=== PATIENT | male | born 1945 | race Caucasian/White ===

== ENCOUNTER 2017-02-01 06:55 | Emergency (ER) | payer MEDICARE, OTHER ==
[~2017-02-01] VITALS: Ht 177.8 cm; Wt 113.4 kg
[~2017-02-01 06:55] MED LIST: ALPRAZOLAM0.5 MG PO; ASPIRIN325 MG PO; BUPROPION XL150 MG PO; COZAAR100 MG PO; DILAUDID4 MG PO; DILTIAZEM 24HR300 M1 PO; ESCITALOPRAM OX10 MG PO; FLUOXETINE HCL20 MG PO; LEVAQUIN500 MG PO; LIPITOR10 MG PO; LITHIUM CARBON300 M1 PO; MIRALAX17 GM PO; NORCO 10-325 T1 EACH PO; OXYCODONE HCL5 MG PO; PROPRANOLOL HCL20 MG; TRAZODONE HCL50 MG PO; XARELTO10 MG PO
== END 2017-02-01 08:05 | disposition home or self-care (01) ==
LOC: ED 06:55
DX: F41.9 Anxiety disorder, unspecified (principal); I10 Essential (primary) hypertension; E78.00 Pure hypercholesterolemia, unspecified; Z79.899 Other long term (current) drug therapy
CPT/HCPCS: 96374; 99284; J2060

== ENCOUNTER 2017-03-01 06:57 | Emergency (ER) | payer MEDICARE, OTHER ==
[~2017-03-01] VITALS: Ht 177.8 cm; Wt 113.4 kg
== END 2017-03-01 08:17 | disposition home or self-care (01) ==
LOC: ED 06:57
DX: F41.9 Anxiety disorder, unspecified (principal); I10 Essential (primary) hypertension; E78.00 Pure hypercholesterolemia, unspecified; Z79.899 Other long term (current) drug therapy
CPT/HCPCS: 96372; 99282; J2060

== ENCOUNTER 2018-01-18 22:14 | Observation (INO) | payer MEDICARE, OTHER ==
[~2018-01-18] VITALS: Ht 177.8 cm; Wt 108.5 kg
--- OUTSIDE RECORDS SUMMARY | ~2018-01-18 | XMS | Clinical Summary ---
Demographics + + + | Address | [address] | | | [place] [address] | + + + | Home Phone | | + + + | Preferred Language | Unknown | + + + | Marital Status | | + + + | Voodoo Affiliation | Unknown | + + + | Race | Unknown | + + + | Ethnic Group | Unknown | + + + Author + + + | Author | [facility] | + + + | Organization | [facility] | + + + | Address | Unknown | + + + | Phone | Unavailable | + + + Support + + + + + | Name | Relationship | Address | Phone | + + + + + | Johnson Flowers | ECON | [address] | | | | | [place] | | | | | [address] | | + + + + + Care Team Providers + +------+ + | Care Coal Mill Operator Name | Role | Phone | + +------+ + PP | Unavailable | + +------+ + Allergies Not on File Current Medications Not on file Active Problems Not on file Social History + +-------+ +--------+------+ | Tobacco [...] on file | | + + + Plan of Treatment Not on file Results Not on filefrom Last 3 Months"
--- OUTSIDE RECORDS SUMMARY | ~2018-01-18 | XMS | Clinical Summary ---
Demographics + + + | Address | [address] | | | [place] [address] | + + + | Home Phone | | + + + | Preferred Language | Unknown | + + + | Marital Status | | + + + | Confucianism Affiliation | Unknown | + + + | Race | Unknown | + + + | Ethnic Group | Unknown | + + + Author + + + | Author | [facility] | | | and [place] | + + + | Organization | [facility] | | | and [place] | + + + | Address | Unknown | + + + | Phone | Unavailable | + + + Support + + +---------+ + | Name | Relationship | Address | Phone | + + +---------+ + | RAHEEM FLOWERS | ECON | Unknown | | + + +---------+ + Care Team Providers + +------+ + | Care Database Technician Name | Role | Phone | [...] | + + + Plan of Treatment + [...] Vaccine: Influenza | | | | | (#1) | 8 | | | + + + + + Results Not on filefrom Last 3 Months"
--- OUTSIDE RECORDS SUMMARY | ~2018-01-18 | XMS | Clinical Summary ---
Demographics + + + | Address | [address] | | | [place] [address] | + + + | Home Phone | | + + + | Preferred Language | Unknown | + + + | Marital Status | | + + + | Rastafarian Affiliation | Unknown | + + + | Race | Unknown | + + + | Ethnic Group | Unknown | + + + Author + + + | Author | [facility] | + + + | Organization | [facility] | + + + | Address | Unknown | + + + | Phone | Unavailable | + + + Support + + + + + | Name | Relationship | Address | Phone | + + + + + | Johnson Flowers | ECON | [address] | | | | | [place] | | | | | [address] | | + + + + + Care Team Providers + +------+ + | Care Laboratory Machinist Name | Role | Phone | + [...]
--- OUTSIDE RECORDS SUMMARY | ~2018-01-18 | XMS | Clinical Summary ---
Demographics + + + | Address | [address] | | | [place] [address] | + + + | Home Phone | | + + + | Preferred Language | Unknown | + + + | Marital Status | | + + + | Orthodoxy Affiliation | Unknown | + + + | Race | Unknown | + + + | Ethnic Group | Unknown | + + + Author + + + | Author | [facility] | | | and [place] | + + + | Organization | [facility] | | | and [...] Team Providers + +------+ + | Care Certified Medical Transcriptionist Name | Role | Phone | + [...]
--- OUTSIDE RECORDS SUMMARY | ~2018-01-18 | XMS | Clinical Summary ---
Demographics + + + | Address | [address] | | | [place] [address] | + + + | Home Phone | | + + + | Preferred Language | Unknown | + + + | Marital Status | | + + + | Taoist Affiliation | Unknown | + + + | Race | Unknown | + + + | Ethnic Group | Unknown | + + + Author + + + | Author | [facility] | + + + | Organization | [facility] | + + + | Address | Unknown | + + + | Phone | Unavailable | + + + Support + + + + + | Name | Relationship | Address | Phone | + + + + + | Johnson Flowers | ECON | [address] | | | | | [place] | | | | | [address] | | + + + + + Care Team Providers + +------+ + | Care Business Intelligence Manager Name | Role | Phone | [...]
--- OUTSIDE RECORDS SUMMARY | ~2018-01-18 | XMS | Clinical Summary ---
Demographics + + + | Address | [address] | | | [place] [address] | + + + | Home Phone [...] + | Author | [facility] | | | and [place] | + + + | Organization | [facility] | | | and [place] [...] Team Providers + +------+ + | Care Fixer Supervisor Name | Role | Phone | [...]
--- OUTSIDE RECORDS SUMMARY | ~2018-01-18 | XMS | Clinical Summary ---
Demographics + + + | Address | [address] | | | [place] [address] | + + + | Home Phone | | + + + | Preferred Language | Unknown | + + + | Marital Status | | + + + | Confucianism Affiliation | Unknown | + + + | Race | Unknown | + + + | Ethnic Group | Unknown | + + + Author + + + | Author | [facility] | | | and [place] | + + + | Organization | [facility] | | | and [...] Team Providers + +------+ + | Care Multimedia Authoring Specialist Name | Role | Phone | [...]
--- OUTSIDE RECORDS SUMMARY | ~2018-01-18 | XMS | Clinical Summary ---
Demographics + + + | Address | [address] | | | [place] [address] | + + + | Home Phone [...] + + + | Author | [facility] | + + + | Organization | [facility] | + + + | Address | Unknown | + + + | Phone | Unavailable | + + + Support + + + + + | Name | Relationship | Address | Phone | + + + + + | Johnson Flowers | ECON | [address] | | | | | [place] | | | | | [address] | | + + + + + Care Team Providers + +------+ + | Care Oil Well Services Field Supervisor Name | Role | Phone | [...]
--- NOTE | 2018-01-19 02:37 | NUR ---
PATIENT REQUESTING XANAX FOR ANXIETY, PT ANXIOUS ABOUT BEING IN HOSP. TELE#1 IN PLACE, DR NEUMANN NOTIFIED, NEW ORDERS FOR LR AT 100CC/HR AND TO RESTART HOME MED OF XANAX 1MG PO TIDPRN FOR ANXIETY
--- NOTE | 2018-01-19 02:39 | NUR ---
PATIENT ARRIVED TO THE FLOOR VIA STRETCHER. PATIENT AMBULATED FROM THE STRETCHER TO THE HOSPITAL BED A SBA. PATIENTS ADMISSION COMPLETED. PATIENT ASSESMENT COMPLETED AND RECORDED. PATIENT PLACED ON TELE #1. PATIENT ORIENTED TO ROOM AND UNIT. PATIENT VERALIZED UNDERSTANDING. PATIENT DENIES ANY FURTHER NEEDS AT THIS TIME. CALL LIGHT IN REACH.
--- NOTE | 2018-01-19 02:56 | NUR ---
PATIENT GIVEN PRN ANXIETY MEDICATION PER REQUEST. PATIENTS IV FLUIDS STARTED PER ORDER. PATIENT DENIES ANY NEEDS. CALL LIGHT IN REACH.
--- NOTE | 2018-01-19 03:44 | NUR ---
HELPED PT GO TO THE BATHROOM AND BACK TO BED WITH FWW. FIXED HIS TELE. BEDSIDE TABLE AND CALL LIGHT WITHIN REACH.
--- NOTE | 2018-01-19 04:37 | NUR ---
PATIENT HAS RESTED WELL SINCE ARRIVAL. PATIENT IS ON A REGULAR DIET AND HAS NOT EATEN SINCE ARRIVING TO THE FLOOR. PATIENT IS ON TELE #1, SR, HR IN THE 80'S. PATIENT IS A SBA. PATIENT IS AAOX3 AND USES CALL LIGHT APPROPRIATELY.
--- NOTE | 2018-01-19 05:20 | NUR ---
PATIENTS VITALS TAKEN AND RECORDED WITH CEO AND FOUNDER. PATIENT ASSISTED TO THE RESTROOM A SBA. PATIENT WAS ABLE TO VOID. PATIENT IS BACK IN BED RESTING. PATIENT ASSESMENT COMPLETED. PATIENT DENIES ANY PAIN OR SOB. PATIENT IS ON TELE #1, SR, HR 78. PATIENT DENIES ANY FURTHER NEEDS. CALL LIGHT IN REACH.
--- NOTE | 2018-01-19 06:20 | NUR ---
HELPED PT TO THE BATHROOM AND BACK TO BED WITH HIS FWW. BEDSIDE TABLE AND CALL LIGHT WITHIN REACH.
--- NOTE | 2018-01-19 07:40 | NUR ---
DR. NEUMANN IN TO SEE PT, DOING ASSESSMENT AT THIS TIME. PT SITTING UP AT EDGE OF BED. PT ALERT, ORIENTED X 4. PERSONAL SUPPLIES AND CALL LIGHT IN REACH. PT JUST RETURNED FROM BATHROOM, VOIDED 175 ML YELLOW URINE.
--- NOTE | 2018-01-19 08:46 | NUR ---
PT REPORTED 8/10 PAIN TO HIS BACK. GAVE NORCO 10/325 MG, 2 TABS PO PRN. PT'S BREAKFAST DELIVERED BY DIETARY. PT UP TO BATHROOM USING FWW WITH STANDBY ASSIST.
--- NOTE | 2018-01-19 09:15 | NUR ---
JORDAN, DIAGNOSTIC IMAGING IN TO GET PT FOR CT. PT TRANSFERED TO W/C. TO GO TO CT FOR ABDOMEN AND PELVIC CT.
--- NOTE | 2018-01-19 11:40 | NUR ---
PT SITTING UP IN BED. DENIED NEED TO USE RESTROOM. PERSONAL SUPPLIES AND CALL LIGHT IN REACH. NO C/O SHORTNESS OF BREATH OR CHEST PAIN.
--- NOTE | 2018-01-19 14:13 | NUR ---
PATIENT RESTING IN BED, EYES CLOSED. OCCUPATIONAL THERAPY IN ROOM AT THIS TIME. NO OTHER NEEDS.
--- NOTE | 2018-01-19 14:30 | EKG ---
[facility] [address] [place], [place] [address] Signed Atrial flutter with 2:[address] abnormality Abnormal ECG No previous ECGs available Confirmed by LEANNE NEUMANN DO ([id number]) on 01/19/2018 2:30:02 PM Electronically Signed By: LEANNE NEUMANN DO 01/19/18 1430 PATIENT NAME: CLAUDIO ROBERTSRanjeet ECKERT Electrocardiogram DATE OF : 41 PHYSICIAN: LEANNE NEUMANN DO REPORT #: [id number] REPORT IS CONFIDENTIAL AND NOT TO BE RELEASED WITHOUT AUTHORIZATION
--- NOTE | 2018-01-19 14:31 | EKG ---
[facility] [address], [place] [address] Signed Atrial flutter with 4:[address] abnormality Abnormal ECG When compared with ECG of 18-JAN-2018 22:19, (Unconfirmed) Vent. rate has decreased BY 67 BPM Confirmed by LEANNE NEUMANN DO ([id number]) on 01/19/2018 2:30:47 PM Electronically Signed By: LEANNE NEUMANN DO 01/19/18 1431 PATIENT NAME: MOSHE ROBERTS BABAR Electrocardiogram DATE OF : 41 PHYSICIAN: LEANNE NEUMANN DO REPORT #: [id number] REPORT IS CONFIDENTIAL AND NOT TO BE RELEASED WITHOUT AUTHORIZATION
--- NOTE | 2018-01-19 14:40 | NUR ---
PT C/O 01/05 TO HIPS, BACK, AND HIS RIGHT SHOULDER, PT REPORTS THESE ARE CHRONIC. GAVE PT NORCO 10/325 MG 2 TABS PO PRN. PT DENIED OTHER NEEDS, PERSONAL SUPPLIES AND CALL LIGHT IN REACH.
[2018-01-19] MEDS ORDERED: CARTIA XT240 MG PO (16:57)
--- NOTE | 2018-01-19 17:00 | NUR ---
MED REC COMPLETE
--- NOTE | 2018-01-19 17:09 | NUR ---
PT GIVEN VERBAL AND PRINTED EDUCATION ON METOPROLOL, ROCEPHIN, AND LOVENOX. QUESTIONS ASKED AND ANSWERED, PT VERBALIZED UNDERSTANDING. PT IN BED. PT'S BOSS IN TO VISIT HIM. PT GIVEN FRESH ICE WATER. PT DENIED OTHER NEEDS AT THIS TIME. PERSONAL SUPPLIES AND CALL LIGHT IN REACH. PT DENIED SHORTNESS OF BREATH OR CHEST PAIN.
--- NOTE | 2018-01-19 18:24 | NUR ---
PT HAS LR INFUSING AT 100 CC/HR. PT ON A REGULAR DIET. IS TAKING METOPROLOL 25 MG PO BID FOR AFLUTTER WITH RVR, ON TELE # 1, HR HAS BEEN 70s-90s, REMAINED IN AFLUTTER. IS TAKING ROCEPHINE 2 MG IV DAILY FOR UTI. HAD A BM THIS SHIFT. PT UP WITH STANDBY TO 1 PERSON ASSIST WITH FWW. PT WILL HAVE A BMP AND CBC DRAWN IN AM. PT HAS OCCUPATIONAL AND PHYSICAL THERAPY.
--- NOTE | 2018-01-19 18:38 | NUR ---
PATIENT SITTING UP IN BED, CALL LIGHT IN REACH. NO OTHER NEEDS AT THIS TIME.
--- NOTE | 2018-01-19 19:25 | NUR ---
IN ROOM FOR REPORT. PT LAYING IN BED COMFORTABLY WITH FAMILY AT BEDSIDE. PT DENIES FURTHER REQUESTS AT THIS TIME. CALL LIGHT WITHIN REACH. BED IN LOW POSITION.
--- NOTE | 2018-01-19 21:16 | NUR ---
PATIENT GIVEN PRN PAIN MEDICATION PER ORDER. PATIENT ASSISTED TO THE RESTROOM. PATIENT WAS ABLE TO VOID. PATIENT IS BACK IN BED RESTING. NO FURTHER NEEDS NOTED. SCDS IN PLACE. IV INFUSING. CALL LIGHT IN REACH.
--- NOTE | 2018-01-19 22:06 | NUR ---
IN ROOM TO ADMIN PT'S 2100 MEDS PER EMAR. SHIFT ASSESSMENT COMPLETE. PT RESTING IN BED. AOX4, APPROPRIATE. PT DENIED NEED FOR ALPRAZOLAM FOR SLEEP WELL STOOL SOFTENER. MEDICATIONS WITHHELD. EDUCATION PROVIDED. PT'S LUNG SOUNDS CLEAR BILATERALLY, HEART SOUNDS DIMINISHED, RHYTHM REMAINS IRREGULAR, REMAINS A-FLUTTER ON TELE #1. RATE BETWEEN MID 70-80'S. REMAINS ON RA. O2 SAT 95%. PULSES STRONG UPPER/LOWER EXTREMITIES. BT ACTIVE IN ALL QUADRANTS. PT MENTIONS THAT HE HAS SUFFERED FROM CHRONIC BACK/HIP PAIN, CURRENTLY IN NO PAIN 0/10. GENERAL WEAKNESS IN UPPER EXTREMITIES MENTIONED "BAD SHOULDER", RAW PRODUCTS DIRECTOR STRONG, EQUAL. PT GIVEN WARM BLANKETS, DENIES ANY FURTHER REQUESTS. CALL LIGHT WITHIN REACH. BED IN LOW POSITION.
--- NOTE | 2018-01-20 00:18 | NUR ---
PT UP TO BATHROOM WITH 1 PERSON SBA AND FWW. VOIDED 150 MLS CLEAR YELLOW URINE. DENIES ANY DIZZINESS, OR SOB/CP. DENIES PAIN, 0/10, DENIES NEED FOR PAIN MEDICATION. PT AMBULATED WELL, DISCUSSED CORRECT USE OF FWW, AND IMPORTANCE OF SAFE AMBULATION, AND FALL PREVENTION. QUESTIONS ANSWERED. THERMOSTAT ADJUSTED, SCD'S IN PLACE, BED IN LOW POSITION, CALL LIGHT WITHIN REACH. IV INFUSING WNL. NO FURTHER REQUESTS.
--- NOTE | 2018-01-20 01:20 | NUR ---
tele battery changed. patient reports 7/10 pain in joints, mostly back. 1 tab norco provided. patient declines further needs. vs done, wnl.
--- NOTE | 2018-01-20 03:15 | NUR ---
PT UP TO BATHROOM WITH 1 PERSON SBA AND FWW. PT DENIES ANY DIZZINESS/LIGHT HEADEDNESS UPON STANDING. SHIFT ASSESSMENT COMPLETE. LUNG SOUNDS CLEAR. HEART SOUNDS HEARD, RHYTHM IRREGULAR, REMAINS A-FLUTTER ON TELE #1 HR BETWEEN 70'S-80'S. PT C/O PAIN LEVEL OF 5/10 R/T CHRONIC BACK PAIN. PT REFUSED NEED FOR MEDICATION STATING HE DOESN'T NEED ANY. PT BACK INTO BED WITH SCD'S. IV REMAINS WNL. CALL LIGHT WITHIN REACH. BED IN LOW POSITION.
--- NOTE | 2018-01-20 05:54 | NUR ---
VITALS AND I&OS DONE AND CHARTED. GARBAGES EMPTIED. DAILY WEIGHT DONE AND CHARTED. BEDSIDE TABLE AND CALL LIGHT WITHIN REACH.FRESH WATER GIVEN.
--- NOTE | 2018-01-20 06:01 | NUR ---
HELPED PT TO THE BATHROOM AND BACK TO BED WITH HIS FWW.
--- NOTE | 2018-01-20 06:31 | NUR ---
PT SLEPT WELL THROUGHOUT THE NIGHT. GOT UP TO RESTROOM SEVERAL TIMES IN NIGHT. ADEQUATE URINE OUTPUT. AMBULATES WELL WITH 1 PERSON SBA AND FWW. DENIES DIZZINIESS/LIGHT HEADEDNESS. EXTREMITIES REMAIN WEAK. DENIES SOB/CP WITH AMBULATION. REMAINS A-FLUTTER W/HR IN MID 70'S-80'S ON TELE #1. PRN NORCO X3 FOR CHRONIC BACK/HIP PAIN. TOLERATING RA. LR @ 100. REGULAR DIET.
--- NOTE | 2018-01-20 08:10 | NUR ---
PT SITTING IN BED EATING BREAKFAST AT THIS TIME. PT CO/ CHRONIC BACK PAIN OF A 6/10. PT STATES HIS GOAL OF THE DAY IS A 3 OR 4 BUT THAT A 6 IS TOLERABLE. NO N/V, NO NUMBNESS/TINGLING, NO CHEST PAIN, RACING HR OR SOB. EDUCATIONG GIVEN IN REGARDS TO MEDICATION, ESPECIALLY LOPRESSOR AND ITS EFFECTS ON A FLUTTER/HEART RATE. ASSESSMENT AND MEDICATIONS COMPLETED. NO QUESTIONS OR CONCERNS AT THIS TIME. CALL LIGHT AND BELONGINGS WITHIN REACH. FALL PRECAUTIONS IN PLACE. WILL CONTINUE TO MONITOR.
--- NOTE | 2018-01-20 09:24 | NUR ---
pt asked to get up to use the bathroom, assisted pt to bathroom, pt voided, then pt returned to bed anf is sitting up on bed with call light in reach. pt asked for his personal electric razor out of his bag.
--- NOTE | 2018-01-20 12:51 | NUR ---
PT SITTING ON EDGE OF BED; STATES HIS PAIN HAS IMPROVED TO A 6 AFTER GETTING PRN PAIN MEDICATION 2 HOURS AGO. HE HAS NO QUESTIONS OR CONCERNS AT THIS TIME; STATES HE IS INTERESTED IN TAKING A SHOWER SOON. CALL LIGHT AND BELONGINGS WITHIN REACH. WILL CONTINUE TO MONITOR.
--- NOTE | 2018-01-20 13:35 | NUR ---
pt showered himself and only needed set up help. pt aslo brushed teeth and shaved. pt then returned to bed and is sitting up safely with call light inreach.
--- NOTE | 2018-01-20 14:26 | NUR ---
pt is resting in bed. pt has no needs at this time. call light within reach.
--- NOTE | 2018-01-20 14:45 | NUR ---
PT'S PAIN TOLERABLE AT THIS TIME. ASSESSMENT COMPLETED. PT NEEDS TO AMBULATE HALLWAY PER DR. REYES'S REQUEST; PT STATES HE WANTS TO DO THIS AT 1500. CALL LIGHT WITHIN REACH. WILL CONTINUE TO MONITOR.
--- NOTE | 2018-01-20 15:10 | NUR ---
PT AMBULATING WITH STAND BY ASSIST/SUPERVISION AT THIS TIME IN THE HALLWAY; NUMEROUS LAPS AROUND THE UNIT WITH COMMUNITY MANAGER AT HIS SIDE; STATES NO ISSUES WHILE AMBULATING; THIS RN IS MONITORING HE TELE WHILE AMBULATING; HR BOUNCES BETWEEN MID 90'S AND 105. NO C/O SOB OR CHEST PAIN. DR. REYES INFORMED OF HIS AMBULATION WITH NO ISSUES ON TELE. WILL CONTINUE TO MONITOR.
--- NOTE | 2018-01-20 17:38 | NUR ---
pt is sitting up in bed eating dinner. pt has a friend in room visiting. pt has no complaints at this time. call light in reach.
--- NOTE | 2018-01-20 18:20 | NUR ---
PT VS AND CONDITION STABLE TODAY. PT PLEASANT, CALM AND COOPERATIVE WITH INTERMITTENT C/O CHRONIC BACK PAIN. PRN MEDICATION HELPS CONTROL THIS. TELE DC'D TODAY. SALINE LOCKED. BM TODAY. STEADY AND STRONG ON FEET. NO C/O CHEST PAIN OR SOB. PLAN TO DC TOMORROW. RESTING IN BED WATCHING TV AT THIS TIME. CALL LIGHT WITHIN REACH. WILL CONTINUE TO MONITOR.
--- NOTE | 2018-01-20 19:20 | NUR ---
IN ROOM FOR REPORT. PT SETTING UP IN BED. NO REQUESTS AT THIS TIME. CALL LIGHT WITHIN REACH.
--- NOTE | 2018-01-20 20:32 | NUR ---
PT REQUESTED PRN NORCO FOR PAIN OF 01/05 R/T CHRONIC BACK PAIN. PT GIVEN 1 TAB NORCO PER EMAR. NO FURTHER REQUESTS AT THIS TIME. CALL LIGHT WITHIN REACH.
--- NOTE | 2018-01-20 21:42 | NUR ---
IN ROOM TO ADMIN EVENING MEDS. SHIFT ASSESSMENT COMPLETE. PT SITTING UP AT BEDSIDE WATCHING TELEVISION. EDUCATION PROVIDED REGARDING MEDICATIONS. DENIES ANY PAIN AT THIS MOMENT. DENIES SOB/CP. PULSES EQUAL BILATERALLY, RHYTHM IRREGULAR. LS CLEAR, BT ACTIVE. PT AMBULATED FROM BED TO BATHROOM INDEPENDENTLY DENIES ANY DIFFICULTY, APPEARS STEADY ON FEET. IV SL. NO NEEDS AT THIS TIME. CALL LIGHT WITHIN REACH.
--- NOTE | 2018-01-21 03:46 | NUR ---
PT CALLED NURSING STATION STATING THAT HE WOULD LIKE A PAIN PILL. PT C/O 12/05 PAIN R/T CHRONIC BACK PAIN. PT GIVEN 1 NORCO PO PER EMAR. NO FURTHER REQUESTS AT THIS TIME. CALL LIGHT WITHIN REACH.
--- NOTE | 2018-01-21 06:09 | NUR ---
PT SLEPT OFF AND ON THROUGHOUT THE NIGHT. PT DID REQUIRE PRN PAIN MEDICATION PER EMAR TWICE THROUGHOUT THE SHIFT. PT A0X4, INDEPENDENT IN ROOM. GOOD URINE OUTPUT. NO C/O SOB/CP, NO DIZZINESS OR LIGHT HEADEDNESS WITH AMBULATION. PT REMAINS ON RA. IV REMAINS SL. REGULAR DIET TOLERATING WELL. NO COMPLAINTS OF N/V/D. HEART RHYTHM REMAINS IRREGULAR. CALL LIGHT WITHIN REACH, NO REQUESTS AT THIS TIME.
--- NOTE | 2018-01-21 06:42 | NUR ---
STANDING WEIGHT AND I&OS DONE AND CHARTED. OFFERED PT MORE ICE WATER , HE REFUSED AND SAID IT TASTED REALLY BAD. I OFFERED HIM SOME JUICE OR OTHER BEVERAGE, HE REFUSED. PT NEEDS NOTHING ELSE AT THIS TIME.
--- NOTE | 2018-01-21 07:52 | NUR ---
patient is awake, said he didnt have much of an appitite and ordered only apple juice for breakfast
--- NOTE | 2018-01-21 08:50 | NUR ---
PT RESTING COMFORTABLY IN BED WATCHING TV AT THIS TIME WITH A C/O CHRONIC BACK PAIN OF A 5/10, STATING THAT THIS WAS TOLERABLE AND PAIN CONTROL WITH PRN PXY IS ADEQUATE. PT PLEASANT, CALM AND COOPERATIVE WITH NO OTHER COMPLAINTS. FURTHER EDUCATION COMPLETED WIHT PT IN REGARDS TO ELIQUIS AND ATRIAL FLUTTER. PT HAD MODERATE UNDERSTANDING BUT STILL NEEDS REINFORCEMENT AND CONTINUING EDUCATION. SALINE LOCKED. LAST BM YESTERDAY. NO QUESTIONS OR CONCERNS AT THIS TIME. CALL LIGHT AND BELONGINGS WITHIN REACH. WILL CONTINUE TO MONITOR.
[2018-01-21] MEDS ORDERED: ELIQUIS5 MG PO (09:27)
[2018-01-21] MEDS ORDERED: BACTRIM DS TAB1 EACH PO (09:27)
[2018-01-21] MEDS ORDERED: TOPROL XL50 MG PO (09:28)
--- NOTE | 2018-01-21 09:40 | NUR ---
pt has no needs at this time. pt sitting on side of bed. call light within reach.
--- NOTE | 2018-01-21 10:24 | NUR ---
PT SITTING UP IN BED WATCHING TV WITH INCREASED PAIN IN HIS BACK; REQUESTED 1 PAIN PILL WHICH WAS GIVEN AT THIS TIME. NO OTHER QUESTIONS OR CONCERNS. PT READY FOR DC. AWAITING PHARMACY TO PROVIDE EDUCATION. CALL LIGHT WITHIN REACH. WILL CONTINUE TO MONITOR.
== END 2018-01-21 11:25 | disposition home or self-care (01) ==
LOC: ED 22:14 → MS 22:15 → ED 01-19 01:31 → MS 01-19 01:31
PROVIDERS: ADMIT Student in an Organized Health Care Education/Training Program
DX: I48.92 Unspecified atrial flutter (principal); I48.91 Unspecified atrial fibrillation; N30.00 Acute cystitis without hematuria; B96.20 Unspecified Escherichia coli [E. coli] as the cause of diseases classified elsewhere; E78.5 Hyperlipidemia, unspecified; I10 Essential (primary) hypertension; F41.9 Anxiety disorder, unspecified; G89.29 Other chronic pain; M54.9 Dorsalgia, unspecified; F11.20 Opioid dependence, uncomplicated; F51.04 Psychophysiologic insomnia; Z79.899 Other long term (current) drug therapy
CPT/HCPCS: 36415; 71045; 71260; 74176; 80048; 80053; 81001; 83605; 83735; 83880; 84443; 84484; 85025; 85379; 85610; 85730; 87077; 87088; 87186; 93005; 93010; 96372; 96374; 96375; 96376; 97161; 97165; 99285; G0378; G8978; G8979; G8980; J0696; J1650; J7120; Q9967

== ENCOUNTER 2019-09-10 14:03 | Emergency (ER) | payer MEDICARE, OTHER ==
[~2019-09-10] VITALS: Ht 177.8 cm; Wt 108.5 kg
[~2019-09-10 14:03] MED LIST changes: +BACTRIM DS TAB1 EACH PO; +CARTIA XT240 MG PO; +ELIQUIS5 MG PO; +TOPROL XL50 MG PO
--- OUTSIDE RECORDS SUMMARY | 2019-09-10 14:06 | XMS ---
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 String Studies Director Events No recent Security Events currently on file CRITERIA MET - Group Notification - PDMP CARE PROVIDERS BRETT DALTON Physician Horse Breeder 01/22/2018-Current PHONE: [phone] [place] has no Care Guidelines for this patient. Sheila VISIT COUNT (12 MO.) 1 MALA [facility] TOTAL 1 NOTE: Visits indicate total known visits. ED/UCC VISIT TRACKING (12 MO.) 09/10/2019 14:04 MALA [facility]i [place] TYPE: Emergency COMPLAINT: - SOB INPATIENT VISIT TRACKING (12 MO.) No inpatient visits to display in this time frame [email or web address]
[2019-09-10] MEDS ORDERED: FUROSEMIDE20 MG PO (16:26)
[2019-09-10] MEDS ORDERED: ALPRAZOLAM0.5 MG PO (16:26)
--- NOTE | 2019-09-11 12:45 | EKG ---
[facility] [address], [place] [address] Signed Normal sinus rhythm Normal ECG When compared with ECG of 12-AUG-2019 16:56, No significant change was found Confirmed by NATALIE REYES MD ([id number]) on 09/11/2019 12:45:10 PM Electronically Signed By: NATALIE REYES MD 09/11/19 1245 PATIENT NAME: MOSHE ROBERTS Electrocardiogram DATE OF : 41 PHYSICIAN: NATALIE REYES MD REPORT #: [id number] REPORT IS CONFIDENTIAL AND NOT TO BE RELEASED WITHOUT AUTHORIZATION
== END 2019-09-10 16:36 | disposition home or self-care (01) ==
LOC: ED 14:03
DX: I11.0 Hypertensive heart disease with heart failure (principal); I50.9 Heart failure, unspecified; F41.9 Anxiety disorder, unspecified; E78.00 Pure hypercholesterolemia, unspecified; Z79.899 Other long term (current) drug therapy
CPT/HCPCS: 71045; 80053; 83735; 83880; 84484; 85025; 93005; 93010; 99285-25

== ENCOUNTER 2019-10-01 02:13 | Emergency (ER) | payer MEDICARE, OTHER ==
[~2019-10-01] VITALS: Ht 177.8 cm; Wt 113.4 kg
--- OUTSIDE RECORDS SUMMARY | ~2019-10-01 | XMS | Encounter Summary ---
Demographics + + + | Address | [address] | | | [place] [address] | + + + | Home Phone | | + + + | Preferred Language | Unknown | + + + | Marital Status | | + + + | Jehovah'S Witness Affiliation | Unknown | + + + | Race | Unknown | + + + | Ethnic Group | Unknown | + + + Author + + + | Author | [facility] | | | and [place] | + + + | Organization | [facility] | | | and [place] | + + + | Address | Unknown | + + + | Phone | Unavailable | + + + Support + + + + + | Name | Relationship | Address | Phone | + + + + + | Johnson Flowers | ECON | [address] | | | | | [place] | | | | | [address] | | + + + + + Care Team Providers + +------+ + | Care Exhauster Name | Role | Phone | + [...] + + | 03/25/ | Telephone | [facility] | Radha Sanchez | Medication Question | | 2019 | | CARDIOLOGY [facility] | LEATHA [address] | | | | | [address] | [address] | | | | | [address] | [place] [address] | | | | | [place] | [phone] | | | | | [address] | | | | | | [phone] | | | +--------+ + + + [...] | | | | | | [place] [address] | | | | | | [phone] | | | | | | | | +--------+---------+ + + + documented as of this encounter Visit Diagnoses Not on filedocumented in this encounter"
--- OUTSIDE RECORDS SUMMARY | ~2019-10-01 | XMS | Encounter Summary ---
Demographics + + + | Address | [address] | | | [place] [address] | + + + | Home Phone | | + + + | Preferred Language | Unknown | + + + | Marital Status | | + + + | Mormon Affiliation | Unknown | + + + | Race | Unknown | + + + | Ethnic Group | Unknown | + + + Author + + + | Author | [facility] | | | and [place] | + + + | Organization | [facility] | | | and [place] | + + + | Address | Unknown | + + + | Phone | Unavailable | + + + Support + + + + + | Name | Relationship | Address | Phone | + + + + + | Johnson Flowers | ECON | [address] | | | | | [place] | | | | | [address] | | + + + + + Care Team Providers + +------+ + | Care Auto Transport Driver Name | Role | Phone | + [...] + + | 08/14/ | Telephone | [facility] | Radha Sanchez | Testing | | 2020 | | CARDIOLOGY [facility]J | [address] | | | | | [address] [facility] | [address] | | | | | [address] | [place] [address] | | | | | [place] | [phone] | | | | | [address] | | | | | | [phone] | | | +--------+ + + + [...] | | | | | | [place] [address] | | | | | | [phone] | | | | | | | | +--------+---------+ + + + documented as of this encounter Visit Diagnoses Not on filedocumented in this encounter"
--- OUTSIDE RECORDS SUMMARY | ~2019-10-01 | XMS | Encounter Summary ---
Demographics + + + | Address | [address] | | | [place] [address] | + + + | Home Phone | | + + + | Preferred Language | Unknown | + + + | Marital Status | | + + + | Voodoo Affiliation | Unknown | + + + | Race | Unknown | + + + | Ethnic Group | Unknown | + + + Author + + + | Author | [facility] | | | and [place] | + + + | Organization | [facility] | | | and [place] | + + + | Address | Unknown | + + + | Phone | Unavailable | + + + Support + + + + + | Name | Relationship | Address | Phone | + + + + + | Johnson Flowers | ECON | [address] | | | | | [place] | | | | | [address] | | + + + + + Care Team Providers + +------+ + | Care Human Resources Records Clerk Name | Role | Phone | + +------+ + PCP | Unavailable | + +------+ + Encounter Details +--------+ + + + + | Date | Type | Department | Care Team | Description | +--------+ + + + + | 10/05/ | Hospital | [facility] | Rick Gamez | Open fracture of | | 1997 - | Encounter | [facility] [address] | [address] | middle or proximal | | | | [address] | [place] [address] | phalanx or phalanges | | 10/06/ | | [place], [place] | [phone] | of hand | | 1997 | | [address] | | | | | | [phone] | | | +--------+ + + + [...] | | | | | | [place] [address] | | | | | | [phone] | | | | | | | | +--------+---------+ + + + documented as of this encounter Visit Diagnoses + + | Diagnosis | + + | Open fracture of middle or proximal phalanx or phalanges of hand | + + documented in this encounter"
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
--- OUTSIDE RECORDS SUMMARY | ~2019-10-01 | XMS | Encounter Summary ---
Demographics + + + | Address | [address] | | | [place] [address] | + + + | Home Phone | | + + + | Preferred Language | Unknown | + + + | Marital Status | | + + + | Samaritan Affiliation | Unknown | + + + | Race | Unknown | + + + | Ethnic Group | Unknown | + + + Author + + + | Author | [facility] | | | and [place] | + + + | Organization | [facility] | | | and [place] | + + + | Address | Unknown | + + + | Phone | Unavailable | + + + Support + + + + + | Name | Relationship | Address | Phone | + + + + + | Johnson Flowers | ECON | [address] | | | | | [place] | | | | | [address] | | + + + + + Care Team Providers + +------+ + | Care Personal Care Service Provider Name | Role | Phone | + [...] | +--------+ + + + + | 04/17/ | Telephone | [facility] | Radha Sanchez | Medication Question | | 2019 | | CARDIOLOGY PJ | [address] | | | | | [address] | [address] | | | | | [address] | [place] [address] | | | | | [place] | [phone] | | | | | [address] | | | | | | [phone] | | | +--------+ + + + [...] | | | | | | [place] [address] | | | | | | [phone] | | | | | | | | +--------+---------+ + + + documented as of this encounter Visit Diagnoses Not on filedocumented in this encounter"
--- OUTSIDE RECORDS SUMMARY | ~2019-10-01 | XMS | Encounter Summary ---
Demographics + + + | Address | [address] | | | [place] [address] | + + + | Home Phone | | + + + | Preferred Language | Unknown | + + + | Marital Status | | + + + | Hindu Affiliation | Unknown | + + + | Race | Unknown | + + + | Ethnic Group | Unknown | + + + Author + + + | Author | [facility] | | | and [place] | + + + | Organization | [facility] | | | and [place] | + + + | Address | Unknown | + + + | Phone | Unavailable | + + + Support + + + + + | Name | Relationship | Address | Phone | + + + + + | Johnson Flowers | ECON | [address] | | | | | [place] | | | | | [address] | | + + + + + Care Team Providers + +------+ + | Care Construction Crew Member Name | Role | Phone | + +------+ + | Zahra Quevedo | PCP | | + +------+ + Encounter Details +--------+ + + + + | Date | Type | Department | Care Team | Description | +--------+ + + + + | 03/26/ | Orders Only | [facility] | Radha Sanchez | Mixed hyperlipidemia | | 2019 | | CARDIOLOGY [place] | [address] | (Primary Dx) | | | | [address] | [address] | | | | | [address] [place], [place] | [place] [address] | | | | | [address] | [phone] | | | | | [phone] | | | +--------+ + + + [...] | | | | | | [place] [address] | | | | | | [phone] | | | | | | | | +--------+---------+ + + + documented as of this encounter Visit Diagnoses + + | Diagnosis | + + | Mixed hyperlipidemia - Primary | + + documented in this encounter"
--- OUTSIDE RECORDS SUMMARY | ~2019-10-01 | XMS | Encounter Summary ---
Demographics + + + | Address | [address] | | | [place] [address] | + + + | Home Phone | | + + + | Preferred Language | Unknown | + + + | Marital Status | | + + + | Buddhism Affiliation | Unknown | + + + | Race | Unknown | + + + | Ethnic Group | Unknown | + + + Author + + + | Author | [facility] | | | and [place] | + + + | Organization | [facility] | | | and [place] | + + + | Address | Unknown | + + + | Phone | Unavailable | + + + Support + + + + + | Name | Relationship | Address | Phone | + + + + + | Johnson Flowers | ECON | [address] | | | | | [place] | | | | | [address] | | + + + + + Care Team Providers + +------+ + | Care Performance Improvement Director Name | Role | Phone | + +------+ + | Zahra Quevedo | PCP | | + +------+ + Encounter Details +--------+ + + + + | Date | Type | Department | Care Team | Description | +--------+ + + + + | 01/11/ | Orders Only | [facility] | Radha Sanchez | Paroxysmal atrial | | 2019 | | CARDIOLOGY [place] | [address] | fibrillation (HCC); | | | | [address] | [address] | Localized edema; | | | | [address] | [place] [address] | Essential (primary) | | | | [place], [place] | [phone] | hypertension; Mixed | | | | [address] | | hyperlipidemia; Long | | | | [phone] | | term current use of | [...] | | | | | | [place] [address] | | | | | | [phone] | | | | | | | | +--------+---------+ + + + + +------+--------+ + + | Name | Type | Priori | Associated Diagnoses | Order Schedule | | | | ty | | | + +------+--------+ + + | CBC with | Lab | Routin | 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
--- OUTSIDE RECORDS SUMMARY | ~2019-10-01 | XMS | Encounter Summary ---
Demographics + + + | Address | [address] | | | [place] [address] | + + + | Home Phone | | + + + | Preferred Language | Unknown | + + + | Marital Status | | + + + | Sikh Affiliation | Unknown | + + + | Race | Unknown | + + + | Ethnic Group | Unknown | + + + Author + + + | Author | [facility] | | | and [place] | + + + | Organization | [facility] | | | and [place] | + + + | Address | Unknown | + + + | Phone | Unavailable | + + + Support + + + + + | Name | Relationship | Address | Phone | + + + + + | Johnson Flowers | ECON | [address] | | | | | [place] | | | | | [address] | | + + + + + Care Team Providers + +------+ + | Care Armorer Technician Name | Role | Phone | [...] Provider Unknown | | | | | [place], [place] | [phone] | | | | | [address] | | | | | | [phone] | | | +--------+ + + + [...] | | | | | | [place] [address] | | | | | | [phone] | | | | | | | | +--------+---------+ + + + documented as of this encounter Visit Diagnoses Not on filedocumented in this encounter"
--- OUTSIDE RECORDS SUMMARY | ~2019-10-01 | XMS | Clinical Summary ---
Demographics + + + | Address | [address] | | | [place] [address] | + + + | Home Phone | | + + + | Preferred Language | Unknown | + + + | Marital Status | | + + + | Uatsdin Affiliation | Unknown | + + + | Race | Unknown | + + + | Ethnic Group | Unknown | + + + Author + + + | Author | [facility] (Historical as of | | | 01-12-19) | + + + | Organization | [facility] (Historical as of | | | 01-12-19) | + + + | Address | Unknown | + + + | Phone | Unavailable | + + + Support + + + + + | Name | Relationship | Address | Phone | + + + + + | Johnson Roberts | ECON | [address] | | | | | [place] | | | | | [address] | | + + + + + Care Team Providers + +------+ + | Care Shipwright Helper Name | Role | Phone | + [...] + + | Overview: Eliquis 5 mg BID:[id number] VASC score 3 ( age, HTN) | [...] [place] - [place] | [place] - | [id number] | Medica | | | | | [...] +--------+-------+ + | MEDICAID | [place] | [id number] | | | [address] | | | N | | | | [place] | | | [place]OM | | | | [address] | | | QA AUDITOR | | | | | + +--------+ [...] | Self | [birth year] | Home: | [address] | | | [place] | | 1946 | [phone] | [place] | | | may | | | [address] | [address] | + +--------+ +--------+ + +
--- OUTSIDE RECORDS SUMMARY | ~2019-10-01 | XMS | Encounter Summary ---
Demographics + + + | Address | [address] | | | [place] [address] | + + + | Home Phone | | + + + | Preferred Language | Unknown | + + + | Marital Status | | + + + | Restorationism Affiliation | Unknown | + + + [...] + | Johnson Flowers | ECON | [address] | | | | | [place] | | | | | [address] | | + + + + + Care Team Providers + +------+ + | Care Hooker On Name | Role | Phone | + [...] + + | 03/26/ | Telephone | [facility] | Radha Sanchez | Medication Question | | 2018 | | CARDIOLOGY [place] | [address] | | | | | [address] | [address] | | | | | [address] [place] | [place] [address] | | | | | [address] | [phone] | | | | | [phone] | | | +--------+ + + + [...] | | | | | | [place] [address] | | | | | | [phone] | | | | | | | | +--------+---------+ + + + documented as of this encounter Visit Diagnoses Not on filedocumented in this encounter"
--- OUTSIDE RECORDS SUMMARY | ~2019-10-01 | XMS | Encounter Summary ---
Demographics + + + | Address | [address] | | | [place] [address] | + + + | Home Phone | | + + + | Preferred Language | Unknown | + + + | Marital Status | | + + + | Mormon Affiliation | Unknown | + + + | Race | Unknown | + + + | Ethnic Group | Unknown | + + + Author + + + | Author | [facility] | | | and [place] | + + + | Organization | [facility] | | | and [place] | + + + | Address | Unknown | + + + | Phone | Unavailable | + + + Support + + + + + | Name | Relationship | Address | Phone | + + + + + | Johnson Flowers | ECON | [address] | | | | | [place] | | | | | [address] | | + + + + + Care Team Providers + +------+ + | Care Carpenter And Joiner Name | Role | Phone | + [...] [place] | | | | | [place], [place] | [address] | | | | | [address] | [phone] | | | | | [phone] | | | +--------+ + + + [...] [place], | | | | | | [place] [address] | | | | | | [phone] | | | | | | | [...] 1.00 m/s | | | MV Dec [place]: 2.61 m/s2 MV DecT: 274.46 ms MV E [place]: 0.71 | | | m/s MV E/A Ratio: 0.71 MV PHT: 79.59 ms MVA By PHT: 2.76 | | | cm2 Septal e': 0.04 m/s Septal E/e': 16.10 Lateral e': | | | 0.07 m/s Lateral E/e': 9.86 Greaser Helper: NATALIE Authenticated by: | | | ADOLPH [...] | 4.21 cmLVPWd: 1.32 cmLVOT Area: 3.89 [id number] Diam: 2.22 cm%FS: 28.88 %EF(Teich): | | [...] mlLAESV Index (A-L): 22.56 ml/m2LAAs A2C: 17.44 [id number] A-L A2C: 48.26 mlLALs | | A2C: 5.35 cmLAAs A4C: 18.51 [id number] A-L A4C: 53.52 mlLALs A4C: 5.43 cmRAAs: | | 14.80 gp3ABZLB A-L: 35.75 mlRAESV MOD: 35.14 mlRALs: 5.20 cmTAPSE: 2.96 cmAV | | maxP.16 mmHgAV meanP.10 mmHgAV Vmax: 2.74 m/Nicanor Vmean: 2.11 m/Nicanor VTI: | | 66.30 cmAVA Vmax: 1.13 cm2AVA (VTI): 1.24 wh1OFBA maxP.55 mmHgLVOT meanPG: | | 1.26 mmHgLVSI Dopp: 36.38 ml/m2LVSV Dopp: 82.59 mlLVOT Vmax: 0.79 m/sLVOT Vmean: | | 0.52 m/sLVOT VTI: 21.23 cmMV A [place]: 1.00 m/sMV Dec [place]: 2.61 m/s2MV DecT: | | 274.46 msMV E [place]: 0.71 m/sMV E/A Ratio: 0.71MV PHT: 79.59 msMVA By PHT: 2.76 | | vf8Rcoohq e': 0.04 m/sSeptal E/e': 16.10Lateral e': 0.07 m/sLateral E/e': 9.86 | | Greaser Helper: DHAuthenticated by: Vane CORDOVA Date/Time: 02-14-2018 18:15:1 [...] A [place]: 1.00 m/s | |MV Dec [place]: 2.61 m/s2 | |MV DecT: 274.46 ms | |MV E [place]: 0.71 m/s | |MV E/A Ratio: 0.71 | |MV PHT: 79.59 ms | |MVA By PHT: 2.76 cm2 | |Septal e': 0.04 m/s | |Septal E/e': 16.10 | |Lateral e': 0.07 m/s | |Lateral E/e': 9.86 | | | |Greaser Helper: DH | |Authenticated by: ADOLPH LEGGETT MD [...]
--- OUTSIDE RECORDS SUMMARY | ~2019-10-01 | XMS | Encounter Summary ---
Demographics + + + | Address | [address] | | | [place] [address] | + + + | Home Phone | | + + + | Preferred Language | Unknown | + + + | Marital Status | | + + + | Jehovah'S Witness Affiliation | Unknown | + + + | Race | Unknown | + + + | Ethnic Group | Unknown | + + + Author + + + | Author | [facility] | | | and [place] | + + + | Organization | [facility] | | | and [place] | + + + | Address | Unknown | + + + | Phone | Unavailable | + + + Support + + + + + | Name | Relationship | Address | Phone | + + + + + | Johnson Flowers | ECON | [address] | | | | | [place] | | | | | [address] | | + + + + + Care Team Providers + +------+ + | Care Dairy Feed Worker Name | Role | Phone | + +------+ + PCP | Unavailable | + +------+ + Encounter Details +--------+ + + + + | Date | Type | Department | Care Team | Description | +--------+ + + + + | 05/13/ | Hospital | [facility] | | | | 1998 - | Encounter | MED CTR OP REHAB | | | | | | [address] | | | | 03/10/ | | [place] [address] | | | | 1999 | | [phone] | | | +--------+ + + + [...] | | | | | | [place] [address] | | | | | | [phone] | | | | | | | | +--------+---------+ + + + documented as of this encounter Visit Diagnoses Not on filedocumented in this encounter"
--- OUTSIDE RECORDS SUMMARY | ~2019-10-01 | XMS | Encounter Summary ---
Demographics + + + | Address | [address] | | | [place] [address] | + + + | Home Phone | | + + + | Preferred Language | Unknown | + + + | Marital Status | | + + + | Buddhist Affiliation | Unknown | + + + [...] + | Johnson Flowers | ECON | [address] | | | | | [place] | | | | | [address] | | + + + + + Care Team Providers + +------+ + | Care Archival Records Clerk Name | Role | Phone [...] Provider Unknown | | | | | [place], [place] | [phone] | | | | | [address] | | | | | | [phone] | | | +--------+ + + + [...] | | | | | | [place] [address] | | | | | | [phone] | | | | | | | | +--------+---------+ + + + documented as of this encounter Visit Diagnoses Not on filedocumented in this encounter"
--- OUTSIDE RECORDS SUMMARY | ~2019-10-01 | XMS | Encounter Summary ---
Demographics + + + | Address | [address] | | | [place] [address] | + + + | Home Phone [...] + | Johnson Flowers | ECON | [address] | | | | | [place] | | | | | [address] | | + + + + + Care Team Providers + +------+ + | Care Brace End Mainspring Former Name | Role | Phone | + [...] [place] | | | | | | [address] | [address] Phone: | | | | | | Phone: | [phone] | | | | | | [phone] | Fax: | | | | | | Fax: | [phone] | | | | | | [phone] | | +--------+--------+ + + + + Encounter Details +--------+---------+ + + + | Date | Type | Department | Care Team | Description | +--------+---------+ + + + | 03/25/ | Office | [facility] | Radha Sanchez | Paroxysmal atrial | | 2019 | Visit | CARDIOLOGY [place] | [address] | fibrillation (HCC) | | | | [address] | [address] | (Primary Dx); Aortic | | | | [address] | [place] [address] | stenosis, moderate; | | | | [place] | [phone] | Essential | | | | [address] | | hypertension; Mixed | | | | [phone] | | hyperlipidemia; Long | | | [...] December [address] Leggett's documentation. 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 Low voltage QRS,Rate 57 bpm, MA 17 0 ms, QRS 84 ms, QTC 432 ms . tracing personally reviewed by me EK08/27/2018: Normal sinus rhythm, normal EKG, rate 61 bpm, MA 152 ms, QRS 88 ms, QTC 434 ms, tracing personally reviewed by me Addendum EK08/12/2019: Normal sinus rhythm, normal EKG, ongoing low voltage QRS to limb leads, except lead I, and V1, and lateral leads. Rate 61 bpm, MA 158 ms, QRS 82 ms, QTC 428 [...] 3. Essential hypertension 4. 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 Willie REDMOND [facility] Cardiology 03/25/2019 docum ented in this [...] | | | | | | [place] [address] | | | | | | [phone] | | | | | | | [...] | Mixed hyperlipidemia | + + | USP current use of anticoagulant Encounter for long-term (current) use of | | anticoagulants | + + | Pedal edema Edema | + + | Screening for iron deficiency anemia | + + | Screening for thyroid disorder | + + documented in this encounter
--- OUTSIDE RECORDS SUMMARY | ~2019-10-01 | XMS | Encounter Summary ---
Demographics + + + | Address | [address] | | | [place] [address] | + + + | Home Phone | | + + + | Preferred Language | Unknown | + + + | Marital Status | | + + + | Taoism Affiliation | Unknown | + + + [...] + | Johnson Flowers | ECON | [address] | | | | | [place] | | | | | [address] | | + + + + + Care Team Providers + +------+ + | Care Refrigeration Insulator Name | Role | Phone | + +------+ + PCP | Unavailable | + +------+ + Encounter Details +--------+ + + + + | Date | Type | Department | Care Team | Description | +--------+ + + + + | 04/15/ | Hospital | [facility] | | | | 1998 - | Encounter | MED CTR GENERIC IP | | | | | | CONV DEPT [address] | | | | 04/16/ | | [place], | | | | 1998 | | [place] [address] | | | | | | [phone] | | | +--------+ + + + [...] | | | | | | [place] [address] | | | | | | [phone] | | | | | | | | +--------+---------+ + + + documented as of this encounter Visit Diagnoses Not on filedocumented in this encounter"
--- OUTSIDE RECORDS SUMMARY | ~2019-10-01 | XMS | Encounter Summary ---
Demographics + + + | Address | [address] | | | [place] [address] | + + + | Home Phone | | + + + | Preferred Language | Unknown | + + + | Marital Status | | + + + | Evangelical Affiliation | Unknown | + + + [...] + | Johnson Flowers | ECON | [address] | | | | | [place] | | | | | [address] | | + + + + + Care Team Providers + +------+ + | Care Cable Television Access Coordinator Name | Role | Phone | + +------+ + PCP | Unavailable | + +------+ + Encounter Details +--------+ + + + + | Date | Type | Department | Care Team | Description | +--------+ + + + + | 04/15/ | Hospital | [facility] | | | | 1998 - | Encounter | MED CTR GENERIC IP | | | | | | CONV DEPT [address] | | | | 04/16/ | | [place], | | | | 1998 | | [place] [address] | | | | | | [phone] | | | +--------+ + + + [...] | | | | | | [place] [address] | | | | | | [phone] | | | | | | | | +--------+---------+ + + + documented as of this encounter Visit Diagnoses Not on filedocumented in this encounter"
--- OUTSIDE RECORDS SUMMARY | ~2019-10-01 | XMS | Encounter Summary ---
Demographics + + + | Address | [address] | | | [place] [address] | + + + | Home Phone [...] + | Johnson Flowers | ECON | [address] | | | | | [place] | | | | | [address] | | + + + + + Care Team Providers + +------+ + | Care Gravure Press Set Up Operator Name | Role | Phone | + +------+ + | Zahra Quevedo | PCP | | + +------+ + Encounter Details +--------+ + + + + | Date | Type | Department | Care Team | Description | +--------+ + + + + | 03/26/ | Orders Only | [facility] | Radha Sanchez | Mixed hyperlipidemia | | 2019 | | CARDIOLOGY [place] | [address] | (Primary Dx) | | | | [address] | [address] | | | | | [address] [place], [place] | [place] [address] | | | | | [address] | [phone] | | | | | [phone] | | | +--------+ + + + [...] | | | | | | [place] [address] | | | | | | [phone] | | | | | | | | +--------+---------+ + + + documented as of this encounter Visit Diagnoses + + | Diagnosis | + + | Mixed hyperlipidemia - Primary | + + documented in this encounter"
--- OUTSIDE RECORDS SUMMARY | ~2019-10-01 | XMS | Clinical Summary ---
Demographics + + + | Address | [address] | | | [place] [address] | + + + | Home Phone [...] Organization | [facility] | | | and [place] | + + + | Address | Unknown | + + + | Phone | Unavailable | + + + Support + + + + + | Name | Relationship | Address | Phone | + + + + + | Johnson Flowers | ECON | [address] | | | | | [place] | | | | | [address] | | + + + + + Care Team Providers + +------+ + | Care Drilling Superintendent Name | Role | Phone | + [...] + + | Overview: Eliquis 5 mg BID:[id number] VASC score 3 ( age, HTN) | [...] | | | | | | [place] [address] | | | | | | [phone] | | | | | | | [...] | [facility] | MODA | [id number] | | [phone] | | Medica | [...] Person | Self | [birth year] | | [address] | | | [place] | | 1946 | [phone] | [place] | | | [place] | | | 2 (Home) | [address] | + +--------+ +--------+ + + Advance Directives + + + + + | Type | Date Recorded | Patient | Explanation | | | | Summer Camp Counselor | | + + + + + | Power of | | | | | Filter Plant Supervisor | | | | + + + + + | Advance | | | | | Directive | | | | + + + + +
--- OUTSIDE RECORDS SUMMARY | ~2019-10-01 | XMS | Encounter Summary ---
Demographics + + + | Address | [address] | | | [place] [address] | + + + | Home Phone | | + + + | Preferred Language | Unknown | + + + | Marital Status | | + + + | Judaism Affiliation | Unknown | + + + | Race | Unknown | + + + | Ethnic Group | Unknown | + + + Author + + + | Author | [facility] | | | and [place] | + + + | Organization | [facility] | | | and [place] | + + + | Address | Unknown | + + + | Phone | Unavailable | + + + Support + + + + + | Name | Relationship | Address | Phone | + + + + + | Johnson Flowers | ECON | [address] | | | | | [place] | | | | | [address] | | + + + + + Care Team Providers + +------+ + | Care Transfer Clerk Name | Role | Phone | + +------+ + PCP | Unavailable | + +------+ + Encounter Details +--------+ + + + + | Date | Type | Department | Care Team | Description | +--------+ + + + + | 05/13/ | Hospital | [facility] | | | | 1998 - | Encounter | MED CTR OP REHAB | | | | | | [address] | | | | 03/10/ | | [place] [address] | | | | 1999 | | [phone] | | | +--------+ + + + [...] | | | | | | [place] [address] | | | | | | [phone] | | | | | | | | +--------+---------+ + + + documented as of this encounter Visit Diagnoses Not on filedocumented in this encounter"
--- OUTSIDE RECORDS SUMMARY | ~2019-10-01 | XMS | Encounter Summary ---
Demographics + + + | Address | [address] | | | [place] [address] | + + + | Home Phone | | + + + | Preferred Language | Unknown | + + + | Marital Status | | + + + | Faith Affiliation | Unknown | + + + | Race | Unknown | + + + | Ethnic Group | Unknown | + + + Author + + + | Author | [facility] | | | and [place] | + + + | Organization | [facility] | | | and [place] | + + + | Address | Unknown | + + + | Phone | Unavailable | + + + Support + + + + + | Name | Relationship | Address | Phone | + + + + + | Johnson Flowers | ECON | [address] | | | | | [place] | | | | | [address] | | + + + + + Care Team Providers + +------+ + | Care Photonics Technician Name | Role | Phone | [...] + + | 04/17/ | Telephone | [facility] | Radha Sanchez | Medication Question | | 2019 | | CARDIOLOGY [place] | [address] | | | | | [address] | [address] | | | | | [address] | [place] [address] | | | | | [place] | [phone] | | | | | [address] | | | | | | [phone] | | | +--------+ + + + [...] | | | | | | [place] [address] | | | | | | [phone] | | | | | | | | +--------+---------+ + + + documented as of this encounter Visit Diagnoses Not on filedocumented in this encounter"
--- OUTSIDE RECORDS SUMMARY | ~2019-10-01 | XMS | Encounter Summary ---
Demographics + + + | Address | [address] | | | [place] [address] | + + + | Home Phone | | + + + | Preferred Language | Unknown | + + + | Marital Status | | + + + | Jewish Affiliation | Unknown | + + + | Race | Unknown | + + + | Ethnic Group | Unknown | + + + Author + + + | Author | [facility] | | | and [place] | + + + | Organization | [facility] | | | and [place] | + + + | Address | Unknown | + + + | Phone | Unavailable | + + + Support + + + + + | Name | Relationship | Address | Phone | + + + + + | Johnson Flowers | ECON | [address] | | | | | [place] | | | | | [address] | | + + + + + Care Team Providers + +------+ + | Care Pasting Machine Offbearer Name | Role | Phone | + [...] Provider Unknown | | | | | [place], [place] | [phone] | | | | | [address] | | | | | | [phone] | | | +--------+ + + + [...] | | | | | | [place] [address] | | | | | | [phone] | | | | | | | | +--------+---------+ + + + documented as of this encounter Visit Diagnoses Not on filedocumented in this encounter"
--- OUTSIDE RECORDS SUMMARY | ~2019-10-01 | XMS | Clinical Summary ---
Demographics + + + | Address | [address] | | | [place] [address] | + + + | Home Phone | | + + + | Preferred Language | Unknown | + + + | Marital Status | | + + + | Lutheran Affiliation | Unknown | + + + | Race | Unknown | + + + | Ethnic Group | Unknown | + + + Author + + + | Author | [facility] | | | and [place] | + + + | Organization | [facility] | | | and [place] | + + + | Address | Unknown | + + + | Phone | Unavailable | + + + Support + + + + + | Name | Relationship | Address | Phone | + + + + + | Johnson Flowers | ECON | [address] | | | | | [place] | | | | | [address] | | + + + + + Care Team Providers + +------+ + | Care Recycling Assistant Name | Role | Phone | [...] + + | Overview: Eliquis 5 mg BID:[id number] VASC score 3 ( age, HTN) | [...] | | | | | | [place] [address] | | | | | | [phone] | | | | | | | [...] | [facility] | MODA | [id number] | | [phone] | | Medica | [...] Person | Self | [birth year] | [address] | | | al/[place] | | 1946 | [phone] | [place] | | | may | | | 2 (Home) | [address] | + +--------+ +--------+ + + Advance Directives + + + + + | Type | Date Recorded | Patient | Explanation | | | | Mine Expert | | + + + + + | Power of | | | | | Personal Lines Advisor | | | | + + + + + | Advance | | | | | Directive | | | | + + + + +
--- OUTSIDE RECORDS SUMMARY | ~2019-10-01 | XMS | Clinical Summary ---
Demographics + + + | Address | [address] | | | [place] [address] | + + + | Home Phone | | + + + | Preferred Language | Unknown | + + + | Marital Status | | + + + | Restoration Affiliation | Unknown | + + + | Race | Unknown | + + + | Ethnic Group | Unknown | + + + Author + + + | Author | [email or web address] (Historical as of | | | 01-12-19) | + + + | Organization | [facility] (Historical as of | | | 01-12-19) | + + + | Address | Unknown | + + + | Phone | Unavailable | + + + Support + + + + + | Name | Relationship | Address | Phone | + + + + + | Johnson Roberts | ECON | [address] | | | | | [place] | | | | | [address] | | + + + + + Care Team Providers + +------+ + | Care Change Booth Attendant Name | Role | Phone | [...] + + | Overview: Eliquis 5 mg BID:[id number] VASC score 3 ( age, HTN) | [...] [place] - [place] | [place] - | [id number] | Medica | | | | | [...] +--------+-------+ + | MEDICAID | [place] | [id number] | | | [address] | | | N | | | | [place] | | | TOM | | | | [address] | | | ACID CONDITIONING WORKER | | | | | + +--------+ [...] | Self | [birth year] | Home: | [address] | | | al/[place] | | 1946 | [phone] [place] | | | [place] | | | [phone] | [address] | + +--------+ +--------+ + +
--- OUTSIDE RECORDS SUMMARY | ~2019-10-01 | XMS | Encounter Summary ---
Demographics + + + | Address | [address] | | | [place] [address] | + + + | Home Phone | | + + + | Preferred Language | Unknown | + + + | Marital Status | | + + + | Christian Affiliation | Unknown | + + + | Race | Unknown | + + + | Ethnic Group | Unknown | + + + Author + + + | Author | [facility] | | | and [place] | + + + | Organization | [facility] | | | and [place] | + + + | Address | Unknown | + + + | Phone | Unavailable | + + + Support + + + + + | Name | Relationship | Address | Phone | + + + + + | Johnson Flowers | ECON | [address] | | | | | [place] | | | | | [address] | | + + + + + Care Team Providers + +------+ + | Care Pit Shoveler Name | Role | Phone | + [...] + + | 03/26/ | Telephone | [facility] | Radha Sanchez | Medication Question | | 2018 | | CARDIOLOGY RACHEL | [address] | | | | | [address] | [address] | | | | | [address] [place] | [place] [address] | | | | | [address] | [phone] | | | | | [phone] | | | +--------+ + + + [...] | | | | | | [place] [address] | | | | | | [phone] | | | | | | | | +--------+---------+ + + + documented as of this encounter Visit Diagnoses Not on filedocumented in this encounter"
--- OUTSIDE RECORDS SUMMARY | ~2019-10-01 | XMS | Encounter Summary ---
Demographics + + + | Address | [address] | | | [place] [address] | + + + | Home Phone [...] | Author | [facility] | | | and [place] | + [...] + | Johnson Flowers | ECON | [address] | | | | | [place] | | | | | [address] | | + + + + + Care Team Providers + +------+ + | Care Director Mission Name | Role | Phone | + [...] + + | 08/14/ | Telephone | [facility] | Radha Sanchez | Testing | | 2020 | | CARDIOLOGY [place] | [address] | | | | | [address] [facility] | [address] | | | | | [address] | [place] [address] | | | | | [place] | [phone] | | | | | [address] | | | | | | [phone] | | | +--------+ + + + [...] | | | | | | [place] [address] | | | | | | [phone] | | | | | | | | +--------+---------+ + + + documented as of this encounter Visit Diagnoses Not on filedocumented in this encounter"
--- OUTSIDE RECORDS SUMMARY | ~2019-10-01 | XMS | Encounter Summary ---
Demographics + + + | Address | [address] | | | [place] [address] | + + + | Home Phone | | + + + | Preferred Language | Unknown | + + + | Marital Status | | + + + | Confucianist Affiliation | Unknown | + + + [...] + | Johnson Flowers | ECON | [address] | | | | | [place] | | | | | [address] | | + + + + + Care Team Providers + +------+ + | Care Finance Business Partner Name | Role | Phone | + [...] [place] | | | | | [place], [place] | [address] | | | | | [address] | [phone] | | | | | [phone] | | | +--------+ + + + [...] [place], | | | | | | [place] [address] | | | | | | [phone] | | | | | | | [...] 1.00 m/s | | | MV Dec [place]: 2.61 m/s2 MV DecT: 274.46 ms MV E Rodrig[place]: 0.71 | | | m/s MV E/A Ratio: 0.71 MV PHT: 79.59 ms MVA By PHT: 2.76 | | | cm2 Septal e': 0.04 m/s Septal E/e': 16.10 Lateral e': | | | 0.07 m/s Lateral E/e': 9.86 Spray Unit Feeder: NATALIE Authenticated by: | | | ADOLPH [...] | 4.21 cmLVPWd: 1.32 cmLVOT Area: 3.89 ms4GWIF Diam: 2.22 cm%FS: 28.88 %EF(Teich): | | [...] mlLAESV Index (A-L): 22.56 ml/m2LAAs A2C: 17.44 [id number] A-L A2C: 48.26 mlLALs | | A2C: 5.35 cmLAAs A4C: 18.51 ll7YSLNK A-L A4C: 53.52 mlLALs A4C: 5.43 cmRAAs: | | 14.80 [id number] A-L: 35.75 mlRAESV MOD: 35.14 mlRALs: 5.20 cmTAPSE: 2.96 cmAV | | maxP.16 mmHgAV meanP.10 mmHgAV Vmax: 2.74 m/Nicanor Vmean: 2.11 m/Nicanor VTI: | | 66.30 cmAVA Vmax: 1.13 cm2AVA (VTI): 1.24 qg0ZEHC maxP.55 mmHgLVOT meanPG: | | 1.26 mmHgLVSI Dopp: 36.38 ml/m2LVSV Dopp: 82.59 mlLVOT Vmax: 0.79 m/sLVOT Vmean: | | 0.52 m/sLVOT VTI: 21.23 cmMV A [place]: 1.00 m/sMV Dec [place]: 2.61 m/s2MV DecT: | | 274.46 msMV E [place]: 0.71 m/sMV E/A Ratio: 0.71MV PHT: 79.59 msMVA By PHT: 2.76 | | th4Nejmma e': 0.04 m/sSeptal E/e': 16.10Lateral e': 0.07 m/sLateral E/e': 9.86 | | Spray Unit Feeder: DHAuthenticated by: Vane CORDOVA Date/Time: 02-14-2018 18:15:1 [...] A Rodrig[place]: 1.00 m/s | |MV Dec [place]: 2.61 m/s2 | |MV DecT: 274.46 ms | |MV E [place]: 0.71 m/s | |MV E/A Ratio: 0.71 | |MV PHT: 79.59 ms | |MVA By PHT: 2.76 cm2 | |Septal e': 0.04 m/s | |Septal E/e': 16.10 | |Lateral e': 0.07 m/s | |Lateral E/e': 9.86 | | | |Spray Unit Feeder: DH | |Authenticated by: ADOLPH LEGGETT MD [...]
--- OUTSIDE RECORDS SUMMARY | ~2019-10-01 | XMS | Encounter Summary ---
Demographics + + + | Address | [address] | | | [place] [address] | + + + | Home Phone | | + + + | Preferred Language | Unknown | + + + | Marital Status | | + + + | Confucianist Affiliation | Unknown | + + + | Race | Unknown | + + + | Ethnic Group | Unknown | + + + Author + + + | Author | [facility] | | | and [place] | + + + | Organization | [facility] | | | and [place] | + + + | Address | Unknown | + + + | Phone | Unavailable | + + + Support + + + + + | Name | Relationship | Address | Phone | + + + + + | Johnson Flowers | ECON | [address] | | | | | [place] | | | | | [address] | | + + + + + Care Team Providers + +------+ + | Care Gas Welding Machine Operator Name | Role | Phone [...] + + | 03/25/ | Telephone | [facility] | Radha Sanchez | Medication Question | | 2019 | | CARDIOLOGY [place] | [address] | | | | | [address] | [address] | | | | | [address] | [place] [address] | | | | | [place] | [phone] | | | | | [address] | | | | | | [phone] | | | +--------+ + + + [...] | | | | | | [place] [address] | | | | | | [phone] | | | | | | | | +--------+---------+ + + + documented as of this encounter Visit Diagnoses Not on filedocumented in this encounter"
--- OUTSIDE RECORDS SUMMARY | ~2019-10-01 | XMS | Encounter Summary ---
Demographics + + + | Address | [address] | | | [place] [address] | + + + | Home Phone [...] | Author | [facility] | | | and [place] | + + + | Organization | [facility] | | | and [place] | + + + | Address | Unknown | + + + | Phone | Unavailable | + + + Support + + + + + | Name | Relationship | Address | Phone | + + + + + | Johnson Flowers | ECON | [address] | | | | | [place] | | | | | [address] | | + + + + + Care Team Providers + +------+ + | Care Industrial Millwright Name | Role | Phone | + +------+ + PCP | Unavailable | + +------+ + Encounter Details +--------+ + + + + | Date | Type | Department | Care Team | Description | +--------+ + + + + | 10/05/ | Hospital | [facility] | Rick Gamez | Open fracture of | | 1997 - | Encounter | [facility] [address] | [address] | middle or proximal | | | | [address] | [place] [address] | phalanx or phalanges | | 10/06/ | | [place], [place] | [phone] | of hand | | 1997 | | [address] | | | | | | [phone] | | | +--------+ + + + [...] | | | | | | [place] [address] | | | | | | [phone] | | | | | | | | +--------+---------+ + + + documented as of this encounter Visit Diagnoses + + | Diagnosis | + + | Open fracture of middle or proximal phalanx or phalanges of hand | + + documented in this encounter"
--- OUTSIDE RECORDS SUMMARY | ~2019-10-01 | XMS | Encounter Summary ---
Demographics + + + | Address | [address] | | | [place] [address] | + + + | Home Phone | | + + + | Preferred Language | Unknown | + + + | Marital Status | | + + + | Islam Affiliation | Unknown | + + + [...] + | Johnson Flowers | ECON | [address] | | | | | [place] | | | | | [address] | | + + + + + Care Team Providers + +------+ + | Care Drip Molder Name | Role | Phone | + +------+ + | Zahra Quevedo | PCP | | + +------+ + Encounter Details +--------+ + + + + | Date | Type | Department | Care Team | Description | +--------+ + + + + | 01/11/ | Orders Only | [facility] | Radha Sanchez | Paroxysmal atrial | | 2019 | | CARDIOLOGY [place] | [address] | fibrillation (HCC); | | | | [address] | [address] | Localized edema; | | | | [address] | [place] [address] | Essential (primary) | | | | [place], [place] | [phone] | hypertension; Mixed | | | | [address] | | hyperlipidemia; Long | | | | [phone] | | term current use of | [...] | | | | | | [place] [address] | | | | | | [phone] | | | | | | | [...]
--- OUTSIDE RECORDS SUMMARY | ~2019-10-01 | XMS | Encounter Summary ---
Demographics + + + | Address | [address] | | | [place] [address] | + + + | Home Phone [...] + | Johnson Flowers | ECON | [address] | | | | | [place] | | | | | [address] | | + + + + + Care Team Providers + +------+ + | Care Manager Of Product Name | Role | Phone | + +------+ + | Zahra Quevedo | PCP | | + +------+ + Encounter Details +--------+ + + + + | Date | Type | Department | Care Team | Description | +--------+ + + + + | 08/25/ | Orders Only | [facility] | Radha Sanchez | | | 2019 | | CARDIOLOGY [place] | [address] | | | | | [address] | [address] | | | | | [address] | [place] [address] | | | | | [place], [place] | [phone] | | | | | [address] | | | | | | [phone] | | | +--------+ + + + [...] | | | | | | [place] [address] | | | | | | [phone] | | | | | | | | +--------+---------+ + + + documented as of this encounter Visit Diagnoses Not on filedocumented in this encounter"
--- OUTSIDE RECORDS SUMMARY | ~2019-10-01 | XMS | Encounter Summary ---
Demographics + + + | Address | [address] | | | [place] [address] | + + + | Home Phone | | + + + | Preferred Language | Unknown | + + + | Marital Status | | + + + | Muslim Affiliation | Unknown | + + + [...] + | Johnson Flowers | ECON | [address] | | | | | [place] | | | | | [address] | | + + + + + Care Team Providers + +------+ + | Care Rotary Helper Name | Role | Phone | [...] Provider Unknown | | | | | [place], [place] | [phone] | | | | | [address] | | | | | | [phone] | | | +--------+ + + + [...] | | | | | | [place] [address] | | | | | | [phone] | | | | | | | | +--------+---------+ + + + documented as of this encounter Visit Diagnoses Not on filedocumented in this encounter"
--- OUTSIDE RECORDS SUMMARY | ~2019-10-01 | XMS | Encounter Summary ---
Demographics + + + | Address | [address] | | | [place] [address] | + + + | Home Phone | | + + + | Preferred Language | Unknown | + + + | Marital Status | | + + + | Baptist Affiliation | Unknown | + + + | Race | Unknown | + + + | Ethnic Group | Unknown | + + + Author + + + | Author | [facility] | | | and [place] | + + + | Organization | [facility] | | | and [place] | + + + | Address | Unknown | + + + | Phone | Unavailable | + + + Support + + + + + | Name | Relationship | Address | Phone | + + + + + | Johnson Flowers | ECON | [address] | | | | | [place] | | | | | [address] | | + + + + + Care Team Providers + +------+ + | Care Him Specialists Name | Role | Phone | + +------+ + | Zahra Quevedo | PCP | | + +------+ + Encounter Details +--------+ + + + + | Date | Type | Department | Care Team | Description | +--------+ + + + + | 08/25/ | Orders Only | [facility] | Radha Sanchez | | | 2019 | | CARDIOLOGY [place] | [address] | | | | | [address] | [address] | | | | | [address] | [place] [address] | | | | | [place], [place] | [phone] | | | | | [address] | | | | | | [phone] | | | +--------+ + + + [...] | | | | | | [place] [address] | | | | | | [phone] | | | | | | | | +--------+---------+ + + + documented as of this encounter Visit Diagnoses Not on filedocumented in this encounter"
[~2019-10-01 02:13] MED LIST changes: +FUROSEMIDE20 MG PO
--- OUTSIDE RECORDS SUMMARY | 2019-10-01 02:16 | XMS ---
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 Waxer Tender Events No recent Security Events currently on file CRITERIA MET - Group Notification - PDMP - [facility] - 2 Visits in 30 Days CARE PROVIDERS BRETT DALTON Physician Dexigraph Operator 01/22/2018-Current PHONE: [phone] [place] has no Care Guidelines for this patient. Sheila VISIT COUNT (12 MO[address] [facility] TOTAL 2 NOTE: Visits indicate total known visits. ED/C VISIT TRACKING (12 MO.) 10/01/2019 02:14 [facility] [place] TYPE: Emergency COMPLAINT: - PANIC ATTACK 09/10/2019 14:04 MAL[facility] [place] TYPE: Emergency COMPLAINT: - SOB DIAGNOSES: - Anxiety disorder, unspecified - Shortness of breath - Hypertensive heart disease with heart failure - Other buttermaker continuous churn (current) drug therapy - Heart failure, unspecified - Pure hypercholesterolemia, unspecified INPATIENT VISIT TRACKING (12 MO.) No inpatient visits to display in this time frame [email or web address]
== END 2019-10-01 02:54 | disposition home or self-care (01) ==
LOC: ED 02:13
DX: F41.0 Panic disorder [episodic paroxysmal anxiety] (principal); I10 Essential (primary) hypertension; E78.00 Pure hypercholesterolemia, unspecified; F41.9 Anxiety disorder, unspecified; Z79.899 Other long term (current) drug therapy
CPT/HCPCS: 99283

== ENCOUNTER 2019-10-04 16:21 | Inpatient (IN) | payer MEDICARE, OTHER ==
[~2019-10-04] VITALS: Ht 177.8 cm; Wt 105.7 kg
--- OUTSIDE RECORDS SUMMARY | ~2019-10-04 | XMS | Encounter Summary ---
Demographics + + + | Address | [address] | | | [place] [address] | + + + | Home Phone | | + + + | Preferred Language | Unknown | + + + | Marital Status | | + + + | Moravian Affiliation | Unknown | + + + | Race | Unknown | + + + | Ethnic Group | Unknown | + + + Author + + + | Author | [facility] | | | and [place] | + + + | Organization | [facility] | | | and [place] | + + + | Address | Unknown | + + + | Phone | Unavailable | + + + Support + + + + + | Name | Relationship | Address | Phone | + + + + + | Johnson Flowers | ECON | [address] | | | | | [place] | | | | | [address] | | + + + + + Care Team Providers + +------+ + | Care Oyster Culler Name | Role | Phone | + +------+ + | Zahra Quevedo | PCP | | + +------+ + Encounter Details +--------+ + + + + | Date | Type | Department | Care Team | Description | +--------+ + + + + | 08/25/ | Orders Only | [facility] | Radha Sanchez | | | 2019 | | CARDIOLOGY [place] | [address] | | | | | [address] | [address] | | | | | [address] | [place] [address] | | | | | [place], [place] | [phone] | | | | | [address] | | | | | | [phone] | | | +--------+ + + + + Social History + +-------+ +--------+------+ | Tobacco Use | Types | Packs/Day | Years | Date | | | | | Used | | + +-------+ +--------+------+ | Never Smoker | | | | | + +-------+ +--------+------+ + +---+---+---+ | Smokeless Tobacco: | | | | | Never Used | | | | + +---+---+---+ + + + | Sex Assigned at | Date Recorded | | | | + + + | Not on file | | + + + + + + + | Job Start Date | Occupation | Industry | + + + + | Not on file | Not on file | Not on file | + + + + + + + + | Travel History | Travel Start | Travel End | + + + + + + | No recent travel history available. | + + documented as of this encounter Plan of Treatment +--------+---------+ + + + | Date | Type | Specialty | Care Team | Description | +--------+---------+ + + + | 12/30/ | Office | Cardiology | Adalberto Leggett, | | | 2019 | Visit | | MD [address] | | | | | | [place], | | | | | | [place] [address] | | | | | | [phone] | | | | | | | | +--------+---------+ + + + documented as of this encounter Visit Diagnoses Not on filedocumented in this encounter"
--- OUTSIDE RECORDS SUMMARY | ~2019-10-04 | XMS | Encounter Summary ---
Demographics + + + | Address | [address] | | | [place] [address] | + + + | Home Phone | | + + + | Preferred Language | Unknown | + + + | Marital Status | | + + + | Mandaen Affiliation | Unknown | + + + | Race | Unknown | + + + | Ethnic Group | Unknown | + + + Author + + + | Author | [facility] | | | and [place] | + + + | Organization | [facility] | | | and [place] | + + + | Address | Unknown | + + + | Phone | Unavailable | + + + Support + + + + + | Name | Relationship | Address | Phone | + + + + + | Johnson Flowers | ECON | [address] | | | | | [place] | | | | | [address] | | + + + + + Care Team Providers + +------+ + | Care Clinical Informatics Director Name | Role | Phone | + +------+ + | Zahra Quevedo | PCP | | + +------+ + Reason for Visit +---------+ + | Reason | Comments | +---------+ + | Testing | | +---------+ + Encounter Details +--------+ + + + + | Date | Type | Department | Care Team | Description | +--------+ + + + + | 08/14/ | Telephone | [facility] | Radha Sanchez | Testing | | 2020 | | CARDIOLOGY [place] | [address] | | | | | [address] [facility] | [address] | | | | | [address] | [place] [address] | | | | | [place] | [phone] | | | | | [address] | | | | | | [phone] | | | +--------+ + + + [...] | | | | | | [place] [address] | | | | | | [phone] | | | | | | | | +--------+---------+ + + + documented as of this encounter Visit Diagnoses Not on filedocumented in this encounter"
--- OUTSIDE RECORDS SUMMARY | ~2019-10-04 | XMS | Encounter Summary ---
Demographics + + + | Address | [address] | | | [place] [address] | + + + | Home Phone | | + + + | Preferred Language | Unknown | + + + | Marital Status | | + + + | Confucianism Affiliation | Unknown | + + + | Race | Unknown | + + + | Ethnic Group | Unknown | + + + Author + + + | Author | [facility] | | | and [place] | + + + | Organization | [facility] | | | and [place] | + + + | Address | Unknown | + + + | Phone | Unavailable | + + + Support + + + + + | Name | Relationship | Address | Phone | + + + + + | Johnson Flowers | ECON | [address] | | | | | [place] | | | | | [address] | | + + + + + Care Team Providers + +------+ + | Care [place] Name | Role | Phone | + +------+ + | Zahra Quevedo | PCP | | + +------+ + Encounter Details +--------+ + + + + | Date | Type | Department | Care Team | Description | +--------+ + + + + | 04/01/ | Orders Only | [facility] | Conversion | | | 2019 | | CONVERSION [address] | Transaction, | | | | | [address] | Provider Unknown | | | | | [place], [place] | [phone] | | | | | [address] | | | | | | [phone] | | | +--------+ + + + + Social History + +-------+ +--------+------+ | Tobacco Use | Types | Packs/Day | Years | Date | | | | | Used | | + +-------+ +--------+------+ | Never Smoker | | | | | + +-------+ +--------+------+ + + + | Sex Assigned at [...] | | 2019 | Visit | | [address] | | | | | | [place], | | | | | | [place] [address] | | | | | | [phone] | | | | | | | | +--------+---------+ + + + documented as of this encounter Visit Diagnoses Not on filedocumented in this encounter"
--- OUTSIDE RECORDS SUMMARY | ~2019-10-04 | XMS | Encounter Summary ---
Demographics + + + | Address | [address] | | | [place] [address] | + + + | Home Phone | | + + + | Preferred Language | Unknown | + + + | Marital Status | | + + + | Druze Affiliation | Unknown | + + + | Race | Unknown | + + + | Ethnic Group | Unknown | + + + Author + + + | Author | [facility] | | | and [place] | + + + | Organization | [facility] | | | and [place] | + + + | Address | Unknown | + + + | Phone | Unavailable | + + + Support + + + + + | Name | Relationship | Address | Phone | + + + + + | Johnson Flowers | ECON | [address] | | | | | [place] | | | | | [address] | | + + + + + Care Team Providers + +------+ + | Care Geoscience Technician Name | Role | Phone | + +------+ + | Zahra Quevedo | PCP | | + +------+ + Reason for Visit + + + | Reason | Comments | + + + | Medication Question | | + + + Encounter Details +--------+ + + + + | Date | Type | Department | Care Team | Description | +--------+ + + + + | 03/25/ | Telephone | [facility] | Radha Sanchez | Medication Question | | 2019 | | CARDIOLOGY [facility] | [address] | | | | | [address] | [address] | | | | | [address] | [place] [address] | | | | | [place] | [phone] | | | | | [address] | | | | | | [phone] | | | +--------+ + + + [...] | | | | | | [place] [address] | | | | | | [phone] | | | | | | | | +--------+---------+ + + + documented as of this encounter Visit Diagnoses Not on filedocumented in this encounter"
--- OUTSIDE RECORDS SUMMARY | ~2019-10-04 | XMS | Encounter Summary ---
Demographics + + + | Address | [address] | | | [place] [address] | + + + | Home Phone | | + + + | Preferred Language | Unknown | + + + | Marital Status | | + + + | Tenriism Affiliation | Unknown | + + + | Race | Unknown | + + + | Ethnic Group | Unknown | + + + Author + + + | Author | [facility] | | | and [place] | + + + | Organization | [facility] | | | and [place] | + + + | Address | Unknown | + + + | Phone | Unavailable | + + + Support + + + + + | Name | Relationship | Address | Phone | + + + + + | Johnson Flowers | ECON | [address] | | | | | [place] | | | | | [address] | | + + + + + Care Team Providers + +------+ + | Care Pesticide Applicator Name | Role | Phone | + +------+ + | Zahra Quevedo | PCP | | + +------+ + Encounter Details +--------+ + + + + | Date | Type | Department | Care Team | Description | +--------+ + + + + | 02/14/ | Orders Only | [facility] | Zahra Quevedo, | | | 2017 | | [address] | [address] | | | | | [address] | [place] | | | | | [place], [place] | [address] | | | | | [address] | [phone] | | | | | [phone] | | | +--------+ + + + + Social History + +-------+ +--------+------+ | Tobacco Use | Types | Packs/Day | Years | Date | | | | | Used | | + +-------+ +--------+------+ | Never Assessed | | | | | + +-------+ [...] | 12/30/ | Office | Cardiology | Adolph Leggett, | | | 2019 | Visit | | [address] | | | | | | [place], | | | | | | [place] [address] | | | | | | [phone] | | | | | | | | +--------+---------+ + + + documented as of this encounter Procedures + +--------+ + + + | Procedure Name | Priori | Date/Time | Associated Diagnosis | Comments | | | ty | | | | + +--------+ + + + | ECHO INTERPRETATION | Routin | 02/14/2018 | | Results for this | | OF OUTSIDE FILMS | e | 3:47 PM | | procedure are in the | | | | PDT | | results section. | + +--------+ + + + documented in this encounter Results ECHO Interpretation of Outside Films (02/14/2018 3:47 PM PDT) + + | Specimen | + + | | + + + + + | Impressions | Performed At | + + + | 1. Left ventricular systolic function is hyperdynamic with an | | | estimated EF of >70%. 2. The right ventricle is normal in size and | | | function. 3. Moderate aortic stenosis with peak/mean pressure | | | gradient of 30.16mmHg / 19.11mmHg, the aortic valve area by continuity | | | equation is 1.2cm . | | + + + + + + | Narrative | Performed At | + + + | Patient Name: Javi Flowers Date of : 1945 | | | Performing Physician: ADOLPH LEGGETT MD | | | | | | INDICATIONS Atrial fibrillation CONCLUSIONS | | | 1. Left ventricular systolic function is hyperdynamic | | | with an estimated EF of >70%. 2. The right ventricle is normal in | | | size and function. 3. Moderate aortic stenosis with peak/mean | | | pressure gradient of 30.16mmHg / 19.11mmHg, the aortic valve area by | | | continuity equation is 1.2cm . FINDINGS -------- ECG | | | rhythm: Sinus rhythm. Study: A 2-dimensional transthoracic | | | echocardiogram with m-mode, spectral and color flow Doppler was | | | perfomed. Study: This was a technically difficult study with | | | suboptimal views. Left Ventricle: Left ventricular systolic function | | | is hyperdynamic with an estimated EF of >70%. Left Ventricle: There | | | is mild concentric left ventricular hypertrophy. Left Ventricle: The | | | diastolic filling pattern is normal for the age of the patient. Left | | | Ventricle: Grossly normal LV size and systolic function. Unable to | | | comment on regional wall motion. Right Ventricle: The RV was not well | | | visualized, but on limited views, it appears to be normal in size and | | | function. Left Atrium: The left atrium is normal in size. Right | | | Atrium: The right atrium is normal in size. Aortic Valve: Aortic | | | valve is trileaflet and is mildly thickened. Leaflet separation is | | | restricted. Aortic Valve: The aortic valve is mildly calcified. | | | Aortic Valve: There is no evidence of aortic regurgitation. Aortic | | | Valve: Moderate aortic stenosis with peak/mean pressure gradient of | | | 30.16mmHg / 19.11mmHg, the aortic valve area by continuity equation is | | | 1.2cm . Aortic Valve: The maximum velocity across the aortic | | | valve is 2.74m/s Mitral Valve: No mitral regurgitation. Mitral | | | Valve: No evidence of MVP. Mitral Valve: Mild mitral annular | | | calcification present. Tricuspid Valve: The tricuspid valve was not | | | well visualized. Tricuspid Valve: Pulmonary artery systolic pressure | | | could not be assessed due to the absence of adequate TR jet. Pulmonic | | | Valve: The pulmonic valve was not well visualized. Pulmonic Valve: | | | Trace/mild pulmonic regurgitation. Pericardium: There is no | | | pericardial effusion. IVC/Hepatic Veins: The IVC is normal size | | | (1.5-2.5cm) and collapses >50% with sniff, consistent with central | | | venous pressures of 5-10mmHg. Aorta: The aortic root, ascending aorta | | | and aortic arch are normal. Mass: No mass visualized Thrombus: No | | | clot visualized Thrombus: No vegetation visualized. Septum: No ASD | | | observed. Septum: No VSD observed. MEASUREMENTS | | | Ao Diam: 3.[address] junct: 2.98 cm IVC: 1.57 cm LA | | | Diam: 4.69 cm LA Major: 5.19 cm EDV(Teich): 79.32 ml IVSd: | | | 1.19 cm LVIDd: 4.21 cm LVPWd: 1.32 cm LVOT Area: 3.89 | | | cm2 LVOT Diam: 2.22 cm %FS: 28.88 % EF(Teich): 55.91 % | | | ESV(Teich): 34.96 ml LVIDs: 2.99 cm SV(Teich): 44.35 ml RA | | | Major: 5.01 cm RV Major: 8.41 cm RVIDd: 2.93 cm TV Zenaida | | | Diam: 3.07 cm Ao Diam SVals: 3.59 cm LVEF MOD A2C: 59.25 % | | | SV MOD A2C: 50.52 ml LVEF MOD A4C: 56.85 % SV MOD A4C: | | | 45.71 ml EF Biplane: 57.04 % LVEDV MOD BP: 82.87 ml LVESV MOD | | | BP: 35.59 ml LVEDV MOD A2C: 85.26 ml LVLd A2C: 9.02 cm | | | LVEDV MOD A4C: 80.40 ml LVLd A4C: 8.91 cm LVESV MOD A2C: | | | 34.74 ml LVLs A2C: 7.52 cm LVESV MOD A4C: 34.69 ml LVLs A4C: | | | 7.98 cm LAESV(A-L): 51.23 ml LAESV Index (A-L): 22.56 ml/m2 | | | LAAs A2C: 17.44 cm2 LAESV A-L A2C: 48.26 ml LALs A2C: | | | 5.35 cm LAAs A4C: 18.51 cm2 LAESV A-L A4C: 53.52 ml LALs A4C: | | | 5.43 cm RAAs: 14.80 cm2 RAESV A-L: 35.75 ml RAESV MOD: | | | 35.14 ml RALs: 5.20 cm TAPSE: 2.96 cm AV maxP.16 | | | mmHg AV meanP.10 mmHg AV Vmax: 2.74 m/s AV Vmean: | | | 2.11 m/s AV VTI: 66.30 cm CHANTEL Vmax: 1.13 cm2 CHANTEL (VTI): | | | 1.24 cm2 LVOT maxP.55 mmHg LVOT meanP.26 mmHg LVSI | | | Dopp: 36.38 ml/m2 LVSV Dopp: 82.59 ml LVOT Vmax: 0.79 m/s | | | LVOT Vmean: 0.52 m/s LVOT VTI: 21.23 cm MV A Rodrigue: 1.00 m/s | | | MV Dec Navarro: 2.61 m/s2 MV DecT: 274.46 ms MV E Rodrigue: 0.71 | | | m/s MV E/A Ratio: 0.71 MV PHT: 79.59 ms MVA By PHT: 2.76 | | | cm2 Septal e': 0.04 m/s Septal E/e': 16.10 Lateral e': | | | 0.07 m/s Lateral E/e': 9.86 Systems Test Analyst: NATALIE Authenticated by: | | | ADOLPH LEGGETT MD Report Date/Time: 02-14-2018 18:15:1 | | + + + + + | Procedure Note | + + | Ford Fonseca Conversion - 01/17/2019 2:41 PM PDT Patient Name: Elizabeth Flowers of | | : 1945 Performing Physician: ADOLPH LEGGETT, | | INDICATIONS A | | trial fibrillation CONCLUSIONS 1. Left ventricular systolic function is | | hyperdynamic with an estimated EF of >70%.2. The right ventricle is normal in size and | | function.3. Moderate aortic stenosis with peak/mean pressure gradient of 30.16mmHg / | | 19.11mmHg, the aortic valve area by continuity equation is 1.2cm . | | FINDINGS--------ECG rhythm: Sinus rhythm.Study: A 2-dimensional transthoracic | | echocardiogram with m-mode, spectral and color flow Doppler was perfomed.Study: This was | | a technically difficult study with suboptimal views.Left Ventricle: Left ventricular | | systolic function is hyperdynamic with an estimated EF of >70%.Left Ventricle: There is | | mild concentric left ventricular hypertrophy.Left Ventricle: The diastolic filling | | pattern is normal for the age of the patient.Left Ventricle: Grossly normal LV size and | | systolic function. Unable to comment on regional wall motion.Right Ventricle: The RV was | | not well visualized, but on limited views, it appears to be normal in size and | | function.Left Atrium: The left atrium is normal in size.Right Atrium: The right atrium | | is normal in size.Aortic Valve: Aortic valve is trileaflet and is mildly thickened. | | Leaflet separation is restricted.Aortic Valve: The aortic valve is mildly | | calcified.Aortic Valve: There is no evidence of aortic regurgitation.Aortic Valve: | | Moderate aortic stenosis with peak/mean pressure gradient of 30.16mmHg / 19.11mmHg, the | | aortic valve area by continuity equation is 1.2cm .Aortic Valve: The maximum | | velocity across the aortic valve is 2.74m/sMitral Valve: No mitral regurgitation.Mitral | | Valve: No evidence of MVP.Mitral Valve: Mild mitral annular calcification | | present.Tricuspid Valve: The tricuspid valve was not well visualized.Tricuspid Valve: | | Pulmonary artery systolic pressure could not be assessed due to the absence of adequate | | TR jet.Pulmonic Valve: The pulmonic valve was not well visualized.Pulmonic Valve: | | Trace/mild pulmonic regurgitation.Pericardium: There is no pericardial | | effusion.IVC/Hepatic Veins: The IVC is normal size (1.5-2.5cm) and collapses >50% with | | sniff, consistent with central venous pressures of 5-10mmHg.Aorta: The aortic root, | | ascending aorta and aortic arch are normal.Mass: No mass visualizedThrombus: No clot | | visualizedThrombus: No vegetation visualized.Septum: No ASD observed.Septum: No VSD | | observed. MEASUREMENTS Ao Diam: 3.[address] junct: 2.98 cmIVC: 1.57 | | cmLA Diam: 4.69 cmLA Major: 5.19 cmEDV(Teich): 79.32 mlIVSd: 1.19 cmLVIDd: | | 4.21 cmLVPWd: 1.32 cmLVOT Area: 3.89 rt0CLLP Diam: 2.22 cm%FS: 28.88 %EF(Teich): | | 55.91 %ESV(Teich): 34.96 mlLVIDs: 2.99 cmSV(Teich): 44.35 mlRA Major: 5.01 | | cmRV Major: 8.41 cmRVIDd: 2.93 cmTV Zenaida Diam: 3.07 cmAo Diam SVals: 3.59 cmLVEF | | MOD A2C: 59.25 %SV MOD A2C: 50.52 mlLVEF MOD A4C: 56.85 %SV MOD A4C: 45.71 mlEF | | Biplane: 57.04 %LVEDV MOD BP: 82.87 mlLVESV MOD BP: 35.59 mlLVEDV MOD A2C: 85.26 | | mlLVLd A2C: 9.02 cmLVEDV MOD A4C: 80.40 mlLVLd A4C: 8.91 cmLVESV MOD A2C: 34.74 | | mlLVLs A2C: 7.52 cmLVESV MOD A4C: 34.69 mlLVLs A4C: 7.98 cmLAESV(A-L): 51.23 | | mlLAESV Index (A-L): 22.56 ml/m2LAAs A2C: 17.44 [id number] A-L A2C: 48.26 mlLALs | | A2C: 5.35 cmLAAs A4C: 18.51 [id number] A-L A4C: 53.52 mlLALs A4C: 5.43 cmRAAs: | | 14.80 [id number] A-L: 35.75 mlRAESV MOD: 35.14 mlRALs: 5.20 cmTAPSE: 2.96 cmAV | | maxP.16 mmHgAV meanP.10 mmHgAV Vmax: 2.74 m/Nicanor Vmean: 2.11 m/Nicanor VTI: | | 66.30 cmAVA Vmax: 1.13 cm2AVA (VTI): 1.24 [id number] maxP.55 mmHgLVOT meanPG: | | 1.26 mmHgLVSI Dopp: 36.38 ml/m2LVSV Dopp: 82.59 mlLVOT Vmax: 0.79 m/sLVOT Vmean: | | 0.52 m/sLVOT VTI: 21.23 cmMV A Rodrigue: 1.00 m/sMV Dec Navarro: 2.61 m/s2MV DecT: | | 274.46 msMV E Rodrigue: 0.71 m/sMV E/A Ratio: 0.71MV PHT: 79.59 msMVA By PHT: 2.76 | | ab1Mwurby e': 0.04 m/sSeptal E/e': 16.10Lateral e': 0.07 m/sLateral E/e': 9.86 | | Systems Test Analyst: DHAuthenticated by: Vane CORDOVA Date/Time: 02-14-2018 18:15:1 | | IMPRESSION: 1. Left ventricular systolic function is hyperdynamic with an estimated EF | | of >70%.2. The right ventricle is normal in size and function.3. Moderate aortic | | stenosis with peak/mean pressure gradient of 30.16mmHg / 19.11mmHg, the aortic valve | | area by continuity equation is 1.2cm . | |Ao st junct: 2.98 cm | |IVC: 1.57 cm | |LA Diam: 4.69 cm | |LA Major: 5.19 cm | |EDV(Teich): 79.32 ml | |IVSd: 1.19 cm | |LVIDd: 4.21 cm | |LVPWd: 1.32 cm | |LVOT Area: 3.89 cm2 | |LVOT Diam: 2.22 cm | |%FS: 28.88 % | |EF(Teich): 55.91 % | |ESV(Teich): 34.96 ml | |LVIDs: 2.99 cm | |SV(Teich): 44.35 ml | |RA Major: 5.01 cm | |RV Major: 8.41 cm | |RVIDd: 2.93 cm | |TV Zenaida Diam: 3.07 cm | |Ao Diam SVals: 3.59 cm | |LVEF MOD A2C: 59.25 % | |SV MOD A2C: 50.52 ml | |LVEF MOD A4C: 56.85 % | |SV MOD A4C: 45.71 ml | |EF Biplane: 57.04 % | |LVEDV MOD BP: 82.87 ml | |LVESV MOD BP: 35.59 ml | |LVEDV MOD A2C: 85.26 ml | |LVLd A2C: 9.02 cm | |LVEDV MOD A4C: 80.40 ml | |LVLd A4C: 8.91 cm | |LVESV MOD A2C: 34.74 ml | |LVLs A2C: 7.52 cm | |LVESV MOD A4C: 34.69 ml | |LVLs A4C: 7.98 cm | |LAESV(A-L): 51.23 ml | |LAESV Index (A-L): 22.56 ml/m2 | |LAAs A2C: 17.44 cm2 | |LAESV A-L A2C: 48.26 ml | |LALs A2C: 5.35 cm | |LAAs A4C: 18.51 cm2 | |LAESV A-L A4C: 53.52 ml | |LALs A4C: 5.43 cm | |RAAs: 14.80 cm2 | |RAESV A-L: 35.75 ml | |RAESV MOD: 35.14 ml | |RALs: 5.20 cm | |TAPSE: 2.96 cm | |AV maxP.16 mmHg | |AV meanP.10 mmHg | |AV Vmax: 2.74 m/s | |AV Vmean: 2.11 m/s | |AV VTI: 66.30 cm | |CHANTEL Vmax: 1.13 cm2 | |CHANTEL (VTI): 1.24 cm2 | |LVOT maxP.55 mmHg | |LVOT meanP.26 mmHg | |LVSI Dopp: 36.38 ml/m2 | |LVSV Dopp: 82.59 ml | |LVOT Vmax: 0.79 m/s | |LVOT Vmean: 0.52 m/s | |LVOT VTI: 21.23 cm | |MV A Rodrigue: 1.00 m/s | |MV Dec Navarro: 2.61 m/s2 | |MV DecT: 274.46 ms | |MV E Rodrigue: 0.71 m/s | |MV E/A Ratio: 0.71 | |MV PHT: 79.59 ms | |MVA By PHT: 2.76 cm2 | |Septal e': 0.04 m/s | |Septal E/e': 16.10 | |Lateral e': 0.07 m/s | |Lateral E/e': 9.86 | | | |Systems Test Analyst: DH | |Authenticated by: ADOLPH LEGGETT MD | |Report Date/Time: 02-14-2018 18:15:1 | | | |IMPRESSION: | |1. Left ventricular systolic function is hyperdynamic with an estimated EF of >70%. | |2. The right ventricle is normal in size and function. | |3. Moderate aortic stenosis with peak/mean pressure gradient of 30.16mmHg / 19.11mmHg, the aortic valve area by continuity equation is 1.2cm . | + + documented in this encounter Visit Diagnoses Not on filedocumented in this encounter"
--- OUTSIDE RECORDS SUMMARY | ~2019-10-04 | XMS | Clinical Summary ---
Demographics + + + | Address | [address] | | | [place] [address] | + + + | Home Phone | | + + + | Preferred Language | Unknown | + + + | Marital Status | | + + + | Adventist Affiliation | Unknown | + + + | Race | Unknown | + + + | Ethnic Group | Unknown | + + + Author + + + | Author | [facility] (Historical as of | | | 01-12-19) | + + + | Organization | [facility] (Historical as of | | | 01-12-19) | + + + | Address | Unknown | + + + | Phone | Unavailable | + + + Support + + + + + | Name | Relationship | Address | Phone | + + + + + | Johnson Roberts | ECON | [address] | | | | | [place] | | | | | [address] | | + + + + + Care Team Providers + +------+ + | Care Compress Trucker Name | Role | Phone | + +------+ + | Zahra Quevedo PA-C | PP | | + +------+ + Allergies No Known Allergies Current Medications + + +-------+---------+------+------+-------+ | Prescription | Sig. | Disp. | Refills | Star | End | Statu | | | | | | t | Date | s | | | | | | Date | | | + + +-------+---------+------+------+-------+ | escitalopram | Take 10 mg by mouth | | | | | Activ | | (LEXAPRO) 10 MG | nightly. | | | | | e | | tablet | | | | | | | + + +-------+---------+------+------+-------+ | metoprolol | Take 50 mg by mouth | | | | | Activ | | (TOPROL-XL) 50 MG 24 | daily. | | | | | e | | hr tablet | | | | | | | + + +-------+---------+------+------+-------+ | apixaban (ELIQUIS) | Take 5 mg by mouth 2 | | | | | Activ | | 5 MG tablet | (two) times daily. | | | | | e | + + +-------+---------+------+------+-------+ | | Take 2 tablets by | | | | | Activ | | HYDROcodone-acetamin | mouth 5 (five) times | | | | | e | | ophen (NORCO) 5-325 | daily. | | | | | | | MG per tablet | | | | | | | + + +-------+---------+------+------+-------+ | traZODone | Take 50 mg by mouth | | | | | Activ | | (DESYREL) 50 MG | nightly as needed | | | | | e | | tabletIndications: | for Sleep. | | | | | | | Insomnia, takes once | | | | | | | | a week | | | | | | | + + +-------+---------+------+------+-------+ Active Problems + + + | Problem | Noted Date | + + + | Pedal edema | 08/27/2018 | + + + | Essential hypertension | 08/27/2018 | + + + | Mixed hyperlipidemia | 08/27/2018 | + + + | Anticoagulated by anticoagulation treatment | 08/27/2018 | + + + + + | Overview: Eliquis 5 mg [id number] VASC score 3 ( age, HTN) | | HAS BLED 2 ( age HTN) | + + + +---+ | Atrial fibrillation (HCC) | | + +---+ + + | Overview: and Paroxysmal Atrial Flutter, CHADS2 VASc 2, on | | Eliquis | + + + +---+ | Aortic stenosis, moderate | | + +---+ Family History + + +------+ + | Medical History | Relation | Name | Comments | + + +------+ + | Alcohol abuse | Father | | | + + +------+ + | Rheumatic Fever | Father | | | + + +------+ + | Dementia | Mother | | | + + +------+ + + +------+ + + | Relation | Name | Status | Comments | + +------+ + + | Father | | | unknown cause of | | | | (Age | | | | | 55) | | + +------+ + + | Mother | | | old age | | | | (Age | | | | | 92) | | + +------+ + + Social History + +-------+ +--------+------+ | Tobacco Use | Types | Packs/Day | Years | Date | | | | | Used | | + +-------+ +--------+------+ | Never Smoker | | | | | + +-------+ +--------+------+ + +---+---+---+ | Smokeless Tobacco: | | | | | Never Used | | | | + +---+---+---+ + + +---------+ + | Alcohol Use | Drinks/We | oz/Week | Comments | | | ek | | | + + +---------+ + | No | | | NOT SINCE 1988 | + + +---------+ + + + + | Sex Assigned at | Date Recorded | | | | + + + | Not on file | | + + + Last Filed Vital Signs + + + + | Vital Sign | Reading | Time Taken | + + + + | Blood Pressure | 150/80 | 08/27/2018 1:43 PM PDT | + + + + | Pulse | 61 | 08/27/2018 1:43 PM PDT | + + + + | Temperature | - | - | + + + + | Respiratory Rate | 18 | 08/27/2018 1:43 PM PDT | + + + + | Oxygen Saturation | 96% | 08/27/2018 1:43 PM PDT | + + + + | Inhaled Oxygen | - | - | | Concentration | | | + + + + | Weight | 111.5 kg (245 lb | 08/27/2018 1:43 PM PDT | | | 14.4 oz) | | + + + + | Height | 175.3 cm (5' 9") | 08/27/2018 1:43 PM PDT | + + + + | Body Mass Index | 36.31 | 08/27/2018 1:43 PM PDT | + + + + Plan of Treatment + + + + + | Health Maintenance | Due Date | Last Done | Comments | + + + + + | Vaccine: | | | | | Dtap/Tdap/Td (1 - | 3 | | | | Tdap) | | | | + + + + + | Vaccine: Zoster (1 | | | | | of 2) | 4 | | | + + + + + | Vaccine: | | | | | Pneumococcal 65+ | 9 | | | | Low/Medium Risk (1 | | | | | of 2 - PCV13) | | | | + + + + + | Vaccine: Influenza | | | | | (Season Ended) | 0 | | | + + + + + Results Not on filefrom Last 3 Months Insurance + +--------+ +--------+-------+ + | Payer | Benefi | Subscriber | Type | Phone | Address | | | t Plan | ID | | | | | | / | | | | | | | Group | | | | | + +--------+ +--------+-------+ + | [place] | [place] - | [id number] | Medica | | | | | MODA | | re | | | | | | | | | | | | | | | | | | | | | | | | | | | | | | | | | | | | | | | | [place] - | | | | | | | MODA | | | | | + +--------+ +--------+-------+ + | MEDICAID | [place] | [id number] | | | [address] | | | [place] | | | | [place] | | | [place] | | | | [phone] | | | [employer] | | | | | + +--------+ +--------+-------+ + + +--------+ +--------+ + + | Guarantor Name | Accoun | Relation to | Date | Phone | Billing Address | | | t Type | Patient | of | | | | | | | | | | + +--------+ +--------+ + + | JAVI ROBERTS | Person | Self [birth year] | Home: | [address] | | | [place] | | 1946 | [phone] [place] | | | [place] | | | [phone] | [address] | + +--------+ +--------+ + +
--- OUTSIDE RECORDS SUMMARY | ~2019-10-04 | XMS | Encounter Summary ---
Demographics + + + | Address | [address] | | | [place] [address] | + + + | Home Phone | | + + + | Preferred Language | Unknown | + + + | Marital Status | | + + + | Sabianist Affiliation | Unknown | + + + | Race | Unknown | + + + | Ethnic Group | Unknown | + + + Author + + + | Author | [facility] | | | and [place] | + + + | Organization | [facility] | | | and [place] | + + + | Address | Unknown | + + + | Phone | Unavailable | + + + Support + + + + + | Name | Relationship | Address | Phone | + + + + + | Johnson Flowers | ECON | [address] | | | | | [place] | | | | | [address] | | + + + + + Care Team Providers + +------+ + | Care Diesel Dragline Operator Name | Role | Phone | + +------+ + | Zahra Quevedo | PCP | | + +------+ + Encounter Details +--------+ + + + + | Date | Type | Department | Care Team | Description | +--------+ + + + + | 08/25/ | Orders Only | [facility] | Radha Sanchez | | | 2019 | | CARDIOLOGY [facility] | [address] | | | | | [address] | [address] | | | | | [address] | [place] [address] | | | | | [place], [place] | [phone] | | | | | [address] | | | | | | [phone] | | | +--------+ + + + [...] | | | | | | [place] [address] | | | | | | [phone] | | | | | | | | +--------+---------+ + + + documented as of this encounter Visit Diagnoses Not on filedocumented in this encounter"
--- OUTSIDE RECORDS SUMMARY | ~2019-10-04 | XMS | Encounter Summary ---
Demographics + + + | Address | [address] | | | [place] [address] | + + + | Home Phone | | + + + | Preferred Language | Unknown | + + + | Marital Status | | + + + | Tenriism Affiliation | Unknown | + + + | Race | Unknown | + + + | Ethnic Group | Unknown | + + + Author + + + | Author | [facility] | | | and [place] | + + + | Organization | [facility] | | | and [place] | + + + | Address | Unknown | + + + | Phone | Unavailable | + + + Support + + + + + | Name | Relationship | Address | Phone | + + + + + | Johnson Flowers | ECON | [address] | | | | | [place] | | | | | [phone] | | + + + + + Care Team Providers + +------+ + | Care Professor Of Education Name | Role | Phone | + [...] | | | [address] | [place] [address] | | | | | [place] | [phone] | | | | | [address] | | | | | | [phone] | | | +--------+ + + + [...] | | | | | | [place] [id number] | | | | | | [phone] | | | | | | | | +--------+---------+ + + + documented as of this encounter Visit Diagnoses Not on filedocumented in this encounter"
--- OUTSIDE RECORDS SUMMARY | ~2019-10-04 | XMS | Encounter Summary ---
Demographics + + + | Address | [address] | | | [place] [address] | + + + | Home Phone | | + + + | Preferred Language | Unknown | + + + | Marital Status | | + + + | Worship Affiliation | Unknown | + + + | Race | Unknown | + + + | Ethnic Group | Unknown | + + + Author + + + | Author | [facility] | | | and [place] | + + + | Organization | [facility] | | | and [place] | + + + | Address | Unknown | + + + | Phone | Unavailable | + + + Support + + + + + | Name | Relationship | Address | Phone | + + + + + | Johnson Flowers | ECON | [address] | | | | | [place] | | | | | [address] | | + + + + + Care Team Providers + +------+ + | Care Machine Ii Coremaker Name | Role | Phone | + [...] | +--------+ + + + + | 03/26/ | Telephone | [facility] | Radha Sanchez | Medication Question | | 2018 | | CARDIOLOGY [place] | [address] | | | | | [address] | [address] | | | | | [address] [place] [address] | [place] [address] | | | | | [address] | [phone] | | | | | [phone] | | | +--------+ + + + [...] | | | | | | [place] [address] | | | | | | [phone] | | | | | | | | +--------+---------+ + + + documented as of this encounter Visit Diagnoses Not on filedocumented in this encounter"
--- OUTSIDE RECORDS SUMMARY | ~2019-10-04 | XMS | Encounter Summary ---
Demographics + + + | Address | [address] | | | [place] [address] | + + + | Home Phone | | + + + | Preferred Language | Unknown | + + + | Marital Status | | + + + | Congregational Affiliation | Unknown | + + + | Race | Unknown | + + + | Ethnic Group | Unknown | + + + Author + + + | Author | [facility] | | | and [place] | + + + | Organization | [facility] | | | and [place] | + + + | Address | Unknown | + + + | Phone | Unavailable | + + + Support + + + + + | Name | Relationship | Address | Phone | + + + + + | Johnson Flowers | ECON | [address] | | | | | [place] | | | | | [address] | | + + + + + Care Team Providers + +------+ + | Care Human Resources Temp Name | Role | Phone | + +------+ + | Zahra Quevedo | PCP | | + +------+ + Encounter Details +--------+ + + + + | Date | Type | Department | Care Team | Description | +--------+ + + + + | 09/25/ | Orders Only | [facility] | Conversion | | | 2018 | | CONVERSION DEP [address] | Transaction, | | | | | [address] | Provider Unknown | | | | | [place], [place] | [phone] | | | | | [address] | | | | | | [phone] | | | +--------+ + + + [...] Description | +--------+---------+ + + + | 08/04/ | Office | Cardiology | Adalberto Leggett, | | | 2019 | Visit | | [address] | | | | | | [place], | | | | | | [place] [address] | | | | | | [phone] | | | | | | | | +--------+---------+ + + + documented as of this encounter Visit Diagnoses Not on filedocumented in this encounter"
--- OUTSIDE RECORDS SUMMARY | ~2019-10-04 | XMS | Encounter Summary ---
Demographics + + + | Address | [address] | | | [place] [address] | + + + | Home Phone | | + + + | Preferred Language | Unknown | + + + | Marital Status | | + + + | Worship Affiliation | Unknown | + + + | Race | Unknown | + + + | Ethnic Group | Unknown | + + + Author + + + | Author | [facility] | | | and [place] | + + + | Organization | [facility] | | | and [place] | + + + | Address | Unknown | + + + | Phone | Unavailable | + + + Support + + + + + | Name | Relationship | Address | Phone | + + + + + | Johnson Flowers | ECON | [address] | | | | | [place] | | | | | [address] | | + + + + + Care Team Providers + +------+ + | Care Retail Client Solutions Analyst Name | Role | Phone | + +------+ + | Zahra Quevedo | PCP | | + +------+ + Encounter Details +--------+ + + + + | Date | Type | Department | Care Team | Description | +--------+ + + + + | 01/11/ | Orders Only | [facility] | Radha Sanchez | Paroxysmal atrial | | 2019 | | CARDIOLOGY [place] | [address] | fibrillation (HCC); | | | | [address] | [address] | Localized edema; | | | | [address] | [place] [address] | Essential (primary) | | | | [place] | [phone] | hypertension; Mixed | | | | [address] | | hyperlipidemia; Long | | | | [phone] | | term current use of | | | | | | anticoagulant; | | | | | | Encounter for | | | | | | screening for | | | | | | diseases of the | | | | | | blood and | | | | | | blood-forming organs | | | | | | and certain | | | | | | disorders involving | | | | | | the immune | | | | | | mechanism; Encounter | | | | | | for screening for | | | | | | other suspected | | | | | | endocrine disorder | +--------+ + + + + Social [...] | | | | | | [place] [address] | | | | | | [phone] | | | | | | | | +--------+---------+ + + + + +------+--------+ + + | Name | Type | Priori | Associated Diagnoses | Order Schedule | | | | ty | | | + +------+--------+ + + | CBC with | Lab | Routin | extermination inspector current | Expected: | | Differential | | e | use of anticoagulant | 08/27/2018, Expires: | | | | | Encounter for | 08/27/2019 | | | | | screening for | | | | | | diseases of the | | | | | | blood and | | | | | | blood-forming organs | | | | | | and certain | | | | | | disorders involving | | | | | | the immune mechanism | | + +------+--------+ + + | Thyroid Panel with | Lab | Routin | Paroxysmal atrial | Expected: | | TSH | | e | fibrillation (HCC) | 08/27/2018, Expires: | | | | | Encounter for | 08/27/2019 | | | | | screening for other | | | | | | suspected endocrine | | | | | | disorder | | + +------+--------+ + + documented as of this encounter Visit Diagnoses + + | Diagnosis | + + | Paroxysmal atrial fibrillation (HCC) Atrial fibrillation | + + | Localized edema Edema | + + | Essential (primary) hypertension Unspecified essential hypertension | + + | Mixed hyperlipidemia | + + | extermination inspector current use of anticoagulant Encounter for long-term (current) use of | | anticoagulants | + + | Encounter for screening for diseases of the blood and blood-forming organs and certain | | disorders involving the immune mechanism | + + | Encounter for screening for other suspected endocrine disorder | + + documented in this encounter"
--- OUTSIDE RECORDS SUMMARY | ~2019-10-04 | XMS | Encounter Summary ---
Demographics + + + | Address | [address] | | | [place] [address] | + + + | Home Phone | | + + + | Preferred Language | Unknown | + + + | Marital Status | | + + + | Restoration Affiliation | Unknown | + + + [...] + | Johnson Flowers | ECON | [address] | | | | | [place] | | | | | [address] | | + + + + + Care Team Providers + +------+ + | Care Customer Relations Consultant Name | Role | Phone | + [...] + + | 08/14/ | Telephone | [facility] | Radha Sanchez | Testing | | 2020 | | CARDIOLOGY [place]J | [address] | | | | | [address] [facility] | [address] | | | | | [address] | [place] [address] | | | | | [place] | [phone] | | | | | [address] | | | | | | [phone] | | | +--------+ + + + [...] | | | | | | [place] [address] | | | | | | [phone] | | | | | | | | +--------+---------+ + + + documented as of this encounter Visit Diagnoses Not on filedocumented in this encounter"
--- OUTSIDE RECORDS SUMMARY | ~2019-10-04 | XMS | Clinical Summary ---
Demographics + + + | Address | [address] | | | [place] [address] | + + + | Home Phone | | + + + | Preferred Language | Unknown | + + + | Marital Status | | + + + | Tenriism Affiliation | Unknown | + + + | Race | Unknown | + + + | Ethnic Group | Unknown | + + + Author + + + | Author | [email or web address] (Historical as of | | | 01-12-19) | + + + | Organization | [facility] (Historical as of | | | 01-12-19) | + + + | Address | Unknown | + + + | Phone | Unavailable | + + + Support + + + + + | Name | Relationship | Address | Phone | + + + + + | Johnson Roberts | ECON | [address] | | | | | [place] | | | | | [address] | | + + + + + Care Team Providers + +------+ + | Care Overlock Sewing Machine Operator Name | Role | Phone | [...] + + | Overview: Eliquis 5 mg BID:[id number] VASC score 3 ( age, HTN) | [...] [place] | [place] - | [id number] | Medica | | | | | [...] +--------+-------+ + | MEDICAID | [place] | [id number] | | | [address] | | | N | | | | [place] | | | [place] | | | | [address] | | | SURFACING TECHNICIAN | | | | | + +--------+ [...] | Self | [birth year] | Home: | [address] | | | [place] | | 1946 | [phone] | [place] | | | may | | | [birth year]92 | [address] | + +--------+ +--------+ + +
--- OUTSIDE RECORDS SUMMARY | ~2019-10-04 | XMS | Encounter Summary ---
Demographics + + + | Address | [address] | | | [place] [address] | + + + | Home Phone | | + + + | Preferred Language | Unknown | + + + | Marital Status | | + + + | Anabaptism Affiliation | Unknown | + + + | Race | Unknown | + + + | Ethnic Group | Unknown | + + + Author + + + | Author | [facility] | | | and [place] | + + + | Organization | [facility] | | | and [place] | + + + | Address | Unknown | + + + | Phone | Unavailable | + + + Support + + + + + | Name | Relationship | Address | Phone | + + + + + | Johnson Flowers | ECON | [address] | | | | | [place] | | | | | [address] | | + + + + + Care Team Providers + +------+ + | Care Navy Material Inspector Name | Role | Phone | + [...] + + | 03/26/ | Telephone | [facility] | Radha Sanchez | Medication Question | | 2018 | | CARDIOLOGY [place]HEL | [address] | | | | | [address] | [address] | | | | | [address] | [place] [address] | | | | | [address] | [phone] | | | | | [phone] | | | +--------+ + + + [...] | | | | | | [place] [address] | | | | | | [phone] | | | | | | | | +--------+---------+ + + + documented as of this encounter Visit Diagnoses Not on filedocumented in this encounter"
--- OUTSIDE RECORDS SUMMARY | ~2019-10-04 | XMS | Encounter Summary ---
Demographics + + + | Address | [address] | | | [place] [address] | + + + | Home Phone | | + + + | Preferred Language | Unknown | + + + | Marital Status | | + + + | Holiness Affiliation | Unknown | + + + | Race | Unknown | + + + | Ethnic Group | Unknown | + + + Author + + + | Author | [facility] | | | and [place] | + + + | Organization | [facility] | | | and [place] | + + + | Address | Unknown | + + + | Phone | Unavailable | + + + Support + + + + + | Name | Relationship | Address | Phone | + + + + + | Johnson Flowers | ECON | [address] | | | | | [place] | | | | | [address] | | + + + + + Care Team Providers + +------+ + | Care Autocad Name | Role | Phone | + [...] Provider Unknown | | | | | [place], [place] | [phone] | | | | | [address] | | | | | | [phone] | | | +--------+ + + + [...] | | | | | | [place] [address] | | | | | | [phone] | | | | | | | | +--------+---------+ + + + documented as of this encounter Visit Diagnoses Not on filedocumented in this encounter"
--- OUTSIDE RECORDS SUMMARY | ~2019-10-04 | XMS | Encounter Summary ---
Demographics + + + | Address | [address] | | | [place] [address] | + + + | Home Phone | | + + + | Preferred Language | Unknown | + + + | Marital Status | | + + + | Latter Day Affiliation | Unknown | + + + | Race | Unknown | + + + | Ethnic Group | Unknown | + + + Author + + + | Author | [facility] | | | and [place] | + + + | Organization | [facility] | | | and [place] | + + + | Address | Unknown | + + + | Phone | Unavailable | + + + Support + + + + + | Name | Relationship | Address | Phone | + + + + + | Johnson Flowers | ECON | [address] | | | | | [place] | | | | | [address] | | + + + + + Care Team Providers + +------+ + | Care Facilities Engineering Manager Name | Role | Phone | + +------+ + PCP | Unavailable | + +------+ + Encounter Details +--------+ + + + + | Date | Type | Department | Care Team | Description | +--------+ + + + + | 05/13/ | Hospital | [facility] | | | | 1998 - | Encounter | [facility] | | | | | | [address] | | | | 03/10/ | | [place] [address] | | | | 1999 | | [phone] | | | +--------+ + + + [...] | | | | | | [place] [address] | | | | | | [phone] | | | | | | | | +--------+---------+ + + + documented as of this encounter Visit Diagnoses Not on filedocumented in this encounter"
--- OUTSIDE RECORDS SUMMARY | ~2019-10-04 | XMS | Encounter Summary ---
Demographics + + + | Address | [address] | | | [place] [address] | + + + | Home Phone | | + + + | Preferred Language | Unknown | + + + | Marital Status | | + + + | Adventist Affiliation | Unknown | + + + | Race | Unknown | + + + | Ethnic Group | Unknown | + + + Author + + + | Author | [facility] | | | and [place] | + + + | Organization | [facility] | | | and [place] | + + + | Address | Unknown | + + + | Phone | Unavailable | + + + Support + + + + + | Name | Relationship | Address | Phone | + + + + + | Johnson Flowers | ECON | [address] | | | | | [place] | | | | | [address] | | + + + + + Care Team Providers + +------+ + | Care Stained Glass Artist Name | Role | Phone | + [...] [place] | | | | | [place], [place] | [address] | | | | | [address] | [phone] | | | | | [phone] | | | +--------+ + + + [...] [place], | | | | | | [place] [address] | | | | | | [phone] | | | | | | | [...] 1.00 m/s | | | MV Dec [place]: 2.61 m/s2 MV DecT: 274.46 ms MV E [place]: 0.71 | | | m/s MV E/A Ratio: 0.71 MV PHT: 79.59 ms MVA By PHT: 2.76 | | | cm2 Septal e': 0.04 m/s Septal E/e': 16.10 Lateral e': | | | 0.07 m/s Lateral E/e': 9.86 Clipper And Turner: NATALIE Authenticated by: | | | ADOLPH [...] | 4.21 cmLVPWd: 1.32 cmLVOT Area: 3.89 fr6BMKV Diam: 2.22 cm%FS: 28.88 %EF(Teich): | | [...] mlLAESV Index (A-L): 22.56 ml/m2LAAs A2C: 17.44 [id number] A-L A2C: 48.26 mlLALs | | A2C: 5.35 cmLAAs A4C: 18.51 xt8OFRED A-L A4C: 53.52 mlLALs A4C: 5.43 cmRAAs: | | 14.80 hr3AIXGI A-L: 35.75 mlRAESV MOD: 35.14 mlRALs: 5.20 cmTAPSE: 2.96 cmAV | | maxP.16 mmHgAV meanP.10 mmHgAV Vmax: 2.74 m/Nicanor Vmean: 2.11 m/Nicanor VTI: | | 66.30 cmAVA Vmax: 1.13 cm2AVA (VTI): 1.24 yy9EQQI maxP.55 mmHgLVOT meanPG: | | 1.26 mmHgLVSI Dopp: 36.38 ml/m2LVSV Dopp: 82.59 mlLVOT Vmax: 0.79 m/sLVOT Vmean: | | 0.52 m/sLVOT VTI: 21.23 cmMV A Rodrigue: 1.00 m/sMV Dec [place]: 2.61 m/s2MV DecT: | | 274.46 msMV E [place]: 0.71 m/sMV E/A Ratio: 0.71MV PHT: 79.59 msMVA By PHT: 2.76 | | ji2Nllkpi e': 0.04 m/sSeptal E/e': 16.10Lateral e': 0.07 m/sLateral E/e': 9.86 | | Clipper And Turner: DHAuthenticated by: Vane CORDOVA Date/Time: 02-14-2018 18:15:1 [...] A Rodrig[place]: 1.00 m/s | |MV Dec [place]: 2.61 m/s2 | |MV DecT: 274.46 ms | |MV E [place]: 0.71 m/s | |MV E/A Ratio: 0.71 | |MV PHT: 79.59 ms | |MVA By PHT: 2.76 cm2 | |Septal e': 0.04 m/s | |Septal E/e': 16.10 | |Lateral e': 0.07 m/s | |Lateral E/e': 9.86 | | | |Clipper And Turner: DH | |Authenticated by: ADOLPH LEGGETT MD [...]
--- OUTSIDE RECORDS SUMMARY | ~2019-10-04 | XMS | Encounter Summary ---
Demographics + + + | Address | [address] | | | [place] [address] | + + + | Home Phone | | + + + | Preferred Language | Unknown | + + + | Marital Status | | + + + | Nondenominational Affiliation | Unknown | + + + | Race | Unknown | + + + | Ethnic Group | Unknown | + + + Author + + + | Author | [facility] | | | and [place] | + + + | Organization | [facility] | | | and [place] | + + + | Address | Unknown | + + + | Phone | Unavailable | + + + Support + + + + + | Name | Relationship | Address | Phone | + + + + + | Johnson Flowers | ECON | [address] | | | | | [place] | | | | | [address] | | + + + + + Care Team Providers + +------+ + | Care Car Loader Name | Role | Phone | + [...] + + | 08/14/ | Telephone | [facility] | Radha Sanchez | Testing | | 2020 | | CARDIOLOGY [place]J | [address] | | | | | [address] [facility] | [address] | | | | | [address] | [place] [address] | | | | | [place] | [phone] | | | | | [address] | | | | | | [phone] | | | +--------+ + + + [...] | | | | | | [place] [address] | | | | | | [phone] | | | | | | | | +--------+---------+ + + + documented as of this encounter Visit Diagnoses Not on filedocumented in this encounter"
--- OUTSIDE RECORDS SUMMARY | ~2019-10-04 | XMS | Clinical Summary ---
Demographics + + + | Address | [address] | | | [place] [address] | + + + | Home Phone [...] + | Author | [facility] | | | and [place] | + + + | Organization | [facility] | | | and [place] | + + + | Address | Unknown | + + + | Phone | Unavailable | + + + Support + + + + + | Name | Relationship | Address | Phone | + + + + + | Johnson Flowers | ECON | [address] | | | | | [place] | | | | | [address] | | + + + + + Care Team Providers + +------+ + | Care Medical Care Administrator Name | Role | Phone | + +------+ + | Zahra Quevedo | PCP | | + +------+ + Allergies + + + + + + | Active Allergy | Reactions | Severity | Noted | Comments | | | | | Date | | + + + + + + | Atorvastatin | Myalgia | Medium | 03/26/20 | | | | | | 19 | | + + + + + + Medications + + + +---------+------+------+-------+ | Medication | Sig | Dispensed | Refills | Star | End | Statu | | | | | | t | Date | s | | | | | | Date | | | + + + +---------+------+------+-------+ | escitalopram | Take 10 mg by mouth | | 0 | 09/2 | | Activ | | (LEXAPRO) 10 mg | nightly. | | | 5/20 | | e | | tablet | | | | 18 | | | + + + +---------+------+------+-------+ | metoprolol | Take 50 mg by mouth | | 0 | 09/2 | | Activ | | succinate | daily. | | | 5/20 | | e | | (TOPROL-XL) 50 mg 24 | | | | 18 | | | | hr tablet | | | | | | | + + + +---------+------+------+-------+ | apixaban (ELIQUIS) | Take 5 mg by mouth 2 | | 0 | 09/2 | | Activ | | 5 mg tablet | (two) times daily. | | | 5/20 | | e | | | | | | 18 | | | + + + +---------+------+------+-------+ | traZODone | Take 50 mg by mouth | | 0 | 04/0 | | Activ | | (DESYREL) 50 mg | nightly as needed | | | 1/20 | | e | | tablet | for Sleep. | | | 19 | | | + + + +---------+------+------+-------+ | | Take 1 tablet by | | 0 | | | Activ | | HYDROcodone-acetamin | mouth every 4 hours | | | | | e | | ophen (NORCO) 10-325 | as needed for Pain. | | | | | | | mg per tablet | | | | | | | + + + +---------+------+------+-------+ | pravastatin | Take 1 tablet by | 30 | 11 | 07/29 | 07/29 | Activ | | (PRAVACHOL) 20 mg | mouth nightly. | tablet | | 0/20 | 0/20 | e | | tablet | | | | 20 | 21 | | + + + +---------+------+------+-------+ Active Problems + + + | Problem | Noted Date | + + + | Pedal edema | 08/27/2018 | + + + | Essential hypertension | 08/27/2018 | + + + | Mixed hyperlipidemia | 08/27/2018 | + + + | Anticoagulated by anticoagulation treatment | 08/27/2018 | + + + + + | Overview: Eliquis 5 mg [id number] VASC score 3 ( age, HTN) | | HAS BLED 2 ( age HTN) | + + + +---+ | Atrial fibrillation | | + +---+ + + | Overview: and Paroxysmal Atrial Flutter, CHADS2 VASc 2, on | | Eliquis | + + + +---+ | Aortic stenosis, moderate | | + +---+ Encounters +--------+ + + + + | Date | Type | Specialty | Care Team | Description | +--------+ + + + + | 08/25/ | Orders Only | Cardiology | Radha Sanchez | | | 2019 | | | [address] | | +--------+ + + + + | 08/14/ | Telephone | Cardiology | Radha Sanchez | Testing | | 2019 | | | [address] | | +--------+ + + + + from Last 3 Months Family History + + +------+ + | Medical History | Relation | Name | Comments | + + +------+ + | Alcohol abuse | Father | | | + + +------+ + | Other (see comment) | Father | | Rheumatic Fever | + + +------+ + | Dementia | Mother | | | + + +------+ + + +------+ + + | Relation | Name | Status | Comments | + +------+ + + | Father | | | unknown cause of | | | | (Age | | | | | 55) | | + +------+ + + | Father | | | | + +------+ + + | Mother | | | old age | | | | (Age | | | | | 92) | | + +------+ + + | Mother | | | | + +------+ + + Social [...] recent travel history available. | + + Last Filed Vital Signs + [...] | Respiratory Rate | 18 | 08/27/2018 2:01 PM | | | | | PDT [...] | | + + + + + Plan of Treatment +--------+---------+ + + + | Date | Type | Specialty | Care Team | Description | +--------+---------+ + + + | 12/30/ | Office | Cardiology | Adalberto Leggett, | | | 2019 | Visit | | MD [address] | | | | | | [place], | | | | | | [place] [address] | | | | | | [phone] | | | | | | | | +--------+---------+ + + + + + + + + | Health Maintenance | Due Date | Last Done | Comments | + + + + + | Vaccine: | | | | | Pneumococcal 65+ (1 | 9 | | | | of 2 - PCV13) | | | | + + + + + | Adult Annual | | | | | Wellness Visit | 9 | | | + + + + + | Vaccine: Zoster (3 | | 03/01/2019, 02/14/2012 | | | of 3) | 9 | | | + + + + + | Vaccine: Influenza | | 02/15/2018, 03/14/2017, | | | (Season Ended) | 0 | 02/23/2016, Additional history | | | | | exists | | + + + + + | Vaccine: | | 02/19/2015 | | | Dtap/Tdap/Td (2 - | 5 | | | | Td) | | | | + + + + + Procedures + +--------+ + + + | Procedure Name | Priori | Date/Time | Associated Diagnosis | Comments | | | ty | | | | + +--------+ + + + | LABS - EXTERNAL SCAN | | 08/20/2019 | | Results for this | | | | 12:00 AM | | procedure are in the | | | | PDT | | results section. | + +--------+ + + + | ECG - EXTERNAL SCAN | | 08/12/2019 | | Results for this | | | | 12:00 AM | | procedure are in the | | | | PDT | | results section. | + +--------+ + + + | LABS - EXTERNAL SCAN | | 08/12/2019 | | Results for this | | | | 12:00 AM | | procedure are in the | | | | PDT | | results section. | + +--------+ + + + from Last 3 Months Results LABS - EXTERNAL SCAN (08/20/2019 12:00 AM PDT)Only the most recent of 2 results within the time period is included. + + + | Narrative | Performed At | + + + | Ordered by an | | | unspecified provider. | | + + + ECG - EXTERNAL SCAN (08/12/2019 12:00 AM PDT) + + + | Narrative | Performed At | + + + | Ordered by an | | | unspecified provider. | | + + + from Last 3 Months Insurance + +--------+ +--------+ +---------+--------+ | Payer | Benefi | Subscriber | Effect | Phone | Address | Type | | | t Plan | ID | júnior | | | | | | / | | Dates | | | | | | Group | | | | | | + +--------+ +--------+ +---------+--------+ | [employer] | [place] | [id number] | | [phone] | | Medica | | MEDICAID HMO | HEALTH | | [phone]-[id number] | 1 | | id | | | MDCD | | esent | | | | | | [place]MO [place] | | | | | | + +--------+ +--------+ +---------+--------+ + +--------+ +--------+ + + | Guarantor Name | Accoun | Relation to | Date | Phone | Billing Address | | | t Type | Patient | of | | | | | | | | | | + +--------+ +--------+ + + | Javi Flowers | Person | Self [birth year] | [address] | | | [place] | | 1946 | [phone] | [place] | | | may | | | 2 (Home) | [address] | + +--------+ +--------+ + + Advance Directives + + + + + | Type | Date Recorded | Patient | Explanation | | | | Mimeograph Operator | | + + + + + | Power of | | | | | Marketing Analytics Specialist | | | | + + + + + | Advance | | | | | Directive | | | | + + + + +
--- OUTSIDE RECORDS SUMMARY | ~2019-10-04 | XMS | Encounter Summary ---
Demographics + + + | Address | [address] | | | [place] [address] | + + + | Home Phone | | + + + | Preferred Language | Unknown | + + + | Marital Status | | + + + | Pentecostalism Affiliation | Unknown | + + + | Race | Unknown | + + + | Ethnic Group | Unknown | + + + Author + + + | Author | [facility] | | | and [place] | + + + | Organization | [facility] | | | and [place] | + + + | Address | Unknown | + + + | Phone | Unavailable | + + + Support + + + + + | Name | Relationship | Address | Phone | + + + + + | Johnson Flowers | ECON | [address] | | | | | [place] | | | | | [address] | | + + + + + Care Team Providers + +------+ + | Care Car Attendant Name | Role | Phone | + [...] Provider Unknown | | | | | [place], [place] | [phone] | | | | | [address] | | | | | | [phone] | | | +--------+ + + + [...] | | | | | | [place] [address] | | | | | | [phone] | | | | | | | | +--------+---------+ + + + documented as of this encounter Visit Diagnoses Not on filedocumented in this encounter"
--- OUTSIDE RECORDS SUMMARY | ~2019-10-04 | XMS | Encounter Summary ---
Demographics + + + | Address | [address] | | | [place] [address] | + + + | Home Phone | | + + + | Preferred Language | Unknown | + + + | Marital Status | | + + + | Judaism Affiliation | Unknown | + + + [...] + | Johnson Flowers | ECON | [address] | | | | | [place] | | | | | [address] | | + + + + + Care Team Providers + +------+ + | Care Toll Settlement Clerk Name | Role | Phone | + +------+ + | Zahra Quevedo | PCP | | + +------+ + Encounter Details +--------+ + + + + | Date | Type | Department | Care Team | Description | +--------+ + + + + | 01/11/ | Orders Only | [facility] | Radha Sanchez | Paroxysmal atrial | | 2019 | | CARDIOLOGY [place] | [address] | fibrillation (HCC); | | | | [address] | [address] | Localized edema; | | | | [address] | [place] [address] | Essential (primary) | | | | [place] | [phone] | hypertension; Mixed | | | | [address] | | hyperlipidemia; Long | | | | [phone] | | term current use of | [...] | | | | | | [place] [address] | | | | | | [phone] | | | | | | | | +--------+---------+ + + + + +------+--------+ + + | Name | Type | Priori | Associated Diagnoses | Order Schedule | | | | ty | | | + +------+--------+ + + | CBC with | Lab | Routin | superintendent marine oil terminal current | Expected: | | Differential | [...] | Mixed hyperlipidemia | + + | superintendent marine oil terminal current use of anticoagulant Encounter for long-term (current) use of | | anticoagulants | + + | Encounter for screening for diseases of the blood and blood-forming organs and certain | | disorders involving the immune mechanism | + + | Encounter for screening for other suspected endocrine disorder | + + documented in this encounter"
--- OUTSIDE RECORDS SUMMARY | ~2019-10-04 | XMS | Encounter Summary ---
Demographics + + + | Address | [address] | | | [place] [address] | + + + | Home Phone | | + + + | Preferred Language | Unknown | + + + | Marital Status | | + + + | Presybeterian Affiliation | Unknown | + + + [...] + | Johnson Flowers | ECON | [address] | | | | | [place] | | | | | [address] | | + + + + + Care Team Providers + +------+ + | Care Supervisor Drying And Winding Name | Role | Phone | + [...] | | | | | Essential | [facility] | Adalberto Flanagan MD | | | | | (primary) | [address] | |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 | Lionel Calderón | [address] | | | | | Procedures | Ld, | [address] | | | | | FOLLOW UP | [place] | [place] | | | | | | [address] | [address] Phone: | | | | | | Phone: | [phone] | | | | | | [phone] | Fax: | | | | | | Fax: | [phone] | | | | | | [phone] | | +--------+--------+ + + + + Encounter Details +--------+---------+ + + + | Date | Type | Department | Care Team | Description | +--------+---------+ + + + | 03/25/ | Office | [facility] | Radha Sanchez | Paroxysmal atrial | | 2019 | Visit | CARDIOLOGY [place] | [address] | fibrillation (HCC) | | | | [address] | [address] | (Primary Dx); Aortic | | | | [address] | [place] [address] | stenosis, moderate; | | | | [place] | [phone] | Essential | | | | [address] | | hypertension; Mixed | | | | [phone] | | hyperlipidemia; Long | | | [...] December [address] Leggett's documentation. 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 Low voltage QRS,Rate 57 bpm, SC 17 0 ms, QRS 84 ms, QTC 432 ms . tracing personally reviewed by me EK08/27/2018: Normal sinus rhythm, normal EKG, rate 61 bpm, SC 152 ms, QRS 88 ms, QTC 434 ms, tracing personally reviewed by me Addendum EK08/12/2019: Normal sinus rhythm, normal EKG, ongoing low voltage QRS to limb leads, except lead I, and V1, and lateral leads. Rate 61 bpm, SC 158 ms, QRS 82 ms, QTC 428 [...] 3. Essential hypertension 4. 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 Pedal edema [...] contain inadvertent rec ognition errors. Willie REDMOND [facility] Cardiology 03/25/2019 docum ented in this encounter [...] | | | | | | [place] [address] | | | | | | [phone] | | | | | | | [...] | Mixed hyperlipidemia | + + | [facility] current use of anticoagulant Encounter for long-term (current) use of | | anticoagulants | + + | Pedal edema Edema | + + | Screening for iron deficiency anemia | + + | Screening for thyroid disorder | + + documented in this encounter
--- OUTSIDE RECORDS SUMMARY | ~2019-10-04 | XMS | Clinical Summary ---
Demographics + + + | Address | [address] | | | [place] [address] | + + + | Home Phone | | + + + | Preferred Language | Unknown | + + + | Marital Status | | + + + | Episcopal Affiliation | Unknown | + + + | Race | Unknown | + + + | Ethnic Group | Unknown | + + + Author + + + | Author | [facility] | | | and [place] | + + + | Organization | [facility] | | | and [place] | + + + | Address | Unknown | + + + | Phone | Unavailable | + + + Support + + + + + | Name | Relationship | Address | Phone | + + + + + | Johnson Flowers | ECON | [address] | | | | | [place] | | | | | [address] | | + + + + + Care Team Providers + +------+ + | Care Lease Buyer Name | Role | Phone | + [...] + + | Overview: Eliquis 5 mg [id number] VASC score 3 ( age, HTN) | [...] | | | | | | [place] [address] | | | | | | [phone] | | | | | | | [...] | [employer] | [facility] | [id number] | | [phone] | | Medica | [...] Person | Self | [birth year] | [address] | | | al/[place] | | 1946 | [phone] | [place] | | | may | | | 2 (Home) | [address] | + +--------+ +--------+ + + Advance Directives + + + + + | Type | Date Recorded | Patient | Explanation | | | | Production Material Handler | | + + + + + | Power of | | | | | Taxation Economist | | | | + + + + + | Advance | | | | | Directive | | | | + + + + +
--- OUTSIDE RECORDS SUMMARY | ~2019-10-04 | XMS | Clinical Summary ---
Demographics + + + | Address | [address] | | | [place] [address] | + + + | Home Phone | | + + + | Preferred Language | Unknown | + + + | Marital Status | | + + + | Adventism Affiliation | Unknown | + + + | Race | Unknown | + + + | Ethnic Group | Unknown | + + + Author + + + | Author | [facility] (Historical as of | | | 01-12-19) | + + + | Organization | [facility] (Historical as of | | | 01-12-19) | + + + | Address | Unknown | + + + | Phone | Unavailable | + + + Support + + + + + | Name | Relationship | Address | Phone | + + + + + | Johnson Roberts | ECON | [address] | | | | | [place] | | | | | [address] | | + + + + + Care Team Providers + +------+ + | Care Wildlife Conservation Professor Name | Role | Phone | + [...] + + | Overview: Eliquis 5 mg BID:[id number] VASC score 3 ( age, HTN) | [...] [place] - [place] | [place] - | [id number] | Medica | | | | | [...] +--------+-------+ + | MEDICAID | [place] | [id number] | | | [address] | | | N | | | | [place] | | | TOM | | | | [address] | | | CORPORATE STRATEGY INTERN | | | | | + +--------+ [...] | Self | [birth year] | Home: | [address] | | | al/[place] | | 1946 | [phone] [place] | | | may | | | [phone] | [address] | + +--------+ +--------+ + +
--- OUTSIDE RECORDS SUMMARY | ~2019-10-04 | XMS | Encounter Summary ---
Demographics + + + | Address | [address] | | | [place] [address] | + + + | Home Phone [...] + | Johnson Flowers | ECON | [address] | | | | | [place] | | | | | [address] | | + + + + + Care Team Providers + +------+ + | Care Equity Research Analyst Name | Role | Phone | [...] [place] | | | | | | [address] | [address] Phone: | | | | | | Phone: | [phone] | | | | | | [phone] | Fax: | | | | | | Fax: | [phone] | | | | | | [phone] | | +--------+--------+ + + + + Encounter Details +--------+---------+ + + + | Date | Type | Department | Care Team | Description | +--------+---------+ + + + | 03/25/ | Office | [facility] | Radha Sanchez | Paroxysmal atrial | | 2019 | Visit | CARDIOLOGY LD | [address] | fibrillation (HCC) | | | | [address] | [address] | (Primary Dx); Aortic | | | | [address] | [place] [address] | stenosis, moderate; | | | | LD [place] | [phone] | Essential | | | | [address] | | hypertension; Mixed | | | | [phone] | | hyperlipidemia; Long | | | [...] December [address] Leggett's documentation. 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 Low voltage QRS,Rate 57 bpm, NH 17 0 ms, QRS 84 ms, QTC 432 ms . tracing personally reviewed by me EK08/27/2018: Normal sinus rhythm, normal EKG, rate 61 bpm, NH 152 ms, QRS 88 ms, QTC 434 ms, tracing personally reviewed by me Addendum EK08/12/2019: Normal sinus rhythm, normal EKG, ongoing low voltage QRS to limb leads, except lead I, and V1, and lateral leads. Rate 61 bpm, [place] 158 ms, QRS 82 ms, QTC 428 [...] 3. Essential hypertension 4. 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 Pedal edema [...] contain inadvertent rec ognition errors. Willie REDMOND [facility] Cardiology 03/25/2019 docum ented in this encounter [...] | | | | | | [place] [address] | | | | | | [phone] | | | | | | | [...] | Mixed hyperlipidemia | + + | [facility] current use of anticoagulant Encounter for long-term (current) use of | | anticoagulants | + + | Pedal edema Edema | + + | Screening for iron deficiency anemia | + + | Screening for thyroid disorder | + + documented in this encounter
--- OUTSIDE RECORDS SUMMARY | ~2019-10-04 | XMS | Encounter Summary ---
Demographics + + + | Address | [address] | | | [place] [address] | + + + | Home Phone | | + + + | Preferred Language | Unknown | + + + | Marital Status | | + + + | Sikhism Affiliation | Unknown | + + + | Race | Unknown | + + + | Ethnic Group | Unknown | + + + Author + + + | Author | [facility] | | | and [place] | + + + | Organization | [facility] | | | and [place] | + + + | Address | Unknown | + + + | Phone | Unavailable | + + + Support + + + + + | Name | Relationship | Address | Phone | + + + + + | Johnson Flowers | ECON | [address] | | | | | [place] | | | | | [address] | | + + + + + Care Team Providers + +------+ + | Care Farmworker Name | Role | Phone | + +------+ + PCP | Unavailable | + +------+ + Encounter Details +--------+ + + + + | Date | Type | Department | Care Team | Description | +--------+ + + + + | 05/13/ | Hospital | [facility] | | | | 1998 - | Encounter | MED CTR OP REHAB | | | | | | [address] | | | | 03/10/ | | [place] [address] | | | | 1999 | | [phone] | | | +--------+ + + + [...] | | | | | | [place] [address] | | | | | | [phone] | | | | | | | | +--------+---------+ + + + documented as of this encounter Visit Diagnoses Not on filedocumented in this encounter"
--- OUTSIDE RECORDS SUMMARY | ~2019-10-04 | XMS | Encounter Summary ---
Demographics + + + | Address | [address] | | | [place] [address] | + + + | Home Phone | | + + + | Preferred Language | Unknown | + + + | Marital Status | | + + + | Spiritism Affiliation | Unknown | + + + | Race | Unknown | + + + | Ethnic Group | Unknown | + + + Author + + + | Author | [facility] | | | and [place] | + + + | Organization | [facility] | | | and [place] | + + + | Address | Unknown | + + + | Phone | Unavailable | + + + Support + + + + + | Name | Relationship | Address | Phone | + + + + + | Johnson Flowers | ECON | [address] | | | | | [place] | | | | | [address] | | + + + + + Care Team Providers + +------+ + | Care Field Operations Supervisor Name | Role | Phone | + +------+ + PCP | Unavailable | + +------+ + Encounter Details +--------+ + + + + | Date | Type | Department | Care Team | Description | +--------+ + + + + | 04/15/ | Hospital | [facility] | | | | 1998 - | Encounter | MED CTR GENERIC IP | | | | | | CONV DEPT [address] | | | | 04/16/ | | [place], | | | | 1998 | | [place] [address] | | | | | | [phone] | | | +--------+ + + + [...] | | | | | | [place] [address] | | | | | | [phone] | | | | | | | | +--------+---------+ + + + documented as of this encounter Visit Diagnoses Not on filedocumented in this encounter"
--- OUTSIDE RECORDS SUMMARY | ~2019-10-04 | XMS | Encounter Summary ---
Demographics + + + | Address | [address] | | | [place] [address] | + + + | Home Phone [...] + | Johnson Flowers | ECON | [address] | | | | | [place] | | | | | [address] | | + + + + + Care Team Providers + +------+ + | Care Air Export Coordinator Name | Role | Phone | + +------+ + PCP | Unavailable | + +------+ + Encounter Details +--------+ + + + + | Date | Type | Department | Care Team | Description | +--------+ + + + + | 05/13/ | Hospital | [facility] | | | | 1998 - | Encounter | MED CTR OP REHAB | | | | | | [address] | | | | 03/10/ | | [place] [address] | | | | 1999 | | [phone] | | | +--------+ + + + [...] | | | | | | [place] [address] | | | | | | [phone] | | | | | | | | +--------+---------+ + + + documented as of this encounter Visit Diagnoses Not on filedocumented in this encounter"
--- OUTSIDE RECORDS SUMMARY | ~2019-10-04 | XMS | Encounter Summary ---
Demographics + + + | Address | [address] | | | [place] [address] | + + + | Home Phone | | + + + | Preferred Language | Unknown | + + + | Marital Status | | + + + | Adventist Affiliation | Unknown | + + + | Race | Unknown | + + + | Ethnic Group | Unknown | + + + Author + + + | Author | [facility] | | | and [place] | + + + | Organization | [facility] | | | and [place] | + + + | Address | Unknown | + + + | Phone | Unavailable | + + + Support + + + + + | Name | Relationship | Address | Phone | + + + + + | Johnson Flowers | ECON | [address] | | | | | [place] | | | | | [address] | | + + + + + Care Team Providers + +------+ + | Care Licensed Physical Therapist Assistant Name | Role | Phone | + [...] + + | 03/26/ | Telephone | [facility] | Radha Sanchez | Medication Question | | 2018 | | CARDIOLOGY [place] | [address] | | | | | [address] | [address] | | | | | [address] [place] | [place] [address] | | | | | [address] | [phone] | | | | | [phone] | | | +--------+ + + + [...] | | | | | | [place] [address] | | | | | | [phone] | | | | | | | | +--------+---------+ + + + documented as of this encounter Visit Diagnoses Not on filedocumented in this encounter"
--- OUTSIDE RECORDS SUMMARY | ~2019-10-04 | XMS | Encounter Summary ---
Demographics + + + | Address | [address] | | | [place] [address] | + + + | Home Phone | | + + + | Preferred Language | Unknown | + + + | Marital Status | | + + + | Jainism Affiliation | Unknown | + + + | Race | Unknown | + + + | Ethnic Group | Unknown | + + + Author + + + | Author | [facility] | | | and [place] | + + + | Organization | [facility] | | | and [place] | + + + | Address | Unknown | + + + | Phone | Unavailable | + + + Support + + + + + | Name | Relationship | Address | Phone | + + + + + | Johnson Flowers | ECON | [address] | | | | | [place] | | | | | [address] | | + + + + + Care Team Providers + +------+ + | Care Erector Operator Name | Role | Phone | [...] + | 03/26/ | Telephone | [facility] | Radha Sanchez | Medication Question | | 2018 | | CARDIOLOGY [place] | [address] | | | | | [address] | [address] | | | | | [address] [place] | [place] [address] | | | | | [address] | [phone] | | | | | [phone] | | | +--------+ + + + [...] | | | | | | [place] [address] | | | | | | [phone] | | | | | | | | +--------+---------+ + + + documented as of this encounter Visit Diagnoses Not on filedocumented in this encounter"
--- OUTSIDE RECORDS SUMMARY | ~2019-10-04 | XMS | Encounter Summary ---
Demographics + + + | Address | [address] | | | [place] [address] | + + + | Home Phone | | + + + | Preferred Language | Unknown | + + + | Marital Status | | + + + | Moravian Affiliation | Unknown | + + + | Race | Unknown | + + + | Ethnic Group | Unknown | + + + Author + + + | Author | [facility] | | | and [place] | + + + | Organization | [facility] | | | and [place] | + + + | Address | Unknown | + + + | Phone | Unavailable | + + + Support + + + + + | Name | Relationship | Address | Phone | + + + + + | Johnson Flowers | ECON | [address] | | | | | [place] | | | | | [address] | | + + + + + Care Team Providers + +------+ + | Care Manager Trade Marketing Name | Role | Phone | + +------+ + PCP | Unavailable | + +------+ + Encounter Details +--------+ + + + + | Date | Type | Department | Care Team | Description | +--------+ + + + + | 04/15/ | Hospital | [facility] | | | | 1998 - | Encounter | MED CTR GENERIC IP | | | | | | CONV DEPT [address] | | | | 04/16/ | | [place], | | | | 1998 | | [place] [address] | | | | | | [phone] | | | +--------+ + + + [...] | | | | | | [place] [address] | | | | | | [phone] | | | | | | | | +--------+---------+ + + + documented as of this encounter Visit Diagnoses Not on filedocumented in this encounter"
--- OUTSIDE RECORDS SUMMARY | ~2019-10-04 | XMS | Encounter Summary ---
Demographics + + + | Address | [address] | | | [place] [address] | + + + | Home Phone | | + + + | Preferred Language | Unknown | + + + | Marital Status | | + + + | Orthodoxy Affiliation | Unknown | + + + | Race | Unknown | + + + | Ethnic Group | Unknown | + + + Author + + + | Author | [facility] | | | and [place] | + + + | Organization | [facility] | | | and [place] | + + + | Address | Unknown | + + + | Phone | Unavailable | + + + Support + + + + + | Name | Relationship | Address | Phone | + + + + + | Johnson Flowers | ECON | [address] | | | | | [place] | | | | | [address] | | + + + + + Care Team Providers + +------+ + | Care System Manager Name | Role | Phone | + +------+ + | Zahra Quevedo | PCP | | + +------+ + Encounter Details +--------+ + + + + | Date | Type | Department | Care Team | Description | +--------+ + + + + | 03/26/ | Orders Only | [facility] | Radha Sanchez | Mixed hyperlipidemia | | 2019 | | CARDIOLOGY [place] | [address] | (Primary Dx) | | | | [address] | [address] | | | | | [address] [place], [place] | [place] [address] | | | | | [address] | [phone] | | | | | [phone] | | | +--------+ + + + [...] | | | | | | [place] [address] | | | | | | [phone] | | | | | | | | +--------+---------+ + + + documented as of this encounter Visit Diagnoses + + | Diagnosis | + + | Mixed hyperlipidemia - Primary | + + documented in this encounter"
--- OUTSIDE RECORDS SUMMARY | ~2019-10-04 | XMS | Encounter Summary ---
Demographics + + + | Address | [address] | | | [place] [address] | + + + | Home Phone [...] + | Johnson Flowers | ECON | [address] | | | | | [place] | | | | | [address] | | + + + + + Care Team Providers + +------+ + | Care Methods Examiner Name | Role | Phone | + [...] [place] | | | | | | [address] | [address] Phone: | | | | | | Phone: | [phone] | | | | | | [phone] | Fax: | | | | | | Fax: | [phone] | | | | | | [phone] | | +--------+--------+ + + + + Encounter Details +--------+---------+ + + + | Date | Type | Department | Care Team | Description | +--------+---------+ + + + | 03/25/ | Office | [facility] | Radha Sanchez | Paroxysmal atrial | | 2019 | Visit | CARDIOLOGY LD | [address] | fibrillation (HCC) | | | | [address] | [address] | (Primary Dx); Aortic | | | | [address] | [place] [address] | stenosis, moderate; | | | | LD [place] | [phone] | Essential | | | | [address] | | hypertension; Mixed | | | | [phone] | | hyperlipidemia; Long | | | [...] December [address] Leggett's documentation. 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 Low voltage QRS,Rate 57 bpm, [place] 17 0 ms, QRS 84 ms, QTC 432 ms . tracing personally reviewed by me EK08/27/2018: Normal sinus rhythm, normal EKG, rate 61 bpm, [place] 152 ms, QRS 88 ms, QTC 434 ms, tracing personally reviewed by me Addendum EK08/12/2019: Normal sinus rhythm, normal EKG, ongoing low voltage QRS to limb leads, except lead I, and V1, and lateral leads. Rate 61 bpm, [place] 158 ms, QRS 82 ms, QTC 428 [...] 3. Essential hypertension 4. 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 Pedal edema [...] contain inadvertent rec ognition errors. Willie REDMOND [facility] Cardiology 03/25/2019 docum ented in this encounter Plan of Treatment +--------+---------+ + + + | Date | Type | Specialty | Care Team | Description | +--------+---------+ + + + | 12/30/ | Office | Cardiology | Adalberto Leggett, | | 2019 | Visit | | MD [address] | | | | | | [place], | | | | | | [place] [address] | | | | | | [phone] | | | | | | | [...] | Mixed hyperlipidemia | + + | [facility] current use of anticoagulant Encounter for long-term (current) use of | | anticoagulants | + + | Pedal edema Edema | + + | Screening for iron deficiency anemia | + + | Screening for thyroid disorder | + + documented in this encounter
--- OUTSIDE RECORDS SUMMARY | ~2019-10-04 | XMS | Encounter Summary ---
Demographics + + + | Address | [address] | | | [place] [address] | + + + | Home Phone [...] + | Author | [facility] | | | and [place] | + + + | Organization | [facility] | | | and [place] | + + + | Address | Unknown | + + + | Phone | Unavailable | + + + Support + + + + + | Name | Relationship | Address | Phone | + + + + + | Johnson Flowers | ECON | [address] | | | | | [place] | | | | | [address] | | + + + + + Care Team Providers + +------+ + | Care Insurance Service Representative Name | Role | Phone | + +------+ + PCP | Unavailable | + +------+ + Encounter Details +--------+ + + + + | Date | Type | Department | Care Team | Description | +--------+ + + + + | 10/05/ | Hospital | [facility] | Rick Gamez | Open fracture of | | 1997 - | Encounter | [facility] [address] | [address] | middle or proximal | | | | [address] | [place] [address] | phalanx or phalanges | | 10/06/ | | [place], [place] | [phone] | of hand | | 1997 | | [address] | | | | | | [phone] | | | +--------+ + + + [...] | | | | | | [place] [address] | | | | | | [phone] | | | | | | | | +--------+---------+ + + + documented as of this encounter Visit Diagnoses + + | Diagnosis | + + | Open fracture of middle or proximal phalanx or phalanges of hand | + + documented in this encounter"
--- OUTSIDE RECORDS SUMMARY | ~2019-10-04 | XMS | Clinical Summary ---
Demographics + + + | Address | [address] | | | [place] [address] | + + + | Home Phone | | + + + | Preferred Language | Unknown | + + + | Marital Status | | + + + | Quaker Affiliation | Unknown | + + + | Race | Unknown | + + + | Ethnic Group | Unknown | + + + Author + + + | Author | [facility] | | | and [place] | + + + | Organization | [facility] | | | and [place] | + + + | Address | Unknown | + + + | Phone | Unavailable | + + + Support + + + + + | Name | Relationship | Address | Phone | + + + + + | Johnson Flowers | ECON | [address] | | | | | [place] | | | | | [address] | | + + + + + Care Team Providers + +------+ + | Care Air Hole Driller Name | Role | Phone | + [...] + + | Overview: Eliquis 5 mg BID:[id number] VASC score 3 ( age, HTN) | [...] | | | | | | [place] [address] | | | | | | [phone] | | | | | | | [...] | [employer] | [facility] | [id number] | | [phone] | | Medica | [...] Person | Self | [birth year] | [address] | | | al[place] | | 1946 | [phone] | [place] | | | may | | | 2 (Home) | [address] | + +--------+ +--------+ + + Advance Directives + + + + + | Type | Date Recorded | Patient | Explanation | | | | Offshore Wind Turbine Technician | | + + + + + | Power of | | | | | Gis Professor | | | | + + + + + | Advance | | | | | Directive | | | | + + + + +
--- OUTSIDE RECORDS SUMMARY | ~2019-10-04 | XMS | Encounter Summary ---
Demographics + + + | Address | [address] | | | [place] [address] | + + + | Home Phone | | + + + | Preferred Language | Unknown | + + + | Marital Status | | + + + | Confucianism Affiliation | Unknown | + + + | Race | Unknown | + + + | Ethnic Group | Unknown | + + + Author + + + | Author | [facility] | | | and [place] | + + + | Organization | [facility] | | | and [place] | + + + | Address | Unknown | + + + | Phone | Unavailable | + + + Support + + + + + | Name | Relationship | Address | Phone | + + + + + | Johnson Flowers | ECON | [address] | | | | | [place] | | | | | [address] | | + + + + + Care Team Providers + +------+ + | Care Cabin Outfitter Name | Role | Phone | + [...] [place] | | | | | [place], [place] | [address] | | | | | [address] | [phone] | | | | | [phone] | | | +--------+ + + + [...] [place], | | | | | | [place] [address] | | | | | | [phone] | | | | | | | [...] 1.00 m/s | | | MV Dec [place]: 2.61 m/s2 MV DecT: 274.46 ms MV E Rodrigue: 0.71 | | | m/s MV E/A Ratio: 0.71 MV PHT: 79.59 ms MVA By PHT: 2.76 | | | cm2 Septal e': 0.04 m/s Septal E/e': 16.10 Lateral e': | | | 0.07 m/s Lateral E/e': 9.86 Cotton Ball Machine Tender: NATALIE Authenticated by: | | | ADOLPH [...] | 4.21 cmLVPWd: 1.32 cmLVOT Area: 3.89 [id number] Diam: 2.22 cm%FS: 28.88 %EF(Teich): | | [...] mlLAESV Index (A-L): 22.56 ml/m2LAAs A2C: 17.44 [id number] A-L A2C: 48.26 mlLALs | | A2C: 5.35 cmLAAs A4C: 18.51 zg4PGQCI A-L A4C: 53.52 mlLALs A4C: 5.43 cmRAAs: | | 14.80 es4QPDYW A-L: 35.75 mlRAESV MOD: 35.14 mlRALs: 5.20 cmTAPSE: 2.96 cmAV | | maxP.16 mmHgAV meanP.10 mmHgAV Vmax: 2.74 m/Nicanor Vmean: 2.11 m/Nicanor VTI: | | 66.30 cmAVA Vmax: 1.13 cm2AVA (VTI): 1.24 [id number] maxP.55 mmHgLVOT meanPG: | | 1.26 mmHgLVSI Dopp: 36.38 ml/m2LVSV Dopp: 82.59 mlLVOT Vmax: 0.79 m/sLVOT Vmean: | | 0.52 m/sLVOT VTI: 21.23 cmMV A [place]: 1.00 m/sMV Dec [place]: 2.61 m/s2MV DecT: | | 274.46 msMV E [place]: 0.71 m/sMV E/A Ratio: 0.71MV PHT: 79.59 msMVA By PHT: 2.76 | | co8Gtmjdp e': 0.04 m/sSeptal E/e': 16.10Lateral e': 0.07 m/sLateral E/e': 9.86 | | Cotton Ball Machine Tender: DHAuthenticated by: Vnae CORDOVA Date/Time: 02-14-2018 18:15:1 | | IMPRESSION: [...] A Rodrig[place]: 1.00 m/s | |MV Dec [place]: 2.61 m/s2 | |MV DecT: 274.46 ms | |MV E Rodrigue: 0.71 m/s | |MV E/A Ratio: 0.71 | |MV PHT: 79.59 ms | |MVA By PHT: 2.76 cm2 | |Septal e': 0.04 m/s | |Septal E/e': 16.10 | |Lateral e': 0.07 m/s | |Lateral E/e': 9.86 | | | |Cotton Ball Machine Tender: DH | |Authenticated by: ADOLPH LEGGETT MD [...]
--- OUTSIDE RECORDS SUMMARY | ~2019-10-04 | XMS | Encounter Summary ---
Demographics + + + | Address | [address] | | | [place] [address] | + + + | Home Phone | | + + + | Preferred Language | Unknown | + + + | Marital Status | | + + + | Episcopal Affiliation | Unknown | + + + | Race | Unknown | + + + | Ethnic Group | Unknown | + + + Author + + + | Author | [facility] | | | and [place] | + + + | Organization | [facility] | | | and [place] | + + + | Address | Unknown | + + + | Phone | Unavailable | + + + Support + + + + + | Name | Relationship | Address | Phone | + + + + + | Johnson Flowers | ECON | [address] | | | | | [place] | | | | | [address] | | + + + + + Care Team Providers + +------+ + | Care Screen Writer Name | Role | Phone | + +------+ + PCP | Unavailable | + +------+ + Encounter Details +--------+ + + + + | Date | Type | Department | Care Team | Description | +--------+ + + + + | 10/05/ | Hospital | [facility] | Rikc Gamez | Open fracture of | | 1997 - | Encounter | [facility]ENTER [facility] [address] | [address] | middle or proximal | | | | [address] | [place] [address] | phalanx or phalanges | | 10/06/ | | [place], [place] | [phone] | of hand | | 1997 | | [address] | | | | | | [phone] | | | +--------+ + + + [...] | | | | | | [place] [address] | | | | | | [phone] | | | | | | | | +--------+---------+ + + + documented as of this encounter Visit Diagnoses + + | Diagnosis | + + | Open fracture of middle or proximal phalanx or phalanges of hand | + + documented in this encounter"
--- OUTSIDE RECORDS SUMMARY | ~2019-10-04 | XMS | Encounter Summary ---
Demographics + + + | Address | [address] | | | [place] [address] | + + + | Home Phone | | + + + | Preferred Language | Unknown | + + + | Marital Status | | + + + | Christianity Affiliation | Unknown | + + + | Race | Unknown | + + + | Ethnic Group | Unknown | + + + Author + + + | Author | [facility] | | | and [place] | + + + | Organization | [facility] | | | and [place] | + + + | Address | Unknown | + + + | Phone | Unavailable | + + + Support + + + + + | Name | Relationship | Address | Phone | + + + + + | Johnson Flowers | ECON | [address] | | | | | [place] | | | | | [address] | | + + + + + Care Team Providers + +------+ + | Care Spring Repairer Helper Hand Name | Role | Phone | + [...] Provider Unknown | | | | | [place], [place] | [phone] | | | | | [address] | | | | | | [phone] | | | +--------+ + + + [...] | | | | | | [place] [address] | | | | | | [phone] | | | | | | | | +--------+---------+ + + + documented as of this encounter Visit Diagnoses Not on filedocumented in this encounter"
--- OUTSIDE RECORDS SUMMARY | ~2019-10-04 | XMS | Encounter Summary ---
Demographics + + + | Address | [address] | | | [place] [address] | + + + | Home Phone | | + + + | Preferred Language | Unknown | + + + | Marital Status | | + + + | Mormonism Affiliation | Unknown | + + + | Race | Unknown | + + + | Ethnic Group | Unknown | + + + Author + + + | Author | [facility] | | | and [place] | + + + | Organization | [facility] | | | and [place] | + + + | Address | Unknown | + + + | Phone | Unavailable | + + + Support + + + + + | Name | Relationship | Address | Phone | + + + + + | Johnson Flowers | ECON | [address] | | | | | [place] | | | | | [address] | | + + + + + Care Team Providers + +------+ + | Care Rehabilitation Clerk Name | Role | Phone | [...] + + | 08/14/ | Telephone | [facility] | Radha Sanchez | Testing | | 2020 | | CARDIOLOGY [place] | [address] | | | | | [address] [facility] | [address] | | | | | [address] | [place] [address] | | | | | [place] | [phone] | | | | | [address] | | | | | | [phone] | | | +--------+ + + + [...] | | | | | | [place] [address] | | | | | | [phone] | | | | | | | | +--------+---------+ + + + documented as of this encounter Visit Diagnoses Not on filedocumented in this encounter"
--- OUTSIDE RECORDS SUMMARY | ~2019-10-04 | XMS | Encounter Summary ---
Demographics + + + | Address | [address] | | | [place] [address] | + + + | Home Phone | | + + + | Preferred Language | Unknown | + + + | Marital Status | | + + + | Orthodox Affiliation | Unknown | + + + | Race | Unknown | + + + | Ethnic Group | Unknown | + + + Author + + + | Author | [facility] | | | and [place] | + + + | Organization | [facility] | | | and [place] | + + + | Address | Unknown | + + + | Phone | Unavailable | + + + Support + + + + + | Name | Relationship | Address | Phone | + + + + + | Johnson Flowers | ECON | [address] | | | | | [place] | | | | | [address] | | + + + + + Care Team Providers + +------+ + | Care Wire Straightening Machine Operator Name | Role | Phone | + +------+ + | Zahra Quevedo | PCP | | + +------+ + Encounter Details +--------+ + + + + | Date | Type | Department | Care Team | Description | +--------+ + + + + | 03/26/ | Orders Only | [facility] | Radha Sanchez | Mixed hyperlipidemia | | 2019 | | CARDIOLOGY [place] | [address] | (Primary Dx) | | | | [address] | [address] | | | | | [address] [place], [place] | [place] [address] | | | | | [address] | [phone] | | | | | [phone] | | | +--------+ + + + [...] | | | | | | [place] [address] | | | | | | [phone] | | | | | | | | +--------+---------+ + + + documented as of this encounter Visit Diagnoses + + | Diagnosis | + + | Mixed hyperlipidemia - Primary | + + documented in this encounter"
--- OUTSIDE RECORDS SUMMARY | ~2019-10-04 | XMS | Clinical Summary ---
Demographics + + + | Address | [address] | | | [place] [address] | + + + | Home Phone | | + + + | Preferred Language | Unknown | + + + | Marital Status | | + + + | Adventist Affiliation | Unknown | + + + | Race | Unknown | + + + | Ethnic Group | Unknown | + + + Author + + + | Author | [facility] (Historical as of | | | 01-12-19) | + + + | Organization | [facility] (Historical as of | | | 01-12-19) | + + + | Address | Unknown | + + + | Phone | Unavailable | + + + Support + + + + + | Name | Relationship | Address | Phone | + + + + + | Johnson Roberts | ECON | [address] | | | | | [place] | | | | | [address] | | + + + + + Care Team Providers + +------+ + | Care Cutter Machine Tender Name | Role | Phone | + [...] + + | Overview: Eliquis 5 mg BID:HKF1VW1 VASC score 3 ( age, HTN) | [...] [place] | [place] - | [id number] | Medica | | | | | [...] +--------+-------+ + | MEDICAID | [place] | [id number] | | | [address] | | | N | | | | [place] | | | TOM | | | | [address] | | | FOOTBALL COACH | | | | | + +--------+ [...] | Self | [birth year] | Home: | [address] | | | [place] | | 1946 | [phone] [place] | | | may | | | [address] | [address] | + +--------+ +--------+ + +
--- OUTSIDE RECORDS SUMMARY | ~2019-10-04 | XMS | Encounter Summary ---
Demographics + + + | Address | [address] | | | [place] [address] | + + + | Home Phone | | + + + | Preferred Language | Unknown | + + + | Marital Status | | + + + | Amish Affiliation | Unknown | + + + | Race | Unknown | + + + | Ethnic Group | Unknown | + + + Author + + + | Author | [facility] | | | and [place] | + + + | Organization | [facility] | | | and [place] | + + + | Address | Unknown | + + + | Phone | Unavailable | + + + Support + + + + + | Name | Relationship | Address | Phone | + + + + + | Johnson Flowers | ECON | [address] | | | | | [place] | | | | | [address] | | + + + + + Care Team Providers + +------+ + | Care Yarn Texture Machine Operator Name | Role | Phone [...] Provider Unknown | | | | | [place], [place] | [phone] | | | | | [address] | | | | | | [phone] | | | +--------+ + + + [...] | | | | | | [place] [address] | | | | | | [phone] | | | | | | | | +--------+---------+ + + + documented as of this encounter Visit Diagnoses Not on filedocumented in this encounter"
--- OUTSIDE RECORDS SUMMARY | ~2019-10-04 | XMS | Encounter Summary ---
Demographics + + + | Address | [address] | | | [place] [address] | + + + | Home Phone [...] + | Johnson Flowers | ECON | [address] | | | | | [place] | | | | | [address] | | + + + + + Care Team Providers + +------+ + | Care Sales Representative Marine Supplies Name | Role | Phone | + [...] Provider Unknown | | | | | [place], [place] | [phone] | | | | | [address] | | | | | | [phone] | | | +--------+ + + + [...] | | | | | | [place] [address] | | | | | | [phone] | | | | | | | | +--------+---------+ + + + documented as of this encounter Visit Diagnoses Not on filedocumented in this encounter"
--- OUTSIDE RECORDS SUMMARY | ~2019-10-04 | XMS | Encounter Summary ---
Demographics + + + | Address | [address] | | | [place] [address] | + + + | Home Phone | | + + + | Preferred Language | Unknown | + + + | Marital Status | | + + + | Restorationism Affiliation | Unknown | + + + | Race | Unknown | + + + | Ethnic Group | Unknown | + + + Author + + + | Author | [facility] | | | and [place] | + + + | Organization | [facility] | | | and [place] | + + + | Address | Unknown | + + + | Phone | Unavailable | + + + Support + + + + + | Name | Relationship | Address | Phone | + + + + + | Johnson Flowers | ECON | [address] | | | | | [place] | | | | | [address] | | + + + + + Care Team Providers + +------+ + | Care Manager Talent Acquisition Name | Role | Phone | + +------+ + PCP | Unavailable | + +------+ + Encounter Details +--------+ + + + + | Date | Type | Department | Care Team | Description | +--------+ + + + + | 04/15/ | Hospital | [facility] | | | | 1998 - | Encounter | MED CTR GENERIC IP | | | | | | CONV DEPT [address] | | | | 04/16/ | | [place], | | | | 1998 | | [place] [address] | | | | | | [phone] | | | +--------+ + + + [...] | | | | | | [place] [address] | | | | | | [phone] | | | | | | | | +--------+---------+ + + + documented as of this encounter Visit Diagnoses Not on filedocumented in this encounter"
--- OUTSIDE RECORDS SUMMARY | ~2019-10-04 | XMS | Encounter Summary ---
Demographics + + + | Address | [address] | | | [place] [address] | + + + | Home Phone | | + + + | Preferred Language | Unknown | + + + | Marital Status | | + + + | Druze Affiliation | Unknown | + + + | Race | Unknown | + + + | Ethnic Group | Unknown | + + + Author + + + | Author | [facility] | | | and [place] | + + + | Organization | [facility] | | | and [place] | + + + | Address | Unknown | + + + | Phone | Unavailable | + + + Support + + + + + | Name | Relationship | Address | Phone | + + + + + | Johnson Flowers | ECON | [address] | | | | | [place] | | | | | [address] | | + + + + + Care Team Providers + +------+ + | Care Children'S Librarian Name | Role | Phone | + +------+ + | Zahra Quevedo | PCP | | + +------+ + Encounter Details +--------+ + + + + | Date | Type | Department | Care Team | Description | +--------+ + + + + | 01/11/ | Orders Only | [facility] | Radha Sanchez | Paroxysmal atrial | | 2019 | | CARDIOLOGY [place] | [address] | fibrillation (HCC); | | | | [address] | [address] | Localized edema; | | | | [address] | [place] [address] | Essential (primary) | | | | [place], [place] | [phone] | hypertension; Mixed | | | | [address] | | hyperlipidemia; Long | | | | [phone] | | term current use of | [...] | | | | | | [place] [address] | | | | | | [phone] | | | | | | | | +--------+---------+ + + + + +------+--------+ + + | Name | Type | Priori | Associated Diagnoses | Order Schedule | | | | ty | | | + +------+--------+ + + | CBC with | Lab | Routin | continuous churn buttermaker current | Expected: | | Differential | [...] | Mixed hyperlipidemia | + + | continuous churn buttermaker current use of anticoagulant Encounter for long-term (current) use of | | anticoagulants | + + | Encounter for screening for diseases of the blood and blood-forming organs and certain | | disorders involving the immune mechanism | + + | Encounter for screening for other suspected endocrine disorder | + + documented in this encounter"
--- OUTSIDE RECORDS SUMMARY | ~2019-10-04 | XMS | Encounter Summary ---
Demographics + + + | Address | [address] | | | [place] [address] | + + + | Home Phone | | + + + | Preferred Language | Unknown | + + + | Marital Status | | + + + | Sabianism Affiliation | Unknown | + + + | Race | Unknown | + + + | Ethnic Group | Unknown | + + + Author + + + | Author | [facility] | | | and [place] | + + + | Organization | [facility] | | | and [place] | + + + | Address | Unknown | + + + | Phone | Unavailable | + + + Support + + + + + | Name | Relationship | Address | Phone | + + + + + | Johnson Flowers | ECON | [address] | | | | | [place] | | | | | [address] | | + + + + + Care Team Providers + +------+ + | Care Sprue Knocker Name | Role | Phone | + [...] + + | 04/17/ | Telephone | [facility] | Radha Sanchez | Medication Question | | 2019 | | CARDIOLOGY [place] | [address] | | | | | [address] | [address] | | | | | [address] | [place] [address] | | | | | [place] | [phone] | | | | | [address] | | | | | | [phone] | | | +--------+ + + + [...] | | | | | | [place] [address] | | | | | | [phone] | | | | | | | | +--------+---------+ + + + documented as of this encounter Visit Diagnoses Not on filedocumented in this encounter"
--- OUTSIDE RECORDS SUMMARY | ~2019-10-04 | XMS | Encounter Summary ---
Demographics + + + | Address | [address] | | | [place] [address] | + + + | Home Phone | | + + + | Preferred Language | Unknown | + + + | Marital Status | | + + + | Baptism Affiliation | Unknown | + + + | Race | Unknown | + + + | Ethnic Group | Unknown | + + + Author + + + | Author | [facility] | | | and [place] | + + + | Organization | [facility] | | | and [place] | + + + | Address | Unknown | + + + | Phone | Unavailable | + + + Support + + + + + | Name | Relationship | Address | Phone | + + + + + | Johnson Flowers | ECON | [address] | | | | | [place] | | | | | [address] | | + + + + + Care Team Providers + +------+ + | Care Stitcher Feeder Name | Role | Phone | + [...] [place] | | | | | [place], [place] | [address] | | | | | [address] | [phone] | | | | | [phone] | | | +--------+ + + + [...] [place], | | | | | | [place] [address] | | | | | | [phone] | | | | | | | [...] 1.00 m/s | | | MV Dec [place]: 2.61 m/s2 MV DecT: 274.46 ms MV E Rodrigue: 0.71 | | | m/s MV E/A Ratio: 0.71 MV PHT: 79.59 ms MVA By PHT: 2.76 | | | cm2 Septal e': 0.04 m/s Septal E/e': 16.10 Lateral e': | | | 0.07 m/s Lateral E/e': 9.86 Underground Mine Machinery Mechanic: NATALIE Authenticated by: | | | ADOLPH [...] | 4.21 cmLVPWd: 1.32 cmLVOT Area: 3.89 [id number] Diam: 2.22 cm%FS: 28.88 %EF(Teich): | | [...] mlLAESV Index (A-L): 22.56 ml/m2LAAs A2C: 17.44 [id number] A-L A2C: 48.26 mlLALs | | A2C: 5.35 cmLAAs A4C: 18.51 [id number] A-L A4C: 53.52 mlLALs A4C: 5.43 cmRAAs: | | 14.80 ax3AFVEC A-L: 35.75 mlRAESV MOD: 35.14 mlRALs: 5.20 cmTAPSE: 2.96 cmAV | | maxP.16 mmHgAV meanP.10 mmHgAV Vmax: 2.74 m/Nicanor Vmean: 2.11 m/Nicanor VTI: | | 66.30 cmAVA Vmax: 1.13 cm2AVA (VTI): 1.24 ni7BUUY maxP.55 mmHgLVOT meanPG: | | 1.26 mmHgLVSI Dopp: 36.38 ml/m2LVSV Dopp: 82.59 mlLVOT Vmax: 0.79 m/sLVOT Vmean: | | 0.52 m/sLVOT VTI: 21.23 cmMV A Rodrigue: 1.00 m/sMV Dec [place]: 2.61 m/s2MV DecT: | | 274.46 msMV E Rodrigue: 0.71 m/sMV E/A Ratio: 0.71MV PHT: 79.59 msMVA By PHT: 2.76 | | qg3Tfbwvp e': 0.04 m/sSeptal E/e': 16.10Lateral e': 0.07 m/sLateral E/e': 9.86 | | Underground Mine Machinery Mechanic: DHAuthenticated by: Vane CORDOVA Date/Time: 02-14-2018 18:15:1 [...] A Rodrigue: 1.00 m/s | |MV Dec [place]: 2.61 m/s2 | |MV DecT: 274.46 ms | |MV E Rodrigue: 0.71 m/s | |MV E/A Ratio: 0.71 | |MV PHT: 79.59 ms | |MVA By PHT: 2.76 cm2 | |Septal e': 0.04 m/s | |Septal E/e': 16.10 | |Lateral e': 0.07 m/s | |Lateral E/e': 9.86 | | | |Underground Mine Machinery Mechanic: DH | |Authenticated by: ADOLPH LEGGETT MD [...]
--- OUTSIDE RECORDS SUMMARY | ~2019-10-04 | XMS | Encounter Summary ---
Demographics + + + | Address | [address] | | | [place] [address] | + + + | Home Phone | | + + + | Preferred Language | Unknown | + + + | Marital Status | | + + + | Holiness Affiliation | Unknown | + + + | Race | Unknown | + + + | Ethnic Group | Unknown | + + + Author + + + | Author | [facility] | | | and [place] | + + + | Organization | [facility] | | | and [place] | + + + | Address | Unknown | + + + | Phone | Unavailable | + + + Support + + + + + | Name | Relationship | Address | Phone | + + + + + | Johnson Flowers | ECON | [address] | | | | | [place] | | | | | [address] | | + + + + + Care Team Providers + +------+ + | Care Manager Wind Name | Role | Phone | + [...] + + | 03/26/ | Telephone | [facility] | Radha Sanchez | Medication Question | | 2018 | | CARDIOLOGY [place] | [address] | | | | | [address] | [address] | | | | | [address] [place] | [place] [address] | | | | | [address] | [phone] | | | | | [phone] | | | +--------+ + + + [...] | | | | | | [place] [address] | | | | | | [phone] | | | | | | | | +--------+---------+ + + + documented as of this encounter Visit Diagnoses Not on filedocumented in this encounter"
--- OUTSIDE RECORDS SUMMARY | ~2019-10-04 | XMS | Clinical Summary ---
Demographics + + + | Address | [address] | | | [place] [address] | + + + | Home Phone [...] + | Johnson Flowers | ECON | [address] | | | | | [place] | | | | | [address] | | + + + + + Care Team Providers + +------+ + | Care Mobile Home Lot Utility Worker Name | Role | Phone | [...] + + | Overview: Eliquis 5 mg BID:[id number] VASC score 3 ( age, HTN) | [...] | | | | | | [place] [address] | | | | | | [phone] | | | | | | | [...] | [employer] | MODA | [id number] | | [phone] | | Medica | [...] Person | Self | [birth year] | [address] | | | al/[place] | | 1946 | [phone] | [place] | | | may | | | 2 (Home) | [address] | + +--------+ +--------+ + + Advance Directives + + + + + | Type | Date Recorded | Patient | Explanation | | | | Portfolio Administrator | | + + + + + | Power of | | | | | Material Control Manager | | | | + + + + + | Advance | | | | | Directive | | | | + + + + +
--- OUTSIDE RECORDS SUMMARY | ~2019-10-04 | XMS | Encounter Summary ---
Demographics + + + | Address | [address] | | | [place] [address] | + + + | Home Phone [...] + | Johnson Flowers | ECON | [address] | | | | | [place] | | | | | [address] | | + + + + + Care Team Providers + +------+ + | Care Rhit Name | Role | Phone | + [...] [place] | | | | | | [address] | [address] Phone: | | | | | | Phone: | [phone] | | | | | | [phone] | Fax: | | | | | | Fax: | [phone] | | | | | | [phone] | | +--------+--------+ + + + + Encounter Details +--------+---------+ + + + | Date | Type | Department | Care Team | Description | +--------+---------+ + + + | 03/25/ | Office | [facility] | Radha Sanchez | Paroxysmal atrial | | 2019 | Visit | CARDIOLOGY [place] | [address] | fibrillation (HCC) | | | | [address] | [address] | (Primary Dx); Aortic | | | | [address] | [place] [address] | stenosis, moderate; | | | | [place] | [phone] | Essential | | | | [address] | | hypertension; Mixed | | | | [phone] | | hyperlipidemia; Long | | | [...] December [address] Leggett's documentation. 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 Low voltage QRS,Rate 57 bpm, HI 17 0 ms, QRS 84 ms, QTC 432 ms . tracing personally reviewed by me EK08/27/2018: Normal sinus rhythm, normal EKG, rate 61 bpm, HI 152 ms, QRS 88 ms, QTC 434 ms, tracing personally reviewed by me Addendum EK08/12/2019: Normal sinus rhythm, normal EKG, ongoing low voltage QRS to limb leads, except lead I, and V1, and lateral leads. Rate 61 bpm, HI 158 ms, QRS 82 ms, QTC 428 [...] 3. Essential hypertension 4. 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 Pedal edema [...] contain inadvertent rec ognition errors. [facility] 03/25/2019 docum ented in this [...] | | | | | | [place] [address] | | | | | | [phone] | | | | | | | [...] | Mixed hyperlipidemia | + + | assisted current use of anticoagulant Encounter for long-term (current) use of | | anticoagulants | + + | Pedal edema Edema | + + | Screening for iron deficiency anemia | + + | Screening for thyroid disorder | + + documented in this encounter
--- OUTSIDE RECORDS SUMMARY | ~2019-10-04 | XMS | Clinical Summary ---
Demographics + + + | Address | [address] | | | [place] [address] | + + + | Home Phone | | + + + | Preferred Language | Unknown | + + + | Marital Status | | + + + | Hoahaoism Affiliation | Unknown | + + + | Race | Unknown | + + + | Ethnic Group | Unknown | + + + Author + + + | Author | [facility] (Historical as of | | | 01-12-19) | + + + | Organization | [facility] (Historical as of | | | 01-12-19) | + + + | Address | Unknown | + + + | Phone | Unavailable | + + + Support + + + + + | Name | Relationship | Address | Phone | + + + + + | Johnson Roberts | ECON | [address] | | | | | [place] | | | | | [address] | | + + + + + Care Team Providers + +------+ + | Care Non Clinical Advisor Name | Role | Phone | + [...] + + | Overview: Eliquis 5 mg BID:[id number] VASC score 3 ( age, HTN) | [...] [place] | [place] - | [id number] | Medica | | | | | [...] +--------+-------+ + | MEDICAID | [place] | [id number] | | | [address] | | | N | | | | [place] | | | TOM | | | | [address] | | | SHREDDING SPECIALIST | | | | | + [...] | Self | [birth year] | Home: | [address] | | | al/[place] | | 1946 | [phone] [place] | | | may | | | [phone] | [address] | + +--------+ +--------+ + +
--- OUTSIDE RECORDS SUMMARY | ~2019-10-04 | XMS | Encounter Summary ---
Demographics + + + | Address | [address] | | | [place] [address] | + + + | Home Phone | | + + + | Preferred Language | Unknown | + + + | Marital Status | | + + + | Congregation Affiliation | Unknown | + + + [...] + | Johnson Flowers | ECON | [address] | | | | | [place] | | | | | [address] | | + + + + + Care Team Providers + +------+ + | Care Location Director Name | Role | Phone | + +------+ + PCP | Unavailable | + +------+ + Encounter Details +--------+ + + + + | Date | Type | Department | Care Team | Description | +--------+ + + + + | 05/13/ | Hospital | [facility] | | | | 1998 - | Encounter | MED CTR OP REHAB | | | | | | [address] | | | | 03/10/ | | [place] [address] | | | | 1999 | | [phone] | | | +--------+ + + + [...] | | | | | | [place] [address] | | | | | | [phone] | | | | | | | | +--------+---------+ + + + documented as of this encounter Visit Diagnoses Not on filedocumented in this encounter"
--- OUTSIDE RECORDS SUMMARY | ~2019-10-04 | XMS | Encounter Summary ---
Demographics + + + | Address | [address] | | | [place] [address] | + + + | Home Phone | | + + + | Preferred Language | Unknown | + + + | Marital Status | | + + + | Sabianism Affiliation | Unknown | + + + | Race | Unknown | + + + | Ethnic Group | Unknown | + + + Author + + + | Author | [facility] | | | and [place] | + + + | Organization | [facility] | | | and [place] | + + + | Address | Unknown | + + + | Phone | Unavailable | + + + Support + + + + + | Name | Relationship | Address | Phone | + + + + + | Johnson Flowers | ECON | [address] | | | | | [place] | | | | | [address] | | + + + + + Care Team Providers + +------+ + | Care Brand Marketing Specialist Name | Role | Phone | + [...] [place] | | | | | [place], [place] | [address] | | | | | [address] | [phone] | | | | | [phone] | | | +--------+ + + + [...] | | | | | | [place] [address] | | | | | | [phone] | | | | | | | [...] 1.00 m/s | | | MV Dec Pratt: 2.61 m/s2 MV DecT: 274.46 ms MV E Rodrigue: 0.71 | | | m/s MV E/A Ratio: 0.71 MV PHT: 79.59 ms MVA By PHT: 2.76 | | | cm2 Septal e': 0.04 m/s Septal E/e': 16.10 Lateral e': | | | 0.07 m/s Lateral E/e': 9.86 Insulation Extruder Operator: NATALIE Authenticated by: | | | ADOLPH [...] | 4.21 cmLVPWd: 1.32 cmLVOT Area: 3.89 ur6OAZA Diam: 2.22 cm%FS: 28.88 %EF(Teich): | | [...] mlLAESV Index (A-L): 22.56 ml/m2LAAs A2C: 17.44 qn2TLXTH A-L A2C: 48.26 mlLALs | | A2C: 5.35 cmLAAs A4C: 18.51 wl9CNELU A-L A4C: 53.52 mlLALs A4C: 5.43 cmRAAs: | | 14.80 sv8RTULG A-L: 35.75 mlRAESV MOD: 35.14 mlRALs: 5.20 cmTAPSE: 2.96 cmAV | | maxP.16 mmHgAV meanP.10 mmHgAV Vmax: 2.74 m/Nicanor Vmean: 2.11 m/Nicanor VTI: | | 66.30 cmAVA Vmax: 1.13 cm2AVA (VTI): 1.24 kx2JUWN maxP.55 mmHgLVOT meanPG: | | 1.26 mmHgLVSI Dopp: 36.38 ml/m2LVSV Dopp: 82.59 mlLVOT Vmax: 0.79 m/sLVOT Vmean: | | 0.52 m/sLVOT VTI: 21.23 cmMV A Rodrigue: 1.00 m/sMV Dec Pratt: 2.61 m/s2MV DecT: | | 274.46 msMV E Rodrigue: 0.71 m/sMV E/A Ratio: 0.71MV PHT: 79.59 msMVA By PHT: 2.76 | | ao8Eghjfm e': 0.04 m/sSeptal E/e': 16.10Lateral e': 0.07 m/sLateral E/e': 9.86 | | Insulation Extruder Operator: DHAuthenticated by: Vane CORDOVA Date/Time: 02-14-2018 18:15:1 [...] |LVOT VTI: 21.23 cm | |MV A Ordrigue: 1.00 m/s | |MV Dec Pratt: 2.61 m/s2 | |MV DecT: 274.46 ms | |MV E Rodrigue: 0.71 m/s | |MV E/A Ratio: 0.71 | |MV PHT: 79.59 ms | |MVA By PHT: 2.76 cm2 | |Septal e': 0.04 m/s | |Septal E/e': 16.10 | |Lateral e': 0.07 m/s | |Lateral E/e': 9.86 | | | |Insulation Extruder Operator: DH | |Authenticated by: ADOLPH LEGGETT MD [...]
--- OUTSIDE RECORDS SUMMARY | ~2019-10-04 | XMS | Encounter Summary ---
Demographics + + + | Address | [address] | | | [place] [address] | + + + | Home Phone | | + + + | Preferred Language | Unknown | + + + | Marital Status | | + + + | Advent Affiliation | Unknown | + + + [...] + | Johnson Flowers | ECON | [address] | | | | | [place] | | | | | [address] | | + + + + + Care Team Providers + +------+ + | Care Rip Saw Operator Name | Role | Phone | + +------+ + | Zahra Quevedo | PCP | | + +------+ + Encounter Details +--------+ + + + + | Date | Type | Department | Care Team | Description | +--------+ + + + + | 08/25/ | Orders Only | [facility] | Radha Sanchez | | | 2019 | | CARDIOLOGY [place] | [address] | | | | | [address] | [address] | | | | | [address] | [place] [address] | | | | | [place], [place] | [phone] | | | | | [address] | | | | | | [phone] | | | +--------+ + + + [...] | | | | | | [place] [address] | | | | | | [phone] | | | | | | | | +--------+---------+ + + + documented as of this encounter Visit Diagnoses Not on filedocumented in this encounter"
--- OUTSIDE RECORDS SUMMARY | ~2019-10-04 | XMS | Encounter Summary ---
Demographics + + + | Address | [address] | | | [place] [address] | + + + | Home Phone | | + + + | Preferred Language | Unknown | + + + | Marital Status | | + + + | Restorationism Affiliation | Unknown | + + + | Race | Unknown | + + + | Ethnic Group | Unknown | + + + Author + + + | Author | [facility] | | | and [place] | + + + | Organization | [facility] | | | and [place] | + + + | Address | Unknown | + + + | Phone | Unavailable | + + + Support + + + + + | Name | Relationship | Address | Phone | + + + + + | Johnson Flowers | ECON | [address] | | | | | [place] | | | | | [address] | | + + + + + Care Team Providers + +------+ + | Care Ems Educator Name | Role | Phone | + +------+ + PCP | Unavailable | + +------+ + Encounter Details +--------+ + + + + | Date | Type | Department | Care Team | Description | +--------+ + + + + | 04/15/ | Hospital | [facility] | | | | 1998 - | Encounter | MED CTR GENERIC IP | | | | | | CONV DEPT [address] | | | | 04/16/ | | [address] [place], | | | | 1998 | | [place] [address] | | | | | | [phone] | | | +--------+ + + + [...] | | | | | | [place] [address] | | | | | | [phone] | | | | | | | | +--------+---------+ + + + documented as of this encounter Visit Diagnoses Not on filedocumented in this encounter"
--- OUTSIDE RECORDS SUMMARY | ~2019-10-04 | XMS | Encounter Summary ---
Demographics + + + | Address | [address] | | | [place] [address] | + + + | Home Phone [...] + | Johnson Flowers | ECON | [address] | | | | | [place] | | | | | [address] | | + + + + + Care Team Providers + +------+ + | Care Freight Flow Sales Leader Name | Role | Phone | + +------+ + | Zahra Quevedo | PCP | | + +------+ + Encounter Details +--------+ + + + + | Date | Type | Department | Care Team | Description | +--------+ + + + + | 01/11/ | Orders Only | [facility] | Radha Sanchez | Paroxysmal atrial | | 2019 | | CARDIOLOGY [place] | [address] | fibrillation (HCC); | | | | [address] | [address] | Localized edema; | | | | [address] | [place] [address] | Essential (primary) | | | | [place], [place] | [phone] | hypertension; Mixed | | | | [address] | | hyperlipidemia; Long | | | | [phone] | | term current use of | [...] | | | | | | [place] [address] | | | | | | [phone] | | | | | | | | +--------+---------+ + + + + +------+--------+ + + | Name | Type | Priori | Associated Diagnoses | Order Schedule | | | | ty | | | + +------+--------+ + + | CBC 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
--- OUTSIDE RECORDS SUMMARY | ~2019-10-04 | XMS | Encounter Summary ---
Demographics + + + | Address | [address] | | | [place] [address] | + + + | Home Phone [...] + | Johnson Flowers | ECON | [address] | | | | | [place] | | | | | [address] | | + + + + + Care Team Providers + +------+ + | Care Screen Printing Equipment Setter Name | Role | Phone | + [...] + + | 04/17/ | Telephone | [facility] | Radha Sanchez | Medication Question | | 2019 | | CARDIOLOGY [place] | [address] | | | | | [address] | [address] | | | | | [address] | [place] [address] | | | | | [place] | [phone] | | | | | [address] | | | | | | [phone] | | | +--------+ + + + [...] | | | | | | [place] [address] | | | | | | [phone] | | | | | | | | +--------+---------+ + + + documented as of this encounter Visit Diagnoses Not on filedocumented in this encounter"
--- OUTSIDE RECORDS SUMMARY | ~2019-10-04 | XMS | Clinical Summary ---
Demographics + + + | Address | [address] | | | [place] [address] | + + + | Home Phone | | + + + | Preferred Language | Unknown | + + + | Marital Status | | + + + | Pentecostalism Affiliation | Unknown | + + + | Race | Unknown | + + + | Ethnic Group | Unknown | + + + Author + + + | Author | [facility] | | | and [place] | + + + | Organization | [facility] | | | and [place] | + + + | Address | Unknown | + + + | Phone | Unavailable | + + + Support + + + + + | Name | Relationship | Address | Phone | + + + + + | Johnson Flowers | ECON | [address] | | | | | [place] | | | | | [address] | | + + + + + Care Team Providers + +------+ + | Care Hardboard Panel Printer Name | Role | Phone | + [...] + + | Overview: Eliquis 5 mg BID:[id number] VASC score 3 ( age, HTN) | [...] | | | | | | [place] [address] | | | | | | [phone] | | | | | | | [...] | [employer] | MODA | [id number] | | [phone] | | Medica | [...] Person | Self | [birth year] | | [address] | | | al/[place] | | 1946 | [phone] | [place] | | | may | | | 2 (Home) | [address] | + +--------+ +--------+ + + Advance Directives + + + + + | Type | Date Recorded | Patient | Explanation | | | | Sterile Processing Technician | | + + + + + | Power of | | | | | Ed Case Manager | | | | + + + + + | Advance | | | | | Directive | | | | + + + + +
--- OUTSIDE RECORDS SUMMARY | ~2019-10-04 | XMS | Encounter Summary ---
Demographics + + + | Address | [address] | | | [place] [address] | + + + | Home Phone | | + + + | Preferred Language | Unknown | + + + | Marital Status | | + + + | Presybeterian Affiliation | Unknown | + + + | Race | Unknown | + + + | Ethnic Group | Unknown | + + + Author + + + | Author | [facility] | | | and [place] | + + + | Organization | [facility] | | | and [place] | + + + | Address | Unknown | + + + | Phone | Unavailable | + + + Support + + + + + | Name | Relationship | Address | Phone | + + + + + | Johnson Flowers | ECON | [address] | | | | | [place] | | | | | [address] | | + + + + + Care Team Providers + +------+ + | Care Sound Recordist Name | Role | Phone | + +------+ + PCP | Unavailable | + +------+ + Encounter Details +--------+ + + + + | Date | Type | Department | Care Team | Description | +--------+ + + + + | 10/05/ | Hospital | [facility] | Rick Gamez | Open fracture of | | 1997 - | Encounter | [facility] [address] | [address] | middle or proximal | | | | [address] | [place] [address] | phalanx or phalanges | | 10/06/ | | [place], [place] | [phone] | of hand | | 1997 | | [address] | | | | | | [phone] | | | +--------+ + + + [...] | | | | | | [place] [address] | | | | | | [phone] | | | | | | | | +--------+---------+ + + + documented as of this encounter Visit Diagnoses + + | Diagnosis | + + | Open fracture of middle or proximal phalanx or phalanges of hand | + + documented in this encounter"
--- OUTSIDE RECORDS SUMMARY | ~2019-10-04 | XMS | Encounter Summary ---
Demographics + + + | Address | [address] | | | [place] [address] | + + + | Home Phone | | + + + | Preferred Language | Unknown | + + + | Marital Status | | + + + | Gnosticist Affiliation | Unknown | + + + | Race | Unknown | + + + | Ethnic Group | Unknown | + + + Author + + + | Author | [facility] | | | and [place] | + + + | Organization | [facility] | | | and [place] | + + + | Address | Unknown | + + + | Phone | Unavailable | + + + Support + + + + + | Name | Relationship | Address | Phone | + + + + + | Johnson Flowers | ECON | [address] | | | | | [place] | | | | | [address] | | + + + + + Care Team Providers + +------+ + | Care Winchman/Crane Operator Name | Role | Phone | + +------+ + | Zahra Quevedo | PCP | | + +------+ + Encounter Details +--------+ + + + + | Date | Type | Department | Care Team | Description | +--------+ + + + + | 03/26/ | Orders Only | [facility] | Radha Sanchez | Mixed hyperlipidemia | | 2019 | | CARDIOLOGY [place] | [address] | (Primary Dx) | | | | [address] | [address] | | | | | [address] [place], [place] | [place] [address] | | | | | [address] | [phone] | | | | | [phone] | | | +--------+ + + + [...] | | | | | | [place] [address] | | | | | | [phone] | | | | | | | | +--------+---------+ + + + documented as of this encounter Visit Diagnoses + + | Diagnosis | + + | Mixed hyperlipidemia - Primary | + + documented in this encounter"
--- OUTSIDE RECORDS SUMMARY | ~2019-10-04 | XMS | Encounter Summary ---
Demographics + + + | Address | [address] | | | [place] [address] | + + + | Home Phone | | + + + | Preferred Language | Unknown | + + + | Marital Status | | + + + | Restorationism Affiliation | Unknown | + + + | Race | Unknown | + + + | Ethnic Group | Unknown | + + + Author + + + | Author | [facility] | | | and [place] | + + + | Organization | [facility] | | | and [place] | + + + | Address | Unknown | + + + | Phone | Unavailable | + + + Support + + + + + | Name | Relationship | Address | Phone | + + + + + | Johnson Flowers | ECON | [address] | | | | | [place] | | | | | [address] | | + + + + + Care Team Providers + +------+ + | Care Ems Instructor Name | Role | Phone | + [...] + + | 08/14/ | Telephone | [facility] | Radha Sanchez | Testing | | 2020 | | CARDIOLOGY [place] | [address] | | | | | [address] [facility] | [address] | | | | | [address] | [place] [address] | | | | | [place] | [phone] | | | | | [address] | | | | | | [phone] | | | +--------+ + + + [...] | | | | | | [place] [address] | | | | | | [phone] | | | | | | | | +--------+---------+ + + + documented as of this encounter Visit Diagnoses Not on filedocumented in this encounter"
--- OUTSIDE RECORDS SUMMARY | ~2019-10-04 | XMS | Encounter Summary ---
Demographics + + + | Address | [address] | | | [place] [address] | + + + | Home Phone | | + + + | Preferred Language | Unknown | + + + | Marital Status | | + + + | Taoism Affiliation | Unknown | + + + | Race | Unknown | + + + | Ethnic Group | Unknown | + + + Author + + + | Author | [facility] | | | and [place] | + + + | Organization | [facility] | | | and [place] | + + + | Address | Unknown | + + + | Phone | Unavailable | + + + Support + + + + + | Name | Relationship | Address | Phone | + + + + + | Johnson Flowers | ECON | [address] | | | | | [place] | | | | | [address] | | + + + + + Care Team Providers + +------+ + | Care Wheel Inspector Name | Role | Phone | + +------+ + | Zahra Quevedo | PCP | | + +------+ + Encounter Details +--------+ + + + + | Date | Type | Department | Care Team | Description | +--------+ + + + + | 03/26/ | Orders Only | [facility] | Radha Sanchez | Mixed hyperlipidemia | | 2019 | | CARDIOLOGY [place] | [address] | (Primary Dx) | | | | [address] | [address] | | | | | [address] [place], [place] | [place] [address] | | | | | [address] | [phone] | | | | | [phone] | | | +--------+ + + + [...] | | | | | | [place] [address] | | | | | | [phone] | | | | | | | | +--------+---------+ + + + documented as of this encounter Visit Diagnoses + + | Diagnosis | + + | Mixed hyperlipidemia - Primary | + + documented in this encounter"
--- OUTSIDE RECORDS SUMMARY | ~2019-10-04 | XMS | Encounter Summary ---
Demographics + + + | Address | [address] | | | [place] [address] | + + + | Home Phone | | + + + | Preferred Language | Unknown | + + + | Marital Status | | + + + | Shinto Affiliation | Unknown | + + + [...] + | Johnson Flowers | ECON | [address] | | | | | [place] | | | | | [address] | | + + + + + Care Team Providers + +------+ + | Care Manager Of Tax Name | Role | Phone | + +------+ + PCP | Unavailable | + +------+ + Encounter Details +--------+ + + + + | Date | Type | Department | Care Team | Description | +--------+ + + + + | 05/13/ | Hospital | [facility] | | | | 1998 - | Encounter | MED CTR OP REHAB | | | | | | [address] | | | | 03/10/ | | [place] [address] | | | | 1999 | | [phone] | | | +--------+ + + + [...] | | | | | | [place] [address] | | | | | | [phone] | | | | | | | | +--------+---------+ + + + documented as of this encounter Visit Diagnoses Not on filedocumented in this encounter"
--- OUTSIDE RECORDS SUMMARY | ~2019-10-04 | XMS | Encounter Summary ---
Demographics + + + | Address | [address] | | | [place] [address] | + + + | Home Phone | | + + + | Preferred Language | Unknown | + + + | Marital Status | | + + + | Zoroastrianism Affiliation | Unknown | + + + | Race | Unknown | + + + | Ethnic Group | Unknown | + + + Author + + + | Author | [facility] | | | and [place] | + + + | Organization | [facility] | | | and [place] | + + + | Address | Unknown | + + + | Phone | Unavailable | + + + Support + + + + + | Name | Relationship | Address | Phone | + + + + + | Johnson Flowers | ECON | [address] | | | | | [place] | | | | | [address] | | + + + + + Care Team Providers + +------+ + | Care Route Specialist Name | Role | Phone | [...] + + | 03/25/ | Telephone | [facility] | Radha Sanchez | Medication Question | | 2019 | | CARDIOLOGY [place] | [address] | | | | | [address] | [address] | | | | | [address] | [place] [address] | | | | | [place] | [phone] | | | | | [address] | | | | | | [phone] | | | +--------+ + + + [...] | | | | | | [place] [address] | | | | | | [phone] | | | | | | | | +--------+---------+ + + + documented as of this encounter Visit Diagnoses Not on filedocumented in this encounter"
--- OUTSIDE RECORDS SUMMARY | ~2019-10-04 | XMS | Encounter Summary ---
Demographics + + + | Address | [address] | | | [place] [address] | + + + | Home Phone | | + + + | Preferred Language | Unknown | + + + | Marital Status | | + + + | Holiness Affiliation | Unknown | + + + | Race | Unknown | + + + | Ethnic Group | Unknown | + + + Author + + + | Author | [facility] | | | and [place] | + + + | Organization | [facility] | | | and [place] | + + + | Address | Unknown | + + + | Phone | Unavailable | + + + Support + + + + + | Name | Relationship | Address | Phone | + + + + + | Johnson Flowers | ECON | [address] | | | | | [place] | | | | | [address] | | + + + + + Care Team Providers + +------+ + | Care Junior Programmer Name | Role | Phone | + +------+ + PCP | Unavailable | + +------+ + Encounter Details +--------+ + + + + | Date | Type | Department | Care Team | Description | +--------+ + + + + | 10/05/ | Hospital | [facility] | Rick Gamez | Open fracture of | | 1997 - | Encounter | [facility] [address] | [address] | middle or proximal | | | | [address] | [place] [address] | phalanx or phalanges | | 10/06/ | | [place], [place] | [phone] | of hand | | 1997 | | [address] | | | | | | [phone] | | | +--------+ + + + [...] | 2019 | Visit | | MD [address] | | | | | | [place], | | | | | | [place] [address] | | | | | | [phone] | | | | | | | | +--------+---------+ + + + documented as of this encounter Visit Diagnoses + + | Diagnosis | + + | Open fracture of middle or proximal phalanx or phalanges of hand | + + documented in this encounter"
--- OUTSIDE RECORDS SUMMARY | ~2019-10-04 | XMS | Encounter Summary ---
Demographics + + + | Address | [address] | | | [place] [address] | + + + | Home Phone | | + + + | Preferred Language | Unknown | + + + | Marital Status | | + + + | Restorationism Affiliation | Unknown | + + + | Race | Unknown | + + + | Ethnic Group | Unknown | + + + Author + + + | Author | [facility] | | | and [place] | + + + | Organization | [facility] | | | and [place] | + + + | Address | Unknown | + + + | Phone | Unavailable | + + + Support + + + + + | Name | Relationship | Address | Phone | + + + + + | Johnson Flowers | ECON | [address] | | | | | [place] | | | | | [address] | | + + + + + Care Team Providers + +------+ + | Care Finger Cobbler Name | Role | Phone | + [...] + + | 03/25/ | Telephone | [facility] | Radha Sanchez | Medication Question | | 2019 | | CARDIOLOGY [place] | [address] | | | | | [address] | [address] | | | | | [address] | [place] [address] | | | | | [place] | [phone] | | | | | [address] | | | | | | [phone] | | | +--------+ + + + [...] | | | | | | [place] [address] | | | | | | [phone] | | | | | | | | +--------+---------+ + + + documented as of this encounter Visit Diagnoses Not on filedocumented in this encounter"
--- OUTSIDE RECORDS SUMMARY | ~2019-10-04 | XMS | Encounter Summary ---
Demographics + + + | Address | [address] | | | [place] [address] | + + + | Home Phone | | + + + | Preferred Language | Unknown | + + + | Marital Status | | + + + | Jain Affiliation | Unknown | + + + | Race | Unknown | + + + | Ethnic Group | Unknown | + + + Author + + + | Author | [facility] | | | and [place] | + + + | Organization | [facility] | | | and [place] | + + + | Address | Unknown | + + + | Phone | Unavailable | + + + Support + + + + + | Name | Relationship | Address | Phone | + + + + + | Johnson Flowers | ECON | [address] | | | | | [place] | | | | | [address] | | + + + + + Care Team Providers + +------+ + | Care Distillation Operator Helper Name | Role | Phone | [...] Provider Unknown | | | | | [place], [place] | [phone] | | | | | [address] | | | | | | [phone] | | | +--------+ + + + [...] | | | | | | [place] [address] | | | | | | [phone] | | | | | | | | +--------+---------+ + + + documented as of this encounter Visit Diagnoses Not on filedocumented in this encounter"
--- OUTSIDE RECORDS SUMMARY | ~2019-10-04 | XMS | Encounter Summary ---
Demographics + + + | Address | [address] | | | [place] [address] | + + + | Home Phone | | + + + | Preferred Language | Unknown | + + + | Marital Status | | + + + | Jehovah'S Witness Affiliation | Unknown | + + + | Race | Unknown | + + + | Ethnic Group | Unknown | + + + Author + + + | Author | [facility] | | | and [place] | + + + | Organization | [facility] | | | and [place] | + + + | Address | Unknown | + + + | Phone | Unavailable | + + + Support + + + + + | Name | Relationship | Address | Phone | + + + + + | Johnson Flowers | ECON | [address] | | | | | [place] | | | | | [address] | | + + + + + Care Team Providers + +------+ + | Care Commutator V Ring Assembler Name | Role | Phone | + +------+ + PCP | Unavailable | + +------+ + Encounter Details +--------+ + + + + | Date | Type | Department | Care Team | Description | +--------+ + + + + | 04/15/ | Hospital | [facility] | | | | 1998 - | Encounter | MED CTR GENERIC IP | | | | | | CONV DEPT [address] | | | | 04/16/ | | [place], | | | | 2000 | | [place] [address] | | | | | | [phone] | | | +--------+ + + + [...] | | | | | | [place] [address] | | | | | | [phone] | | | | | | | | +--------+---------+ + + + documented as of this encounter Visit Diagnoses Not on filedocumented in this encounter"
--- OUTSIDE RECORDS SUMMARY | ~2019-10-04 | XMS | Encounter Summary ---
Demographics + + + | Address | [address] | | | [place] [address] | + + + | Home Phone | | + + + | Preferred Language | Unknown | + + + | Marital Status | | + + + | Alevism Affiliation | Unknown | + + + [...] + | Johnson Flowers | ECON | [address] | | | | | [place] | | | | | [address] | | + + + + + Care Team Providers + +------+ + | Care It Auditor Name | Role | Phone | + [...] Provider Unknown | | | | | [place], [place] | [phone] | | | | | [address] | | | | | | [phone] | | | +--------+ + + + [...] | | | | | | [place] [address] | | | | | | [phone] | | | | | | | | +--------+---------+ + + + documented as of this encounter Visit Diagnoses Not on filedocumented in this encounter"
--- OUTSIDE RECORDS SUMMARY | ~2019-10-04 | XMS | Encounter Summary ---
Demographics + + + | Address | [address] | | | [place] [address] | + + + | Home Phone [...] + | Johnson Flowers | ECON | [address] | | | | | [place] | | | | | [address] | | + + + + + Care Team Providers + +------+ + | Care Senior Care Manager Name | Role | Phone | [...] + + | 04/17/ | Telephone | [facility] | Radha Sanchez | Medication Question | | 2019 | | CARDIOLOGY [place] | [address] | | | | | [address] | [address] | | | | | [address] | [place] [address] | | | | | [place] | [phone] | | | | | [address] | | | | | | [phone] | | | +--------+ + + + [...] | | | | | | [place] [address] | | | | | | [phone] | | | | | | | | +--------+---------+ + + + documented as of this encounter Visit Diagnoses Not on filedocumented in this encounter"
--- OUTSIDE RECORDS SUMMARY | ~2019-10-04 | XMS | Encounter Summary ---
Demographics + + + | Address | [address] | | | [place] [address] | + + + | Home Phone | | + + + | Preferred Language | Unknown | + + + | Marital Status | | + + + | Mormonism Affiliation | Unknown | + + + | Race | Unknown | + + + | Ethnic Group | Unknown | + + + Author + + + | Author | [facility] | | | and [place] | + + + | Organization | [facility] | | | and [place] | + + + | Address | Unknown | + + + | Phone | Unavailable | + + + Support + + + + + | Name | Relationship | Address | Phone | + + + + + | Johnson Flowers | ECON | [address] | | | | | [place] | | | | | [address] | | + + + + + Care Team Providers + +------+ + | Care Pest Control Service Sales Agent Name | Role | Phone | + +------+ + PCP | Unavailable | + +------+ + Encounter Details +--------+ + + + + | Date | Type | Department | Care Team | Description | +--------+ + + + + | 10/05/ | Hospital | [facility] | Rick Gamez | Open fracture of | | 1997 - | Encounter | [facility] [address] | [address] | middle or proximal | | | | [address] | [place] [address] | phalanx or phalanges | | 10/06/ | | [place], [place] | [phone] | of hand | | 1997 | | [address] | | | | | | [phone] | | | +--------+ + + + [...] | | | | | | [place] [address] | | | | | | [phone] | | | | | | | | +--------+---------+ + + + documented as of this encounter Visit Diagnoses + + | Diagnosis | + + | Open fracture of middle or proximal phalanx or phalanges of hand | + + documented in this encounter"
--- OUTSIDE RECORDS SUMMARY | ~2019-10-04 | XMS | Encounter Summary ---
Demographics + + + | Address | [address] | | | [place] [address] | + + + | Home Phone [...] + | Johnson Flowers | ECON | [address] | | | | | [place] | | | | | [address] | | + + + + + Care Team Providers + +------+ + | Care Convict Guard Name | Role | Phone | + +------+ + | Zahra Quevedo | PCP | | + +------+ + Encounter Details +--------+ + + + + | Date | Type | Department | Care Team | Description | +--------+ + + + + | 03/26/ | Orders Only | [facility] | Radha Sanchez | Mixed hyperlipidemia | | 2019 | | CARDIOLOGY [place] | [address] | (Primary Dx) | | | | [address] | [address] | | | | | [address] [place], [place] | [place] [address] | | | | | [address] | [phone] | | | | | [phone] | | | +--------+ + + + [...] | | | | | | [place] [address] | | | | | | [phone] | | | | | | | | +--------+---------+ + + + documented as of this encounter Visit Diagnoses + + | Diagnosis | + + | Mixed hyperlipidemia - Primary | + + documented in this encounter"
--- OUTSIDE RECORDS SUMMARY | ~2019-10-04 | XMS | Encounter Summary ---
Demographics + + + | Address | [address] | | | [place] [address] | + + + | Home Phone | | + + + | Preferred Language | Unknown | + + + | Marital Status | | + + + | Religion Affiliation | Unknown | + + + [...] + | Johnson Flowers | ECON | [address] | | | | | [place] | | | | | [address] | | + + + + + Care Team Providers + +------+ + | Care Gusset Stitcher Name | Role | Phone | + +------+ + | Zahra Quevedo | PCP | | + +------+ + Encounter Details +--------+ + + + + | Date | Type | Department | Care Team | Description | +--------+ + + + + | 08/25/ | Orders Only | [facility] | Radha Sanchez | | | 2019 | | CARDIOLOGY [place] | [address] | | | | | [address] | [address] | | | | | [address] | [place] [address] | | | | | [place], [place] | [phone] | | | | | [address] | | | | | | [phone] | | | +--------+ + + + [...] | | | | | | [place] [address] | | | | | | [phone] | | | | | | | | +--------+---------+ + + + documented as of this encounter Visit Diagnoses Not on filedocumented in this encounter"
--- OUTSIDE RECORDS SUMMARY | ~2019-10-04 | XMS | Encounter Summary ---
Demographics + + + | Address | [address] | | | [place] [address] | + + + | Home Phone [...] + | Johnson Flowers | ECON | [address] | | | | | [place] | | | | | [address] | | + + + + + Care Team Providers + +------+ + | Care Camouflage Assembler Name | Role | Phone | [...] [place] | | | | | | [address] | [address] Phone: | | | | | | Phone: | [phone] | | | | | | [phone] | Fax: | | | | | | Fax: | [phone] | | | | | | [phone] | | +--------+--------+ + + + + Encounter Details +--------+---------+ + + + | Date | Type | Department | Care Team | Description | +--------+---------+ + + + | 03/25/ | Office | [facility] | Radha Sanchez | Paroxysmal atrial | | 2019 | Visit | CARDIOLOGY [place] | [address] | fibrillation (HCC) | | | | [address] | [address] | (Primary Dx); Aortic | | | | [address] | [place] [address] | stenosis, moderate; | | | | [place] | [phone] | Essential | | | | [address] | | hypertension; Mixed | | | | [phone] | | hyperlipidemia; Long | | | [...] December [address] Leggett's documentation. 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 Low voltage QRS,Rate 57 bpm, OR 17 0 ms, QRS 84 ms, QTC 432 ms . tracing personally reviewed by me EK08/27/2018: Normal sinus rhythm, normal EKG, rate 61 bpm, OR 152 ms, QRS 88 ms, QTC 434 ms, tracing personally reviewed by me Addendum EK08/12/2019: Normal sinus rhythm, normal EKG, ongoing low voltage QRS to limb leads, except lead I, and V1, and lateral leads. Rate 61 bpm, OR 158 ms, QRS 82 ms, QTC 428 [...] Essential hypertension 4. 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 [...] contain inadvertent rec ognition errors. Willie REDMOND [facility] Cardiology 03/25/2019 docum ented in this [...] | | | | | | [place] [address] | | | | | | [phone] | | | | | | | [...] | Mixed hyperlipidemia | + + | prison current use of anticoagulant Encounter for long-term (current) use of | | anticoagulants | + + | Pedal edema Edema | + + | Screening for iron deficiency anemia | + + | Screening for thyroid disorder | + + documented in this encounter
--- OUTSIDE RECORDS SUMMARY | ~2019-10-04 | XMS | Encounter Summary ---
Demographics + + + | Address | [address] | | | [place] [address] | + + + | Home Phone | | + + + | Preferred Language | Unknown | + + + | Marital Status | | + + + | Druze Affiliation | Unknown | + + + | Race | Unknown | + + + | Ethnic Group | Unknown | + + + Author + + + | Author | [facility] | | | and [place] | + + + | Organization | [facility] | | | and [place] | + + + | Address | Unknown | + + + | Phone | Unavailable | + + + Support + + + + + | Name | Relationship | Address | Phone | + + + + + | Johnson Flowers | ECON | [address] | | | | | [place] | | | | | [address] | | + + + + + Care Team Providers + +------+ + | Care Patient Services Manager Name | Role | Phone | [...] + + | 03/25/ | Telephone | [facility] | Radha Sanchez | Medication Question | | 2019 | | CARDIOLOGY [place] | [address] | | | | | [address] | [address] | | | | | [address] | [place] [address] | | | | | [place] | [phone] | | | | | [address] | | | | | | [phone] | | | +--------+ + + + [...] | | | | | | [place] [address] | | | | | | [phone] | | | | | | | | +--------+---------+ + + + documented as of this encounter Visit Diagnoses Not on filedocumented in this encounter"
--- OUTSIDE RECORDS SUMMARY | ~2019-10-04 | XMS | Encounter Summary ---
Demographics + + + | Address | [address] | | | [place] [address] | + + + | Home Phone | | + + + | Preferred Language | Unknown | + + + | Marital Status | | + + + | Anabaptism Affiliation | Unknown | + + + | Race | Unknown | + + + | Ethnic Group | Unknown | + + + Author + + + | Author | [facility] | | | and [place] | + + + | Organization | [facility] | | | and [place] | + + + | Address | Unknown | + + + | Phone | Unavailable | + + + Support + + + + + | Name | Relationship | Address | Phone | + + + + + | Johnson Flowers | ECON | [address] | | | | | [place] | | | | | [address] | | + + + + + Care Team Providers + +------+ + | Care Claims Clerk Name | Role | Phone | + +------+ + | Zahra Quevedo | PCP | | + +------+ + Encounter Details +--------+ + + + + | Date | Type | Department | Care Team | Description | +--------+ + + + + | 08/25/ | Orders Only | [facility] | Radha Sanchez | | | 2019 | | CARDIOLOGY [place] | [address] | | | | | [address] | [address] | | | | | [address] | [place] [address] | | | | | [place], [place] | [phone] | | | | | [address] | | | | | | [phone] | | | +--------+ + + + [...] | | | | | | [place] [address] | | | | | | [phone] | | | | | | | | +--------+---------+ + + + documented as of this encounter Visit Diagnoses Not on filedocumented in this encounter"
--- OUTSIDE RECORDS SUMMARY | ~2019-10-04 | XMS | Encounter Summary ---
Demographics + + + | Address | [address] | | | [place] [address] | + + + | Home Phone | | + + + | Preferred Language | Unknown | + + + | Marital Status | | + + + | Oriental Orthodox Affiliation | Unknown | + + [...] + | Johnson Flowers | ECON | [address] | | | | | [place] | | | | | [address] | | + + + + + Care Team Providers + +------+ + | Care Oleo Hasher And Renderer Name | Role | Phone | + +------+ + | Zahra Quevedo | PCP | | + +------+ + Encounter Details +--------+ + + + + | Date | Type | Department | Care Team | Description | +--------+ + + + + | 01/11/ | Orders Only | [facility] | Radha Sanchez | Paroxysmal atrial | | 2019 | | CARDIOLOGY [place] | [address] | fibrillation (HCC); | | | | [address] | [address] | Localized edema; | | | | [address] | [place] [address] | Essential (primary) | | | | [place], [place] | [phone] | hypertension; Mixed | | | | [address] | | hyperlipidemia; Long | | | | [phone] | | term current use of | [...] | | | | | | [place] [address] | | | | | | [phone] | | | | | | | | +--------+---------+ + + + + +------+--------+ + + | Name | Type | Priori | Associated Diagnoses | Order Schedule | | | | ty | | | + +------+--------+ + + | CBC with | Lab | Routin | ad terminal makeup operator current | Expected: | | Differential | [...] | Mixed hyperlipidemia | + + | ad terminal makeup operator current use of anticoagulant Encounter for long-term (current) use of | | anticoagulants | + + | Encounter for screening for diseases of the blood and blood-forming organs and certain | | disorders involving the immune mechanism | + + | Encounter for screening for other suspected endocrine disorder | + + documented in this encounter"
--- OUTSIDE RECORDS SUMMARY | ~2019-10-04 | XMS | Encounter Summary ---
Demographics + + + | Address | [address] | | | [place] [address] | + + + | Home Phone [...] + | Johnson Flowers | ECON | [address] | | | | | [place] | | | | | [address] | | + + + + + Care Team Providers + +------+ + | Care Inbound Customer Service Agent Name | Role | Phone | [...] + + | 04/17/ | Telephone | [facility] | Radha Sanchez | Medication Question | | 2019 | | CARDIOLOGY [place] | [address] | | | | | [address] | [address] | | | | | [address] | [place] [address] | | | | | [place] | [phone] | | | | | [address] | | | | | | [phone] | | | +--------+ + + + [...] | | | | | | [place] [address] | | | | | | [phone] | | | | | | | | +--------+---------+ + + + documented as of this encounter Visit Diagnoses Not on filedocumented in this encounter"
--- OUTSIDE RECORDS SUMMARY | ~2019-10-04 | XMS | Encounter Summary ---
Demographics + + + | Address | [address] | | | [place] [address] | + + + | Home Phone [...] + | Johnson Flowers | ECON | [address] | | | | | [place] | | | | | [address] | | + + + + + Care Team Providers + +------+ + | Care Women'S Swim Coach Name | Role | Phone | + [...] + + | 04/17/ | Telephone | [facility] | Radha Sanchez | Medication Question | | 2019 | | CARDIOLOGY [place] | [address] | | | | | [address] | [address] | | | | | [address] | [place] [address] | | | | | [place] | [phone] | | | | | [address] | | | | | | [phone] | | | +--------+ + + + [...] | | | | | | [place] [address] | | | | | | [phone] | | | | | | | | +--------+---------+ + + + documented as of this encounter Visit Diagnoses Not on filedocumented in this encounter"
--- OUTSIDE RECORDS SUMMARY | ~2019-10-04 | XMS | Encounter Summary ---
Demographics + + + | Address | [address] | | | [place] [address] | + + + | Home Phone [...] + | Johnson Flowers | ECON | [address] | | | | | [place] | | | | | [address] | | + + + + + Care Team Providers + +------+ + | Care Rigging And Controls Aircraft Mechanic Name | Role | Phone | [...] Provider Unknown | | | | | [place], [place] | [phone] | | | | | [address] | | | | | | [phone] | | | +--------+ + + + [...] | | | | | | [place] [address] | | | | | | [phone] | | | | | | | | +--------+---------+ + + + documented as of this encounter Visit Diagnoses Not on filedocumented in this encounter"
--- OUTSIDE RECORDS SUMMARY | 2019-10-04 16:24 | XMS ---
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 Sheila VISIT COUNT ([address] [facility] TOTAL 3 NOTE: Visits indicate total known visits. ED/C VISIT TRACKING (12 MO.) 10/04/2019 16:21 [facility] TYPE: Emergency COMPLAINT: - SLEEPY 10/01/2019 02:14 [facility] [place] TYPE: Emergency COMPLAINT: - PANIC ATTACK DIAGNOSES: - Anxiety disorder, unspecified - Essential (primary) hypertension - Pure hypercholesterolemia, unspecified - Other senior living (current) drug therapy - Panic disorder [episodic paroxysmal anxiety] 09/10/2019 14:04 [facility] [place] TYPE: Emergency COMPLAINT: - SOB DIAGNOSES: - Anxiety disorder, unspecified - Shortness of breath - Hypertensive heart disease with heart failure - Other senior living (current) drug therapy - Heart failure, unspecified - Pure hypercholesterolemia, unspecified INPATIENT VISIT TRACKING (12 MO.) No inpatient visits to display in this time frame [email or web address]
--- NOTE | 2019-10-04 21:30 | EKG ---
[facility] [address], [place] [address] Signed Normal sinus rhythm Normal ECG When compared with ECG of 10-SEP-2019 14:57, No significant change was found Confirmed by VANITA CANTRELL MD ([id number]) on 10/04/2019 9:30:40 PM Electronically Signed By: VANITA CANTRELL MD 10/04/19 2130 PATIENT NAME: MOSHE ROBERTS Electrocardiogram DATE OF : 41 PHYSICIAN: VANITA CANTRELL MD REPORT #: [id number] REPORT IS CONFIDENTIAL AND NOT TO BE RELEASED WITHOUT AUTHORIZATION
--- NOTE | 2019-10-04 22:08 | NUR ---
PT ADMITTED TO ROOM 121 FROM ED. PT ABLE TO GET SELF OUT OFF THE STRETCHER, AND AMBULATED UNSTEADY TO THE BR WITH STAFF. SPEECH IS NOT CLEAR, CONFUSED BUT ABLE TO STATE WHERE HE WAS.
--- NOTE | 2019-10-04 23:23 | NUR ---
Pt has attempted to climb of bed, he states "I have to go Poop". I have helped the pt to the BSC three times in the last hour.
--- NOTE | 2019-10-04 23:55 | NUR ---
PT ASSESSMENT COMPLETE. PT ALERT AND ORIENTED X 3, UNSURE OF EVENT THAT BROUGHT HIM TO HOSPITAL. NEURO ASSESSMENT OTHERWISE NEGATIVE. PT DENIES PAIN, NAUSEA, OR SOB. BELL CATH PRESENT, DRAINING RED URINE. ATTENDS IN PLACE. MEDS ADMINISTERED, PT TOLERATED WELL. PT DENIES FURTHER NEEDS AT THIS TIME. CALL LIGHT IN REACH.
--- NOTE | 2019-10-05 00:45 | NUR ---
ANSWERED CALL LIGHT. BED OSBORNE OFF. CLEANED PATIENT. BED ALARM ON FOR SAFETY.
--- NOTE | 2019-10-05 01:20 | NUR ---
ANSWERED CALL LIGHT. PATIENT OFF FROM BED OSBORNE. PATIENT HAD A SMALL LOOSE BOWEL MOVEMENT. BED ALARM ON FOR SAFETY. V/S AND I&O DONE.
--- NOTE | 2019-10-05 02:09 | NUR ---
BED ALARM WENT OFF. PATIENT WANTS TO USE THE TOILET. BED OSBORNE OFFERED. PATIENT HAD SMALL LOOSE BOWEL MOVEMENT. BED ALARM ON FOR SAFETY. ROOM LIGHTS OFF. CALL LIGHT IN REACH.
--- NOTE | 2019-10-05 02:15 | NUR ---
DATABASE DESIGN ANALYST TO ROOM FOR NEURO ASSESSMENT. PT ALERT AND ORIENTED X 2. UNABLE TO ACCURATELY STATE PLACE OR EVENT. NEURO CHECK OTHERWISE WNL. PT DENIES FURTHER NEEDS AT THIS TIME. CONTINUES TO CALL FREQUENTLY, OR ATTEMPT TO GET OOB FOR URGE TO HAVE BM. BED ALARM ACTIVE. CALL LIGHT IN REACH. ROOM IN VIEW OF RN STATION.
--- NOTE | 2019-10-05 02:50 | NUR ---
PATIENT IS OFF FROM BED OSBORNE. BED ALARM ON.
--- NOTE | 2019-10-05 04:00 | NUR ---
PT ASSESSMENT COMPLETE. PT DENIES PAIN AND NAUSEA. REPORTS SOB. RHONCI AUSCULTATED TO ALL LUNG MACKENZIE. PT WITH COUGH, NON PRODUCTIVE. PT ASKS FOR PRN TO ASSIST WITH SOB. BELL CATH DRAINING RED URINE. ATTENDS IN PLACE, PT CALLING FREQUENTLY FOR URGE TO HAVE BM. PT OCCASIONALLY HAVING SMALL, LOOSE BMS. PITTING EDEMA PRESENT TO BLE'S. PT DENIES FURTHER NEEDS. BED ALARM ACTIVE. CALL LIGHT IN REACH. ROOM IN VIEW OF RN STATION.
--- NOTE | 2019-10-05 04:38 | NUR ---
PATIENT CALLS COMPLAINING ABOUT HAVING TROUBLE BREATHING. PATIENT'S OXYGEN SATURATIONS ARE 96%. PATIENT DOES SOUND GURGLY WHEN BREATHING. RN TO BEDSIDE TO ASSESS AT THIS TIME. PATIENT GIVEN A MOUTH SWAB WITH RN PERMISSION.
--- NOTE | 2019-10-05 04:45 | NUR ---
NOTIFIED VIA PHONE CALL OF INCREASED SOB, DIFFICULTY BREATHING, TACHYPNEA, RHONCI AND COUGH. SA02 95%. IV SL AT THIS TIME. NEW PRN ORDER RECEIVED.
--- NOTE | 2019-10-05 06:10 | NUR ---
LINOLEUM TILE LAYER TO ROOM FOR BED ALARM SOUNDING. PT ATTEMPTING TO GET OOB, STATES HE NEEDS TO HAVE BM. PT TO BSC WITH 2PA, NEEDS FREQUENT DIRECTION. PT HAD SMALL LIQ BM, GREEN. NEW ATTENDS PLACED. PT ASSISTED BACK TO BED. DENIES FURTHER NEEDS AT THIS TIME. CALL LIGHT IN REACH. BED ALARM ACTIVE. ROOM IN VIEW OF RN STATION.
--- NOTE | 2019-10-05 07:41 | NUR ---
0725; Pt resting in bed and he states he is comfortable. Tele is SR at 79, bed alarm is on and his call hines is within reach. Report recieved from Daily.
--- NOTE | 2019-10-05 09:45 | NUR ---
PT NOT ORIENTED TO DATE, TIME OR LOCATION. HE DOES STATE HE IS IN THE CORRECT CITY AND STATE. HE IS PLEASENT AND FOLLOW COMMANDS. PT WEAK EQUALY IN ALL EXTREMITIES. PT DENIES CP OR SOB. LUNG SOUNDS NOTED TO HAVE FINE CRACKLES IN THE BASES. CPOX PLACED AND SAT IS 93% ON ROOM AIR. WILL CONTINUE TO MONITOR. DR CANTRELL WILL BE NOTIFIED OF THE BP OF 156/119. SEE ASSESSMENT.
--- NOTE | 2019-10-05 13:15 | NUR ---
PT RESPONDING TO QUESTIONS TO PERSON, PLACE AND TIME CORRECTLY AT THIS TIME. HIS INSIGHT REMAINS NOT INTACT FULLY. BED ALARM REMAINS ON BUT HE IS MORE ALERT WELL. SAT 95% ON ROOM AIR AND HE DENIES ANY CP OR SOB. TELE IS SR IN THE 70'S. BELL APPEARS TO BE LESS JERRY IN COLOR THAN IT WAS ON THE LAST ASSESSMENT. THE PT HAS HAD MANY LOOSE STOOLS THIS SHIFT AND SAMPLE WAS SENT TO THE LAB.
--- NOTE | 2019-10-05 13:51 | NUR ---
PT GIVEN A BEDSIDE SWALLOW EVAL AND PASSED IT. DIET WAS ADVANCED, PROTOCOL SHEET PLACED IN HIS CHART. PT ASSISTED TO THE COMMODE AND HAD ANOTHER SMALL LIQUID BM. PT CLEANED UP AND IS NOW BACK IN HIS BED. ALARM IS ON AND CALL ROWLAND WITHIN REACH.
--- NOTE | 2019-10-05 14:05 | NUR ---
PT GIVEN AN IS AND HE IS USING IT AT THIS TIME.
--- NOTE | 2019-10-05 15:48 | NUR ---
PT NOW ORIENTED AND INSIGHT IS INTACT. PT ABLE TO ANSWER ALL QUESTIONS CORRECTLY TO INCLUDE MATH QUESTIONS.
--- NOTE | 2019-10-05 16:36 | NUR ---
VERBAL ORDER RECIEVED FROM DR CANTRELL TO REMOVE THE BELL CATH. BELL REMOVED ORDERED AND THE PT TOLERATED IT WELL. PT RESTING IN BED WITH HIS CALL ROW[place] WITHIN REACH. PT ORIENTED AND THE BED ALARM IS NO LONGER ON.
--- NOTE | 2019-10-05 17:17 | NUR ---
MOSHE'S CONFUSION HAS RETURNED, VITAL SIGNS CHECKED AND BED ALARM TURNED BACK ON. TELE REMAINS SR. DR CANTRELL NOTIFED OF THE RETURNED CONFUSION.
--- NOTE | 2019-10-05 18:11 | NUR ---
PT sleeping, tele sr.
--- NOTE | 2019-10-05 18:23 | NUR ---
Pt has voided several times since his crooks has been removed. He states he normaly voids small amounts frequently. Pt states his pain is "a lot better" since he was given Tylenol.
--- NOTE | 2019-10-05 19:15 | NUR ---
bedside report from Alexis, rn - pt urgently have to go to br + flatus, bm loose, pt back to bed 2 person assit back to bed with alarm on.
--- NOTE | 2019-10-05 20:46 | NUR ---
AUTOMOTIVE VEHICLE INSPECTOR ROUNDING NOTE. PT WITH BED ALARM SOUNDING, CLOTH CALENDER TO ROOM, PT ATTEMPTING GET OUT OF BED. STATES THAT HE "NEEDS TO GO PEE." PT ASSISTED TO BSC WITH 1 PA. ATTENDS CHANGED AND FLOOR CLEANED. PT DENIES FURTHER NEEDS. PERSONAL ITEMS WITHIN REACH. CALL IGHT IN REACH. BED ALARM ACTIVE. WHITE BOARD UPDATED.
--- NOTE | 2019-10-05 20:56 | NUR ---
pt c/o hip pain, unaware of day, and takes a bit to list president, but knows names of neighbors mikey and jeffrey and there son. he is able to report year and trump. and aware dr lopez is his ortho. asked this rn to look for his home meds, not located in the room at this time. bed alarm on, call light in reach. denies other needs. pleasant.
--- NOTE | 2019-10-05 22:15 | NUR ---
SCAB TO R UPPER ELBOW AREA OPENED UP - COVERED WITH ALEVEN DRSG. ALERT AND AWAKE, CALL LIGHT IN REACH, BED ALARM ON. CONFUSED.
--- NOTE | 2019-10-05 23:00 | NUR ---
HELPED PATIENT FROM BEDSIDE COMMODE TO CHAIR. CHAIR ALARM ON.
--- NOTE | 2019-10-05 23:30 | NUR ---
PATIENT WANTED TO GO BACK TO BED. BED ALARM ON.
--- NOTE | 2019-10-06 00:12 | NUR ---
ANSWERED CALL LIGHT. 1 PA TO BEDSIDE COMMODE AND BACK TO BED. PRIMARY RN WAS WITH PATIENT.
--- NOTE | 2019-10-06 01:15 | NUR ---
pt anxious to go home, asked rn to walk with him to the br to help speed up his chances of going home. 1 person assist to use the fww and pt amb to br to void and bm. uses call light appropriately and amb back to bed with assist. acknoleges that he was confused earlier and feels much better now. repositioned in bed, warm pack given for hip pain. bed alarm on and call light in reach.
--- NOTE | 2019-10-06 02:04 | NUR ---
PATIENT USED CALL BUTTON FROM BATHROOM. 1 PA USING WALKER. PATIENT IS BACK IN BED. BED ALARM ON FOR SAFETY.
--- NOTE | 2019-10-06 06:16 | NUR ---
pt progressivly improved during shift. now amb to br and uses call light appropriately. bm's have been more solid, and he is more alert and oriented - stand by assist with fww to amb to br. doing well. but cautious.
--- NOTE | 2019-10-06 07:34 | NUR ---
0655: REPORT RECIEVED FROM YOBANY REED. PT RESTING IN HIS BED WITH CALL R[place] WITHIN REACH. TELE SR WITH OCC PVC'S.
--- NOTE | 2019-10-06 09:45 | NUR ---
PT APPEARS TO BE SLEEPING, TELE READS SR.
--- NOTE | 2019-10-06 10:48 | NUR ---
PT INFORMED OF THE PLAN TO BE SEEN BY PHYSICAL THERAPY TO ASSURE HE CAN BE SAFE AT HOME. HE STATES UNDERSTANDING OF THIS AND HIS MENTAL STATUS AND INSIGHT REMAIN INTACT.
--- NOTE | 2019-10-06 11:46 | NUR ---
Pt sleeping at this time, tele SR at 66.
--- NOTE | 2019-10-06 11:53 | NUR ---
THIS MORING PATIENT BED ALARM WENT OFF HE WAS SITTING AT THE EDGE OF HIS BED WHEN I CAME IN I ASKED HIM IF HE WOULD LIKE TO SIT UP IN HIS CHAIR FOR BREAKFAST AND HE SAID YES SO I HELPED HIM TO HIS CHAIR. NOW PATIENT IS IN HIS BED SLEEPING WITH BED ALARM ON.
--- NOTE | 2019-10-06 13:14 | NUR ---
PT AWOKE TO VOICE AND IS ORIENTED AT THIS TIME. HE NOW STATES HE IS HAVING LEFT HIP AND BACK PAIN WHICH ARE CHRONIC. PT DID NOT STATE WHAT IS AN ACCEPTABLE LEVEL FOR HIM BUT FELL BACK TO SLEEP WHILE I WAS STILL IN THE ROOM. PT NOTED TO HAVE A LEFT UPPER ARM, RIGHT ABD AND RIBS BRUISING. HE STATED THAT HE THINKS HE FELL TWICE WHILE AT HOME. INSIGHT REMAINS INTACT. PT CONTINUES TO HAVE FREQUENT URINE WITH SCANT AMOUNTS WHICH HE STATES IS HIS BASELINE. SEE ASSESSMENT.
--- NOTE | 2019-10-06 14:45 | NUR ---
NOTIFIED OF PT IN A-FIB WITH TACHYCARDIA SUSTAINED AT 115-135 HR
--- NOTE | 2019-10-06 14:48 | NUR ---
Pt noted to be in a-fib vital signs checked, pt denies any sob or chest pain. Dr Spencer notified, new orders received.
--- NOTE | 2019-10-06 15:00 | NUR ---
Pt continues to deny any problems such as sob or cp. Lopressor given as ordered.
--- NOTE | 2019-10-06 16:10 | NUR ---
Pt sleeping, hr 107 and he remains in a-fib.
--- NOTE | 2019-10-06 16:45 | NUR ---
Pt states his pain is "not too bad" at this time.
--- NOTE | 2019-10-06 18:49 | NUR ---
Tele: A-fib at 93 at this time.
--- NOTE | 2019-10-06 19:00 | NUR ---
BEDSIDE REPORT RECEIVED FROM BRIANNA NUNO. PT PARTICIPATES IN REPORT. DECLINES NEEDS. CALL LIGHT IN REACH.
--- NOTE | 2019-10-06 22:12 | NUR ---
PT ASSESSMENT COMPLETE. PT RATES PAIN 8/10 TO L HIP, BACK, AND L KNEE. PRN TYLENOL ADMINISTERED. PT DENIES NAUSEA. PT REPORTS PERIOD OF SOB, DENIES ANY AT PRESENT. DENIES COUGH. LUNG SOUNDS CLEAR THROUGHOUT. TELE #5 PRESENT, SR. PT UP TO BATHROOM WITH 1 PA AND FWW, TOLERATED WELL. BLE WITH TRACE TO 1+ EDEMA PRESENT. SCABING AND BRUISING UNCHANGED. PT TALKATIVE. DENIES FURTHER NEEDS. CALL LIGHT IN REACH. ROOM IN VIEW OF RN STATION.
--- NOTE | 2019-10-06 23:10 | NUR ---
PT UTILIZES CALL LIGHT, REQUESTS TO USE THE BATHROOM. ELECTRICIAN CHIEF OFFERED PT THE URINAL, PT STATES THAT HE IS UNSURE WHETHER HE WILL HAVE BM. PREFERS TO USE THE TOILET. PT TO BATHROOM WITH 1 PA AND FWW. TOLERATED WELL. PT AGREES TO USE CALL LIGHT IN BATHROOM WHEN READY TO GET UP.
--- NOTE | 2019-10-06 23:13 | NUR ---
HELPED PATIENT FROM BATHROOM BACK TO BED.
--- NOTE | 2019-10-07 00:30 | NUR ---
PT CALLED WANTED TO "WALK". WITH FWW, AMBULATE TO NURSES STATION FROM ROOM, NOTED HEART RATE WENT FROM 80'S TO 120'S, AMBULATED BACK TO ROOM, TO HIS RECLINER CHAIR.
--- NOTE | 2019-10-07 01:51 | NUR ---
SBA PATIENT USED THE BATHROOM. PATIENT IS BACK IN BED.
--- NOTE | 2019-10-07 02:00 | NUR ---
PT UTILIZES CALL LIGHT, REQUESTS TO SIT OUT AT NURSES STATION FOR A WHILE. PT SAT AT DESK TALKING WITH RN'S ABOUT RODEO, ETC. FOR APPROXIMATELY 20-45 MINUTES. PT AGREES TO HEAD BACK TO ROOM. PT ASSESSMENT COMPLETE. UNCHANGED FROM PREVIOUS. PT DENIES FURTHER NEEDS. CALL LIGHT IN REACH.
--- NOTE | 2019-10-07 02:55 | NUR ---
PT BACK TO BED AFTER SITTING AT RN STATION. PT ASSESSMENT COMPLETE. PT DENIES SOB OR NAUSEA AT THIS TIME. PAIN AT BASELINE LEVEL. TELE # 5, AFIB, HR ELEVATES WITH MOVEMENT UP TO 120'S-130'S. ATTENDS IN PLACE. BLE WITH 1+ EDEMA PRESENT. PT DENIES NEEDS AT THIS TIME. CALL LIGHT IN REACH.
--- NOTE | 2019-10-07 05:00 | NUR ---
PT UTILIZES CALL LIGHT, REQUESTS PRN PAIN MEDCIATION FOR HIS HIP. STATES THAT HE ATTEMPTED TO SLEEP ON HIS SIDE AND IT AGGRAVATED THE PAIN. PT RATES 9/. OFFERED ICE OR WARM COMPRESS TO HELP WITH PAIN, PT DECLINES. ICE WATER REFILLED. DENIES FURTHER NEEDS. CALL LIGHT IN REACH.
--- NOTE | 2019-10-07 06:27 | NUR ---
MED SURG RESIDENTIAL MENTAL HEALTH WORKER WAS CALLED SEVERAL TIMES THIS SHIFT IN REGADS TO HR OF THIS PT. AT TIMES HR WAS >150. PT ALSO HAD 6 BEATS OF V-TACH.
--- NOTE | 2019-10-07 07:24 | NUR ---
PT APPEARS TO BE SLEEPING SOUNDLY AT TIME OF REPORT, NOC RN REPORTS HE WAS AWAKE MUCH OF THE NIGHT. HE APPEARS RELAXED AND RESTFUL CALL LIGHT IN REACH
--- NOTE | 2019-10-07 07:41 | NUR ---
PT HEART RATE SUSTAINED INTO THE 130-140. CALLED SURG TO CHECK ON PT. TOLD BY PETROLEUM INSPECTOR SUPERVISOR, PT UP IN BATHROOM. SUGGESTED TO RN THAT PT BE GIVEN AM LOPRESSOR. WILL CONTINUE TO MONITOR.
--- NOTE | 2019-10-07 09:10 | NUR ---
PATIENT SLEEPING. WILL CHECK BACK.
--- NOTE | 2019-10-07 09:44 | NUR ---
PT UP TO THE CHAIR FOR MORNING MEAL, RETURNS TO RESTING IN BED. HR ELEVATED WHEN UP TO THE TOILET MD ADDS 25MG MORE OF LOPRESSOR TO SCHEDULED MEDS. PT DENIES KNOWLEDGE OF WHAT CAUSED HIS CONFUSION AND LANDED HIM HERE. DISCUSSED THE POSSIBILTY OF ACCIDENTLY TAKING EVENING MEDS TWICE, SUGGESTED HE USE A PILL MINDER INSTEAD OF THE BOTTLES TO PREVENT ACCIDENTAL OVER DOSE.
--- NOTE | 2019-10-07 10:48 | NUR ---
PT UP TO AMBULATE A SHORT DISTANCE WITH STAFF HR INCREASES TO LOW 100'S OPPOSED TO 140'S IT DID EARLIER. EDUCATION R/T MEDS PROVIDED AT LENGTH
--- NOTE | 2019-10-07 11:10 | NUR ---
SPOKE WITH PATIENT IN ROOM. HE STATES HE IS RETIRED. LIVES OUT OF TOWN IN A FIFTH WHEEL TRAILER. HAS TWO STEPS UP THAT HE DOESN'T NORMALLY HAVE TROUBLE WITH. THERE ARE TWO FRIENDS LIVING ON PROPERTY ALSO WHO WILL CHECK ON HIM. HE DRIVES. HE HAS A WALKER AND A CANE HE CAN USE. HE FEELS SAFE TO DISCHARGE HOME WHEN READY. HIS FRIEND LOCO WILL PICK HIM UP. HE DENIES HAVING FINANCIAL WORRY FOR AFFORDING HIS MEDICATIONS, FOOD OR UTILITIES. CM WILL CONTINUE TO FOLLOW.
--- NOTE | 2019-10-07 12:45 | NUR ---
PT IN ATRIAL FLUTTER AT THIS TIME WITH A RATE IN THE 80'S. DR REYES AND CHARGE NURSE NOTIFIED.
--- NOTE | 2019-10-07 13:56 | NUR ---
MED REC COMPLETE
--- NOTE | 2019-10-07 14:11 | NUR ---
DR REYES IN TO SEE THE PT WRITES ORDERS FOR SOME OF HIS ROUTINE MEDS. PT RESTING SOUNDLY AT THIS TIME
--- NOTE | 2019-10-07 15:02 | NUR ---
PATIENT SAID HIS HIPS WERE BOTHERING HIM, WE MOVED HIM TO THE CHAIR, PATIENT SEEMS COMFORTABLE
--- NOTE | 2019-10-07 15:54 | NUR ---
PT SITTING UP IN THE CHAIR CALL LIGHT IN REACH REPORTS 0 REQUESTS
--- NOTE | 2019-10-07 19:52 | NUR ---
REPORT RECEIVED FROM DAY SHIFT RN. PT SITTING IN RECLINER, ALERT AND ORIENTED. REQUESTING TO GO TO BR FOR PM CARES. HOUSEKEEPING CLEANER IN ROOM. DENIES OTHER NEEDS AT THIS TIME. CALL LIGHT IN REACH.
--- NOTE | 2019-10-07 21:30 | NUR ---
EVENING ASSESSMENT COMPLETE. SCHEDULED MEDS PROVIDED. PRN GIVEN FOR LEFT HIP PAIN. PT REQUESTING STOOL SOFTENER, HE REPORTS STILL FEELING LIKE HE HAS TO HAVE BM DESPITE FREQUENT LOOSE STOOL. HE ALSO REPORTS HAVING HAD TO "STRAIN PRETTY BAD" DURING HIS LAST ATTEMPT. NIO FOR STOOL SOFTENER BY COCOA MILLING MACHINE OPERATOR. TELE #5 NSR, HR 70'S. PT DENIES FURTHER NEEDS. CALL LIGHT IN REACH.
--- NOTE | 2019-10-08 00:10 | NUR ---
PATIENT CALLED. SBA TO THE BATHROOM. PATIENT IS UP IN THE CHAIR. CALL LIGHT IN REACH.
--- NOTE | 2019-10-08 00:52 | NUR ---
PT RESTING IN BED WITH EYES CLOSED, NAD. TELE #5 SINUS RHYTHM, HR 58.
--- NOTE | 2019-10-08 03:15 | NUR ---
PATIENT UP FROM CHAIR TO BATHROOM USING WALKER. PATIENT IS BACK IN BED.
--- NOTE | 2019-10-08 03:36 | NUR ---
ASSESSMENT COMPLETE. PRN GIVEN FOR HIP PAIN. PT REPORTS HE HAS BEEN SLEEPING WELL. DENIES CP OR SOB. TELE #5 SINUS RHYTHM, HR 50'S. NO ADDITIONAL NEEDS. CALL LIGHT IN REACH.
--- NOTE | 2019-10-08 06:54 | NUR ---
PT UP TO BATHROOM, HAD A SOFT MED BM, NO LIQUID. PRIMARY RN FOR DAYSHIFT AWARE OF REASONING FOR THE STOOL MEDICATIONS.
--- NOTE | 2019-10-08 06:58 | NUR ---
PT UP TO BR WITH FWW AND SBA, GAIT STEADY. PT HAD MED SOFT BM. BACK TO BED, OTTO WELL. STOOL SAMPLE TO LAB. PT ANXIOUS ABOUT POSSIBLE DC TODAY. TELE #5 SR, HR 50'S.
--- NOTE | 2019-10-08 07:20 | NUR ---
PT APPEARS TO BE SLEEPING SOUNDLY AT TIME OF REPORT. LEFT UNDISTURBED. CALL LIGHT IN REACH
--- NOTE | 2019-10-08 09:17 | NUR ---
PATIENT UP TO SHOWER AND BACK TO BED SBA, FWW. PATIENT MOSTLY IND IN SHOWER. NEW GOWN PROVIDED. IV TAKEN OUT UPON RN REQUEST. CATH INTACT AND LOOKED GOOD. CALL LIGHT IN REACH. NO FURTHER NEEDS AT THIS TIME.
--- NOTE | 2019-10-08 10:12 | NUR ---
PT REPORTS FEELING "SO MUCH BETTER TODAY" TO THE SHOWER AFTER MORNING MEAL SBA ONLY. RETURNS TO SITTING IN THE CHAIR WAITING FOR DOCTOR. PT STATES HE WANTS TO GO HOME TODAY. CONTINUES IN SINUS RYTHM HR 60 AT THIS TIME
--- NOTE | 2019-10-08 11:20 | NUR ---
dr perla in to see pt. discusses medications and plan going forward. pt verbalizes understanding
[2019-10-08] MEDS ORDERED: TOPROL XL50 MG PO (11:30)
[2019-10-08] MEDS ORDERED: LEXAPRO20 MG PO (11:31)
--- NOTE | 2019-10-08 14:14 | NUR ---
PT WAS UP AMBULATING THE HALLS WITH Sukhwinder CHAMBERS. PT WAS WORKING HARD, GAVE ENCOURAGEMENT AND HE SEEMED TO APPRECIATE IT. GAVE BLESSING TO PT HE CONTINUED ON HIS WAY PREPPING FOR DC
== END 2019-10-08 12:25 | disposition home or self-care (01) | DRG 92 ==
LOC: ED 16:21 → CCU 16:22 → ED 16:22 → MS 16:22 → CCU 16:22 → MS 20:54 → ED 20:54 → MS 10-07 09:24
PROVIDERS: ADMIT Internal Medicine
DX: G92 Toxic encephalopathy (principal); I48.92 Unspecified atrial flutter; T40.2X5A Adverse effect of other opioids, initial encounter; T42.4X5A Adverse effect of benzodiazepines, initial encounter; T43.215A Adverse effect of selective serotonin and norepinephrine reuptake inhibitors, initial encounter; F51.04 Psychophysiologic insomnia; F41.0 Panic disorder [episodic paroxysmal anxiety]; I10 Essential (primary) hypertension; E78.00 Pure hypercholesterolemia, unspecified; M54.9 Dorsalgia, unspecified; M25.559 Pain in unspecified hip; I48.91 Unspecified atrial fibrillation; Z79.01 Long term (current) use of anticoagulants; Z79.899 Other long term (current) drug therapy
CPT/HCPCS: 36415; 70450; 71045; 80048; 80053; 81001; 83735; 84146; 84443; 84484; 85025; 85610; 87493; 93005; 93010; 94640; 94760; 96374; 96375; 97110; 97116; 97162; 99285-25; J1885; J2310; J3475; J3480; J7030; U0002

== ENCOUNTER 2019-11-11 05:35 | Inpatient (IN) | payer MEDICARE, OTHER ==
--- NOTE | 2019-10-29 17:32 | NUR ---
PATIENT HERE TODAY FOR PREADMISSION ADMISSION. HE IS SCHEDULED FOR A LEFT TOTAL HIP ARTHROPLASTY ON 11/11/2019. PATIENT CURRENTLY LIVES IN A 5TH WHEEL RV. HE HAS 3 STEPS INTO THE RV AND 2 STEPS INSIDE THE RV. THERE IS A WALK IN SHOWER THAT IS SMALL AND A TOILET THAT IS TALLER. HE DOES HAVE A WALKER BUT NEEDS TO FIND IT. HE WILL BRING IT WITH HIM ON ADMISSION. HE HAS A PREOPERATIVE VISIT WITH PHYSICAL THERAPY ON 10/30/2019. HE WOULD LIKE PHYSICAL THERAPY SET UP WITH [facility] AFTER DISCHARGE. HIS FRIEND DESTINY WILL BE HERE TO TRANSPORT HIM HOME AND TO APPOINTMENTS NEEDED. HE IS SCHEDULED TO HAVE A COVID TEST DONE 11/09/2019 AT 0730. HE WAS GIVEN INSTRUCTIONS AND VERBALIZED UNDERSTANDING. THIS INFORMATION WILL BE SENT TO DR SANCHEZ OFFICE AND CASE MANAGEMENT FOR FURTHER FOLLOW UP.
--- NOTE | 2019-11-10 16:08 | NUR ---
Medications reconciled by pharmacy records and phone interview. Patient takes Eliquis but has held it prior to surgery. Patient has chronic back pain and takes high dose [place] 5 times daily chronically
[~2019-11-11] VITALS: Ht 177.8 cm; Wt 112.5 kg
[~2019-11-11 05:35] MED LIST changes: +LEXAPRO20 MG PO
[2019-11-11] MEDS ORDERED: TRAZODONE HCL50 MG PO (05:57)
--- NOTE | 2019-11-11 11:08 | NUR ---
11/11/19 1108 Basia Gilliam 1058- PT TO PACU IN SUPINE POSITION WITH ORAL AIRWAY IN PLACE AND EYES CLOSED. BREATHING EASY AND UNLABORED SPO2 >95% ON 8 L O2 VIA SIMPLE MASK. VICKY HOSE ON. R HIP DRESSING SATURATED. PA NOTIFIED, ORDERS RECIEVED TO CHANGE DRESSEING. L HIP DRESSING CDI WITH GREEN LIGHT ON. 1105- PT CONTINUES TO SLEEP WITH ORAL AIRWAY IN PLACE. EYES CLOSED. BREATHING EASY AND UNLABORED SP02 >95% ON 8 L O2 VIA MASK.
--- NOTE | 2019-11-11 12:20 | NUR ---
PT ARRIVED TO FLOOR VIA BED. 2L NC IN PLACE. PT DROWSY BUT AWAKES TO VERBAL STIMULI. PICCO BLINKING GREEN, PEA SIZER SHADOWING TO LEFT HIP. RIGHT HIP DRESSING IUNTACT AND DRY. CRYO CUFF IN PLACE. FETT PUMPS AND TEDHOSE IN PLACE. PT WITH NO N/T IN BILAT LE. LUNGS CLEAR. MURMUR HEARD. SCOP PATCH BEHIND RIGHT EAT. WATER PROVIDED. CALL LGITH IN REACH.
--- NOTE | 2019-11-11 13:20 | NUR ---
VITALS TAKE NAND STABLE .PT TITRATED TO RA. TOLERATING WELL. DRESSING SAME PREVIOUS ASSESSMENT. PT IS ALERT AND ORIENTED. CALL LIGHT IN REACH. CPOX, SCD'S, TEDHOSE, CRYO CUFF IN PLACE. DENIES NEEDS.
--- NOTE | 2019-11-11 14:16 | NUR ---
PATIENT SITTING UP IN BED TAKING HIS LUNCH. RN IN ROOM. I&O DONE. CALL LIGHT WITHIN REACH. NO OTHER NEEDS AT THIS TIME
--- NOTE | 2019-11-11 14:19 | NUR ---
VITALS TAKEN. ASSESSMENT DONE. NO CHANGES. 2PA TO STAND AT EDGE OF BED TO VOID. CRYO CUFF, TEDOHSE, SCD'S IN PLACE. CALL LIGHT IN REACH.
--- NOTE | 2019-11-11 16:36 | NUR ---
PHYSICAL THERAPY IN TO WORK WITH PT.
--- NOTE | 2019-11-11 17:14 | NUR ---
PATIENT SITTING UP IN BED. VITAL SIGNS AND I&O DONE. CALL LIGHT WITHIN REACH. NO OTHER NEEDS AT THIS TIME
--- NOTE | 2019-11-11 17:51 | NUR ---
PT HAD GOOD EVENING. WORKED WELL WITH PHYSICAL THERAPY, AMBULATED TO BATHROOM. PAIN WELL CONTROLLED. EATING AND DRINKING WELL. PICCO INTACT, BLINKING GREEN. CPOX, CRYO CUFF, TEDHOSE, SCD'S IN PLACE. VOIDING WELL.
--- NOTE | 2019-11-11 19:29 | NUR ---
REPORT RECEIVED FROM DAY SHIFT RN. PT LYING IN BED, ALERT AND ORIENTED. VISITOR IN ROOM. O2 2L/NC, SPO2 98%, HR 55. CPOX IN PLACE. AGREES PAIN IS TOLERABLE. WHITE BOARD UPDATED. CALL LIGHT IN REACH.
--- NOTE | 2019-11-11 19:38 | NUR ---
BATHROOM CALL LIGHT ANSWERED. 1 PA BACK TO BED. SCD CRYO AND CPOX ARE BACK ON. CALL LIGHT IN REACH. CRYO REFILLED.
--- NOTE | 2019-11-11 21:20 | NUR ---
PT DROWSY BUT AWAKENS EASILY. CPOX IN PLACE. SPO2 95% ON 2L/NC, HR LOW 50'S. PT DUE TO RECEIVE METOPROLOL [address] SANCHEZ TO NOTIFY OF PT'S LOW HR AND NO HOLD PARAMETERS, INSTRUCTED TO DISCUSS WITH DR. NEUMANN. NEW ORDERS RECEIVED FROM DR. NEUMANN. VERIFIED WITH READ BACK METHOD. SCHEDULED MEDS ADMINISTERED PER EMAR.
--- NOTE | 2019-11-11 22:30 | NUR ---
EVENING ASSESSMENT COMPLETE. IV ABX INFUSING. PT UP TO SIDE OF BED TO VOID. BACK TO BED, OTTO WELL. DENIES PAIN. DARRIAN DRESSING ON LEFT HIP INTACT. SATURATED WITH SANGUINEOUS DRAINAGE. LIGHT FLASHING GREEN. SCD'S/TEDS/HP IN PLACE. FRESH ICE TO CRYO. CMS INTACT. CPOX. O2 2L/NC. HR UPPER 50'S. BED ALARM ON FOR SAFETY. CALL LIGHT WITHIN REACH.
--- NOTE | 2019-11-12 00:18 | NUR ---
CALL LIGHT ANSWERED. PRN GIVEN FOR LEFT HIP PAIN. DARRIAN NOTED TO BE FLASHING RED. DRESSING SATURATED BUT INTACT WITH NO LEAKING AROUND THE EDGES. DISCUSSED WITH GASOLINE TRUCK CRANE OPERATOR. PT UP TO SIDE OF BED TO VOID. BACK TO BED, OTTO WELL.
--- NOTE | 2019-11-12 01:00 | NUR ---
PT C/O LEFT QUAD PAIN/CRAMPING. PT STOOD UP AT SIDE OF BED WITH FWW AND 1PA TO BEAR WEIGHT ON LEG TO SEE IF THAT WOULD ALLEVIATE PAIN. PT REPORTS "THAT HELPED A LITTLE". BACK TO BED. SCD'S/VICKY'S/HP/CRYO IN PLACE. DARRIAN DRESSING UNCHANGED.
--- NOTE | 2019-11-12 01:38 | NUR ---
PRN GIVEN FOR LEFT HIP/QUAD PAIN. DARRIAN DRESSING UNCHANGED. VS WNL.
--- NOTE | 2019-11-12 02:37 | NUR ---
PT UP TO BEDSIDE TO VOID WITH FWW AND 2PA. OTTO WELL, BACK TO BED. DARRIAN UNCHANGED. PT REPORTS PAIN IS TOLERABLE AT THIS TIME.
--- NOTE | 2019-11-12 02:38 | NUR ---
PATIENT SAT BY THE BED AND USED THE URINAL. VOIDED 150CC. PATIENT IS BACK IN BED.
--- NOTE | 2019-11-12 04:36 | NUR ---
CALL LIGHT ANSWERED. PT UP TO BR WITH FWW AND SBA, GAIT STEADY. BACK TO BED, OTTO WELL. SCD'S/VICKY'S/HP/CRYO IN PLACE. DARRIAN DRESSING UNCHANGED, LIGHT FLASHING RED. DRESSING INTACT, NO LEAKING NOTED. DRESSING TO RIGHT HIP WITH SMALL AMOUNT OF DRIED BLOOD. PT O2 SATS 98-100 ON 2L/NC. TITRATED OXYGEN OFF. CPOX REMAINS IN PLACE.
--- NOTE | 2019-11-12 05:23 | NUR ---
PRN GIVEN FOR 7/10 LEFT HIP PAIN. VS AND I&O COMPLETE. FRESH ICE TO CRYO.
--- NOTE | 2019-11-12 06:03 | NUR ---
PT WITH A RESTLESS NIGHT. ALERT AND ORIENTED. USES CALL LIGHT. RA. AFEBRILE. S/P LTH. DARRIAN DRESSING LIGHT FLASHING ORANGE SINCE 17. DRESSING INTACT, NO LEAKING FROM DRESSING NOTED. DRESSING TO RIGHT HIP WITH OLD DRAINAGE. 1-2PA WITH FWW. FREQUENT URINATION. PAIN CONTROLLED WITH SCHEDULED TYLENOL AND PRN OXY 5-10 MG. SCOPALAMINE PATCH BEHIND RIGHT EAR. SCD'S/VICKY'S/HP. CRYO. CPOX.
--- NOTE | 2019-11-12 06:46 | NUR ---
DR. SANCHEZ NOTIFIED ABOUT DARRIAN FLASHING ORANGE AND SATURATED DRESSING. NEW TELEPHONE ORDERS RECEIVED, VERIFIED WITH READ BACK METHOD.
--- NOTE | 2019-11-12 07:31 | NUR ---
REPORT RECEIVED. PT IN BED, AWAKE IN BED. DARRIAN DRESSING CHANGED D/T SATURATION. PT TOLERATED WELL. BLINKING GREEN NOW.
--- NOTE | 2019-11-12 07:45 | NUR ---
Visited with pt. and CM assessment completed. Pt states he lives alone in an trailer [place]. He has animals he cares for. He does not use any DME. It has been suggested to him he needs a CPAP, but does not feel he needs. Wants to go home as he feels he has friends who will assist him with any needs. He feels he is able to get into the 3-4 steps to his home. Discussed Dr. Hutton had stated he would like him to stay a few days [facility] rehab. Pt. declines and states he has animals he has to take care of Dr. Hutton into the room and discusses with pt. Pt then agrees to stay until he meets Dr. Hutton criteria. He states he wants to leave by Monday and Dr Hutton states it is up to him how he progresses. He then checks his dressing as pt had bleeding as anticoagulation was not stopped. He also told pt, he was considering giving him blood, but had not decided yet. Dr will place pt on [facility] in the next day or so.
--- NOTE | 2019-11-12 07:54 | NUR ---
SBA TO BATHROOM THEN TO CHAIR FOR BREAKFAST. 2 NEW PEA SIZE SHADOWING APEARING ON NEW DARRIAN. DRESSING STILL INTACT AND BLINKING GREEN.
--- NOTE | 2019-11-12 09:14 | NUR ---
PATIENT SITTING UP IN CHAIR. VITAL SIGNS AND I&O DONE. CALL LIGHT WITHIN REACH. NO OTHER NEEDS AT THIS TIME
[2019-11-12] MEDS ORDERED: LEXAPRO20 MG PO (10:05)
--- NOTE | 2019-11-12 10:05 | NUR ---
PT PARTICIPATED WELL IT PHYSICAL THERAPY TODAY, AMULATING OUT IN HALLS, DOING BEDSIDE EXERCISES. PAIN WELL CONTROLLED ONLY WITH SCHEDULED PAIN MEDICATION.S PHYSICAL THERAPY ASSITED PT BACK INTO BED. CRYOCUFF TEDHOSE IN PLACE. CALL LIGHT IN REACH.
--- NOTE | 2019-11-12 10:48 | OR ---
[facility] [address], [place] [address] Signed DATE OF OPERATION: 11/11/2019 SURGEON: Adam Hutton MD PREOPERATIVE DIAGNOSIS: Degenerative joint disease, severe left hip. POSTOPERATIVE DIAGNOSIS: Degenerative joint disease, severe left hip. PROCEDURE PERFORMED: Left total hip arthroplasty with Dima. SUPERVISOR SMOKE CONTROL: Jaen Schroeder PA-C. ANESTHESIA: General. BLOOD LOSS: 800 mL. IMPLANTS: [place] 53 PSL cup with standard liner, size 5, Accolade II stem with a -2.5 head. BRIEF HISTORY: Javi is a 74-year-old gentleman with progressive worsening of osteoarthritis in the left hip. He had undergone nonoperative treatment without substantial relief. Risks and benefits of operative treatment discussed with him and he elected to proceed. DESCRIPTION OF PROCEDURE: Once consent was obtained, he was taken to the operating room. After adequate anesthesia, he was placed on operating room table. All downside pressure points were well padded. The hips were prepped and draped in a standard sterile fashion bilaterally. The right ASIS was palpated and the 3 pins for the pelvic ray were placed percutaneously into the pelvis. The attention was then turned to the left side. Standard anterior approach was taken through skin and subcutaneous tissue. The TFL was identified and the fascia was divided longitudinally. Blunt dissection underneath the TFL allowed for entry into the suprascapular area. The TFL was quite tight, was retracted throughout. Two retractors were placed around the femoral neck inferiorly and Electronically Signed By: ADAM HUTTON MD 11/11/19 1150 Electronically Signed By: ADAM HUTTON MD 11/13/19 1005 PATIENT NAME: JAVI ROBERTS OPERATIVE REPORT DATE OF : 41 REPORT #: [id number] PHYSICIAN: ADAM HUTTON MD PCP: BRETT DALTON PA-C REPORT IS CONFIDENTIAL AND NOT TO BE RELEASED WITHOUT AUTHORIZATION [facility] [address], [place] [address] Signed superiorly. The soft tissue was then cleared off up to the acetabulum and the insertion of the rectus was partially released so that we can place a retractor. Once this was accomplished, a T-shaped arthrotomy was performed and anterior capsular flaps were removed. The retractors were then placed intracapsular. Further releases particularly inferiorly were undertaken. We then made a femoral neck cut at the base of the head and another cm distally. The napkin ring was removed as was the femoral head. Soft tissue releases were undertaken. The femoral neck cut was discovered to be too long. We then shortened it to one fingerbreadth above the lesser trochanter. The periacetabular soft tissue was removed. The acetabulum was reamed using standard Dima technique. The cup was then impacted until it was well seated and stable. The cup was impacted in 40 degrees of abduction and 20 degrees of anteversion. The liner was impacted until it was well seated and flushed. Attention was then turned to the proximal femur. Again, it was hard to get good exposure of the proximal femur secondary to posterior capsular tightness. We did release superiorly and inferiorly and eventually got the femur to deliver enough to get the curved awl in. , the femur was sequentially broached up to a 4 or eventually 5 was selected. A high offset neck and -2.5 was selected. We then reduced the hip. Clinically, his leg lengths were equal and his tension was good. The pelvic grade come loose and so it was unavailable to use for leg length. The hip was dislocated and the trial was removed. The final stem was impacted until it was well-seated flushed with a cut. The femoral head was then impacted and the hip was reduced. We then copiously irrigated with antibiotic solution, 3 L was used. The part of the TFL was torn and this was repaired using #2 Vicryl. The fascia was closed using #2 Vicryl and Stratafix. The subcutaneous tissue with #0 Stratafix and nancy for the skin. Wound was dressed with a DARRIAN wound VAC dressing. He was awakened and taken to the recovery room in satisfactory condition. All sponge, needle, and instrument counts were correct. We did remove the pelvic ray and closed those wounds with nancy as well. Adam Hutton MD BA/MODL /[id number] Electronically Signed By: ADAM HUTTON MD 11/11/19 1150 Electronically Signed By: ADAM HUTTON MD 11/13/19 1005 PATIENT NAME: JAVI ROBERTS OPERATIVE REPORT DATE OF : 41 REPORT #: [id number] PHYSICIAN: ADAM HUTTON MD PCP: BRETT DALTON PA-C REPORT IS CONFIDENTIAL AND NOT TO BE RELEASED WITHOUT AUTHORIZATION [address], [place] [address] Signed Copies: ~ Electronically Signed By: ADAM HUTTON MD 11/11/19 1150 Electronically Signed By: ADAM HUTTON MD 11/13/19 1005 PATIENT NAME: JAVI ROBERTS OPERATIVE REPORT DATE OF : 41 REPORT #: [id number] PHYSICIAN: ADAM HUTTON MD PCP: BRETT DALTON PA-C REPORT IS CONFIDENTIAL AND NOT TO BE RELEASED WITHOUT AUTHORIZATION
--- NOTE | 2019-11-12 11:02 | NUR ---
REPORTING LEFT HIP PAIN 8/10. PRN OXYCODONE 5MG GIVEN.
--- NOTE | 2019-11-12 11:30 | NUR ---
SBA WITH FWW TO BATHROOM, PT MOVING VERY FAST AND NOT WATCHING STEPS, STUMBLING MULTIPLE TIMES. REMINDED TO SLOW DOWM AND TAKE STEPS ONE AT AT TIME WATCHING WHERE HE STEPS. ASSISTED TO CHAIR FOR LUNCH. CRYO CUFF PLACED. DARRIAN STILL INTACT WITH SLIGHT INCREASE IN SHADOWING. GREEN LIGHT BLINKING. CALL LIGHT IN REACH.
--- NOTE | 2019-11-12 12:46 | NUR ---
MED REC COMPLETE
--- NOTE | 2019-11-12 13:15 | NUR ---
CALL LIGHT ANSWERED. PATIENT RESTING IN BED. PATIENT GOES TO USE THE BATHROOM. PATIENT USES WALKER. ONE PERSON ASSISTING. PATIENT BACKS TO BED. PATIENT REFUSED TO DO ORAL CARE. VITAL SIGNS AND I&O DONE. LOW DYASTOLIC BLOOD PRESSURE. RN NOTIFIED. CALL LIGHT WITHIN REACH. NO OTHER NEEDS AT THIS TIME
--- NOTE | 2019-11-12 13:58 | NUR ---
PT LAYING IN BED, ALERT, ORIENTED AND TV ON. PT SAID PAIN IS AT 7 AND NEEDED TO GET TO THE BR IMMEDIATELY. LEFT G.POST AND INFORMED RN SUSAN OF PT'S NEED. SHE RESPONDED, WILL FOLLOW UP
--- NOTE | 2019-11-12 14:00 | NUR ---
PT UP TO BATHROOM ONE PERSON ASSIST. SBA WITH FWW ONCE UP OUT OF BED. TO BATHRROM VOIDED AND HAD BM. PT CALLED FOR ASSISTANCE OUT OF BATHROOM. HE REFUSED TO SIT UP IN RECLINER. PT SAT AT EDGE OF BED. PT ASKED HE HE WOULD BE WILLING TO SIT UP AT EDGE OF BED FOR AWHILE. PT SAID NO HE IS VERY TIRED AND WANTS TO LAY BACK DOWN. LAB INTO DRAW BLOOD FOR 1400 ORDERS.
--- NOTE | 2019-11-12 14:33 | NUR ---
SCHEDULED TYLENOL AND GABIPENTIN GIVEN. PHYSICAL THERAPY IN TO WORK WITH PT.
--- NOTE | 2019-11-12 15:47 | NUR ---
PT REPORTING 7/10 PAIN AFTER THERAPY. PRN OXYCODONE 10 MG. SBA WITH FWW TO CHAIR. CRYO CUFF IN PLACE. CALL LIGHT IN REACH.
--- NOTE | 2019-11-12 18:06 | NUR ---
PT HAD GOOD DAY. VOIDING WELL. EATING AND DRINKING WELL. STAND BY ASSIST WITH FWW. GETS AHEAD OF HIMSELF SOMETIMES AND NEEDS CUING. DARRIAN CHANGED THIS SHIFT D/T SATURATION OF DRESSING. NEW MILD SHADOWING HAS APPEARED ON NEW DRESSING. STILL BLINKING GREEN. PT WORKING WELL WITH PHYSICAL THERAPY AND OCCUPATIONAL THERAPY. UP TO CHAIR FOR ALL MEALS. AMBULATING TO BATHROOM FOR EVERY VOID. PAIN WELL CONTROLLED. VITLAS STABLE.
--- NOTE | 2019-11-12 19:22 | NUR ---
RECEIVED REPORT FROM BRIANNA JENKINS. pt RESTING IN BED. VISUALIZED DRESSINGS, NO NEW DRAINAGE NOTED, INTACT AND DRY. DARRIAN FLASHING GREEN LIGHT. SCDS AND AES ON. WHITEBOARD UPDATED. NO REQUESTS AT THIS TIME. CALL LIGHT WITHIN REACH.
--- NOTE | 2019-11-12 19:55 | NUR ---
ANSWERED CALL LIGHT. 1 PA TO THE BATHROOM USING WALKER. PATIENT IS BACK IN BED. CRYO SCD ARE BACK ON. CALL LIGHT IN REACH.
--- NOTE | 2019-11-12 20:34 | NUR ---
PT WAS ASSISTED TO RESTROOM BY TEST WORKER. PT CALLED FROM RESTROOM FOR ASSISTANCE BACK TO BED. HE DENIES FURTHER NEEDS AT THIS TIME. CALL LIGHT IS WITHIN REACH AND CRYCO CUFF IS IN PLACE ALONG WITH SCDS. PT DENIES NEED FOR HEEL PROTECTORS AT THIS TIME.
--- NOTE | 2019-11-12 21:30 | NUR ---
pt UP TO TOILET, REPORTED A BM. BOWEL MEDS HELD. ASSESSMENT DONE. pt REPORTED 7/10 PAIN, PRN GIVEN WITH SCHEDULED MEDICATIONS (SEE MAR). DARRIAN DRESSING INTACT, GREEN LIGHT FLASHING OKAY. NO NEW DRAINAGE NOTED ON EITHER LEFT OR RIGHT DRESSING. CRYOCUFF FILLED WITH FRESH ICE. NO FURTHER REQUESTS AT THIS TIME. CALL LIGHT WITHIN REACH. pt RESTING IN BED WATCHING TV.
--- NOTE | 2019-11-12 23:00 | NUR ---
CALL LIGTH ON. pt UP TO VOID. 1PA FWW. CALL LIGHT WITHIN REACH.
--- NOTE | 2019-11-12 23:08 | NUR ---
ASSISTED PATIENT FROM BATHROOM BACK TO BED.
--- NOTE | 2019-11-13 | NUR ---
CALL LIGHT ANSWERED. PATIENT UP TO THE BATHROOM. PATIENT IS BACK IN BED. CALL LIGHT IN REACH.
--- NOTE | 2019-11-13 01:09 | NUR ---
CALL LIGHT ON. pt UP TO VOID AND BACK TO BED. 1PA FWW. pt REQUESTED PRN PAIN MEDS FOR 9/10 PAIN, GIVEN WITH SLEEP AID PER REQUEST (SEE MAR). ASSESSMENT DONE. DRESSING CDI, GREEN LIGHT FLASHING ON DARRIAN. CALL LIGHT WITHIN REACH.
--- NOTE | 2019-11-13 02:05 | NUR ---
CALL LIGHT ANSWERED. PATIENT WAS UP TO THE BATHROOM. PATIENT IS BACK IN BED. CRYO CUFF REFILLED.
--- NOTE | 2019-11-13 02:50 | NUR ---
PATIENT CALLED TO USE THE BATHROOM. PATIENT IS BACK IN BED. CALL LIGHT IN REACH.
--- NOTE | 2019-11-13 03:44 | NUR ---
CALL LIGHT ON. pt UP TO VOID, URINE ON GOWN AND SOCKS. PERSONAL HYGIENE DONE. NEW AES, SOCKS AND SCDS. DARRIAN FLASHING GREEN. NO NEW DRAINAGE NOTED. pt SETTLED IN BED. CALL LIGHT WITHIN REACH.
--- NOTE | 2019-11-13 04:32 | NUR ---
CALL LIGHT ON, pt UP 1PA FWW TO VOID. BACK TO BED. DARRIAN FLASHING GREEN. DRESSINGS INTACT. REPORTED PAIN AND WOULD LIKE A PAIN PILL WHEN AVAILABLE, THIS RN WILL BE BACK TO MEDICATE AROUND 5AM. pt AREEABLE TO PLAN. pt SETTLED IN BED. CALL LIGHT WTIHIN REACH.
--- NOTE | 2019-11-13 05:28 | NUR ---
PT CALLED TO USE THE RESTROOM AT 0510. 1PA WITH FWW TO RESTROOM. ONCE PT WAS TO TOILET HE WAS STANDING TO URINATE, THIS RN STEPED AWAY TO GIVE PT A MOMENT TO GO AND STARTED CLOSING THE DOOR WHEN THE PT STARTED TO SLIP AND CAUGHT HIMSELF ON THE BSC NEXT TO THE TOILET ON THIS RT SIDE. PT WAS NOT ABLE TO HOLD ON OR USE HIS UPPER BODY TO PULL HIMSELF BACK UPRIGHT, SO THIS RN ASSISTED HIM TO THE FLOOR AND GOT PRIMARY RN TO COME IN TO ASSIST. WE WERE NOT ABLE TO GET HIM UP FROM A SITTING POSITION SO WE CALLED THE PADDOCK JUDGE FOR MORE ASSISTANCE. PT DOES NOT COMPLAIN OF PAIN ON HIS RIGHT SIDE WHERE HE CAUGHT HIMSELF AND NO HOPE ARE NOTED.
--- NOTE | 2019-11-13 05:30 | NUR ---
INFORMED THAT pt HAD BEEN ASSISTED TO THE FLOOR, IN TO ASSESS. 4PA TO STAND USING GAIT BELT. pt REPORTED BEING STEADY ON HIS FEET. 2PA FWW TO BED. pt DENIED PAIN FROM INCIDENT. "I CAUGHT MYSELF GOING DOWN. MY RIGHT LEG JUST GAVE OUT ON ME AND I SLID." NO TENDERNESS OR BRUISING NOTED ON RIGHT SIDE. pt REPORTED KEEPING LEFT LEG STRAIGHT DURING THE INCIDENT. NO NEW SHADOWING NOTED ON DRESSING. DARRIAN LIGHT FLASHING GREEN. VITALS COMPLETED. pt REPORTED 7/10 PAIN "IT'S THE SAME IT WAS BEFORE I GOT UP." PRN AND SCHEDULED MEDICATIONS GIVEN (SEE MAR). pt SETTLED IN BED. CALL LIGHT WITHIN REACH.
--- NOTE | 2019-11-13 06:09 | NUR ---
NOTIFIED ABOUT pt INCIDENT AND pt STATUS. NO NEW ORDERS AT THIS TIME.
--- NOTE | 2019-11-13 06:50 | NUR ---
PATIENT CALLED TO USE THE BATHROOM. ASSISTED TO USE URINAL. PATIENT IS BACK IN BED. CALL LIGHT IN REACH. NO OTHER NEEDS AT THIS TIME.
--- NOTE | 2019-11-13 07:30 | NUR ---
RECEIVED REPORT FROM SONAL REED. PT PUT HEATING ENGINEER LIGHT THIS AM FOR ASSITANCE TO PEE. PT ABLE TO SIT AT EDGE OF BED TO URINATE, PT HAD POOR AIM WHEN URINATING INTO URINAL AND PEED ON THE FLOOR.
--- NOTE | 2019-11-13 07:37 | NUR ---
pt RESTED ON AND OFF DURING SHIFT. UP EVERY 40 MINUTES OR SO TO VOID OR HAVE BM. 1PA FWW, REQUIRES CUEING NOT TO LEAVE WALKER. IV SL. TOLERATING REGULAR DIET. LEFT HIP DARRIAN DRESSING HAS OLD SHADOWING, GREEN LIGHT FLASHING. DRESSING ON RIGHT SIDE CDI. CRYOCUFF TO LEFT HIP. SCDS AND AES. ALERT AND ORIENTED pt ASSISTED TO GROUND AFTER RIGHT LEG GAVE OUT OR "SLIPPED" SEE NOTE FOR FURTHER DETAILS. DENIES PAIN OR INJURY FROM INCIDENT. USES CALL LIGHT APPROPRIATELY.
--- NOTE | 2019-11-13 07:51 | NUR ---
PT PUT CAPITAL MARKETS SPECIALIST LIGHT FOR ASSISTANCE TO THE RESTROOM TO HAVE A BOWEL MOVEMENT. PT MOVING TOO FAST AND STUMBLED WHEN IN THE RESTROOM. PT ABLE TO REGAIN BALANCE WITH HEAVY ASSISTANCE FROM THIS RN
--- NOTE | 2019-11-13 07:53 | NUR ---
PATIENT IS SLEEPING, WILL RECHECK WHEN BREAKFAST IS DELIEVERED
--- NOTE | 2019-11-13 07:56 | NUR ---
PT UP TO BATHROOM TWO PERSON STANDBY ASSIST WITH FWW. PT HAS UNSTEADY GAIT THIS AM, PT VOIDED AND HAD BM, THEN UP TO RECLINER FOR BREAKFAST.
--- NOTE | 2019-11-13 08:00 | NUR ---
PATIENT IN CHAIR FOR BREAKFAST USED RESTROOM
--- NOTE | 2019-11-13 08:45 | NUR ---
in pts room to give morning meds at this time. not giving pt any miralax or sennokot at this time due to pts increased bm
--- NOTE | 2019-11-13 08:57 | NUR ---
INSTRICTED THIS RN TO BEGIN TRANSFUSION OF 2 UNITS OF PRBC AT THIS TIME.
--- NOTE | 2019-11-13 08:59 | NUR ---
in pts room at this time to do pre vitals for administration of blood. occupational therapist done with pt at this time as well. dr. prince in pts room to discuss treatment plan
--- NOTE | 2019-11-13 09:20 | NUR ---
Spoke with Javi. States he he feeling "rough". c/o small amt of sob. Rn's are in the room preparing to hang blood. Denies pain. Denies needs at this time. He saw Dr. Hutton this am and plan is to go to transition care in the next couple of days. I will give him a list of Optional SNFs and a brochure on TC.
--- NOTE | 2019-11-13 09:21 | NUR ---
STARTED BLOOD ADMIN AT THIS TIME. PT EDUCATED ON POSSIBLE SIDE EFFECTS TO LOOK FOR
--- NOTE | 2019-11-13 09:34 | NUR ---
PT APPEARS TO BE RESTING WITH THE FIRST PART OF BLOOD ADMINISTRATION. PT APPEARS TO BE A RESTLESS SLEEPER
--- NOTE | 2019-11-13 09:45 | NUR ---
PT REQUESTING TO BE BACK IN BED AT THIS TIME. ASSISSTED PT BACK TO BED, PT STUMBLING BACK WHEN HE MOVED TOO FAST. RE-EDUCATED PT ON MOVING SLOWER WHEN HE STANDS TO PREVENT ANY MORE FALLS
--- NOTE | 2019-11-13 10:26 | NUR ---
PT PUT DEFENCE INTELLIGENCE ANALYST LIGHT TO NOTIFY THIS RN THAT HE NEEDED TO USE THE RESTROOM
--- NOTE | 2019-11-13 10:39 | NUR ---
PT BACK TO BED AT THIS TIME. PT NEEDED ASSISTANCE TO ET LEG IN BED BUT IS ABLE TO MOVE HIMSELF AROUND IN THE BED JUST FINE
--- NOTE | 2019-11-13 11:00 | NUR ---
NOTIFIED ABOUT PTS CONDITION TO BLOOD ADMIN
--- NOTE | 2019-11-13 11:07 | NUR ---
PT PUSHED CALL LIGHT CALL TO NOTIFY NURSING STAFF THAT PT WAS FEELING FAINT AND SHORT OF BREATH. GHISLAINE RN IN ROOM TO ASSESS PT. THIS RN NOTIFIED OF PTS CONDITION. THIS RN OBTAINED VITALS. LUNG SOUNDS CLEAR, NO RASH AT THIS TIME.
--- NOTE | 2019-11-13 11:15 | NUR ---
PT REPORTED SHORTNESS OF BREATH AT THE END OF UNIT 1 INFUSION. PT LUNGS ARE CLEAR, V/S ARE STABLE, GABRIELE RN PRIMARY NURSE NOTIFIED . ORDERS TO S/L AND MONITOR.
--- NOTE | 2019-11-13 11:24 | NUR ---
SUSAN REED TAKING ENTIRE SYSTEM OF BLLOD BACK TO LAB INCLUDING NORMAL SALINE, UNIT OF BLOOD, AND TUBING. PT IN ROOM APPEARS TO BE RESTING BUT ALSO APPEARS TO BE AN ACTIVE DREAMER
--- NOTE | 2019-11-13 11:45 | NUR ---
ROHIT BROWN IN PTS ROOM. PT ABLE TO USE URINAL IN BED AT THIS TIME
--- NOTE | 2019-11-13 12:00 | NUR ---
PT PUT AIR AND MISSILE DEFENSE CREWMEMBER LIGHT TO NOTIFY NURSING STAFF THAT HE HAD TO POOP. THIS RN ASSISSTED PT TO RESTROOM AND BACK. PT IMPULSIVE AND MOVES TOO QUICKLY FOR HIS BODY WHICH MAKES HIM UNSTABLE
--- NOTE | 2019-11-13 12:26 | NUR ---
URINE SAMPLE SENT TO LAB PER TRANSFUSION REACTION PROTOCOL. MEAL SITTING AT BEDSIDE. ENCOURAGED PT TO GET UP TO RECLINER FOR LUNCH. PT SAID, "I'M NOT HUNGRY, I DON'T WANT TO EAT RIGHT NOW.
--- NOTE | 2019-11-13 12:51 | NUR ---
PT RECEIVING BLOOD, SAID HE WAS FEELING ROUGH. FADED IN AND OUT, WILL RETURN
--- NOTE | 2019-11-13 15:09 | NUR ---
in pts room to give afternoon meds. pt appears to be very drowsy but is altert and oriented x4 when pt is awoken to this rn stating his name
--- NOTE | 2019-11-13 16:06 | NUR ---
PATIENT IN CHAIR, WANTED TO GO BACK TO BED, PATIENT TRANSFERRED ONE PERSON WITH [facility], PATIENT'S CRYO CUFF WAS REFILLED, NO OTHER ASSISTANCE NEEDED AT THIS TIME
--- NOTE | 2019-11-13 17:27 | NUR ---
PT. CALLED TO USE THE URINAL, HE VOIDED 100. HIS DINNER WAS AT HIS BEDSIDE, I CONVINCED HIM TO GET UP IN THE CHAIR, HE WAS RELUCTANT. CALL LIGHT IN PLACE.
--- NOTE | 2019-11-13 17:48 | NUR ---
IN PTS ROOM TO GIVE EVENING MEDS. PT STATES PAIN IS 6/10. ASKED PT IF HE WOULD LIKE SOMETHING FOR PAIN, PT STATED HE WOULD TAKE WHATEVER THIS RN WOULD GIVE HIM. THIS RN STATED THAT THIS IS NOT ALLOWED AND IF HE WANTED AN OXY THAT I COULD DO THAT. PT AGREEABLE TO 5MG OF OXY.
--- NOTE | 2019-11-13 18:29 | NUR ---
TODAY PT HAD A BLOOD INFUSION AND TOWARDS THE END OF THE INFUSION PT STATED THAT HE WAS FEELING SHORTNESS OF BREATH. INFUSION WAS STOPPED WAS NOTIFIED. THIS RN TO MONITOR PT THE REST OF THE DAY. PT WAS DROWSY ALL DAY, AWAKENS TO SOUND. PT CONFUSED TODAY BUT ALERT AND ORIENTED X4. PT NEEDED USE THE RESTROOM FREQUENTLY TODAY AND PT WAS UNSTEADY WHEN WALKING DUE TO MOVING TOO FAST
--- NOTE | 2019-11-13 18:49 | NUR ---
PT PUT SPIN TANK TENDER LIGHT TO LET NURSING STAFF KNOW THAT HE NEEDED TO POOP AGAIN
--- NOTE | 2019-11-13 20:09 | NUR ---
HELPED PT TO THE BATHROOM AND BACK TO BED WITH HIS FWW. CLEANED UP PT'S ROOM,EMPTIED GARBAGES . FILLED CRYO. BEDSIDE TABLE AND CALL LIGHT IN REACH.
--- NOTE | 2019-11-13 20:30 | NUR ---
PT VISITING WITH FRIEND IN , REPORTS BEING HUNGARY - SOUP PROVIDED. ALERT AND IN GOOD SPIRITS.
--- NOTE | 2019-11-13 20:50 | NUR ---
HELPED PT TO THE BATHROOM AND BACK TO BED WITH HIS FWW. BEDSIDE TABLE AND CALL LIGHT IN REACH. PT NEEDS NOTHING MORE AT THIS TIME.
--- NOTE | 2019-11-13 21:40 | NUR ---
1PA WITH FWW TO BATHROOM AND BACK TO BED. PT DENIES FURTHER NEEDS AT THIS TIME. CALL LIGHT IS CLOSE.
--- NOTE | 2019-11-13 21:50 | NUR ---
VITALS AND I&OS DONE AND CHARTED. BEDSIDE TABLE AND CALL LIGHT IN REACH.CLEANED UP HIS TABLE OF GARBAGE.
--- NOTE | 2019-11-13 22:30 | NUR ---
pt amb with fww to br to void and bm.
--- NOTE | 2019-11-13 22:52 | NUR ---
pt provided an IS and demonstrates 1750 inhale. enc to deep breath
--- NOTE | 2019-11-13 23:48 | NUR ---
HELPED PT TO USE HIS URINAL IN BED, HE COULD NOT MAKE IT TO THE BATHROOM IN TIME. BEDSIDE TABLE AND CALL LIGHT IN REACH. HE NEEDS NOTHING MORE AT THIS TIME.
--- NOTE | 2019-11-14 00:40 | NUR ---
pt request sleeping pill - repositioned - wm blkt to pt. lights out.
--- NOTE | 2019-11-14 00:45 | NUR ---
PT UP TO BR WITH FWW AND RN - BM WITH URGENCY AND FLATUS
--- NOTE | 2019-11-14 01:01 | NUR ---
FRESH ICE WATER GIVEN. HE NEEDS NOTHING MORE AT THIS TIME.
--- NOTE | 2019-11-14 02:06 | NUR ---
this rn assisted pt to use the urinal - void 200 clear yellow urine. denies other needs. call light in reach
--- NOTE | 2019-11-14 02:15 | NUR ---
HELPED PT USE HIS URINAL IN HIS BED. BEDSIDE TABLE AND CALL LIGHT IN REACH.
--- NOTE | 2019-11-14 03:01 | NUR ---
HELPED PT TO THE BATHROOM AND BACK TO BED WITH HIS FWW. CLEANED UP HIS SPILLED WATER ON THE FLOOR. FRESH ICE WATER GIVEN. CRYO FILLED WITH FRESH ICE. BEDSIDE TABLE AND CALL LIGHT IN REACH.
--- NOTE | 2019-11-14 04:00 | NUR ---
1pa fww to restroom and back to bed. pt denies further needs. call light is close.
--- NOTE | 2019-11-14 04:45 | NUR ---
THIS RN IN ROOM TO ANSWER CALL LIGHT, PT UNABLE TO HOLD URINE. INCONTINENT IN BED. PT UP SBA WITH FWW TO BATHROOM AND BACK TO BED. LINEN CHANGE COMPLETE, CYRO CUFF IN PLACE AND CALL LIGHT IN REACH.
--- NOTE | 2019-11-14 05:40 | NUR ---
pt used fww and walked from bathroom to after bm with this rn. denies needs - up in with call light in reach. leg wnl.
--- NOTE | 2019-11-14 06:22 | NUR ---
VITALS DONE AND CHARTED. PT SITTING IN HIS CHAIR RESTING. BEDSIDE TABLE AND CALL LIGHT IN REACH.
--- NOTE | 2019-11-14 06:44 | NUR ---
lab h/h not back yet - pt up in - denies needs
--- NOTE | 2019-11-14 07:38 | NUR ---
0715: Report received from Willow REED. Pt sleeping, call hines within reach, bed alarm is on.
--- NOTE | 2019-11-14 09:10 | NUR ---
Spoke with Javi. He is very sleepy and nodding off. Brochure for transitional care given with list of SNFs in the area. He states he would like to stay in .
--- NOTE | 2019-11-14 09:20 | NUR ---
PT STATES HIS HIP PAIN IS WELL CONTROLED BUT STATES HE HAS A AMAYA RATED AT A 5/10. PT RECEIVED SCHEDULED MEDICATIONS AT THIS TIME. THE LEFT INCISION SITE APPEARS HEALTHY WITH THE DARRIAN INTACT AND SOME OLD DRAINAGE NOTED. SOME BRUISING NOTED AT AND AROUND THE SITE. VICKY HOSE ON, CRYO, DARRIAN AND LEGS ELEVATED IN THE CHAIR. SEE ASSESSMENT.
--- NOTE | 2019-11-14 09:50 | NUR ---
FAXED TRANSITIONAL CARE STAY REQUEST FOR AUTHORIZATION TO [facility] [phone]. FAX CONFIRMATION RECEIVED 11/14/19 1004AM.
--- NOTE | 2019-11-14 11:13 | NUR ---
PT RESTING IN HIS BED AND DENIES PAIN AT THIS TIME. PT DEEP BREATHING, COUGHING AND USING HIS IS.
--- NOTE | 2019-11-14 11:45 | NUR ---
Pt sleeping at this time.
--- NOTE | 2019-11-14 12:05 | NUR ---
ANSWERED PATIENT'S CALL LIGHT. STOOD BY PATIENT IN CASE HE NEEDED HELP. PATIENT IS SITTING UP IN HIS CHAIR EATING HIS LUNCH. GOT PATIENT A FRESH CUP OF ICE WATER. ALSO PUT HIM BACK ON HIS CRYO.
--- NOTE | 2019-11-14 13:54 | NUR ---
Pt has been up and walking in the halls 3 times this shift and he states his pain level is acceptable and unchanged with the walking. Dressing remains unchanged, scd, roseann hose, jenny, heel protectors all on and running. Cryo cuff still has ice present. Pedal pulse +2. See assessment.
--- NOTE | 2019-11-14 15:07 | NUR ---
UPON ENTERING THE PT'S ROOM TO TAKE HIM FOR A WALK IT IS NOTED THAT HE IS HAVING MOIST LUNG SOUNDS WHICH ARE NOW COARSE THROUGHTOUT. IT IS NOT BELIVED THAT HE HAD ANY ASPIRATION. SAT IS 93% ON ROOM AIR AND HE DENIES ANY SOB. IN THE LAST 4 HOURS THE PT HAD 2 UNMEASURED VOIDS PLUS ONE OTHER FOR 200 ML. HE HAS TAKEN IN 200 PO FLUID AND HAS A SALINE LOCK. DR NEUMANN CALLED AND UPDATED AND A C-XRAY WAS ORDERED.
--- NOTE | 2019-11-14 15:22 | NUR ---
Awaiting auth from managed medicare for TC.
--- NOTE | 2019-11-14 17:58 | NUR ---
Pt's lung sounds are much improved with now fine crackles in all lobes. He continous to deny any sob. The pt has been getting up without assistance even after being told not to. He states he needed to get to the br quickly following the dose of lasix. He was again instructed to not get up without help and that it would be better to be incont of urine then to fall. He states understanding and remains oriented, a chair alarm was also placed.
--- NOTE | 2019-11-14 18:27 | NUR ---
Pt was up and ambulated in the halls three times this shift and up in his room many times. His pain has been very well controled and he denies any pain at this time.
--- NOTE | 2019-11-14 18:28 | NUR ---
Javi was up and ambulated in the halls three times and was up and moving around in his room many times this shift. His pain has been well controled with scheduled medications. His lungs did become coarse this afternoon and was given a dose of lasix with a large amount of urine following. His lung sounds are much improved. His sat never dropped below the 90's and he continued to deny any sob. Pt is impulsive and did get up without help after being educated as to why he should not, chair alarm was placed. The dressing remains unchanged with some old draiange noted and some bruising at the hip and thigh. No other new problems noted.
--- NOTE | 2019-11-14 19:45 | NUR ---
HELPED PT WITH HIS URINAL. FILLED CRYO CUFF WITH ICE. CLEANED UP ROOM. EMPTIED GARBAGES. REPLACED RONY ON THE BED IT WAS DIRTY. PT WOULD LIKE TO WAIT A BIT TO GET INTO BED. BEDSIDE TABLE AND CALL LIGHT IN REACH. PT IS SITTING IN HIS CHAIR WHEN I LEFT THE ROOM. HE NEEDS NOTHING MORE AT THIS TIME.
--- NOTE | 2019-11-14 20:22 | NUR ---
HELPED PT USE HIS URINAL . FOUND HIS REMOTE ON THE FLOOR AND GAVE IT TO HIM PER HIS REQUEST. BEDSIDE TABLE AND CALL LIGHT IN REACH.
--- NOTE | 2019-11-14 20:36 | NUR ---
restless, in bed, hob elevated, jenny dressing in place l hip, cryocuff, roseann hose, scds, heel protectors in place. sl RW intact. pt easily reoriented. calmer. HS med teachaing done, cont to reinforce, declines senokot and mom- "my butt hursts, i have diarrhea' stated. uses urinal, voiding frequent small amounts of yellow urine. Bed and chair alarm, fall precautions in place. Call light at hands reach
--- NOTE | 2019-11-14 21:04 | NUR ---
TARYNED PT TO THE BATHROOM WITH HIS FWW. HE WILL CALL WHEN HE IS DONE.
--- NOTE | 2019-11-14 21:16 | NUR ---
HELPED PT BACK TO BED WITH HIS FWW. PUT BACK ON HIS SCD'S, HEEL PROTECTORS AND CRYO. GAVE HIM A CLEANING TISSUE FOR HIS GLASSES. CHANGED THE RONY DUE TO URINE LEAKING ON IT. BEDSIDE TABLE AND CALL LIGHT IN REACH.
--- NOTE | 2019-11-14 21:19 | NUR ---
PT USES CALL LIGHT SAYING HE NEEDS HELP HE HAD A BM IN HIS BED.
--- NOTE | 2019-11-14 22:22 | NUR ---
PT USED HIS CALL LIGHT TO HAVE HELP GETTING UP TO GO TO THE BATHROOM. CHANGED THE CHUCKS ON THE BED SOILED WITH URINE. PT WILL CALL WHEN HE IS READY TO GO BACK TO BED.
--- NOTE | 2019-11-14 22:28 | NUR ---
HELPED PT BACK FROM THE BATHROOM WITH HIS FWW TO BED. CHANGED THE CHUCKS ON HIS BED. PUT CRYO BACK ON.BEDSIDE TABLE AND CALL LIGHT IN REACH. PT NEEDS NOTHING MORE AT THIS TIME.
--- NOTE | 2019-11-14 22:59 | NUR ---
HELPED PT WITH HIS URINAL. BEDSIDE TABLE AND CALL LIGHT IN REACH.
--- NOTE | 2019-11-14 23:37 | NUR ---
RESTING, EYES CLOSED, BED ALARM ON, AWAKES VERY OFTEN AND HAS BEEN VOIDING SMALL AMOUNTS, USES CALL LIGHT AT LEAST EVERY 10 MINUTES FOR MULTIPLE SMALL REQUESTS, FALL PRECATUIONS EXPLAINED TO PT SEVERAL TIMES, CONTIUES TO REINFORCE ., DARRIAN DRESSING L HIP WITH OLD DRAINAGE, EDEMA AT L HIP, CRYOCUFF, TEDHOSE, SCDS, HEEL PROTECTOR IN PLACE, CALL LIGHT AND FLUIDS AT BEDSIDE.
--- NOTE | 2019-11-14 23:41 | NUR ---
HELPED PT WITH THE URINAL. CALL LIGHT IN REACH.
--- NOTE | 2019-11-15 00:46 | NUR ---
helped pt use his urinal in bed then helped him to the bathroom with his fww. he will call when he is done having a bm.
--- NOTE | 2019-11-15 03:15 | NUR ---
ASSISTED PT TO RESTROOM AND BACK TO BED 1PA WITH FWW. PT IS IN BED AND DENIES FURTHER NEEDS. CALL LIGHT IS CLOSE.
--- NOTE | 2019-11-15 03:21 | NUR ---
UP TO BR, VOIDED PLUS WAS INCONTINENT OF URINE, HAD ABM IN TOILET, BACK TO BED 1PA/FWW, DRESSING L HIP WITH OLD DRAINAGE, EDEMA L HIP AND ANKLE. CRYOCUFF TO AREA, TEDHOSE, SCDS HEEL PROTECTORS IN PLACE. USES CALL LIGHT APPROPRIATELY. NO C/O PAIN WHEN ASKED. TOLERATING FLUIDS WELL, SL PATENT
--- NOTE | 2019-11-15 05:56 | NUR ---
VITALS AND I&OS DONE AND CHARTED. HELPED PT TO THE BATHROOM AND BACK TO BED WITH HIS FWW. SCD'S PLUGGED BACK IN. FRESH ICE IN THE CRYO. FRESH ICE WATER GIVEN. GARBAGES EMPTIED. BEDSIDE TABLE AND CALL LIGHT IN REACH. PT NEEDS NOTHING MORE AT THIS TIME.
--- NOTE | 2019-11-15 07:15 | NUR ---
0700: Report received from Norma REED. Pt sleeping, call hines within reach.
--- NOTE | 2019-11-15 08:42 | NUR ---
PT RESTING IN HIS CHAIR EATING BREAKFAST. HIS PAIN IS UNDER GOOD CONTROL RATING IT AT A 3/10. DRESSING UNCHANGED FROM YESTERDAY WITH OLD DRAINAGE NOTED WITH INTACT DRESSING. CRYO CUFF ON AND RUNNING, VICKY HOSE IN PLACE. PT DENIES ANY NEW PROBLEMS. LUNG SOUNDS ARE NOW CLEAR WITH DECREASED BASES AND HE DENIES ANY SOB. SEE ASSESSMENT.
--- NOTE | 2019-11-15 09:42 | NUR ---
Pt working with physical therapy at this time.
--- NOTE | 2019-11-15 10:11 | NUR ---
Mariza dressing flashing red and I was unable to get the dressing to seal. Dr Hutton called and a verbal order was received to change it which was done at this time. Mariza now functioning and flashing green. The left hip incision appears healthy with nancy in place and no excessive heat and no reddness noted. Cryo cuff refilled with ice and it was replaced at this time.
--- NOTE | 2019-11-15 10:45 | NUR ---
Pt sleeping at this time.
--- NOTE | 2019-11-15 10:48 | NUR ---
Pt just seen by Dr Hutton and is going to be discharged.
[2019-11-15] MEDS ORDERED: SENNA LAX8.6 MG PO (11:02)
[2019-11-15] MEDS ORDERED: GABAPENTIN300 MG PO (11:02)
[2019-11-15] MEDS ORDERED: OXYCODONE HCL5 MG PO (11:02)
[2019-11-15] MEDS ORDERED: ASPIRIN EC325 MG PO (11:02)
[2019-11-15] MEDS ORDERED: ULTRA-LIGHT RO1 EACH MISC (11:06)
--- NOTE | 2019-11-15 11:19 | NUR ---
SPOKE WITH DR SANCHEZ WHO STATES PATIENT IS REFUSING TO STAY HERE OR A FACILITY. HE WILL BE DISCHARGED HOME WITH OUTPATIENT THERAPY. DISCUSSED WITH HIM MY CONCERN FOR PATIENT SAFETY RETURNING HOME ALONE. HE STATES PATIENT WAS ADVISED. SPOKE WITH PATIENT IN ROOM. PATIENT IS ADAMANT ABOUT GOING HOME. LIVES IN . STATES HIS FRIENDS WILL BE HELPING HIM. HE STATES THEY HAVE FIXED A RAMP SITUATION FOR HIM TO GET INTO . DISCUSSED THAT HE NEEDS A WALKER AND A RAISED TOILET SEAT 'S TYPICALLY HAVE LOWER TOILETS. HE STATES HE HAS A DIFFERENT TOILET THAT IS 3 INCHES HIGHER THAN STANDARD. HE DOES NOT THINK HE NEEDS THIS. HE STATES THE THERAPY "LADY" TOLD ME TO GET A GRIPPER. HE STATES WE CAN GET HIM A WALKER. EXPLAINED THAT INSURANCE WILL NOT PAY FOR A GRIPPER. DISCUSSED THAT HE CAN BUY ONE OR POSSIBLY BORROW ONE AT [facility] HERE IN [facility]. GAVE HIM ADDRESS AND PHONE NUMBER. DISCUSSED THERAPY, HE STATES HIS FRIEND CAN TAKE HIM. AGAIN ASKED IF HE WOULD BE WILLING TO STAY HERE LONGER AND HE STATES HE WANTS TO GO HOME. DISCUSSED MY WORRY FOR FALLING, HE STATES HE IS GETTING AROUND HERE AND CAN DO THAT IN HIS TRAILER. ENCOURAGED HIM TO CONTACT DR SANCHEZ OFFICE IF HE HAS PROBLEMS AT HOME AND THEY CAN GET HIM INTO A FACILITY FOR CARE IF NEEDED.
--- NOTE | 2019-11-15 11:58 | NUR ---
UPDATED BY NURSING STAFF THAT DR SANCHEZ OFFICE CALLED AND THEY HAD ARRANGED HOME HEALTH AND HE IS BEING SEEN ON MONDAY. THEY DID NOT INDICATE WHICH HOME HEALTH. CALLED AND [facility] [phone] AND SPOKE WITH CARLIE. SHE STATES THEY HAVE HIS ORDERS AND ARE SCHEDULED TO START NEXT WEEK. THEY DO NOT NEED ANYTHING FROM US AT THIS TIME. SPOKE WITH PATIENT IN ROOM. HE WAS UPDATED THAT HOME [facility]ALTH FROM [facility] WILL BE CONTACTING HIM AND THEY WILL SEE HIM AT HIS FOR FOLLOW UP. HE UNDERSTADING. ASKED IF HE DECIDED TO BORROW WALKER OR HAVE ONE THROUGH INSURANCE. HE STATES TO GO AHEAD WITH INSURANCE. HE IS OK WITH [facility]. RX, CLINICALS FAXED TO [facility] [phone]. CALLED THEM [phone] AND SPOKE WITH MARKELL. SHE STATES PATIENT HAS AN ACCOUNT WITH THEM AND THEY WILL PROCESS. DISCUSSED HE WILL BE DISCHARGED TODAY.
--- NOTE | 2019-11-15 12:24 | NUR ---
PT GIVEN VERBAL AND WRITTEN DISCHARGE INSTRUCTIONS WITH A VERBAL STATEMENT OF HIS UNDERSTANDING OF THE INSTRUCTIONS. PT CONTINUES TO STATE GOOD CONTROL OF HIS PAIN. PT ASSISTED TO THE BR AT THIS TIME.
--- NOTE | 2019-11-15 14:06 | NUR ---
REPORTED TO ME THAT PATIENTS FRIEND CAME AND THEY THINK HE HAS A WALKER ALREADY. CALLED [facility], THEY STATE HE DID GET A WALKER IN 2013. THEY STATE HE WOULD PROBABLY QUALIFY FOR A NEW ONE. PATIENTS FRIEND IN [place], I SPOKE WITH HIM. TOLD HIM I CANNOT DISCHARGE THIS PATIENT WITHOUT BEING SURE HE HAS A WALKER AND WE CAN GET HIM ANOTHER. HE CALLED THE PLACE THEY LIVE, APPARENTLY THEY DO HAVE A WALKER AND PATIENT WANTS TO USE IT. PATIENTS FRIEND CALLED [facility] HIMSELF. I DISCUSSED WITH FRIEND IN [place] THAT PATIENT NEEDS THAT WALKER TO GET INTO RV. THAT HE IS NOT SAFE AND CAN FALL IF HE DOESN'T USE IT. HE STATED THEY WILL MAKE SURE HE USES IT.
--- NOTE | 2019-11-15 15:03 | NUR ---
[facility] CALLED. PATIENT DID COME BY AND PICK WALKER UP WITH FRIEND. SEBASTI[facility]N FROM [facility] CALLED WITH AUTH FOR TRANSITIONAL CARE STAY FROM TODAY THROUGH 11/22/19. DISCUSSED THAT PATIENT REFUSED TO STAY AND WENT HOME. HE STATES IF PATIENT RETURNS DURING THIS AUTH PERIOD WE CAN ADMIT HIM TRANSITIONAL CARE WITHOUT A NEW AUTH.
--- NOTE | 2019-11-18 08:19 | NUR ---
CALLED [facility] TO CHECK IF THEY NEEDED ANYTHING ELSE TO SEE PATIENT. THEY STATE THEY ADMITTED HIM OVER THE WEEKEND. THEY ARE SET TO CONTINUE AND REQUIRE NOTHING ELSE FROM US. SPOKE WITH SOLIS. [phone].
== END 2019-11-15 13:45 | disposition home or self-care (01) | DRG 470 ==
LOC: DS 05:35 → MS 12:19
PROVIDERS: ADMIT Specialist
PROC: 0SRB0JZ Replacement of Left Hip Joint with Synthetic Substitute, Open Approach (ICD-10-PCS; principal; 2019-11-11 06:45)
PROC: 30233N1 Transfusion of Nonautologous Red Blood Cells into Peripheral Vein, Percutaneous Approach (ICD-10-PCS; 2019-11-13)
DX: M16.12 Unilateral primary osteoarthritis, left hip (principal); D62 Acute posthemorrhagic anemia; G89.4 Chronic pain syndrome; I48.0 Paroxysmal atrial fibrillation; I10 Essential (primary) hypertension; F32.9 Major depressive disorder, single episode, unspecified; F41.9 Anxiety disorder, unspecified; T80.89XA Other complications following infusion, transfusion and therapeutic injection, initial encounter; R23.2 Flushing; R09.89 Other specified symptoms and signs involving the circulatory and respiratory systems; Z79.01 Long term (current) use of anticoagulants; Z79.891 Long term (current) use of opiate analgesic; Z79.899 Other long term (current) drug therapy
CPT/HCPCS: 01214; 36415; 36430; 71046; 72170; 73501; 80048; 83880; 85018; 85025; 86850; 86880; 86900; 86901; 86920; 94667; 97110; 97116; 97162; 97165; 97530; 97535; C1776; J0690; J1100; J1170; J1885; J2001; J2370; J2405; J2704; J3010; J7121; P9016

== ENCOUNTER 2020-03-31 19:47 | Emergency (ER) | payer MEDICARE, OTHER ==
[~2020-03-31] VITALS: Ht 177.8 cm; Wt 112.5 kg
[~2020-03-31 19:47] MED LIST changes: +ASPIRIN EC325 MG PO; +GABAPENTIN300 MG PO; +SENNA LAX8.6 MG PO; +ULTRA-LIGHT RO1 EACH MISC
--- OUTSIDE RECORDS SUMMARY | 2020-03-31 19:50 | XMS ---
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 Analyst Competitive Intelligence Events No recent Security Events currently on file CRITERIA MET - Group Notification - PDMP CARE PROVIDERS BRETT DALTON Physician Second Cutter 01/22/2018-Current PHONE: [phone] Cheko has no Care Guidelines for this patient. Sheila VISIT COUNT (12 MO.) 4 [facility] TOTAL 4 NOTE: Visits indicate total known visits. ED/UCC VISIT TRACKING (12 MO.) 03/31/2020 19:48 [facility] [place] TYPE: Emergency COMPLAINT: - SOB 10/04/2019 16:21 [facility] [place] TYPE: Emergency COMPLAINT: - ALTERED LOC 10/01/2019 02:14 [facility] [place] TYPE: Emergency COMPLAINT: - PANIC ATTACK DIAGNOSES: - Anxiety disorder, unspecified - Essential (primary) hypertension - Pure hypercholesterolemia, unspecified - Other correction (current) drug therapy - Panic disorder [episodic paroxysmal anxiety] 09/10/2019 14:04 [facility] [place] TYPE: Emergency COMPLAINT: - SOB DIAGNOSES: - Anxiety disorder, unspecified - Shortness of breath - Hypertensive heart disease with heart failure - Other house servant (current) drug therapy - Heart failure, unspecified - Pure hypercholesterolemia, unspecified INPATIENT VISIT TRACKING (12 MO.) 11/11/2019 12:19 [facility] [place] TYPE: Medical Surgical COMPLAINT: - LEFT TOTAL HIP REPLACEMENT (KATIA) DIAGNOSES: - Paroxysmal atrial fibrillation - Other specified symptoms and signs involving the circulatory and respiratory systems - Major depressive disorder, single episode, unspecified - Essential (primary) hypertension - Anxiety disorder, unspecified - Other correction (current) drug therapy - Flushing - Anxiety disorder, unspecified - Chronic pain syndrome - [facility] (current) use of anticoagulants - internal consultant (current) use of opiate analgesic - Other correction (current) drug therapy - Unilateral primary osteoarthritis, left hip - Other specified symptoms and signs involving the circulatory and respiratory systems - Major depressive disorder, single episode, unspecified - Chronic pain syndrome - [facility] (current) use of anticoagulants - Acute posthemorrhagic anemia - Acute posthemorrhagic anemia - [place]ushing - Other complications following infusion, transfusion and therapeutic injection, initial encounter - Paroxysmal atrial fibrillation - internal consultant (current) use of opiate analgesic - Other complications following infusion, transfusion and therapeutic injection, initial encounter 10/07/2019 09:24 [facility] [place] TYPE: Medical Surgical COMPLAINT: - ALTERED MENTAL STATUS DIAGNOSES: - Unspecified atrial fibrillation - Adverse effect of other opioids, initial encounter - Pain in unspecified hip - Other house servant (current) drug therapy - Dorsalgia, unspecified - Essential (primary) hypertension - Toxic encephalopathy - Unspecified atrial flutter - Psychophysiologic insomnia - Contact with and (suspected) exposure to other viral communicable diseases - Adverse effect of selective serotonin and norepinephrine reuptake inhibitors, initial encounter - Altered mental status, unspecified - Adverse effect of benzodiazepines, initial encounter - Panic disorder [episodic paroxysmal anxiety] - internal consultant (current) use of anticoagulants - Pure hypercholesterolemia, unspecified [email or web address]
--- NOTE | 2020-04-01 13:48 | EKG ---
[facility] [address] [place] [address] Signed Normal sinus rhythm Possible Anterior infarct , age undetermined Abnormal ECG When compared with ECG of 04-OCT-2019 16:41, Nonspecific T wave abnormality has replaced inverted T waves in Inferior leads Confirmed by VANITA CANTRELL MD ([id number]) on 04/01/2020 1:47:58 PM Electronically Signed By: VANITA CANTRELL MD 04/01/20 1348 PATIENT NAME: MOSHE ROBERTS Electrocardiogram DATE OF : 41 PHYSICIAN: VANITA CANTRELL MD REPORT #: [id number] REPORT IS CONFIDENTIAL AND NOT TO BE RELEASED WITHOUT AUTHORIZATION
== END 2020-03-31 22:15 | disposition home or self-care (01) ==
LOC: ED 19:47
DX: I11.0 Hypertensive heart disease with heart failure (principal); I50.9 Heart failure, unspecified; E78.00 Pure hypercholesterolemia, unspecified; F41.9 Anxiety disorder, unspecified; I48.91 Unspecified atrial fibrillation; Z79.899 Other long term (current) drug therapy
CPT/HCPCS: 71045; 80053; 83735; 83880; 84484; 85025; 93005; 93010; 96374; 99285-25; J1940

== ENCOUNTER 2020-04-01 13:25 | Emergency (ER) | payer MEDICARE, OTHER ==
[~2020-04-01] VITALS: Ht 177.8 cm; Wt 105.4 kg
--- OUTSIDE RECORDS SUMMARY | 2020-04-01 13:28 | XMS ---
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 Photoresist Contact Printer Events No recent Security Events currently on file CRITERIA MET - Group Notification - PDMP - [facility] - 2 Visits in 30 Days CARE PROVIDERS BRETT DALTON Physician Combat Systems Operator Mine Warfare 01/22/2018-Current PHONE: [phone] Cheko has no Care Guidelines for this patient. Sheila VISIT COUNT (12 MO.) 5 [facility] TOTAL 5 NOTE: Visits indicate total known visits. ED/UCC VISIT TRACKING (12 MO.) 04/01/2020 13:26 [facility] [place] TYPE: Emergency COMPLAINT: - SOB 03/31/2020 19:48 [facility] [place] TYPE: Emergency COMPLAINT: - SOB 10/04/2019 16:21 [facility] [place] TYPE: Emergency COMPLAINT: - ALTERED LOC 10/01/2019 02:14 [facility]i [place] TYPE: Emergency COMPLAINT: - PANIC ATTACK DIAGNOSES: - Anxiety disorder, unspecified - Essential (primary) hypertension - Pure hypercholesterolemia, unspecified - Other terminal computer operator (current) drug therapy - Panic disorder [episodic paroxysmal anxiety] 09/10/2019 14:04 [facility] [place] TYPE: Emergency COMPLAINT: - SOB DIAGNOSES: - Anxiety disorder, unspecified - Shortness of breath - Hypertensive heart disease with heart failure - Other residential (current) drug therapy - Heart failure, unspecified [...] hypertension - Anxiety disorder, unspecified - Other residential (current) drug therapy - Flushing - Anxiety disorder, unspecified - Chronic pain syndrome - oil heaterman (current) use of anticoagulants - care home (current) use of opiate analgesic - Other residential (current) drug therapy - Unilateral primary osteoarthritis, left hip - Other specified symptoms and signs involving the circulatory and respiratory systems - Major depressive disorder, single episode, unspecified - Chronic pain syndrome - care home (current) use of anticoagulants - Acute posthemorrhagic anemia - Acute posthemorrhagic anemia - [place]ushing - Other complications following infusion, transfusion and therapeutic injection, initial encounter - Paroxysmal atrial fibrillation - oil heaterman (current) use of opiate analgesic - Other complications following infusion, transfusion and therapeutic injection, initial encounter 10/07/2019 09:24 [facility] [place] TYPE: Medical Surgical COMPLAINT: - ALTERED MENTAL STATUS DIAGNOSES: - Unspecified atrial fibrillation - Adverse effect of other opioids, initial encounter - Pain in unspecified hip - Other residential (current) drug therapy - Dorsalgia, unspecified - Essential (primary) hypertension - Toxic encephalopathy - Unspecified atrial flutter - Psychophysiologic insomnia - Contact with and (suspected) exposure to other viral communicable diseases - Adverse effect of selective serotonin and norepinephrine reuptake inhibitors, initial encounter - Altered mental status, unspecified - Adverse effect of benzodiazepines, initial encounter - Panic disorder [episodic paroxysmal anxiety] - oil heaterman (current) use of anticoagulants - Pure hypercholesterolemia, unspecified [email or web address]
--- NOTE | 2020-04-02 14:13 | EKG ---
[facility] [address] [place] [address] Signed Atrial fibrillation with premature ventricular or aberrantly conducted complexes Prolonged QT Abnormal ECG When compared with ECG of 31-MAR-2020 20:01, (Unconfirmed) Atrial fibrillation has replaced Sinus rhythm Inverted T waves have replaced nonspecific T wave abnormality in Inferior leads QT has lengthened Confirmed by VANITA CANTRELL MD ([id number]) on 04/02/2020 2:12:56 PM Electronically Signed By: VANITA CANTRELL MD 04/02/20 1413 PATIENT NAME: MOSHE ROBERTS BABAR Electrocardiogram DATE OF : 41 PHYSICIAN: VANITA CANTRELL MD REPORT #: [id number] REPORT IS CONFIDENTIAL AND NOT TO BE RELEASED WITHOUT AUTHORIZATION
== END 2020-04-01 14:01 | disposition home or self-care (01) ==
LOC: ED 13:25
DX: I11.0 Hypertensive heart disease with heart failure (principal); I50.9 Heart failure, unspecified; E78.00 Pure hypercholesterolemia, unspecified; F41.9 Anxiety disorder, unspecified; I48.91 Unspecified atrial fibrillation; Z79.899 Other long term (current) drug therapy
CPT/HCPCS: 93005; 93010; 99284-25

== ENCOUNTER 2021-02-17 04:25 | Emergency (ER) | payer MEDICARE, OTHER ==
[~2021-02-17] VITALS: Ht 177.8 cm; Wt 120.0 kg
--- OUTSIDE RECORDS SUMMARY | 2021-02-17 04:28 | XMS ---
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 Communication Engineer Events No recent Security Events currently on file CRITERIA MET - PDMP - Group Notification CARE PROVIDERS BRETT DALTON Physician Machine Tool Designer 04/02/2020-Current PHONE: [phone] Cheko has no Care Guidelines for this patient. Sheila VISIT COUNT (12 MO.) 3 MALA Lafleur TOTAL 3 NOTE: Visits indicate total known visits. ED/C VISIT TRACKING (12 MO.) 02/17/2021 04:26 [facility] [place] TYPE: Emergency COMPLAINT: - ANXIETY 04/01/2020 13:26 [facility] [place] TYPE: Emergency COMPLAINT: - SOB DIAGNOSES: - Unspecified atrial fibrillation - Hypertensive heart disease with heart failure - Anxiety disorder, unspecified - Pure hypercholesterolemia, unspecified - Shortness of breath - Heart failure, unspecified - Other agronomy professor (current) drug therapy 03/31/2020 19:48 [facility] [place] TYPE: Emergency COMPLAINT: - SOB DIAGNOSES: - Other agronomy professor (current) drug therapy - Unspecified atrial fibrillation - Pure hypercholesterolemia, unspecified - Anxiety disorder, unspecified - Heart failure, unspecified - Hypertensive heart disease with heart failure - Shortness of breath INPATIENT VISIT TRACKING (12 MO.) 12/22/2020 08:19 [facility]ASH[facility] TYPE: Cardiac Surgery DIAGNOSES: - Nonrheumatic aortic (valve) stenosis - Acute on chronic diastolic (congestive) heart failure - Mixed hyperlipidemia - Presence of prosthetic heart valve - Essential (primary) hypertension - Paroxysmal atrial fibrillation - Localized edema [email or web address]
[2021-02-17] MEDS ORDERED: TORSEMIDE10 MG PO (04:56)
[2021-02-17] MEDS ORDERED: HYDROCODON-ACE1 EAC8 PO (04:57)
[2021-02-17] MEDS ORDERED: AMLODIPINE BESYL5 MG PO (04:58)
== END 2021-02-17 05:40 | disposition home or self-care (01) ==
LOC: ED 04:25
DX: F41.0 Panic disorder [episodic paroxysmal anxiety] (principal); I11.0 Hypertensive heart disease with heart failure; E78.00 Pure hypercholesterolemia, unspecified; I50.9 Heart failure, unspecified; I48.91 Unspecified atrial fibrillation; Z79.01 Long term (current) use of anticoagulants; Z79.899 Other long term (current) drug therapy
CPT/HCPCS: 96374; 99283-25; J2060

== ENCOUNTER 2021-09-05 16:46 | Emergency (ER) | payer MEDICARE, OTHER ==
[~2021-09-05] VITALS: Ht 177.8 cm; Wt 118.3 kg
[~2021-09-05 16:46] MED LIST changes: +AMLODIPINE BESYL5 MG PO; +HYDROCODON-ACE1 EAC8 PO; +TORSEMIDE10 MG PO
--- OUTSIDE RECORDS SUMMARY | 2021-09-05 16:48 | XMS ---
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 Training Lead Events No recent Security Events currently on file CRITERIA MET - Group Notification - PDMP CARE PROVIDERS BRETT DALTON Physician Cupola Charger Current PHONE: [phone] Cheko has no Care Guidelines for this patient. EJihan VISIT COUNT (12 MO.) 2 MALA Lafleur TOTAL 2 NOTE: Visits indicate total known visits. ED/UCC VISIT TRACKING (12 MO.) 09/05/2021 16:47 [facility] [place] TYPE: Emergency COMPLAINT: - DIFF BREATHING, WEAKNESS 02/17/2021 04:26 [facility] [place] TYPE: Emergency COMPLAINT: - ANXIETY DIAGNOSES: - Heart failure, unspecified - Panic disorder [episodic paroxysmal anxiety] - Other halfway (current) drug therapy - Pure hypercholesterolemia, unspecified - [facility] (current) use of anticoagulants - Unspecified atrial fibrillation - Hypertensive heart disease with heart failure - Anxiety disorder, unspecified INPATIENT VISIT TRACKING (12 MO.) 12/22/2020 08:19 [facility] DIAGNOSES: - Nonrheumatic aortic (valve) stenosis - Acute on chronic diastolic (congestive) heart failure - Mixed hyperlipidemia - Presence of prosthetic heart valve - Essential (primary) hypertension - Paroxysmal atrial fibrillation - Localized edema [email or web address]
--- NOTE | 2021-09-08 14:55 | EKG ---
[facility] [address] [place] [address] Signed Normal sinus rhythm Normal ECG When compared with ECG of 01-APR-2020 13:31, Sinus rhythm has replaced Atrial fibrillation QT has shortened Confirmed by NATALIE REYES MD ([id number]) on 09/08/2021 2:55:01 PM Electronically Signed By: NATALIE REYES MD 09/08/21 1455 PATIENT NAME: MOSHE ROBERTS Electrocardiogram DATE OF : 41 PHYSICIAN: NATALIE REYES MD REPORT #: [id number] REPORT IS CONFIDENTIAL AND NOT TO BE RELEASED WITHOUT AUTHORIZATION
== END 2021-09-05 20:26 | disposition home or self-care (01) ==
LOC: ED 16:46
DX: R06.02 Shortness of breath (principal); R53.1 Weakness; Z91.19 Patient's noncompliance with other medical treatment and regimen; I10 Essential (primary) hypertension; E78.00 Pure hypercholesterolemia, unspecified; I48.91 Unspecified atrial fibrillation; Z88.8 Allergy status to other drugs, medicaments and biological substances; Z79.899 Other long term (current) drug therapy; Z79.891 Long term (current) use of opiate analgesic
CPT/HCPCS: 36415; 71045; 80053; 81001; 83735; 83880; 84484; 85025; 93005; 93010; 99285-25

== ENCOUNTER 2021-10-28 19:59 | Emergency (ER) | payer MEDICARE, OTHER ==
[~2021-10-28] VITALS: Ht 177.8 cm; Wt 103.3 kg
--- OUTSIDE RECORDS SUMMARY | 2021-10-28 20:00 | XMS ---
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 Still Operator Helper Events No recent Security Events currently on file CRITERIA MET - PDMP - Group Notification CARE PROVIDERS BRETT DALTON Physician Multimedia Manager 04/02/2020-Current PHONE: [phone] Cheko has no Care Guidelines for this patient. Sheila VISIT COUNT (12 MO.) 3 MALA Lafleur TOTAL 3 NOTE: Visits indicate total known visits. ED/UCC VISIT TRACKING (12 MO.) 10/28/2021 19:59 [facility] [place] TYPE: Emergency COMPLAINT: - FLU SYMPTOMS 09/05/2021 16:47 [facility] [place] TYPE: Emergency COMPLAINT: - DIFF BREATHING, WEAKNESS DIAGNOSES: - Essential (primary) hypertension - apartment assistant manager (current) use of opiate analgesic - Other lining machine tender (current) drug therapy - Unspecified atrial fibrillation - Allergy status to other drugs, medicaments and biological substances - Weakness - Patient's noncompliance with other medical treatment and regimen - Shortness of breath - Pure hypercholesterolemia, unspecified 02/17/2021 04:26 [facility] [place] TYPE: Emergency COMPLAINT: - ANXIETY DIAGNOSES: - Heart failure, unspecified - Panic disorder [episodic paroxysmal anxiety] - Other lining machine tender (current) drug therapy - Pure hypercholesterolemia, unspecified - apartment assistant manager (current) use of anticoagulants - Unspecified atrial fibrillation - Hypertensive heart disease with heart failure - Anxiety disorder, unspecified INPATIENT VISIT TRACKING (12 MO.) 12/22/2020 08:19 [facility] TYPE: Cardiac Surgery DIAGNOSES: - Nonrheumatic aortic (valve) stenosis - Acute on chronic diastolic (congestive) heart failure - Mixed hyperlipidemia - Presence of prosthetic heart valve - Essential (primary) hypertension - Paroxysmal atrial fibrillation - Localized edema [email or web address]
== END 2021-10-28 23:39 | disposition home or self-care (01) ==
LOC: ED 19:59
DX: A08.4 Viral intestinal infection, unspecified (principal); E78.00 Pure hypercholesterolemia, unspecified; I11.0 Hypertensive heart disease with heart failure; I50.9 Heart failure, unspecified; Z79.899 Other long term (current) drug therapy; Z79.01 Long term (current) use of anticoagulants; Z20.822 Contact with and (suspected) exposure to COVID-19
CPT/HCPCS: 36415; 80053; 81001; 83735; 85025; 87502; 96374; 99284-25; C9803; J2405; J7040; U0003

== ENCOUNTER 2021-11-11 09:09 | Emergency (ER) | payer MEDICARE, OTHER ==
[~2021-11-11] VITALS: Ht 177.8 cm; Wt 103.6 kg
--- OUTSIDE RECORDS SUMMARY | 2021-11-11 09:12 | XMS ---
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 Family Protection Specialist Events No recent Security Events currently on file CRITERIA MET - PDMP - Group Notification - [facility] - 2 Visits in 30 Days CARE PROVIDERS BRETT DALTON Physician Setter Molding And Coremaking Machines 04/02/2020-Current PHONE: [phone] Cheko has no Care Guidelines for this patient. Sheila VISIT COUNT (12 MO.) 5 [facility] TOTAL 5 NOTE: Visits indicate total known visits. ED/UCC VISIT TRACKING (12 MO.) 11/11/2021 09:10 [facility] [place] TYPE: Emergency COMPLAINT: - FLU SYMPTOMS 11/08/2021 13:24 [facility] [place] TYPE: Emergency COMPLAINT: - FLU SYMPTOMS DIAGNOSES: - Pure hypercholesterolemia, unspecified - Allergy status to other drugs, medicaments and biological substances - Essential (primary) hypertension - Contact with and (suspected) exposure to COVID-19 - airplane tube builder (current) use of opiate analgesic - Unspecified atrial fibrillation - Hypo-osmolality and hyponatremia - Other half-way (current) drug therapy - Diarrhea, unspecified 10/28/2021 19:59 [facility] [place] TYPE: Emergency COMPLAINT: - FLU SYMPTOMS DIAGNOSES: - Other half-way (current) drug therapy - Hypertensive heart disease with heart failure - Heart failure, unspecified - Viral intestinal infection, unspecified - Contact with and (suspected) exposure to COVID-19 - Diarrhea, unspecified - Pure hypercholesterolemia, unspecified - group home (current) use of anticoagulants 09/05/2021 16:47 [facility] [place] TYPE: Emergency COMPLAINT: - DIFF BREATHING, WEAKNESS DIAGNOSES: - Essential (primary) hypertension - airplane tube builder (current) use of opiate analgesic - Other windows application administrator (current) drug therapy - Unspecified atrial fibrillation - Allergy status to other drugs, medicaments and biological substances - Weakness - Patient's noncompliance with other medical treatment and regimen - Shortness of breath - Pure hypercholesterolemia, unspecified 02/17/2021 04:26 [facility] [place] TYPE: Emergency COMPLAINT: - ANXIETY DIAGNOSES: - Heart failure, unspecified - Panic disorder [episodic paroxysmal anxiety] - Other windows application administrator (current) drug therapy - Pure hypercholesterolemia, unspecified - airplane tube builder (current) use of anticoagulants - Unspecified atrial fibrillation - Hypertensive heart disease with heart failure - Anxiety disorder, unspecified INPATIENT VISIT TRACKING (12 MO.) 12/22/2020 08:19 [facility] Juan F RASH[facility] TYPE: Cardiac Surgery DIAGNOSES: - Nonrheumatic aortic (valve) stenosis - Acute on chronic diastolic (congestive) heart failure - Mixed hyperlipidemia - Presence of prosthetic heart valve - Essential (primary) hypertension - Paroxysmal atrial fibrillation - Localized edema [email or web address]
--- NOTE | 2021-11-11 20:14 | EKG ---
[facility] [address] [place] [address] Signed Normal sinus rhythm Nonspecific T wave abnormality Prolonged QT Abnormal ECG When compared with ECG of 08-NOV-2021 15:24, premature atrial complexes are no longer present Confirmed by VANITA CANTRELL MD ([id number]) on 11/11/2021 8:13:55 PM Electronically Signed By: VANITA CANTRELL MD 11/11/212013 PATIENT NAME: MOSHE ROBERTS Electrocardiogram DATE OF : 41 PHYSICIAN: VANITA CANTRELL MD REPORT #: [id number] REPORT IS CONFIDENTIAL AND NOT TO BE RELEASED WITHOUT AUTHORIZATION
== END 2021-11-11 14:31 | disposition home or self-care (01) ==
LOC: ED 09:09
DX: R53.1 Weakness (principal); I10 Essential (primary) hypertension; E78.00 Pure hypercholesterolemia, unspecified; I48.91 Unspecified atrial fibrillation; Z88.8 Allergy status to other drugs, medicaments and biological substances; Z79.899 Other long term (current) drug therapy; Z79.891 Long term (current) use of opiate analgesic
CPT/HCPCS: 36415; 80053; 83735; 84484; 85025; 87493; 93005; 93010; 96360; 99285-25; J7030

== ENCOUNTER 2021-11-21 11:00 | Inpatient (IN) | payer MEDICARE, OTHER ==
[~2021-11-21] VITALS: Ht 177.8 cm; Wt 95.0 kg
[~2021-11-21 11:00] MED LIST changes: +NARCAN4 MG NAS
--- OUTSIDE RECORDS SUMMARY | 2021-11-21 11:06 | XMS ---
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 Certified Activities Director Events No recent Security Events currently on file CRITERIA MET - [facility] - 2 Visits in 30 Days - Group Notification - PDMP - 6 ED Visits in 6 Months CARE PROVIDERS BRETT DALTON Physician Metal Rolling Mill Operator 04/02/2020-Current PHONE: [phone] Cheko has no Care Guidelines for this patient. Sheila VISIT COUNT (12 MO.) [address] [place] [address] TOTAL 7 NOTE: Visits indicate total known visits. ED/UCC VISIT TRACKING (12 MO.) 11/21/2021 11:05 [facility] [place] TYPE: Emergency COMPLAINT: - RIB PAIN 11/17/2021 11:45 [facility] [place] TYPE: Emergency COMPLAINT: - WEAKNESS DIAGNOSES: - Allergy status to other drugs, medicaments and biological substances - Hypertensive heart disease with heart failure - Heart failure, unspecified - assisted (current) use of anticoagulants - Unspecified atrial fibrillation - Weakness - Other mcc (current) drug therapy - Hyperlipidemia, unspecified - Opioid abuse, uncomplicated 11/11/2021 09:10 [facility] [place] TYPE: Emergency COMPLAINT: - FLU SYMPTOMS DIAGNOSES: - jukebox coin collector (current) use of opiate analgesic - Other long distance billing operator (current) drug therapy - Allergy status to other drugs, medicaments and biological substances - Weakness - Pure hypercholesterolemia, unspecified - Unspecified atrial fibrillation - Essential (primary) hypertension 11/08/2021 13:24 [facility] [place] TYPE: Emergency COMPLAINT: - FLU SYMPTOMS DIAGNOSES: - Pure hypercholesterolemia, unspecified - Allergy status to other drugs, medicaments and biological substances - Essential (primary) hypertension - Contact with and (suspected) exposure to COVID-19 - assisted (current) use of opiate analgesic - Unspecified atrial fibrillation - Hypo-osmolality and hyponatremia - Other long distance billing operator (current) drug therapy - Diarrhea, unspecified 10/28/2021 19:59 [facility] [place] TYPE: Emergency COMPLAINT: - FLU SYMPTOMS DIAGNOSES: - Other long distance billing operator (current) drug therapy - Hypertensive heart disease with heart failure - Heart failure, unspecified - Viral intestinal infection, unspecified - Contact with and (suspected) exposure to COVID-19 - Diarrhea, unspecified - Pure hypercholesterolemia, unspecified - assisted (current) use of anticoagulants 09/05/2021 16:47 [facility] [place] TYPE: Emergency COMPLAINT: - DIFF BREATHING, WEAKNESS DIAGNOSES: - Essential (primary) hypertension - jukebox coin collector (current) use of opiate analgesic - Other mcc (current) drug therapy - Unspecified atrial fibrillation - Allergy status to other drugs, medicaments and biological substances - Weakness - Patient's noncompliance with other medical treatment and regimen - Shortness of breath - Pure hypercholesterolemia, unspecified 02/17/2021 04:26 [facility] [place] TYPE: Emergency COMPLAINT: - ANXIETY DIAGNOSES: - Heart failure, unspecified - Panic disorder [episodic paroxysmal anxiety] - Other long distance billing operator (current) drug therapy - Pure hypercholesterolemia, unspecified - assisted (current) use of anticoagulants - Unspecified atrial fibrillation - Hypertensive heart disease with heart failure - Anxiety disorder, unspecified INPATIENT VISIT TRACKING (12 MO.) 12/22/2020 08:19 [facility] F [place] TYPE: Cardiac Surgery DIAGNOSES: - Nonrheumatic aortic (valve) stenosis - Acute on chronic diastolic (congestive) heart failure - Mixed hyperlipidemia - Presence of prosthetic heart valve - Essential (primary) hypertension - Paroxysmal atrial fibrillation - Localized edema [email or web address]
--- NOTE | 2021-11-21 14:40 | NUR ---
[place] [id number] [place] ER STRETCHER TO BED LATERAL SLIDE - PT UNABLE TO ASSIST. PT ORIENTED TO SELF, HOSPITAL AND PCP. UNABLE TO KEEP EYES OPEN, R PUPIL LOOKS ODD - UNEVEN. COGENERATION TECHNICIAN AWARE. PT SOMULENT WHEN NOT STIMULATED CALL LIGHT IN REACH.
--- NOTE | 2021-11-21 16:04 | NUR ---
PT SOMULENT, RESP RATE REG. CALL LIGHT IN REACH
--- NOTE | 2021-11-21 16:58 | NUR ---
Patient is asleep reclined up in bed. Opens eyes to voice. Declines PT eval and tx today, shaking his head no and confirming that he is too tired today. Asks for RN assist as he has had a BM in bed. Therapist informs RN presnet at nursing station. Will attempt eval tomorrow.
--- NOTE | 2021-11-21 17:53 | NUR ---
friend ahs brought in cell phone and ice hockey coach and glasses - also concerned about dc placement for his friend.
--- NOTE | 2021-11-21 18:20 | NUR ---
CALL TO DR REYES - HE IS AWARE OF SOMUMENCE OF PT AND RIGHT EYE PUPIL UNEQUAL. FROM EYE SURGERY. DID NOT WANT ME TO GIVE NARCAN AT THIS TIME DUE TO CHRONIC PAIN AND PT HAS GOOD RESP RATE ALTHOUGH NOT AROUSABLE EXCEPT FOR PAINFUL STIMULI. THIS RN DANUTA VBG LEFT ARM WHILE HE WAS RESTING - UNDESTURBED. IV FUSING AND BELL DRAINING WELL. DOES WAKE UP WITH AGRESSIVE STIMULI BUT NOT FOR LONG.
--- NOTE | 2021-11-21 19:00 | NUR ---
SHIFT REPORT RECEIVED FROM [facility] BRIANNA HAYWOOD AT BEDSIDE. pt RESTING QUIETLY IN BED, AWOKE TO VOICE. pt ORIENTED TO NAME, PLACE. BED ALARM ON FOR SAFETY, CALL LIGHT IN REACH. IV SITE WNL, FLUIDS INFUSING DIRECTED. NEW BAG IV FLUIDS HUNG. pt DENEIS NEEDS OR CONCERNS, RR EVEN AND UNLABORED.
--- NOTE | 2021-11-21 19:18 | NUR ---
THIS CNA2 ALONG WITH RN CLEANED PT AFTER A BM. NAHUN CARE AND LINEN CHANGE PERFORMED. PT BAD TO SLEEP. CALL LIGHT IN REACH, NO OTHER CONCERNS AT THIS TIME.
--- NOTE | 2021-11-21 20:22 | NUR ---
ASSESSMENT COMPLETE, SCHEDULED MEDS GINVE WHOLE, NO ISSUES SWALLOWING NOTED. pt AWAKE AND RESTING IN BED, CAN BE FOREGETFUL AT TIMES. pt ORINETED TO SELF, PLACE, BUT REORIENTED TO DATE/TIME. BED ALARM ON FOR SAFETY, pt REPOSITIONED IN BED, PILLOW UNDER RIGHT HIP. NO REDDNESS NOTED. BELL REMAINS PATENT, SMEAR BM NOTED. NAHUN CARE DOEN WITH HELP FROM SPECIAL PROJECTS COORDINATORBRIANNA CARY. pt DENIES PAIN AND NAUSEA. DROWSINESS NOTED, BUT pt STAYS AWAKE FOR CONVERSATION. WILL CONTINUE TO MONITOR, CALL LIGHT IN REACH.
--- NOTE | 2021-11-21 22:00 | NUR ---
PT CALLED, WITH ASSIST OF SECOND PERSON, FWW, PT UP TO BS TO HAVE BM. TOLERATED WELL, UNSTEADY BUT ABLE TO WALK TO BSC. HAD 100 ML LIQUID STOOL, WITH EVIDENCE OF 3 ROUND PILLS. PT STATED HE HAS HAD LIQUID STOOLS FOR SEVERAL WEEKS. STOOL APPEARED TO BE OILY, BROWN. MUCH GAS PASSED WHILE HAVE STOOL. BACK TO BED, INDEPENDENTLY PUT LEGS INTO BED, AND REPOSITIONED SELF. CALL LIGHT EXPLAINED TO PT, LIGHTS OFF, AND BED ALARM PLACED. PERSONAL SUPPLIES WITHIN REACH.
--- NOTE | 2021-11-21 22:25 | NUR ---
ROUNDED ON pt, IV PUMP ALARMING. ISSUE RESOLVED, IV SITE WNL. FLUIDS CONTINUE TO INFUSE DIRECTED. NO NEEDS OR CONCERNS VERBALIZED, CALL LIGHT IN REACH.
--- NOTE | 2021-11-21 23:46 | NUR ---
pt RESTING QUIETLY IN BED, EYES CLOSED. RR EVEN AND UNLABORED, NO DISTRESS NOTED. CALL LIGHT INR EACH, IV FLUIDS INFUSING DIRECTED. CALL LIGHT IN REACH.
--- NOTE | 2021-11-22 01:15 | NUR ---
ROUNDED ON pt, pt RESTING AWOKE TO VOICE, STATES, "I GOTTA GO, I DON'T MATTER WHICH". pt REMINDED HE HAS A BELL, pt THEN STATES, "OH YEAH, THAT'S RIGHT". RR 24-25, EVEN AND UNLABORED, SPO2 UPPER 90'S, HR 90'S. HOB RAISED FOR COMFORT. pt DENIES SOB, CHEST PAIN. RR IMPROVED AFTER HEAD ELEVATION. NO DISTRESS NOTED. CALL LIGHT IN REACH, BED ALARM REMAINS ON FOR SAFETY.
--- NOTE | 2021-11-22 01:34 | NUR ---
DR REYES MADE AWARE OF POSITIVE PRELIMINARY BLOOD CULTURES FOR GRAM POSITIVE COCCI. NO NEW ORDERS RECEIVED AT THIS TIME.
--- NOTE | 2021-11-22 02:40 | NUR ---
scheduled cardiac med given, see emar. call light in reach, bed alarm on and crooks patent. iv site wnl, fluids infusing as directed.
--- NOTE | 2021-11-22 06:28 | NUR ---
pt heard calling out "help me", this rn and supercharger repair supervisor in room to assist. pt reports pain w/ crooks catheter, new stat lock in place for additional comfort. quoc care done. wet/moist breath sounds noted, when asked if pt feels sob pt states, "yes, i do". no distress noted, but scattered crakles noted w/ auscultation- previously clear and dim in lower lobes. crackles more so on right side. spo2 in the 90's, vss. iv fluids placed on standby per clinical judgement and hob elevated. dr perla called and updated, also discussed total intake and output for shift with md. per md, okay to place fluids on standby, repeat back to confirm. no new orders received at this time, continue to monitor. bedisde cpox in place to monitor spo2 for changes, supercharger repair supervisor foreign updated. will continue to monitor.
--- NOTE | 2021-11-22 08:07 | NUR ---
MORNING ASSESSMENT DONE. PATIENT IS DROWSEY, ABLE TO AWAKEN AND RESPOND TO QUESTIONS THEN BACK TO SLEEP. BP IS 137/72 AND PATIENT GIVEN MORNING METOPROLOL. RESPIRATIONS ARE ARE 24-26 AND PATIENT HAS OCCASIONAL MOIST COUGH AT THIS TIME, SATS ARE 97% ON ROOM AIR.
--- NOTE | 2021-11-22 08:15 | NUR ---
MORNING MEDICATIONS GIVEN, PATIENT DENIES PAIN AT THIS TIME.
--- NOTE | 2021-11-22 08:32 | NUR ---
medications reconciled
--- NOTE | 2021-11-22 08:54 | NUR ---
INTO PATIENT ROOM, PATIENT SLEEPING. PATIENT AWAKENS TO VOICE AND IS ABLE TO SAY GOOD MORING. PATIENT DRIFT BACK TO SLEEP. WILL RETURN TO ATTEMPT ASSESSMENT AT LATER TIME.
--- NOTE | 2021-11-22 10:13 | NUR ---
PATIENT GIVEN FIRST DOSE OF GASTROGRAFIN IN GATORAID, TOLERATED WELL. NEXT DOSE OF GATORAID IS DUE AT 1100. IV FLAGYL INFUSING FOR 30 MINUTES, TO BE FOLLOWED BY 1/2 MAG RIDERS. PATIENT DENIES PAIN, CONTINUES TO ENDORSE THAT HE FELL AND HAD BROKEN RIBS 2 WEEKS AGO. PATIENT THEN REPORTED THAT HE INTERMITTANTLY HAS STOMACH CRAMPS.
--- NOTE | 2021-11-22 10:26 | NUR ---
PT SITTING UP IN BED, TRAY IN FRONT WITH AM MEAL ON IT. PT HOLDING A BANANNA IN HIS HAND, PARTIALLY EATEN. PT KEEPS DRIFTING OFF, SAID HE WISHED HE COULD EAT MORE. ALSO MENTIONED HE DIDN'T FEEL WELL.HAD PRAYER WITH PT, WILL FOLLOW
--- NOTE | 2021-11-22 10:55 | NUR ---
PT UP TO BEDSIDE COMMODE W/STBY ASS BY THIS CNA2 USING A FWW. PT WAS STEADY ON FEET NO COMPLAINTS OF PAIN. NAHUN CARE WAS PERFORMED BY CNA2 AND FULL LINEN CHANGE DONE. PT BACK IN BED RESTING W/BED ALARM SET. NO OTHER REQUESTS AT THIS TIME. CALL LIGHT IN REACH.
--- NOTE | 2021-11-22 12:11 | NUR ---
PATIENT RETURNED FROM CT SCAN, CONTINUES TO BE DROWSEY. PO VANCO GIVEN.
--- NOTE | 2021-11-22 13:00 | NUR ---
PATIENT IS SLEEPING, REGULAR RESPIRATIONS.
--- NOTE | 2021-11-22 13:19 | NUR ---
BELL CATHETER REMOVED, PATIENT TOLERATED WELL.
--- NOTE | 2021-11-22 13:56 | NUR ---
PATIENT HAS ONE INCONTINENT VOID SINCE BELL HAS BEEN DISCONTINUED.
--- NOTE | 2021-11-22 14:35 | NUR ---
IV FLAGYL INFUSING FOR 30 MINUTES. PO LOPRESSOR GIVEN. PATIENT CONTINUES TO BE DROWSEY.
--- NOTE | 2021-11-22 17:43 | NUR ---
PATIENT IS SOMEWHAT MORE AWAKE THIS EVENING, IS SITTING UP IN BED AND EATING DINNER. PATIENT ABLE TO USE URINAL UNASSISTED.
--- NOTE | 2021-11-22 18:07 | NUR ---
PATIENT IN BED RESTING WITH EYES CLOSED. VITALS AND I&O'S CHARTED. CALL LIGHT IN REACH. NO FURTHER NEEDS AT THIS TIME.
--- NOTE | 2021-11-22 19:42 | NUR ---
Patient awake in bed, no distress. Patient has no needs at this time. Personal supplies and call light within reach.
--- NOTE | 2021-11-22 20:35 | NUR ---
PT. CALLED NURSES STATION REQUESTING ASSISTANCE. PT. HAD INCONTINENT EPISODE. PT. CLEANED AND BED CHANGED. FRESH BLANKET PROVIDED. CALL LIGHT LEFT WITHIN REACH. NO OTHER IMMEDIATE NEEDS AT THIS TIME.
--- NOTE | 2021-11-22 20:50 | NUR ---
PT. CALLED NURSES STATION REQUESTING HELP WITH URINAL. PT. ALSO HAD INCONTINENT BM. NAHUN CARE PROVIDED. FRESH ICE WATER PROVIDED. CALL LIGHT LEFT WITHIN REACH. NO OTHER IMMEDIATE NEEDS AT THIS TIME.
--- NOTE | 2021-11-22 22:05 | NUR ---
Tylenol 500mg po admin for reports of generalized pain.
--- NOTE | 2021-11-22 22:50 | NUR ---
PATIENT CALLED TO USE THE URINAL. PATIENT VOIDED 100ML. ICE WATER REFRESHED.
--- NOTE | 2021-11-22 23:28 | NUR ---
Patient has had urinary frequency throughout this shift. Patient denies urinary discomfort to this RN. Patient calling staff appropriately for needs. Bed alarm remains intact.
--- NOTE | 2021-11-22 23:45 | NUR ---
CALL LIGHT ANSWERED. ASSISTED TO USE THE URINAL. PATIENT STATED OOH! I POOPED! 2 PA. STEPHANIE ANNA AND THIS DRIVER COURIER. CLEANED AND APPLIED BARRIER CREAM ON RED NAHUN AREA. PATIENT BOOSTED UP IN BED. BED ALARM ON. CALL LIGHT WITHIN REACH.
--- NOTE | 2021-11-23 01:39 | NUR ---
PATIENT CALLED TO USE THE URINAL NEEDS ASSISTANCE. PATIENT VOIDED 90ML. PER PRIMARY RN WES SCAN THE BLADDER SHOWED 115ML. RN NOTIFIED.
--- NOTE | 2021-11-23 02:20 | NUR ---
PT. CALLED NURSES FOR ASSITANCE WITH URINAL. PT. ASSISTED. NAHUN CARE PROVIDED. FRESH ICE WATER AND PEPSI PROVIDED. CALL LIGHT LEFT WITHIN REACH. NO OTHER IMMEDIATE NEEDS AT THIS TIME.
--- NOTE | 2021-11-23 03:07 | NUR ---
PT. CALLED NURSES STATION REQUESTING ASSISTANCE WITH URINAL. ASSISTANCE PROVIDED, NAHUN CARE DONE, NEW DEPEND ON, ROOM TIDIED, CALL LIGHT LEFT WITHIN REACH. NO OTHER IMMEDIATE NEEDS AT THIS TIME.
--- NOTE | 2021-11-23 04:22 | NUR ---
Patient voided at this time, 100ml clear yellow urine. Patient denies further needs. Personal supplies and call light within reach.
--- NOTE | 2021-11-23 05:02 | NUR ---
ASSISTED PT. WITH URINAL. PT. I/OS AND VITALS CHARTED ACCORDINGLY. ROOM TIDIED, FRESH ICE WATER PROVIDED, TRASH CANS EMPTIED, CALL LIGHT LEFT WITHIN REACH. NO OTHER IMMEDIATE NEEDS AT THIS TIME.
--- NOTE | 2021-11-23 07:22 | NUR ---
REPORT RECIEVED FROM [employer] OPERATIONS SPECIALIST RN.
--- NOTE | 2021-11-23 07:23 | NUR ---
PATIENT UP TO COMMODE WITH 2PA AND FWW FOR SMALL SEMI-FORMED BM.
--- NOTE | 2021-11-23 07:29 | NUR ---
PATIENT UP TO CHAIR FOR BREAKFAST.
--- NOTE | 2021-11-23 07:40 | NUR ---
MORNING ASSESSMENT COMPLETE. PATIENT IS UP TO CHAIR. FINE CRACKLES NOTED IN UPPER LUNG M[place]. PATIENT DOES NOT REMEMBER PREVIOUS DAY AND TREATMENT PLAN EXPLAINED TO PATIENT. CALL LIGHT IN PATIENT'S HAND AND PATIENT IS CURRENTLY BACK TO SLEEP IN CHAIR.
--- NOTE | 2021-11-23 09:03 | NUR ---
PATIENT UP TO COMMODE TO , AMBULATED WITH FWW BACK TO BED. PATIENT AGREES TO BE UP TO CHAIR FOR ALL MEALS. BARRIER CREAM TO BUTTOCKS. LIKELY PATIENT CAN AMBULATE TO BATHROOM WITH FWW NEXT TIME. PATIENT GIVEN WARM BLANKET, BED ALARM IS ON. TYLENOL GIVEN FOR 3/10 "RIB" PAIN.
--- NOTE | 2021-11-23 11:02 | NUR ---
PT CALLED FOR ASSISTANCE TO THE RESTROOM. PT AMBULATED W/CNA2 USING A FWW. PT WAS STEADY AN NO COMPLAINTS OF PAIN. THIS CNA2 PERFORMED NAHUN CARE AFTER BM AND AMBULATED WITH PT STBY W/FWW TO THE CHAIR WHERE PHYSICAL THERAPY WAS STARTING TO WORK WITH HIM. CALL LIGHT IN REACH OF PT.
--- NOTE | 2021-11-23 12:54 | NUR ---
PATIENT STARTED ON GENTAMYCIN AND PENICILLIN ANTIBIOTICS IV, FLAGYL IV CONTINUES. PATIENT ASSISTED IN USING URINAL. PATIENT CONTINUES TO BE SLIGHTLY CONFUSED AND DROWSEY. PATIENT DOES ENDORSE THAT HE FEELS A LITTLE BETTER, BUT CANNOT REMEMBER YESTERDAY.
--- NOTE | 2021-11-23 13:38 | NUR ---
PATIENT IS HAVE AN ECHOCARDIOGRAM AT THIS TIME.
--- NOTE | 2021-11-23 14:10 | NUR ---
PT HAVING ECHOCARDIOGRAM AT THIS TIME. WILL CHECK AGAIN
--- NOTE | 2021-11-23 14:50 | NUR ---
PATIENT AMBULATED TO BR AND BACK TO BED WITH SBA AND FWW. CALL LIGHT AND PERSONAL ITEMS IN EASY REACH
--- NOTE | 2021-11-23 15:21 | NUR ---
PATIENT IS SALINE LOCKED AT THIS TIME.
--- NOTE | 2021-11-23 15:50 | NUR ---
RECD. REPORT FROM FABIOLA REED AND ASSUMED CARE OF PT.
--- NOTE | 2021-11-23 17:00 | NUR ---
OOB IN CHAIR FOR DINNER. EX DID COME TO VISIT AND HAS PROVIDED THE PAPERWORK FOR POA FOR THIS PT. AND IT WAS PLACED IN THE CHART. PT. DOES CALL FOR NEEDS.
--- NOTE | 2021-11-23 18:00 | NUR ---
ASSISTED BACK TO BED. FREQUENT URINATION WITH URINAL IN THE BED, NEEDS SOME ASSISTANCE WITH THIS. CALLS FOR NEEDS.
--- NOTE | 2021-11-23 18:51 | NUR ---
ADMITTED WITH AFIB W/RVR AND METABOLIC ENCEPHALOPATHY. RATE HAS BEEN CONTROLLED WITH LOPRESSOR AND ON ELIQUIS. BEING TREATED WITH IV ABX NOW FLAGYL AND PEN G. WBC NOW 11.3 DOWN FROM 13. ECHOCARDIOGRAM TODAY AND POSSIBLE ANSLEY TO R/O CARDIAC INFECTIOUS PROCESS. MAG REPLACED AT 1.6 AND NOW 2.1. VERY FREQUENT BM'S AND SMALL AMOUNTS OF URINE FREQUENTLY. BM'S X 7-8. SBA TO BR W/FWW. GOOD APPETITE AND ADEQUATE LIQUIDS.
--- NOTE | 2021-11-23 19:29 | NUR ---
RECEIVED REPORT FROM DAY SHIFT RN. PATIENT IS RESTING IN BED. NO NEEDS NOTED. URINAL EMPTIED. CALL LIGHT IN REACH.
--- NOTE | 2021-11-23 19:47 | NUR ---
PATIENT ASSISTED TO THE RESTROOM A 1PA W/FWW. PATIENT ABLE TO VOID AND HAVE SMALL BM. PATIENT IS BACK IN BED RESTING. NO FURTHER NEEDS NOTED. CALL LIGHT IN REACH.
--- NOTE | 2021-11-23 21:10 | NUR ---
PATIENT ASSESMENT COMPLETED. PATIENTS VITALS TAKEN AND RECORDED. PATIENTS URINAL EMPTIED. INTAKE AND OUTPUT RECORDED. PATIENT REPORTS GENERALIZED PAIN AND DENIES THE NEED FOR INTERVENTION AT THIS TIME. PATIENTS PM MEDS GIVEN PER ORDER. PATIENTS IV FLUSHED AND SL PER ORDER X3. PATIENT DENIES ANY SOB. PATIENT PROVIDED FRESH ICE WATER. NO FURTHER NEEDS NOTED. CALL LIGHT IN REACH.
--- NOTE | 2021-11-23 21:55 | NUR ---
PATIENTS URINAL EMPTIED. PATIENT DENIES ANY FURTHER NEEDS. CALL LIGHT IN REACH.
--- NOTE | 2021-11-23 22:48 | NUR ---
PATIENTS IV ABX COMPLETED INFUSING. PATIENT ASSISTED TO REPOSITION IN BED. PATIENT DENIES ANY FURTHER NEEDS. CALL LIGHT IN REACH.
--- NOTE | 2021-11-23 23:22 | NUR ---
CALL LIGHT ANSWERED. PATIENT GOT UP TO THE BATHROOM. FWW. PATIENT HAD A SMALL SOFT BM. PATIENT IS BACK IN BED. NO OTHER NEEDS AT THIS TIME. BED ALARM ON. CALL LIGHT IN REACH.
--- NOTE | 2021-11-24 00:36 | NUR ---
PATIENTS URINAL EMPTIED. PATIENT REPOSITIONED IN BED. NO FURTHER NEEDS NOTED. CALL LIGHT IN REACH.
--- NOTE | 2021-11-24 01:07 | NUR ---
PATIENT ASSISTED WITH REPOSITIONING. WARM BLANKET PROVIDED. NO FURTHER NEEDS NOTED. CALL LIGHT IN REACH. BED ALARM ON FOR SAFETY. PATIENT CONTINUES TO ASK SAME QUESTION AND IS CONFUSED ABOUT PLAN OF CARE. Pt STATED "I JUS TDONT KNOW WHAT I AM SUPPOSED TO DO, I NEED TO GET UP FOR BREAKFAST". PATIENT REORIENTED.
--- NOTE | 2021-11-24 01:29 | NUR ---
SBA PATIENT GOT UP TO THE BATHROOM. HAD SMALL BM. PATIENT IS UP IN THE CHAIR. CALL LIGHT IN REACH.
--- NOTE | 2021-11-24 01:42 | NUR ---
PATIENT IS BACK IN BED. CALL LIGHT AND SIDE TABLE WITHIN REACH.
--- NOTE | 2021-11-24 02:26 | NUR ---
PATIENT ASSISTED TO REPOSITION. PATIENTS SCHEDULED ABX INFUSING PER ORDER. PATIENT RATES PAIN "ALL OVER" 8/10, PRN TYLENOL GIVEN PER ORDER. PATIENT DENIES ANY FURTHER NEEDS. CALL LIGHT IN REACH. BED ALARM ON FOR SAFETY.
--- NOTE | 2021-11-24 03:56 | NUR ---
PATIENT ASSISTED TO RECLINER A 1PA W/FWW. PATIENTS BELONGINGS AN CALL LIGHT ARE WITHIN REACH. NO FURTHER NEEDS NOTED. CALL LIGHT IN REACH.
--- NOTE | 2021-11-24 04:16 | NUR ---
PATIENT ASSISTED FROM RECLINER BACK TO BED A 1PA W/FWW. PATIENT IS NOW RESTING IN BED. BELONGINGS AND CALL LIGHT ARAE WITHIN REACH. BED ALARM ON FOR SAFETY. NO FURTHER NEEDS NOTED. CALL LIGHT IN REACH.
--- NOTE | 2021-11-24 05:39 | NUR ---
PATIENTS VITALS TAKEN AND RECORDED. INTAKE AND OUTPUT RECORDED. AM IV ABX INFUSING PER ORDER. PATIENT DENIES ANY FURTHER NEEDS. LAB PRESENT IN ROOM. CALL LIGHT IN REACH. BED ALARM ON FOR SAFETY.
--- NOTE | 2021-11-24 06:50 | NUR ---
PATIENT ASSISTED TO THE RESTROOM A 1PA W/FWW. PATIENT HAD SMALL LOOSE BM AND ABLE TO VOID. PATIENT IS BACK IN BED RESTING. PATIENTS BELONGINGS ARE WITHIN REACH. BED ALARM ON FOR SAFETY.
--- NOTE | 2021-11-24 07:10 | NUR ---
Bedside report received from VICTOR MANUEL RN. Pt is asleep in bed. Jarrett concluded.
--- NOTE | 2021-11-24 08:20 | NUR ---
Pt is positive for C.diff. Isolation precautions implemented. Pt was made aware. [facility]
--- NOTE | 2021-11-24 10:54 | NUR ---
Pt started on oral Vancomycin.
--- NOTE | 2021-11-24 11:37 | NUR ---
Gentamycin trough scheduled for 12:30pm today.
--- NOTE | 2021-11-24 12:30 | NUR ---
Pt ate 25% of lunch. Had small liquid BM. After lunch Pt wanted to rest in bed. Stated his ribs hurt and requested Tylenol. Gentamycin trough drawn.
--- NOTE | 2021-11-24 14:00 | NUR ---
Pt requested help with the transfer to the recliner. SBA with FWW.Pt declined the need to use the restroom. Antibiotics started. Gantamycin trough was 0.5.
--- NOTE | 2021-11-24 14:32 | NUR ---
Spoke with Javi. He states he feels somewhat better today, but is exhausted. Received message from [facility] they will not have a male bed open for 10 days. I will fax the chart to [facility].
--- NOTE | 2021-11-24 15:55 | NUR ---
Dr Spencer ordered Flomax for Pt since he has frequency, especially at night. Pt was also put back on [place] (scheduled TID) and Desyrel at [facility] (both his home meds, except he takes [place] 10/325 at home). There was a question of going through withdrawal since Pt was on [place] since 2005. [place] was given and Pt reported feeling less painful, without sleepiness. Urine sample for random sodium is ordered.
--- NOTE | 2021-11-24 19:33 | NUR ---
REPORT RECEIVED ON PT. URINE SAMPLE COLLECTED AND SENT TO LAB. PT APPEAR SORIENTED , HAS CALL LIGHT IN REACH AND KNOWS TO USE IT FOR NEEDS.
--- NOTE | 2021-11-24 19:57 | NUR ---
PATIENT ASSISTED TO RESTROOM A 1PA W/FWW. PATIENT DID NOT VOID OR HAVE BM. PATIENT PASSED GAS. PATIENT IS BACK IN BED RESTING. PATIENT DENIES ANY FURTHER NEEDS. CALL LIGHT AND BELONGINGS ARE WITHIN REACH. BED ALARM ON FOR SAFETY.
--- NOTE | 2021-11-25 01:02 | NUR ---
PT WAS ASSISTED UP TO THE BATHROOM. HE WAS INCONTINENT OF URINE AND VOIDED 200 MLS. BRIEIF WAS CHANGED WELL CHUX. PT USED A FWW WITH STAFFASSSIT. HE WAS SOB WITH AMBULATION AND HAD TO SIT AT THE BEDSIDE TO CATCH HIS BREATH. HE DOES NEED HELP TO GET HIS LEGS BACK INTO BED. REINFORCED PT HAVING PHYSICAL THERAPY FOR STRENGTHENING. HE AGREED.
--- NOTE | 2021-11-25 02:28 | NUR ---
PT WAS ASSISTED TO STAND AT THE BEDSIDE TO USE HIS URINAL. HE REQUIREED ASSISTANCE TO GET BACKINTO TBED.
--- NOTE | 2021-11-25 02:50 | NUR ---
THIS FUNERAL SERVICE APPRENTICE IN ROOM TO ASSIST PT TO THE TOILET, INCONT BM AFTER PASSING GAS, CLEANED UP, PT WANTS TO SIT IN THE CHAIR, PROVIDED, CHAIR ALARM IN PLACE, NO FURTHER NEEDS AT THIS ARRON
--- NOTE | 2021-11-25 03:15 | NUR ---
IN TO ASSIST PT WITH URINAL AT BEDSIDE, PT SET OFF ALARM TRYING TO REACH URINAL, VOIDED AND BACK TO BED, BED ALARM RESUMED
--- NOTE | 2021-11-25 05:00 | NUR ---
IN TO ASSIST PT TO THE TOILET, SBA FWW, VOIDED, BACK TO BED, VS AND I&Os DONE, NO FURTHER NEEDS
--- NOTE | 2021-11-25 05:09 | NUR ---
PT'S AM LABS DRAWN FROM RIGHT SALINE LOCK AFTER FLUSHING AND WASTING 5 MLS.
--- NOTE | 2021-11-25 06:09 | NUR ---
PT HAS RECEIEVED ALL SCHEDULED ANTIBIOTICS.HIS VSS. AFEBRILE. PT HAS BEEN MAINTAINED ON ROOM AIR. HE WAS UNSURE OF HIS LOCATION UPON AWAKENING THIS AM. HE HAS BEEN UP FREQUENTLY TO VOID SMALL AMOUNTS EACH TIME. SO PT DID NOT SLEEP WELL.
--- NOTE | 2021-11-25 06:10 | NUR ---
IN TO ASSIST [T WITH URINAL, STAND AT BEDSIDE, BACK TO BED, PT NOTED TO NEED PROMPTING WITH CARES, NO FURHTER NEEDS AT THIS TIEM
--- NOTE | 2021-11-25 07:46 | NUR ---
REPORT RECEIVED FROM NIGHT RN - PT UP TO BATHROOM TO VOID USING FWW AND 1 PERSON ASSIST. PT NOT ALERT ENOUGH TO USE BATHROOM CALL LIGHT, WEAK AND SOB WITH MOVEMENT. BACK TO BED WITH BED ALARM ON.
--- NOTE | 2021-11-25 08:48 | NUR ---
RN IN ROOM TO ADMINISTER SCHEDULED MEDICATIONS AND ASSESS PT. PT STANDS AT BEDSIDE WITH ASSISTANCE TO VOID IN URINAL, SMALL AMOUNT WITH DIFFICULTY INITIATING STREAM. PT WEAK AND SOB WITH THIS ACTIVITY. PT STATES HE FEELS MORE WEAK TODAY THAN YESTERDAY. AAO X3. NOT INTERESTED IN BREAKFAST, STATES HE IS COLD AND WANTS TO WARM UP. AFEBRILE. PT ABLE TO SWALLOW MEDICATIONS WITH WATER WITHOUT DIFFICULTY. REPOSITIONED IN BED, QUITE PAINFUL "ALL OVER" BED ALARM ON. CALL LIGHT IN REACH.
--- NOTE | 2021-11-25 09:08 | NUR ---
HELPED NURSE PULL PATIENT UP IN BED. PATIENT DIDN'T WANT TO EAT RIGHT NOW.
--- NOTE | 2021-11-25 10:15 | NUR ---
RN IN ROOM TO ADMINISTER ABX - LEFT AC IV SITE TOLERATING WITHOUT DIFFICULTY. PT UP TO CHAIR CURRENTLY AFTER AMBULATING TO BATHROOM TO VOID. PT SOB AND WEAK WITH AMBULATION. PT NOW EATING BREAKFAST SLOWLY. CALL LIGHT IN LAP.
--- NOTE | 2021-11-25 11:15 | NUR ---
WALKED BY AND PATIENT WAS UP IN HIS CHAIR.
--- NOTE | 2021-11-25 12:17 | NUR ---
PT USES CALL LIGHT TO REQUEST TO GET BACK TO BED. PT AMBULATES TO BED WITH FWW. MINIMAL LUNCH EATEN. CALL LIGHT IN REACH. BED ALARM ON.
--- NOTE | 2021-11-25 12:38 | NUR ---
No change in plan for dc. Cont. to attempt to find placement in a SNF for this pt. At this time no bed available in a 60 mile radius. Awaiting response from [facility], they are unsure if they will have any beds open next week.
--- NOTE | 2021-11-25 12:48 | NUR ---
BEFORE I WENT TO LUNCH PATIENT'S FOOD GOT HERE SO I WENT IN AND SET HIM UP FOR LUNCH PATIENT WAS SITTING IN HIS CHAIR.
--- NOTE | 2021-11-25 14:00 | NUR ---
RN IN ROOM TO HANG IV ABX 1400 DOSE. PT RESTING IN BED, WAKES EASILY, UPON ENTRY. ASSESSMENT COMPLETE - UNCHANGED FROM PREVIOUS. UNABLE TO ASSESS ORIENTATION WHILE PT IS SLEEPING. CALL LIGHT IN HAND.
--- NOTE | 2021-11-25 14:38 | NUR ---
PT ATTEMPTS TO STAND BY SELF SETTING OFF BED ALARM. PT DISORIENTED TO PLACE - THINKS NURSES STATION IS A RESTURANT. PT ABLE TO VOID 50ML IN URINAL. BED ALARM ON.
--- NOTE | 2021-11-25 15:49 | NUR ---
RN IN ROOM TO ADMINISTER SCHEDULED MEDICATION - PT WATCHING TV IN BED. PT RATES PAIN 5/10 PERSISTANTLY IN BACK. PT DENIES FURTHER NEEDS AT THIS TIME. CALL LIGHT IN REACH. BED ALARM ON.
--- NOTE | 2021-11-25 17:36 | NUR ---
RN IN ROOM TO ROUND ON PT AND ADMINISTER SCHEDULED MEDS - PT UP IN CHAIR FINISHED WITH DINNER. IMPROVED APPETITE THIS EVENING. PT ORIENTED TO PLACE AND TIME BUT FORGOT EARLIER EVENTS OF THE DAY AND SEEING HIS EX . IV ABX STARTED, SITE TOLERATING WELL, SOFT CAST AT SITE TO PREVENT BENDING.
--- NOTE | 2021-11-25 19:15 | NUR ---
REPORT TAKEN ON PT. HE THOUGHT HE WAS IN A [facility]. WANTED TO GO OUTSIDE. ATTEMPTED TO REORIENT PT WHO WAS ABLE STATE HE WAS IN THE HOSPITAL. DID NOT KNOW DATE OR TIME. BED ALARM IS ON BED IN LOW POSITION. CALL LIGHT IN REACH.
--- NOTE | 2021-11-25 19:45 | NUR ---
pt family alerted lockstitch coat joiner to pt needing to get up, pt seems not to know where he wanted to go, directed to the toilet sba fww, voided and back to bed, bed alarm in place
--- NOTE | 2021-11-25 20:30 | NUR ---
bed alarm going off, visitor in room. upon entering room, pt already in bathroom. pt assisted with urinal and back in bed. bed alarm resumed and call light in reach. primary rn aware.
--- NOTE | 2021-11-25 22:15 | NUR ---
in to assist with urinal in bed, no further needs at this time
--- NOTE | 2021-11-25 22:40 | NUR ---
assist pt with urinal once more, no further needs at this time
--- NOTE | 2021-11-25 22:50 | NUR ---
PT EITHER SET OFF BED ALARM OR CALLED MULTIPLE TIMES ALRADY TO URINATE. HE DOES REQUIRE AN ASSIST AT TIMES HE HAS URINATED ON THE FLOOR.
--- NOTE | 2021-11-26 00:08 | NUR ---
DR CANTRELL AT RN STATION AND MADE AWARE OF EVENING GENTAMICIN TROUGH RESULT OF 8.6. NO NEW ORDERS RECEIVED AT THIS TIME, pt NOT GETTING ANOTHER DOSE UNTIL LATER IN THE AFTERNOON ON DAYSHIFT, PHARMACY TO DOSE.
--- NOTE | 2021-11-26 00:39 | NUR ---
PT DID NOT USE HIS CALL LIGHT. HE WAS TRYING TO GET OUT OF BED TO GO TO THE BATHROOM. HE DID NOT REMEBER HOW TO USE THE URINAL EVEN THOUGH HE HAS BEENN USING ONE.HE WAS VERY NSTEADY ON HIS FEET. VOIDED ON THE FLOOR HE COULD NOT PLACE HIS PENIS IN THE URINAL. HIS GOWN , BRIREF AND SOCKS WERE CHANGED. WHEN ASKED TO RAISE HIS LEFT FOOT PT CONTINUALLY RAISED ONLY HIS RIGHT.BED ALARM IS ON. CALLL LIGHT IN REACH. FLOOR IN ROOM WIPED.
--- NOTE | 2021-11-26 02:28 | NUR ---
BED ALARM SET OFF, PT HAS LEGS OVER THE EDGE OF THE BED, NEEDS TO VOID, URINAL PROVIDED, HAD PT PUSH SELF HIGHER IN BED, BED ALARM RESUMED
--- NOTE | 2021-11-26 02:58 | NUR ---
PT ATTEMPTED TO GET OUT OF BED TOO GO TO THE BATHROOM.BED ALARM WENT OFF. HE WAS INSTRUCTED TO MOVE HIMSELF UP IN BED, WHICH HE WAS ABLE TO DO. PT WAS ASSISED WITH URINAL USE, BUT WAS UNABLE TO PULL UP HIS BRIEF ON HIS OWN. BED ALARM ON. PT INSTRUCTED TO CALL FOR ASSIST. CALLL LIGHT IN REACH. LAC IV FLUSHED.
--- NOTE | 2021-11-26 03:44 | NUR ---
BED ALARM SET OFF, PT NEEDS TO VOID, URINAL PROVIDED, NO FURTHER NEEDS BED ALARM RESUMED
--- NOTE | 2021-11-26 04:32 | NUR ---
PT WAS INCONTINENT OF URINE. HE DID NOT CALL FOR ASSIST BUT WAS YELLING "HELP, HELP " PT WAS ASSISTED IN USING THE URINAL. HE RAISED HIMSELF UP IN BED INSTRUCTED. DID NOT KNOW HOW TO PULL UP HIS BRIEF. HE WAS CLEANED AND CHANGED. CALL LIGHT INSTRUCTION GIVEN.
--- NOTE | 2021-11-26 05:05 | NUR ---
PT'S LABS WERE DRAWN FROM HIS RIGHT AC SALINE LOCK. 5 MLS BLOOS WERE WASTED PRIOR TO BLOOD FOR LABS DRAWN.PT SLEPT THROUGHT THE PROCEDURE.
--- NOTE | 2021-11-26 06:43 | NUR ---
PT HAS HAD URINARY FREQUENCY AND INCONTINENCE. WHEN ASKED THIS AM IF HE HAS HAD A URINARY TRACT INFECTION HE REPLIED HE HAS HAD. HE STATES HE HAS SOME DISCONFORT WITH URINARY URGENCY . PT HAS NOT HAD ANY STOOL THIS SHIFT. PT HAS BEEN DISORIENTED TO PLACE, DATE AND TIME. PT HAS RECEIVED HIS SCHEDULED ABX. HIS COORDINATION APPEARS TO BE OFF HE IS NOT ABLE TO MERCHANDISING MANAGER HIS WATER AND HOLD IT TO DRINK. VSS. AFEBRILE.
--- NOTE | 2021-11-26 08:52 | NUR ---
PT AMBULATING TO BATHROOM WITH OT WHEN BECOMING LIGHTHEADED, SITTING ON THE TOILET PT WAS UNABLE TO OPEN EYES - OT STANDING AT PT SIDE TO KEEP FROM FALLING OFF TOILET. PT BACK TO BED USING GAIT BELT AND WHEELCHAIR. PT PALE AND BRADICARDIC. MD NOTIFIED AND STAT EKG ORDERED AND OBTAINED. PT ASSESSMENT NOTED NEW ONSET ABD PAIN WITH LIGHT PALPATION - MD NOTIFIED. LUNGS DIM BUT CLEAR, HR IRREGULAR. OREINTED TO SELF AND PLACE, NOT TO TIME OR SITUATION. PT COMPLETELY INC OF URINE. PT STATES HE FEELS "LIKE A SICK COWBOY", STATES HE FEELS WORSE TODAY THAN YESTERDAY. LAB IN ROOM DRAWING TROPONINS, ASSESSING PT. BED ALARM ON. CURTAIN OPEN TO VIEW PT FROM NURSES STATION.
--- NOTE | 2021-11-26 09:15 | NUR ---
INTO PATIENTS BRIAN. PATIENT SLEEPING. NO CHANGE IN DC PLAN AT THIS TIME. AWAITING POSSIBLE PLACEMENT AT WBT.
--- NOTE | 2021-11-26 09:29 | NUR ---
SEE PREVIOUS NOTE ABOUT MD NOTIFICATION. RN LEANA IN ROOM TO START IV FLUIDS. PT WAKES FREQUETLY STATING "OH I DONT FEEL GOOD!" PT UNABLE TO VERBALIZE SPECIFIC COMPLAINT. BED ALARM ON, WILL CONTINUE TO MONITOR WITH CURTAIN OPEN AT NURSES STATION.
--- NOTE | 2021-11-26 10:23 | NUR ---
RN ROUNDING ON PT - RESTING IN BED ON BACK, RR UNLABORED, WAKES SPASTIC OCCASIONALLY, BED ALARM ON. CONTINUING TO MONITOR CLOSELY.
--- NOTE | 2021-11-26 11:35 | NUR ---
PT SETS OFF BED ALARM TRYING TO GET OUT OF BED, DISORIENTED. PT INC OF URINE AND STOOL. ATTENDS CHANGED IN BED. BED ALARM ON - IV INFUSING WITHOUT DIFFICULTY.
--- NOTE | 2021-11-26 12:11 | NUR ---
PT LAYING IN BED ON BACK, HANDS RESTLESS WHILE SLEEPING. BED ALARM ON. PT ATE 1 BITE OF LUNCH AND NOT INTERESTED IN MORE. ENCOURAGED ORAL INTAKE.
--- NOTE | 2021-11-26 12:53 | NUR ---
LAB IN ROOM TO DRAW BLOOD. PT ASLEEP ON BACK.
--- NOTE | 2021-11-26 14:05 | NUR ---
RN IN ROOM TO ADMINISTER SCHEDULED MEDICATIONS - AWAKES EASILY BUT NOTABLE DECLINE IN MENTAL STATUS - PUPIL DILATION DISCREPANCY, LEFT SIDE LIMB NEGLECT WHEN GIVEN COMMANDS TO MOVE, OVERALL GENERAL INABILITY TO FOLLOW COMMADS. ORIENTED TO SELF/NAME ONLY AND OWN BIRTHDATE. NOTIFIED - STAT CT W/O CONTRAST ORDERED. VS CHARTED WITH POSITIVE ORTHOSTATICS.
--- NOTE | 2021-11-26 14:52 | NUR ---
PT OFF FLOOR TO CT
--- NOTE | 2021-11-26 15:15 | NUR ---
PT BACK FROM CT - IN ROOM - CBG TAKEN, 129. CODE STROKE CALLED PER MD REPORT OF POSITIVE CT HEMORHAGIC BLEED. PT TRANSFERED TO CCU, REPORT PROVIDED AT BEDSIDE.
--- NOTE | 2021-11-26 15:15 | NUR ---
PT. ARRIVED VIA BED FROM MS. REPORT RECIEVED FROM MS RN. DEMETRA ADMIN BY PHARMACY AND RN. NIH ASSESSMENT COMPLETED WITH A SCORE OF 11. HE IS SOMNOLENT AND DISORIENTED TO ALL BUT SELF. LLE AND LUE WEAKNESS NOTED AND DIFFERENCE IN PUPIL SIZES. IV AVX ADMIN. PT. PREPPED FOR CT AND LEFT WITH MEAGAN AND RN.
--- NOTE | 2021-11-26 16:45 | NUR ---
PT. XRAY AND EKG COMPLETED. JORDANA, FRIEND IN THE ROOM.
--- NOTE | 2021-11-26 17:00 | NUR ---
ASSESSMENT COMPLETED. PT. BRIEF AND BEDDING CHANGED PT. WAS INCONTINENT. NO NEW NEURO DEFICITS NOTED. RESTING WITH CURTAIN OPEN. VITALS STABLE.
--- NOTE | 2021-11-26 18:13 | NUR ---
THIS NURSE IN THE ROOM TO ADMIN. IV ABX. PT. PULLED RIGHT HAND IV. CLEANED AND DRESSED. BEDDING CHANGED. HE IS ORIENTED TO SELF AND DENIES PAIN.
--- NOTE | 2021-11-26 19:02 | NUR ---
PT. COMPLETED SWALLOW EVAL. SUCCESSFULLY.
--- NOTE | 2021-11-26 20:00 | NUR ---
PATIENT REPOSITIONED IN THE BED. PATIENT ATTEMPTS TO FOLLOW INSTRUCTIONS TO MOVE IN BED AND ROLL BUT IS WEAK. PATIENT ALSO REPORTS SEVERE PAIN WITH ANY CARE; INCLUDING JUAN F CARE AFTER HAVING SMALL INCONTINENTS. BERRIER CREAM APPLIED. PATIENT PROVIDED PRN NORCO FOR 8/10 PAIN IN HIS RIBS AND BACK. PATIENT TOLERATED PO MEDS WELL AND DENIED ANY FURTHER NEEDS.
--- NOTE | 2021-11-26 21:30 | NUR ---
PATIENT WENT TO CT FOR SCHEDULED SCAN. TOLERATED MODERATLEY WELL WITH SOME PAIN WITH MOVEMENT. PATIENT VS STABLE. FOLLOWS INSTRUCTIONS, IS WEAK AND NEEDS ASSIST. FALLS ASLEEP FREQUENTLY. PATIENT BACK IN ROOM. IV FLUIDS PER ORDER. IV SITES WNL X2. CALL LIGHT IN REACH. BED ALARM ACTIVE.
--- NOTE | 2021-11-26 23:42 | NUR ---
UPDATE GIVEN TO PATIENT'S SON; AMEYA.
--- NOTE | 2021-11-27 00:18 | NUR ---
PATIENT RESTING IN BED. ALERTS TO STAFF IN ROOM. PATIENT VERBALIZES THAT HE DOESN'T REMEMBER EVERYTHING BUT REMEMBERS THE "BASICS". PATIENT AWARE OF HIS SURROUNDINGS AND CAN REPORT HIS FAMILY MEMBERS NAMES. PATIENT REMEMBERS WHO VISIT HIM TODAY INCLUDING HIS EX . PATIENT REPORTS PAIN WITH ANY TOUCH. DENIES NEED TO VOID BUT ATTENDS IS SATURATED. NEW ATTEND IN PLACE AND BARRIER CREAM APPLIED. PATIENT ENCOURAGED TO USE THE URNAL; VOIDED 75 ADDITIONAL MLS. PATIENT'S SKIN TEAR ON LEFT ELBOW IS LEAKING AROUND THE DRESSING. NON-ADHEARANT DRESSING APPLIED WITH MEDI-HONEY AND WRAPPED WITH COBAN. PATIENT DOES NOT TOLERATE ADHESIVE WELL. REPOSITIONED PATIENT AND PROVIDED WARM BLANKET.
--- NOTE | 2021-11-27 03:04 | NUR ---
PATIENT MORE RESTLESS IN BED. ASSISTED PATIENT TO REPOSITION. ATTENDS SATURATED WITH URINE. PATIENT VOIDED 100MLS IN URNAL. ATTENDS CHANGED. BERRIER CREAM APPLIED. PATIENT REMOVED HIS NEW DRESSING ON SKIN TEAR ON LEFT ELBOW. APPLIED PETROLEUM GAUZE AND WRAPPED IN CAST PADDING. PATIENT TOLERATED WELL.
--- NOTE | 2021-11-27 05:00 | NUR ---
PATIENT ATTEMPTING TO MOVE LEGS OUT OF BED. PATIENT REPORTS NEED TO VOID. ASSISTED WITH URNAL. ATTENDS SATURATED. NAHUN CARE DONE WITH BARRIER CREAM APPLIED. PATIENT ABLE TO LIFT HIS HIPS. LAB IN ROOM FOR BLOOD DRAW. FIRST SET OF CULTURES DRAWN FROM NEW IV SITE ESTABLISHED BY THIS RN. SECOND SET WERE COLLECTED FROM IV SITE IN LEFT AC. CLAVE REMOVED AND REPLACED FOR COLLECTION; DONE PER PROTOCOL. BLOOD DRAW PLACED IN BOTTLES AND LABELED BY LAB STAFF. PATIENT TOLERATED WELL. IV FLUIDS AND ABX PER ORDER.
--- NOTE | 2021-11-27 07:30 | NUR ---
REPORT RECEIVED FROM ROGER REED. PT RESTING IN BED WITH EYES CLOSED, RESP EVEN AND UNLABORED, HR 70'S, AFIB, RR 22.
--- NOTE | 2021-11-27 08:15 | NUR ---
IN TO DO ASSESSMENT, PT IS VERY DROWSY BUT DOES AWAKE TO REPEATED VERBAL STIMULI. ATTEMPTED TO DO NIH SCALE BUT PT NOT FOLLOWING MOST COMMANDS HE SEEMS TO BE DRIFTING BACK TO SLEEP BEFORE HE CAN PERFORM TASKS OR ANSWER QUESTIONS. WAS NOT ABLE TO ANSWER HIS NAME OR YEAR, JUST FELL BACK TO SLEEP. WAS ABLE TO HOLD BOTH ARMS OUT FOR APPROX 5 SECONDS, LEFT DROPPED AFTER 2 SECONDS, THEN BOTH DROPPED PT FELL ASLEEP. COULD NOT HOLD LEFT LEG UP AT ALL. PT DENIES PAIN, DENIES HEADACHE. LUNGS CLEAR. PT INC URINE, ATTENDS CHANGED AND BARRIER CREAM APPLIED, PT REPOSITIONED UP IN BED.
--- NOTE | 2021-11-27 08:17 | EKG ---
[facility] [address] [place] [address] Signed Atrial fibrillation with premature ventricular or aberrantly conducted complexes Nonspecific ST and T wave abnormality Prolonged QT Abnormal ECG No previous ECGs available Confirmed by VANITA CANTRELL MD ([id number]) on 11/27/2021 8:16:55 AM Electronically Signed By: VANITA CANTRELL MD 11/27/21 0817 PATIENT NAME: ROBERTSMOSHE Electrocardiogram DATE OF : 41 PHYSICIAN: AVNITA CANTRELL MD REPORT #: [id number] REPORT IS CONFIDENTIAL AND NOT TO BE RELEASED WITHOUT AUTHORIZATION
--- NOTE | 2021-11-27 08:18 | EKG ---
[facility] [address] [place] [address] Signed Atrial fibrillation T wave abnormality, consider anterior ischemia Prolonged QT Abnormal ECG When compared with ECG of 17-NOV-2021 12:24, Non-specific change in ST segment in Inferior leads Inverted T waves have replaced nonspecific T wave abnormality in Anterior leads Confirmed by VANITA CANTRELL MD ([id number]) on 11/27/2021 8:17:49 AM Electronically Signed By: VANITA CANTRELL MD 11/27/21 0818 PATIENT NAME: CLAUDIO ROBERTSRanjeet EKCERT Electrocardiogram DATE OF : 41 PHYSICIAN: VANITA CANTRELL MD REPORT #: [id number] REPORT IS CONFIDENTIAL AND NOT TO BE RELEASED WITHOUT AUTHORIZATION
--- NOTE | 2021-11-27 08:45 | NUR ---
DR CANTRELL ROUNDING ON UNIT, IN TO SEE PT AND DISCUSS PLAN OF CARE- CONTINUE ANTIBIOTICS AND POSSIBILITY OF PICC LINE.
--- NOTE | 2021-11-27 10:42 | NUR ---
PT HAS NOW BECOME SOMEWHAT RESTLESS, STILL LYING WITH EYES CLOSED BUT IS MOVING ARMS INCLUDING LEFT ARM AROUND, GRABBING AT THINGS AT PUTTING HIS ARMS UP ABOVE HIS HEAD. IN TO GIVE ANTIBIOTICS, HE IS STILL TALKING WITH EYES CLOSED FOR THE MOST PART, CAN NOT ANSWER WHERE HIS IS AT. THIS TIME HE WAS ABLE TO WAKE UP ENOUGH TO TAKE PILL. DENIES PAIN OR OTHER NEEDS.
--- NOTE | 2021-11-27 11:16 | NUR ---
PT YELLED OUT "NURSE", FOR ASSIST IN USING URINAL. WAS ABLE TO VOID SMALL AMOUNT BUT ALREADY WAS INC OF URINAL, PAD CHANGED. PT ASKED HOW HE WAS FEELING AND HE STATES "NOT REAL GOOD", BUT UNABLE TO PROVIDE FURTHER DETAILS. BACK TO SLEEP.
--- NOTE | 2021-11-27 13:28 | NUR ---
PT REPOSITIONED IN BED. NO OTHER NEEDS AT THIS TIME. RAILS UP, DOOR OPEN, CALL LIGHT IN REACH.
--- NOTE | 2021-11-27 14:15 | NUR ---
IN TO CHECK ON PT, PT IS A BIT MORE RESPONSIVE THAN EARLIER THIS MORNING. INC OF STOOL AND URINE, ATTENDS AND LINENS CHANGED, PT IS ABLE TO ANSER THAT HE IS IN THE [facility]. BED BATH GIVEN.
--- NOTE | 2021-11-27 16:00 | NUR ---
PT CALLED OUT FOR NURSE, STATES HE NEEDS TO HAVE BOWEL MOVEMENT. UP WITH 2PA TO BSC FOR LARGE BOWEL MOVEMENT. PT WAS ABLE TO PUT WEIGHT ON LEFT LEG AND USE IT. LEFT ARM WEAK, NOT ABLE TO USE MUCH. PT ASSISTED BACK TO BED. PT MORE AWAKE AND OVERALL STRONGER THEN EARLIER.
--- NOTE | 2021-11-27 18:00 | NUR ---
PT HAS EATEN TWO JELLOWS AND AN ENSURE, TOLERATING WELL. AWAKE IN BED, DENIES PAIN OR OTHER NEEDS.
--- NOTE | 2021-11-27 20:00 | NUR ---
PATIENT UP TO THE BSC. 1PA; PATIENT IS UNSTEADY BUT ABLE TO STAND AND FOLLOW INSTRUCTIONS. PATIENT VOIDED AND HAD SMALL MUCOUS BM. NEW LINEN AND GOWN APPLIED. PATIENT RETURNED TO BED. BERRIER CREAM AND NEW ATTEND IN PLACE. IV SITES WNL X2. IV FLUIDS PER ORDER. PATIENT REPORTS GENERAL ACHES AND PAIN; MORE IN HIS LEFT ARM AND HIS BACK WITH MOVEMENT. PATIENT'S LUNGS ARE CLEAR; DIM ON THE LEFT IN UPPER AND LOWER LOBES. ENCOURAGE COUGH AND DEEP BREATHING. SKIN CONCERNS ON EDUARDO ELBOWS ARE CURRENTLY COVERED WITH DRESSINGS. VS WNL. PATIENT ABLE TO TELL ME THE NAME OF THE HOSPITAL, [facility] TO REMEMBER THE REASON FOR HIS ADMISSION OR THE YEAR. PATIENT IS DROWSY BUT ALERTS EASILY. CALL LIGHT IN REACH.
--- NOTE | 2021-11-27 21:30 | NUR ---
PATIENT PROVIDED WITH SCHEDULED MEDS. ABLE TO HOLD HIS MED CUP AND WATER WITH MINIMAL INSTRUCTIONS. PATIENT DENIED ANY OTHER NEEDS. RESTING IN BED. HOB AT 30 DEGREES.
--- NOTE | 2021-11-27 22:20 | NUR ---
PATIENT CALLED FOR ASSISTANCE TO VOID. URNAL USED. PATIENT VOIDED 100MLS CLEAR YELLOW URINE. NO OTHER NEEDS AT THIS TIME.
--- NOTE | 2021-11-27 22:50 | NUR ---
PATIENT REPORTS HAVING DIFFICULTY BREATHING. PATIENT'S LUNGS ARE CLEAR, O2 SAT 96% ON ROOM AIR. RR 22. 1L NC PLACED AND ASSISTED PATIENT TO REPOSITION IN BED. PATIENT REPORTS FEELING BETTER, SpO2 98%. LEFT NC IN PLACE FOR NOW.
--- NOTE | 2021-11-28 00:15 | NUR ---
PATIENT APPEARS TO BE RESTING COMFORTABLY. FREQUENTLY WILL CALL OUT FOR "NURSE" TO USE THE URNAL AND IS ABLE TO VOID 75-100 MLS. QUICK CHANGE PAD USED AND WEIGHT OBTAINED FOR FREQUENT SMALL VOIDS AND ACCURATE I&O'S. VS STABLE.
--- NOTE | 2021-11-28 04:00 | NUR ---
PATIENT CONTINUES TO HAVE MORE VARIBILITY IN HIS HR. AFIB; MOSTLY 80-90'S. OCCATIONAL UP TO 130'S NON SUSTAINED WHEN PATIENT IS BECOMING RESTLESS AND NEEDS TO VOID. BP STABLE.
--- NOTE | 2021-11-28 06:15 | NUR ---
PATIENT ASSISTED TO USE THE URNAL. ATTENDS CHANGED. BARRIER CREAM APPLIED. POSITIONED PATIENT TO HIS LEFT SIDE. PATIENT DECLINED TO TRANSFER TO THE RECLINER. PATIENT IS DROWSY BUT ALERTS EASILY AND IS ORIENTED TO SELF AND SURROUNDINGS. IMPULSIVE AND FORGETFUL. IV FLUIDS PER ORDER; SITE WNL. VS STABLE.
--- NOTE | 2021-11-28 07:30 | NUR ---
REPORT RECEIVED FROM ROGER REED. PT RESTING IN BED WITH EYES CLOSED. RESTING HR 90-120'S AFIB, RR 14, RESP EVEN AND UNLABORED.
--- NOTE | 2021-11-28 07:45 | NUR ---
PT CALLS OUT FOR NURSE, "I NEED TO GO REAL BAD", ASSITED WITH URINAL TO VOID 175ML LIGHT COLORED URINE. ASSESSMENT DONE, PT IS ABLE TO ANSWER THAT HE IS IN THE HOSPITAL AND [facility]. SOMEWHAT DROWSY THIS MORNING, FALLING BACK TO SLEEP BETWEEN ASSESSMENT QUESTIONS. DENIES PAIN, WHEN ASKED IF HE IS HAVING PAIN HE THINKS ABOUT IT A SECOND AND THEN SAYS "NO, I DONT THINK SO". LUNGS CLEAR. IVF INFUSINGA T 65ML/HR. GAVE PT SOME JELLO WHICH HE ATE ALL OF WITH NO PROBLEMS AND SOME SIPS OF ENSURE, AM MEDS GIVEN INCLUDING NEW ORDER FOR METOPROLOL. PT BACK TO SLEEP.
--- NOTE | 2021-11-28 08:53 | NUR ---
PHYSICAL THERAPIST IN WORKING WITH PT.
--- NOTE | 2021-11-28 10:01 | NUR ---
DR REYES IN TO SEE PT, VISITOR ALSO IN TO SEE PT
--- NOTE | 2021-11-28 10:56 | NUR ---
PT NOW RESTING IN BED, HR HAS BEEN IN THE 60-70'S AFIB.
--- NOTE | 2021-11-28 11:02 | NUR ---
SON AMEYA IN TO SEE PT
--- NOTE | 2021-11-28 12:07 | NUR ---
PT TAKEN DOWN TO CT FOR HEAD CT WITH THIS RN, BACK INTO ROOM AND ASSISTED WITH SITTING UP FOR LUNCH. PT CONTINUES TO BE MORE INTERACTIVE TODAY, IN A SOMEWHAT CHEERFUL MOOD, NO INCREASE IN NEURO DEFICITS, LUNGS REMAIN CLEAR, NO C/O SOB TODAY. HR 80'S, AFIB.
--- NOTE | 2021-11-28 14:05 | NUR ---
PT AWAKE, ASKS TO USE URINAL, HAD ALSO BEEN INCONTINENT OF URINE, PAD CHANGED. SON BACK IN TO VISIT, HR 90-100, WILL GIVE SCHEDULED METOPROLOL NOW.
--- NOTE | 2021-11-28 15:51 | NUR ---
PT CALLED TO HAVE BOWEL MOVEMENT, UP TO BSC WITH 1PA, DID MOST OF THE WORK OF STANDING AND TRANSFERRING ON HIS OWN. HAD MED/SMALL BROWN MUCOUSY BOWEL MOVEMENT, NAHUN CARE DONE, BACK TO BED. PT LOOKING TIRED, STATES HE IS WANTING TO TAKE A NAP. CALL LIGHT IN LAP.
--- NOTE | 2021-11-28 19:30 | NUR ---
CALL LIGHT ANSWERED. ASSISTED IN USING URINAL. CHANGED ATTENDS. 2 PA BOOSTED UP IN THE BED.
--- NOTE | 2021-11-28 19:49 | NUR ---
[facility] UNABLE TO TRANSPORT TONIGHT PER LURER
--- NOTE | 2021-11-28 20:00 | NUR ---
PATIENT AND FAMILY AWARE OF PLAN TO TRANSFER PATIENT TONIGHT. ALL QUESTIONS ANSWERED BY THIS RN AND . PATIENT IS [id number]. FORGETFUL OF SOME DETAILS BUT MORE ALERT THAN PREVIOUS SHIFT. TOLERATING ROOM AIR. VS STABLE. DENIES PAIN. ATTENDS IN PLACE, PATIENT CONTINENT BUT DRIBBLES URINE. BERRIER CREAM APPLIED TO GROIN FOLDS. SKIN INTACT. DRESSINGS ON EDUARDO ELBOWS AND CDI. IV SITES WNL X2.
== END 2021-11-28 21:55 | disposition short-term general hospital (02) | DRG 871 ==
LOC: ED 11:00 → MS 13:18 → CCU 11-26 15:18
PROVIDERS: ADMIT Internal Medicine; ATTEND Internal Medicine
PROC: 30283B1 Transfusion of Nonautologous 4-Factor Prothrombin Complex Concentrate into Vein, Percutaneous Approach (ICD-10-PCS; principal; 2021-11-26)
DX: A41.9 Sepsis, unspecified organism (principal); G93.41 Metabolic encephalopathy; G93.6 Cerebral edema; S06.6X0A Traumatic subarachnoid hemorrhage without loss of consciousness, initial encounter; E22.2 Syndrome of inappropriate secretion of antidiuretic hormone; A04.72 Enterocolitis due to Clostridium difficile, not specified as recurrent; I48.21 Permanent atrial fibrillation; E87.6 Hypokalemia; Z20.822 Contact with and (suspected) exposure to COVID-19; E86.0 Dehydration; G47.00 Insomnia, unspecified; E83.42 Hypomagnesemia; R29.6 Repeated falls; I10 Essential (primary) hypertension; M54.9 Dorsalgia, unspecified; G89.29 Other chronic pain; F41.9 Anxiety disorder, unspecified; E78.00 Pure hypercholesterolemia, unspecified; Z96.642 Presence of left artificial hip joint; Z95.2 Presence of prosthetic heart valve; Z98.890 Other specified postprocedural states; Z88.8 Allergy status to other drugs, medicaments and biological substances; Z79.01 Long term (current) use of anticoagulants; Z79.899 Other long term (current) drug therapy; W18.39XA Other fall on same level, initial encounter
CPT/HCPCS: 36415; 51702; 70450; 70496; 70498; 71045; 74177; 80048; 80053; 80061; 80170; 81001; 82378; 82553; 82803; 83605; 83735; 83930; 83935; 84300; 84484; 84550; 85025; 86140; 86431; 87040; 87077; 87186; 87502; 93005; 93010; 93306; 97110; 97162; 97166; 97535; 99285-25; A9270; C9803; J0290; J0696; J1580; J2540; J3475; J7030; J7060; J7121; J7168; Q9967; U0003

== ENCOUNTER 2022-02-24 06:16 | Emergency (ER) | payer MEDICARE, OTHER ==
[~2022-02-24] VITALS: Ht 177.8 cm; Wt 99.0 kg
--- OUTSIDE RECORDS SUMMARY | 2022-02-24 06:18 | XMS ---
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 Wire Steward Events No recent Security Events currently on file CRITERIA MET - 6 ED Visits in 6 Months - PDMP - Group Notification CARE PROVIDERS Myra Jacobson Us Customs And Border Officer/Truck Body Builder 01/26/2022-Current PHONE: [phone] ELA WEISS Wire Communications Engineer Current NIXON Tarango PHONE: [phone] KARRI MONREAL Internal Medicine Current PHONE: [phone] YUVAL DE LA CRUZ Nurse Practitioner: Family Current PHONE: Unknown DANA KIRK Internal Medicine Current PHONE: [phone] BRETT DALTON Physician Track Rider 04/02/2020-Current PHONE: [phone] GERRY GOLDBERG I. Physician Track Rider Current PHONE: Unknown YUE SHIRLEY Nurse Practitioner Current PHONE: Unknown BECKY JENSEN Nurse Practitioner Current MARIA ELENA PHONE: [phone] [facility] PHONE: Unknown [facility] Current PHONE: [phone] Cheko has no Care Guidelines for this patient. Sheila VISIT COUNT (12 MO.) 7 MALA Lafleur TOTAL 7 NOTE: Visits indicate total known visits. 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 - Unspecified atrial fibrillation - Heart failure, unspecified - Allergy status to other drugs, medicaments and biological substances - Hyperlipidemia, unspecified - Weakness - terminal gauger supervisor (current) use of anticoagulants - Hypertensive heart disease with heart failure - Opioid abuse, uncomplicated - Contact with and (suspected) exposure to COVID-19 11/11/2021 09:10 [facility]A [facility] [place] TYPE: Emergency COMPLAINT: - FLU SYMPTOMS DIAGNOSES: - Unspecified atrial fibrillation - Weakness - Other termite control representative (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) 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 therapy - Essential (primary) hypertension - Pure hypercholesterolemia, unspecified - Allergy status to other drugs, medicaments and biological substances - halfway (current) use of opiate analgesic 11/08/2021 13:24 MAL[facility] Sethi [place] TYPE: Emergency COMPLAINT: - FLU SYMPTOMS DIAGNOSES: - Other senior care (current) drug therapy - Unspecified atrial fibrillation - Contact with and (suspected) exposure to COVID-19 - Allergy status to other drugs, medicaments and biological substances - Diarrhea, unspecified - Hypo-osmolality and hyponatremia - halfway (current) use of opiate analgesic - Essential (primary) hypertension - Pure hypercholesterolemia, unspecified 10/28/2021 19:59 MALA Sethi [place] TYPE: Emergency COMPLAINT: - FLU SYMPTOMS DIAGNOSES: - halfway (current) use of anticoagulants - Diarrhea, unspecified - Viral intestinal infection, unspecified - Hypertensive heart disease with heart failure - Pure hypercholesterolemia, unspecified - Contact with and (suspected) exposure to COVID-19 - Heart failure, unspecified - Other senior care (current) drug therapy 09/05/2021 16:47 MALA Sethi [place] TYPE: Emergency COMPLAINT: - DIFF BREATHING, WEAKNESS DIAGNOSES: - Shortness of breath - Weakness - Unspecified atrial fibrillation - terminal gauger supervisor (current) use of opiate analgesic - Pure hypercholesterolemia, unspecified - Patient's noncompliance with other medical treatment and regimen - Allergy status to other drugs, medicaments and biological substances - Other senior care (current) drug therapy - Essential (primary) hypertension INPATIENT VISIT TRACKING (12 MO.) 11/29/2021 00:00 [facility] [place] TYPE: Medical Surgical DIAGNOSES: - Enterococcus as the cause of diseases classified elsewhere - Evaluation for infected endocarditis - Bacteremia - Infected endocarditis - Enterococcus as the cause of diseases classified elsewhere - Bacteremia 11/21/2021 13:[address] [facility] [place] TYPE: Critical Care COMPLAINT: - ATRIAL FIBRILLATIOJ RVR, ENCEPHALOPATHY DIAGNOSES: - Allergy status to other drugs, medicaments and biological substances - Anxiety disorder, unspecified - Permanent atrial fibrillation - Enterocolitis due to Clostridium difficile, not specified as recurrent - Cerebral edema - Other chronic pain - Presence of prosthetic heart valve - Metabolic encephalopathy - Dehydration - Anxiety disorder, unspecified - Traumatic subarachnoid hemorrhage without loss of consciousness, initial encounter - Cerebral edema - Other termite control representative (current) drug therapy - Repeated falls - Sepsis, unspecified organism - Contact with and (suspected) exposure to COVID-19 - Permanent atrial fibrillation - Pure hypercholesterolemia, unspecified - Presence of prosthetic heart valve - Contact with and (suspected) exposure to COVID-19 - Hypomagnesemia - Metabolic encephalopathy - Other fall on same level, initial encounter - Essential (primary) hypertension - Hypokalemia - Other fall on same level, initial encounter - Dorsalgia, unspecified - Hypomagnesemia - terminal gauger supervisor (current) use of anticoagulants - Insomnia, unspecified - Repeated falls - Dorsalgia, unspecified - Other specified postprocedural states - Dehydration - Insomnia, unspecified - Unspecified atrial fibrillation - Bacteremia - Bacteremia - Other specified postprocedural states - Syndrome of inappropriate secretion of antidiuretic hormone - Allergy status to other drugs, medicaments and biological substances - Other senior care (current) drug therapy - Essential (primary) hypertension - Presence of left artificial hip joint - Pure hypercholesterolemia, unspecified - Presence of left artificial hip joint - Syndrome of inappropriate secretion of antidiuretic hormone - Other chronic pain - Traumatic subarachnoid hemorrhage without loss of consciousness, initial encounter - halfway (current) use of anticoagulants - Hypokalemia - Enterocolitis due to Clostridium difficile, not specified as recurrent [email or web address]
[2022-02-24] MEDS ORDERED: ONDANSETRON ODT4 MG PO (06:38)
--- NOTE | 2022-02-25 | EKG ---
[facility] [address] [place] [address] Signed Normal sinus rhythm Normal ECG When compared with ECG of 26-NOV-2021 16:48, Sinus rhythm has replaced Atrial fibrillation T wave inversion no longer evident in Anterior leads Confirmed by VANITA CANTRELL MD ([id number]) on 02/24/2022 11:59:54 PM Electronically Signed By: VANITA CANTRELL MD 02/25/22 0000 PATIENT NAME: MOSHE ROBERTS Electrocardiogram DATE OF : 41 PHYSICIAN: VANITA CANTRELL MD REPORT #: [id number] REPORT IS CONFIDENTIAL AND NOT TO BE RELEASED WITHOUT AUTHORIZATION
[2022-02-25] MEDS ORDERED: ALPRAZOLAM0.5 MG PO (14:02)
[2022-02-25] MEDS ORDERED: VANCOMYCIN HCL125 MG PO (14:03)
[2022-02-25] MEDS ORDERED: ATORVASTATIN CA10 MG PO (14:04)
[2022-02-25] MEDS ORDERED: ESCITALOPRAM OX20 MG PO (14:04)
[2022-02-25] MEDS ORDERED: TAMSULOSIN HCL0.4 MG PO (14:04)
[2022-02-25] MEDS ORDERED: DOXEPIN HCL10 MG PO (14:04)
[2022-02-25] MEDS ORDERED: HYDROCODON-ACE1 EAC8 PO (14:05)
[2022-02-25] MEDS ORDERED: NALOXONE HCL4 MG NAS (14:06)
== END 2022-02-24 09:00 | disposition home or self-care (01) ==
LOC: ED 06:16
DX: R11.0 Nausea (principal); E83.42 Hypomagnesemia; E78.00 Pure hypercholesterolemia, unspecified; I48.91 Unspecified atrial fibrillation; I50.9 Heart failure, unspecified; Z88.8 Allergy status to other drugs, medicaments and biological substances; Z79.899 Other long term (current) drug therapy
CPT/HCPCS: 36415; 80053; 81001; 83735; 85025; 93005; 93010; 96365; 96375; 99283-25; J2405; J3475

== ENCOUNTER 2022-02-25 10:48 | Inpatient (IN) | payer MEDICARE, OTHER ==
[~2022-02-25] VITALS: Ht 177.8 cm; Wt 98.6 kg
[~2022-02-25 10:48] MED LIST changes: +ONDANSETRON ODT4 MG PO
--- OUTSIDE RECORDS SUMMARY | 2022-02-25 10:50 | XMS ---
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 [employer] T[employer] Developer Events No recent Security Events currently on file CRITERIA MET - 6 ED Visits in 6 Months - Group Notification - PDMP - [facility] - 2 Visits in 30 Days CARE PROVIDERS Myra Jacobson Correspondence Representative/Jail Officer 01/26/2022-Current PHONE: [phone] ELA WEISS Activities Managershira Tarango PHONE: [phone] KARRI MONREAL Internal Medicine Current PHONE: [phone] YUVAL DE LA CRUZ Nurse Practitioner: Family Current PHONE: Unknown DANA KIRK Internal Medicine Current PHONE: [phone] BRETT DALTON Physician Assistant Analyst 04/02/2020-Current PHONE: [phone] GERRY GOLDBERG I. Physician Assistant Analyst Current PHONE: Unknown YUE SHIRLEY Nurse Practitioner Current PHONE: Unknown BECKY JENSEN Nurse Practitioner Serena ARREDONDO PHONE: [phone] ELDER [facility] Current PHONE: Unknown AMBER [facility] Current PHONE: [phone] Cheko has no Care Guidelines for this patient. Sheila VISIT COUNT (12 MO.) 8 MALA Lafleur TOTAL 8 NOTE: Visits indicate total known visits. ED/UCC VISIT TRACKING (12 MO.) 02/25/2022 10:49 MALA Sethi [place] TYPE: Emergency COMPLAINT: - UNABLE TO SEE, SOB 02/24/2022 06:17 MALA Seth[facility] [place] TYPE: Emergency COMPLAINT: - NAUSEA 11/21/2021 11:05 MALA Sethi [place] TYPE: Emergency COMPLAINT: - RIB PAIN 11/17/2021 11:45 MALA Sethi [place] TYPE: Emergency COMPLAINT: - WEAKNESS DIAGNOSES: - Contact with and (suspected) exposure to COVID-19 - Other mcc (current) drug therapy - Unspecified atrial fibrillation - Heart failure, unspecified - Allergy status to other drugs, medicaments and biological substances - Hyperlipidemia, unspecified - Weakness - long-term (current) use of anticoagulants - Hypertensive heart disease with heart failure - Opioid abuse, uncomplicated 11/11/2021 09:10 MALA Sethi [place] TYPE: Emergency COMPLAINT: - FLU SYMPTOMS DIAGNOSES: - rodent exterminator (current) use of opiate analgesic - Unspecified atrial fibrillation - Weakness - Other buttermaker helper (current) drug therapy - Essential (primary) hypertension - Pure hypercholesterolemia, unspecified - Allergy status to other drugs, medicaments and biological substances 11/08/2021 13:24 MALA Sethi [place] TYPE: Emergency COMPLAINT: - FLU SYMPTOMS DIAGNOSES: - Pure hypercholesterolemia, unspecified - Other buttermaker helper (current) drug therapy - Unspecified atrial fibrillation - Contact with and (suspected) exposure to COVID-19 - Allergy status to other drugs, medicaments and biological substances - Diarrhea, unspecified - Hypo-osmolality and hyponatremia - rodent exterminator (current) use of opiate analgesic - Essential (primary) hypertension 10/28/2021 19:59 MALA Sethi [place] TYPE: Emergency COMPLAINT: - FLU SYMPTOMS DIAGNOSES: - Other buttermaker helper (current) drug therapy - rodent exterminator (current) use of anticoagulants - Diarrhea, unspecified - Viral intestinal infection, unspecified - Hypertensive heart disease with heart failure - Pure hypercholesterolemia, unspecified - Contact with and (suspected) exposure to COVID-19 - Heart failure, unspecified 09/05/2021 16:47 MALA Sethi [place] TYPE: Emergency COMPLAINT: - DIFF BREATHING, WEAKNESS DIAGNOSES: - Essential (primary) hypertension - Shortness of breath - Weakness - Unspecified atrial fibrillation - rodent exterminator (current) use of opiate analgesic - Pure hypercholesterolemia, unspecified - Patient's noncompliance with other medical treatment and regimen - Allergy status to other drugs, medicaments and biological substances - Other buttermaker helper (current) drug therapy INPATIENT VISIT TRACKING (12 MO.) 11/29/2021 00:00 [facility] [place] TYPE: Medical Surgical DIAGNOSES: - Bacteremia - Enterococcus as the cause of diseases classified elsewhere - Evaluation for infected endocarditis - Bacteremia - Infected endocarditis - Enterococcus as the cause of diseases classified elsewhere 11/21/2021 13:[address] [facility] [place] TYPE: Critical Care COMPLAINT: - ATRIAL FIBRILLATIOJ RVR, ENCEPHALOPATHY DIAGNOSES: - Hypokalemia - Enterocolitis due to Clostridium difficile, not specified as recurrent - Traumatic subarachnoid hemorrhage without loss of consciousness, initial encounter - rodent exterminator (current) use of anticoagulants - Anxiety disorder, unspecified - Permanent atrial fibrillation - Allergy status to other drugs, medicaments and biological substances - Cerebral edema - Other chronic pain - Enterocolitis due to Clostridium difficile, not specified as recurrent - Metabolic encephalopathy - Dehydration - Presence of prosthetic heart valve - Traumatic subarachnoid hemorrhage without loss of consciousness, initial encounter - Cerebral edema - Anxiety disorder, unspecified - Sepsis, unspecified organism - Contact with and (suspected) exposure to COVID-19 - Other mcc (current) drug therapy - Repeated falls - Pure hypercholesterolemia, unspecified - Presence of prosthetic heart valve - Permanent atrial fibrillation - Metabolic encephalopathy - Other fall on same level, initial encounter - Contact with and (suspected) exposure to COVID-19 - Hypomagnesemia - Hypokalemia - Other fall on same level, initial encounter - Essential (primary) hypertension - rodent exterminator (current) use of anticoagulants - Dorsalgia, unspecified - Hypomagnesemia - Repeated falls - Dorsalgia, unspecified - Insomnia, unspecified - Dehydration - Insomnia, unspecified - Other specified postprocedural states - Bacteremia - Bacteremia - Unspecified atrial fibrillation - Syndrome of inappropriate secretion of antidiuretic hormone - Allergy status to other drugs, medicaments and biological substances - Other specified postprocedural states - Presence of left artificial hip joint - Pure hypercholesterolemia, unspecified - Other mcc (current) drug therapy - Essential (primary) hypertension - Syndrome of inappropriate secretion of antidiuretic hormone - Other chronic pain - Presence of left artificial hip joint [email or web address]
[2022-02-25] MEDS ORDERED: ALPRAZOLAM0.5 MG PO (14:02)
[2022-02-25] MEDS ORDERED: VANCOMYCIN HCL125 MG PO (14:03)
[2022-02-25] MEDS ORDERED: ESCITALOPRAM OX20 MG PO (14:04)
[2022-02-25] MEDS ORDERED: TAMSULOSIN HCL0.4 MG PO (14:04)
[2022-02-25] MEDS ORDERED: DOXEPIN HCL10 MG PO (14:04)
[2022-02-25] MEDS ORDERED: ATORVASTATIN CA10 MG PO (14:04)
[2022-02-25] MEDS ORDERED: HYDROCODON-ACE1 EAC8 PO (14:05)
[2022-02-25] MEDS ORDERED: NALOXONE HCL4 MG NAS (14:06)
--- NOTE | 2022-02-25 15:00 | NUR ---
REPORT GIVEN TO CCU RN. PLAN ESTABLISHED TO TAKE PT TO MRI. PT IN ROOM, CONFUSED, PULLING AT LEADS, ATTEMPTING TO GET OUT OF BED, HITTING AT FAMILY ARM. PRN ATIVAN GIVEN (SEE EMAR). PT TRANSPORTED TO MRI BUT TRANSIT OPERATOR UNABLE TO COMPLETE TEST DUE TO NOT KNOW THE PT'S HISTORY REGARDING VALVE REPLACEMENT. PT THEN TRANSPORTED TO CCU VIA DR REYES AND DR ANTONIA STEPHENS. PT MOVED FROM STRETCHER TO BED WITH 4 PERSON ASSIST. PT NOT TRYING TO GET OUT OF BED BUT GRASPING AT THE AIR. PT RESPONDS TO HIS NAME AND CAN STATE HIS DATE OF . BELL CATHER PLACED AND ASSESSMENT COMPLETED. THIS RN REMAINS AT PT BEDSIDE.
--- NOTE | 2022-02-25 15:00 | NUR ---
PATIENT ARRIVED TO ROOM 127 WITH 2 RNS. PATIENT CAME FROM MRI AND WAS UNABLE TO COMPLET MRI SCAN D/T CONFUSION, RESLTESSNESS, AND INABILITY TO FOLLOW COMMANDS. MD REYES WAS UPDATED. PATIENT RECIEVED ATIVAN DURING PROCEDURE WHICH CAUSED NO CHANGES. PATIENT TRANSFERED TO BED WITH 4 RN ASSIST. PATIENT ASSESSMENT COMPLETED.
--- NOTE | 2022-02-25 15:45 | NUR ---
LORETA WITH ECHO WAS UNABLE TO GET IMAGING D/T PATIENT NOT FOLLOWING COMMANDS AND RESTLESSNESS. MD REYES UPDATED. PER MD CANCEL IMAGING. PATIENT HAD AN ECHO 3 MONTHS AGO PER .
--- NOTE | 2022-02-25 16:25 | NUR ---
PATIENT RESTING IN BED AT THIS TIME WITH RN AT HIS SIDE. PATIENT DOES NOT FOLLOW COMMANDS. PATIENT IS VERY RESTLESS AND AGITATED. PATIENT REORIENTED TO PLACE AND SITUATION. STAFF ARE HAVING TO SIT AT PATIENTS BEDSIDE FOR PATIENTS SAFETY. PATIENT CONTINUES TO BE CONFUSED AND TRYING TO GET OUT OF BED.
--- NOTE | 2022-02-25 17:30 | NUR ---
PATIENT UP SEVERAL TIMES WITH 3 RNS TO USE CAMMODE. PATIENT ABLE TO STAND WITH ASSIST, BUT PATIENT IS UNSTEADY AND HAS A DIFFICULT TIME SITTING DOWN. PATIENT HAD FAMILY WHO IS THE POA STOP IN. FAMILY WAS WITH PATIENT IN THE ER. UPDATED ON CURRENT PLAN OF CARE. PHONE NUMBER PROVIDED FOR CCU PHONE. NO OTHER QUESTIONS AT THIS TIME. BED ALARM ON FOR PATIENTS SAFETY.
--- NOTE | 2022-02-25 18:30 | NUR ---
PER MD REYES GIVE FLOMAX EARLY FOR DIFICULTY URINATING. PATIENT ABLE TO SWALLOW WATER AND PILLS WITH NO ISSUES. WILL CONTINUE TO CLSOELY MONITOR.
--- NOTE | 2022-02-25 18:50 | NUR ---
PATIENT HR UP TO 160'S. CALLED AND UPDATED MD REYES THAT PATIENT WENT FROM NSR TO A.FIB. SEE NEW ORDERS FOR HR CONTROL. THIS RN UPDATED SOLDER CREAM MAKER STAFF. NO OTHER QUESTIONS AT THIS ITME.
--- NOTE | 2022-02-25 19:31 | NUR ---
ADMINISTERED 5MG IV PUSH OF DILTIAZEMAT THIS TIME, PT IS NOT ORIENTED TO PLACE. WILL MONITOR
--- NOTE | 2022-02-25 19:50 | NUR ---
PT CONFUSED, TO ALL BUT SELF AT THIS TIME. HE IS VERY RESTLESS, SHIFTING IN BED AND PULLING ON BLANKETS, WELL ATTEMPTING TO GET OUT OF BED.
--- NOTE | 2022-02-25 20:11 | NUR ---
PT SAAD;OZED HIS BACK HURTS 01/05, ONE TAB NORCO ADMINISTERED PRN AT THIS TIME. SITTING AT BEDSIDE.
--- NOTE | 2022-02-25 20:40 | NUR ---
UPDATED BY PHONE. PT HEART RATE, RESTLESS, ATTEMPTING TO GET OUT OF BED. NEW ORDERS
--- NOTE | 2022-02-25 21:28 | NUR ---
PT ADMINISTERED 1MG IV HALDOL PER NEW ORDERS FROM , PT CONTINUES TO BE RESTLESS, ATTEMPTING TO EXIT BED, HE IS FIXATED ON NEEDING TO URINATE. HE FORGETS HE HAS A BELL CATHETER IN PLACE. CONTINUE TO REQUIRE 1:1 VISUAL/BEDSIDE PLUS BED ALARM TO MAINTAIN PT SAFETY.
--- NOTE | 2022-02-25 22:11 | NUR ---
pt continues to be restless, redirectable with 1:1 at bedside. pt has been attempting to pull on crooks cath tubing. also attempting to get out of bed.
--- NOTE | 2022-02-25 23:03 | NUR ---
CALLED TO UPDATE PT REMAINS AGITATED/RESTLESS, STARTS TO SLEEP THEM HIS LEG OR ARM WILL JERK HIM BACK AWAKE, THEN HE YELLS OUT "NURSE" OR ATTEMPTS TO GET OUT OF BED
--- NOTE | 2022-02-25 23:39 | NUR ---
pt continues to be restless, continues to request to get up to use the urinal, despite having crooks, reorientation and redirect with each interaction
--- NOTE | 2022-02-26 00:13 | NUR ---
pt had small stool incont. bed linens changed, pt able to follow direction to assist i turning. pt reports pain 6/10 at back and right shoulder, norco 1 tab 10/325 prn administered at this time.
--- NOTE | 2022-02-26 01:25 | NUR ---
pt reports needing to have a bm, pt assisted two person up to bedside commode, pt passed gas, no bm. pt back to bed, restless and agitated. pt administered haldol 2mg iv prn at this time. will monitor for effect.
--- NOTE | 2022-02-26 02:20 | NUR ---
PT RESTING QUIETLY IN BED, EYES CLOSED RESP RATE REGULAR, NO DISTRESS NOTED.
--- NOTE | 2022-02-26 03:36 | NUR ---
PT RESTING QUIETLY IN BED, RELAXED POSITION, EYES CLOSED RESP RATE REGULAR AT 20 BREATH/MIN
--- NOTE | 2022-02-26 04:28 | NUR ---
PT RESTING QUIETLY IN BED, RELAXED POSITION, EYES CLOSED, NO MOANING/GRIMACE. NO DISTRESS NOTED. CALL LIGHT IN REACH, BED ALARM ON FOR PT SAFETY.
--- NOTE | 2022-02-26 05:52 | NUR ---
PT ALERT AND AGITATED, HE IS DEMANDING TO GET OUT OF BED, PT TRIED TO PUSH PAST AND GRAB AT STAFF CLOTHS TO ATTEMPT TO GET OUT OF BED, PT REPORTS HE NEEDS TO GET UP TO "PEE" PT REMINDED HE HAS A CATHETER HE SAID "I DONT CARE I HAVE TO GET UP, HELP NOW! PLEASE!" HE CONTINUED TO ATTEMPT TO GET OUT OF BED. PT ADMINISTERED 2MG IV HALDOL PRN FOR AGITATION, THEN ASSISTED TO BEDSIDE COMMODE TWO PERSON, HE IS VERY UNSTEADY, HE PASSED FLATUS NO BM. PT ASSISTED BACK TO BED. HE IS NOW RESTING QUIETLY.
--- NOTE | 2022-02-26 07:45 | NUR ---
REPORT RECIEVED FROM LINE BUILDER RN. PATIENT IS RESTING IN BED AT THIS TIME. PER REPORT PATIENT HAS CONTINUED TO BE RESTLESS THROUGHOUT THE NIGHT. PATIENT CONTINUES TO STATE HE NEEDS TO URINATE. WILL REMOVE CATHETER IF CONTINUED AGITATION.
--- NOTE | 2022-02-26 08:30 | NUR ---
PATIENT ASSESSMENT COMPLETED. PATIENT IS ALERT TO SELF AND PLACE. PATIENT IS EASILY FORGETFUL AND CONFUSED. WILL REORIENT NEEDED. PATIENT BREATH SOUNDS CLEAR AND PATIENT ON RA. SPO2 98%. PATIENT BOWEL TONES ACTIVE. PATIENT HAS A DIFFICULT TIME FOCUSING ON WHAT IS INFRONT OF HIM. PATIENT IS SPATIALLY UNAWARE OF HIS LOCATION AND ITEMS IN FRONT OF HIM. PATIENT MEDICATIONS GIVEN WITH NO ISSUES. ATIENT ASSISTE DUP TO THE CHAIR WITH 2 PERSON ASSIST. PATIENT WHEN SITTING LEANS TO THE LEFT. PATIENT HAS A SLIGHT LEFT SIDE DROOP TO HIS MOUTH. PATIENT WHEN STANDING HAS A DIFICULT TIME USING HIS LEFT ARM AND WALKING IS WEAK. PATIENT HAS A DIFFICULT TIME WITH UNDERSTANDING WHAT IS BEING ASKED. CHAIR ALARM IS ON FOR PATIENTS SAFETY. CATHETER REMOVED D/T AGITATION WITH IT. WILL CONTINUE TO CLOSELY MONITOR.
--- NOTE | 2022-02-26 08:30 | NUR ---
PATIENT UP TO CHAIR WITH 2PA AND FWW. PATIENT NEEDING SEVERAL CUES, DIFFICULT TO REDIRECT AT TIMES. CHAIR ALARM ON FOR SAFETY. CALL LIGHT IN EASY REACH
--- NOTE | 2022-02-26 09:15 | NUR ---
PHYSICAL THERAPY IN TO SEE PATIENT AND WORK WITH HIM.
--- NOTE | 2022-02-26 09:35 | NUR ---
FRIENDS AT THE BEDSIDE VISITING PATIENT. PHYSICAL THERAPY FINISHED. 2 PERSON STAND-BY ASSIST RECOMMENED. PATIENT IS UNSTEADY ON HIS FEET AND WILL NEED CONTINUED THERAPY AND STRENGTHENING.
--- NOTE | 2022-02-26 10:34 | NUR ---
PATIENT UP TO THE CAMMODE WITH 2 PERSON ASSIST. PATIENT IS MORE STEADY WITHOUT THE WALKER. PATIENT DOES NOT UNDERSTAND THE CONCEPT OF THE WALKER AND IS HAVING VISION ISSUES. PATIENT BACK TO THE CHAIR. CHAIR ALARM ON FOR PATIENTS SAFETY. WILL CONTINUE TO CLSOELY MONITOR.
--- NOTE | 2022-02-26 11:07 | NUR ---
PATIENT UNCOMFORTABLE SITTING IN THE CHAIR. ASSISTED PATIENT BACK TO THE BED. PATIENT NOW RESTING IN BED. WILL CONITNUE TO CLOSELY MONITOR.
--- NOTE | 2022-02-26 12:18 | NUR ---
THIS RN IN TO ASSIST PATIENT WITH HIS LUNCH. PATIENT INITIALLY TRIED TO EAT ON HIS OWN, BUT WAS HAVING SOME DIFFICULTY WITH KEEPING FOOD ON HIS SILVERWARE. THIS RN ASSISTED PATIENT TO EAT. PATIENTS SON AT THE BEDSIDE AND UPDATED ON PLAN OF CARE. BED ALARM ON FOR PATIENT SAFETY. PATIENT CALLS OUT TO STAFF WHEN HE NEEDS ASSISTANCE. WILL CONTINUE TO CLOSELY MONITOR.
--- NOTE | 2022-02-26 14:11 | NUR ---
REPORT RECEIVED FROM CCU RN. PT ARRIVED VIA BED. ORIENTED TO SELF AND DROWSY AT TIMES DURING CONVERSATION AND EASILY AWAKENS TO VOICE. FOLLOWS SOME COMMANDS AND SEEMS CONFUSED AT TIMES. ASSESSMENT COMPLETED. PT. PLACED ON CONTACT PRECAUTIONS. PT. LEFT RESTING WITH BED ALARM ON AND CURTAIN OPEN.
--- NOTE | 2022-02-26 14:29 | EKG ---
[facility] [address] [place] [address] Signed Normal sinus rhythm Prolonged QT Abnormal ECG When compared with ECG of 24-FEB-2022 07:48, No significant change was found Confirmed by NATALIE REYES MD ([id number]) on 02/26/2022 2:29:02 PM Electronically Signed By: NATALIE REYES MD 02/26/22 1429 PATIENT NAME: ROBERTSMOSHERanjeet ECKERT Electrocardiogram DATE OF : 41 PHYSICIAN: NATALIE REYES MD REPORT #: [id number] REPORT IS CONFIDENTIAL AND NOT TO BE RELEASED WITHOUT AUTHORIZATION
--- NOTE | 2022-02-26 14:36 | NUR ---
PT. REPEATEDLY TRYING TO GET OUT OF BED AND STATES HE NEEDS "COLD PILL" OR TO VOID. 1 TO 1 WITH ADJUNCT PSYCHOLOGY FACULTY MEMBER FOR SAFETY.
--- NOTE | 2022-02-26 14:48 | NUR ---
PATIENT GETTING FIDGETY, SAYS HE'S LOOKING FOR HIS PILL. WHEN PATIENT GOT IN THE BED HE STATED THAT HE FELT SICK TO HIS STOMACH. CALL LIGHT WITH IN REACH. WILL CONTINUE TO MONITOR
--- NOTE | 2022-02-26 15:19 | NUR ---
Medications reconciled
--- NOTE | 2022-02-26 15:49 | NUR ---
PT. IS INCREASINGLY AGITATED AND RESTLESS. 2PA TO AMBULATED. ASSISTED WITH URINAL SEVERAL TIMES. PT. IS REPEATEDLY GRABBING STAFF AND FRUSTRATED. NOT DIRECTABLE AT TIMES. PT. ALSO HAS FREQUENT VISUAL HALLUCINATIONS. CALLED AND UPDATED. VERBAL ORDER GIVEN FOR SEREQUEL.
--- NOTE | 2022-02-26 16:27 | NUR ---
SEREQUEL ADMIN. PT. CONTINUES TO BE RESTLESS AND CONTINUOUSLY TRIES TO LEAVE THE BED OR CHAIR. PT. UNSTEADY AND NOT FOLLOWING COMMANDS WITH AMBULATION AROUND THE ROOM. 1 TO 1 WITH COTTAGE MASTER. WILL CONTINUE TO MONITOR.
--- NOTE | 2022-02-26 16:50 | NUR ---
PT CONTINUES TO BE RESTLESS AND MOVING FROM BED TO CHAIR TO COMMODE. WILL CONTINUE TO MONITOR.
--- NOTE | 2022-02-26 19:36 | NUR ---
REPORT RECEIVED FROM NIGHT RN - PT RESTLESS AND DISORIENTED IN BED WITH RAIL AND FLOOR PADS IN PLACE. 1:1 FEED ELEVATOR WORKER WITHIN EYE SIGHT.
--- NOTE | 2022-02-26 20:15 | NUR ---
THIS MARKETING SALES MANAGER HAS DIRECT OBSERVATION OF PT, PT RESTLESS, GRAGGING AT SIDE RAILS AND BLANKETS
--- NOTE | 2022-02-26 21:15 | NUR ---
IN TO ASSIST RN WITH GETTING PT CLEANED UP, REPOSITION IN BED, BOOSTED, WARM BLANKETS TO TUCK PT IN, PT TRIED TO USE URINAL, INCONT EPISODES NOTED, BED ALARM IS SET
--- NOTE | 2022-02-26 21:30 | NUR ---
RN IN ROOM TO ASSESS PT AND ADMINISTER MEDICATIONS. PT ABLE TO SWALLOW WHOLE PILLS WITH APPLESAUCE AND DRINK FROM CUP WITH STRAW, NO DIFFICULTY SWALLOWING OR COUGH NOTED. PT REMAINS UNABLE TO FOLLOW COMMANDS FOR NEURO EXAM - ANSWERS TO NAME AND OCCASIONALLY YES/NO QUESTIONS APPROPRIATLY. PRN NORCO PROVIDED FOR CHRONIC PAIN, WELL SEROQUEL FOR EXTREME AGGITATION. BED RAIL PADS AND FLOOR PAD IN PLACE, DOOR AND CURTAIN OPEN WITH 1:1 GRANTS OFFICER WITHIN EYE SITE.
--- NOTE | 2022-02-26 21:30 | NUR ---
IN WITH IN TO GET VITALS, BED ALARM ACTIVE, PT IN VIEW OF THIS VAMP THROATER's OBSERVATION
--- NOTE | 2022-02-26 22:26 | NUR ---
PT RESTING IN BED ON BACK WITH EYES CLOSED WITH WARM BLANKETS, RR EVEN AND UNLABORED, NO DISTRESS NOTED. CURTAIN OPEN AND 1:1 PAPER FOLDER WITHIN EYE SITE.
--- NOTE | 2022-02-26 23:17 | NUR ---
PT RESTING IN BED ON BACK ASLEEP, RR EVEN AND UNLABORED. 1:1 SHEET METAL HELPER IN EYES SIGHT.
--- NOTE | 2022-02-27 00:01 | NUR ---
PT RESTING IN BED ON SIDE, QUIET AND NO DISTRESS NOTED. BED ALARM ON, PADDED SIDE RAILS AND DOMINIC IN PLACE.
--- NOTE | 2022-02-27 01:00 | NUR ---
PT HAS UNCOVED SELF, INCONT OF URINE, WITH RNs, COMPLETE BED CHANGE DONE, PT STOOD AT BEDSIDE, URINAL ATTEMPTED, PT HAD MORE OUTPUT, BACK TO BED, TUCKED IN AGAIN, RN AT BEDSIDE FOR MEDS
--- NOTE | 2022-02-27 01:18 | NUR ---
RN IN ROOM TO ASSIST WITH LINEN CHANGE AND PT BEHAVIOR. PT ABLE TO STAND AT BEDSIDE BUT UNCORDINATED AND STIFF LEGS. PT NOT REDIRECTABLE AT THIS TIME - INC ON FLOOR WHILE STANDING. WHITE CHUX ON BED ALSO SOAKED WITH 50ML URINE CAUGHT IN URINAL. PT APPEARS UNCOMFORTABLE TOSSING IN BED AND HOLDING HIP. PRN CHRONIC DOSE OF NORCO GIVEN. PADDED RAILS AND FLOOR IN PLACE. PT NOT REDIRECTABLE SO STAFF INTERACTION CEASED AND 1:1 WATCHING WITHIN EYE SIGHT.
--- NOTE | 2022-02-27 02:11 | NUR ---
PT NOW RESTING COMFORTABLY - MINIMAL FIDGETING IN BED. BED RAILS AND PADDING IN PLACE. 1:1 1ST PRESSMAN ON WEB PRESS WITHIN DIRECT EYE SIGHT.
--- NOTE | 2022-02-27 03:15 | NUR ---
PT RESTING IN BED ASLEEP WITH MINIMAL MOVEMENTS, RR EVEN AND UNLABORED. 1:1 WITHIN EYE SIGHT.
--- NOTE | 2022-02-27 04:11 | NUR ---
PT RESTING IN BED, RESTLESS AT TIMES. 1:1 STRIKE ON MACHINE OPERATOR IN DIRECT EYE SIGHT.
--- NOTE | 2022-02-27 05:15 | NUR ---
RN IN ROOM TO ASSESS PT - PT RESTLESS IN BED CALLING OUT. BEDDING SOAKED IN URINE, LINEN CHANGED WITH PT ROLLING, PAIN NOTED WITH THIS IN HIP AND NECK. PT REMAINS DISORIENTED, ANSWERS TO NAME BUT UNABLE TO FOLLOW COMMANDS. PT PROVIDED PRN NORCO AND WARM BLANKETS. ABLE TO OBTAIN FULL SET OF VITALS. BED RAILS AND FLOOR PADDING IN PLACE, PT REMAINS ON A 1:1.
--- NOTE | 2022-02-27 05:42 | NUR ---
pt yelling help. he was covered with warm blankets, after getting his incont/urine soaked bed changed. He wants to get up and get dressed, but doesn't remember he is in the hospital. Currently he has uncovered himself, kicking his legs over the seizure pads on bed. When asked, pt says he wants to go downtown and get a coat on as he is cold. Attempted to orient him, encouraging him to cover with blanket to stay warm, he continues to beg to help get him up to get his clothes. bed alarm is on, side rails with seizure pads to prevent injury to self.
--- NOTE | 2022-02-27 06:16 | NUR ---
PT REMAINS IN BED RESTLESS AND CALLING OUT "HELP" AND RANDOM CONVERSATION WITH WHAT SOUNDS TO BE PTS DOG. MUSIC PLAYING IN ROOM, LIGHTS OFF.
--- NOTE | 2022-02-27 07:23 | NUR ---
PT IN BED RESTLESS STAFF PRESENT / FOR SAFETY. PT UNABLE TO FOLLOW INSTRUCTION, CONFUSED X4
--- NOTE | 2022-02-27 09:00 | NUR ---
PT CONTINUES TO BE RESTLESS IN BED, C/O NEEDING TO VOID EVERY FEW MINUTES. STAFF USING URINAL TO ASSIST. PT VOIDS A FEW DROPS AT A TIME THEN AGAIN REQUESTS "URINAL" FLOMAX BEING GIVEN AT BEDTIME. TOLERATES BITES ONLY OF MORNING MEAL, ENSURE PROVIDED. HAS DRANK 200 MLS OF H20 REFUSED COFFEE. RESTING NOW EYES CLOSED APPEARS RELAXED AND RESTFUL
--- NOTE | 2022-02-27 10:29 | NUR ---
PATIENT SLEEPING IN BED AFTER MEAL TIME. I/O'S COMPLETED, THIS STEAM TUNNEL FEEDER WILL ATTEMPT VITALS AND GETTING UP BEFORE LUNCH. BED ALARM ON, CALL LIGHT WITHIN REACH.
--- NOTE | 2022-02-27 10:38 | NUR ---
PT RESTING SOUNDLY AT THIS TIME 05/29 STAFF PRESENT
--- NOTE | 2022-02-27 11:26 | NUR ---
PT CONTINUES SLEEPING SOUNDLY AT THIS TIME. WILL AWAKEN HIM WHEN LUNCH ARRIVES AND TRY TO KEEP HIM ALERT AND CALM FOR BETTER SLEEP TONIGHT
--- NOTE | 2022-02-27 13:01 | NUR ---
PT AWAKENS AROUND NOON RETURNS TO SLEEP. ATTEMPTED TO AWAKEN PT HE PULLS BLANKETS OVER HIS HEAD REFUSES. SHORT TIME LATER PT AWAKE AGAIN NEEDS TO VOID. ASSISTED UP TO THE BSC THEN TO RECLINER CHAIR FOR LUNCH. PT RETURNS TO SLEEP
--- NOTE | 2022-02-27 13:03 | NUR ---
PATIENT UP IN CHAIR FOR MEAL, DRESSED, AND UP FOR AFTERNOON. VITALS COMPLETED AND DOCUMENTED. PATIENT STILL RESTING AND HAS NO OTHER NEEDS AT THIS TIME. CALL LIGHT WITHIN REACH.
--- NOTE | 2022-02-27 14:18 | NUR ---
PATIENT IN CHAIR RESTING. VITALS AND OUTPUT COMPLETED. PATIENT STILL HAS NOT EATEN MEAL. WILL TRY FOOD AGAIN WHEN PT IS MORE AWAKE. PT HAS NO OTHER NEEDS AT THIS TIME. CALL LIGHT IN REACH.
--- NOTE | 2022-02-27 14:59 | NUR ---
NEW ORDERS FROM DR REYES RECEIVED BOLUS INFUSING NOW. PT SLEEPING IN RECLINER REFUSES TO WAKE UP SAYS "STOP IT, LEAVE ME ALONE" ENCOURAGED H20 INTAKE AND CONVERSATION PT REFUSES RETURNS TO SNORING SOFTLY.
--- NOTE | 2022-02-27 15:37 | NUR ---
PT AWAKENS NEEDS TO USE THE TOILET. 2 PERSON ASSIST TO THE BSC NO RESULTS OF URINE OR BM. PT MOANING C/O NECK PAIN, VICODIN ADMINISTERED. PT REPOSITIONED IN THE CHAIR FOLLOWS INSTRUCTIONS FAIRLY WELL. 05/29 STAFF CONTINUE FOR SAFETY
--- NOTE | 2022-02-27 16:49 | NUR ---
PT CONTINUES TO NAP DESPITE EFFORTS TO AROUSE HIM FROM SLEEPING. AWAKENS AT INTERVALS TO VOID, 2 PA TO BSC THEN RETURNS TO THE RECLINER.
--- NOTE | 2022-02-27 18:47 | NUR ---
VISITORS X2 PT CHUCKLES SOME, RESPONDS A LITTLE, MOSTLY SLEEPY. CONTINUES UP IN HIS CHAIR
--- NOTE | 2022-02-27 19:27 | NUR ---
3 PA. PATIENT GOT UP FROM CHAIR TO BEDSIDEE COMMODE AND BACK TO CHAIR. PATIENT DID NOT LIKE TO BED HELPED. DOES NOT FOLOW DIRECTION. CHANGED PULL UP. HOSPITAL PANTS ON. PATIENT VOIDED 100ML DARK URINE.
--- NOTE | 2022-02-27 21:30 | NUR ---
PATIENT ASKED FOR APPLE SAUCE. FEED ASSISTED. DRANK SOME WATER.
--- NOTE | 2022-02-27 21:31 | NUR ---
PATIENT REPOSITIONED IN RECLINER. PATIENTS VITALS TAKEN AND RECORDED. INTAKE AND OUTPUT RECORDED. PATIENT DENIES THE NEED TO USE THE BR. PATIENTS PM MEDS GIVEN IN APPLESAUCE. NO S/SX OF SWALLOWING ISSUES. PATIENT PROVIDED SIPS OF WATER. NO FURTHER NEEDS NOTED. CALL LIGHT IN REACH.
--- NOTE | 2022-02-27 21:54 | NUR ---
2 PA. CENTER HUMAN RESOURCES MANAGER ANDRINA AND THIS DERRICK FOLLOWER HELPED PATIENT UP TO BEDSIDE COMMODE THEN TO BED. PATIENT VOIDED 90 ML DARK URINE. SEIZURE PAD AROUND THE BED ON. BED ALARM ON FOR SAFETY.
--- NOTE | 2022-02-28 00:48 | NUR ---
PATIENT CALLED TO USE THE URINAL AND ASSISTED.
--- NOTE | 2022-02-28 01:20 | NUR ---
assted pt to use urinal in bed, inc. of urine in attends - changed to clean briefs - 50 ml in urinal - clear yellow urine - primary rn updated, pt able to roll and help reposition in bed, call light in reach.
--- NOTE | 2022-02-28 01:31 | NUR ---
PATIENT RESTING EASY IN BED, APPEARS TO BE SLEEPING WITH EYES CLOSED. BED ALARM ON. LIGHTS DIM. WARM BLANKET PROVIDED.
--- NOTE | 2022-02-28 03:24 | NUR ---
PATIENT WOKE AND CALLED OUT NURSE, THEN REQUESTED URINAL. VOIDED 200 ML OF CLEAR YELLOW URINE. PROVIDED PATIENT WITH WARM BLANKET. ANSWERS QUESTIONS APPROPRIATELY, ABLE TO TELL NURSE HE IS AT THE HOSPITAL. NO OTHER NEEDS AT THIS TIME. CANCELLATION CLERK WITHIN SITE OF PATIENT, AND BED ALARM ON. PATIENT ALSO DISCUSSED HIS LOVE OF COUNTRY MUSIC AND STARTED SINGING TO A Stemgent SONG.
--- NOTE | 2022-02-28 07:57 | NUR ---
PATIENT GOT FRESH ICE WATER. LIS HELPED ME PULL HIM BACK IN BED. HE WASHED HIS FACE. AND HAD HARD TIME TRYING TO BRUSH HIS TEETH. TRYING TO BE VERY INDEPENDENT. WE ALSO TRIED TO TRANSFER HIM TO THE CHAIR AND HE DIDN'T HAPPEN SO HE IS BACK IN BED. PATIENT ASKED FOR SODA SO WE GOT HIM ONE.
--- NOTE | 2022-02-28 08:16 | NUR ---
PT ALERT AND TALKATIVE AT SHIFT REPORT. MUCH IMPROVED OVER YESTERDAY. PT ABLE TO SEE THE CLOCK ON THE WALL, THOUGH HE CAN"T MAKE OUT THE TIME. STATES IT IS DAYTIME AFTER LOOKING AT WINDOW. 2 PA UP TO THE RECLINER FOR MORNING MEAL. 05/29 STAFF PRESENT FOR SAFETY
--- NOTE | 2022-02-28 08:30 | NUR ---
Spoke with pt and he is able to answer most questions, he does cont. with confusion and at times attempts to get out of his chair. Pt states he has been independent at home and denies need for placement to a SNF and does not want any PT. Pt insists he will be going home. Pt's step son is his POA. I will call and speak with him later.
--- NOTE | 2022-02-28 08:55 | NUR ---
GISELLE AND I TRANSFERED PATIENT FROM HIS BED TO HIS CHAIR. PATIENT FED HIMSELF. LIS CAME IN AND HELPED ME TRANSFER HIM FROM THE CHAIR TO THE BEDSIDE COMMODE. THAN SHE HELPED ME TRANFSER HIM BACK TO HIS CHAIR. PATIENT IS RESTING IN HIS CHAIR. BED LINENS CHANGED.
--- NOTE | 2022-02-28 10:05 | NUR ---
PATIENT GIVEN ONE NORCO FOR 01/05 HEADACHE. OT IN TO WORK WITH PATIENT.
--- NOTE | 2022-02-28 10:21 | NUR ---
PT SELF FEEDS MORNING MEAL, EATS NEAR 100% CONTINUES UP IN THE CHAIR AWAKE AND DOZING INTERMITTANTLY BUT INTERACTIVE WITH COMMUNICATION WHEN STIMULATED. S/T IN FOR ASSESSMENT, WORKING NOW WITH O/T PT IS COOPERATIVE
--- NOTE | 2022-02-28 11:08 | NUR ---
ASKED PATIENT IF HE WOULD LIKE TO SHAVE AND HE SAID NO HE WANTS TO GROW IT OUT LIKE [facility].
--- NOTE | 2022-02-28 11:47 | NUR ---
PT CONTINUES UP IN THE CHAIR VISITING WITH FRIENDS X2, CONTINUES TO BE ALERT AND INTERACTIVE. NO NEW NEURO DEFICITS NOTED, VISION IMPROVED. CONTINUES TO C/O AMAYA AND NECK/BACK PAIN TYLENOL ADMINISTERED ALONG WITH 2ND NORCO.
--- NOTE | 2022-02-28 13:00 | NUR ---
Pts friend, Orestes and Rasheed, into see pt. They both assist pt as needed per pt. Pt feels he can go home and does not need placement. Both friends state pt needs to be placed. Pt is unable to get into his home without assist, he cannot see, and does not cook. They state pt cannot care for himself. They have been speaking with POA and state he has a plan in place.
--- NOTE | 2022-02-28 13:08 | NUR ---
PT AGREES HE IS COMFORTABLE. CONTINUES UP IN THE CHAIR AWAKE AND LISTENING TO MUSIC. CHAIR ALARM IS IN PLACE. PT HAS BEEN CALM AND COOPERATIVE THIS SHIFT, NOT ATTEMPTING TO GET UP.
--- NOTE | 2022-02-28 14:07 | NUR ---
PT ALERT, SITTING IN CHAIR LISTENING TO MUSIC AND FIDDLING WITH BUTTONS ON HIS SHIRT. PT SAYS HE HAS NEVER BEEN HERE BEFORE, PT SLIGHTLY DISORIENTED. SAID HE WAN'T HUNGRY. THANKED ME FOR COMING IN. LEFT G.POST AND BLESSING.
--- NOTE | 2022-02-28 14:32 | NUR ---
PT EATS NEARLY 100% FOR NOON MEAL, SELF FEEDS, CONTINUES UP IN THE CHAIR CHEERFUL AND TALKATIVE. DENIES AMAYA OR OTHER DISCOMFORTS AT THIS TIME.
--- NOTE | 2022-02-28 15:13 | NUR ---
PT TO THE SHOWER STAFF ASSIST WELL TOLERATED
--- NOTE | 2022-02-28 15:26 | NUR ---
Spoke with LEIA Hong. He states pt will need to be placed. Discussed options of SNF, [facility], and [facility]. Discussed due to pts confusion, I don't think he would qualify for a SNF at this time. This would mean out of pocket payment. We also discussed pt may qualify for senior care medicaid through [facility]. I will call Carmen Holt and request an eval. Gave Carmen Hong's phone number and he will call at 4 pm. Called Carmen and updated to pts status. Let her know I will fax the POA form on file at the hospital. Let her know Hal will call at 4 pm.
--- NOTE | 2022-02-28 17:04 | NUR ---
PT HAS BEEN ACTIVE THIS ENTIRE SHIFT AWAKE AND TALKATIVE. AMBULATED TO THE END OF THE [place] WITH P/T EARLIER, WELL TOLERATED. EVENING MEDS ADMINISTERED PT DENIES PAIN AT THIS TIME SO NO PAIN MED ADMINISTERED. RESTING IN BED WATCHING SPORTS PER HIS REQUEST, CALL LIGHT IN HAND.
--- NOTE | 2022-02-28 17:06 | NUR ---
Called [facility], [facility], [facility]. All state no beds open at this time. Called [facility] and they request I send the chart. Was able to read OT note to her and note from PT stating they could not work with pt as he was sleeping. Will fax chart in the AM when PT has worked with pt. María Anderson did say their [place] office may have a bed open tomorrow.
--- NOTE | 2022-02-28 19:31 | NUR ---
Received report from offgoing shift. Pt resting in room, breathing even, unlabored. Pt occasionally requesting "GIRLS". Pt call light in reach, unused, no complaints of pain at this time.
--- NOTE | 2022-02-28 19:41 | NUR ---
PT. ASSISTED BY 1P AND FWW TO THE BATHROOM. GAIT UNSTEADY AT TIMES. HE HAD A SMALL BOWEL MOVEMENT AND ASSISTED BACK TO BED. LEFT RESTING WITH ALARM ON AND CALL LIGHT IN REACH. CURTAIN OPEN.
--- NOTE | 2022-02-28 21:20 | NUR ---
PATIENTS VITALS TAKEN AND RECORDED. PATIENT ASSISTED FROM RECLINER TO BR A 1PA W/FWW. PATIENT ABLE TO VOID. PATIENT IS NOW IN BED RESTING. PATIENT IS ANXIOUS AND WANTS TO GO HOME. PATIENT REASSURED HE IS SAFE AND NEEDS THERAPY. YAAKOV UMAÑA RN NOW PRESENT IN ROOM.
--- NOTE | 2022-02-28 21:30 | NUR ---
in pt room for medications pass, pt was sitting on edge of bed, requesting to leave because of a cattle deal in the morning. Pt accepted medications, was compliant with assessment, had no complaint of pain at this time. Pt call light was in reach
--- NOTE | 2022-02-28 23:07 | NUR ---
IN PT ROOM FOR ROUNDING. PT SITTING ON EDGE OF BED. PT HAS NO COMPLAINT OF PAIN, NO DISCOMFORT VOICED. PT CALL LIGHT IN REACH,
--- NOTE | 2022-03-01 00:15 | NUR ---
CHANGED INCONTINENT ATTEND. PATIENT BOOSTED UP TO THE BED. 2PA.
--- NOTE | 2022-03-01 01:28 | NUR ---
IN PT ROOM FOR ROUNDING. PT HAS NO COMPLAINT OF PAIN OR DISCOMFORT, IS RESTING WITH BREATHING EVEN, UNLABORED. CALL LIGHT IN REACH
--- NOTE | 2022-03-01 01:35 | NUR ---
PT NOTED TO BE ATTEMPTING TO GET OUT OF BED. SBA TO BR WITH FWW TO VOID AN UNMEASURED AMOUNT. GAIT STEADY. PT REQUIRES FREQUENT QUEING. BACK TO BED. PT CONFUSED BUT COOPERATIVE. WARM BLANKET PROVIDED. BED ALARM FOR SAFETY.
--- NOTE | 2022-03-01 02:31 | NUR ---
CHANGED PULL UPS. ASSISTED IN USING URINAL. BED ALARM ON.
--- NOTE | 2022-03-01 02:38 | NUR ---
PT REPORTS BACK/BLE PAIN 11/05. PRN FOR PAIN ADMIN PER EMAR.
--- NOTE | 2022-03-01 02:55 | NUR ---
IN PT ROOM FOR ROUNDING. PT RESTING, BREATHING EVEN, UNLABORED. PT CALL LIGHT IN REACH.
--- NOTE | 2022-03-01 04:18 | NUR ---
IN PT ROOM FOR ROUNDING. PT RESTING, NO SIGNS OF PAIN, DISCOMFORT. PT CALL LIGHT IN [place].
--- NOTE | 2022-03-01 07:25 | NUR ---
REPORT RECEIVED FROM GAGANDEEP RN'S. PT RESTING IN BED WITH EYES CLOSED. RESPIRATIONS EVEN AND UNLABORED. BED RAILS UP CALL LIGHT WITHIN REACH. BED ALARM ON. PT ALLOWED TO REST.
--- NOTE | 2022-03-01 07:48 | NUR ---
IN PT ROOM FOR ROUNDING. PT LAYING IN BED WATCHING TELEVISION. PT COMPLAINING OF WANTING TO BE AT HOME SO HE CAN "LOAD THEM COWS UP" AND "MAKE SOME MONEY". PT SHOWING NO SIGNS OF DISCOMFORT, BREATHING EVEN AND UNLABORED, CALL LIGHT IN REACH.
--- NOTE | 2022-03-01 08:07 | NUR ---
MORNING ASSESSMENT AND MEDICAITON DUE. PT UP TO CHAIR WITH ASSISTANCE FROM STEPHANIE NETTLES. PT RESTING WITH EYES CLOSED. PT MUMBLING TO HIMSELF. PT AWAKENS TO VOICE AND LIGHT TOUCH. PT DISORNIETED TO ALL STATING HE IS ALL "[employer]." AND IT IS "2004" AND THE MONTH IS " TWO." PT DOES FOLLOW DIRECTIONS. STRONG INSPECTOR ELEVATORS STRENGTH NOTED. NO FACIAL ASEMETRY NOTED. STRONG PLANTAR AND DORSI FLEXION NOTED. PUPILS REMAIN IRREGULARLY SHAPPED ON THE RIGHT SIDE. PT UNABLE TO FOCUS VISION OR RESPOND TO VISION RELATED QUESTIONS. PT DOES NOT TRACK PEN LIGHT. PT DENIES PAIN AND NAUSEA. LUNG SOUNDS CLEAR. HEART TONES REGULAR. NO SWALLOWING DEFICITS NOTED. PT TAKE MEDICAITONS WITH WATER WITHOUT COUGHING OR CLEARNING THROAT. SPEACH GARBLED BUT INTELLAGIABLE. HEART TONES REMAIN IRREGULAR. LUNG SOUNDS CLEAR. BREAKFAST DELIVERED. PT STATES HE JUST WANTS TO SLEEP. BRIGHT LIGHTS ON IN ROOM TO REMIND PT IT IS DAY TIME. CALL LIGHT WITHIN REACH. CHAIR ALARM ON. NO ADDITIONAL NEEDS AT THIS TIME.
--- NOTE | 2022-03-01 09:05 | NUR ---
THIS RN TO ROOM TO CHECK ON PT. PT UP TO CHAIR WORKING WITH MAPLE SYRUP MAKER TO EAT BREAKFAST. PT CONFUSED AND WANTS "THE REINS" BEFORE HE IS WILLING TO EAT. 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 LIS MAPLE SYRUP MAKER REMAINS AT BEDSIDE. NO ADDITONAL NEEDS AT THIS TIME. CALL LIGHT WIHTIN REACH. CHAIR ALARM ON.
--- NOTE | 2022-03-01 09:37 | NUR ---
PT CONFUSED AND TRYING TO "GO TO THE BUSHES OVER THERE" TO USE THE RESTROOM. 2 PERSON ASSSIT UP TO COMODE. PT AGRESSIVE AND YELLING STATING ADDITIONAL CONFUED STATEMENTS ABOUT BEING OUT SIDE WITH THE HORSES. DEPENDS SOILED WITH STOOL. NAHUN CARE DONE. DEPENDS, PANTS AND SOCKS CHANGED. 2 PERSON ASSIST BACK TO CHAIR. 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 PT UNABLE TO IDENTIFY ITEMS IN ROOM. PT TALKING TO PEOPLE INT [facility] ROOM WHO ARE NOT PRESSENT, WHOLE CONVERSATIONS "HAND THAT TOO ME. WHY WON'T YOU CANT ME A VEST? WHAT ARE YOU DONING OVER THERE?" NO ADDITIONAL NEEDS AT THIS TIME. CHAIR ALARM ON. CALL LIGHT WITHIN REACH.
--- NOTE | 2022-03-01 09:52 | NUR ---
CHAIR ALARM SOUNDING PT ATTEMPTING TO GET UP. PT AGAIN VERY AGITATED, YELLING AND CONFUSED. PT UP TO BEDSIDE COMODE AGAIN AND HAS LARGE FORMED BOWEL MOVEMENT. PT VERY UNSTEADY ON FEET AND IMPULSIVE. PAIN MEDICATION AND NAUSEA MEDICATION GIVEN IN ATTEMPT TO ASSIST WITH AGITATION. NAHUN CARE DONE. DEPENDS CHANGED. 2 PERSON ASSIST BACK TO CHAIR. PT CONTINUES TO TALK TO PEOPLE WHO ARE NOT IN THE ROOM ABOUT A "BROWN VEST OVER THERE. NO ADDITIONAL NEEDS. CALL LIGHT WITHIN REACH. CHAIR ALARM ON.
--- NOTE | 2022-03-01 10:31 | NUR ---
AGITATION CONTINUES. PT SETING OFF CHAIR ALARM REPEADILY. 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 CHAIR ALARM SET. PRN SEROQUEL GIVEN. CHAIR ALARM ON. CALL LIGHT WIHTIN REACH. NO ADDITONAL NEEDS.
--- NOTE | 2022-03-01 11:00 | NUR ---
Spoke with OSCAR from [facility]. Asked if this pt could return [facility] as he was there in November. Oscar resonded he will check with nursing.
--- NOTE | 2022-03-01 11:38 | NUR ---
THIS RN TO ROOM TO CHECK ON PT. PT REMAINS UP TO CHAIR. LOOKING OUT THE WINDOW AND TALKING TO HIMSELF WHILE PLAYING WITH SHEETS AND TOWELS IN HIS LAP. PT DENIES PAIN WHEN ASKED AND DENIES NEED TO USE THE RESTROOM. NO ADDITIONAL NEEDS AT THIS TIME. CALL LIGHT WITHIN REACH. CHAIR ALARM ON.
--- NOTE | 2022-03-01 12:28 | NUR ---
OCCUPATIONAL THERAPIST REPORTS TO THIS RN THAT PT WAS UNCOOPERATIVE WITH THERAPY AND IS NOW SOILED WITH URINE. THIS RN TO ROOM. DEPENDS CHANGED. NAHUN CARE DONE. DEPENDS SATURATED WITH URINE. PT CONTINUES TO REPORT HE IS OUTSIDE WITH THE HORSES. PT TALKS ABOUT DOGS THAT ARE IN THE ROOM. PT BACK TO CHAIR. SET UP / OPERATOR ASSITING PT WITH EATING LUNCH. CHAIR ALARM PLACED. CALL LIGHT WITHIN REACH. 1:[address]
--- NOTE | 2022-03-01 12:31 | NUR ---
pt up in chair and requested to be dressed in personal clothes. pt had pocket knife in pants. pocket knife was taken out of pants and placed on counter by sink gildardo correa notified
--- NOTE | 2022-03-01 12:34 | NUR ---
PT SITTING IN CHAIR, VERY CONFUSED AND DISORIENTED TODAY-MUCH MORE SO THAN PREVIOUS. TALKING TO PEOPLE NOT IN RM, TRYING TO GET OUT OF CHAIR. SHARED WITH BRIANNA VILLARREAL, SHE NOTICED WELL. WILL FOLLOW
--- NOTE | 2022-03-01 13:00 | NUR ---
UPDATED DR REYES ON PTS AGITATION. NO NEW ORDERS A THIS TIME. PT REMAINSUP TO CHAIR. CALL LIGHT WITHIN REACH. 1:[address]
--- NOTE | 2022-03-01 13:47 | NUR ---
AFTERNOON ASSESSMENT AND MEDICATION DUE. PT REMAINS UP TO CHAIR. PT HAS A FRIEND VIGITING. PT CONTINUES TO BE RESTLESS AND CONFUSED. PT DISOREINTED TO ALL. PT FOLLOWS LIMITED DIRECTIONS AND NEEDS FREQUENT REORIENTATION AND QUEING. PT REPORTS HE NEEDS TO VOID. PT UP TO STAND AND URINAL PROVIDED. PTS AGITATION INCREASES AND PT WANTS BACK TO THE CHAIR. PT BACK TO CHAIR. TRYING TO CLIMB OUT OF CHAIR. PT STATES IT IS "1985" AND IS AT "MY HOME IN [facility] PT DENIES PAIN AND NAUSEA. NIH SCORE UNCHANGED. PUPILS UNCHANGED. NO FACIAL ASEMETRY. 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 STRONG PLANTAR AND DORSI FLEXION. LUNG SOUNDS CLEAR. BOWEL TONES ACTIVE. WORDS SLURRED, PT ABLE TO REPEAT BACK ONE WORD BUT NOT SENTENCES. HEART TONES IRREGULAR PER BASELINE. MEDICATION GIVEN. NO ADDITIONAL NEEDS AT THIS TIME. CHAIR ALARM ON. PTS FRIEND REMAINS AT BEDSIDE. CALL LIGHT WITHIN REACH.
--- NOTE | 2022-03-01 14:30 | NUR ---
PT HERE FOR ACUTE CVA. PT UP TO CHAIR AND BEDSIDE COMODE WITH 2 PERSON ASSIST. PT TOLERATING 2 GM SODIUM DIET WITH VERY MINIMAL APPITITE. LARGE SOFT FORMED BROWN BOWEL MOVEMENT NOTED THIS SHIFT. PT REMAINS DISORIENTED TO ALL BUT SELF. PT IS OCCATIONALLY ABLE TO FOLLOW DIRECTIONS. INCREASED AGIATION THIS SHIFT WITH NEW PRN MEDICATIONS GIVEN. PT NIH SCORE OF 12 THIS SHIFT. PT PUPILS REMAIN IRREGULARLY SHAPED IN RIGHT EYE. PT DOES NOT TRACK WITH EYES OR FOCUS ON ITEMS/PEOPLE. PT TALKING TO PEOPLE WHO ARE NOT IN THE ROOM THIS SHIFT. MD BURNETT. IRREGULAR HEART RATE CONTINUES, RATE CONTROLLED. PT VOIDING QUANTITY SUFFICIENT. PT DOES NOT USE CALL LIGHT. BED/CHAIR ALARM FOR SAFETY.
--- NOTE | 2022-03-01 14:50 | NUR ---
THIS RN TO ROOM TO CHECK ON PT. PT RESTING IN CHAIR WITH EYES CLOSED. RESPIRATIONS EVEN AND UNLABORED. CHAIR ALARM ON. CALL LIGHT WITHIN REACH. PT ALLOWED TO REST.
--- NOTE | 2022-03-01 14:53 | NUR ---
PATIENT IS SLEEPING IN CHAIR.
--- NOTE | 2022-03-01 15:55 | NUR ---
PATIENT WAS TRYING TO GET UP SO I ASKED LIS TO COME AND HELP ME GET HIM TO THE BEDSIDE COMMODE. WE CHANGED HIS TAPED ATTEND AND PUT HIM BACK IN HIS CHAIR WITH CHAIR ALARM ON. AND LIS WENT AND GOT HIM A BLANKET.
--- NOTE | 2022-03-01 16:01 | NUR ---
THIS RN TO ROOM TO CHECK ONPT. PT REMAINS UP TO CHAIR, RESTING WITH EYES CLOSED, RESPIRATIONS EVEN AND UNLABORED. PT REPOSITIONED FOR SAFETY. CALL LIGHT WITHIN REACH. CHAIR ALARM ON. PT ALLOWED TO REST.
--- NOTE | 2022-03-01 16:24 | NUR ---
THIS RN TO ROOM WITH MD FOR ROUNDS. DR. REYES UPDATED ON PT STATUS AND ASSESSMENT. PT ALLOWED TO CONTINUE RESTING THROUGHOUT MD ASSESSMENT TO DECREASE AGITATION. D5LR STARTED AT 85ML/HR PER DR. REYES'S VERBAL ORDER. IV REMAINS WNL WITH NO S/S OF PHLEBITIS NOTED. NO ADDITIONAL NEEDS AT THIS TIME. CALL LIGHT WITHIN REACH. CHAIR ALARM ON.
--- NOTE | 2022-03-01 17:45 | NUR ---
THIS RN TO ROOM TO CHECK ON PT. PT CONTINUES RESTING IN CHAIR WITH EYES CLOSED. PT AWAKENS TO VOICE AND TOUCH. MEDICATION GIVEN. PT HAS DIFFICULTY KEEPING HIS EYES OPEN. 2 PERSON ASSIST WITH FWW BACK TO BED. PT KEEPS EYES CLOSED AND NEEDS FREQUENT CUEING WHILE MOVING BACK TO BED. PT DENIES NEED TO USE THE RESTROOM. DEPENDS DRY. PT CHANGED FROM CLOTHES INTO GOWN FOR BED. PT RESTING IN BED, HEAD OF BED ELEVATED TO 25 DEGREES. BED RAILS UP. BED ALARM ON. PT FALLS RIGHT BACK TO SLEEP. CALL LIGHT WIHTIN REACH.
--- NOTE | 2022-03-01 18:31 | NUR ---
BED ALARM SOUNDING. PT TRYING TO GET OUT OF BED. PT STATES HE NEEDS TO USE THE TOILET. 2 PERSON ASSIST UP TO BEDSIDE COMODE. PT AGITATED AND STATEING "FUCK!" PT DOES NOT FOLLOW DIRECTIONS OR QUEING AT THIS TIME AND HAS DIFFICULTY MOVING TO COMODE. PT MISSES COMODE. LEGS AND NAHUN ARE CLEANED. FRESH DEPENDS IN PLACE. 2 PERSON ASSIST BACK TO BED. PT SATES "I NEED TO GO TO [place] RIGHT NOW." PT REORIENTED TO PLACE AND SITUATION. PT REPOSITIONED IN BED. HEAD OF BED ELEVATED TO 25 DEGREES. BED RAILS UP. BED ALARM ON. PT RESTING WITH EYES CLOSED. RESPIRATIONS EVEN AND UNLABORED. CALL LIGHT WITHIN REACH.
--- NOTE | 2022-03-01 19:32 | NUR ---
received report from offgoing shift. Pt resting in bed, no signs of pain or discomfort. breathing is even, unlabored. Pt call light in reach.
--- NOTE | 2022-03-01 19:54 | NUR ---
IN PT ROOM FOR ROUNDING, VS, ASSESSMENT. PT RESTING IN BED, BREATHING IS EVEN AND UNLABORED. PT COOPERATIUE WITH PROCESS. PT CALL LIGHT IN REACH, COMPLAINS OF HAVING TO PEE,
--- NOTE | 2022-03-01 21:12 | NUR ---
IN PT ROOM FOR ROUNDING, PT RESTING, BREATHING EVEN AND REGULAR, UNLABORED. PT HAS NO SIGNS OF DISCOMFORT, HAS CALL LIGHT IN REACH.
--- NOTE | 2022-03-02 00:22 | NUR ---
IN PT ROOM FOR ROUNDING. PT IS RESTING, BLANKET AT THE END OF HIS BED, BREATHING EVEN AND UNLABORED. PT CALL LIGHT IS IN REACH, NO INDICATIONS OF PAIN OR DISTRESS.
--- NOTE | 2022-03-02 01:41 | NUR ---
In pt room for rounding, pt assisted with changing clothing/bedding/repositioning. Pt resting well, breathing is even and unlabored, no complaints of pain
--- NOTE | 2022-03-02 02:23 | NUR ---
BED ALARM SOUNDING. IN TO ASSIST PT USE URINAL TO VOID 150 ML CLEAR YELLOW URINE. PT INCONTINENT OF URINE WELL. NAHUN CARE DONE, CLEAN BRIEF PLACED. 2PA TO REPOSITION IN BED. PT ABLE TO PARTICIPATE IN CARES AND FOLLOW DIRECTIONS. NO FURTHER NEEDS. BED ALARM IN PLACE. PT IN VIEW OF NURSES STATION.
--- NOTE | 2022-03-02 02:31 | NUR ---
IN PT ROOM FOR ROUNDING. PT RESTING, BREATHING IS EVEN AND UNLABORED, NO INDICATIONS OF PAIN OR DISCOMFORT. PT CALL LIGHT IN REACH,
--- NOTE | 2022-03-02 04:08 | NUR ---
IN PT ROOM FOR ROUNDING. PT RESTING, BREATHING EVEN AND UNLABORED, NO COMPLAINT OF PAIN OR DISCOMFORT. PT CALL LIGHT IN REACH.
--- NOTE | 2022-03-02 05:49 | NUR ---
IN PT ROOM FOR ROUNDING, PT RESTING, NO INDICATIONS OF PAIN OR DISCOMFORT, BREATHING IS EVEN AND UNLABORED. PT CALL LIGHT IN REACH
--- NOTE | 2022-03-02 06:46 | NUR ---
IN PT ROOM FOR ROUNDING, VS, I&O'S. PT SEEN TO HAVE BLOOD IN MOUTH, UNCERTAIN TO ORIGIN, NO COMPLAINT OF PAIN. PT MOUTH SWABBED AND CLEANED, DURING CARES NOTICED THAT THE PT "CHOMPS" HIS TEETH TOGETHER SUBCONSCIOUSLY AND THERE APPEAR TO BE TWO HOPE ON THE END OF THE PT TONGUE, OSSIBLE BITE HOPE. PT VSS, CALL LIGHT IN REACH.
--- NOTE | 2022-03-02 10:15 | NUR ---
Spoke with ENMANUEL from [facility]. He states pt was denied placement due to his behaviors. I will call and fax [facility].
--- NOTE | 2022-03-02 10:24 | NUR ---
REPORT RECEIVED FROM NIGHT RN AND PT. CARE RESUMED. PT. IS DROWSY BUT AWAKENS TO VOICE. ORIENTED TO SELF. HE IS CALM AND PLEASANT AND FOLLOWS SOME COMMANDS. ASSESSMENT COMPLETED. PT. ASSISTED WITH EATING BREAKFAST AND HAS A GOOD APPETITE. LEFT RESTING WITH ALARM ON AND CURTAIN OPEN.
--- NOTE | 2022-03-02 12:04 | NUR ---
ROUNDING ON PT. HE IS RESTING WITH EYES CLOSED AND AWAKENS EASILY TO VOICE. ASSISTED WITH DRINKING WATER. CHAIR ALARM ON.
--- NOTE | 2022-03-02 13:00 | NUR ---
Spoke with Carmen Holt from [facility] and she did receive a call from mayi Hong POA/Medical Rep.
--- NOTE | 2022-03-02 13:24 | NUR ---
PT. STILL DROWSY BUT AWAKENS TO VOICE. ASSISTED WITH EATING LUNCH. PT. HAVING DIFFICULTY FEEDING HIMSELF. HE IS FOLLOWING COMMANDS AND ANSWERING QUESTIONS. LEFT RESTING WITH ALARM ON AND CURTAIN OPEN.
--- NOTE | 2022-03-02 14:40 | NUR ---
Called and spoke with Marie, director [facility]. She requests chart and states they may have a bed in their Mens unit or other house in [place]. If those are not available, they may have a bed open in [place]. Chart with H&P, progress notes, med list, PT/OT notes. Called and spoke with Dr. Damian and he states pt may discharge tomorrow if a place is found.
--- NOTE | 2022-03-02 14:45 | NUR ---
Called and spoke with Carmen ELLIS. She states she is with Michelle now and Michelle is heading our way to assess pt for exterminator helper medicaid. She was told pt was sleeping and was not sure if she should visit. Asked her to please go ahead with pts assessment. She will see him today.
--- NOTE | 2022-03-02 15:00 | NUR ---
WENT IN TO PATIENT'S ROOM AND ASKED HIM IF HE WANTED TO EAT MORE OF HIS FOOD AND HE SAID YES. SO I FED PATIENT UNTIL HE SAID HE WAS FULL. THAN TIA AND I GOT HIM UP TO THE BEDSIDE COMMODE THAN BACK TO HIS CHAIR. TIA GOT HIM A WARM BLANKET.
--- NOTE | 2022-03-02 15:09 | NUR ---
BRIANNA APPIAH REQUESTED I LET PT SLEEP. WILL CHECK AGAIN
--- NOTE | 2022-03-02 15:30 | NUR ---
Notified by staff [facility] is here. Pt is sleepy and having difficulty speaking with [place]. To room, pt is drowsy, but awake and answering all questions. Pt agrees to [facility] eval for medicaid and assistance. Pt is appropriate with answers, stating he cannot walk without assist, was not able to feed himself as he could not see his food.
--- NOTE | 2022-03-02 15:37 | NUR ---
[facility] HERE TO INTERVIEW PT AND ASSISTED BY THIS NURSE WITH QUESTIONS. CASE MANAGEMENT ALSO CONTACTED TO ASSIST.
--- NOTE | 2022-03-02 16:08 | NUR ---
Called Maite at [facility] and she states she did not recieve all of the chart. Chart refaxed.
--- NOTE | 2022-03-02 18:23 | NUR ---
PT. AWOKE AND IS FULLY ORIENTED, REMEMBERED HIS FAMILY MEMBERS PHONE NUMBER TO CALL, AND IS FEEDING HIMSELF. HE DENIES PAIN AND REPORTS HE IS STILL SLEEPY.
--- NOTE | 2022-03-02 19:40 | NUR ---
Patient up in chair. Occasionally calls out for help dialing phone numbers on personal cell phone. Chair alarm is in place. Patient responding appropriately.
--- NOTE | 2022-03-02 21:40 | NUR ---
IN TO GET PT VITALS, PT ASSISTED OFF OF RECLINER, 2PA VOID WITH URINAL, PT BACK IN RECLINER, CHAIR ALARM IN USE, NO FURTHER NEEDS AT THIS TIME
--- NOTE | 2022-03-03 00:43 | NUR ---
IN TO CHECK ON PT, PT DONE WITH SNACK, SODA FILLED
--- NOTE | 2022-03-03 01:12 | NUR ---
Patient sleeping in chair. Has been calling appropriately w/call light. Chair alarm in place. Call light within reach.
--- NOTE | 2022-03-03 04:11 | NUR ---
Patient is slightly confused regarding date/time. Forgetful. Has called appropriately. Continues to have difficulty w/vision. Lung sounds clear bilat. On RA. Bowel sounds active. One BM on shift. Ambulates w/assist of 1 and walker. Requires extensive queing for directions. Saline locked. Eating/drinking well.
--- NOTE | 2022-03-03 08:22 | NUR ---
PT CHAIR ALARM SOUNDED WHEN PT STOOD UP. THIS CNA2 WENT INTO ROOM AND ASSISTED PT W/STANDING W/FWW IN FRONT OF CHAIR TO USE URINAL. PT WAS ABLE TO VOID HOLDING URINAL HIMSELF WHILE I HELED STEADY HIM. PT SAT BACK INTO CHAIR AND CHAIR ALARM WAS SET. PT REQUESTED PUDDING. PT ABLE TO EAT AFTER SET UP. NO OTHER REQUESTS AT THIS TIME. CALL LIGHT IN REACH.
--- NOTE | 2022-03-03 08:54 | NUR ---
REPORT RECEIVED FROM NIGHT RN AND PT CARE RESUMED. PT. IS UP IN THE CHAIR FEEDING HIMSELF. ANSWERING QUESTIONS APPROPRIATELY. MEDS ADMINISTERED AND WILL ASSESS AFTER BREAKFAST. CHAIR ALARM ON.
--- NOTE | 2022-03-03 09:42 | NUR ---
ROUNDING ON PT. HE IS NOW ORIENTED X4. BROUGHT WARM BLANKETS. DENIES FURTHER NEEDS. CHAIR ALARM ON.
--- NOTE | 2022-03-03 10:45 | NUR ---
Spoke with Javi. He is drowsy, but more awake this am. He is unsure where he would like to discharge. He does state he would consider rehab as he has not been able to walk without assist. Unsure if he will accept placement to a residential care or [facility]. Attempted to call Maite, she is out of the office. Left a message asking if she would consider taking this pt. Texted [facility] and asked if they have had time to review the chart.
--- NOTE | 2022-03-03 10:55 | NUR ---
PT. COMPLAINS OF SORENESS ON BUTTOCKS. ASSESSED AN DO SIGN OF SKIN BREAKDOWN. HE REQUESTS "SALVE" AND BARRIER CREAM APPLIED. 1PA BACK TO BED. PT. IS DROWSY BUT ORIENTED. BED ALARM ON.
--- NOTE | 2022-03-03 11:15 | NUR ---
Received a call from [facility] medicaid. [phone]. Asked if she has any place to this pt can be placed. She states no, if we have facilities she could make calls.
--- NOTE | 2022-03-03 14:51 | NUR ---
PT. YELLING "NURSE!" PT ASSISTED WITH USING URINAL. LEFT RESTING WITH BED ALARM ON.
--- NOTE | 2022-03-03 15:48 | NUR ---
PT SLEEPING, GAS METER MECHANIC REQUESTED I NOT DISTURB PT. WILL FOLLOW
--- NOTE | 2022-03-03 16:11 | NUR ---
Lying in bed, quietly. Respirations even and unlabored. Call light in reach. Bed rails up X2. Allowed to rest.
--- NOTE | 2022-03-03 19:20 | NUR ---
PT FAMILY IN TO VISIT, LIGHTS TURNS UP PER PT REQUEST
--- NOTE | 2022-03-03 19:45 | NUR ---
Patient awake in bed. Playing cards with visitors. Denies needs at this time.
--- NOTE | 2022-03-03 20:59 | NUR ---
pt HEARD CALLING OUT "NURSE", ASSISTED pt WITH USE OF URINAL, SMALL 100MLS OUTPUT NOTED. BED ALARM ON AND CALL LIGHT IN REACH.
--- NOTE | 2022-03-03 21:06 | NUR ---
CALL LIGHT ANSWERED, pt WANTS HELP "GETTING STRAIGHTENED OUT". WITH HELP FROM SECOND RN TAQUERIA, pt ROLLED IN BED AND NEW CHUCKS AND BLANKET PROVIDED. BED ALARM RESUMED AND CALL LIGHT IN REACH. NO ADDITIONAL NEEDS OR CONCERNS, WILL MONITOR.
--- NOTE | 2022-03-03 23:12 | NUR ---
IN TO ASSIST PT WITH URINAL, NO FURTHER NEEDS, BED ALARM SET
--- NOTE | 2022-03-04 01:00 | NUR ---
Sleeping in bed. Bed alarm in place. Call light within reach.
--- NOTE | 2022-03-04 02:28 | NUR ---
IN TO ASSIST PT WITH URINAL
--- NOTE | 2022-03-04 04:35 | NUR ---
Uneventful shift. Has remained forgetful. No change in vision. Will alternate between calling out and using call light for needs. Resp clear bilat. On RA. Bowel sounds active. Ambulates w/assist of 1. Has been using urinal at bedside. Saline locked. Adequate intake. Complains of headache. Treated w/PRN tylenol.
--- NOTE | 2022-03-04 08:00 | NUR ---
REPORT RECEIVED FROM NIGHT RN AND PT CARE RESUMED. IV LEAKING AND WAS REMOVED WITH CATH INTACT. HE IS ALERT AND ORIENTED. MD IN THE ROOM. MD UPDATED ON PT. SLEEPING DAY AND NIGHT AND GIVEN VERBAL TO HOLD TRAZADONE TONIGHT. ASSESSMENT COMPLETED AND PT. ASSISTED WITH BREAKFAST SET UP. LEFT RESTING WITH CHAIR ALARM ON AND CURTAIN OPEN.
--- NOTE | 2022-03-04 08:14 | NUR ---
PATIENT UP IN CHAIR FOR MEAL, AM CARE COMPLETED. PT HAS NO OTHER NEEDS AT THIS TIME, CALL LIGHT WITHIN REACH.
--- NOTE | 2022-03-04 09:22 | NUR ---
UPDATED AND ORDERED NO IV.
--- NOTE | 2022-03-04 09:24 | NUR ---
PATIENT IN CHAIR AFTER MEAL. VITALS AND I/O'S COMPLETED. PT HAS NO OTHER NEEDS AT THIS TIME. CALL LIGHT WITHIN REACH.
--- NOTE | 2022-03-04 10:15 | NUR ---
PT. C/O HEADACHE AFTER RECEIVING TYLENOL EARLIER. HE STATES HE IS USED TO TAKING NORCO AND HAS A HEADACHE WITHOUT. ADMIN 1 NORCO. PT. LEFT TO WORK WITH P.T.
--- NOTE | 2022-03-04 11:08 | NUR ---
PT CALL LIGHT ANSWERED. PT SAID THAT HIS "BUTT IS CHAPPED, AND I NEED SOME OF THAT CREAM". PT SAT UP FROM CHAIR USING FWW. BARRIER CREAM APPLIED TO BUTTOCKS. PT LAID BACK DOWN IN CHAIR. WARM BLANKET GIVEN. NO NEEDS. CALL LIGHT WITHIN REACH.
--- NOTE | 2022-03-04 11:50 | NUR ---
RECBEATRIZ VOICEMAIL FROM PATIENT SON AMEYA REGARDING PLACEMENT UPDATE. SPOKE WITH AMEYA, ADVISED THAT WE HAVE NOT HEARD AN DECISION FROM [facility] AT THIS TIME. ADVISED OF DECLINE FROM [facility]. AMEYA ASKING IF SOME FACILITIES WOULD RECONSIDER ACCEPTING THE PATIENT HE HAS IMPROVED OVER THE LAST FEW DAYS. ADVISED THAT WE WILL SPEAK WITH [facility] ON MONDAY FOR POSSIBLE PLACMENT. AMEYA STATES HE WILL BE DRIVING UP TO SEE THE PATIENT OVER THE WEEKEND.
--- NOTE | 2022-03-04 13:10 | NUR ---
PT. FRIEND IN TO VISIT. PT. ASSISTED WITH SHAVING. LEFT RESTING WITH CALL LIGHT IN REACH.
--- NOTE | 2022-03-04 13:42 | NUR ---
PATIENT IN CHAIR AFTER MEAL. VITALS AND I/O'S COMPLETED. CALL LIGHT WITHIN REACH.
--- NOTE | 2022-03-04 14:29 | NUR ---
PATIENT RANG CALL LIGHT AND REQUESTED FOR ME TO "HELP HIM DIAL UP HIS DRUG PERSON." THIS WALL ATTENDANT TOLD THE PT THAT "WE GIVE YOU MEDS HERE A THE HOSPITAL, SO THERE IS NO NEED TO DIAL THE PERSON." THE PT SAID, "WHAT IF I DO NOT AGREE WITH WHAT THEY ARE DOING HERE?" THIS WALL ATTENDANT SAID, "I AM NOT SURE, I COULD GET A NURSE TO TALK TO YOU ABOUT YOUR MEDS." PT STATED HE WOULD, "LIKE TO TALK TO THE DOCTOR WHEN HE GETS A CHANCE THEN." THIS WALL ATTENDANT SAID, "I WILL LET HIM KNOW WHEN I SEE HIM. NURSE BIJAL NOTIFIED OF THIS CONVERSATION. CALL LIGHT WITHIN REACH.
--- NOTE | 2022-03-04 15:21 | NUR ---
PT. MAKING INAPPROPRIATE COMMENTS TOWARD THE LOAN TELLER. HE WAS TOLD THE BEHAVIOR WAS INAPPROPRIATE AND NEEDED TO STOP.
--- NOTE | 2022-03-04 16:30 | NUR ---
TOSHIA REED AND REGAN BUN PANNER FROM [facility] IN TO MEET WITH PATIENT. PER [facility] THE PATIENT HAS STATES THAT HE DOES NOT WISH TO COME TO THEIR FACILITY AT THIS TIME AND HAS DECIDED HE WOULD LIKE TO GO HOME WITH IN HOME CARE. BIJAL REED UPDATED, DISCUSSED HAVING THE STAFF SPEAK WITH THE PATIENT SON AMEYA WHEN HE ARRIVES IN THE AM.
--- NOTE | 2022-03-04 17:30 | NUR ---
PT. BROUGHT SCHEDULED MEDS. FRIEND AT BEDSIDE. HE DENIES PAIN. PT BROUGHT MONEY IN A SILVER MONEY CLIP BY FRIEND AND PT. PLACED ON BESIDE TABLE. . THIS NURSE ASKED PT. IF HE WOULD PLACE MONEY IN THE SAFE FOR SECURITY. PT. REFUSED AND STATES HE WILL KEEP MONEY BESIDE HIM ON TABLE. MONEY CLIP CONTAINS 100 BILLS.
--- NOTE | 2022-03-04 18:02 | NUR ---
PATIENT IN CHAIR AFTER MEAL. VITALS AND I/O'S COMPLETED. PT COMPLAINING OF HEADACHE. NURSE NOTIFIED. CALL LIGHT WITHIN REACH.
--- NOTE | 2022-03-04 18:33 | NUR ---
PATIENT PUSHED CALL LIGHT, THIS LOCK TENDER CHIEF OPERATOR ANSWERED. THE PATIENT ASKED, "ARE YOU ?" THIS LOCK TENDER CHIEF OPERATOR SAID, "YES, I AM." PT SAID, "WELL FUCK ME IN THE ASS". I SAID, "WHAT DO YOU NEED?" PT SAID, "I JUST WANT TO KNOW HOW TO GET THINGS GOING, DO YOU GO HOME?" THIS LOCK TENDER CHIEF OPERATOR SAID, "YES." THERE WAS NO MEDICAL NEED FOR THE CALL LIGHT BEING RANG. NURSE NOTIFIED. CALL LIGHT IN REACH.
--- NOTE | 2022-03-04 18:40 | NUR ---
PT CALL LIGHT ANSWERED. PT SAID "WHEN'S SUPPER" I SAID "SUPPER ALREADY HAPPENED. YOU HAD A HAMBURGER" THE PT SAID "OH THATS RIGHT I THOUGHT THAT WAS LUNCH" I SAID" IS THERE ANYTHING THAT I CAN HELP YOU WITH SIR" PT SAID "YA I CAN'T FIND MY PHONE, I'M EXPECTING A PHONE CALL" UPON ENTERING ROOM, PTS PHONE WAS RIGHT BY HIM ON THE TABLE. I HANDED PT HIS PHONE. CALL LIGHT WITHIN REACH. NO NEEDS.
--- NOTE | 2022-03-04 18:47 | NUR ---
PATIENT CALLED TO "APOLOGIZE TO THE NURSE HE WAS INAPPROPRIATE TO". CALL LIGHT IN REACH.
--- NOTE | 2022-03-04 19:05 | NUR ---
CALL LIGHT ANSWERED. PT STATED "I NEED SOME HELP WITH MY PHONE". UPON ENTERING ROOM PT STATED THAT "I MISSED A PHONE CALL, AND I TRIED REDIALLING IT BUT I DO NOT KNOW HOW". I TOLD HIM I CAN TRY BUT IM NOT SURE HOW TO WORK HIS PHONE. PT STATED "WELL I'LL TELL YOU". I ASSISTED PT WITH PHONE CALL. NO NEEDS. CALL LIGHT WITHIN REACH.
--- NOTE | 2022-03-04 19:45 | NUR ---
This nurse entered patient's room to assist patient w/operating personal phone. Upon entering room, this nurse noted that many white, halved pills were sitting on patiet's lap. Patient denied knowing the pills were there or what they were. This nurse called Daily REED to assist in collecting/documenting pills. All pills were removed from patient's room to be sent to pharmacy. Patient sitting in chair w/call light within reach.
--- NOTE | 2022-03-04 20:05 | NUR ---
call light on, pt looking for call light because it the cord was caught on the bedside table, pt finish his pepsi, chair alarm remains in use
--- NOTE | 2022-03-04 20:32 | NUR ---
rigo light on. pt needs help recording a message on his call light, personal blanket provided
--- NOTE | 2022-03-04 22:48 | NUR ---
pt assisted with urinal
--- NOTE | 2022-03-04 23:41 | NUR ---
call light on, pt states he is all messed up in bed, in to check on pt, legs over the rails, bed alarm was still active, repositioned, up to void, back in bed, no further needs at this time
--- NOTE | 2022-03-05 01:10 | NUR ---
Patient sleeping in bed. Bed alarm in place. Call light within reach.
--- NOTE | 2022-03-05 04:04 | NUR ---
Uneventful shift. Patient has remained slightly confused, very forgetful. More confused than previous shift w/patient. Slowed responses. Drowsy. On RA. Lungs clear bilat. Ambulates w/assist of 1 and walker. Sleeping in bed. Bowel sounds active. No BM on shift. No IV access. Adequate intake and output. Urgency and dribbling w/urination. Has not complained of pain.
--- NOTE | 2022-03-05 06:23 | NUR ---
PT CALLED OUT, IN TO ASSIST WITH URINAL, PT THEN NEEDS TO HAVE A BM, 2PA FWW PIVOT, PT NOT ABLE TO GO, BACK TO BED, ALARM SET
--- NOTE | 2022-03-05 07:01 | NUR ---
REPORT RECEIVED FROM SAROJ REED, ALL QUESTIONS ANSWERED. PT RESTING IN BED WITH EYES CLOSED, RESPIRATIONS EVEN AND UNLABORED. CALL LIGHT WITHIN REACH.
--- NOTE | 2022-03-05 08:35 | NUR ---
Covid swab collected and taken to the lab for processing. Pt did not let me get to the back of the nares and then refused to allow me to do the other side of the nose. I did manage to get him to finally agree to doing the other nare but again it was not to the back of the nares.
--- NOTE | 2022-03-05 08:36 | NUR ---
MORNING ASSESSMENT COMPLETE. PT SITTING UP IN CHAIR, EATING BREAKFAST. ORIENTED TO PERSON, PLACE, UNABLE TO STATE DATE. APPEARS FORGETFUL OF CURRENT SITUATION. CALL LIGHT IN REACH, WITHIN VIEW OF NURSES STATION. PT DENIES FURTHER NEEDS AT THIS TIME.
--- NOTE | 2022-03-05 08:47 | NUR ---
PATIENT UP IN CHAIR FOR MEAL. AM CARE COMPLETED, PT HAS NO OTHER NEEDS AT THIS TIME. CHAIR ALARM ON, CALL LIGHT WITHIN REACH.
--- NOTE | 2022-03-05 09:17 | NUR ---
PATIENT IN CHAIR VISITING WITH SON. VITALS AND I/O'S COMPLETED. PT HAS NO OTHER NEEDS AT THIS TIME. CALL LIGHT WITHIN REACH.
--- NOTE | 2022-03-05 09:36 | NUR ---
PT SITTING UP IN RECLINER. PT SON AT BEDSIDE. PT DENIES NEEDS AT THIS TIME. DOES STATE HE "WILL NOT GO TO A FACILITY" AND "JUST WANTS TO GO HOME"
--- NOTE | 2022-03-05 11:02 | NUR ---
PT RESTING IN CHAIR, DENIES PAIN OR NEEDS AT THIS TIME. CALL LIGHT IN REACH.
--- NOTE | 2022-03-05 11:12 | NUR ---
IN ROOM TO ASSIST PT TO USE URINAL. DENIES FURTHER NEEDS AT THIS TIME. RE-ORIENTED TO CALL LIGHT, WITHIN REACH. BED ALARM ON.
--- NOTE | 2022-03-05 12:05 | NUR ---
pt yelling out from room. upon entering room i asked pt what he needed. pt did not reply. i asked pt if he was done eating and he said yes. prior to leaving room, pt co pain. he said his head hurt. rn notified. food tray taken from room. no needs. call light within reach.
--- NOTE | 2022-03-05 12:21 | NUR ---
PT C/O HEADACHE, 11/05. REQUESTED AND GIVEN PRN TYLENOL, SEE EMAR. PT DENIES FURTHER NEEDS AT THIS TIME. CALL LIGHT IN REACH AND CHAIR ALARM ON.
--- NOTE | 2022-03-05 13:26 | NUR ---
PATIENT IN CHAIR AFTER MEAL. VITALS AND I/O'S COMPLETED. CHAIR ALARM ON, PT HAS NO OTHER NEEDS AT THIS TIME. CALL LIGHT WITHIN REACH.
--- NOTE | 2022-03-05 13:50 | NUR ---
PT ASSISTED TO BATHROOM SBA BY 1 NAPHTHA WASHING SYSTEM OPERATOR USING FWW. PT WAS VERY CONFUSED AND HAD ZERO SENSE OF DIRECTION WHEN NAVIGATING HIMSELF TO THE RESTROOM. PT ASSISTED BACK TO CHAIR BY NAPHTHA WASHING SYSTEM OPERATOR SBA FWW. PT WIPED DOWN W BED BATH WIPES ON UPPER BODY. DEODARNT APPLIED, NEW GOWN PUT ON PT. CHAIR ALARM SET. NO FURTHER NEEDS. CALL LIGHT WITHIN REACH.
--- NOTE | 2022-03-05 14:10 | NUR ---
PAIN REASSESSMENT, PT DENIES PAIN AT THIS TIME. SITTING IN RECLINER, PT ORIENTED X4, NEEDS REDIRECTION AT TIMES. DENIES FURTHER NEEDS AT THIS TIME. CALL LIGHT IN REACH, RE-INSTRUCTED ON USE. CHAIR ALARM ON.
--- NOTE | 2022-03-05 15:51 | NUR ---
IN ROOM FOR ROUNDING ON PT, PT HOLDING BOTTLE OF SODA WITH SODA SPILLED ON FLOOR IN FRONT OF HIM WELL PT MONEY SCATTERED ON FLOOR AND IN CHAIR. CLEANED SODA, AND PICKED UP MONEY, ASKED IF IT WERE OK TO PUT MONEY IN SAFE, PT DECLINED STATED HE WANTED IT AT HIS BEDSIDE. MONEY PLACED IN MONEY CLIP ON BEDSIDE TABLE. PT SLOW TO RESPOND TO QUESTIONS AT THIS TIME, APPEARED CONFUSED YET PT ORIENTED TO PERSON, PLACE, DATE AND SITUATION. 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 INFORMED DR TENORIO OF PT BEING SLOW RESPOND AND APPEARING CONFUSED YET ORIENTED AND NOT WEAKNESS. NO NEW ORDERS RECIEVED. CALL LIGHT IN REACH. CHAIR ALARM ON. PT DENIES NEEDS AT THIS TIME.
--- NOTE | 2022-03-05 16:10 | NUR ---
PT YELLING OUT FOR STAFF. UPON ENTERING ROOM AND ASKING PT WHAT HE NEEDED, HE STATED HE NEEDED TO URINATE. PT ASSISTED OUT OF CHAIR AND STANDING UP USING FWW BY 1 CIGARETTE EXAMINER ASSIST. URINAL USED. PT ASSISTED BACK INTO CHAIR. CHAIR ALARM SET. PT COVERED BACK UP W PTS OWN BLANKET. NO NEEDS. CALL LIGHT WITHIN REACH.
--- NOTE | 2022-03-05 17:58 | NUR ---
PATIENT RESTING IN CHAIR AFTER MEAL. PT STATED HE WAS "NOT VERY HUNGRY". VITALS AND I/O'S COMPLETED. CHAIR ALARM ON. PT HAS NO OTHER NEEDS AT THIS TIME. CALL LIGHT WITHIN REACH.
--- NOTE | 2022-03-05 18:02 | NUR ---
REPORT FROM GOLDIE REED THAT FAMILY HAD VERBALIZED CONCERN THAT PT APPEARS DIFFERENT THAN HE HAS BEEN. IN ROOM TO ASSESS PT. PT SLOW TO RESPOND, UNABLE TO STATE NAME AND BIRTHDAY UNTIL ASKED 5 TIMES. PT ABLE TO STATE PLACE, SITUATION AND MONTH. 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 DISCUSSED WITH DR TENORIO FAMILY CONCERNS AND ASSESSMENT INFORMATION. ORDERS FOR CBC, CMP AND UA ORDERED.
--- NOTE | 2022-03-05 19:10 | NUR ---
RECEIVED REPORT FROM SARAH ESCOBAR RN. pt RESTING IN BED. pt AGREED TO HAVE MONEY COUNTED. UNABLE TO SIGN AT THIS TIME. COUNTED MONEY AT BEDSIDE WITH SARAH AND COSIGNED IN FRONT OF pt. NO REQUESTS AT THIS TIME. CALL LIGHT WITHIN REACH. DOOR AND CURTAIN OPEN TO NURSES STATION. BED ALARM ON.
--- NOTE | 2022-03-05 20:13 | NUR ---
ASSISTED PRIMARY NURSE WITH [facility] AND PT. VITALS AND I/OS. CALL LIGHT LEFT WITHIN REACH. NO OTHER IMMEDIATE NEEDS AT THIS TIME.
--- NOTE | 2022-03-05 20:19 | NUR ---
CALLED IN TO ROOM BY RAYMOND MILL OPERATOR. pt INCONT OF URINE. ASSISTED TO CLEAN pt. pt VERY UNCOMFORTABLE WITH WET WIPES, KEPT PUSHING THIS RN'S HAND AWAY AND SAYING "NO" UNABLE TO OBTAIN IF pt COLD FROM PERICARE OR IF HE WAS PAINFUL. pt HAD TROUBLE FOLLOWING DIRECTIONS. ORIENTED TO SELF, PLACE, AND SITUATION. ABLE TO SWALLOW MEDICATIONS WITHOUT ISSUE. 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 pt RESTING IN BED WITH BED ALARM ON. CURTAIN AND DOOR OPEN TO NURSES STATION. CALL LIGHT WITHIN REACH.
--- NOTE | 2022-03-05 21:05 | NUR ---
PT CALLS TO USE URINAL, PT UNABLE TO USE URINAL BUT IS ALREADY INCONTINENT OF URINE. BRIEFS CHANGED. PT REPOSITIONED. NO OTHER NEEDS AT THIS TIME. CALL LIGHT IN REACH.
--- NOTE | 2022-03-05 21:55 | NUR ---
IN TO GIVE ANTIBIOTIC. pt DENIES PAIN. REPORTS FEELING COLD. APPLIED ANOTHER BLANKET. pt SWALLOWED PILLS WITHOUT ISSUE. BED ALARM ON. CURTAIN AND DOOR OPEN TO NURSES STATION.
--- NOTE | 2022-03-05 23:18 | NUR ---
IN TO START IV, pt DIFFICULT START HE PULLS AWAY WHEN POKED. SUCCESSFUL ON THIRD ATTEMPT, IV FLUIDS STARTED PER ORDER (SEE MAR). pt INCONT FRESH DEPENDS AND PERICARE. BED ALARM ON. CALL LIGHT WITHIN REACH.
--- NOTE | 2022-03-06 00:15 | NUR ---
BED ALARMING. THIS RN IN TO ASSIST. pt UNSURE WHAT HE WANTS TO DO, SITTING AT SIDE OF BED. BACK TO BED. BED ALARM ON. CURTAIN AND DOOR OPEN TO NURSES STATION. ATTENDS DRY AT THIS TIME.
--- NOTE | 2022-03-06 01:30 | NUR ---
BED ALARMING. THIS RN IN TO ASSIST. pt MOVING AROUND IN BED. NO REQUESTS AT THIS TIME. ATTENDS DRY AT THIS TIME. CALL LIGHT WITHIN REACH. BED ALARM ON. CURATIN AND DOOR OPEN TO NURSES STATION.
--- NOTE | 2022-03-06 02:54 | NUR ---
ROUNDED ON pt. pt MOVING AROUND IN BED TRYING TO COVER FACE. pt WET. PERICARE DONE, FRESH DEPENDS. DENIES PAIN. ASSESSMENT UNCHANGED. CALL LIGHT WITHIN REACH.
--- NOTE | 2022-03-06 05:19 | NUR ---
VITALS DONE. pt RECENTLY CHANGED BY STAFF. pt DENIES PAIN. pt REQUIRED VERBAL CUES TO HOLD STILL FOR BLOOD PRESSURE. ASSISTED WITH BLANKETS. CALL LIGHT WITHIN REACH. BED ALARM ON. CURTAIN AND DOOR OPEN TO NURSES STATION.
--- NOTE | 2022-03-06 07:36 | NUR ---
RECIEVED SHIFT REPORT. PT RESTING IN BED, EYES CLOSED. CALL LIGHT WITHIN REACH. BED ALARM ON.
--- NOTE | 2022-03-06 08:00 | NUR ---
MORNING ASSESSMENT COMPLETE. PT SITTING UP RIGHT IN CHAIR. DROWSY BUT EASY TO AROUSE. PT IS ORIENTED TO PERSON, PLACE, AND SITUATION. PUPILS BILAT RESPONSIVE TO LIGHT. PT ABLE TO FOLLOW FINGER TO THE RIGHT SIDE, TROUBLE TRACKING TO THE LEFT. EQUAL BILAT HAND RN PSYCH STRENGTH AND COORDINATION. PT REQUIRES FREQUENT PROMPTING AND REDIRECTION. CHAIR ALARM IS ON. CALL LIGHT WITHIN REACH.
--- NOTE | 2022-03-06 08:18 | NUR ---
PATIENT IN CHAIR FOR MEAL. AM CARE COMPLETED. PT HAS NO OTHER NEEDS AT THIS TIME, CALL LIGHT WITHIN REACH.
--- NOTE | 2022-03-06 08:38 | NUR ---
PT STATES HE IS IN PAIN, BUT UNABLE TO RATE OR LOCALIZE. FLACC SCALE USED RATED 2. PT RECIEVED ROMAN AT 0642. WILL FOLLOW UP WITH REASSESSMENT.
--- NOTE | 2022-03-06 09:26 | NUR ---
PATIENT IN CHAIR AFTER MEAL. VITALS AND I/O'S COMPLETED. CALL LIGHT WITHIN REACH.
--- NOTE | 2022-03-06 10:15 | NUR ---
ASSISTED PT FROM CHAIR TO RESTROOM 2 PERSON ASSIST AND FWW. PT NEEDED CONTINUED REDIRECTION AND PROMPTING. BACK TO RECLINER, CHAIR ALARM ON. CALL LIGHT IN REACH. DR TENORIO IN ROOM, MENTIONED BP READINGS LOWER THAN HAVE BEEN, LAST BP 104/54 MAP 65. NO NEW ORDERS AT THIS TIME.
--- NOTE | 2022-03-06 11:01 | NUR ---
PT IN CHAIR RESTING. CHAIR ALARM ON. CALL LIGHT WITHIN REACH.
--- NOTE | 2022-03-06 12:15 | NUR ---
PT IN CHAIR RESTING, CHAIR ALARM ON, CALL LIGHT IN PLACE.
--- NOTE | 2022-03-06 13:22 | NUR ---
PT UP RIGHT IN CHAIR. AMBULATED 2 PERSON WITH FWW TO THE BED WITHOUT DIFFICULTY. WAS ABLE TO FOLLOW COMMANDS. ONCE IN BED BED ALARM ON AND CALL LIGHT WITHIN REACH.
--- NOTE | 2022-03-06 14:02 | NUR ---
PATIENT IN BED RESTING. VITALS AND I/O'S COMPLETED. PT HAS NO OTHER NEEDS AT THIS TIME. CALL LIGHT WITHIN REACH.
--- NOTE | 2022-03-06 15:00 | NUR ---
PT LAYING IN BED, SHOUTING "NURSE". PT STATED HE NEEDED TO URINATE. PT APPEARS MORE RESPONSIVE THAN PRIOR IN THE SHIFT. ANSWERING QUESTION AND QUICKER TO RESPONSE.
--- NOTE | 2022-03-06 16:31 | NUR ---
SPOKE WITH DR TENORIO REGARDING SODIUM OF 128, VERBAL ORDER TO HOLD NS AT THIS TIME. LAB WILL BE REDRAWN AT 1999.
--- NOTE | 2022-03-06 16:36 | NUR ---
PT RESTING IN BED, EYES CLOSED. BED ALARM ON. CALL LIGHT WITHIN REACH.
--- NOTE | 2022-03-06 17:48 | NUR ---
GOT PT UP TO CHAIR FOR DINNER. 2 PERSON ASSIST. PT DENIES PAIN AT THIS TIME. CHAIR ALARM ON. CALL LIGHT WITHIN REACH.
--- NOTE | 2022-03-06 18:48 | NUR ---
PT IN CHAIR RESTING, EYES CLOSED. CHAIR ALARM ON. CALL LIGHT WITHIN REACH.
--- NOTE | 2022-03-06 19:00 | NUR ---
BEDSIDE REPORT RECEIVED FROM OFFGOING RN. PT SITTING UP IN CHAIR, CHAIR ALARM IN PLACE. PT'S FRIEND VISITING AT CHAIRSIDE. NEEDS DENIED AT THIS TIME. CALL LIGHT IN REACH.
--- NOTE | 2022-03-06 19:41 | NUR ---
PT'S FRIEND NOTIFIED VISUAL DESIGNER THAT PT NEEDS TO USE THE BATHROOM. PT UP TO BATHROOM AND BACK TO CHAIR WITH 1PA AND FWW. PT NEEDS FREQUENT DIRECTIONN, UNABLE TO FOLLOW DIRECTION APPRORIATELY AT TIMES. PT REPORTS HEADACHE. STATES HE DOESN'T WANT "ANY DAMN TYLENOL. IT DOESN'T DO ANY GOOD." COOL WASH CLOTH PROVIDED. CHAIR ALARM REACTIVATED. PT DENIES FURTHER NEEDS AT THIS TIME. CALL LIGYELENA IN REACH.
--- NOTE | 2022-03-06 20:56 | NUR ---
PT ASSESSMENT COMPLETE. PT RATES PAIN 8/10 HEADACHE AND BLE PAIN. PRN ADMINISTERED, SEE EMAR. PT DENIES SOB OR NAUSEA. PT DISORIENTED TO DATE AND EVENT, OTHERWISE ORIENTED. PT DROWSY THROUGHOUT ASSESSMENT. WAKES EASILY TO VOICE AND ANSWERS QUESTIONS, RETURNS TO SLEEP QUICKLY. IV FLUSHED WITH 10 ML NS. BLOOD RETURN NOTED. WNL. ATTENDS IN PLACE FOR INCONTINENCE. PT TRANSFERS TO BED. BED ALARM ACTIVE. WARM BLANKET PROVIDED. PT DENIES FURTHER NEEDS AT THIS TIME. CALL LIGHT IN REACH. ROOM IN VIEW OF RN STATION WITH CURTAIN OPEN.
--- NOTE | 2022-03-06 21:13 | NUR ---
PT SHOUTING "NURSE". WATCH CRYSTAL CUTTER TO ROOM, PT REQUESTS TO USE THE URINAL, ASSISTED BY THIS WATCH CRYSTAL CUTTER. PT ENCOURAGED TO KEEP HIS HANDS OUT OF HIS ATTENDS. FURTHER NEEDS DENIED AT THIS TIME. CALL LIGHT IN REACH.
--- NOTE | 2022-03-06 21:40 | NUR ---
PLACED CALL TO MD. REPORTED NA LAB VALUE. RECEIVED VERBAL ORDER TO KEEP PATIENT SL UNTIL AM LAB DRAW. REPEATED ORDER USING THE READBACK METHOD. NOTIFIED PRIMARY RN.
--- NOTE | 2022-03-06 23:45 | NUR ---
PT RESTING IN BED WITH EYES CLOSED. RESPIRATIONS EVEN AND UNLABORED. PT APPEARS TO BE SLEEPING. CALL LIGHT IN REACH. BED ALARM ACTIVE. ROOM IN VIEW OF RN STATION WITH CURTAIN OPEN.
--- NOTE | 2022-03-07 02:37 | NUR ---
PT ROUNDING. PT FOUND RESTLESS IN BED WITH HANDS IN ATTENDS. PT STATES THAT HE NEEDS TO USE THE URINAL. ATTEMPTED TO ASSIST PT TO USE URINAL, PT UNABLE. PT AMBULATES TO BATHROOM AND BACK TO BED WITH VERY FREQUENT CUEING AND DIRECTION. PT ASSESSMENT COMPLETE. PT STATES THAT HEADACHE PAIN IS UNCHANGED FROM PREVIOUS, RATES 11/05. PRN ADMINISTERED. SEE EMAR. PT DENIES SOB OR NAUSEA. PT REMAINS CONFUSED. DISORIENTED TO PLACE, DATE, EVENT. R PUPIL LARGER THAN LEFT. R ARM AND R LEG ARE WEAK COMPARED TO L. ATTENDS IN PLACE FOR INCONTINENCE. BED ALARM ACTIVE. PT DENIES FURTHER NEEDS. CALL LIGHT IN REACH. ROOM IN VIEW OF RN STATION WITH CURTAIN OPEN.
--- NOTE | 2022-03-07 06:03 | NUR ---
ASSISTED IN USING URINAL. V/S AND I&O'S TAKEN AND CHARTED. PATIENT STATED "I AM HUNGRY" PUDDING PROVIDED. BED ALARM ON FOR SAFETY.
--- NOTE | 2022-03-07 07:40 | NUR ---
PT IN BED. PT ASSISTED TO CHAIR BY 1 PERINATAL DIRECTOR USING FWW. PT CHAIR ALARM SET. WARM BLANKET GIVEN. BED MADE BY PERINATAL DIRECTOR. RN NOTIFIED THAT PT CO HEAD PAIN. NO NEEDS. CALL LIGHT WITHIN REACH.
--- NOTE | 2022-03-07 08:01 | NUR ---
PATIENT CALLING OUT FOR A NURSE. PATIENT REQUESTING A NORCO FOR AMAYA AND BACK PAIN. 1 PO NORCO GIVEN WITH AM MEDS. PATIENT ORIENTED TO PERSON AND PLACE, BUT NOT TIME OR SITUATION. LUNGS CLEAR AND BOWEL TONES ACTIVE. PATIENT UP IN THE BEDSIDE ARMCHAIR AWAITING BREAKFAST. PATIENT SAYS HIS AMAYA IS 9/10. TOOK PILLS WITHOUT DIFFICULTY. CALL LIGHT IS IN REACH. IV FLUSHES WELL.
--- NOTE | 2022-03-07 08:31 | NUR ---
IN CONVERSING WITH THE PATIENT AT THIS TIME. GAVE THIS RN A VERBAL ORDER TO RESTART NS AT 100MLS/HR AND THIS HAS BEEN DONE. REMAINS IN THE ROOM WITH THE PATIENT WHO IS EATING BREAKFAST. CALL LIGHT IN REACH.
--- NOTE | 2022-03-07 08:45 | NUR ---
PER STAFF NOTES AND RAHEEM REED ISSUES NOTED WITH NARCOTIC MEDICATION OVER THE WEEKEND. PATIENT REQUESTED A FRIEND DELIVER CLOTHING AND A BLANKET WHICH SUBSEQUNTLY HAD HOME HYDROCODONE IN THEM. DISCUSSED IN THE AM MEETING THAT AT THIS TIME PATIENT HAS BEEN DECLINED BY ALL PLACEMENT OPTION AND HAS ALSO CONTINUED TO DECLINE PLACEMENT AT THIS TIME. WILL CONTACT PATIENT MATILDE HOU TO DISCUSS THE DIFFICULTIES WE ARE FACING WITH PLACEMENT.
--- NOTE | 2022-03-07 09:09 | NUR ---
PT IN CHAIR RESTING. VITALS AND IS AND OS COMPLETE. PT DENIES NEEDING TO USE RESTROOM. NO NEEDS. CALL LIGHT WITHIN REACH.
--- NOTE | 2022-03-07 10:22 | NUR ---
PATIET RESTING QUIETLY IN THE BEDSIDE ARMCHAIR. EYES CLOSED, RESPIRATIONS ARE REGULAR AND EVEN, CALL LIGHT IS IN REACH.
--- NOTE | 2022-03-07 10:30 | NUR ---
CALLED AND SPOKE WITH PATIENT SON AMEYA. EXPLAINED THAT AT THIS TIME ALL FACILITIES HAVE DECLINED THE PATIENT. ADVISED OF THE ISSUES WITH THE NARCOTICS OVER THE WEEKEND. DISCUSSED THAT AT THIS POINT PATIENT WILL LIKELY NEED TO BE DISCHARGED TO HOME. AMEYA FEELS THAT THIS IS NOT A SAFE DISCHARGE DUE TO THE PATIENT SIGHT ISSUES, BUT UNDERSTANDS THAT THERE IS NO FURTHER NEEDED FOR THE PATIENT TO REMAIN IN THE HOSPITAL. AMEYA STATES THAT HE IS MOST WORRIED ABOUT PATIENT BEING ABLE TO CLIMB THE STAIR INTO HIS TRAILER AND TAKE HIS MEDICATIONS APPROPRIATLY. ADVISED I WILL DISCUSS WITH PT REGARDING THE STAIRS TO MAKE SURE THE PATIENT IS ABLE TO PHYSICALLY NAVIGATE THEM PRIOR TO DISCHARGE. ADVISED THAT PATIENT WILL LIKELY QUALIFY FOR HOME HEALTH AND WILL QUALIFY FOR CAREGIVING ASSISTANCE FROM [facility] WHEN HIS MEDICAID APPLICATION PROCESS IS COMPLETE. WILL UPDATE AMEYA WITH ONGOING ISSUES THROUGHOUT THE DAY.
--- NOTE | 2022-03-07 11:15 | NUR ---
THIS RN IN AND HUNG A NEW BAG OF IV FLUIDS. PATIENT RESTING QUIETLY IN THE BEDSIDE ARMCHAIR WITH FEET ELEVATED. PATIENT'S EYES ARE CLOSED, RESPIRATIONS ARE REGULAR AND EVEN, AND CALL LIGHT IS IN REACH. PATIENT'S CHAIR ALARM IS ON AND HE CAN BE SEEN FROM THE NURSES STATION DESK.
--- NOTE | 2022-03-07 11:55 | NUR ---
OVER TO FLOOR, NOTED MARANDA FROM [facility] AT THE BEDSIDE. THIS RN INTO ROOM. AFTER A LONG DISCUSSION ABOUT STAFF AND [facility] CONCERNS WITH PATIENT, PATIENT CONTINUES TO REFUSE PLACEMENT TO A FACILITY. PATIENT STATES HE FEELS THAT HIS LAST PLACEMENT "WAS A WASTE OF TIME." THIS RN DISCUSSED CONCERNS REGARDING PROPER MEDICATION MANAGEMENT AND ABULATING AROUND THE PATIENT TRAILOR. PATIENT STATES HE IS WILL TO USE PILL BOX FOR ASSISTANCE. PATIENT DOES AGREE WHEN MARANDA OFFERS LIFE ALERT, CAREGIVING SERVICES AND MEALS ON WHEELS. THIS RN DOES HAVE DOUBTS ABOUT THE PATIENT STATED ABILITIES, BUT PATIENT REMAINS CONSISTANT WHEN DECLINING DISCHARGE PLACEMENT OPTIONS. PATIENT IS ORIENT TO DATE, TIME AND PLACE THOUGH HAS ISSUES RECALLING SOME PAST DETAILS. PER MARANDA AT [facility] SHE WILL COMPLETE NEEDS ASSESMENT, PLACE REFERRAL TO FAMILY RESOURCES, PROVIDE LIFE ALERT AND REFER PATIENT TO MEALS ON WHEELS. RAHEEM REED AND DR. TENORIO UPDATE OF THE CONVERSATION. AT THIS TIME THIS RN DOES NOT FEEL THAT DISCHARGE TO HOME IS A SAFE DISCHARGE FOR THE PATIENT, BUT HE HAS DECLINED PLACEMENT TO SNF,[facility] AND RESIDENTIAL CARE.
--- NOTE | 2022-03-07 12:00 | NUR ---
PATIENT CALLING FOR NURSE WANTING A NORCO FOR 9/10 AMAYA. 1 PO NORCO GIVEN AND THIS RN ASSISTED PATIENT WITH URINAL AND 1 INCONTINENCE IN ATTENDS. PATIENT REFUSED TO SIGN HIS MEDICARE LETTER, BUT HE HAS REFUSED TO GO TO A FACILITY AND INSISTS HE IS GOING HOME TO HIS TRAILER. THIS RN HELPED PATIENT DIAL "AMEYA" AND HE HAS TALKING TO AMEYA NOW ON THE PHONE. FELIPE FROM LETTING HIM KNOW HE MAY BE DC'D TOMORROW. CALL LIGHT IN REACH.
--- NOTE | 2022-03-07 13:02 | NUR ---
PT IN CHAIR. VITALS AND IS AND OS COMPLETE. NO NEEDS. CALL LIGHT WITHIN REACH.
--- NOTE | 2022-03-07 13:29 | NUR ---
THIS RN IN TO CHECK ON PATIENT'S AMAYA. PATIENT DENIES AMAYA AT THIS TIME. CALL LIGHT IN REACH. PATIENT HAS NO NURSE CARE NEEDS AT THIS TIME.
--- NOTE | 2022-03-07 15:07 | NUR ---
PATIENT CALLING FOR NURSE. THIS RN INTO ROOM AND ASSISTED PATIENT WITH URINAL. PATIENT DENIES ANY OTHER NEEDS AT THIS TIME, BUT DID ASK ME WHERE HE WAS, AT THIS TIME, HE HAS FORGOTTEN WHERE HE. PATIENT REORIENTED TO WHERE HE WAS AND HE RESPONDED,"WE'LL I'LL BE DAMNED." NEW WARM BLANKET GIVEN AND AFTERNOON ASSESSMENT COMPLETED AND IS ESSENTIALLY UNCHANGED FROM AM. CALL LIGHT IN REACH. CHAIR ALARM IS ON.
--- NOTE | 2022-03-07 15:12 | NUR ---
PT CALLING OUT. WHEN ENTERING ROOM I ASKED PATIENT HOW I COULD HELP HIM HE STATED "I DON'T KNOW". NO NEEDS AT THIS TIME. CALL LIGHT WITHIN REACH.
--- NOTE | 2022-03-07 16:15 | NUR ---
PT IN CHAIR. PT YELLED TO GET ASSISTANCE TO BATHROOM. PT SEEMS VERY DISORIENTED. RN IN ROOM. PT ASSITED TO BATHROOM 2 PA W FWW. PT WAS UNABLE TO FIND THE BATHROOM ON HIS OWN AND NEED DIRECTIONS THE WHOLE WAY THERE. PT ON TOILET AND LEFT TO HAVE PRIVACY W WIPES IN REACH. UPON ENTERING BATHROOM TO CHECK ON PT, PT HAD FECES ALL OVER HIS HANDS AND WIPES. 2 RNS AND 1 COORDINATOR VOLUNTEER SERVICES TO ASSIST PT CLEAN UP. NEW GOWN PUT ON PT WELL. PT ASSISTED BACK TO CHAIR. 2 WARM BLANKETS GIVEN. NO NEEDS. CALL LIGHT WITHIN REACH.
--- NOTE | 2022-03-07 16:23 | NUR ---
THIS RN AND STEPHANIE CARABALLO IN TO 2PA AND FWW TO THE RESTROOM AND BACK TO THE BEDSIDE ARMCHAIR WITH CHAIR ALARM. PATIENT HAD A BM AND VOIDED. PATIENT HAS NO OTHER CARE NEEDS AT THIS TIME. CALL LIGHT IN REACH. WARM BLANKET GIVEN. LEGS ELEVATED.
--- NOTE | 2022-03-07 17:35 | NUR ---
2PA WITH FWW UP FROM BEDSIDE ARMCHAIR TO VOID WITH URINAL AND THEN INTO BED WITH BED ALARM ON. PATIENT HAS NO OTHER CARE NEEDS AT THIS TIME. CALL LIGHT IS IN REACH.
--- NOTE | 2022-03-07 17:49 | NUR ---
PATIENT'S SBP PRESSURES ARE RUNNING 180'S TO 190'S. THIS RN CALLED AND A VERBAL ORDER WAS GIVEN TO GIVE THE 2100 TOPROL NOW AND THIS WAS DONE. PATIENT HAS NO OTHER CARE NEEDS AT THIS TIME. CALL LIGHT IN REACH AND BED ALARM IS ON.
--- NOTE | 2022-03-07 18:56 | NUR ---
PATIENT YELLING FOR PAIN MEDICATION FOR A HEADACHE HE RATES /10. 1PO NORCO GIVEN. PATIENT HAD NO OTHER CARE NEEDS AT THIS TIME. CALL LIGHT IN REACH AND BED ALARM IS ON.
--- NOTE | 2022-03-07 19:00 | NUR ---
REPORT RECEIVED FROM OFFGOING RNRAHEEM. PT RESTING IN BED WITH EYES CLOSED. CALL LIGHT IN REACH. BED ALARM ACTIVE.
--- NOTE | 2022-03-07 19:30 | NUR ---
PT CALLING OUT FOR RN. A/C TECH TO ROOM. ASSISTED PT TO USE THE URINAL AND TAKE A DRINK OF WATER. PT DENIES FURTHER NEEDS. CALL LIGHT IN REACH. BED ALARM ACTIVE ROOM IN VIEW OF RN STATION WITH CURTAIN OPEN.
--- NOTE | 2022-03-07 20:10 | NUR ---
PT CALLING FOR HELP. RN TO ROOM. PT IS UNSURE OF WHAT HE NEEDS. PT ASSESSMENT COMPLETE. PT ORIENTED TO SELF ONLY. PT ALERT. PT REPORTS PAIN 6/10. DENIES NEED FOR PAIN MEDICATION. PT DENIES SOB OR NAUSEA. R PUPIL REMAINS LARGER THAN L. 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 SENSATION INTACT TO ALL EXTREMITIES. PT UP TO BATHROOM AND BACK TO BED WITH 1 PA AND FWW. PT REQUIRES FREQUENT CUEING AND DIRECTION WHILE AMBULATING. ATTENDS IN PLACE FOR INCONTINENCE. IV FLUSHED WITH 10 ML NS. WNL. PATENT. VS OBTAINED. WNL. PT DENIES FURTHER NEEDS AT THIS TIME. CALL LIGHT IN REACH. BED ALARM ACTIVE. ROOM IN VIEW OF RN STATION WITH CURTAIN OPEN.
--- NOTE | 2022-03-07 22:53 | NUR ---
ASSISTED IN USING THE URINAL. CHANGED ATTENDS. WARM BLANKET PROVIDED. BED ALARM ON.
--- NOTE | 2022-03-07 23:19 | NUR ---
PATIENT CAN BE HEARD FROM RN STATION YELLING AND WHISTLING. THIS RN ENTERED PATIENTS ROOM. PATIENT STATED "HELP ME UP OFF THE GROUND". ATTEMPTED TO REORIENT PATIENT TO TIME, PLACE, AND SURROUNDINGS. PATIENT STATED "I DONT GIVE A FUCK". PATIENT STATED "GET ME MY SADDLE PAD STUFF". EDUCATED PATIENT THAT HE IS NOT HOME AND HIS STUFF IS NOT HERE. PATIENT THEN STATED "ITS NONE OF YOUR BUSINESS". ATTEMPTED TO ORIENT PATIENT AGAIN TO THE FACT THAT HE IS IN THE HOSPITAL AND HE HAD A STROKE. PATIENT STATED "OH DONT I KNOW, NOW GET ME MY STUFF". UNABLE TO REORIENT PATIENT AT THIS TIME. PATIENT COVERED SELF WITH BLANKET. THIS RN LEFT THE ROOM. PATIENT IS RESTING IN BED. BED ALARM ON FOR SAFETY. CALL LIGHT IN REACH.
--- NOTE | 2022-03-08 00:17 | NUR ---
PATIENT IS UP IN THE CHAIR THIS TIME. CHAIR ALARM ON. ASSISTED IN FEEDING PUDDING, CRACKERS AND BEEF BROTH.
--- NOTE | 2022-03-08 00:20 | NUR ---
PT CALLING OUT FOR HELP. POTLINE MONITOR AND DAYTIME BABYSITTER TO ROOM. PT UP TO BATHROOM AND INTO RECLINER WITH 1-2 PA AND FWW. PT REQUIRES VERY FREQUENT DIRECTION AND CUEING DURING TRANSFER. PT REPORTING 6/10 PAIN TO BACK, LEGS, AND HEADACHE. PRN ADMINISTERED. SEE EMAR. PT RESTING IN RECLINER WITH LEGS ELEVATED. CHAIR ALARM ACTIVE. ROOM IN VIEW OF RN STATION WITH CURTAIN OPEN.
--- NOTE | 2022-03-08 00:51 | NUR ---
PT ATTEMPTING TO GET OUT OF CHAIR. MENHADEN FISHING CREW MEMBER TO CHAIRSIDE. REDIRECTION PROVIDED. PT ASSISTED TO SCOOT BACK IN RECLINER. CHAIR ALARM ACTIVE. ROOM IN VIEW OF RN STATION WITH CURTAIN OPEN.
--- NOTE | 2022-03-08 01:51 | NUR ---
PT ATTEMPTING TO GET OUT OF RECLINER. PT ASSISTED TO USE THE URINAL AT CHAIR SIDE WITH 2PA. ATTENDS CHANGED. PT ASSESSMENT COMPLETE. PT STATES THAT PAIN IS IMPROVED WITH PAIN MEDICATION. PT ORIENTED TO SELF, OTHER FUNES DISORIENTED. R PUPIL REMAINS LARGER THAN L. R CONSTRUCTION REP STRENGTH REMAINS WEAKER THAN L. IV SL. PT WOULD LIKE TO CONTINUE SITTING IN RECLINER. CHAIR ALARM REMAINS ACTIVE. CALL LIGHT IN REACH. ROOM IN VIEW OF RN STATION WITH CURTAIN OPEN.
--- NOTE | 2022-03-08 07:16 | NUR ---
THIS RN RECEIVED SHIFT REPORT FROM BRIANNA FAJARDO. PATIENT RESTLESS IN BED AND HAS NO SLEPT ALL NIGHT PER REPORT. STEPHANIE REYES SITTING WITH PATIENT AT THIS TIME. CALL LIGHT IS IN REACH.
--- NOTE | 2022-03-08 08:00 | NUR ---
THIS RN IN TO SEE PATIENT. AM ASSESSMENT COMPLETE. PATIENT THINKS HE IS AT THE [place]. THIS RN TRIED TO REORIENT PATIENT THAT HE IS IN THE HOSPITAL. PATIENT PLEASANT AND COOPERATIVE AT THIS TIME. PATIENT'S ATTENDS ARE WET. THIS RN AND STEPHANIE CARABALLO ASSISTED PATIENT IN CHANGING HIS ATTENDS AND HE IS NOW DRY AND RELAXING IN BED LISTENING TO COUNTRY SONGS ON THE RADIO. PATIENT HAS NO OTHER CARE NEEDS AT THIS TIME. CALL LIGHT IN REACH AND BED ALARM ON. PATIENT CAN BE SEEN FROM THE NURSES STATION DESK.
--- NOTE | 2022-03-08 08:29 | NUR ---
IN PT ROOM. PT WAS LEANING OVER HE SITS UP IN BED W HIS TRAY IN FRONT OF HIM. WHEN I THE CAGE UNLOADER ASKED HIM WHAT HE WAS DOING THE PT STATED "I WILL DO ANYTHING I WANT TO".
--- NOTE | 2022-03-08 09:00 | NUR ---
Spoke with Javi. He will not say "yes or no" to placement. Spoke with Dr and to staff. All feel pt is unsafe to go home. Discussed with Cori Estrada. Unclear of a plan at this time. Also spoke with PT. She states pt cannot see and has R side neglect. He is not safe when attempting stairs. Will discuss with Dr. Spencer and Cori further. Awaiting SLUMS test from OT to determine cognitive ability and dementia.
--- NOTE | 2022-03-08 09:45 | NUR ---
PATIENT RESTING QUIETLY IN BED, EYES CLOSED, RESPIRATIONS ARE REULAR AND EVEN, CALL LIGHT IS IN REACH, AND BED ALARM IS ON.
--- NOTE | 2022-03-08 09:45 | NUR ---
Called and spoke with pts Medical Rep. Hal, discussed we are still attempting placement as per 929 meeting today, PT states pt cannot go home and did not feel this was a safe dc. Asked Hal if he is willing to seek guardianship as pt is obviously not able to make decisions on his own at this point. will order SLUMS test for cognitive/dementia screen.
--- NOTE | 2022-03-08 10:15 | NUR ---
IN ROOM TO CHECK ON PT. PT STATED HE IS WAITING ON LOCO. WHEN ASKING PT WHO LOCO WAS HE SAID "LOCO MY FRIEND. HES PICKING ME UP AND WE ARE GOING TO [place]". I ASKED PT WHAT WAS IN [place] AND HE STATED "CATTLE ROPING". "DID YOU KNOW LOCO AND I CATTLE ROPE TO EARN MONEY FOR HIS COWS?". I SAID NO I DID NOT. PT STATED "I DO NOT KNOW WHY I HAVE TO KEEP TELLING YOU". PT STARING OFF WHILE HE LAYS IN BED I CHART THIS NOTE NEXT TO HIM.
--- NOTE | 2022-03-08 10:30 | NUR ---
Called [facility] and discussed this pt with Maite. She requests the chart. Texted Daly at [facility] and asked if they are taking retirement care pts. She requests the chart. Faxed face sheet, H&P,progress notes, covid test, covid vac, med list, PT/OT notes. 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
--- NOTE | 2022-03-08 10:30 | NUR ---
PT STATED HE WANTED TO GET UP BUT WHEN ASKING HIM WHERE TO HE DID NOT HAVE AN ANSWER. 2 CNAS IN ROOM TO GET PT UP. UPON GETTING PT OUT OF BED I NOTICED PT HAD HAD A LG BM THAT HAD GOWN UP ONTO HIS SIDE AND ON HIS SHEETS. PTS BRIEF CHANGED AND LINENS CHANGED WELL. PT PUT INTO CHAIR. 1:1 CONTINUED
--- NOTE | 2022-03-08 10:39 | NUR ---
THIS RN IN TO ASSIST DIRECTOR RECORDS MANAGEMENT'S IN WASHING UP PATIENT AND GETTING HIM CHANGED AFTER A LARGE INCONTINENCE OF STOOL AND URINE. PATIENT NOW SITTING UP IN THE BEDSIDE ARMCHAIR WITH CHAIR ALARM ON AND PO FLUIDS AND CALL LIGHT IN REACH, WITH LEGS ELEVATED AND IN A RECLINED POSITION. THIS RN LEAVING THE ROOM ILYA AND HEMA CNAS AR CONTINUING TO WORK WITH PATIENT.
--- NOTE | 2022-03-08 10:45 | NUR ---
WOOL BROKER (MYSELF SITTING AT COMPUTER) PT SITTING IN CHAIR. PT CO HAVING TO HAVE A BM. RN IN ROOM TO ASSIST PT BACK TO BATHROOM. PT BRIEF CHANGED. PT HAD XL BM. PT ASSISTED BACK TO CHAIR USING FWW 2 PA. PT NOW RESTING IN CHAIR. CHAIR ALARM SET. 1:1 CONTINUED
--- NOTE | 2022-03-08 11:15 | NUR ---
Received a reply to my text to [facility], they are not accepting [facility] care pts at this time.
--- NOTE | 2022-03-08 11:16 | NUR ---
PATIENT HAS A VISITOR IN THE ROOM AT CHAIR SIDE VISITING AT THIS TIME. CHAIR ALARM IS ON. CALL LIGHT IN REACH. PATIENT CAN BE VISUALIZED FROM THE NURSES STATION DESK.
--- NOTE | 2022-03-08 12:29 | NUR ---
PATIENT RESTING QUIETLY IN BED SUPINE, EYES CLOSED, RESPIRATIONS ARE REGULAR AND EVEN, AND CALL LIGHT IS IN REACH. STEPHANIE CARABALLO OBSERVING PATIENT FROM NURSES STATION DESK. BED ALARM IS ON AND CALL LIGHT IS IN REACH.
--- NOTE | 2022-03-08 12:55 | NUR ---
"Nap Time" notice on door. Did not disturb. Offered prayer for comfort and healing from [place].
--- NOTE | 2022-03-08 15:27 | NUR ---
THIS RN IN TO SEE PATIENT. PATIENT REMAINS CONFUSED AND THINKS HE IS AT THE [place] AND HAS TO BE REORIENTED THAT HE IS IN THE HOSPITAL. PATIENT'S VISION SEEMS WORSE TODAY AND CAN'T SEEM TO SEE THINGS THAT ARE RIGHT IN FRONT OF HIM OR TO THE RIGHT OR LEFT, OR AT LEAST NOT CLEARLY, EVEN WITH HIS GLASSES ON. PATIENT REMAINS IN BED NAPPING INTERMITTENTLY BETWEEN NEEDING TO USE THE RESTROOM. BED ALARM ON, CALL LIGHT IN REACH.
--- NOTE | 2022-03-08 19:20 | NUR ---
REPORT FROM RAHEEM Tarango RN, PT APPEARS TO BE SLEEPING, EYES CLOSED, RESP EVEN, DID NOT DISTURB. BED ALARM ON AND CALL LIGHT IN REACH.
--- NOTE | 2022-03-08 21:30 | NUR ---
PT GIVEN PO MEDS WITH HOB UP, TOLLERATED WELL - PT NOT ABLE TO ANSWER BASIC QUESTIONS - NOT ORIENTED, BUT PLEASANT. INC URINE AND ASSISTED TO USE URINAL WITH 50 ML IN URINAL. COMPLETE LINEN CHANGE, NEW ATTENDS - SKIN WNL, INTACT.
--- NOTE | 2022-03-08 23:20 | NUR ---
THIS SHELTER CASE MANAGER AND PRIMARY RN YOBANY Jaeger HELPED PATIENT UP TO THE BEDSIDE COMMODE. CHANGED BED LINEN. CHANGED ATTENDS. PATIENT IS BACK IN BED. BED ALARM ON.
--- NOTE | 2022-03-09 02:59 | NUR ---
pt inc of urine and used his urinal for 100 ml or dark urine. skin wnl - call light in reach - pt opens eyes on verbal ask - oriented to [facility] and the hospital at this time. bed alarm on.
--- NOTE | 2022-03-09 04:07 | NUR ---
PT RAMÓN NURSE. THIS RN INTO ROOM, ASSISTED WITH URINAL VOIDED 100, HAS REDDISH TINT TO URINE, TEAISH COLOR. WARMBLANKETS PROVIDED. THANKED PT FOR CALLING.
--- NOTE | 2022-03-09 05:08 | NUR ---
pt calling out for nurse. assisted to use urinal - urine is getting progressively darker with a red tinge to it (appears like blood). note to to notify, void 50 ml each time with some incontinence.
--- NOTE | 2022-03-09 06:34 | NUR ---
assisted pt to use urinal - void 50 ml of red color urine -discussed with set up and charger, notified in chart note.
--- NOTE | 2022-03-09 07:00 | NUR ---
this rn spoke to dr curry on phone, no new new orders - aware of red in urine.
--- NOTE | 2022-03-09 07:32 | NUR ---
REPORT RECEIVED. PT LEFT UNDISTURBED TO REST MORE. CALL LIGHT IN REACH.
--- NOTE | 2022-03-09 09:30 | NUR ---
ASSESSMENT COMPLETED. PT LYING IN BED. TOO TIRED AND DROWSY TO GET UP FOR BREAKFAST. PT DID NOT EAT. WAKES TO SHAKING AND LOUD VOICES BREIFLY. ABLE TO FOLLOW COMMANDS BUT NEEDS LOTS OF CUES. PT IS DISORIENTED TO PLACE, TIME, SITUATION. TOOK WILL WITH ATER. PT WAS REPORTING NAUSEA SO ZOFRAN WAS ADMINSTERED. DENEIS FURTHER NEEDS. CALL LIGHT IN REACH. BED ALARM IN PLACE.
--- NOTE | 2022-03-09 10:02 | NUR ---
PT YELLING OUT. PT NEEDED TO URINATE. PT ASSISTED W URINAL. PT BLANKETS PUT BACK ON. NO NEEDS. CALL LIGHT WITHIN REACH.
--- NOTE | 2022-03-09 11:00 | NUR ---
Spoke with Naya Cho. They did see and eval pt, he refused replacement at that time. Let her know he now is agreeing to placement this week. She will contact her RN to see if they can still accept. Pt would not be able to admit until next week. Called Shanae at [facility] in [place] and she states they have beds. FAce sheet, H&P, progress notes, Covid test, Covid vaccine, PT note faxed to Shanae.
--- NOTE | 2022-03-09 11:30 | NUR ---
pt visible from nursing station. pt sleeping in bed. bed alarm in place.
--- NOTE | 2022-03-09 13:00 | NUR ---
PT TIRED AND FOUND SLEEPING IN BED. WAKES EASILY TO VERBAL STIMULI. [facility]. PT TOLERATED WELL. BED ALARM PLACED.
--- NOTE | 2022-03-09 14:35 | NUR ---
PT RESTING IN CHAIR. VITALS AND IS AND OS COMPLETE. NO NEEDS. CALL LIGHT WITHIN REACH.
--- NOTE | 2022-03-09 14:38 | NUR ---
PT REPORTED TO BRICKLAYER SEWER FEELINGS OF DIZZINESS WHEN TRANSFERING TO COMMOD AND BACK TO CHAIR. THIS NURSE TO BEDSIDE TO EVALUATE PT. PT NOW DENEIS SYPTOMS. VITALS TAKEN AND STABLE. NO CONCERNS. CALL LIGHT IN REACH. PT STILL UP IN CHAIR.
--- NOTE | 2022-03-09 15:15 | NUR ---
PT REPORTING HIS BOTTOM IS HURTING WHILE SITTING IN CHAIR. 2 PERSON ASSIST BACK TO BED. PT ABLE TO FOLLOW SOME COMMANDS BUT NEEDED LOTS OF CUE TO TURN THE RIGHT WAY. PT VISION IS STILL IMPAIRED. PT FLOATED ON PILLOWS AND BED ALARM WAS PLACED. CALL LIGHT IN REACH.
--- NOTE | 2022-03-09 16:50 | NUR ---
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 Pt was assessed by Michelle on Monday and it was determined pt could care for himself. Let her know I do not understand this as pt cannot see, cannot feed himself, cannot walk stairs. She states they have different qualifiers and it doesn't matter if he can walk into his trailer, only if he can walk inside. She had Michelle, get on the speaker phone. She states when she saw pt last week he qualified, she saw him on Monday and he could walk to the bathroom, so he no longer qualified. He qualifies for a CG in the home for 5 hrs a week to assist with medications. I let her know PT had written a lengthy note stating pt could not dc to home due to unsafe situation and read her the note. She states she will see the pt tomorrow and reassess. Let them know I have contact [facility] and am attempting to place as I was told he qualified for medicaid placement. Will discuss further with Michelle tomorrow when she visits.
--- NOTE | 2022-03-09 17:30 | NUR ---
Called POA and updated to my discussion with [facility] and attempt to place at [facility]. Updated OT completed a SLUMS test. See their note.
--- NOTE | 2022-03-09 17:45 | NUR ---
pt refused to get oob to chair for dinner. pt sat up in bed. visible from nursing station. denies needs. call light in reach.
--- NOTE | 2022-03-09 19:10 | NUR ---
report from Kavitha rn, pt eyes closed, resp even, bed alarm on.
--- NOTE | 2022-03-09 20:07 | NUR ---
pt resting in bed, eyes closed, alarm on, call light in reach- visible from RN station.
--- NOTE | 2022-03-09 21:49 | NUR ---
CHANGED GOWN AND ATTENDS. FACE AND HANDS WASHED. WARM BLANKET PROVIDED. V/S AND I&O'S DONE AND DOCUMENTED. BED ALARM ON FOR SAFETY.
--- NOTE | 2022-03-10 00:20 | NUR ---
resting in bed, alarm on - repositions self. resp even
--- NOTE | 2022-03-10 03:04 | NUR ---
pt resting in bed, eyes closed - moving independently in bed - with alarm on. appears to be picking at air and somewhat restless moving about. call light in reach.
--- NOTE | 2022-03-10 03:12 | NUR ---
rn answered call light - pt asked what time it was. able to state that we are at [facility], and in [place]. attempted to void - attends cdi.denies need. rn and solar energy technician boosted pt up in bed and repositioned. bed alarm on.
--- NOTE | 2022-03-10 03:41 | NUR ---
PT CALLS OUT FOR NURSE - REQUESTS SOMETHING FOR 12/05 HEADACHE. HOB UP AND PO MEDS GIVEN WITH DRINK. REPOSITIONED - CALL LIGHT IN REACH.
--- NOTE | 2022-03-10 06:20 | NUR ---
PO NORCO GIVEN FOR C/O CONTINUED HEADACHE. PT PLEASANT, SAYS THANK YOU AND TOLLERATES PO MED WELL. REPOSITIONED. CALL LIGHT IN REACH. VITALS TAKEN.
--- NOTE | 2022-03-10 08:00 | NUR ---
REPORT RECIEVED, CARE RESUMED. PT RESTING IN BED WITH EYES CLOSED, RESP EVEN AND UNLBORED.
--- NOTE | 2022-03-10 09:29 | NUR ---
PATIENT IN BED. VITAL SIGNS AND I/O DOCUMENTED. PATIENT HAS NO OTHER NEEDS AT THIS TIME. CALL LIGHT WITHIN REACH.
--- NOTE | 2022-03-10 09:43 | NUR ---
[facility] WORKER JOE HERE TO EVALUATE PT FOR SERVICES.
--- NOTE | 2022-03-10 09:45 | NUR ---
Attempted to see pt, pt very drowsy and unable to be awakened. Will return later.
--- NOTE | 2022-03-10 10:06 | NUR ---
ASSESSMENT DONE, BP 72/53 (58) HR 81. PT VERY DROWSY, ABLE TO FOLLOW COMMANDS, SLOW RESPONSE, A/O TO SELF ONLY. URINE OUTPUT [address] CANTRELL NOTIFIED OF BP AND URINE OUTPUT, AWAITING ORDERS FOR FLUIDS, WILL ALSO ENCOURAGE PO INTAKE. PT SITTING UP IN BED WITH BED ALARM ON AND CALL LIGHT IN REACH.
--- NOTE | 2022-03-10 13:32 | NUR ---
PT UP IN CHAIR. VITALS AND I/O DOCUMANTED. PT HAS NO OTHER NEEDS AT THIS TIME. CALL LIGHT WITHIN REACH.
--- NOTE | 2022-03-10 13:40 | NUR ---
PT. CALLING OUT. THIS NURSE AND STUDENT CHECKED PT. ATTEMPTED TO ASSIST PT. WITH AMBULATING TO THE BED FROM CHAIR. PT. UNABLE TO FOLLOW COMMANDS AND YELLED HE WANTED TO SIT DOWN ONCE STANDING. PT. ASKS FOR HELP TO SLEEP. GIVEN A WARM BLANKET AND ASSISTED WITH REPOSITIONING. LEFT RESTING WITH ALARM ON AND CURTAIN OPEN.
--- NOTE | 2022-03-10 14:15 | NUR ---
IN ROOM TO CHECK ON PT WHO WAS CALLING OUT REPEATEDLY, PER RN BIJAL PT HAD BEEN CALLING OUT PERIODICALLY OVER THE LAST 15-20 MINUTES TO TRY TO GET "HELP GOING TO SLEEP". ATTEMPTED TO MOVE PT TO BED FROM ARMCHAIR, PT WOULD STAND, THEN SIT QUICKLY X3 ATTEMPTS. PT NOTED TO BE SLURRING SOME WORDS WITH QUESTIONABLE LEFT FACIAL DROOP. PT IS DIFFICULT TO ASSESS DUE TO CURRENT BASELINE STATUS. CHARGE NURSE ALICE CALLED IN FOR ADDITIONAL ASSESSMENT, PT ANSWERING QUESTIONS INAPPROPRIATELY SUCH REPLYING "I DON'T KNOW WHAT TIME IT IS ARRON LOPEZ..." AND SLURRING TO END OF PHRASES WHEN ASKED TO SMILE. CODE STROKE CALLED, PT MOVED TO BED VIA AGNES AND TAKEN TO CT. LAST KNOWN WELL BETWEEN 1340 AND 1400.
--- NOTE | 2022-03-10 14:21 | NUR ---
Notified by staff they believe pt has had another stroke, he has a facial droop and slurred speach. [facility] to [facility] manager art. Let her know we are cont. to attempt to place this pt as we do not feel it is a safe discharge. OT attempted to completed SLUM test today and was not awaken enough to complete, he could not answer any of the question.
--- NOTE | 2022-03-10 14:40 | NUR ---
PT BACK FROM CT, TELESTROKE AIRCREWMAN AT FOOT OF BED. PT CONTINUES TO BE DIFFICULT TO ASSESS D/T BASELINE VISUAL, COGNITIVE DEFECITS. RIGHT LEG DROPS TO BED IMMEDIATELY, NO RESPONSE TO VISUAL THREAT BILATERALLY. DR CANTRELL PRESENT FOR EXAM, AWAITING FURTHER DETERMINATION AT THIS TIME.
--- NOTE | 2022-03-10 17:42 | NUR ---
PT COMPLAINING OF HEADACHE /10 "SINCE 10 THIS MORNING". PT RUBBING AT TOP OF HEAD AND ABOVE EYES. PO TYLENOL REFUSED AFTER HE ALREADFY HAD IT IN HIS MOUTH, PT STATES TYLNEOL NEVER WORKS AND IS REQUESTING NORCO. PO NORCO GIVEN, OFFERED DINNER WHICH HE SAYS HE MAY TRY LATER. PT LEFT RESTING IN BED INCLINED SINGING ALONG WITH [employer] MUSIC CHANNEL. NO SPEECH IMPAIRMENT AT THIS TIME. CALL LIGHT IN REACH.
--- NOTE | 2022-03-10 18:00 | NUR ---
PT SITTING UP EATING DINNER, PT ABLE TO EAT A PUDDING CUP ON HIS OWN AFTER 10 MINUTES OF ATTEMPTING TO IDENTIFY UTENSILS, TURNING THEM OVER AND OVER AND ASKING WHERE THEY TRAY IS AND OTHER ITEMS HE WAS ALREADY TOUCHING. ASSISTED PT WITH EATING THE REMAINDER OF HIS DINNER. SHEETS AND GOWN CHANGED, FACE WASHED. BRIANNA APPIAH NOTED PT TO HAVE INCREASED VISUAL DEFECIT FROM LAST WEEK. PT STATES HE CAN'T SEE ANTHING, ONLY LIGHT AND DARK. PT UNABLE TO IDENTIFY ANYTHING VISUALLY ON REQUEST. PT LEFT TO REST IN BED LISTENING TO MUSIC WITH CALL LIGHT IN HAND. CONTINUES TO INDICATE HEADACHE VIA OCCASIONAL MOANING AND RAISING HAND TO HEAD REPEATEDLY.
--- NOTE | 2022-03-10 19:05 | NUR ---
report from charles rn, pt calls out Nurse - c/o headache and cant see. speech is intact - knows he is in [facility] - confused on event, time, and repeats questions frequently after re orientation. face is equal at this time, waiting for [address] scan. ns at 100 left ac - occludes easily as pt is forgetting and bending arm to hold his head. bed alarm on, call light in reach and pt visible from rn station.
--- NOTE | 2022-03-10 20:25 | NUR ---
ASSISTED PT TO VOID 50 ML DARK URINE IN URINAL - HE IS HAPPILY SINING TO THIS RN ALONG WITH THE TV.
--- NOTE | 2022-03-10 20:30 | NUR ---
THIS RN TRANSF PT MAX ASSIST SLOWLY PIVOT TRSF FROM BED TO TO ACCOMPANY PT TO CT SCAN. PT THEN TRSF FROM MAX ASSIST PIVOT TRSF TO CT SCAN TABLE, AND BACK. RN THEN TRSF PT BACK TO BED FROM USING PIVOT TRSF AND COACHING SLOWLY BACK TO BED, ALARM ON, CALL LIGHT IN REACH - IV FUSING - DR CANTRELL AWARE OF SCAN COMPLETE. PT PAINFUL WITH MOVEMENT - NERVOUS AND ANXIOUS WITH NEW VOICES HE CAN NOT SEE AND HE HAS A HARD TIME UNDERSTANIND COMMANDS - WITH SLOW REASURANCE AND LETTING HIM REACH AND FEEL THE DIRECTION HE IS GOING HE DOES WELL - HE RESISITS IF HE IS RUSHED OR PUSHED HE IS FEARFUL OF FALLING AND UNKNOWN. - RETURNED TO BED 2104 - PT LISTINING TO [employer] MUSIC AND SINGING ALONG APPROPRIATLY. TELLS THIS RN WHO THE SINGERS ARE CORRECTLY - COMPLAINS OF HEADACHE AND ASKS FOR 2 NORCO TO SLEEP - CONTINUEUOUSLY - EDUCATED THAT HE IS ONLY ALLOWED 1 AND IT WAS ALREADY GIVEN.
--- NOTE | 2022-03-10 21:53 | NUR ---
DR CANTRELL AWARE THAT MOST RECENT CT RESULTS ARE AVAILABLE AND REVIEWING RESULTS AT THIS TIME AT RN STATION WITH PRIMARY RN YOBANY.
--- NOTE | 2022-03-10 21:58 | NUR ---
Rn able to contact nehemiah Hong via phone - update given and then dr. curry spoke with rafael and update him on new stroke.
--- NOTE | 2022-03-10 23:21 | NUR ---
PO NORCO GIVEN PER PT REQUEST FOR HEADACHE.
--- NOTE | 2022-03-11 00:30 | NUR ---
rn recived advance directive poa from rafael betancur via email - placed on chart and is expecting it. it reads he wants to be comfortable and naturally. rafael may make decisions for sharlene.
--- NOTE | 2022-03-11 00:41 | NUR ---
pt pulled iv out of left ac - picking at things and confused - agrees to hold still for new iv start but swings and pulls and swears with 2 rns attempting to start iv x 2 trys - unsafe to establish new site with pt who is uncooperative. call to
--- NOTE | 2022-03-11 02:09 | NUR ---
pt resting quietly in bed.
--- NOTE | 2022-03-11 05:01 | NUR ---
pt resting soundly with eyes closed, resp rate reg. visible from rn station. bed alarm on and call light in reach.
--- NOTE | 2022-03-11 06:53 | NUR ---
THIS RN TOOK VITALS AND RECORDED I/O'S. PT SINGS TO MUSIC KNOWS WORDS AND ARTIST - NOT ABLE TO SEE TV OR ANY OBJECTS. KEEPS ASKING IF I SOLD 60 OR 70 PAIR OF COWS, HE IS CONFUSED, YET KNOWS WE ARE IN [place] P[place] WHEN ASKED. DOES NOT KNOW WHY, DOES NOT KNOW WHY HE CAN NOT SEE. INC OF URINE AND VOID 100 ML DARK YELLOW URINE WITH RN, ATTENDS CHANGED - SKIN INTACT - CLEANED SMEAR OF BROWN STOOL. WARM BLANKET GIVEN, FRESH WATER AND CLEANED ROOM. FACE EQUAL AND STRENGTH EQUAL - CAN LIFT BOTH LEGS OFF THE BED, STILL COMPLAINS OF HEADACHE. SPEECH WNL - MOSTLY KEEPS EYES CLOSED, DOES NOT TRACK WELL - REAPEATEDLY TELLS ME THAT HIS VITALS WERE GOOD LAST NIGHT, RN RE ORIENTS AND REASSURES. CALL LIGHT AND BED ALARM ON AND WITHIN REACH AND VEIW OF RN STATION.
--- NOTE | 2022-03-11 07:50 | NUR ---
Report received, care resumed. Pt resting in bed on back with eyes closed, resp even and unlabored.
--- NOTE | 2022-03-11 09:40 | NUR ---
ASSESSMENT DONE, MORNING MEDS GIVEN. PT RESTING IN BED WITH EYES CLOSED. A/O X 0. STATES OWN NAME IS "ONESIMO MATHEWS" REPEATEDLY AND DENIES REAL NAME. PT AGREEABLE, COOPERATIVE. COMPLAINS OF BEING COLD. HEELS REDDEDNED, NONBLANCHABLE BILATERALLY. FLOATED ON PILLOW, WARM BLANKET APPLIED. PT LISTENING TO COUNTRY MUSIC AND SINING ALONG. NO SPEECH IMPAIREMENT, VISION REMAINS ABSENT.
--- NOTE | 2022-03-11 11:48 | NUR ---
STARTED IV TO RIGHT WRIST USING LIDOCAINE INJECTION. PATIENT TOLERATED FAIRLY WELL AND ALLOWED ME TO SUCCESSFULLY INSERT NEEDLE, PROVIDED REST BREAKS WITH PAIN AND REASSURED WITH GENTLE STEP BY STEP. PATIENT ABLE TO CALM AND ALLOW NURSE TO CONTINUE WITH INTERVENTION.
--- NOTE | 2022-03-11 14:24 | NUR ---
PATIENT REMAINS CONFUSED. CURRENT DIET ORDER IS REGULAR. THIS WEEK HE HAS NOT BEEN EATING BREAKFAST VERY WELL BUT EATS OTHER MEALS 50-90%. AWAITING PLACEMENT WHICH IS WHY HE IS STILL HERE. NO INTERVENTION NEEDED AT THIS TIME. WILL CONTINUE TO SEND BALANCED MEALS.
--- NOTE | 2022-03-11 14:29 | NUR ---
ATTEMPTED TO GIVE PT A BEDBATH WITH STEPHANIE NETTLES. PT IS ADAMANTLY AGAINST IT AT THIS TIME. PT CURRENTLY LAYING ON BACK IN BED LISTENING TO MUSIC. PT CONFUSED ABOUT TIME OF DAY, THINKS IT IS 2 A.M. NOT P.M. PT REORIENTED, REASSURED. PT AWAITING VISIT FROM HIS DOG AND FRIEND DESTINY. BED ALARM ON, CALL LIGHT IN REACH.
--- NOTE | 2022-03-11 15:35 | NUR ---
PATIENT NEEDS ASSISTANCE EATING. HOG SCALDER'S ARE HELPING HIM EAT DUE TO POOR EYESIGHT. HE EATS WELL WITH THIS ASSISTANCE.
--- NOTE | 2022-03-11 15:45 | NUR ---
PT NEEDING ASSISTANCE FROM STAFF TO EAT DINNER D/T VISUAL DEFECIT AND CONFUSION. PT ATE 100 % OF MEAL WITH HELP THOUGH. NO ADDITIONAL NEEDS AT THIS TIME. CALL LIGHT IN REACH, BED ALARM ON.
--- NOTE | 2022-03-11 16:30 | NUR ---
PT FRIEND DESTINY HERE WITH PT'S DOG, TOMAS, TO VISIT. PT VERY GLAD TO HAVE THEM HERE. SMALL SKIN TEAR ON LEFT ELBOW NOW FROM DOG'S NAILS WHEN SHE JUMPED UP TO LAY WITH HIM ON THE BED. RESP EVEN AND UNLABORED, PT RELAXED, CONTINUES TO BE CONFUSED, PROVIDING WHAT DESTINY SAYS IS IS 'ALTER EGO' NAME OF "ONESIMO MATHEWS".
--- NOTE | 2022-03-11 18:49 | NUR ---
PT RESTING IN BED LISTENING TO MUSIC. VSS. PT A/O X 2. TOTAL URINE OUTPUT LOW, MD AWARE. ORAL INTAKE IMPROVING. PT CALLS OUT FREQUENTLY FOR VARIOUS NEEDS. REASSURANCE GIVEN. PT DENIES PAIN AT THIS TIME BUT REACHES UP TO TOUCH HEAD FREQUENTLY, ALREADY GIVEN PRN NORCO.
--- NOTE | 2022-03-11 20:30 | NUR ---
PATIENT PICKING AT SCABS ON HEAD. PROVIDED FULL BODY ASSESMENT. PATIENT ABLE TO FOLLOW 1 STEP COMMANDS. PATIENT ALERT TO SELF, HOWEVER UNAWARE OF LOCATION AND TIME. NOTED PATIENT PICKING AT AIR, STATES " GET THIS PULLED OFF OF HERE" ATTEMPTED TO REASSURE PATIENT AND ASSIST TO GET COMFORTABLE. ATTEMPTED TO TALK TO PATIENT ABOUT DOG THAT VISITED FROM DAY SHIFT. PATIENT UNABLE TO RECALL PET'S NAME. PATIENT THEN APPEARED TO HAVE INCREASED AGITATION, THEN STARTED VERBALIZING FRUSTRATION WITH PROFANITY AND TRYING TO GET OUT OF BED. STAFF INTO ROOM TO HELP KEEP PATIENT IN BED.
--- NOTE | 2022-03-11 21:30 | NUR ---
pt HAS BEEN AGITATED AND RESTLESS IN BED, REQUIRING MULTIPLE STAFF MEMBERS AND SECURITY IN ROOM. DR CANTRELL AWARE AND HAS BEEN IN pt ROOM WELL. CLARIFIED ORDERS WITH DR CANTRELL REGARDING MORPHINE. PER DR CANTRELL, VERBALLY READ BACK pt WAS GIVEN A X1 DOSE 4MG IV MORPHINE-SEE EMAR AT 2047. IN ADDITION, pt CAN HAVE THE ORDERED PRN MORPHINE 1-2MG [id number] ORDERED BY DR CANTRELL. WILL CONTINUE TO MONITOR.
--- NOTE | 2022-03-11 21:30 | NUR ---
CONTINUES TO YELL OUT AND TRY TO GET OUT OF BED, PATIENT THEN STARTED COMPLAINING OF SHARP SUBSTERNAL CHEST PAIN, AND APPEARED ANXIOUS CONTINUING TO THRASH IN BED. NOTIFIED DR. CANTRELL OF OF CHEST PAIN, STAT ORDER FOR EKG. THAT DR. CANTRELL VERBALIZED WAS NO CHANGE TO PREVIOUS EKGS, DR. CANTRELL AT BEDSIDE. NEW ORDER TO ADMINISTER 4MG IV MORPHINE. ADMINISTERED AT BEDSIDE THEN PER DR. CANTRELL ADMINISTERED ALL OTHER HS MEDICATIONS ALONG WITH TRAZADONE AND SERAQUAL PRN, PATIENT ABLE TO SWALLOW WITH PUDDING. IV MORPHINE DID NOT APPEAR TO BE EFFECTIVE, PATIENT THEN COMPLAINED OF SOB, BUT WOULD NOT ALLOW OXYGEN TO PLACED. HAVING PATIENT COUNT SLOWLY TO 10 SEEMED TO DECREASE ANXIETY FOR MOMENTS THEN PATIENT WOULD ESCALATE AND ATTEMPT TO GET OUT OF BED. DIMMED LIGHTS AND ALLOWED PATIENT TO REMOVE GOWN, PROVIDED MIMI BEAR FOR COMFORT AND COUNTRY MUSIC. PATIENT WOULD FOR A FEW SECONDS BE ABLE TO RESPOND APPROPRIATELY THEN WOULD START YELLING OUT AGAIN AND BECOME RESTLESS. OCEANOGRAPHER ASSISTANT AT BEDSIDE PROVIDING COMFORT. FAN WAS PROVIDED, ATTEMPTING DIFFERENT TO CALM PATIENT.
--- NOTE | 2022-03-11 22:15 | NUR ---
PATIENT THRASHING IN BED, APPEARS AGITATED AND MAKING FISTS AT STAFF. PATIENT YELLING " HELP ME, I AM FUCKED, HELP ME" RN OPERATING ROOM AND CHARGE NURSE IN ROOM. NEW ORDER TO ADMINISTER IV ATIVAN 2MG ONCE. PULLED FROM [facility] UNDER OLD ORDER, DR. CANTRELL AWARE. ADMINISTERED AT BEDSIDE WITH ELEN REED, ATIVAN EFFECTIVE, NOW RESTING WITH EYES CLOSED. RR 18, BREATHING EVEN. LIGHTS DIM. BED ALARM ON, ABLE TO MONITOR FROM NURSES STATION.
--- NOTE | 2022-03-11 23:26 | NUR ---
INTO ROOM, PATIENT RESTING MOVES AND GROANS WITH LIGHT PHYSICAL STIMULI. OXYGEN SATURATION 88% ON RA, TITRATED PATIENT TO 1LNC, APPEARS TO BE TOLERATING 98%, RR 18 BREATHING EASY WITH EQUAL CHEST RISE. PROVIDED WARM BLANKET, DOOR OPEN FOR EASY OBSERVATION FROM NURSES STATION. PULSE OX ON. BP AND PULSE WNL.
--- NOTE | 2022-03-12 04:05 | NUR ---
PATIENT RESTING, APPEARS CALM. WILL SHIFT LEGS AND RAISE ARMS, BUT APPEARS TO BE RESTING SOUNDLY. OXYGEN SATURATION 98% 0.5L NC. CURTAIN AND DOOR OPEN TO NURSES STATION FOR CLOSE OBSERVATION, BED ALARM ON.
--- NOTE | 2022-03-12 04:16 | NUR ---
PATIENT APPEARED ANXIOUS AND RESTLESS AT BEGINNING OF SHIFT, REPORTED CHEST PAIN; EKG DONE, NO CHANGE NOTED FROM LAST EKG THAT IS IN THE CHART. ADMINISTERED ONE TIME ORDER 4MG IV MORPHINE, NOT EFFECTIVE. PATIENT CONTINUED APPEAR AGITATED, SCREAMING OUT HELP, AND COMPLAINTS OF SOB. WOULD NOT ALLOW OXYGEN TO BE PUT ON. DR. CANTRELL AT BEDSIDE THROUGHOUT EVENT, HS MEDICATIONS ADMINISTERED ALONG WITH PRN SERAQUIL, TRAZADONE, AND NORCO. INCREASED AGITATION, AND ANXIETY. PATIENT CRYING AT TIMES, COUNTING TO TEN AND SLOWING BREATHING HELPED FOR MOMENTS, PATIENT GRABBING AT THINGS IN AIR. 2MG IV ATIVAN ADMINSTERED- ONE TIME ORDER, EFFECTIVE. PATIENT THEN RESTED WELL THROUGHOUT REST OF NIGHT SOUNDLY, OXYGEN SATURATION 98% ON 0.5L NC. UPDATED SON AMEYA ON PHONE.
--- NOTE | 2022-03-12 07:21 | NUR ---
dr curry provided with pt update since pt relaxed, aware and okay with skipping am vs before shift change.
--- NOTE | 2022-03-12 08:00 | NUR ---
REPORT RECEIVED, CARE RESUMED. PT RESTING IN BED WITH EYES CLOSED, RESP EVEN AND UNLABORED. LIGHTS OUT, DOOR OPEN FOR CLOSE OBSERVATON.
--- NOTE | 2022-03-12 09:55 | NUR ---
Morning meds given, assessment done. Pt very sleepy this morning. Bedbath and sheets changed after incontinent void. Pt also used urinal for small void afterward. Pt complains when moved or touched, still hypersensitive to pain, but less so than yesterday.
--- NOTE | 2022-03-12 11:04 | NUR ---
FED PATIENT HIS BREAKFAST. STRAIGHTEN UP HIS ROOM. PATIENT IS BACK SLEEPING.
--- NOTE | 2022-03-12 11:35 | EKG ---
[facility] [address] [place] [address] Signed Normal sinus rhythm Left posterior fascicular block Inferior infarct , age undetermined ST \T\ T wave abnormality, consider anterolateral ischemia Abnormal ECG When compared with ECG of 25-FEB-2022 10:52, Left posterior fascicular block is now present ST more depressed in Anterior leads T wave inversion no longer evident in Inferior leads T wave inversion now evident in Anterolateral leads Confirmed by VANITA CANTRELL MD ([id number]) on 03/12/2022 11:35:40 AM Electronically Signed By: VANITA CANTRELL MD 03/12/22 1135 PATIENT NAME: MOSHE ROBERTS Electrocardiogram DATE OF : 41 PHYSICIAN: VANITA CANTRELL MD REPORT #: [id number] REPORT IS CONFIDENTIAL AND NOT TO BE RELEASED WITHOUT AUTHORIZATION
--- NOTE | 2022-03-12 15:20 | NUR ---
IN ROOM TO DO ASSESSMENT. DEPENDS CHANGED FOR INCONTINENT VOID, PT ALSO USED URINAL IMMEDIATELY AFTERWARD FOR SMALL VOID. PT GIVEN FRESH WARM BLANKETS AND NEW CLEAN MIMI BEAR. PT MINIMALLY ABLE TO ASSIST WIHT TURNING SELF, SAYS "OW " WHEN TURNED TO SIDES WELL WHEN [place] AREA IS WIPED CLEAN. REASSURANCE GIVEN. PT LEFT TO REST LAYING ON BACK WITH MUSIC PLAYING.
--- NOTE | 2022-03-12 18:15 | NUR ---
IN ROOM TO HELP PT USE URINAL FOR SMALL VOID. PT FRIEND DESTINY AND DOG TOMAS LEAVING AT THIS TIME. PT LESS SLEEPY THIS EVENING. LEFT TO REST LAYING ON BACK LISTENING TO MUSIC WITH MIMI BEARS. NO FURTHER NEEDS AT THIS TIME.
--- NOTE | 2022-03-12 19:32 | NUR ---
NURSE HANDOFF FROM RAHEEM RN, PATIENT APPEARS TO BE RESTING WITH EYES CLOSED. MUSIC ON IN ROOM. NO NEEDS AT THIS TIME. BED ALARM ON.
--- NOTE | 2022-03-12 23:15 | NUR ---
INTO PATIENT ROOM, FULL BODY ASSESMENT DONE. PATIENT ALERT TO SELF, REORIENTED TO TIME AND PLACE. PATIENT ANSWERING QUESTIONS PLEASANTLY AND APPEARS CALM. ATTEMPTED TO USE URINAL WITH NO SUCCESS, PATIENT INCONTINENT OF URINE. CHANGED ATTEND AND LINEN. HS MEDICATIONS ADMINISTERED WITH APPLESAUCE PATIENT ABLE TO FOLLOW 1-STEP COMMANDS. PATIENT STARTED GRIMACING AND PUTTING HAND ON FOREHEAD CRYING OUT IN PAIN, STATED " I HURT SO BAD, PLEASE HELP ME" ADMINISTERED PRN NORCO. BP 185/78 MAP 107 PULSE OF 83, PATIENT APPEARS TO BE HAVING INCREASED RESTLESSNESS MOVING LEGS BACK AND FORTH IN BED WHILE HOLDING FOREHEAD, PATIENT STATES " ALL THE PAIN IS RIGHT HERE" PATIENT PLACING HAND ON FOREHEAD. CALL TO DR. REYES, REPORTED FINDINGS. DISCUSSED PAIN MEDICATION OPTION AND HOW THE MORPHINE WAS NOT EFFECTIVE THE NIGHT BEFORE FOR CHEST PAIN, DR. REYES THEN VERBALIZED THAT PATIENT NORMALLY TAKES 1-2 NORCO AT A TIME AT HOME, THEN TO CHANGE THE NORCO PO Q4HR PRN 1-2 TABS, AND ADMINISTER A SECOND TAB NOW.
--- NOTE | 2022-03-12 23:53 | NUR ---
PATIENT APPEARS TO BE RESTING WITH EYES CLOSED, APPEARS CALM. SECOND TAB OF NORCO APPEARS EFFECTIVE WITH PAIN RELIEF. BED ALARM ON, CURTAIN OPEN FOR FREQUENT INTERMITTENT MONITORING.
--- NOTE | 2022-03-13 02:45 | NUR ---
in to check on pt, pt dribbled on quoc pad, void with urinal, no further needs
--- NOTE | 2022-03-13 05:25 | NUR ---
PATIENT CALLING OUT, INTO ROOM PATIENT APPEARS AGITATED AND RESTLESS. STATES " MY HEAD HURTS AND I NEED TO PEE" PROVIDED URINAL, PATIENT ALSO INCONTINENT. CHANGED ATTEND. PATIENT ABLE TO FOLLOW DIRECTION AND TURN. ADMINISTERED 2 TABS NORCO PER MAR, FACE SCALE 6/10. PROVIDED ENSURE MIXED WITH COFFEE. PATIENT STATED " THIS IS SO GOOD" PATIENT DRANK 300 ML. BED ALARM ON. NO OTHER NEEDS AT THIS TIME.
--- NOTE | 2022-03-13 05:27 | NUR ---
PATIENT HAD FACE SCALE 9/10 PAIN, REPORTED HEAD HURTING. BP ELEVATED. DR. REYES NOTIFIED. NEW ORDERS FOR NORCO, 2 TABS OF NORCO PO ADMINISTERED. PATIENT THEN SLEPT WELL REST OF NIGHT, CALLING FOR URINAL, BUT ALSO INCONTINENT AT TIMES. APPEARS ALERT TO SELF, CALM WHEN PAIN CONTROLLED, AND ANSWERING QUESTIONS APPROPRIATELY. BED ALARM ON. PROVIDED ENSURE MIXED WITH COFFEE, AND WARM BLANKETS, MEDICATED FOR PAIN THIS MORNING PER JUL.
--- NOTE | 2022-03-13 07:45 | NUR ---
PATIENT IN CHAIR FOR MEAL. AM CARE COMPLETED AND HAS NO OTHER NEEDS AT THIS TIME. CALL LIGHT WITHIN REACH.
--- NOTE | 2022-03-13 07:56 | NUR ---
PT RESTING SOUNDLY EYES CLOSED AT TIME OF SHIFT REPORT. BED ALARM IS SET CURTAINS OPEN TO RN STATION.
--- NOTE | 2022-03-13 08:30 | NUR ---
RT COLLECTED RAPID COVID 19 SWAB AT THIS TIME WITH NO COMPLICATIONS.
--- NOTE | 2022-03-13 09:55 | NUR ---
PT UP TO THE CHAIR STAFF ASSIST EATS 90% OF MORNING MEAL. FLUIDS ENCOURAGED. CHAIR ALARM IS SET.
--- NOTE | 2022-03-13 10:25 | NUR ---
PATIENT BACK IN BED AFTER MEAL. PT HAS NO OTHER NEEDS AT THIS TIME.CALL LIGHT WITHIN REACH.
--- NOTE | 2022-03-13 10:40 | NUR ---
PT IN CHAIR C/O BOTTOM HURTING. RETURNED TO RESTING IN BED BARRIER CREAM APPLIED. BOTTOM RED BUT BLANCHABLE. PT RESTING SOUNDLY AT THIS TIME
--- NOTE | 2022-03-13 13:13 | NUR ---
STAFF ASSIST WITH NOON MEAL PT REMAINS IN BED FOR NOW.
--- NOTE | 2022-03-13 13:54 | NUR ---
PATIENT IN BED AFTER MEAL. VITALS AND I/O'S COMPLETED. CALL LIGHT WITHIN REACH.
--- NOTE | 2022-03-13 15:16 | NUR ---
ASSISTED PT TO WORK WITH P/T HE IS ABLE TO AMBULATE BACK TO THE CHAIR. DR REYES IN TO SEE HIM FOR ASSESSMENT. UNDERGARMENTS CHANGED AND PERICARE PROVIDED. INNER BUTTOCKS RED AND SORE, BARRIER CREAM APPLIED. PT SEATED ON A PILLOW IN CHAIR.
--- NOTE | 2022-03-13 18:31 | NUR ---
PATIENT IN CHAIR AFTER DINNER PER REQUEST. VITALS AND I/O'S COMPLETED. CHAIR ALARM ON, AND CALL LIGHT IS WITHIN REACH.
--- NOTE | 2022-03-13 19:55 | NUR ---
PATIENT STARTING TO GET UP OUT OF RECLINER, APPEARS RESTLESS. STATES " I NEED TO PEE" ASSISTED WITH URINAL. VOIDED 150 OF CONCENTRATED YELLOW URINE WITH SATURATED BRIEF. PATIENT APPEARS ANXIOUS COMPLAINING OF PAIN, RUBBING HEAD AND APPEARS SENSITIVE WITH ANY TOUCH TO SKIN PATIENT GRIMACES AND MOANS IN PAIN YELLING OUT. ADMINISTERED HS MEDICATIONS, EXCEPT FOR LOPRESSOR PO AND TWO TABS NORCO PO. PROVIDED SNACK AND WARM BLANKET. CHAIR ALARM ON. WILL WAIT FOR MEDICATIONS TO TAKE EFFECT BEFORE TRANSFERING BACK TO BED. UPDATED PATIENT ON PLAN OF CARE, APPEARS ALERT TO SELF. WILL PROVIDED FREQUENT CHECKS, PATIENT ACROSS FROM NURSES STATION, CURTAIN OPEN.
--- NOTE | 2022-03-13 21:08 | NUR ---
PATIENT CONTINUING TO CALL OUT, AFTER SEVERAL ATTEMPTS TO REASSURE PATIENT THAT MEDICATION WAS ADMINISTERED FOR HEAD PAIN AND CARE TEAM AWAITING TIME FOR PO MEDICATIONS TO BECOME EFFECTIVE, IT WAS DECIDED THAT THE PATIENT MAY BE ABLE TO RELAX BETTER IF TRANSFERED BACK TO BED FROM RECLINER. ATTEMPTED TO PROVIDED 2 PERSON ASSIST, HOWEVER PATIENT APPEARS ANXIOUS AND WILL SIT DOWN WITHOUT WARNING. PROVIDED SIMPLE CLEAR DIRECTION IN A CALM THERAPEUTIC TONE, PATIENT ABLE TO STAND WITH ONE STAFF AND THEN PIVOT OVER TO BED, TOLERATING ACTIVITY POORLY SECONDARY TO THE INCREASED APPEARANCE OF ANXIETY WITH THE FEAR OF FALLING AND BEING BLIND. WHEN STANDING HE LEANS BACKWARDS, AND SWAYS BACK AND FORTH WHEN STANDING WITH WALKER, THEN WILL PLOP UNCONTROLLED BACK INTO THE RECLINER INCREASING FALL RISK. ONCE BACK IN BED PATIENT CONTINUES TO HOLD HIS HEAD AND MOAN, STATING " WHY CAN'T YOU STOP THIS PAIN IN MY HEAD" PROVIDE REASSURANCE, REORIENTED TO ROOM AND POC, PROVIDED WARM BLANKETS, DIMMED LIGHTS. PLAN TO ATTEMPT VITAL SIGNS ONCE PATIENT APPEARS CALM AND SETTLED. CURTAIN OPEN PROVIDING VISUALIZATION FROM NURSING STATION, PATIENT CALLS OUT AND STAFF THEN RESPONDS.
--- NOTE | 2022-03-13 22:20 | NUR ---
PATIENT HAVING INCREASED AGITATION, THRASHING IN BED. STAFF AT BEDSIDE PROVIDED THERAPEUTIC COMMUNICATION, PATIENT CAN BE CONSOLED FOR SECONDS BEFORE YELLING OUT, " HELP ME" " COME ON, GOD DAMN SON OF A BITCH, HELP ME" PATIENT APPEARS AGITATED. CALL TO DR. REYES REPORTED FINDINGS AND MADE AWARE OF SIMALAR EVENT THAT HAPPEND TWO NIGHTS AGO, AND THAT ATIVAN IV WAS EFFECTIVE. DR. REYES VERBALIZED HE WOULD BE PUTTING IN ORDERS. NOTED ORDERS FOR HALDOL 0.5MG TO 1MG IV Q4HRS PRN
--- NOTE | 2022-03-13 22:46 | NUR ---
PATIENT CONTINUES TO THRASH BACK AND FORTH IN BED SITTING UP AND LAYING BACK. APPEARS RESTLESS, CONTINUES TO TRY TO GET OUT OF BED. CALLED PATIENT SON AMEYA AND ASKED IF HE WOULD TALK WITH HIM ON THE PHONE, EXPLAINING THE SITUATION. AMEYA AGREED WHOLE-HEARTEDLY. TALKING ON THE PHONE HAS SOME CALMING EFFECT, BUT HE CONTINUES TO YELL OUT HELP ME AND SLAPS HIS LEGS SITTING UP AND RESTING BACK WHILE HOLDING THE PHONE TO HIS EAR, IF ANYTHING THIS ACTIVITY IS CAUSING DISTRACTION. THIS NURSE AT THE BEDSIDE PROVIDING 1:1 FOR PATIENT SAFETY. ATTEMPTED BP READING 183/117, HOWEVER PATIENT UNABLE TO LAY STILL AT THIS TIME, PULSE 89, RR 22, OXYGEN SATURATION 98% RA
--- NOTE | 2022-03-13 23:12 | NUR ---
CALL TO DR. REYES TO REPORT IV HALDOL 1MG DOES NOT APPEAR TO BE EFFECTIVE, PATIENT CONTINUES TO THRASH. DR. REYES VERBALIZED WOULD BE ADJUSTING MEDICATION ORDERS.
--- NOTE | 2022-03-13 23:28 | NUR ---
ADMINISTERED 0.5MG ATIVAN IV, APPEARS TO BE EFFECTIVE PATIENT RESTING BACK IN BED, LEGS APPEAR RELAXED. AFTER PATIENT CLOSES EYES THEN OPENS THEM STATING " I HAVE TO PEE" OR " I NEED TO GO DO SOMETHING", PATIENT IS NOT REDIRECTABLE, BUT APPEARS LESS AGITATED/ RESTLESS FIDGETING WITH BLANKETS, BREATHING EVEN AND REGULAR, APPEARING DROWSY BUT LIKE A CHILD WHO IS FIGHTING THEIR NAP. WARM BLANKETS PROVIDED, PROVIDED SOOTHING THERAPEUTIC REASSURANCE AT BEDSIDE. NURSE 1:1 FOR SAFETY.
--- NOTE | 2022-03-14 01:46 | NUR ---
PT CONTINUES 1:1 WITH CROWN ATTACHER PRIMARY RN AT LUNCH. PT HAS NOT SLEPT SINCE BEING MEDICATED. HE IS RESTLESS TOSSING AND TURNING, NEEDS TO GET OUT OF HERE, WHEN REMINDED HIS LEGS DONT WORK WELL, AND HOW GETTING INTO THE BED TONIGHT WENT HE SAYS I KNOW. OFF AND ON HE SAYS HE IS SCARED, COMPLAINS OF BEING COLD AFTER REMOVING HIS BLANKETS. WILL ALLOW BACK ON WHEN THIS RN WOULD SAY DID YOU WANT TO BE COLD. SUGGESTED SLEEP, TOLD HIM HE LOOKED TIRED, HE SAID HE WAS. WOULD CLOSE EYES FOR BRIEF SECOND, ONLY TO BOLT UP IN BED, SAYING HE HAD TO GO. HE WOULD SWING LEGS OVER THE SIDE RAIL BUT WOULD PUT BACK TO BED WHEN REMINDED ABOUT HOW PAINFUL IT IS TO HIT HIS LEGS ON THE SIDE RAIL. WAS APPROPRIATE WHEN BEING REDIRECTED BUT UNSAFE TO BE ALONE. STATES HIS HEADACHE IS BETTER, DENIES DISCOMFORT OVER ALL. WOULD SAY HE NEEDED TO PEE. ATTEMPTED TO HAVE THE URINAL, HE WOULD DRIBBLE, OR ATTENDS WOULD BE WET WHEN URINAL PLACED. FREQUENTLY WOULD SLIDE HANDS INTO HIS PANTS, REMINDED HIM TO KEEP HANDS OUT AND HE WOULD, BUT FORGET AND DO IT AGAIN.
--- NOTE | 2022-03-14 03:20 | NUR ---
ATTEMPTED MULTIPLE TIMES TO COLLECT VITAL SIGNS, UNABLE TO COLLECT ACCURATE READINGS WITH PATIENT'S AGITATION, NOR DOES THIS NURSE FEEL COMFORTABLE ADMINISTERING PO MEDICATION WITH PATIENT CONFUSION. CHARGE NURSE AGREED. WILL ADDRESS FURTHER IN THE MORNING. PATIENT IS 1:1 NEEDING CONSTANT SUPERVISION. APPEARS TO CLOSE EYES LIKE HE WANTS TO FALL ASLSEEP, BUT THEN IMMEDIATELY BECOMES TRIES TO SIT UP OR VERBALIZE HE NEEDS TO DO SOMETHING. COMPLAINS FREQUENTLY OF URGENCY WITH URINATION THEN ONLY VOIDS SMALL AMOUNTS. BLADDER SCAN WAS <15MLS, LOWER ABDOMEN SOFT. DESPITE THE MEDICATIONS ADMINISTERED, PATIENT HAS NOT BEEN ABLE TO SLEEP THIS SHIFT. CALCULUS TEACHER CURRENTLY IN ROOM PROVIDING 1:1 SITTING AT BEDSIDE PROVIDING CONSTANT REASSURANCE AND DIRECTION TO PATIENT. LIGHTS ARE DIM, WARM BLANKETS HAVE BEEN PROVIDED. DECREASED EXTERNANAL STUMULATION MUCH POSSIBLE PROVIDING NURTURING SLEEPING ENVIRONMENT.
--- NOTE | 2022-03-14 04:10 | NUR ---
PATIENT DID NOT FALLASLEEP SINCE THIS INSPECTOR CASING ONE ON ONE FROM 0030 UNTIL 0315. NOTICED HIS EYES ARE HEAVY. PATIENT IS CONSTANTLY TRYING TO GET OUT OF BED. TAKING OFF HIS BLANKET AND C/O COLD. THIS INSPECTOR CASING PLACED THE BLANKET BUT IT DOES NOT STAY EVEN A MINUTE.
--- NOTE | 2022-03-14 05:34 | NUR ---
0355 IV HALDOL 2MG ADMINISTERED FOR INCREASED AGITATION AND RESTLESSNESS, PATIENT CONTINUING TO ATTEMPT TO GET OUT OF BED WITH INCREASED YELLING OUT, LEGS RESTLESS SHIFTING IN BED, PATIENT SITTING UP AND DOWN, STATE " I DON'T KNOW WHAT IS WRONG WITH ME" 0420 PATIENT CONTINUES TO APPEAR RESTLESS, WILL CLOSE EYES APPEARING DROWSY HANDS UP PICKING THINGS OUT OF THE AIR. REPETIVE BRUSHING MOTION OF BOTTOM LIP LIKE HE IS TAKING A DIP OF SNUFF AND THEN THROWS HIS ARM FORWARD LIKE HE IS THROWING IT ON THE GROUND. 1430 PATIENT REPORTS NEEDING TO HAVE BM, 3 PERSON ASSIST WITH CUEING AND WALKER TO BSC. PATIENT HAS LIMITED BALANCE AND AT TIMES NEEDS TO SIT BACK DOWN AND RESTART THE PROCESS OF TRANSFERING PLOPPING SELF ONTO BED. ONCE ON BSC PATIENT HAD SOFT SMEAR ON SEAT, BUT WAS UNABLE TO SIT STILL ENOUGH TO HAVE THE BM. BACK TO BED DANGLING LEGS CONTINUES TO PICK AT THINGS IN THE AIR AND TRIES TO BEND OVER TO MAINFRAME SOFTWARE DEVELOPER THINGS ON THE FLOOR, THEN KICKS FEET AND USES PROFANITY VERBALIZING HE IS MISSING OBJECTS LIKE ROPE, AND THEN STATING " THERE IT IS, LET ME GET IT". PATIENT WILL ALSO LOOK UP AT THE CEILING AND THEN SWING ARMS IN AIR IF HE HITTING SOMETHING AWAY FROM HIM. 0500 PATIENT LAYING BACK IN BED, CONTINUES TO NEED 1:1, RAEANN AT BEDSIDE PROVIDING CARE. PATIENT CONTINUES TO APPEAR RESTLESS ATTEMPTING TO GET UP AND PICKING AT THINGS IN THE AIR, AND PULLING AT SHEETS, WHILE YELLING OUT "HELP ME".
--- NOTE | 2022-03-14 05:50 | NUR ---
PATIENT DID NOT SLEEP THROUGHOUT NIGHT, HAS BEEN MEDICATED WITH TRAZADONE, AND NORCO, IV HALDOL X2 DOSES, AND ONE TIME ORDER OF IV ATIVAN. WITH SECOND DOSE OF IV HALDOL NOTED PATIENT STARTED PULLING AT THINGS IN THE AIR, GOING THROUGH THE MOTION OF PULLING SNUFF OUT OF HIS MOUT TO THROW ONTO THE GROUND, AND TRYING TO PICK THINGS UP OFF THE GROUND. PATIENT CAN BE REDIRECTED, HOWEVER A 1:1 SITTER IS NEEDED BECAUSE IN MOMENTS PATIENTS IS NEEDED REPEATED REASSURANCE AND ORIENTATION TO ROOM AND PEOPLE WITH HIM. VS WNL THIS MORNING. PATIENT URINE OUTPUT HAS INCREASED WITH LAST VOID AND SEEMED TO HAVE EASIER TIME URINATING, BUT IS FREQUENTLY REQUESTING THE URINAL. HAD PATIENT UP TO BSC 3 PERSON MAX ASSIST WITH WALKER, PATIENT HAD SMEAR THAT WAS SOFT, UNABLE TO STAY SEATED VERY LONG BEFORE TRYING TO GET UP AGAIN DESPITE REMINDING PATIENT OF BEING ON THE BSC. DR. REYES CALLED TWICE DURING SHIFT FOR MEDICATION ORDERS TO ADDRESS AGITATION AND RESTLESSNESS. UNABLE TO GET PATIENT TO TAKE LISINOPRIL, SECONDARY TO NOT BEING ABLE TO GET BLOOD PRESSURE SECONDARY TO AGITATION.
--- NOTE | 2022-03-14 06:40 | NUR ---
PATIENT CONTINUE TO CALL OUT VERBALIZING HE NEEDS TO HAVE A BM, NIO ORDER FOR DULCOLAX SUPPOSITORY. THEN WHILE WAITING FOR SUPPOSITORY TO BE VERIFIED BY PHARMACY, PATIENT ASSISTED TO BSC WITH 2PERSON ASSIST. PATIENT THEN SAT THERE FOR 15 MINUTES WITH STAFF ENCOURAGEMENT AND CUEING, HAD XLARGE SOFT BM, VERY HEAVY. PATIENT THEN HAD DECREASED AGITATION, BACK TO BED WILL REST FOR LONGER PERIODS BEFORE ATTEMPTING TO GET UP. PATIENT THEN SELF PULLED IV OUT OF LEFT WRIST. NOTED ELBOWS BLANACHABLE, APPEAR REDDENED, PLACED ALLEVYN DRESSING EDUARDO, SKIN INTACT.
--- NOTE | 2022-03-14 07:30 | NUR ---
REPORT RECEIVED AT BEDSIDE, PT IS RESTLESS 05/29 STAFF IS PRESENT FOR SAFETY. PT REDIRECTED VERBALLY WHILE CALM ASKED IF HE HAS ANY PAIN HE STATES "NO" ASKED IF HEAD OR BACK HURT HE AGAIN REPLIES "NO, NOT RIGHT NOW"
--- NOTE | 2022-03-14 08:41 | NUR ---
PT CONTINUES TO BE SOMEWHAT RESTLESS ATTEMPTING TO GET UP, UNABLE TO VERBALIZE WHY. 05/29 STAFF PRESENT. PT STATES HE NEEDS TO MOVE HIS BOWELS, 2 PERSON ASSIST TO BSC. PT DOES NOT HAVE BM BUT HE DOES VOID. NAHUN CARE PROVIDED FRESH UNDERGARMENT. ASSISTED BACK TO BED STAFF PRESENT ENCOURAGING FLUIDS AND BREAKFAST.
--- NOTE | 2022-03-14 09:48 | NUR ---
PT CONTINUES TO BE RESTLESS SITS UP ON EDGE OF THE BED INDEPENDANTLY PICKS AROUND AT BEDDING. PT STANDS THEN RETURNS TO SITTING. STAFF 05/29 FOR SAFETY PT STANDS AND SITS AND PICKS THEN RETURNS TO RESTING SUPINE. P/T IN NOW TO WORK WITH HIM. REPORT GIVEN OF THIS DAYS ACTIVITY AND PT RESPONSE TO VERBAL INSTRUCTION. P/T WORKING WITH HIM AT THIS TIME.
--- NOTE | 2022-03-14 12:23 | NUR ---
PT SITTING UP ON EDGE OF BED STAFF PRESENT GIVING DISTRACTION AND CONVERSATION. PT IS MOSTLY COOPERATIVE. NOON MEAL IS SERVED.
--- NOTE | 2022-03-14 14:05 | NUR ---
PT CONTINUES TO BE AWAKE AND RESTLESS STAFF 05/29 FOR SAFETY. UP TO THE CHAIR AT THIS TIME.
--- NOTE | 2022-03-14 15:13 | NUR ---
PT HAS BEEN AWAKE ALL SHIFT 05/29 STAFF PRESENT. PT IN THE CHAIR RESTLESS, HE STANDS, PAUSES, THEN SITS AGAIN. CONTINUES TO STAND THEN RETURN TO SITTING WITH STAFF ENSURING SAFETY. NO C/O PAIN OR HEADACHE. HAS HAD VICODIN 2X THIS SHIFT PREVENTATIVE.
--- NOTE | 2022-03-14 16:14 | NUR ---
CHART REFAXED TO MEKA AT [facility] PER REQUEST.
--- NOTE | 2022-03-14 17:46 | NUR ---
STEPHANIE NETTLES IN ROOM A 1:1 WITH PATIENT. VITALS AND I&O'S CHARTED. PATIENT HAS BEEN VERY RESTLESS ALL DAY. CALL LIGHT IN REACH. STEPHANIE NETTLES IN ROOM.
--- NOTE | 2022-03-14 18:27 | NUR ---
PT EATS EVENING MEDS WITHOUT A PROBLEM, CONTINUES UP IN THE CHAIR. PT ASLEEP FOR THE FIRST TIME THIS SHIFT SHORTLY AFTER. SATS 99% ON ROOM AIR.
--- NOTE | 2022-03-14 19:00 | NUR ---
WHILE PATIENT IS SLEEPING I STRAIGHTEN UP HIS ROOM. BED ALARM HIS ON. CALL LIGHT WITH IN REACH. THE KITCHEN BROUGHT HIM UP SOME CHICKEN STRIP DINNER HE ONLY TOOK A COUPLE OF BITES OF HIS CHICKEN AN MAYBE HALF OF THE ICE CREAM BEFORE HE STARTED TO FALL ASLEEP. THE NURSE HELPED ME GET HIM BACK TO HIS BED. FROM THE CHAIR.
--- NOTE | 2022-03-14 19:15 | NUR ---
REPORT RECEIVED FROM DAY SHIFT RN. PT LYING IN BED RESTING WITH EYES CLOSED. RESPIRATIONS EVEN. BED ALARM FOR SAFETY. CALL LIGHT IN REACH.
--- NOTE | 2022-03-14 22:18 | NUR ---
PT CONTINUES TO REST WITH EYES CLOSED. LEFT UNDISTURBED PER MD ORDER. RESPIRATIONS EVEN. PT IN VIEW OF NURSES STATION. BED ALARM FOR SAFETY.
--- NOTE | 2022-03-15 00:45 | NUR ---
SPOT CHECK SpO2 99% ON RA. HR 60'S. SKIN COOL, WARM BLANKET PROVIDED. ATTENDS CHECKED AND APPEAR DRY. PT OPENED EYES BRIEFLY WHILE THIS RN IN ROOM. BED ALARM FOR SAFETY. WALTER LIGHT IN REACH.
--- NOTE | 2022-03-15 03:00 | NUR ---
PT RESTING WITH EYES CLOSED. RESPIRATIONS EVEN. CALL LIGHT IN REACH.
--- NOTE | 2022-03-15 05:15 | NUR ---
PT RESTING WITH EYES CLOSED. PT HAS REPOSITIONED LEGS AND MOVED BLANKETS. RESPIRATIONS EVEN. BED ALRM FOR SAFETY. CALL LIGHT IN REACH.
--- NOTE | 2022-03-15 06:32 | NUR ---
PT AWAKE TRYING TO GET LEGS OVER SIDE RAILS. PT NEED TO VOID. ASSISTED WITH URINAL TO VOID 50 ML YELLOW URINE. PT INCONTINENT OF LARGE AMOUND OF URINE. NAHUN/SKIN CARE COMPLETE. CLEAN BRIEF PLACED. PT ABLE TO PARTICIPATE WITH CARES AND FOLLOW COMMANDS. PT ORIENTED TO SELF. REPORTS BLURRED VISION. 2PA TO REPOSITION IN BED. SIPS OF WATER AND WARM BLANKET PROVIDED. PT DENIES PAIN OR NAUSEA. NO FURTHER NEEDS. BED ALARM FOR SAFETY. CALL LIGHT IN REACH.
--- NOTE | 2022-03-15 07:20 | NUR ---
Report received from Barbra REED. Pt resting in bed with FIREARMS SALES ASSOCIATE at bedside, pt responds to voice and states no needs. Will continue plan of care.
--- NOTE | 2022-03-15 09:10 | NUR ---
Scheduled medications administered, [place] given, assessment complete. Pt is restless in bed and states "very cold", repositioned in bed and warm blankets provided. VSS. I/Os complete. Pt ate 20% of breakfast, consisting of yogurt and eggs. Pt drowsy after eating. Bed alarm on, pt visible from nurses station. No further needs.
--- NOTE | 2022-03-15 10:51 | NUR ---
Patient resting in bed with eyes closed, even and unlabored respirations. Pt awakens to voice/touch but states "quit that" and closes eyes. Allowed to rest at this time. In view of nurses station, bed alarm in place.
--- NOTE | 2022-03-15 11:43 | NUR ---
Pt resting in bed with eyes closed, respirations even and unlabored. On room air. No distress noted and no needs identified. Call light in reach, bed alarm in place.
--- NOTE | 2022-03-15 12:30 | NUR ---
Spoke with Karla MARTINEZ from [facility]. She declined Javi as he is above their level of care. Pt requires a sitter at times and they cannot provide. Texted Ree at [facility] and the bed they had available is no longer available. She will send the chart to [facility] in [place]. I will contact Blanche at [facility] in [place].
--- NOTE | 2022-03-15 12:45 | NUR ---
Pt continues to rest in bed with eyes closed. Awakens to voice, remains drowsy and when not stimulated directly falls asleep. No distress noted. Bed alarm on.
--- NOTE | 2022-03-15 13:47 | NUR ---
Scheduled pain medication administered. Pt sitting up in bed, able to swallow pill with pepsi and tolerated well. Pt repositioned in bed, bed alarm in place. No needs at this time.
--- NOTE | 2022-03-15 14:15 | NUR ---
Pt up to chair, alert and oriented to self and place. Pt requests this RN remain at bedside. Assisted patient in eating snack and drinking water. Pt requests that "his friend comes in", Pt's friend Armando notified and he states he will be in this evening.
--- NOTE | 2022-03-15 15:30 | NUR ---
Pt slightly restless in chair, calling out frequently for staff to visit. This RN and CNAs in room to talk with patient and reassure safety. In view of nurses station, chair alarm in place. Pt has phone in hand and is assisted to call a different friend to talk.
--- NOTE | 2022-03-15 16:03 | NUR ---
Spoke with Admissions at [facility] in [facility]. She requests chart. Will let me know in AM if they can eval this pt tomorrow.
--- NOTE | 2022-03-15 16:50 | NUR ---
Called and spoke with Marie from [facility], she is region director.Will fax chart and she will check for bed availability in [facility]. Received a message from Hal Sarmiento, pts medical rep. He is requesting a letter from the Dr. showing pt is unable make appropriate decisions. Will leave a message for Dr. Damian. Returned call and left message of updates where we are attempting to place and denials. Updated I have a left a message for Dr. Damian.
--- NOTE | 2022-03-15 18:10 | NUR ---
This RN assists patient with eating dinner, pt tolerates 50% of pizza and does well with holding it in his hands. Pt able to swallow pills with water, does well when able to feel each pill with his fingers before placing it on his own tongue. Pt provided with roll of coban, specimen cup and empty pill cup as he likes to hold each item and ask what it is. Scheduled medications administered, pt reports having "some" pain in his head. Bed alarm in place, in view of nurses station.
--- NOTE | 2022-03-15 18:55 | NUR ---
Pt calling out "nurse!" in room to assist with urinal use, 75ml and x1 incontinent. Richelle care and dry attends in place. Pt has no further needs, warm blankets provided, bed alarm on
--- NOTE | 2022-03-15 19:20 | NUR ---
REPORT RECEIVED FROM DAY SHIFT RN. PT LYING IN BED CONFUSED YELLING OUT AND WHISTLING. STAFF AT BEDSIDE TO ASSIST. BED ALARM FOR SAFETY.
--- NOTE | 2022-03-15 20:15 | NUR ---
VISITOR TO NURSES STATION FOR ASSISTANCE. PT IN BED PULLING GOWN, BRIEF, AND ALLEVYNS OFF ELBOW. IN TO ASSIST TO USE THE URINAL. BRIEF CHANGED. 2PA TO REPOSITION IN BED. BED ALARM ON. VISITOR BACK IN ROOM.
--- NOTE | 2022-03-15 21:10 | NUR ---
PT CALLING OUT AND WHISTLING. IN TO ASSIST PT USE THE URINAL TO VOID 50 ML. LINENS AND BRIEF WET. ASSISTED WITH NAHUN CARE. CLEAN LINENS AND BRIEF PROVIDED. 2PA TO REPOSITION IN BED. BED ALARM ON.
--- NOTE | 2022-03-15 21:14 | NUR ---
pt hollered out, assisted with urinal. reminded pt that is was bed time. bed alarm continues in place. Reminded him to cover up as it is cold. he attempted to cover best he could.
--- NOTE | 2022-03-15 21:39 | NUR ---
PT YELLED NURSE, FOUND HIM IN ROOM, COVERS DISCHEVELED, ATTENDS OFF SAID HE NEEDED TO PEE. ASSISTED WITH URINAL, AFTER TIME HE SAID I DON'T HAVE TO GO. FRESH ATTENDS PLACED, HE FOLLOWED COMMANDS, BED STRAIGHTENED, SECOND RN ASSIST PT UP INTO BED, REMINDED HIM TIME AND BEDTIME.
--- NOTE | 2022-03-15 22:32 | NUR ---
PT WITH INCREASED RESTLESNESS IN BED. SITTING UP AND BACK, STATES "I'M HAVING A HARD TIME BREATHING" AND OCCASIONALLY PATTING ON CHEST AND HEAD. REPORTS HEADACHE PAIN 12/05. PT DENIES CHEST PAIN. VS WNL. SpO2 99% ON RA. LUNGS CLEAR. ASSISTED PT TO REPOSITION WITH HOB ELEVATED SEVERAL TIMES, PT DENIES RELIEF. DR. REYES NOTIFIED. INSTRUCTED TO GIVE PRN FOR PAIN AND NOTIFY HIM IF NO CHANGE. IN TO ADMIN PRN. PT REPORTS BREATHING "MEDIUM." 2PA TO STRAIGHTEN LINEN AND CHANGE BRIEF. WARM BLANKET PROVIDED. AT THIS TIME PT LYING STILL IN BED. HOB ELEVATED. BED ALARM FOR SAFETY. PT IN VIEW OF NURSES STATION.
--- NOTE | 2022-03-15 23:24 | NUR ---
PT CALLING "HELP" IN TO ASSIST USE URINAL TO VOID 50 ML. PT REPOSITIONED AND LINENS FIXED. BED ALARM ON.
--- NOTE | 2022-03-16 00:45 | NUR ---
PT WHISTLING LOUDLY. IN TO ASSIST USE URINAL AND CHANGE ATTENDS. 2PA TO REPOSITION IN BED. WARM BLANKET PROVIDED. PT PICKING THINGS OUT OF THE AIR AND REMOVING THE "CHEW" FROM HIS MOUTH. PT NOT ABLE TO BE REDIRECTED. PT SITTING UP AND BACK IN BED, PULLING BLANKETS OFF. LEGAL SERVICE SPECIALIST AT BEDSIDE.
--- NOTE | 2022-03-16 01:12 | NUR ---
PT CONTINUES TO WHISTLE. IN ROOM TO ASSIST PT TO SIT UP IN BED. SIPS OF WATER GIVEN. PT RESTLESS PULLING AT BLANKETS AND PICKING THE AIR. BED ALARM ON. PT IN VIEW OF NURSES STATION.
--- NOTE | 2022-03-16 02:08 | NUR ---
BED ALARM SOUNDING. IN TO ASSIST PT TO VOID 50 ML IN URINAL. 2PA TO REPOSITION IN BED. BED ALARM IN PLACE.
--- NOTE | 2022-03-16 02:40 | NUR ---
PT CALLING OUT FOR HELP. ASSISTED WITH BLANKETS AND PILLOWS. PT RESTLESS PULLING BLANKETS OFF. REMINDED PT IT IS NIGHT TIME AND HE SHOULD REST. PT SAYS HE CAN NOT SLEEP BECAUSE HE IS "SCARED." PT REASSURED. CONTINUES TO BE RESTLESS. CROSSING LEGS AND SCRATCHING/RUBBING AT FEET AND LEGS. SITTING UP AND BACK IN BED. SIDE RAILS UP AND BED ALARM IN PLACE.
--- NOTE | 2022-03-16 03:19 | NUR ---
PT CALLING OUT FOR HELP. UNABLE TO EXPRESS WHAT HE NEEDS HELP WITH. PT INCREASED RESTLESSNESS THRASHING IN BED TRYING TO CRAWL OVER SIDE RAILS. PT COOPERATIVE BUT QUICK TO FORGET REQUIRING FREQUENT REMINDERS FOR SAFETY. RN AT BEDSIDE 1:1.
--- NOTE | 2022-03-16 04:50 | NUR ---
THIS RN IN PT ROOM SINCE 329, RESTLESS, PICKING AT AIR, COVERING UP, UNCOVERING,TOSSING AND TURNING. PULLING PILLOWS OUT FROM UNDER HEAD, BACK UNDER HEAD. VOIDED ONLY ONCE THE TIME IN ROOM. CURRENTLY HE HAS BEEN STILL FOR 10 MIN, IS SLIGHTLY COVERED UP. WHILE THIS RN IN ROOM, HE EXPRESSED THAT HE COULD SEE THE CEILING TILES, HOWEVER, BLUE. THIS RN MOVED MY HAND ON A SIDE TO SIDE MOTION, AND ASK HIM WHAT I WAS DOING. HE SAID MOVING YOUR HAND, HE WAS ABLE TO SHOW THIS RN THE MOTION. IS IN SIGHT OF STAFF AT NURSES STATION, BED ALARM PLACED.
--- NOTE | 2022-03-16 05:30 | NUR ---
PT RESTING IN BED WITH EYES CLOSED AT THIS TIME. WARM BLANKET GIVEN PT REMOVED BLANKETS BEFORE FALLING ASLEEP.
--- NOTE | 2022-03-16 06:14 | NUR ---
PT FIDGETY WITH BLANKETS, PILLOWS. INTO ROOM BED ALARM WAS SOUNDING. TALKED ABOUT SLEEP, PT STATED "WHAT ARE YOU TALKING AOBUT, I SLEPT ALL NIGHT", REALITY IS HE SLEPT LITTLE OVER AN HOUR CONSISTENTLY. BED ALARM PLACED.
--- NOTE | 2022-03-16 07:45 | NUR ---
PATIENT AWAKE IN BED, 2PA AMBULATED TO RECLINER, FACE AND HANDS WASHED, PERSONAL SHIRT ON. PATIENT STOOD AT SIDE OF BED AND ATTEMPTED TO USE URINAL, WAS NOT ABLE TO URINATE. CHAIR ALARM ON FOR SAFETY, CALL LIGHT AND PERSONAL ITEMS IN EASY REACH.
--- NOTE | 2022-03-16 08:15 | NUR ---
PATIENT IN WHEELCHAIR FOR WALK AROUND NURSES STATION WITH THIS PHOTOFLASH POWDER MIXER. BACK TO ROOM, PATINET IN RECLINER, CHAIR ALARM ON FOR SAFETY, FRESH ICE WATER PROVIDED.
--- NOTE | 2022-03-16 09:00 | NUR ---
BREAKFAST PROVIDED, PATIENT ABLE TO USE FORK AND STAB AT PLATE BUT UNABLE TO SEE FOOD OR ANYTHING ON TABLE IN FRONT OF HIM. THIS VIDEO EFFECTS EDITOR ASSISTING.
--- NOTE | 2022-03-16 09:43 | NUR ---
IN ROOM TO DO ASSESSMENT AND GIVE MORNING MEDS. PT RESTING IN ARMCHAIR SITTING UP WITH EYES CLOSED. PT CALM AND COOPERATIVE. RESP EVEN AND UNLABORED. OPENS EYES AND ATTEMPTS TO IDENTIFY THE COLOR OF MY SHIRT, LOOKS UP AND DOWN AT ME. STEPHANIE CHAUHAN IN ROOM TO ACCOMPANY PT.
--- NOTE | 2022-03-16 11:00 | NUR ---
PATIENT STOOD AT SIDE OF CHAIR TO USE URINAL. 100ML OUT. PATIENT BACK IN RECLINER, CHAIR ALARM ON FOR SAFETY. THIS ELECTRO MECHANICAL SOLAR TECHNICIAN KEEPING CLOSE WATCH ON HIM.
--- NOTE | 2022-03-16 13:00 | NUR ---
PATIENT ATE VERY LITTLE LUNCH, HAS SEVERAL DIFFERENT DRINKS ON HIS SIDE TABLE, ISN'T INTERESTED IN DRINKING ANY OF THEM. VERY FIDGITY WITH BLANKETS AND ANYTHING IN HIS REACH. VITALS AND I&OS CHARTED. CHAIR ALARM ON FOR SAFETY, THIS HOG BUYER IN ROOM WITH PATIENT.
--- NOTE | 2022-03-16 15:29 | NUR ---
PATIENT HAS BEEN AMBULATING IN ROOM AND TO NURSES STATION WITH FWW AND GAIT BELT, THIS SALES DEVELOPMENT REPRESENTATIVE ASSISTING.
--- NOTE | 2022-03-16 16:20 | NUR ---
ASSESSMENT DONE. PT ALTERNATING BETWEEN SITTING UP IN ARMCHAIR AND STANDING. VERY RESTLESS, PICKING AT BLANKETS, TOUCHING HEAD, SHIFTING AROUND IN CHAIR REPEATEDLY. PT DENIES PAIN, SOB, BOREDOM, NEED FOR RESTROOM. STEPHANIE AHYS IN ROOM WITH PT. PT NOW WEARING SCRUB PANTS AND BUTTON UP SHIRT. PT SEEMS TO MAKES EYE CONTACT WHEN SPOKEN TO BUT IS UNABLE TO SEE MY HAND IN FRONT OF HIM. PT DENIES FURTHER NEEDS AT THIS TIME.
--- NOTE | 2022-03-16 18:11 | NUR ---
PATIENT DID NOT EAT ANY DINNER. PATIENT BVERY AGGITATED AT THIS TIME. KEEPS ASKING US TO HELP HIM BUT GETS MAD WHEN ASKED WHAT HE WANTS. RN NOTFIED. VITALS AND I&O'S CHARTED. PATIENT IN BED AT THIS TIME. THIS CONSUMER INSIGHTS INTERN IN ROOM WITH PATIENT.
--- NOTE | 2022-03-16 18:24 | NUR ---
IN ROOM TO GIVE MEDICATION. PT SITTING UP IN BED WITH 2 STUBBER'S PRESENT. PT RESTLESS, FREQUENTLY CHANGING POSITION. PT ENDORSES HEADACHE AFTER INITIAL ASSESSMENT, UNABLE TO RATE IT, REPEATEDLY ASKING FOR PAIN PILLS. REASSURANCE GIVEN THAT HE JUST TOOK THEM. PT SHIFTING AROUND IN BED, REMOVING CLOTHES. PT GRABBIGN AT BED RAILS AND STATING HE FEELS SOB. SOB RESOLVES WITH DEEP BREATHING AND COUNTING TO 10 THREE TIMES. PT ATTEMPTING TO GET OUT OF BED, REQUESTS TO USE URINAL. LEFT ROOM WITH PT IN BEDNAD STUBBER AT BEDSIDE.
--- NOTE | 2022-03-16 19:20 | NUR ---
report from jessi rn and deonte cooper pt asleep apearing resp even, in bed with eyes closed, alarm on and sitter at side during day shift. did not awaken, confirm alarm and call light on and in reach,
--- NOTE | 2022-03-16 20:28 | NUR ---
no changes - pt resting in bed with alarm on and resp even. visible from rn station.
--- NOTE | 2022-03-16 22:48 | NUR ---
pt sleeping soundly, resp 16 - vitals and assment defered. pt son rafael called and spoke to this rn for updates. (20 min) pt moves around in bed on own, bed alarm on. prn meds available no scheduled meds at this time. visible from rn station.
--- NOTE | 2022-03-17 | NUR ---
DR REYES CALLED - NOTIFIED THAT PT IS RESTING AND COMFORTABLE APPEARS - DID NOT DISTURB FOR VITALS/ASSESMENT. ALARM ON - PT MOVES IN BED ON OWN.
--- NOTE | 2022-03-17 00:12 | NUR ---
DR REYES UPDATED THAT pt HAS BEEN RESTING IN BED SINCE START OF SHIFT, EVENING VS HELD D/T pt RESTING QUIETLY AND COMFORTABLY, PRIMARY RN YOBANY MONITORING RR AND pt. BED ALARM REMAINS ON FOR SAFETY. CALL LIGHT IN REACH.
--- NOTE | 2022-03-17 02:33 | NUR ---
pt resp 16 even, pt moving around yet eyes closed, bed alarm on, pedal pulses good - covered feet with blkt. after checkin attends - clean and dry - rn did not disturb pt.
--- NOTE | 2022-03-17 04:23 | NUR ---
BED ALARM SET OFF, PT TRYING TO SIT UP IN BED, INCONT OF URINE AND VOID WITH URINAL, NEW CHUX, LINENS, PT CLEANED UP, VS TAKEN, NO FURTHER NEEDS AT THIS TIME
--- NOTE | 2022-03-17 04:28 | NUR ---
pt awakened and asked to use the urinal - rn assist - 100 ml dark yellow urine noted - inc. of urine in bed. gown changed, and rn assessed and stood pt at bedside, he remembered this rn, and gladly stood with 1 person assist - gave me a hug. bed changed, and new attends placed by photo booth operator as pt stood with rn, skin wnl - pt opens eyes to command - still unable to visualize items in the room, appears to possibly see shadows? pt knows we are in [place], and at [facility] - not sure why or how. pt assisted back to bed with heels floated, bed alarm on and assessment/i/o complete - pt denies needs and easily falls back to sleep.
--- NOTE | 2022-03-17 04:43 | NUR ---
pt HEARD CALLING OUT FOR HELP, ASSISTANCE PROVIDED WITH URINAL. NO ADDITIOANL NEEDS, CALL LIGHT IN REACH AND BED ALARM ON FOR SAFETY.
--- NOTE | 2022-03-17 06:10 | NUR ---
assisted pt to use urinal - 50 ml yellow urine and attends changed inc of urine. pt polite - yells out for nurse - call light on bed - unable to see.
--- NOTE | 2022-03-17 06:55 | NUR ---
IN RM A FEW TIMES D/T PT CALLING OUT, PT APPROPRATELY ASKING FOR SIPS, TURNS ON TO SIDE, BED ALARM IN ACTIVE
--- NOTE | 2022-03-17 07:16 | NUR ---
REPORT RECIEVD, CARE RESUMED. PT CALLING OUT FOR "NURSE" MULTIPLE TIMES THIS MORNING, SHIFTING AROUND IN BED. ASSISTED PT TO POSITION OF COMFORT AND GAVE PRN PAIN MEDICATION FOR 8/10 BACK PAIN. PT RESTIGN NOW LISTENING TO MUSIC. RESP EVEN AND UNLABORED.
--- NOTE | 2022-03-17 10:00 | NUR ---
PT REQ TO USE BATHROOM. PT ASSISTED TO BATHROOM BY 1 PA USING FWW. PT FOLLOWED VERBAL COMMANDS VERY WELL WHILE NAVIGATING TO BATHROOM. PT INSTRUCTED TO PULL CALL CORD WHEN HE IS ALL DONE AND WHEN HE IS READY TO BE CLEANED. PT FOLLOWED THESE INSTRUCTIONS VERY WELL AND CALL APPROPRIATLEY. NEW BRIEF PUT ON PT. PT FELT WEAK TRYING TO GET OFF TOILET. RN CALLED INTO ROOM TO ASSIST. PT ASSISTED BACK TO CHAIR. NO NEEDS. CALL LIGHT WITHIN REACH.
--- NOTE | 2022-03-17 10:03 | NUR ---
Attempted to call Rn at [facility] in [facility] x 3 and I am unable to reach. I wanted to confirm time for visit, staff state she has left already. Let staff know she will see pt either in the am or after lunch. Asked they notify me when she arrives.
--- NOTE | 2022-03-17 10:19 | NUR ---
RN FROM [facility] HERE TO ASSESS PT. ALL QUESTIONS ANSWERED AND PT. INTRODUCED.
--- NOTE | 2022-03-17 10:20 | NUR ---
REPORT RECEIVED FROM NIGHT RN AND PT. CARE RESUMED. PT. IS UP IN THE CHAIR AND PLEASANT. HE DENIES PAIN. PT. ANSWERING QUESTIONS, ORIENTED TO SELF AND PLACE. HE IS FOLLOWING COMMANDS WELL. ASSESSMENT COMPLETED. ALLEVYN INTACT ON GLUTEAL CLEFT. PT. LEFT RESTING WITH ALARM ON AND CURTAIN OPEN.
--- NOTE | 2022-03-17 11:43 | NUR ---
Lengthy discussion with Myra Mooney, from [facility]. She was able to evaluate pt and will review chart of progress notes, nurses notes, emar, and PT/OT notes. She will call this afternoon or tomorrow to let us know if they accept this pt.
--- NOTE | 2022-03-17 12:20 | NUR ---
Pt calling out from armchair. BRIANNA Bauer went into room to assist pt and pt was noted to have difficulty with speech, repeating words, difficulty word finding, some slurred speech. Dr Damian was called in to assess pt. Pt seems agitated, asking repeatedly for an "answer". Awaitint head CT, no contrast. no IV in placed, MD aware. Pt cleared to get in bed, then was saying he couldn't breathe. SOB improved with couting to ten and coached breathing. speech imrpoved, agitation worsened. Awaiting CT.
--- NOTE | 2022-03-17 13:00 | NUR ---
Received a call from the Yacht Master of [facility]. He is requesting info on Javi and planning on setting up an eval by Marie Weems to evaluate. Discussed with him, this pt was already evaluated by Naya and María Rn from [facility]. He was accepted, but pt declined placement. When pt finally agreed, the bed was filled. He states they are considering him for [facility] or [facility], with plan to return to [facility] when a bed opens here. I gave him Hal, the step son's phone number.
--- NOTE | 2022-03-17 13:46 | NUR ---
PT GIVEN PRN LORAZEPAM FOR AGITATION PER MD ORDER. PT TAKEN TO CT BUT WAS UNABLE TO HOLD STILL OR COOPERATE LONG ENOUGH TO GET HEAD CT DONE. MD NOTIFIED, PT TAKEN BACK TO ROOM TO REST. PT SITTING UP AT BEDSIDE WITH BED ALARM ON FIGEDTING WITH BEDDING, STUFFED ANIMAL.
--- NOTE | 2022-03-17 14:42 | NUR ---
Called Hal, and updated on [facility] and call from Chemistry Quality Control Analyst at [facility]. He is agreeable to placement whereever we can find, but would like pt moved back to [place] if possible. He is also ok with placement to [facility]. He asks if Dr. Damian is willing to write a letter stating pt is incompetent. Let him know, hospitalist did not feel comfortable doing this. Encouraged him to contact pts pcp. He states he is having issues with the bank not accepting his financial POA. Hal states they did complete a POA. He states he will contact his attorney lawyer as [facility] needs bank statements and the bank is refusing to give. He thanks me for our time, let him know we will cont. to work on placement and will update when we hear from any facilities.
--- NOTE | 2022-03-17 15:27 | NUR ---
PT RESTING IN BED WITH EYES CLOSED. PT NOTED TO HAVE APNEIC PAUSES. O2 94% ON RA, HR 102. RR VARIABLE 18-36 IMMEDIATELY AFTER PAUSE. PT VISIBLE FROM NURSE'S STATION.
--- NOTE | 2022-03-17 16:20 | NUR ---
ASSESSMENT DONE. PT RESTING IN BED WITH EYES CLOSED AND MUSIC PLAYING. PT CALM AND AGREEABLE TO GOING TO DO CT SCAN.
--- NOTE | 2022-03-17 18:18 | NUR ---
NOTIFIED OF HEAD CT RESULTS.
--- NOTE | 2022-03-17 19:20 | NUR ---
pt somulent in bed with alarm on, resp rate regular 16 - pt apears to be sleeping eyes closed. soundly after todays dose of ativan im for ct scan after cva event around noon. visible from rn station.
--- NOTE | 2022-03-17 22:08 | NUR ---
pt howlering, was incontinent of large amounts of urine, attends changed, very sensitiive to touch, semihelped with repositioning and pulling attends. skin care done. Bed alarm in place
--- NOTE | 2022-03-17 22:17 | NUR ---
PT AWAKEND AGITATED - VOID, INC URINE - CLEANED AND ATTENDS CHANGED - PT ORIENTED TO THIS RN, KNOWS WE ARE AT [facility] AND KNOWS WORDS TO SONGS AND ARTIST ON TV. SINGS ALONG APPROPRIATLY. C/O HEADACHE - NORCO PRN GIVEN WITH DRINKS OF DIET PEPSI - SWALLOWS WELL. REMEMBERS VISIT TODAY FROM KATI ROSE - WE CHIT CHAT ABOUT HIS FRIEND AND HE RELAXES AND SETTLES TO SLEEP. ASSESSMENT COMPLETE - HR IRREG. 62, NO IV, BE ALARM ON.
--- NOTE | 2022-03-18 01:25 | NUR ---
PT REMAINS EYES CLOSED, RESP 16, ATTENDS DRY, BED ALARM ON, NO APPARENT DISTRESS.
--- NOTE | 2022-03-18 04:30 | NUR ---
no pt changes, visible to rn station, resp even 16 rate - eyes closed. attends dry/clean
--- NOTE | 2022-03-18 06:14 | NUR ---
awakened pt for vitals, i/o and assist with urinal. inc x1 and 50 ml yellow urine. pt cooperative with this staff, oriented to self, place and date, easily falls back to sleep after attends changed and pt scoots self to top of bed with coaching to reposition. call light and bed alarm on.
--- NOTE | 2022-03-18 08:21 | NUR ---
Report received, care resumed. Pt resting in armchair, requests warm blanket. helped pt get comfortable and gave a warm blanket. resp even and unlabored, pt denies pain. A/o to self, town. Pt calling out for "corporate real estate specialist" this morning vs "nurse yesterday". No further needs at this time.
--- NOTE | 2022-03-18 09:33 | NUR ---
ASSESSMENT DONE, MORNING MEDS GIVEN. PT A/O TO SELF, TOWN ONLY. VITALS STABLE, GOOD APPETITE THIS MORNING. PT DENIES PAIN BUT LATER SAYS "OH MY HEAD" THEN SAYS HE'S "FINE". PT ALSO INDICATES SKIN ON HIS BOTTOM IS PAINFUL. SKIN IS RED, RAW, NO DRAINAGE. BARRIER CREAM AND FRESH DEPENDS APPLIED. PT THEN SAYS IT FEELS MUCH BETTER. PT LEFT SITTING IN CHAIR WITH WARM BLANKETS, CHAIR ALARM ON, NO FURTHER NEEDS AT THIS TIME.
--- NOTE | 2022-03-18 10:15 | NUR ---
PT CALLING OUT "BAR MADE". I GROUND TRANSPORTATION OPERATOR ENTER ROOM. PT STATED HE NEED TO USE THE BATHROOM. UPON TRYING TO ASSIST PT TO BATHROOM, PT STATED HE NO LONGER HAD THE URGE TO HAVE A BM. PT COVERED BACK UP WITH BLANKETS.
--- NOTE | 2022-03-18 13:51 | NUR ---
PT IN CHAIR. VITALS AND IS AND OS COMPLETE. NO NEEDS. CALL LIGHT WITHIN REACH.
--- NOTE | 2022-03-18 18:01 | NUR ---
PT CALLING OUT FREQUENTLY FOR NURSE, FIGEDTING WITH ITEMS NEAR HIM, ATTEMPTING TO STAND UP. PT TALKING ABOUT "NEEDING TO LOOK IN A CATALOG". ATTEMPTED TO REORIENT PT MULTIPLE TIMES WITH LIMITED SUCCESS. MEDIACTION GIVEN AND PT SITUATED IN ARMCHAIR WITH BLANKET AND COUNTRY MUSIC PLAYING. PT VISIBLE FROM NURSES STATION, CHAIR ALARM ON.
--- NOTE | 2022-03-18 19:05 | NUR ---
pt up in chair during bedside report from charles rn, pt restless and alert - this rn gave him a cookie while up in chair - he loved it! ch alarm on - pt is frequently moving about - visible from desk, talks on phone appropriatly - still not able to see well but appears to see shadows of objects. attends on cdi.
--- NOTE | 2022-03-18 19:50 | NUR ---
VS & I&O COMPLETED. SBA FWW TO BED. BED ALARM ON, RAILS UP, DOOR OPEN, CALL LIGHT IN REACH.
--- NOTE | 2022-03-18 20:33 | NUR ---
call to dr lewis as this rn, charge and float rns have 1-2 person assist been with pt 1:1 last 30 min while he was agitated, restless and trying to be independent in room ambulatory. pt out of bed and using walker to move around with an unsteady gait - unable to see, rns attempting to guide pt with no success - he is not wanting standby help and running in to the goldstein, near fall, rn's assisted pt to amb to bathroom where he could sit on toilet - he did but refused to let rn assist to remove breif. pt sat no bm or void but was satisfied with sitting - reports back hurts and wants to go back to bed - rn assisted pt standby as any touch or guidance would irritate pt and he would yell out to get the hell out of my way and leave me alone. call to and 1 mg po ativan ordered to help pt de escelated - continues to be 1;1.
--- NOTE | 2022-03-18 22:09 | NUR ---
CALL TO DR TENORIO- PT INCREASING AGITATION AND RESTLESSNESS WITH CONFUSION AND FRUSTERATION. NEW ORDER FRO SERTED PO. PT SITTING ON BEDSIDE WITH RN AT SIDE - REFUSES TO GO TO BED OR CHAIR - YELLING TO LEAVE HIM ALONE - EXPLAINED SAFETY AND ASSIST FOR FALLS - AGITATED IF TOUCHED. RN OBSERVING HIM AND REDIRECTING FOR SAFETY - HE RESTLESSLY STANDS AND SITS AND DOESN'T REALLY KNOW WHERE HE WANTS TO GO. COMPLAINS BACK HURTS, HEAT/ICE PACK OFFERED AND REMINDED THAT HE WAS PROVIDED NORCO X2.
--- NOTE | 2022-03-18 22:27 | NUR ---
MERCEDEZ LEROY GIVEN - PT AGREED TO LAY IN BED, HOWEVER - HE HAD TO ARRAINGE THE SHEETS HIS WAY.. SO THEY ARE PULLED OUT OF THE FOLDS AND PT UNDER THE SHEET. COVERED WITH BLKT - STARTING TO SETTLE DOWN, REMINDED OF LOCAL FRIENDS, CALLED AND LEFT MESSAGE FOR FRIEND DESTINY - PT SMILES ABOUT FRIENDS AND CONVERSES WITH NURSES ABOUT WHERE HE COULD BE AT THIS HOUR. PT BED ALARM ON AND CALL LIGHT IN REACH- RN CONTINUES TO STAY QUIETLY AT BEDSIDE WHILE PT RESTS AND MOVES ABOUT TO GET COMFORTABLE.
--- NOTE | 2022-03-19 01:26 | NUR ---
pt has been resting well since last note - no distress, even resp at 16, appears to be sleeping. bed alarm on and call light in reach - visible from rn station.
--- NOTE | 2022-03-19 04:10 | NUR ---
pt resting in bed, slight movement of hands and resp even. 15 rate. bed alarm on, did not disturb. call light in reach visible from rn station.
--- NOTE | 2022-03-19 07:08 | NUR ---
REPORT RECEIVED FROM YOBANY REED, ALL QUESTIONS ANSWERED. PT RESTING QUIETLY IN BED WITH EYES CLOSED, RESPIRATIONS EVEN AND UNLABORED. BED ALARM ON AND CALL LIGHT IN REACH.
--- NOTE | 2022-03-19 08:35 | NUR ---
PT CONTINUES TO REST IN BED WITH EYES CLOSED, RESPIRATIONS EVEN AND UNLABORED. RESPOSTIONS SELF INDEPENDENTLY FREQUENTLY. BED ALARM ON AND CALL LIGHT IN REACH.
--- NOTE | 2022-03-19 10:15 | NUR ---
MORNING ASSESSMENT COMPLETE. PT DROWSY, ORIENTED TO SELF AND PLACE. PT AWAKENS AND OPENS EYES MOMENTARILY AND THEN CLOSES EYES AND REQUESTS TO GO SLEEP. PT LINENS ADJUSTED. BED ALARM ON AND CALL LIGHT IN REACH.
--- NOTE | 2022-03-19 10:24 | NUR ---
PT RESTING IN BED, AWAKENS EASILY. SAT AT EDGE OF BED TO TAKE MEDICATIONS. PT AWAKE TOOK MEDICATIONS BUT REQUESTED TO GO BACK TO SLEEP. PT LAID DOWN, INDEPENDENTLY SCOOTED UP IN BED. BED ALARM ON AND CALL LIGHT IN REACH.
--- NOTE | 2022-03-19 12:00 | NUR ---
PT IN CHAIR EATING LUNCH. CALL ALINA CHAIR ALARM ON.
--- NOTE | 2022-03-19 13:27 | NUR ---
PT IN CHAIR RESTING. VITALS AND IS AND OS COMPLETE. I HYPO DIPPER ASSIST PT TO WAKE UP AND PT IS ABLE TO START EATING HIS LUNCH IN HIS CHAIR. NO NEEDS. CALL LIGHT WITHIN REACH.
--- NOTE | 2022-03-19 16:00 | NUR ---
REPORT RECEIVED AND PT. CARE RESUMED. PT. IS IN THE CHAIR AND ASKING PULLEY MAN TO "CLIMB UNDER THE BLANKETS TO SNUGGLE". PT REORIENTED AND TOLD STAFF CANNOT DO THIS. HE RESPONDED "AW, DAMN IT". PT. REDIRECTED AND ASSISTED WITH REPOSITIONING IN THE CHAIR. LEFT RESTING WITH CHAIR ALARM ON AND CURTAIN OPEN.
--- NOTE | 2022-03-19 17:46 | NUR ---
PATIENT IN CHAIR AFTER, REFUSED GOING BACK TO BED. VITALS AND I/O'S COMPLETED. PT HAS NO OTHER NEEDS AT THIS TIME. CHAIR ALARM ON. CALL LIGHT WITHIN REACH.
--- NOTE | 2022-03-19 19:10 | NUR ---
report from Lizette ewing, pt up in with alarm. keeps standing and sitting when alarm sets off. pt talkative and busy more pleasant then yesterday. no iv- eating and drinking better today with encouragement. call light in reach.
--- NOTE | 2022-03-19 19:47 | NUR ---
PT UP TO BR, FWW, SBA AND BACK TO BED. VS & I&O COMPLETED. PT SITTING UP IN CHAIR AT THIS TIME. CHAIR ALARM ON. DOOR OPEN TO ROOM.
--- NOTE | 2022-03-19 22:58 | NUR ---
pt quietly resting in bed, resp 16, bed alarm on. eyes closed.
--- NOTE | 2022-03-20 01:10 | NUR ---
PT RESTLESS, VOID 50 ML IN URINAL WITH RN ASSIST, C/O HEADACHE - PRN NORCO GIVEN WITH HOB UP - PT DRANK DIET PEPSI. THANKFUL, REPOSITIONED WITH DIRECTION/COACHING HE CAN SCOOT TO TOP OF BED, CALL LIGHT AND BED ALARM ON= PT RESTING.
--- NOTE | 2022-03-20 02:53 | NUR ---
pt quietly moving in bed, eyes closed, resp even, alarm on and call light in reach - visible to rn station.
--- NOTE | 2022-03-20 04:30 | NUR ---
pt called, rn assist void 50 ml in urinal - pt reoriented visited about music and then he fell asleep, resp even. bed alarm on.
--- NOTE | 2022-03-20 06:11 | NUR ---
PT IN BED. BRIEF SOILED AND CHANGED. VITALS AND IS AND OS COMPLETE. PT SAT UP IN BED AND NEW BRIEF PUT ON. PT BUTTON UP PUT ON WELL. PT ASSISTED TO CHAIR USING FWW BY 1 SYSTEM ADMINISTRATION ADVISOR WELL RN IN ROOM. LINEN CHANGED. WARM BLANKET GIVEN. ICE GIVEN FOR HIS PEPSI. NO FURTHER NEEDS. CALL LIGHT IS WITHIN REACH.
--- NOTE | 2022-03-20 07:00 | NUR ---
Report from Kayla Castorena RN. Patient sitting up in recliner, eyes closed. Call light in reach. Allowed to rest at this time.
--- NOTE | 2022-03-20 08:49 | NUR ---
Sitting up in recliner, responds to staff entering room and speaking. Knows where he is, why is here and what the year is at this time. Does call staff barmaids and waitresses at times this AM. Yells out. Impulsive. Assessment completed. Takes AM medications without difficulty. Call light in reach. Chair alarm in place.
--- NOTE | 2022-03-20 08:55 | NUR ---
PT RESISTANT TO COVID SWAB. CUSSING AND REFUSING TO GET IT DONE BY THIS RT. BREAD DISTRIBUTOR/FIGHTING VEHICLE SYSTEMS MAINTAINER THAT HE HAS A GOOD LLANES WITH HELPED WITH 2ND ATTEMPT AND IT WAS MORE SUCCESSFUL.
--- NOTE | 2022-03-20 09:35 | NUR ---
PT IN CHAIR. VITALS AND IS AND OS COMPLETE. NO NEED. CALL LIGHT WITHIN REACH.
--- NOTE | 2022-03-20 11:48 | NUR ---
Sitting in recliner. No signs of pain or discomfort noted at this time. Call light in reach. Bed rails up X2.
--- NOTE | 2022-03-20 15:48 | NUR ---
This nurse in room frequently the last 2 hours due to impulsiveness. Multiple attempts to get out of chair without assist. Sexually inappropriate comments at times. Assist to put pants on due to fixation on wearing pants. Assist to put shoes on per request. Snacks and drinks provided. Denies need to use urinal. Chair alarm remains in place. Staff able to view patient at all times.
--- NOTE | 2022-03-20 16:01 | NUR ---
Visitors in to see patient at this time.
--- NOTE | 2022-03-20 19:38 | NUR ---
PT RESTING IN BED WITH EYES CLOSED. RESPIRATIONS EVEN. BED ALARM FOR SAFETY. CALL LIGHT IN REACH. PT IN VIEW OF NURSES STATION.
--- NOTE | 2022-03-20 22:49 | NUR ---
PT CONTINUES TO REST WITH EYES CLOSED. RESPIRATIONS EVEN. BED ALARM FOR SAFETY. CALL LIGHT IN REACH.
--- NOTE | 2022-03-20 23:49 | NUR ---
ASSISTED IN USING URINAL. PATIENT URIANTED 50ML. PULL UP AND SCRUB PANTS SOAKED WITH URINE AND CHANGED FRESH PULL UPS. BLANKETS ARE WET AND CHANGED FRESH ONES. BED ALARM ON FOR SAFETY.
--- NOTE | 2022-03-21 03:07 | NUR ---
PT RESTING IN BED WITH EYES CLOSED. RESPIRATIONS EVEN. BED ALARM FOR SAFETY.
--- NOTE | 2022-03-21 05:14 | NUR ---
PT RESTING WITH EYES CLOSED. REPOSITIONS OCCASIONALLY. RESPIRATIONS EVEN. BED ALARM FOR SAFETY. PT IN VIEW OF NURSES STATION.
--- NOTE | 2022-03-21 06:33 | NUR ---
PT RESTING WITH EYES CLOSED. AWAKENS EASILY. ANSWERING QUESTIONS APPROPRIATELY. ORIENTED TO SELF. VS AND I&O COMPLETE. PT REPORTS PAIN IS TOLERABLE. DENIES NEEDS AT THIS TIME. CALL LIGHT IN REACH. BED ALARM FOR SAFETY.
--- NOTE | 2022-03-21 06:58 | NUR ---
CHECKED PATIENT'S PULL UP AND IT'S DRY.
--- NOTE | 2022-03-21 07:00 | NUR ---
Report from Tamiko Pleitez RN. Patient resting in bed, eyes closed. Respirations even and unlabored. Allowed to rest.
--- NOTE | 2022-03-21 09:05 | NUR ---
SPOKE WITH LULU REED AT [facility]. LULU REED REQUESTING UPDATED NURSING NOTES, PROGRESS REPORTS AND PT NOTES FROM THE WEEKEND. CHART NOTES FAXED TO [phone].
--- NOTE | 2022-03-21 10:06 | NUR ---
Sitting up in chairs. States he wants to go home. Re-oriented to environment. Denies needs. Call light in reach.
--- NOTE | 2022-03-21 11:10 | NUR ---
PT VISUAL FROM OUTSIDE ROOM. PT IS RESTING IN CHAIR.
--- NOTE | 2022-03-21 13:04 | NUR ---
PT IN CHAIR. VITALS AND IS AND OS. NO NEEDS. CALL LIGHT WITHIN REACH.
--- NOTE | 2022-03-21 14:00 | NUR ---
Sitting up in recliner. States buttocks is sore and is requesting "cream or salve." This nurse assessed buttocks, blanchable redness noted, multiple pinpoint scabs present, healing well. Barrier cream applied, sitting on pillow.
--- NOTE | 2022-03-21 14:36 | NUR ---
PATIENT UP TO BATHROOM WITH SBA TO VOID. BACK TO CHAIR, WARM BLANKET PROVIDED.
--- NOTE | 2022-03-21 15:17 | NUR ---
DIET IS NOW REGULAR WITH FINGER FOODS. PATIENT IS EATING DECENTLY. HE IS ABLE TO FEED HIMSELF MORE WITH FINGER FOODS. THE VARIETY OF WHAT DIETARY CAN PROVIDE IS A BIT LIMITED DUE TO NEEDING FINGER FOODS. PATIENT LIKES DIET PEPSI AND DRINKS IT THROUGHOUT THE DAY. WILL CONTINUE TO PROVIDE FINGER FOODS WHILE HERE.
--- NOTE | 2022-03-21 15:57 | NUR ---
SPOKE WITH GEOVANY AT [employer]. UPDATES HAVE BEEN RECVD AND ARE BEING REVIEWED BY LULU REED.
--- NOTE | 2022-03-21 16:56 | NUR ---
Up in chair most of the day. Redness to coccyx, barrier cream applied. Asking for assist to make calls throughout the day.
--- NOTE | 2022-03-21 19:23 | NUR ---
REPORT RECEIVED FROM DAY SHIFT RN. PT SITTING IN RECLINER. REFUSED TO GO TO BED AT THIS TIME. WILL ATTEMPT AGAIN. DENIES NEEDS. WHITE BOARD UPDATED. CHAIR ALARM IN PLACE.
--- NOTE | 2022-03-21 20:30 | NUR ---
PT TO BED FROM RECLINER AFTER VISITOR LEFT WITH FWW AND SBA. VS AND I&O COMPLETE. EVENING ASSESSMENT COMPLETE. PT REPORTS HEADACHE PAIN 6/10. PRN FOR PAIN ADMIN PER EMAR. PT PLEASANT AND COOPERATIVE WITH CARES. WARM BLANKET PROVIDED. DENIES QUESTIONS OR CONCERNS. CALL LIGHT IN REACH. BED ALARM FOR SAFETY. PT IN VIEW OF NURSES STATION.
--- NOTE | 2022-03-21 21:30 | NUR ---
PT UP TO BR WITH FWW AND SBA TO ATTEMPT BM WITH NO RESULTS. BACK TO BED. GAIT UNSTEADY AT TIMES. PT REQUIRES CONSTANT VERBAL CUES FOR DIRECTION. PT COOPERATIVE DURING CARES. WARM BLANKET PROVIDED. DENIES FURTHER NEEDS. CALL LIGHT IN REACH. BED ALARM ON.
--- NOTE | 2022-03-21 23:38 | NUR ---
PT RESTING IN BED WITH EYES CLOSED. RESPIRATIONS EVEN. CALL LIGHT IN REACH. BED ALARM FOR SAFETY.
--- NOTE | 2022-03-22 02:16 | NUR ---
PT OOB WITH FWW AND SBA TO VOID. PT REFUSING TO GO BACK TO BED AT THIS TIME, WANTING TO SIT IN RECLINER. PT SITTING IN RECLINER WITH CHAIR ALARM IN PLACE. DIET PEPSI PROVIDED PER REQUEST. LEGS ELEVATED. NO FURTHER NEEDS.
--- NOTE | 2022-03-22 03:22 | NUR ---
PT DOZING ON AND OFF. AGREEABLE TO GO BACK TO BED. 1PA WITH FWW. PT POSITIONED TO RIGHT SIDE. WARM BLANKET PROVIDED. NO FURTHER NEEDS. BED ALARM IN PLACE.
--- NOTE | 2022-03-22 04:00 | NUR ---
PT SEEN WITH LEGS OVER SIDE RAIL. IN TO ASSIST PT USE URINAL TO VOID 125 ML. 2PA TO REPOSITION IN BED. NO FURTHER NEEDS. BED ALARM IN PLACE.
--- NOTE | 2022-03-22 04:36 | NUR ---
PATIENT ASSISTED TO USE THE URINAL. PATIENT ABLE TO VOID. PRN PAIN MEDICATION PER PATIENT REQUEST. PATIENTS VITALS TAKEN AND RECORDED. INTAKE AND OUTPUT RECORDED. PATIENT IS RESTING IN BED. NO FURTHER NEEDS NOTED. CALL LIGHT IN REACH. BED ALARM ON FOR SAFETY.
--- NOTE | 2022-03-22 06:16 | NUR ---
PT RESTING IN BED WITH EYES CLOSED. RESPIRATIONS EVEN. BED ALARM ON. PT IN VIEW OF NURSES STATION.
--- NOTE | 2022-03-22 06:59 | NUR ---
PT HEARD RAMÓN "JHOAN" IN ROOM TO ASSIST PT TO USE URINAL TO VOID 200 ML YELLOW URINE. NO FURTHER NEEDS AT THIS TIME. CALL LIGHT IN REACH.
--- NOTE | 2022-03-22 07:05 | NUR ---
PT IN BED. PT ASSISTED TO CHAIR W 1 PA W FWW. PT GIVEN WARM BLANKETS AND WARM WASH CLOTH FOR FACE. BED MADE.NO NEEDS. CALL LIGHT WITHIN REACH.
--- NOTE | 2022-03-22 07:15 | NUR ---
REPORT RECEIVED FROM BRIANNA WALTON. PT SITTING UP IN CHAIR. WITH EYES CLOSED. RR EVEN AND UNLABORED. NO NEEDS IDENTIFIED AT THIS TIME.
--- NOTE | 2022-03-22 08:51 | NUR ---
IN TO ADMINISTER MEDICATIONS. PT SITTING UP IN CHAIR WITH MEAL ON TRAY. PT TAKES PO MEDICATIONS WITH NO ISSUES. ASSESSMENT COMPLETE. PT A&O TO SELF. PT FOLLOWS DIRECTIONS WELL. PT USES URINAL WITH ASSISTANCE. VITALS AND I&O COMPLETE STEPHANIE CARABALLO IN ROOM.
--- NOTE | 2022-03-22 09:54 | NUR ---
PT ROUNDING. PT RECLINED IN CHAIR WITH EYES CLOSED. RR EVEN AND UNLABORED. NO NEEDS IDENTIFIED AT THIS TIME. CALL LIGHT IN REACH.
--- NOTE | 2022-03-22 11:45 | NUR ---
PT SITTING UP IN CHAIR WITH EYES CLOSED. RR EVEN AND UNLABORED. NO NEEDS IDENTIFIED AT THIS TIME. CALL LIGHT IN REACH.
--- NOTE | 2022-03-22 13:38 | NUR ---
IN ROOM TO ADMINISTER MEDICATION. PT REQUESTING TO WALK AROUND. BRIANNA KEENE IN ROOM TO ASSIST WITH TALKING. 2PA WITH FWW 1 LAP AROUND UNIT. PHYSICAL THERAPY IN TO WORK WITH PT. NO OTHER NEEDS FROM THIS RN AT THIS TIME.
--- NOTE | 2022-03-22 14:15 | NUR ---
Pt fidgeting in chair and standing up continuously. Pt up walking in hallway with 1PA and FWW. Pt able to read signs in hallway such as "housekeeping" and "nourishment, staff only" when visualized from right side. Pt follows cues well.
--- NOTE | 2022-03-22 14:40 | NUR ---
Pt up walking in hallway with staff. Tolerates laps around [place]. Provided cold drink and blanket for patient once back in chair.
--- NOTE | 2022-03-22 15:10 | NUR ---
Pt calling out for nurse, requests to walk in hallway, up with staff. Assistance with using urinal.
--- NOTE | 2022-03-22 15:47 | NUR ---
Texted Myra from [facility] to check if any decisions had been made about placement for Javi. Called [facility] in [place] and requested they reassess this pt. Called and spoke with [facility] community services coordinator in our area and she will review his chart again. States she will be in [place] tomorrow and will be able to assess this pt around 11:00. Called Josse Caballero [employer] Operatorpsychological operations officer for [facility], he had called last and was planning on checking beds in his entire area. Also planned on checking if [facility] in [place] could take another medicaid pt at this time. He was not in and I left a message.
--- NOTE | 2022-03-22 15:48 | NUR ---
ASSESSMENT COMPLETE. PT APPEARS ANXIOUS AND WANTING TO GET UP OUT OF CHAIR AND WALK AROUND. STEPHANIE CARABALLO WALKING PT AROUND MED/SURG UNIT. PT TOLERATES NUMEROUS LAPS IN THE [place]. NO OTHER NEEDS FROM THIS RN AT THIS TIME.
--- NOTE | 2022-03-22 15:57 | NUR ---
Patient up walking with staff. Pt states feeling "like I've gotta get out of here". Staff reassures patient and walks with him in hallway.
--- NOTE | 2022-03-22 16:05 | NUR ---
Pt up walking in hallway with Cass REED. Pt back to room and with Angela BROWN.
--- NOTE | 2022-03-22 16:45 | NUR ---
Pt states "I'm anxious" and wants to walk in hallway, declines sitting down in room. Discussed patient anxiety with Dr Spencer, 1x dose ativan received and verified. Pt takes pill with no issues.
--- NOTE | 2022-03-22 17:52 | NUR ---
IN TO ADMINISTER MEDICATIONS. STEPHANIE HAYS IN ROOM ONE ON ONE WITH PT. PT SITTING IN CHAIR. PT TAKES PO MEDICATIONS WITH NO ISSUES. NO OTHER NEEDS FROM THIS RN AT THIS TIME. CALL LIGHT IN REACH.
--- NOTE | 2022-03-22 18:19 | NUR ---
VS and I/Os complete, pt asks for second dinner, denies ABD pain or nausea. IV ABX infusing WNL. Pt has no further needs at this time, on facetime with family members. call light in reach.
--- NOTE | 2022-03-22 19:34 | NUR ---
REPORT RECEIVED FROM DAY SHIFT RN. PT SITTING IN RECLINER WITH EYES CLOSED. 2PA TO BED WITH FWW. PT COOPERATIVE AND PARTICIPATES WITH CARES. DENIES FURTHER NEEDS. WHITE BOARD UPDATED. CALL LIGHT IN REACH. BED ALARM FOR SAFETY.
--- NOTE | 2022-03-22 23:29 | NUR ---
PT RESTING IN BED WITH EYES CLOSED. RESPIRATIONS EVEN. BED ALARM ON. PT IN VIEW OF NURSES STATION.
--- NOTE | 2022-03-23 00:16 | NUR ---
SPOT CHECK SpO2 MID 90'S ON RA. HR 70'S.
--- NOTE | 2022-03-23 02:50 | NUR ---
PT RESTING IN BED. EYES CLOSED. RESPIRATIONS EVEN. BED ALARM FOR SAFETY. PT IN VIEW OF NURSES STATION.
--- NOTE | 2022-03-23 03:38 | NUR ---
BED ALARM SOUNDING. IN ROOM TO ASSIST PT TO USE URINAL TO VOID 100 ML CLEAR YELLOW URINE. INCONTINENT OF URINE WELL. NAHUN CARE DONE. CLEAN BRIEF PLACED. PT ABLE TO PARTICIPATE WITH CARES AND FOLLOW DIRECTIONS. REPORTS HE IS RESTING WELL, STATES "IT MUST HAVE BEEN ALL THAT WALKING YESTERDAY." ASSISTED TO REPOSITION. NO FURTHER NEEDS. BED ALARM FOR SAFETY.
--- NOTE | 2022-03-23 04:32 | NUR ---
SBA WITH FWW TO STAND AT SIDE OF BED TO VOID. BACK TO BED. PT REPORTS 6/10 BACK/HEADACHE PAIN. PRN FOR PAIN ADMIN PER EMAR. VS AND I&O COMPLETE. NO FURTHER NEEDS AT THIS TIME. BED ALARM FOR SAFETY.
--- NOTE | 2022-03-23 07:05 | NUR ---
REPORT RECEIVED FROM BRIANNA WALTON. PT LAYING IN BED WITH EYES CLOSED. BED ALARM ON. RR EVEN AND UNLABORED. NO NEEDS IDENTIFIED AT THIS TIME. CALL LIGHT IN REACH.
--- NOTE | 2022-03-23 09:33 | NUR ---
PT ROUNDING. PT LAYING IN BED WITH EYES CLOSED. RR EVEN AND UNLABORED. NO NEEDS IDENTIFIED AT THIS TIME. BED ALARM ON. CALL LIGHT IN REACH.
--- NOTE | 2022-03-23 09:47 | NUR ---
IN TO ADMINISTER MEDICATIONS, SEE MAR. PT LAYING IN BED WITH EYES CLOSED. PT AWAKENS WHEN ADDRESSED, THEN CLOSES EYES AGAIN. ASSESSMENT COMPLETE. PT UNABLE TO STATE LEVEL OF PAIN BUT STATES "I BETTER HAVE ONE" WHEN ASKED ABOUT PAIN AND PAIN MEDICATION. PAIN MEDICATION GIVEN, SEE MAR.
--- NOTE | 2022-03-23 12:21 | NUR ---
PT ROUNDING. PT SITTING UP IN RECLINER WITH LEGS ELEVATED. PTs EYES CLOSED. RR EVEN AND UNLABORED. NO NEEDS IDENTIFIED AT THIS TIME. CHAIR ALARM ON. CALL LIGHT IN REACH.
--- NOTE | 2022-03-23 12:36 | NUR ---
IN ROOM TO ADMINISTER MEDICATION, SEE MAR. PT SITTING UP IN CHAIR WITH MEAL TRAY. PT STATES "IT WOULD BE A GOOD IDEA TO TAKE IT" REGARDING PAIN MEDICATION. PT TAKES PO MEDICATION WITH NO ISSUES. PT REQESTING MORE WATER, WATER PROVIDED. NO OTHER NEEDS AT THIS TIME. CHAIR ALARM ON. CALL LIGHT IN REACH.
--- NOTE | 2022-03-23 12:50 | NUR ---
FAMILY FRIEND IN ROOM REPORTING TO THIS RN THAT PT NEEDS TO USE THE BR. IN TO ASSIST PT FROM CHAIR TO COMMODE WITH FWW AND BACK TO CHAIR. BM NOTED. TOILETING COMPLETE. PT SITTING IN CHAIR WITH CHAIR ALARM ON. NO OTHER NEEDS AT THIS TIME. CALL LIGHT IN REACH.
--- NOTE | 2022-03-23 15:00 | NUR ---
Called Marie from [facility] as she did not arrive to see pt today. She has a mix up with her schedule and will be here tomorrow at 3 pm. Nurses updated. I have not received a reply to my texts or calls to [facility] [facility]. I also spoke with [facility] yesterday, I did not recieve a reply from their RN, but she has been out sick.
--- NOTE | 2022-03-23 15:17 | NUR ---
PT CALLING FROM ROOM. PT STATES "I NEED TO PEE." URINAL PROVIDED. PT SITTING UP IN CHAIR. ASSESSMENT COMPLETE. RIGHT PUPIL SLUGGISH IN REACTION TO LIGHT. LEFT PUPIL SLUGGISH IN REACTION TO LIGHT. NO OTHER NEEDS AT THIS TIME. CALL LIGHT IN REACH. CHAIR ALARM ON. FAMILY IN THE ROOM.
--- NOTE | 2022-03-23 16:13 | NUR ---
PT REQUESTING BARRIER CREAM ON BUTTOCKS, BARRIER CREAM APPLIED. CHAIR ALARM ON. PT LAYING IN CHAIR WITH LEGS ELEVATED ON RECLINER. NO OTHER NEEDS AT THIS TIME. CALL LIGHT IN REACH.
--- NOTE | 2022-03-23 17:18 | NUR ---
IN TO ASSIST PT WITH TOILETING. PT SITTING UP IN CHAIR REQUESTING TO USE COMMODE. 1 PA WITH FWW FROM CHAIR TO COMMODE AND BACK TO CHAIR. CHAIR ALARM ON. CALL LIGHT IN REACH. NO OTHER NEEDS AT THIS TIME.
--- NOTE | 2022-03-23 17:45 | NUR ---
PT IN CHAIR. VITALS AND IS AND OS COMPLETE. NO NEEDS. CALL LIGHT WITHIN REACH.
--- NOTE | 2022-03-23 17:51 | NUR ---
IN TO ADMINISTER MEDICATIONS. PT SITTING UP IN CHAIR. PT TAKES PO MEDICATIONS WITH NO ISSUES. PT REPORTS "I SHOULD TAKE MY PAIN PILL SO I DO NOT GET BEHIND AND GET PAIN." PT UNABLE TO STATE PAIN LEVEL. MEDICATIONS ADMINISTERED, SEE MAR. NO OTHER NEEDS AT THIS TIME. CALL LIGHT IN REACH. CHAIR ALARM ON.
--- NOTE | 2022-03-23 18:19 | NUR ---
PT STATES "I AM FEELING ANXIOUS." PT REQUESTING ANXIETY MEDICATION, PRN MEDICATION ADMINISTERED, SEE MAR. PT SITTING UP IN CHAIR. NO OTHER NEEDS AT THIS TIME. CALL LIGHT IN REACH. CHAIR ALARM ON.
--- NOTE | 2022-03-23 20:35 | NUR ---
PT IN CHAIR, HOWLERED SEVERAL TIMES, MORE PLEASANT, USING CALL LIGHT. IN CHAIR, LEGS ELEVATED, COOPERATIVE WITH VITALS AND ASSESSMENT. EDEMA TO LE, LEVATED, TOLERATING LIQUIDS WELL. FOLLOWING INSTRUCTIONS AT THIS TIME. CALL LIGHT AND FLUIDSA T HADS REACH, CHAIR ALARM IN PLACE, FALL PRECAUTIONS
--- NOTE | 2022-03-23 22:25 | NUR ---
IN GERICHAIR, LEGS ELEVATED, COMOFRTABLE, USED CALL LIGHT, USED URINAL, CALM, FOLLOWS INSTRUCTIONS. CALL LIHGT AT HANDS REACH
--- NOTE | 2022-03-23 22:43 | NUR ---
WENT IN TO THE ROOM TO CHECK PATIENT AND TELL THAT IT IS TIME TO GO TO BED FOR HIM TO BE COMFORTABLE. PATIENT STATED " I AM MORE COMFORTABLE HERE IN CHAIR". TOLD PATIENT TO CALL US WHEN HE IS READY TO BED OR NEEDS SOMETHING. PATIENT AGREE. PATIENT WANTED TO HAVE MORE ROOM LIGHTS ON STATED "SO I CAN SEE BETTER".
--- NOTE | 2022-03-23 22:56 | NUR ---
PATIENT YELL "NURSE". WENT IN TO THE ROOM. ASSISTED IN USING THE URINAL. PATIENT STATED " I NEED A BIG FLASHLIGHT BIG MY ASS SO I CAN SEE". PATIENT IS STILL UP IN THE CHAIR.
--- NOTE | 2022-03-23 23:15 | NUR ---
C/O BACK PAIN, IN CHAIR, DECLINESE TO GO BACK TO BED, LEG ELEVATED. MEDICATED WITH PRN NORCO 1 TAB
--- NOTE | 2022-03-23 23:46 | NUR ---
pt up in chair, legs elevated, calm, was medicated earlier with 1 norco c/o back and hip pain. eyes closed, no distress, call light and fluids at hands reach
--- NOTE | 2022-03-24 00:18 | NUR ---
ASSISTED USING THE URINAL. PATIENT IS IN BED NOW. BED ALARM ON FOR SAFETY.
--- NOTE | 2022-03-24 00:50 | NUR ---
PT RESTLESS, IN-OUT OF BED, ALRMS GOING OFF, BACK TO CHAIR, LEGS ELEVATED, COOPERATIVE. ALARMS ON
--- NOTE | 2022-03-24 03:13 | NUR ---
ASSISTED IN USING THE URINAL. PATIENT STILL UP IN THE CHAIR. ALARM ON.
--- NOTE | 2022-03-24 04:13 | NUR ---
AWAKE, IN CHAIR, ALRM ON, STANDS UP AND GOES DOWN, TOOK OFF CLOTHES, BACK ON. MOVING AROUNF IN CHAIT. USES CALL LIGHT. RECEIVED VITARIL EARLIER, NOT EFFECTIVE. HAS VOIDED USING URINAL.
--- NOTE | 2022-03-24 04:44 | NUR ---
pt currently in bed, eyes closed, fidgetty hands. bed alrm on. Has been in-out of chair and bed multiple times this shift. was able to undo break in chair and was moving aroing like a corrousel, up to br and voided small amounts fo dark yellow urine usinsg urinal, was incontinent x1, clean attends in place. no iv site, tolerating liquids well, received [place] x1 per back andn generalized pain effective, received Vistaril for fidgettiness and anxiety, not effective. redirectable, calm, uses call light at times, otherwise he howlers, clear speech, alert to self. chair and bed alarms, fall precautions.
--- NOTE | 2022-03-24 07:16 | NUR ---
REPORT RECEIVED FROM BRIANNA VALERA. PT RESTING IN BED WITH EYES CLOSED, RESPIRATIONS EVEN AND UNLABORED. HEAD OF BED ELEVATED TO 10 DEGREES. BED RAILS UP. BED ALARM ON. CALL LIGHT WITHIN REACH. PT ALLOWED TO REST.
--- NOTE | 2022-03-24 08:24 | NUR ---
MORNING ASSESSMENT AND MEDICATION. PT CONTINUES RESTING IN BED WITH EYES CLOSED. PT REPSONDS TO VOICE. PT ANSWERING QUESTIONS APPROPIRATLY. PT DENIES PAIN AND NAUSEA. PT ALERT AND OREINTED TODAY TO SELF, TOWN (BUT NOT HOSPTIAL STAY), AND STATES "I HAD A STROKE" WHEN ASKED WHY HE IS AT THE HOSPITAL. PT HAS TROUBLE KEEPING EYES OPEN. PUPILS UNCHANGED. STRONG BILATERAL SIMULATION EDUCATOR STRENTH NOTED, STRONG PLANTAR AND DORSI FELXION NOTED. PT FOLLOWS MOST DIRECTIONS AT THIS TIME. 1 PERSON ASSIST FOR QUING AND DIRECTIONS WITH FWW UP TO CHAIR. PT VOIDS IN URINAL. NAHUN CARE DONE. DEPENDS SATURATED, DEPENDS CHANGED. PT ALSO DRESSED IN PANTS PER HIS REQUEST. LUNG SOUNDS CLEAR, HEART TONES REGULAR. NO REDNESS NOTED AT THIS TIME OVER COCCYX, BUTTOCKS, OR GULTEAL AREAS. PT UP TO CHAIR, FEEDING SELF BREAKFAST. NO ADDITONAL REQUESTS OR COMPLAINTS. CALL LIGHT WITHIN REACH. CHAIR ALARM ON.
--- NOTE | 2022-03-24 08:31 | NUR ---
Called and left a message with Clementine Brown from [facility]. Asked if they could give us a yes or no on accepting this pt. They have been difficult to reach and poor to respond.
--- NOTE | 2022-03-24 09:18 | NUR ---
Entered room and awoke patient to perfom head-to-toe assessment,administer medications, and initiate breakfast. Patient was asleep with unlabored breathing and responded to verbal stimulation. Patient requested to use the urinal and voided 200ml X1 depends while lying down. Patient expressed desire to eat breakfast. Patient sat up in bed while depends were changed and pants were put on. Quoc-care was performed using quoc-wipes and skin was clean, intact, dry, no signs of bleeding or redness, or with open wounds. Patient used walker to ambulate to the chair and chair alarm was activated. Patient began drinking milk and eating breakfast sandwhich. Assigned morning medications were given and patient took medications orally with milk with no issues. Vital signs were taken. Patient was given the call light within reach.
--- NOTE | 2022-03-24 09:38 | NUR ---
NOTED THAT PTS FLOW MAX WAS GIVEN EARLY. NO EMAR ALARM NOTED STATING MEDICAITON WAS EARLY. PHARMACIST NOTIFED, NO CONCERNS. DR. CANTRELL NOTIFIED, NO CONCERNS OR NEW ORDERS. PT CONTINUES RESTING IN CHAIR WITH EYES CLOSED. RESPIRATIONS EVEN AND UNLABORED. CALL LIGHT WITHIN REACH. CHAIR ALARM ON.
--- NOTE | 2022-03-24 10:06 | NUR ---
Patient ate about 60% of breakfast and 100mL of fluids. Warm blanekts were provided per request. Chair alrm is on with call light within reach. No other needs at this time.
--- NOTE | 2022-03-24 10:35 | NUR ---
ELMER ROUNDING: THIS RN TO ROOM TO CHECK ON PT. PT RESTING IN RECLINER WITH EYES CLOSED. RESPIRATIONS EVEN AND UNLABORED. CALL LIGHT WITHIN REACH. PT ALLOWED TO REST.
--- NOTE | 2022-03-24 10:45 | NUR ---
Notified by staff, Elen from [facility], visit Javi today. She did not speak with any of the staff or request to speak with me. I will call and request info this afternoon.
--- NOTE | 2022-03-24 11:18 | NUR ---
CHILANGO FROM [facility] ARRIVED TO VISIT WITH PT. PT REMAINS UP TO SHOWER WITH SALES ASSISTANT AND STUDENT NURSE. CHILANGO STATES SHE WILL CRYSTAL 10 MINUTES FOR PT TO FINISH. NO ADDITIONAL NEEDS AT THIS TIME.
--- NOTE | 2022-03-24 11:41 | NUR ---
Patient was given a shower, clean clothes, new depends, and re-seated with chair alarm activated. Patient voided X1 depends upon standing and stated they had an upset stomach and felt nauseaous. Reported to primary nurse who verbalized to reasses patient's complaints of upset stomach and offer zofran. Patient refused zofran and requested diet coke. Primary nurse verbalized okay. Call light is within reach. No other requests at this time.
--- NOTE | 2022-03-24 12:00 | NUR ---
MELANIE, FROM [employer], FINISHED VISITING WITH PT. PT ANSWERING QUESTIONS APPROPIRATLY AND IS ABLE TO CORRECT THIS RN WHEN STATED THAT PT HAS 2 SON'S PT STATES "NO I HAVE ONE SON AND THE OTHER VISITOR I GET IS JUST A REALLY GOOD FRIEND." PT REQUESTS "CREAM" BE APPLIED TO GLUTEAL AREA. PT UP TO STAND WITH SBA PERSON ASSIST AND FWW UP TO STAND. CREAM APPLIED, DRY SKIN NOTED, NO WOUNDS OR REDNESS NOTED. PT BACK TO CHAIR, REPORTS HE WOULD LIKE TO REST. CALL LIGHT WITHIN REACH. CHAIR ALARM ON.
--- NOTE | 2022-03-24 12:45 | NUR ---
HOULRY ROUNDING: PT RESTING IN CHAIR WITH EYES CLOSED. LUNCH AT BEDSIDE. PT APPEARS TO HAVE EATEN SMALL MAOUNTS. PT ALLOWED TO REST. CALL LIGHT WIHTIN REACH. CHAIR ALARM ON.
--- NOTE | 2022-03-24 13:34 | NUR ---
AFTERNOON ASSESSMENT AND MEDICATION DUE. PT REAMINS UP TO CHAIR. PT ALERT AND OREINTED TO SELF, PLACE, TOWN, REASON FOR HOSPITAL STAY, AND MONTH. PT RESPONDING TO QUESTIONS APPROPIRATLY. PT REPORTS "JUST THE USUAL" PAIN. PT UNABLE TO RATE PAIN, 2/10 FLACC SCORE NOTED. PT ABLE TO COOPERATE WITH ASSISESSMENT. PT EVEN ABLE TO STATES HE CAN SEE "A LITTLE BIT, THE SHADOWS" OUT OF HIS EYES. PT UNABLE TO IDENTIFY NUMBER OF FINGERS HELD UP IN FRONT WITH BOTH EYES OPEN. PT UP TO STAND AND USE URINAL WITH STAND BY ASSIST AND FWW. PT VOIDS 100ML DARK YELLOW URIN. PO FLUIDS ENCOAURGED. PT REQEUSTS SODA, 7-UP PROVIDED. NAHUN CARE DONE, BARRIER CERAM APPLIED TO BUTTOCKS. PT DENIES ADDITIONAL REQUESTS OR COMPLAINTS. CALL LIGHT WITHIN REACH. CHAIR ALARM ON.
--- NOTE | 2022-03-24 14:46 | NUR ---
HOURLY ROUDING: PT UP TO BEDSIDE COMODE WITH PHYSICAL THERAPY. PT HAS LARGE BROWN SOFT BOWEL MOVEMENT. NAHUN CARE DONE. BARRIER CREAM APPLIED. STAND BY ASSSIT WITH FWW BACK TO CHAIR. PT TALKING [facility] CASE MANAGEMENT FOR VIDEO CONFERENCE WITH CARE FACILITY. NO ADDITONAL NEEDS AT THIS TIME. CALL LIGHT WITHIN REACH. CHAIR ALARM ON.
--- NOTE | 2022-03-24 15:00 | NUR ---
Received a call from Marie from [facility]. She states she is still in [place] and would like to complete a call by zoom. To room and called Marie and she was able to evaluate Javi. Assessment went well and he was able to answer her questions, stand with a walker and walk a few steps. Nurse was in room and also answered questions. Marie's vp account director got on the phone and also asked questions. They are agreeable to take this pt next.
--- NOTE | 2022-03-24 15:30 | NUR ---
Received an voice mail from Clementine Brown from [facility] [employer]. They are considering taking this pt next week.
--- NOTE | 2022-03-24 15:40 | NUR ---
Spoke with Javi and he is fine going anywhere, with the understanding he return to [place] as soon as possible. Called and left a message for his step son, Hal and asked for his input.
--- NOTE | 2022-03-24 15:41 | NUR ---
PT TAKEN OUTSIDE FOR WHEELCHAIR RIDE. PT STATES HE ENJOY'S THE FRESH AIR AND SUN. PT RETURNED TO ROOM. DR. CANTRELL TO BEDSIDE TO VISIT WITH PT. PT REMAINS ORIENTED PREVISOULY STATED. PT CONTINUES TO HAVE DIFFICULTY SEEING, PT IS ABLE TO IDENTLY MOVMENT IN THE ROOM. PT DENEIS PAIN AT THIS TIME. FLACC SCORE OF 0/10. NO ADDITIONAL REQUESTS OR COMPLAINTS. CALL LIGHT WITHIN REACH. CHAIR ALARM ON. PT EATING COOKIES BROUGHT BY A FRIEND.
--- NOTE | 2022-03-24 15:56 | NUR ---
Patient was taken outside for fresh air and wrapped in warm blankets. Expressed glad to be outside and get fresh air but was ready to come back inside once he became cold. Patient sat back in chair with chair-alarm set. Patient was eating cookie from friends when visited by Provider to be assessed. Call light is within reach. No other needs at this time.
--- NOTE | 2022-03-24 16:15 | NUR ---
PTS FRIEND, DESTINY, ARRIVED TO VISIT WITH PT. DESTINY CONFIRMS THAT PT SEEMS "BETTER" TODAY AND MORE ORINETED. PT REMAINS UP TO CHAIR, VISITING WITH DESTINY. NO ADDITIONAL NEEDS. CALL LIGHT WITHIN REACH. CHAIR ALARM ON.
--- NOTE | 2022-03-24 16:17 | NUR ---
PT HERE FOR CVA AND AWAITING PLACEMENT. PT UP WITH STAND BY ASSIST AND FWW THIS SHIFT. PT NEEDS QUING HE IS UNABLE TO SEE BUT FOR OCCATIONAL MOVEMENT IN THE ROOM. PT TOLERATING REGULAR DIET WITH GOOD APPITITE AND FEEING SELF FINGER FOODS THIS SHIFT. PT ALERT TO SELF, MONTH, YEAR, PLACE, AND REASON FOR HOSPITAL STAY THIS SHIFT. PT VOIDING QUANTITY SUFFICIENT. PT SPENT TIME OUTSIDE THIS SHIFT. PT WORKING WITH PHYSICAL AND OCCUPATION THERAPY. PT REPORTS LOWER BACK PAIN INTERMITTANTLY THIS SHIFT, SCHEDULED PAIN MEDICATIONS GIVEN. PT DOES NOT USE CALL LIGHT. BED AND CHAIR ALARM FOR SAFETY.
--- NOTE | 2022-03-24 16:28 | NUR ---
PT GETTING UP OUT OF CHAIR, CHAIR ALARM SOUNDING. PT REPORTS NEED TO VOID AND IS UNABLE TO FIND URINAL. PT ASSISTED WITH URINAL. NAHUN CARE DONE. DEPENDS CHANGED. PT ASSISTED WITH SHAVING BY STUDENT NURSE PER PT REQUEST. NO ADDITIONAL NEEDS AT THIS TIME. CHAIR ALARM ON. CALL LIGHT WITHIN REACH.
--- NOTE | 2022-03-24 16:46 | NUR ---
SET PATIENT UP TO SHAVE, APPEARED TO BE ABLE TO PROVIDE SELF CARE, TOLERATING ACTIVITY WELL. RESTING BACK IN RECLINER, WITH FAMILY VISITING IN ROOM. PATIENT REQUESTED TO BE ABLE TO SHAVE AGAIN LATER. CALL LIGHT WITHIN REACH, NO OTHER NEEDS AT THIS TIME.
--- NOTE | 2022-03-24 17:25 | NUR ---
DINNER DELIVERED TO PT. PT REMAINS UP TO CHAIR. FINISHING VISIT WITH DESTINY. PT DENIES PAIN AND NAUSEA. PT DOES STATE "I NEED TO GET TO TOWN." PT EASILY REORIENTED AND REDIRECTED. PT FEEDING SELF FISH STRIPS, CHIPS AND [place]. PT DENIES ADDITIONAL REQEUSTS OR COMPLAINTS. CALL LIGHT WITHIN REACH. CHAIR ALARM ON.
--- NOTE | 2022-03-24 17:51 | NUR ---
I called and spoke with Marie and Josse again. Asked where they think they would place this pt as they have facilities all along [facility]. They currently have a medicaid bed open in [place]. They fully understand this pt wants to return to [place] as soon as possible and they will put him on the list for the next medicaid bed that opens. I let them know [facility] has also accepted him. I am concerned if he goes their, he will not get preferred treatment for the next open bed at [facility] in [place]. They both agreed he more than likely would not. If they other pts in their houses, they will get the bed first. Marie also states there is a very small chance they will have a bed open in [place] next week. She will let me know, but they already have a pt awaiting the bed, they are just waiting on the family to decide. If pt goes to [place] or [place], they will need 3 days of meds and would like meds electronically sent the their pharmacy [facility] in [facility]. I will follow up with Marie tomorrow.
--- NOTE | 2022-03-24 18:24 | NUR ---
MEDICATION DUE. PT FINISHED WITH DINNER. STAND BY ASSIST BACK TO BED AND TO CHANGE INTO NIGHT SHIRT. NAHUN CARE DONE. DEPENDS WET, CHANGED. MEDICATIONS GIVEN. PT REPORTS 11/05 HEADACHE, SEE MAR FOR MEDICATION GIVEN. NO ADDITIONAL NEEDS AT THIS TIME. BED RAILS UP. CALL LIGHT WITHIN REACH. BED ALARM ON.
--- NOTE | 2022-03-24 18:27 | NUR ---
Medications were given. Patient had a scant void in the urinal. Depends and night shirt was changed. Patient in bed with call light in reach. Lights turned down with fresh ice water at bedside. Pain scale 6/10 as a headache was reported. 1 tab of norco administered per JUL. No other needs at this time.
--- NOTE | 2022-03-24 18:37 | NUR ---
BED ALARM SOUNDING. PT REPORTS "I FEEL SHAKY AND LIKE THAT WORD THAT STARTS WITH A." PT ASKED IF HE IS ANXOUS AND STATES "YES." PT REQUESTS "THAT MEDICINE THEY GAVE ME LAST NIGHT." SEE MAR FOR MEDICATION GIVEN. PT ASSISTED BACK TO BED. NO ADDITIONAL NEEDS. BED ALARM ON. CALL LIGHT WIHTIN REACH. BED RAILS UP.
--- NOTE | 2022-03-24 19:27 | NUR ---
BED ALARM SOUNDING. PT REPORTS NEED TO VOID. PT ASSISTED WITH USING URINAL. PT STATES HE WANTS TO GET UP AND EAT HIS COOKIES. NAHUN CARE DONE. DEPENDS CHANGED. STAND BY ASSIST WITH FWW UP TO CHAIR. PT EATIGN COOKIES. CALL LIGHT WITHIN REACH. CHAIR ALARM ON.
--- NOTE | 2022-03-24 19:40 | NUR ---
PT IN CHAIR, CALM ALERT TO SELF AND SITUATIN AT THIS TIME, COOPERATIVE, ANSWERS APPROPRIATELY. LEGS ELEVATED, CHAIR ALARM IN PLACE. EATING COOKIES AND DRINKING WATER. CALL LIGHT AT HANDS REACH
--- NOTE | 2022-03-24 22:15 | NUR ---
PT GETING OUT OF THE CHAIR, IN TO CHECK ON PT, PT HAS GOWN OFF, ASSISTED TO THE TOILET, FWW, ASSISTED PT WITH SHIRT, BACK TO BAFELICITY
--- NOTE | 2022-03-25 00:36 | NUR ---
PT IN BED,, RESTING, EYES CLOSED, NO DISTRESS, ON ROOM AIR, CALL LIGHT AND FLUIDS AT BEDSIDE
--- NOTE | 2022-03-25 02:36 | NUR ---
RESTING, EYES CLOSED, NO DISTRESS, IN BED, ROOM AIR, CALL LIGHT AT HANDS REACH
--- NOTE | 2022-03-25 04:35 | NUR ---
Pt on room air, has been slep most of this shfit, was very reatless at begining of shift, taken for several walks around hallways, up in chair and bed in-out several times, bed chair alrms in plae, walked to br 1pa/fww, voided, easily redirectable, tolerating liquids well, no c/o pain this shift. Still waiting for placement, pt aware. uses call light.
--- NOTE | 2022-03-25 05:58 | NUR ---
awake, trying to get out of bed several times, reassured, reoriented, back to bed, bed alarm on. calm
--- NOTE | 2022-03-25 07:11 | NUR ---
REPORT RECEIVED FROM BRIANNA VALERA. PT UP TO CHAIR. PT REQUESTS WARM BLANKETS, PROVIDED. PT DENIES PAIN AND NAUSEA. NO ADDITIONAL REQUESTS OR COMPLAINTS. CALL LIGHT WITHIN REACH. CHAIR ALARM ON.
--- NOTE | 2022-03-25 08:23 | NUR ---
Pateient seems to be resting in chair with eyes closed and unlabored breathing. Another [facility] blanket was provided. Call light is within reach. Lights turned down. No other needs at this time.
--- NOTE | 2022-03-25 08:48 | NUR ---
MORNING ASSESSMENT AND MEDICATION DUE. PT REMAINS UP TO CHAIR, RESTING WITH EYES CLOSED. PT AWAKENS TO VOICE AND LIGHT TOUCH. REMAINS VERY DROWSY THROUGHOUT ASSESSMENT BUT IS ABLE TO ANSWER MOST QUESTIONS. PT REPORTS LOWER BACK PAIN BUT DOES NOT RATE PAIN, FLACC SCORE OF 1/10. SCHEDULED MEDICATION GIVEN. PT ORIENTED TO SELF, PLACE, REASON FOR HOSPITAL STAY AND MONTH. PT NEEDS ASSISTANCE WITH REMEMBERING YEAR AND TIME. PT COOPERATIVE AND RESPONDING APPROPRIALTY TO QUESTIONS. PT FOLLOWS DIRECTIONS. STRENGTH EQUAL BILATERALLY. VISION REMAINS IMPAIRED. PT UNABLE TO IDENTIFY NUMBER OF FINGERS HELD UP INFRONT OF EYES. PT ALSO UNABLE TO IDENTFY MOVEMENT AT THIS TIME. PT STATES "ITS' HARD" TO KEEP HIS EYES OPEN. HEAR TONES REMAIN REGULAR. LUNG SOUNDS CLEAR. ABDOMEN SOFT AND NON TENDER. BOWEL TONES ACTIVE. PT EATIGN BREAKFAST, ABLE TO FEED SELF. NO ADDITIONAL REQUESTS OR COMPLAINTS. CALL LIGHT WITHIN REACH. CHAIR ALARM ON.
--- NOTE | 2022-03-25 09:30 | NUR ---
Morning medications administered. PT expressed an appetite and ate 95% of breakfast. Voided about 75mL into urinal. PT wearing fresh depends, quoc-care provided with barrier cream applied. PT in chair with chair-alarm on. Appears to be resting. Call light jesus krishnan. No other requests at this time.
--- NOTE | 2022-03-25 09:37 | NUR ---
ELMER ROUNDING: THIS RN TO ROOM TO CHECK ON PT. PT RESTING IN CHAIR WITH EYES CLOSED. RESPIRATIONS EVEN AND UNLABORED. BREAKFAST TRAY REMOVED. CHAIR ALARM PLACED. PT DOES NOT AWAKE WITH CARES. PT ALLOWED TO REST. CALL LIGHT WITHIN REACH.
--- NOTE | 2022-03-25 10:08 | NUR ---
HOULRY ROUNDING: PT CONTINUES RESTING IN CHAIR WITH EYES CLOSED. RESPIRATIONS EVEN AND UNLABORED. CALL LIGHT WITHIN REACH. CHAIR ALARM ON. NO ADDITIONAL NEEDS AT THIS TIME.
--- NOTE | 2022-03-25 10:30 | NUR ---
Spoke with Javi. No complaints. Let him know he may go to [place] or [place] with the plan to return to a bed at in [place].
--- NOTE | 2022-03-25 11:05 | NUR ---
PT FINISHED WITH PYSICAL THERAPY AND BACK TO ROOM. PT UP TO CHAIR. CONTINUES TO REPORT FEELING TIRED. WARM BLANKET PROVIDED. PT DENIES PAIN AND NAUSEA. NO ADDITIONAL REQUESTS OR COMPLAINTS. CALL LIGHT WITHIN REACH. CHAIR ALARM ON.
--- NOTE | 2022-03-25 12:20 | NUR ---
LUNCH ARRIVED. PT ASSISTED WITH EATING MASHED POTATOES GRAVEY AND GROUND BEEF. PT EXHIBITS GOOD APPITITE. PT CONTINUES TO DENY PAIN AND NAUSEA. NO ADDITIONAL NEEDS AT THIS TIME. CALL LIGHT WITHIN REACH. PROGRAMMING INTERN AT BEDSIDE WORKIGN WITH PT.
--- NOTE | 2022-03-25 13:01 | NUR ---
THIS RN TO ROOM TO CHECK ON PT. PT RESTING IN CHAIR WITH EYES CLOSED. PT RESPONDS TO VOICE BUT QUICKLY FALLS BACK TO SLEEP. PT DENIES PAIN AND NAUSEA. PT DENIES NEED TO USE THE RESTROOM. CALL LIGHT WITHIN REACH. PT ALLOWED TO REST.
--- NOTE | 2022-03-25 13:29 | NUR ---
PAIN MEDICATION DUE. THIS RN TO ROOM. PT RESTING WITH EYES CLOSED, RESPIRATIONS EVEN AND UNLABORED. PT AWAKENS TO VOICE AND LIGHT TOUCH. PT DENIES PAIN AND NAUSEA BUT STATES HE WANTS HIS PAIN PILL. PT SWALLOWS PAIN MEDICAITON WITHOUT ISSUE. CHECK CASHIER AT BEDSIDE WORKING WITH PT FOR VITAL SIGNS AND NAHUN CARE. NO ADDITIONAL NEEDS AT THIS TIME. CALL LIGHT WITHIN REACH. CHAIR ALARM ON.
--- NOTE | 2022-03-25 14:00 | NUR ---
Received a call from Marie from [facility]. She states [facility] and [facility] not [facility] to the [facility] until he has an extensive stay in [place] and documentation he does not have any behaviors. She is now stating they did not accept this pt and he declined admission. Discussed with Marie I was notified of this by several people and Ree the warehouse picker of [facility] what a lengthy stay would mean. I asked what had happened with the bed in [place]. She states she will call Nick to check if there is a possibilty to go there. I again stated the main goal is for pt to remain in our area if possible, if not, then for him to return to our area as soon as possible. Pt has many friends and would like to remain close to them. Marie will check with [place] [facility].
--- NOTE | 2022-03-25 14:15 | NUR ---
THIS RN TO ROOM TO CHECK ON PT. PT RESTING IN CHAIR WITH EYES CLOSED. PT AWAKENS TO VOICE. PT DENIES PAIN AND NAUSEA. PT DENIES REQUESTS OR COMPLAINTS. CALL LIGHT WITHIN REACH. CHAIR ALARM ON.
--- NOTE | 2022-03-25 14:30 | NUR ---
[facility]. He states he is on his way to [place] and would like to take Javi as an admit to [place] next week. Updated him to my call with Marie. 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 He and his son, Hal, have both stated this. Discussed the goal for this pt is to return to [place]. He states understanding. He will stop and see this pt today.
--- NOTE | 2022-03-25 14:45 | NUR ---
Notified pts son, Hal, is here from [place]. Jeramy Rn, CM, and myself went to room and introduced ourselves. Updated to the newest phone calls. First choice is [place] for now, they will accept [place], if pt can return in a timely manor. End goal is for pt to live in either [place] or [place].
--- NOTE | 2022-03-25 14:57 | NUR ---
AFTERNOON ASSESSMENT DUE. THIS RN TO ROOM. PT VISITING WITH HIS SON AMEYA. STAND BY ASSIST WITH FWW UP TO RESTROOM. PT VOIDS AND HAS A SMALL BROWN BOWEL MOVEMENT. NAHUN CARE DONE. DEPENDS CHANGED ( THEY WERE WET). BARRIER CREAM APPLIED TO BOTTOM. STAND BY ASSIST BACK TO CHAIR. PT DENEIS PAIN AND NAUSEA. PT ALERT AND OREINTED TO SELF, FAMILY, DAY OF THE WEEK, MONTH, YEAR AND REASON FOR HOSPITAL STAY. PT FOLLOWS DIRESCTIONS AND CARRIES CONVERSATION APPROPRIATLY. PT ABLE TO EXPRESS HIS WISHES. PT DOES NO KNOW EXACT DATE. HEART TONES REMAIN REGULAR. VISION REMAINS INPAIRED BUT PT IS ABLE TO IDENTIFY A MOVING HAND INFRONT OF HIS FACE. PT PREFERS BRIGHT LIGHTS. LIGHTS IN ROOM BRIGHTENED. PT VISISTING WITH HIS SON. DIET PEPSI PROVIDED PER PT REQUEST. NO ADDITIONAL NEEDS AT THIS TIME. CALL LIGHT WITHIN REACH. CHAIR ALARM ON.
--- NOTE | 2022-03-25 15:30 | NUR ---
Received a call from Nabil from [facility]. She states they can take this pt on Monday. UPdated we are awaiting to see if pt can be placed closer to [place]. Let her know I will call her Monday. She does not think the bed will be filled.
--- NOTE | 2022-03-25 15:47 | NUR ---
PT HERE FOR CVA, AWAITING PLACEMENT. PT UP WITH STAND BY ASSIST AND FWW THIS SHIFT TO CHAIR, RESTROOM AND WITH PHYSICAL THERAPY. PT TOLERATING REGULAR DIET WITH GOOD APPITITE. SCHEDULED PAIN MEDICATIONS GIVEN. PT OREINTED THIS SHIFT TO ALL BUT EXACT DATE AND TIME. PT FOLLOWS DIRECTIONS AND CARRIES ON CONVERSTAION THIS AFTERNOON, DROWSY IN THE MORNING. VISION LOSS UNCHANGED, PT ABLE TO SEE MOVEMENT AT TIMES. STRENGTH EQUAL BILATERALLY. FAMILY AT BEDSIDE THIS SHIFT. PT VOIDING QUANTITY SUFFICIENT THIS SHIFT. PT DOES NOT USE CALL LIGHT. CHAIR AND BED ALARM FOR SAFETY.
--- NOTE | 2022-03-25 16:16 | NUR ---
HOURLY ROUNDING: THIS RN TO ROOM TO CHECK ON PT. PT REMAINS UP TO CHAIR, VISITING WITH HIS SON AMEYA. PT DENIES PAIN AND NAUSEA. PT DENIES ADDITIONAL REQUESTS OR COMPLAINTS. CALL LIGHT WITHIN REACH.
--- NOTE | 2022-03-25 16:54 | NUR ---
Spoke with Marie from [facility]. She spoke with Blanche and Chelsey in [place] and they will see this pt on Monday. Updated progress note,PT and OT notes faxed to Marie to send to the [facility].
--- NOTE | 2022-03-25 17:37 | NUR ---
MEDICATION DUE. PT UP TO [facility], FEEDING SELF DINNER, FINGER FOODS. PT TAKES MEDICATION WITHOUT ISSUE. PT DENIES PAIN AND NAUSEA AT THIS TIME BUT STATES HE WOULD LIKE HIS PAIN MEDICATION. NO ADDITIONAL REQUESTS OR COMPLAINTS. CALL LIGHT WITHIN REACH. CHAIR ALARM ON.
--- NOTE | 2022-03-25 18:20 | NUR ---
PT CALL LIGHT ON. PT REPORTS HE FEELS LIKE HE IS NAUSEATED. NOTED THAT PT HAS FINISHED 300ML OF SODA. PT UP TO STAND AND HAS LARGE BURPS. PT REPORTS THIS HAS RESOLVED HIS NAUSEA. PT ENCORUAGED TO AMBULATE. PT AMBULATES WITH STAND BY ASSIST AND FWW X1 LAP IN [place]. PT BACK TO ROOM AND TO BED. PT RESTING ON LEFT SIDE, WITH EYES CLOSED. BED RAILS UP. CALL LIGHT WITHIN REACH. BED ALARM ON.
--- NOTE | 2022-03-25 19:25 | NUR ---
PT USED CALL LIGHT, UP TO BR 1PA/FWW, REDIRECTABLE, VOIDED IN TOILET, WAS INCONTINENT , ATTENDS AND CLOTHES CHANGED. COOPERATIVE
--- NOTE | 2022-03-25 19:30 | NUR ---
pt assisted to the toilet by nurse, pt assisted back to the chair, bm and void, new attends in place, pt set up with cell phone, no further needs at this time, chair alarm in place
--- NOTE | 2022-03-25 19:31 | NUR ---
RECEIVED REPORT FROM CHERELLE REED. PT RESTING IN BED AWAKE AND ALERT. CHERELLE REED IN ROOM PROVIDING ASSISTANCE TO PT W/USING CELL PHONE. CALL LIGHT WITHIN REACH, BED ALARM ON, NO FURTHER NEEDS AT THIS TIME.
--- NOTE | 2022-03-25 20:37 | NUR ---
pt HEARD CALLING OUT FOR HELP, IN ROOM TO ASSIST. pt AWAKE AND RESTING IN CHAIR, LISTENING TO MUSIC. ORIENTED pt TIME AND SURROUNDINGS, ASSISTANCE WITH USING CALL LIGHT PROVIDED. pt INTERACTIVE WITH ROADS AND PARKING LOTS SWEEPER OPERATOR AT THIS TIME AND TALKING ABOUT THE [place]LITO AND HIS HORSE ANCHOR. CONVERSATION WNL AND APPROPRIATE. NO FURTHER NEEDS, CALL LIGHT IN REACH AND pt IN VIEW OF RN STATION.
--- NOTE | 2022-03-25 20:45 | NUR ---
IN ROOM FOR PT ASSESSMENT. PT IS SITTING UP IN CHAIR A&O X4. PT STATES PAIN IS 6/10 ON BOTTOM. PILLOW IS OFFERED AND PLACED UNDERNEATH BOTTOM AND PT STATES HE IS MORE COMFORTABLE. LUNGS ARE CLEAR THROUGHOUT. PT ABLE TO AMBULATE WITH 1 PA W/FWW. PULSES ARE PRESENT THROUGHOUT, NO EDEMA PRESENT. REAR IS BLANCHABLE BUT SLIGHT REDNESS AT GLUTEAL AREA. PT IS WEAK AND GAIT IS UNSTEADY. REPORTS NO NAUSEA, DIZZINESS, CHEST PAIN, OR N/T IN EXTREMETIES. PT RESTING IN CHAIR, CHAIR ALARM ON, CALL LIGHT WITHIN REACH, NO FURTHER NEEDS AT THIS TIME.
--- NOTE | 2022-03-25 21:26 | NUR ---
pt AMBULATED IN HALLWAY WITH STEPHANIE ARANDA AND DID 1 LAP WITH 1PA WITH FWW. THIS RN FOLLOWED WITH WHEELCHAIR TO PROVIDE BREAKS PRN. pt TOLERATED WELL. DELIVERY CREW MEMBER IN ROOM WITH pt AND ASSISTING pt TO ROOM AND PREPARE FOR BED.
--- NOTE | 2022-03-25 21:30 | NUR ---
IN TO HELP PT WITH LAP IN THE HALLWAY, PT BACK TO BED, ALARM ON, NO FURTHER NEEDS AT THIS TIME
--- NOTE | 2022-03-25 22:00 | NUR ---
PT SAT UP, EOB, REAJUSTING PROVIDED, PT LAYING BACK IN BED, PROVIDED CALL LIGHT BEDSIDE TABLE, NO FURTHER NEEDS AT THIS TIME
--- NOTE | 2022-03-25 23:07 | NUR ---
IN BED C/O H/A AND LOW BACK PAIN, MEDICATED WITH VUSTARIL PER ANXIETY AND BACK PAIN 10/05, MEDICATED WITH 1 NORCO
--- NOTE | 2022-03-25 23:45 | NUR ---
IN TO ASSIST PT TO THE TOILET, VOID AND BM, SITTING ON THE EDGE OF THE BED, TURKEY SANDWICH BOX PROVIDED, PT ASSISTED WITH EATING AND DRINKING D/T VISUAL IMPAIRMENT, PT THEN LAYED BACK IN BED, ALARM ACTIVE, CALL LIGHT AT PTs SIDE
--- NOTE | 2022-03-26 01:00 | NUR ---
PT IN BED, EYES CLOSED, NO DISTRESS, ON ROOM AIR. CALL LIGHT AND FLUIDS AT BEDSIDE, BED ALRM ON
--- NOTE | 2022-03-26 02:38 | NUR ---
PT RESTING IN BED WITH EYES CLOSED. RESPIRATIONS ARE EVEN/UNLABORED, NO SIGNS OF DISTRESS. CALL LIGHT WITHIN REACH, BED ALARM ON.
--- NOTE | 2022-03-26 03:03 | NUR ---
pt resting, on room air, eyes closed, no distress, call light at hands reach, bed alarm on
--- NOTE | 2022-03-26 04:05 | NUR ---
pT RESTING, EYES CLOSED, NO DISTRESS, BED ALRM IN PLACE
--- NOTE | 2022-03-26 04:24 | NUR ---
THIS RN AND ROSI BROWN ANSWERED CALL LIGHT FOR ASSISTANCE WITH URINAL. BARRIER CREAM APPLIED TO GLUTEAL REGION, RED AND TENDER BUT BLANCHABLE. PT REPORTS IMPROVED PAIN THAT IS TOLERABLE AT 3/10. NEW DEPENDS IN PLACE. NO ACUTE CHANGES FROM PREVIOUS ASSESSMENT. PT RESTING IN BED WITH EYES CLOSED. VSS. WARM BLANKET AND DRINK OF DIET PEPSI PROVIDED. BED ALARM ON, CALL LIGHT WITHIN REACH, NO FURTHER NEEDS AT THIS TIME.
--- NOTE | 2022-03-26 06:26 | NUR ---
UNEVENTFUL NIGHT FOR PT. PT SLEPT MAJORITY OF THE NIGHT. PT COMPLAINED OF 6/10 GLUTEAL PAIN. SITE IS REDDENED BUT BLANCHABLE, BARRIER CREAM APPLIED X2. PRN NORCO GIVEN X1 FOR GLUTEAL PAIN, PRN VISTARIL GIVEN X1. PT ALERT AND ORIENTED TO ALL BUT DATE/TIME. PT WALKED SHORT AMOUNT IN HALLWAY WITH REMEDIATION PROJECT ENGINEER AND INTEGRATION MANAGER X1. PT AMBULATES TO BATHROOM W 1PA & FWW. PT ABLE TO MOVE SELF IN BED. VSS. NO MORNING LABS. URINE OUTPUT SUFFICIENT. USES CALL LIGHT APPROPRIATELY. PT AWAITING PLACEMENT.
--- NOTE | 2022-03-26 07:10 | NUR ---
REPORT RECEIVED FROM BRIANNA PARRISH. PT RESTING ON RIGHT SIDE IN BED WITH EYES CLOSED. PT FIGITING. PT AWAKENS AND TRIES TO GET OUT OF BED. RECAPPER AT BEDSIDE ASSISTING PT UP TO RESTROOM. PT DENIES PAIN AND NAUSEA. NO ADDITIONAL REQUESTS OR COMPLAINTS. CALL LIGHT WITHIN REACH.
--- NOTE | 2022-03-26 08:38 | NUR ---
MORNING ASSESSMENT AND MEDICATION DUE. PT UP TO CHAIR, RESTING WITH EYES CLOSED. PT AWAKENS TO VOICE AND LIGHT TOUCH. PT REPORTS 6/10 PAIN IN LOWER BACK. SEE MAR FOR MEDICATION GIVEN. PT ALERT AND OREINTED TO ALL BUT EXACT DATE AND TIME. PT RESPONDING TO QUESTIONS APPROPRIATLY AND CARRYING ON CONVERSATION. PT EXPRESSES NEEDS APPROPIRATLY. VISION REMAINS INPAIRED. PT UNABLE TO IDENTIFY NUMBER OF FINGRS HELD UP. PT ALSO UNABLE TO IDENTFY A MOVING HAND INFRONT OF HIM OR POINT OUT OBJECTS INT THE ROOM. PUPILS UNCHANGED. LUNG SOUNDS CLEAR. HEART TONES REGULAR. STRENGTH EQUAL BILATERALLY. PT EATING INDEPENDANTLY, BREAKFAST SANDWICH. ICE WATER AND SODA REFILLED. PT DENEIS ADDITIONAL REQUESTS OR COMPLAINTS. CALL LIGHT [place] REACH. CHAIR ALARM ON.
--- NOTE | 2022-03-26 08:58 | NUR ---
AROUND SHIFT CHANGE THIS MORNING PATIENT WANTED TO GET UP AND USE THE BEDSIDE COMMODE. THAN WE WENT TO THE CHAIR. CHAIR ALARM ON. ALSO GOT HIM TWO WARM BLANKETS. CHANGED BED LINENS.
--- NOTE | 2022-03-26 09:11 | NUR ---
PT CALLING OUT, REPORTS HE FEELS COLD. WARM BLANKETS PROVIDED. PT DENIES PAIN STATING LOWER BACK IS "FINE." PT RETURNS TO RESTING WITH EYES CLOSED. NO ADDITIONAL REQUESTS OR COMPLAINTS. CALL LIGHT WITHIN REACH. CHAIR ALARM ON.
--- NOTE | 2022-03-26 10:16 | NUR ---
PT CALLING OUT FOR ASSISTANCE. PT REPORTS HIS "BACKSIDE" HURTS AND HE WANTS "SOME SALVE." PT UP TO STAND WITH FWW AND STAND BY ASSIST. PT USES URINAL. NAHUN CARE DONE. BARRIER CREAM APPLIED TO BACK SIDE. EGG CRATE PAD APPLIED TO CHAIR WHICH PT STATES HELPS. NO ADDITIONAL REQUESTS OR COMPLAINTS. CALL LIGHT WITHIN REACH. CHAIR ALARM ON.
--- NOTE | 2022-03-26 11:25 | NUR ---
THIS RN TO ROOM TO CHECK ON PT. PT REMAINS UP TO CHAIR, FINISHED WITH PHYSICAL THERAPY. PT STATES WALKING FELT "GOOD." PT STATES EGG CRATE MAT ON CHAIR "REALLY HELPS" THE PAIN IN HIS BOTTOM. PT NOW DENIES ANY PAIN OR NASUEA. NO ADDITONAL REQUESTS OR COMPLAINTS. CHAIR ALARM ON. CALL LIGHT WITHIN REACH.
--- NOTE | 2022-03-26 12:08 | NUR ---
PT CALLING OUT FOR HELP. PT REPORTS HE NEEDS TO USE THE RESTROOM. STAND BY ASSIST WITH FWW UP TO RESTROOM. PT HAS LARGE SOFT BOWEL MOVEMENT. NAHUN CARE DONE. DEPENDS CLEAN. STAND BY ASSIST WITH FWW BACK TO CHAIR. LUNCH DELIVERED TO PT. PT REQUESTS ASSISTANCE WITH HIS SUSPENDERS. PT ASSISTED. PT FEEDING SELF LUNCH. PT DENIES PAIN AND NAUSEA. NO ADDITIONAL REQUESTS OR COMPLAINTS. CALL LIGHT WITHIN REACH.
--- NOTE | 2022-03-26 12:50 | NUR ---
MEDICATION DUE. THIS RN TO ROOM TO CHECK ON PT. PT REMAINS UP TO CHAIR. PT ASSISTED WITH OPENING PACKAGE OF COOKIES. PT RPEORTS 6 HEADACHE, SCHEDULED MEDICATION GIVEN. PT CONTINUES TO DENY PAIN TO "BACKSIDE" STATING THE "CUSION" IS HELPING." NO ADDITONAL REQUESTS OR COMPLAINTS. CALL LIGHT WITHIN REACH. CHAIR ALARM ON.
--- NOTE | 2022-03-26 13:48 | NUR ---
PT CALL LIGHT ON. PT REQUESTS A DRY CLOTH FOR HIS FACE, PROVIDED. PT DENEIS PAIN AND NAUSEA. PTS SON AMYEA AT BEDSIDE, UPDATED ON PLAN OF CARE AND PT STATUS. NO ADDITIONAL REQUESTS OR COMPLAINTS. CALL LIGHT WIHTIN REACH. CHAIR ALARM ON.
--- NOTE | 2022-03-26 14:45 | NUR ---
AFTERNOON ASSESSMENT DUE. THIS RN TO ROOM. PT UP TO CHAIR, LISTENING TO FOOTBALL GAME. PT REPORTS 4/10 HEADACHE, PT DENIES NEEED FOR INTERVENTIONS. PT DENIES NAUSEA. PT EATING CHICKEN NUGGETS BROUGHT BY HIS SON AMEYA. PT ALERT AND OREINTED TO ALL BUT EXACT DATE. VISION CONTINUES TO APPEAR IMPROVED. PT ABLE TO IDENTIFY THE WORD "ENSURE" ON THE BOTTLE WELL WHERE THE BOTTLE IS IN FRONT OF HIS FACE. PUPILS UNCHANGED. LUNG SOUNDS CLEAR. HEART TONES REGULAR. OCCATIONAL URGANCY INCONTINANCE NOTED. DEPENDS IN PLACE. PT REPORTS PAIN TO GLUTEAL AREA HAS RESOLVED WITH EGG CRATE PAD. STRENGTH EQUAL BILATERALLY. NO ADDITONAL REQUESTS OR COMPLAINTS. CALL LIGHT WITHIN REACH. CHAIR ALARM ON.
--- NOTE | 2022-03-26 14:50 | NUR ---
PATIENT'S SON CAME TO VISIT HIS DAD BEFORE GOING BACK HOME TODAY.
--- NOTE | 2022-03-26 15:40 | NUR ---
PT AGITATED, TAKING OFF HIS CLOTHES. PANTS ON THE FLOOR. SOCKS OFF. PT STATES "I WAS A LITTLE HOT." TIME OUTSIDE BY WHEELCHAIR RIDE OFFERED. PT AGREES. STAND BY ASSIST TO WHEELCHAIR AND PT TAKEN OUTSIDE FOR 20 MINUTES BY THIS RN. PT ENJOYS TIME OUTSIDE. PT RETURN TO ROOM CHEERFUL. STAND BY ASSIST BACK TO CHAIR. WARM BLANKETS PROVIDED. CALL LIGHT WITHIN REACH.
--- NOTE | 2022-03-26 16:37 | NUR ---
PT CONTINUES TO BE ANXIOUS. PT TRYING TO TAKE CLOTHES OFF AND STATES HE CAN'T SIT STILL OR CANT BREATH. OXYGEN SATURATION 100% ON ROOM AIR. RESPRIATIONS EVEN AND UNLABORED. PRN ANXIETY MEDICATION GIVEN. I.S. PROVIDED TO PT TO ENCORUAGE SLOW DEEP BREATHS. CHAIR ALARM ON. CALL LIGHT WITHIN REACH.
--- NOTE | 2022-03-26 16:53 | NUR ---
PT HERE FOR CVA AND AWAITING PLACEMENT. PT UP WITH STAND BY ASSIST AND FWW THIS SHIFT. PT NEEDS QUING HE IS UNABLE TO SEE BUT FOR OCCATIONAL MOVEMENT IN THE ROOM. PT ABLE TO READ SOME WORDS AT TIMES THIS SHIFT, VISION INCONSISTANT. PT TOLERATING REGULAR DIET WITH GOOD APPITITE AND FEEING SELF FINGER FOODS THIS SHIFT. PT ALERT AND OREINTED TO ALL BUT SPECIFIC DATE AND TIME, THIS SHIFT. PT VOIDING QUANTITY SUFFICIENT. PT SPENT TIME OUTSIDE THIS SHIFT. PT WORKING WITH PHYSICAL AND OCCUPATION THERAPY. PT REPORTS LOWER BACK PAIN INTERMITTANTLY THIS SHIFT, SCHEDULED PAIN MEDICATIONS GIVEN. EGG CRATE MATTRICE ADDED TO CHAIR FOR COMFORT WHICH HAS RESOLVED PAIN. PT ANXIOUS THIS EVENING, PRN ANXIETY MEDICATION GIVEN. PT DOES NOT USE CALL LIGHT. BED AND CHAIR ALARM FOR SAFETY.
--- NOTE | 2022-03-26 17:09 | NUR ---
PT CONTINUES TO BE VERY AGITATED. PT WILL NOT STAY SEATED OR WALKING. PT VERY UNSTEADY ON FEET AND TRYING TO MOVE AROUND ON HIS OWN. DR. CANTRELL CALLED AND STATES TO GIVE ONE TIME DOES OF 1MG LORAZAPAM, GIVEN ORDRED (SEE MAR). PT UP TO AMBULATE IN [place] WITH 2 PERSON ASSIST AND FWW FOR SAFETY. PT AMBULATES FOR 5 MINUTES. THEN BACK TO ROOM. PT CONTINUES TO BE AGIATED. 1:1 OBSERVATION TO BEDSIDE TO STAY WITH PT AND ASSIST WITH PT MOVEMENT. PT MOVING AROUND ROOM AND IN [place] WITH SECURITY. NO ADDITONAL NEEDS. 1:[address]
--- NOTE | 2022-03-26 18:08 | NUR ---
PT BEGINGIN TO CALM DOWN. NOT NEARLY RESTLESS. PT ATE ~25% OF DINNER. VITAL SIGNS STABLE. MEDICATIONS GIVEN. PT UP TO AMBULATE IN [place] X1 LAP WITH STEAM POWER PLANT OPERATOR AND SECURITY. PT FOLLOWING DIRECTIONS. NO ADDITIONAL NEEDS AT THIS TIME.
--- NOTE | 2022-03-26 18:39 | NUR ---
THIS RN TO ROOM TO CHECK ON PT. PT RESTING IN RECLINER WITH EYES CLOSED. RESPIRATIONS EVEN AND UNLABORED. CALL LIGHT IN PTS HANDS. PT ALLOWED TO REST. CHAIR ALARM ON.
--- NOTE | 2022-03-26 19:05 | NUR ---
RECEIVED REPORT FROM CHERELLE REED. PT IS RESTING IN CHAIR WITH EYES CLOSED. RESPIRATIONS ARE EVEN/UNLABORED, NO SIGN OF DISTRESS. CALL LIGHT IS WITHIN REACH, CHAIR ALARM ON.
--- NOTE | 2022-03-26 22:35 | NUR ---
PT RESTING IN CHAIR W/EGG CRATE. VSS. PT STATES NEED TO VOID, URINAL PROVIDED. PT DROWSY BUT ORIENTED TO ALL BUT DATE/TIME. NEW DEPENDS PROVIDED FOR SMALL AMOUNT OF INCONTINENCE, BARRIER CREAM APPLIED TO GLUTEAL AREA. SKIN IS TENDER, SLIGHTLY RED, BUT BLANCHEABLE. 1PA W/FWW TO BED, VISION IS VERY POOR. PT STATES NO PAIN, NAUSEA, N/T, DIZZINESS, OR CHEST PAIN. PT NOW RESTING IN BED WITH EYES CLOSED, WARM BLANKETS PROVIDED. CALL LIGHT WITHIN REACH, BED ALARM ON, NO FURTHER NEEDS AT THIS TIME.
--- NOTE | 2022-03-26 22:50 | NUR ---
IN WITH RN TO ASSIST PT TO THE BED, URINAL USED, NEW ATTENDS, VS DONE, BED ALARM IN PLACE
--- NOTE | 2022-03-27 01:23 | NUR ---
PT RESTING IN BED WITH EYES CLOSED. RESPIRATIONS ARE EVEN AND UNLABORED, NO SIGNS OF DISTRESS. CALL LIGHT WITHIN REACH, BED ALARM ON.
--- NOTE | 2022-03-27 03:47 | NUR ---
PT YELLED FROM BED THAT HE NEEDED TO PEE. ASSISTED PT W/USING URINAL AT BEDSIDE. PT DROWSY BUT AWAKENS TO VOICE. PT ABLE TO MOVE SELF IN BED. PT STATES PAIN 3/10, DOES NOT NEED MEDICATED PER PT & NO NAUSEA. NO ACUTE CHANGES FROM PREVIOUS ASSESSMENT. PT NOW RESTING WITH EYES CLOSED. BED ALARM ON, CALL LIGHT WITHIN REACH, NO FURTHER NEEDS AT THIS TIME.
--- NOTE | 2022-03-27 05:30 | NUR ---
UNEVENTFUL NIGHT FOR PT. PT SLEPT MAJORITY OF THE NIGHT.. GLUTEAL SITE IS REDDENED BUT BLANCHABLE, BARRIER CREAM APPLIED X1. PT ALERT AND ORIENTED TO ALL BUT DATE/TIME. PT USES BEDSIDE URINAL. NO BM. PT ABLE TO MOVE SELF IN BED. VSS. NO MORNING LABS. URINE OUTPUT SUFFICIENT. USES CALL LIGHT APPROPRIATELY. PT AWAITING PLACEMENT.
--- NOTE | 2022-03-27 07:06 | NUR ---
REPORT RECEIVED FROM BRIANNA PARRISH. PT CALLING FOR HELP. PT REPORTS HE WOULD LIKE TO GET UP TO THE CHAIR. PT ASSISTED WITH USING URINAL, VOIDS 150ML CLEAR YELLOW URINE. DEPENDS SATURATED. NAHUN CARE DONE, DEPENDS CHANGED. BARRIER CREAM APPLIED. STAND BY ASSIST WITH FWW UP TO CHAIR. PT POSITIONS SELF FOR COMFORT IN CHAIR. PT EATING GRAPES. ICE WATER AND SODA REFILLED. WARM BLANKET PROVIDED. PT DENIES ADDITIONAL REQUESTS OR COMPLAINTS. CALL LIGHT IN PTS HANDS. CHAIR ALARM ON.
--- NOTE | 2022-03-27 07:30 | NUR ---
MORNING ASSESSMENT. PT REMAINS UP TO CHAIR. AWAKE BUT DROWSY. PT DENIES PAIN AND NAUSEA AT THIS TIME. PT ALERT AND ORIENTED TO ALL BUT YEAR. PT ABLE TO STATES DATE AND MONTH. PT UNSURE OF EXACT TIME BUT NOTES "I CAN'T SEE SO I DONT' KNOW." VISION REMAINS UNCHANGED. PT ABLE TO SEE MOVEMENT AT TIMES, UNABLE TO IDENTFY FINGERS INFRONT OF EYES. PUPILS UNCHANGED. EQUAL DIVING BOARD ASSEMBLER STRENGTH BILATERALLY. STRONG PLANTAR AND DORSI FLEXION. HEART TONES REGULAR, LUNG SOUNDS CLEAR. PT DENIES PAIN IN HIS "BACKSIDE" AND CONTINUES TO STATE THE EGG CRATE CUSION HELPS. PT ANTICIPATING BRAKFAST. NO ADDITIONAL REQEUSTS OR COMPLAINTS. PT RETURNS TO RESTING WITH EYES CLOSED. MUSIC ON FOR COMFORT. CALL LIGHT WITHIN REACH. CHAIR ALARM ON.
--- NOTE | 2022-03-27 07:48 | NUR ---
PT RESTING IN CHAIR. CHAIR ALARM ON. WHITE BOARD UPDATED. CALL LIGHT IN REACH. NO FURTHER NEEDS AT THIS TIME.
--- NOTE | 2022-03-27 08:40 | NUR ---
MEDICATION DUE. THIS RN TO ROOM. PT REMAINS UP TO CHAIR. BREAKFAST AT BEDSIDE. PT RESTING WITH EYES CLOSED, AWAKENS TO VOICE. MEDICAITON GIVEN. PT ASSISTED WITH FINDING BREAKFAST ON TRAY. PT DENEIS PAIN AND NAUSEA BUT STATES HE WANTS HIS PAIN MEDICATION. NO ADDITONAL NEEDS AT THIS TIME. CALL LIGHT WITHIN REACH. CHAIR ALARM ON.
--- NOTE | 2022-03-27 09:29 | NUR ---
PT RESTING IN CHAIR. ICE WATER GIVEN. PT SPEAKS WHEN WOKEN UP. CALL LIGHT INREACH. CHAIR ALARM ON. CALL LIGHT IN REACH. NO FURTHER NEEDS AT THIS TIME.
--- NOTE | 2022-03-27 09:37 | NUR ---
THIS RN TO ROOM TO CHECK ON PT. PT RESTING IN CHAIR WITH EYES CLOSED, RESPRIATIONS EVEN AND UNLABORED. PT ALLOWED TO REST. CALL LIGHT WITHIN REACH. CHAIR FERNANDO COOPER.
--- NOTE | 2022-03-27 10:40 | NUR ---
ALEKS WEINBERG: THIS RN TO ROOM TO CHECK ON PT. PT REQUESTS ASSISTANCE UP TO RESTROOM. STAND BY ASSIST UP TO RESTROOM. PT HAS LARGE SOFT BROWN BOWEL MOVEMENT AND MISSED VOID. NAHUN CARE DONE. DEPENDS CHANGED. STAND BY ASSIST WITH FWW BACK TO CHAIR. PT POSISIONS SELF FOR COMFORT. PTS FAMILY AND FRIENDS ARRIVED TO VISIST. PT VISITNG WITH FRIENDS. NO ADDITIONAL REQUESTS OR COMPLAINTS. CALL LIGHT WITHIN REACH.
--- NOTE | 2022-03-27 11:30 | NUR ---
THIS RN TO ROOM TO CHECK ON PT. PT UP TO CHAIR, REQUESTS ASSISTANCE WITH CALLING FRIENDS. PT ASSISTED WITH USING PHONE. PT DENEIS PAIN AND NAUSEA. NO ADDITIONAL REQUESTS OR COMPLAINTS. CALL LIGHT WITHIN REACH. CHAIR ALARM ON.
--- NOTE | 2022-03-27 12:12 | NUR ---
LUNCH DELIVERED TO PT. PT ASSISTED WITH PREPARING HAMBUGER PER HIS LIKING. PT DENIES PAIN AND NAUSEA. PT FEEDING SELF. NO ADDITIONAL REQUESTS OR COMPLAINTS. CALL LIGHT WITHIN REACH. CHAIR ALARM ON.
--- NOTE | 2022-03-27 13:29 | NUR ---
AFTERNOON ASSESSMENT DUE. THIS RN TO ROOM. PT REMAINS UP TO CHAIR, RESTING WITH EYES CLOSED. PT AWAKENS TO VOICE. PT REPORTS 6/10 LOWER BACK AND HEADACHE PAIN. PT ASSISTED WITH REPOSITIONING IN CHAIR. PT DECLINES HEAT OR COOL PACK. PT OREINTED TO ALL BUT YEAR. PT FOLLOWING DIRECTIONS AND ABLE TO CARRY ON CONVERSATION APPORPRIATLY. PT REQUESTS A SNACK, PUDDING PROVIDED. VISION UNCHANGED. PT ABLE TO FIND WATER BOTTLES ON THE TABLE WITH LITTLE QUING. PT REMAINS UNABLE TO IDENTIFY FINGERS INFRONT OF FACE. PUPILS UNCHANGED. PT REMAINS UNSTEADY ON FEET BUT STANDS AND ABMULATES WITH STAND BY ASSIST AND FWW. EXTERIOR WORK HELPER, PLANTAR AND DORSI FELXION STRENGTH EQUAT BILATERALLY. SOUNDS REMAIN CLEAR. HEART TONES REGULAR. PT DENEIS GLUTEAL PAIN. BLANCHABEL REDNESS REMAINS. PT DENIES ADDITIONAL REQUESTS OR COMPLAINTS. CALL LIGHT IN PTS LAP. PT RETURNS TO RESTING WITH EYES CLOSED. RESPIRATIONS EVEN AND UNLABORED. CHAIR ALARM ON.
--- NOTE | 2022-03-27 14:46 | NUR ---
Assisted patient with eating ice cream. Pt alert and oriented. Sitting up in chair, has no needs, pleasant and cooperative.
--- NOTE | 2022-03-27 14:59 | NUR ---
THIS RN TO ROOM TO CHECK ON PT. 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 PT DENIES REQUESTS OR COMPLAINTS. CALL LIGHT WITHIN REACH.
--- NOTE | 2022-03-27 15:30 | NUR ---
PT TOOK A SHOWER WITH ASSISTANCE. CLEAN CLOTHES PUT ON AND PT NOW IN CHAIR RESTING. CALL LIGHT IN REACH. NO FURTHER NEEDS AT THIS TIME.
--- NOTE | 2022-03-27 15:42 | NUR ---
PT FINISHED WITH SHOWER AND UP TO CHAIR. PT CALL LIGHT ON. PT ASKS IF HE HAS "ANY PILLS TO TAKE." PT REOIENTED TO TIME AND EVENTS. PT VERBALIZES UNDERSTANDING AND STATES HE HAS NO ADDITIONAL REQUESTS OR COMPLIANTS. PT DENIES PAIN AND NAUSEA. CALL LIGHT IN PTS HANDS. CHAIR ALARM ON.
--- NOTE | 2022-03-27 15:54 | NUR ---
PT HERE FOR CVA AND AWAITING PLACEMENT. PT UP WITH STAND BY ASSIST AND FWW THIS SHIFT. PT NEEDS QUING HE IS UNABLE TO SEE BUT FOR OCCATIONAL MOVEMENT IN THE ROOM. SHOWER THIS SHIFT, PT ASSISTING WITH SHOWER. PT TOLERATING REGULAR DIET WITH GOOD APPITITE AND FEEING SELF FINGER FOODS THIS SHIFT. PT ALERT AND OREINTED TO ALL BUT YEAR THIS SHIFT. PT VOIDING QUANTITY SUFFICIENT. PT WORKING WITH PHYSICAL AND OCCUPATION THERAPY. PT REPORTS LOWER BACK PAIN INTERMITTANTLY THIS SHIFT, SCHEDULED PAIN MEDICATIONS GIVEN. JOCELINE MARTÍNEZ REMAINS ON CHAIR FOR COMFORT TO BACKSIDE. PT DOES NOT USE CALL LIGHT. BED AND CHAIR ALARM FOR SAFETY.
--- NOTE | 2022-03-27 16:30 | NUR ---
THIS RN TO ROOM TO CHECK ON PT. PT REMAINS UP TO CHAIR, RESTING WITH EYES CLOSED, RESPIRATIONS EVEN AND UNLABORED. CALL LIGHT WITHIN REACH. CHAIR ALARM ON. PT ALLOWED TO REST.
--- NOTE | 2022-03-27 17:30 | NUR ---
PT FINISHED WITH DINNER, ATE MOST OF HIS PIZZA. PT DENIES PAIN AND NAUSEA AND STATES HE IS FEELING TIRED. PT REMAINS UP TO CHAIR. NOW RESTING WITH EYES CLOSED. RESPIRATIONS EVEN AND UNLABORED. CALL LIGHT IN PTS HANDS.
--- NOTE | 2022-03-27 18:09 | NUR ---
MEDICATION DUE. STAND BY ASSIST UP TO RESTROOM. PT VOIDS AND HAS SMALL BOWEL MOVEMENT. NAHUN CARE DONE. DEPENDS DRY. STAND BY ASSIST WITH FWW BACK TO CHAIR. MEDICATION GIVEN (SEE MAR). PT DENIES PAIN OR NAUSEA BUT STATES HE WANTS HIS PAIN MEDICATION. WARM BLANKETS PROVIDED. PT SINGING ALONG TO MUSIC PLAYING ON TV. CALL LIGHT IN LEFT HAND. NO ADDITIONAL REQUESTS OR COMPLAINTS. CHAIR ALARM ON.
--- NOTE | 2022-03-27 20:09 | NUR ---
PATIENT UP IN RECLINER. FULL BODY ASSESEMENT DONE. NO ACUTE CHANGES. PATIENT APPEARS ALERT AND ORIENTED TO PERSON, TIME, AND PLACE. VSS WNL. PROVIDED EVENING SNACK. PATIENT CALLING APPROPRIATE, NO OTHER NEEDS AT THIS TIME. PATIENT REPORTS WILL CALL WHEN READY TO GO TO BED.
--- NOTE | 2022-03-27 21:06 | NUR ---
PT BACK IN ROOM, THIS RN, WITH GAIT BELT, FWW, AMBULATED PT AROUND THE [facility], COUPLE STOPS ALONG THE WAY, NOW IN CHAIR, ALARM PLACED, DRINK GIVEN.
--- NOTE | 2022-03-27 22:13 | NUR ---
accompanied patient ambulate around the hallway x1. patient is back in the chair.
--- NOTE | 2022-03-27 22:30 | NUR ---
PATIENT CALLING DERREK, REPORTS NO PAIN AT THIS TIME. STOOD TO USE URINAL, VOIDED 100 ML. REQUESTED TO STAY UP IN RECLINER FOR AWHILE BEFORE GOING TO BED. PROVIDED WARM BLANKETS. CALL LIGHT WITHIN REACH.
--- NOTE | 2022-03-27 23:26 | NUR ---
PATIENT APPEARS RESTLESS IN RECLINER, CONTINUING TO CALL OUT. ATTEMPTED TO CHANGE SHIRT INTO SCRUB TOP SECONDARY TO PATIENT WANTING TO HAVE PJ SHIRT O SLEEP IN. PATIENT ALSO REQUESTING TO ARRANGE A TRIP TO [facility] TO GET STUFF FOR WHEN HE LEAVES THE HOSPITAL, STATES " A LITTLE MARIEY TOLD ME I AM GETTING OUT OF HER IN A FEW DAYS, AND I DON'T HAVE SHIT" PATIENT ABLE TO BE REASSURED, PATIENT PUT BACK ON BUTTON UP SHIRT THAT HE WAS WEARING DURING THE DAY. ADMINISTERED VISTERAL PO PRN PER JUL. PATIENT THEN STOOD FROM CHAIR WITH WALKER AND DIRECTIONAL CUEING AMBULATED INTO BATHROOM AND USED TOILET. HAD BM AND VOIDED 100 ML OF URINE. APPEARED STEADY ON FEET AND APPEARS MOTIVATED TO BE INDEPENDANT. OFFERED HS CARE WITH BRUSHING TEETH, PATIENT REFUSED. TO BED PATIENT RESTING IN BED, BED ALARM ON. CALL LIGHT WITHIN REACH AND OTHER PERSONAL BELONGINGS, VERBALIZED LOCATION OF OBJECTS TO PATIENT.
--- NOTE | 2022-03-27 23:57 | NUR ---
ADMINISTERED NORCO PRN PO PER MAR. PATIENT SITTING AT EDGE OF BED, APPEARS RESTLESS. STATES " MY BACK IS GIVING ME HELL" RATES PAIN 6/10 ON PAIN SCALE. PROVIDED PATIENT SNACK TO TAKE WITH PAIN MEDICATION. PATIENT WITHIN VIEW FROM NURSES STATION.
--- NOTE | 2022-03-28 00:05 | NUR ---
PROVIDED WARM BLANKET. PATIENT RESTING BACK IN BED. BED ALARM ON. CALL LIGHT WITHIN REACH.
--- NOTE | 2022-03-28 03:23 | NUR ---
PT HOLLERED, NEEDED BATHROOM. FWW, CUEING TO TOILET, INCONT LARGE AMOUNT URINE, VOIDED WELL. BACK TO BED, DRINK GIVEN, COVERS, AND BEDALARM.
--- NOTE | 2022-03-28 06:38 | NUR ---
PATIENT STOOD AT BEDSIDE URSED URINAL, VOIDED 100 ML. ATTEMPTED TO GET PATIENT UP TO RECLINER, PATIENT DECLINED AND LAYED BACK IN BED. BED ALARM ON. VSS WNL. GOOD URINE OUTPUT. NO OTHER NEEDS AT THIS TIME. PATIENT APPEARED TO SLEEP WELL THROUGHOUT NIGHT.
--- NOTE | 2022-03-28 07:00 | NUR ---
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 no iv, eating and drinking well. last bm 03/27. pt vision still a problem - does well if he is explained tasks and directions first and not pushed or prodded to move. he does well if he can be given directions first of the task and cues like right and left. pt resting in now with chair alarm on.
--- NOTE | 2022-03-28 08:40 | NUR ---
Called Marie from [facility] and asked if they still plan on taking this pt and what the plan will be. She states plan is for pt to go to [facility] and then return when a bed opens in [place]. Le her know [facility] is holding a bed and I would like to know when they can accept this pt. Asked if pt could go tomorrow as he has remained in our hospital for 31 days. She states she will fax orders to us for placement and contact Josse from [facility].
--- NOTE | 2022-03-28 08:59 | NUR ---
PT IN , AWAKEN FOR PO MEDS, TOOK WELL WITH MILK. REPORTS HE IS COLD - WM BLKT ON. CONFUSED TO TIME/DATE BUT KNOWS WHERE WE ARE AT AND CITY. HE IS PLEASANT AND GREETS THIS RN FRIENDLY. ALARM ON.
--- NOTE | 2022-03-28 10:11 | NUR ---
rn in room per pt request to help him dial the phone, he is up in , reports pain in back 07/08. call light in [facility] - alarm on.
--- NOTE | 2022-03-28 11:12 | NUR ---
PATIENT CALLING,"NURSE!!!" THISA RN IN TO SEE PATIENT WHO NEEDS TO HAVE A BM. 1PA WITH FWW TO THE RESTROOM AND BACK TO THE BEDSIDE ARMCHAIR. PATIENT HAD A BM AND VOIDED. PATIENT BACK IN CHAIR WITH CHAIR ALARM ON. PATIENT HAS WASHED HIS HANDS AND HAS NO OTHER NURSE CARE NEEDS AT THIS TIME. CALL LIGHT IN REACH, BUT PATIENT CAN'T REMEMBER TO USE IT HE WILL JUST YELL WHEN HE NEEDS SOMETHING.
--- NOTE | 2022-03-28 13:00 | NUR ---
Called Hal, son, x 2 to check which facility he would prefer pt go to. Was able to reach on the second call and he would prefer [facility] in [place] with an option to return to [place]. I will notify [facility] we no longer need their bed. Called Nabil from [facility] and left a message thanking them for evaluating this pt and letting them know we no longer need the bed as son would like [facility].
--- NOTE | 2022-03-28 13:25 | NUR ---
PATIENT AMBULATED 1 LAP IN [facility], SBA FWW. PATIENT NOW IN CHAIR. VITALS AND I&O'S CHARTED. CALL LIGHT IN REACH. CHAIR ALARM ON. NO FURTHER NEEDS AT THIS TIME.
--- NOTE | 2022-03-28 13:25 | NUR ---
PATIENT AMBULATED 1 LAP IN [facility], SBA FWW. PATIENT NOW BACK TO CHAIR. VITALS AND I&O'S CHARTED. CALL LIGHT IN REACH. CHAIR ALARM ON. NO FURTHER NEEDS AT THIS TIME.
--- NOTE | 2022-03-28 14:30 | NUR ---
Spoke with Marie from [facility] and she will fax move in orders to our hospitalist for [facility], [address] [facility] [place] [phone]. She also requests 3 days of meds as it takes two days for their pharmacy to fill. Notified Dr. Damian and he will order. I did contact [facility] transport and pt qualifies. I schedule when I know time for dc tomrrow.
--- NOTE | 2022-03-28 14:35 | NUR ---
DR REYES IN FOR ASSESSMENT, PT UP IN WITH ALARM ON. PT IN GOOD SPIRITS, FOLLOWS INSTRUCTIONS AT WILL. PLAN TO DC TOMORROW.
[2022-03-28] MEDS ORDERED: HYDROCODON-ACE1 EAC8 PO ×2 (14:45→15:01)
[2022-03-28] MEDS ORDERED: OLANZAPINE2.5 MG PO (14:46)
[2022-03-28] MEDS ORDERED: TRAZODONE HCL100 MG PO (14:46)
[2022-03-28] MEDS ORDERED: HYDROXYZINE PAM25 MG PO (14:47)
[2022-03-28] MEDS ORDERED: LIPITOR40 MG PO (14:48)
[2022-03-28] MEDS ORDERED: METOPROLOL SUCC50 MG PO (14:48)
[2022-03-28] MEDS ORDERED: ESCITALOPRAM OX20 MG PO (15:01)
[2022-03-28] MEDS ORDERED: ONDANSETRON ODT4 MG PO (15:01)
[2022-03-28] MEDS ORDERED: NALOXONE HCL4 MG NAS (15:01)
[2022-03-28] MEDS ORDERED: TAMSULOSIN HCL0.4 MG PO (15:05)
--- NOTE | 2022-03-28 15:07 | NUR ---
TOOK PATIENT TO [facility]. CHANGED ATTENDS. PATIENT WIPED HIMSELF. PATIENT IS BACK IN HIS CHAIR WITH CHAIR ALARM ON.
--- NOTE | 2022-03-28 15:29 | NUR ---
REPORT RECIEVED FROM YOBANY REED. PATIENT IS SITTING UP IN CHAIR. IS W/O R/O,
--- NOTE | 2022-03-28 15:31 | NUR ---
Faxed move in orders, dc orders from hospital, order for HH, Rx for 30 day of meds to Marie at [facility]. Called and left a message the hospital will fill all meds on rx for 2 days of meds except the narcan spray as our pharmacy does not carry. Asked her to call and let me know if they need a covid swab before he leaves and to also let me know a transport time. I will schedule [facility] transport for this pt as it is free.
--- NOTE | 2022-03-28 15:34 | NUR ---
RX given to Cori in the pharmacy to fill meds. for 2 days of meds for this pt as [facility] state they at times cannot get meds for 2 days.
--- NOTE | 2022-03-28 15:51 | NUR ---
PATIENT UP TO AMBULATE ENTIRE HALLWAY WITH SBA AND FWW.
--- NOTE | 2022-03-28 16:17 | NUR ---
AMBULATED IN [facility] USING WALKER. RN WALKING WIHT PATIENT. BACK TO ROOM, SITTING IN CHAIR.
--- NOTE | 2022-03-28 17:21 | NUR ---
Received a call from Marie at [facility]. She has not received a return from Josse or Thalia at the [facility] facility. There is not a time or date for acceptance of this pt yet. She assures me it will be this week. Again let her know I need 24 hr notice to get transport through [facility] for this pt. She will call me tomorrow.
--- NOTE | 2022-03-28 17:50 | NUR ---
PATIENT SITTING UP IN CHAIR LISTENING TO MUSIC. VITALS AND I&O'S CHARTED. CALL LIGHT IN REACH. NO FURTHER NEEDS AT THIS TIME.
--- NOTE | 2022-03-28 18:28 | NUR ---
rn in room to administer scheduled medications - pt able to swallow all without difficulty. pt finished dinner at 100% and appears in good spirits. pt assisted on walk in hallway using fww, steady ambulation and follows directions. pt back to chair with chair alarm on and call light and drink at side with side table in front.
--- NOTE | 2022-03-28 19:45 | NUR ---
PATIENT YELLED "NURSE". WENT IN TO ASSIST IN USING THE URINAL. PATIENT STILL UP IN THE CHAIR. ALARM ON FOR SAFETY.
--- NOTE | 2022-03-28 20:53 | NUR ---
ASSISTING PATIENT TO BED, WHILE UP URINATING INTO URINAL PATIENT REPORTED HIS PAIN HAD INCREASED TO 6/10 ON PAIN SCALE IN HIS LOWER BACK. STATES " MUST OF BEEN ALL THAT WALKING I DID ON THE HARD FLOORS TODAY" ADMINSTERED PRN PAIN MEDICATION PER MAR. PATIENT APPEARS CALM AND ORIENTED, PROVIDE CUTING TO OBJECTS AND ACTIVITY IN ROOM. PATIENT VOIDED 100 ML OF YELLOW URINE. LUNG SOUNDS CLEAR THROUGHOUT. FULL BODY ASSESMENT DONE. VSS WNL. PATIENT RESTING SUPINE IN BED, PROVIDED WARM BLANKET. BED ALARM ON. LIGHTS DIM.
--- NOTE | 2022-03-28 22:00 | NUR ---
AMBULATED PT AROUND UNIT. PRIOR TO LEAVING ROOM, HE USED BATHROOM, CHANGED INCONT PADS. HE THOUGHT OUTSIDE HIS ROOM WAS THE LIVING ROOM, WANTED TO GO TALK TO "THEM". REDIRECTED, HE REMEMBERED WHERE HE WAS. BACK TO HIS ROOM, AND HE DECIDED THAT HE COULD LAY IN THE BED. COVERS PROVIDED, BEDALARM PLACED.
--- NOTE | 2022-03-29 | NUR ---
PATIENT APPEARS ANXIOUS, TRIES TO LAY BACK IN BED, BUT THEN SITS UP. 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 PATIENT THEN STATES " I DON'T WANT TO GO TO [place], I WON'T EVER BE ABLE TO GET BACK TO MY FRIENDS OR MY DOG". REASSURED PATIENT AND ENCOURAGED HIM TO TRY TO REST. PATIENT SEEMED TO BECOME RESTLESS AFTER TALKING TO HIS SON AMEYA ON THE PHONE. PROVIDED THERAPEUTIC TOUCH BY HAVING PATIENT REST BACK IN BED AND THEN PROVIDED FOOT MASSAGE. APPEARED TO CALM PATIENT, STILL UNABLE TO KEEP EYES CLOSED TO SLEEP.
--- NOTE | 2022-03-29 00:21 | NUR ---
PATIENT STATED WANTING TO USE THE BATHROOM STATED "I NEED TO POOP". DIRECTING HIM TO THE TOILET. WHEN IN THE TOILET PATIENT STATED" LET ME DO MY OWN". THIS COMMERCIAL DECORATOR TOLD PATIENT SOON HE IS ALREADY SITTING ON THE TOILET I WILL LEAVE HIM ALONE. PATIENT KEEPS STEPPING AWAY FROM THE TOILET AND TOWARDS THE WALL STATING "LET ME LOOSE, LET ME DO MYSELF" PATIENT DOES NOT FOLLOW DIRECTION THIS TIME. THIS COMMERCIAL DECORATOR CALL FOR HELP. PLY CUTTERQUOC CARY CAME AND TOOK OVER.
--- NOTE | 2022-03-29 00:55 | NUR ---
PATIENT APPEARS TO BE RESTING WITH EYES CLOSED, SLEEPING. BED ALARM ON.
--- NOTE | 2022-03-29 02:57 | NUR ---
PATIENT APPEARS TO BE RESTING WITH EYES CLOSED. BED ALARM ON.
--- NOTE | 2022-03-29 03:34 | NUR ---
BED ALARM SOUNDED, INTO ROOM PATIENT SITTING AT EDGE OF BED, STATING " I NEED TO PEE" PROVIDED WALKER AND STBY SUPPORT. PATIENT VOIDED 100 ML OF URINE. WHEN GETTING BACK INTO BED PATIENT NOT FOLLOWING DIRECTION, MULTIPLE ATTEMPTS TO GET UP. PATIENT APPEARS DROWSY. CALLED OTHER NURSING STAFF INTO ROOM TO GET PATIENT TO LAY BACK IN BED. BED ALARM ON. PATIENT RESTING SUPINE WITH EYES CLOSED. FACE SCALE 0/10 FOR PAIN.
--- NOTE | 2022-03-29 07:05 | NUR ---
REPORT RECEIVED FROM BRIANNA YANG. PT RESTING IN BED IN SUPINE POSITION WITH EYES CLOSED, RESPIRATIONS EVEN AND UNLABORED. BED RAILS UP. CALL LIGHT WITHIN REACH. PT ALLOWED TO REST.
--- NOTE | 2022-03-29 07:29 | NUR ---
BED ALARM SOUNDING. THIS RN TO ROOM. PT REPORTS NEED TO VOID. PT ASSISTED WITH USING URINAL. NAHUN CARE DONE. DEPENDS CHAGNED. PT VOIDS 200ML CLEAR YELLOW URINE. MORNING ASSESSMENT: STAND BY ASSIST WITH FWW UP TO CHAIR FOR BREAKFAST. PT NEEDS QUING RELATE TO WHERE TO WALK DUE TO POOR VISION. PT ALERT BUT STILL DROWSY REPORTS "I JUST NEED TO WAKE UP." PT ORIENTED TO ALL BUT YEAR. PT CORRECTLY STATES WHERE HE IS AND WHY HE IS AT THE HOSPITAL. PT ABLE TO CORRECT HIMSELF WITH THE NEW MONTH. VISION REMAINS UNCHANGED. PT REPORTS HE CAN SEE "A LITTLE." PT IS UNBLE TO IDENTIFY NUMNBER OF FINGERS IN FRONT OF FACE OR READ WORDS AT THIS TIME. PUPILS UNCHANGED. PT DENIES PAIN AND NAUSEA. SKIN UNCHANGED, MINIMA BLANCHABLE REDNESS NOTED TO GLUTEA AREA AT THIS TIME, BARRIER CREAM APPLIED. NO ADDITIONAL NEEDS AT THIS TIME. CALL LIGHT IN PTS LAP. ICE WATER REFILLED. CHAIR ALARM ON.
--- NOTE | 2022-03-29 08:58 | NUR ---
MORNING MEDICAITON DUE. GIVEN ORDERED. PT DENIES PAIN AND NAUSEA, BUT STATES HE STILL WANTS HIS PAIN MEDICATION. WARM BLANKETS PROVIDED. NO ADDITIONAL REQUESTS OR COMPLAINTS. CALL LIGHT WITHIN REACH. CHAIR ALARM ON.
--- NOTE | 2022-03-29 09:25 | NUR ---
pt i&o charted. pt asleep in chair acquisition professional will take vitals when pt is awake. nurse sunny was notified and agreed. call light within reach
--- NOTE | 2022-03-29 10:05 | NUR ---
BED ALARM ON. PT REPORTS HE IS READY TO GET UP AND WALK. PT AMBULATES X1 LAP IN [facility] WITH STAND BY ASSIST, QUING FOR DIRECTIONS, AND FWW. PT BACK TO ROOM AND UP TO CHAIR. PT DENIES PAIN AND NAUSEA. SODA/ICE REFILLED. PT DENIES ADDITIONAL REQUESTS OR COMPLAINTS. CALL LIGHT WITHIN REACH. CHAIR ALARM ON.
--- NOTE | 2022-03-29 11:30 | NUR ---
Called and spoke with Marie from [facility]. She states orders have been sent and she has spoken with Josse. She has not recieved an time or date for pt to admit.
--- NOTE | 2022-03-29 12:43 | NUR ---
MEDICATION DUE. THIS RN TO ROOM TO CHECK ON PT. PT RESTING IN CHAIR WITH EYES CLSOED. RESPIRATIONS EVEN AND UNLBORED. PT AWAKENES TO VOICE AND LIGHT TOUCH. PT REPORTS 6/10 LOWER BACK PAIN, SEE MAR FOR MEDICAITON GIVEN. PT UP TO STAND AND VOID IN URINAL WITH STAND BY ASSIST FOR QUING. NAHUN CARE DONE. DEPENDS DRY. PT BACK TO CHAIR. PT ASSITED WITH LUNCH TRAY ORIENTATION. PT FEEDING SELF. NO ADDITIONAL NEEDS AT THIS TIME. CALL LIGHT WITHIN REACH. CHAIR ALARM ON.
--- NOTE | 2022-03-29 13:23 | NUR ---
THIS RN TO ROOM TO CHECK ON PT. PT RESTING IN CHAIR WITH EYES CLOSED. RESPONDS TO VOICE AND STATES HE IS FINISHED WITH LUNCH. PT ATE ~50% OF LUNCH. PT DENIES PAIN AND NAUSEA. NO ADDITIONAL REQUESTS OR COMPALINTS. CALL LIGHT WITHIN REACH. CHAIR ALARM ON.
--- NOTE | 2022-03-29 13:45 | NUR ---
AFTERNOON ASSESSMENT DUE. THIS RN TO ROOM. PT RESTING IN CHAIR WITH EYES CLOSED, RESPIRATIONS EVEN AND UNLABORED. PT AWAKENS TO VOICE AND MOVEMENT IN THE ROOM. PT DENIES PAIN AND NASUEA. PT OREINTED TO ALL, INCLUDING DATE AND YEAR. PT ABLE TO RECALL WHAT HE HAD FOR LUNCH. PT REMAINS DROWSY REPORTING "I'M JUST A BIT TIRED TODAY." VISION UNCHANGED. PT REMAINS UNABLE TO READ OR STATE NUMBER OF FINGERS IN FRONT OF HIS EYES. PUPILS UNCHANGED. PT ASSISTED WITH DRINKING SODA AND HAVING A PIECE OF HIS HALLOWEEN CANDY. PT CONTINUES AMBULATING WITH STAND BY ASSIST AND FWW. HEART TONES REMAIN REGULAR. LUNG SOUNDS CLEAR. BOWEL TONES ACTIVE. NO ADDITIONAL REQUESTS OR COMPLAINTS. PT CONTINUES RESTING IN CHAIR. PT UP TO STAND AND REPOSITION AND THEN BACK TO CHAIR. CALL LIGHT WITHIN REACH. CHAIR ALARM ON.
--- NOTE | 2022-03-29 14:30 | NUR ---
HOURLY ROUNDING: THIS RN TO ROOM TO CHECK ON PT. PT RESTING IN CHAIR WITH EYES CLOSED, RESPIRATIONS EVEN AND UNLABORED. CALL LIGHT WITHIN REACH. CHAIR ALARM ON. PT ALLOWED TO REST.
--- NOTE | 2022-03-29 15:09 | NUR ---
Attempted to call Josse Caballero RN, Region Director for [facility]. Left a message asking when this pt can admit.
--- NOTE | 2022-03-29 15:14 | NUR ---
pt had a visit with friend. pt used urinal. pt up in chair. call light within reach no further tasks at this time
--- NOTE | 2022-03-29 15:18 | NUR ---
THIS RN TO ROOM TO CHECK ON PT. PT UP IN ROOM AMBULATING WITH PHYSICAL THERAPY. PT DENEIS PAIN AND NAUSEA. NO REQEUSTS OR COMPLAINTS. PT CONTINUES WORKING WITH PHYSICAL THERAPY.
--- NOTE | 2022-03-29 16:11 | NUR ---
RECEIVED CALL FROM [facility]. SHE STATES THEY CAN TAKE PATIENT AT [facility] ON MONDAY. WOULD LIKE HIM THERE AROUND 11AM. SHE STATES THEY DO NEED SON TO SEND SIGNED PAPERWORK. DUANE BARNES STATES SHE LEFT SON MESSAGE TODAY IN REGARDS TO THIS. DISCUSSED WITH COREY WE WILL ARRANGE [facility].
--- NOTE | 2022-03-29 16:21 | NUR ---
[facility] [phone]. SPOKE WITH JOHANNE. SHE IS SETTING UP TRANSPORT FOR DISCHARGE HERE TO [facility] [address] FACILITY NUMBER GIVEN [phone]. SHE WILL CALL BACK TOMORROW MORNING WITH TRANSPORT COMPANY BUT THEY WILL SCHEDULE FOR 9AM HAT BODY INSPECTOR HERE ON 03/31/22. STAFF UPDATED.
--- NOTE | 2022-03-29 16:54 | NUR ---
THIS RN TO ROOM TO CHECK ON PT. STAND BY ASSIST UP TO STAND AND USE URINAL. PT VOIDS WITHOUT ISSUE. NAHUN CARE DONE. PT BACK TO CHAIR. PT DENIES PAIN AND NAUSEA. NO ADDITIONAL REQUESTS OR COMPLAINTS. CALL LIGHT WITHIN RECH. BED RAILS UP.
--- NOTE | 2022-03-29 17:07 | NUR ---
DINNER DELIVERED TO PT. PT UP TO STAND TO ADJUSTED CLOTHING. PT ASKES INTELLEGENT QUESTIONS ABOUT HIS PLAN OF CARE AND PLAN FOR DISCHARGE. PT VERBALIZES UNDERSTANDING OF ANSWERES. PT OREINTED TO MEAL TRAY AND IS FEEDING SELF. NO ADDITONAL NEEDS AT THIS TIME. CALL LIGHT WIHTIN REACH. CHAIR ALARM ON.
--- NOTE | 2022-03-29 17:11 | NUR ---
PT HERE FOR CVA AND AWAITING PLACEMENT. PT UP WITH STAND BY ASSIST AND FWW THIS SHIFT, TO CHAIR, FOR WALKS AND WITH PHYSICAL THERAPY. PT TOLERATING FINGER FOOD DIET AND FEEDING HIMSELF. NEURO ASSESSMENT WNL THIS SHIFT BUT FOR ONGOING VISION LOSS, UNCHANGED. PT ABLE TO READ AND SEE OBJECTS AT TIMES. PT NEEDS QUING DURING AMBULATION. PT VOIDING QUANTITY SUFFICIENT. INCONTINANT AT TIMES. SCHEDULE NORCO FOR LOWER BACK PAIN AND PER PT MEDICAITON DEPENDANCE. PT CALM AND COOPERATIVE SO FAR THIS SHIFT. PT USING CALL LIGHT INTERMITTANTLY. BED/CHAIR ALARM FOR SAFETY.
--- NOTE | 2022-03-29 17:38 | NUR ---
MEDICATION DUE. PT FINISHED WITH DINNER, ABLE TO EAT 100%, INDEPENDANTLY. VITAL SIGNS STABLE. PT DENIES PAIN BUT STATES HE WOULD LIKE HIS PAIN MEDICATIONS. MEDICATIONS GIVEN. PT SINGING ALONG TO MUSIC. PT DENIES ADDITONAL REQUESTS OR COMPLAINTS. CALL LIGHT IN PTS HANDS. SODA REFILLED FOR PT. PT DENIES ADDITIONAL REQUESTS OR COMPLAINTS. CALL LIGHT WITHIN REACH. CHAIR ALARM ON.
--- NOTE | 2022-03-29 18:08 | NUR ---
PT CALL LIGHT ON. PT REPORTS "THERE IS WATER RUNNING." PT HAS SPILT SODA OVER HIS LAP. SODA CLEANED UP. PT UP TO RESTROOM WITH STAND BY ASSIST AND FWW, QUING NEEDED TO FIND RESTROOM. PT HAS LARGE SOFT BROWN BOWEL MOVEMENT. PT PERFORMS MOST OF SELF NAHUN CARE. ADDITIONAL CARE DONE BY THIS RN, BARRIER CREAM APPLIED. NEW DEPENDS AND PANTS APPLIED. STAND BY ASSIST BACK TO CHAIR. WARM BLANKETS PROVIDED. NO ADDITONAL REQUESTS OR COMPLAINTS. CALL LIGHT IN PTS HANDS.
--- NOTE | 2022-03-29 18:26 | NUR ---
PT RESTLESS AND REQUESTS TO AMBULATGE IN ALTAMIRANO. PT UP TO AMBULATE X1 LAP WITH STAND BY ASSIST AND FWW. PT BACK TO ROOM AND UP TO CHAIR. 7-UP PROVIDED PER PT REQUEST. NO ADDITIONAL NEEDS AT THIS TIME. CALL LIGHT IN PTS HANDS. CHAIR ALARM ON.
--- NOTE | 2022-03-29 19:46 | NUR ---
REPORT RECEIVED FROM DAY SHIFT RN. PT SITTING IN RECLINER RESTING WITH EYES CLOSED. RESPIRATIONS EVEN. CALL LIGHT IN REACH. CHAIR ALARM FOR SAFETY. PT IN VIEW OR NURSES STATION.
--- NOTE | 2022-03-29 22:47 | NUR ---
PT CONTINUES RESTING IN CHAIR. IN ROOM TO ASSIST TO VOID AND TRANSFER TO BED WITH 1PA AND FWW. PT COOPERATIVE AND FOLLOWING DIRECTIONS. GAIT STEADY, REQUIRS FREQUENT QUEING FOR ROOM ORIENTATION. VS AND I&O OBTAINED. PT DENIES PAIN AT THIS TIME. SIPS OF WATER PROVIDED. PT DENIES FURTHER NEEDS. BED ALARM FOR SAFETY.
--- NOTE | 2022-03-30 00:49 | NUR ---
PT RESTING IN BED WITH EYES CLOSED. RESPIRATIONS EVEN. BED ALARM FOR SAFETY. CALL LIGHT IN REACH.
--- NOTE | 2022-03-30 01:45 | NUR ---
pt ATTEMPTING TO GET OOB TO PEE, ASSISTED WITH URINAL. ALSO INCONTINENT OF SMALL AMOUNT OF URINE, NAHUN CARE DONE AND CLEAN DRY ATTENDS IN PLACE. BED ALARM RESUMED AND CALL LIGHT IN REACH. pt REMAINS IN VIEW OF RN STATION.
--- NOTE | 2022-03-30 03:20 | NUR ---
BED ALARM SOUNDING. PT REQUESTING SOMETHING TO DRINK. WATER AND DIET PEPSI PROVIDED, SNACK ALSO GIVEN. ASSISTED TO USE THE URINAL. PT DENIES PAIN. ASSISTED TO REPOSITION IN BED. NO FURTHER NEEDS. BED ALARM FOR SAFETY.
--- NOTE | 2022-03-30 04:58 | NUR ---
BED ALARM SOUNDING. IN TO ASSIST PT USE URINAL AND GET A DRINK. VS AND I&O COMPLETE. NO FURTHER NEEDS. CALL LIGHT IN REACH. BED ALARM FOR SAFETY.
--- NOTE | 2022-03-30 07:04 | NUR ---
REPORT RECEIVED FROM BRIANNA PARRISH. PT RESTING IN BED ON BACK IN SUPINE POSITION. RESPRATIONS EVEN AND UNLABORED. HEAD OF BED ELEVATED TO 20 DEGREES. PT ALLOWED TO REST. CALL LIGHT WITHIN REACH. BED RAILS UP. BED ALARM ON.
--- NOTE | 2022-03-30 07:54 | NUR ---
MORNING ASSESSMENT AND MEDICATION DUE. PT RESTING IN BED. PT AWAKENS TO MOVEMENT IN THE ROOM. PT REPORTS HE HAD A GOOD NIGHT SLEEP. PT DENEIS NEED TO VOID. STAND BY ASSIST WITH FWW UP TO CHAIR, QUING NEEDED. PT DENIES PAIN AND NAUSEA AND IS ABLE TO POSITION SELF IN CHAIR. PT ALERT AND OREINTED TO ALL, BUT EXACT TIME. PT ABLE TO POINT OUT THE CLOCK IN THE ROOM. PT ALSO ABLE TO IDENTIFY NUMBER OF FINGERS HELD UP INFRONT OF HIS FACE. PT CAN FOLLOW FINGER WITH HIS EYES TO SOME EXTENT, THEREFORE VISION APPEARS IMPROVED SO FAR TODAY. PUPILS UNCHANGED. LUNG SOUNDS CLEAR. HEART TONES REGULAR. REDENESS TO BACKSIDE IMPROVING, MINIMAL NOTED AT THIS TIME. MEDICATIONS GIVEN. PT REMAINS UP TO CHAIR, CALL LIGHT IN PTS LAP. NO ADDITONAL REQUESTS OR COMPLAINTS AT THIS TIME. CHAIR ALARM ON.
--- NOTE | 2022-03-30 08:51 | NUR ---
THIS RN TO ROOM TO CHECK ON PT. PT ASSIST UP TO STAND AND USE URINAL. NAHUN CARE DONE. DEPENDS DRY. STAND BY ASSIST BACK TO CHAIR. PT FINISHING BREAKFAST. NO ADDITIONAL NEEDS AT THIS TIME. CALL LIGHT WITHIN REACH. CHAIR ALARM ON.
--- NOTE | 2022-03-30 09:18 | NUR ---
PTS FRIEND ARRIVED WITH CLEAN CLOTHES FOR PT. PT ASSISTED WITH CHANING DEPENDS AND DRESSING IN FRESH PANTS AND SHIRT. PT ABLE TO SNAP HIS OWN SHIRT. PT UP TO AMBULATE IN ALT[place]IR[place]O X1 LAP WITH STAND BY ASSIST AND FWW. NEEDS QUING RELATED TO VISION. PT IS ABLE TO READ SOME SIGNS IN ALTAMIRANO WHILE AMBULATING. PT BACK TO ROOM AND UP TO CHAIR. PT ASSISTED WITH CALLING HIS SON AMEYA. NO ADDITIONAL REQUETS OR COMPLAINTS. CALL LIGHT WITHIN REACH. CHAIR ALARM ON.
--- NOTE | 2022-03-30 10:08 | NUR ---
RT COLLECTED RAPID COVID 19 SWAB AT THIS TIME WITH NO COMPLICATIONS.
--- NOTE | 2022-03-30 10:21 | NUR ---
RECEIVED MESSAGE FROM SON AMEYA WHO SAID PATIENT IS NOT UNDERSTANDING WHY HE CAN'T GO TO [place] OR [place] IS TOO FAR FOR VISITORS TO SEE HIM. CALLED HIM BACK AND DISCUSSED THAT THE PLAN IS THEY WILL MOVE HIM CLOSER WHEN A BED OPENS UP. AMEYA STATES HE ALMOST HAS PAPERWORK DONE FOR [facility] AND IS SENDING IT DIRECTLY TO THEM. DISCUSSED TRANSPORTATION IS SET FOR TOMORROW 9AM. NO OTHER QUESTIONS.
--- NOTE | 2022-03-30 10:24 | NUR ---
THIS RN TO ROOM TO CHECK ON PT. PT ASKS QUESTIONS ABOUT HIS BLOOD PRESSURE MEDICATIONS, QUESTIONS ANSWERED. PT UP TO RESTROOM WITH STAND BY ASSIST AND FWW. PT HAS MODERATE BROWN BOWEL MOVEMENT. NAHUN CARE DONE BY PT WITH SOME ASSISTANCE TO ENSURE CLEANLINESS. STAND BY ASSIST BACK TO CHAIR. PT DENIES PAIN AND NAUSEA AT THIS TIME. NO ADDITONAL REQUESTS OR COMPLAINTS. CALL LIGHT WITHIN REACH. CHAIR ALARM ON.
--- NOTE | 2022-03-30 11:08 | NUR ---
THIS RN TO ROOM TO CHECK ON PT. PT STATES HE JUST WOKE UP FROM HIS NAP AND IS "FEELING A LITTLE SCARED." PT REPORTS HE MIGHT HAVE HAD A BAD DREAM. PT REMAINS OREINTED TO ALL. A WALK SUGGESTED. PT AGREES. PT UP TO AMBULATE IN ALT[place]O X1 LAP WITH STAND BY ASSIST, QUING, AND FWW. PT BACK TO ROOM AND UP TO CHAIR. NO ADDITIONAL NEEDS AT THIS TIME. PT EATING A COOKIE. CALL LIGHT [place]IN REACH. CHAIR ALARM ON.
--- NOTE | 2022-03-30 12:27 | NUR ---
THIS RN TO ROOM TO CHECK ON PT. PT FINISHED WITH LUNCH. VACCINATION GIVEN BY BRIANNA GONZALEZ. PT CHEERFUL, TALKING WITH NURSING STAFF AND FRIEND WHO IS HERE TO VISIT. PT DENIES PAIN BUT WOULD LIEK PAIN MEDICATION [id number], SEE MAR FOR MEDICATION GIVEN. PT POINTS OUT A FEW OBJECTS ON HIS BEDSIDE TABLE. CALL LIGHT IN PTS HAND. CHAIR ALARM ON.
--- NOTE | 2022-03-30 13:28 | NUR ---
THIS RN TO ROOM TO CHECK ON PT. PT REMAINS UP TO CHAIR, EATING BROWNIE. PT ASSISTED WITH CHAINING MUSIC STATION. PT DENIES PAIN AND NAUSEA. NO ADDITIONAL REQUESTS OR COMPLANTS. CALL LIGHT WITHIN REACH. CHAIR ALARM ON.
--- NOTE | 2022-03-30 14:19 | NUR ---
AFTERNOON ASSESSMENT DUE, PT LEARNING TO USE REMOTE TO CHANGE TELEVISION MUSIC STATIONS. PT REPORTS NEED TO USE THE REST ROOM. STAND BY ASSIST WITH FWW AND VERBAL DIRECTIONS UP TO RESTROOM. PT VOIDS AND HAS SOFT BROWN BOWEL MOVEMENT. DEPENDS DRY. PT PERFORMS SELF NAHUN CARE WITH SOME ASSISTANCE FOR COMPLETE CLEAN FROM THIS RN. BARRIER CREAM APPLIED PER PT REQUEST. VERY MINIMAL REDNESS NTOED. STAND BY ASSIT BACK TO CHAIR. PT ALERT AND OREINTED TO ALL. PT CONTINUES TO DENY PAIN AND NAUSEA. PT ABLE TO IDENTIFY COLORS IN LORY ROOM AND A FEW OBJECTS, VISION IMPROVING. PUPILS UNCHANGED. PT CAN IDENTIFIY NUMBER OF FINGERS HELD UP IN FRONT OF EYES. PT READING SIGNS MORE OFTEN TODAY. PT REPORTS "MY EYES ARE GETTING BETTER EVERY DAY." PT FINISHES ENSURE [place] INDEPENDANTLY. LUNG SOUNDS CLEAR. HEART TONES REGULAR. NO ADDITIONAL REQUESTS OR COMPLAINTS. CALL LIGHT WITHIN REACH.
--- NOTE | 2022-03-30 15:30 | NUR ---
THIS RN TO ROOM WITH DR REYES FOR ROUNDS. PT VERBALIZES UNDERSTANDING OF PLAN OF CARE AND STATES HIS QUESTIONS HAVE BEEN ANSWERED. PT DENIES PAIN AND NAUSEA. PT REPORTS HE IS READY TO GET UP TO AMBULATE. PT UP WITH STEPHANIE NETTLES TO RIDE BY WHEELCHAIR TO THE KITCHEN TO PICK OUT SOME SNACKS. NO ADDITIONAL REQUESTS OR COMPLAINTS. STEPHANIE NETTLES, WITH PT.
--- NOTE | 2022-03-30 15:31 | EKG ---
[facility] [address] [place] [address] Signed Normal sinus rhythm Normal ECG When compared with ECG of 11-MAR-2022 20:41, Left posterior fascicular block is no longer present ST no longer depressed in Anterior leads T wave inversion no longer evident in Anterolateral leads Confirmed by NATALIE REYES MD ([id number]) on 03/30/2022 3:30:57 PM Electronically Signed By: NATALIE REYES MD 03/30/22 1531 PATIENT NAME: MOSHE ROBERTS Electrocardiogram DATE OF : 41 PHYSICIAN: NATALIE REYES MD REPORT #: [id number] REPORT IS CONFIDENTIAL AND NOT TO BE RELEASED WITHOUT AUTHORIZATION
--- NOTE | 2022-03-30 16:02 | NUR ---
Took resident downstairs to cafeteria for ice cream. After snack took resident for a walk.
--- NOTE | 2022-03-30 16:03 | NUR ---
PT HERE FOR CVA AND AWAITING PLACEMENT. PT UP WITH STAND BY ASSIST AND FWW THIS SHIFT, TO CHAIR, FOR WALKS AND WITH PHYSICAL THERAPY. PT TOLERATING FINGER FOOD DIET AND FEEDING HIMSELF. NEURO ASSESSMENT WNL THIS SHIFT BUT FOR ONGOING VISION LOSS, IMPROVING THIS SHIFT. PT ABLE TO IDENTIFY ITEMS IN THE ROOM AND READ WORDS AT TIMES. PT PLESENT AND OREINTED TO ALL THROUGHOUT SHIFT. PT NEEDS QUING DURING AMBULATION. PT VOIDING QUANTITY SUFFICIENT. INCONTINANT AT TIMES. SCHEDULE NORCO FOR LOWER BACK PAIN AND PER PT MEDICAITON DEPENDANCE. PT CALM AND COOPERATIVE SO FAR THIS SHIFT. PT USING CALL LIGHT INTERMITTANTLY. BED/CHAIR ALARM FOR SAFETY.
--- NOTE | 2022-03-30 16:34 | NUR ---
THIS RN TO ROOM TO CHECK ON PT. CRIMINAL COURT JUDGE REPORTS PT IS BECOMING ANXIOUS. PT UP TO AMBULATE IN ALTAMIRANO X1 LAP WITH STAND BY ASSIST AND FWW. PT REPORTS ANXIETY ABOUT GOING TO [place] TOMORROW. EXPLAINATIONS PROVIDED TO PT AND PT STATES "I FEEL BETTER NOW." PT BACK TO ROOM BUT CONTINUES TO REPORT HIGH LEVELS OF ANXIETY. PT FIGITING AND RESTLESS. DR. REYES CALLED AND MESSAGE LEFT. WAITING FOR CALL BACK. PT RESTING IN CHAIR, RESTLESS. CHAIR ALARM ON. CALL LIGHT IN PTS HANDS.
--- NOTE | 2022-03-30 17:13 | NUR ---
THIS RN TO ROOM TO CHECK ON PT. PT CONTINUES TO BE ANXIOUS AND FIGITING IN THE CHAIR. PT TEARFUL AND CONCERNED ABOUT ANXIETY. PT UP TO AMBULATE ANOTHER LAP IN THE ALTAMIRANO WITH STAND BY ASSIST FROM BRIANNA PAPIAH. ATTEMPTING NON PHARMACOLOGICAL METHODS TO RELEAVE ANXIETY INCLUDING CONVERSTAION, PLAN OF CARE EXPLAINATIONS, WARM BLANKETS, MUSIC, AND FOOD. PT BACK TO ROOM AND UP TO CHAIR. PT IN CONTROL OF BODY SO FAR. MONITORING. CALL LIGHT WITHIN REACH. CHAIR ALARM ON.
--- NOTE | 2022-03-30 17:31 | NUR ---
DINNER DELIVERED TO PT. PT ASSISTED WITH FINDING SANDWICH TO HOLD AND EAT. PT APPEARS TO BE CALMING SOMEWHAT, STILL REPORTS ANXIETY. EVENING MEDICAITONS GIVEN. VITAL SIGNS STABLE. PT UP TO RESTROOM WITH STAND BY ASSIST, FWW, AND QUEING. PT HAS MODERATE SOFT BOWEL MOVEMENT. PT ASISTED WITH NAHUN CARE. DEPENDS CHANGED. STAND BY ASSSIT BACK TO CHAIR. PT FINISHING DINNER. NO ADDITIONAL NEEDS AT THIS TIME. CALL LIGHT WITHIN REACH. CHAIR ALARM ON.
--- NOTE | 2022-03-30 18:28 | NUR ---
PT CALL LIGHT ON. PT REQUESTS AN ADDITIONAL SANDWICH, ORDERED PLACED AND ARRIVED PT EATS AND ADDITIONAL 1/2 OF SANDWICH AND STATES "I JUST NEED TO TALK WITH SOMEONE." PT TALKS ABOUT HORSES AND RANCHING AND RODEOS FROM HIS YOUTH. PT APPEARS CALMER AND IS NOW RESTING IN CHAIR LISTENING TO MUSIC. NO ADDITIONAL NEEDS AT THIS TIME. CALL LIGHT WITHIN REACH. CHAIR ALARM ON.
--- NOTE | 2022-03-30 19:26 | NUR ---
RECEIVED REPORT FROM CHERELLE REED. PT SITTING IN CHAIR WITH EGG CRATE IN PLACE AND CHAIR ALARM ON, PT IS AWAKE LISTENING TO MUSIC. CHERELLE REED NOW ASSISTING PT TO RESTROOM W/1PA & FWW.
--- NOTE | 2022-03-30 19:42 | NUR ---
IN ROOM FOR PT ASSESSMENT, VITALS, I/O'S. PT IS RESTING IN CHAIR WITH EGG CRATE UNDERNEATH AND BED ALARM ON. PT ALERT AND ORIENTED X4. PT STATES HE IS NOT IN ANY PAIN AND ALSO REPORTS NO NAUSEA, DIZZINESS, CHEST PAIN, OR N/T. LUNG SOUNDS ARE CLEAR, HEART SOUNDS ARE REGULAR, ALL BOWEL TONES ACTIVE, PULSES PRESENT THROUGHOUT. PT STATES HE FEELS HIMSELF "STARTING TO GET WORKED UP" AND IS PERIODICALLY CRYING. PT ASKED FOR PRN ANXIETY MED, BUT GIVEN AT 1730. CALLED DR[address] REYES AND HE STATES HE IS PUTTING IN PRN ORDERS FOR ANXIETY MED.
--- NOTE | 2022-03-30 20:02 | NUR ---
IN ROOM FOR ALLEY TENDER. PT STATES HE IS FEELING ANXIOUS AND EASILY ALARMED UPON ME ENTERING THE ROOM, VERY SENSITIVE TO SOUND STIMULATION. PT RESTING IN CHAIR WITH DIET COKE IN HAND, CALL LIGHT WITHIN REACH, CHAIR ALARM ON.
--- NOTE | 2022-03-30 21:10 | NUR ---
IN TO CHECK ON PT, PT CALLED OUT, ASSISTED UP TO THE TOILET WITH FWW, BACK TO THE CHIAR, OFFERED PT TO GO TO THE BED, CHAIR ALARM IN USE
--- NOTE | 2022-03-30 21:47 | NUR ---
IN TO ASSIST PT WITH PILLOWS IN CHAIR
--- NOTE | 2022-03-30 22:10 | NUR ---
pt sitting up at the edge of bed, feeling of anxitiy, this platform material handling supervisor with pt until rn could check on pt, fresh soda provided from the fridge, back in bed, alarm active
--- NOTE | 2022-03-30 22:28 | NUR ---
PT STATES FEELING PAIN IN HIP, RATED 6/10. REPOSITIONED IN BED, PUDDING PROVIDED, PRN PAIN MED ADMINISTERED. PT IS NOW RESTING IN BED, BED ALARM ON, CALL LIGHT WITHIN REACH, NO FURTHER NEEDS AT THIS TIME.
--- NOTE | 2022-03-30 23:30 | NUR ---
pt called, wanted lights adjusted multiple times, than pt wanted up to the toilet, back to bed side, rn in to assist with pt
--- NOTE | 2022-03-31 00:17 | NUR ---
pt RESTLESS IN BED. 1PA WITH FWW TO AMBULATE ONE LAP AROUND NURSES STATION. REQUIRING ASSISTANCE WITH DIRECTION OF WALKER. pt ABLE TO VISUALIZE GREEN EAR LIGHT AT NURSES STATION. pt BACK IN BED, SITTING AT SIDE OF BED. EATING ICE CREAM. BED ALARM ON. CURTAIN OPEN FOR CLOSE VIEW FROM NURSES STATION.
--- NOTE | 2022-03-31 02:01 | NUR ---
pt fidgeting in bed, reports back pain and pt stands up to stretch back. street clothes and shoes recently in place with help from brim buster. pt back in bed, call light in reach and bed alarm on for safety.
--- NOTE | 2022-03-31 02:18 | NUR ---
IN PT ROOM D/T RESTLESSNESS. PANTS, SUSPENDERS, AND SHOES REMOVED. PT CHANGES FROM LAYING DOWN POSITION TO SITTING UP POSITION Q2 MINUTES. ASSISTED PT WITH USING URINAL AT BEDSIDE IN STANDING POSITION. ADMINISTERED PRN ANXIETY MED. CALL LIGHT WITHIN REACH. ASSESSMENT COMPLETE. THIS RN IN ROOM WITH PT.
--- NOTE | 2022-03-31 03:45 | NUR ---
THIS WATER TAXI FERRY OPERATOR HAS BEEN IN ROOM WITH PT FOR A WHILE, PT UP TO THE CHAIR, FIGITING WITH ITEMS OR TABLE AND CALL LIGHT, PT FUSTRATED HE CAN'T FIND PLUG INS, PT ENCURAGED TO RESUME THIS ACTIVITY IN THE MORNING WITH MORE DAYLIGHT TO HELP HIM SEE, PT TOLD TO SIT BACK IN THE CHAIR SO THIS WATER TAXI FERRY OPERATOR CAN ROUND ON OTHER PTs, PT LAYING BACK IN THE CHAIR NOW AND CHAIR ALARM IN USE
--- NOTE | 2022-03-31 05:36 | NUR ---
PT SLEEPING IN CHAIR. IS AND OS COMPLETE. VITALS HELD OFF ON PER RN SO PT CAN REST DUE TO A LONG NIGHT. NO NEEDS. CALL LIGHT IS WITHIN REACH.
--- NOTE | 2022-03-31 06:16 | NUR ---
PT RESTING IN RECLINER WITH EYES CLOSED. RESPIRATIONS ARE EVEN AND UNLABORED, NO SIGNS OF DISTRESS. CHAIR ALARM IN PLACE, CALL LIGHT WITHIN REACH.
--- NOTE | 2022-03-31 06:52 | NUR ---
EVENTFUL NIGHT FOR PT. PT FREQUENTLY RESTLESS. MD CALLED AND PRN VISTARIL ADDED, GIVEN X2. PRN NORCO GIVEN X1 FOR 6/10 HIP PAIN. VSS. PT AMBULATED IN THE HALLWAY MULTIPLE TIMES. AWAKE MAJORITY OF THE NIGHT. NO AM LABS. PT TO DISCHARGE TO [place] AT 9AM THIS AM. BED ALARM/CHAIR ALARM ON FOR SAFETY.
--- NOTE | 2022-03-31 07:56 | NUR ---
PT SITTING IN CHAIR, RESTING. PT IS ORIENTED TO PERSON, PLACE, AND EVENT. DISORIENTED TO DATE. PT DENIES ANY PAIN AT THIS TIME.
--- NOTE | 2022-03-31 09:09 | NUR ---
2 PT BELONGING BAGS PICKED UP AT [employer] INFORMATION ASSISTANT FROM [employer]. ONE BAG MARKED $652.00 AND SILVER MONEY CLIP WITH INTIALS TP, COUNTED WITH PT AND RETURNED TO PT, WITNESS ILYA BROWN. SECOND BAG MARKED "NORCO 41 1/2 TABS" COUNTED WITH UTILIZATION SPECIALIST LENA, 41 1/2 TABS OF WHITE PILLS COUNTED AND GIVEN TO LENA BLOCK ENGRAVER.
--- NOTE | 2022-03-31 09:19 | NUR ---
HECTOR RN BROUGHT ENVELOPE FROM [facility] TO CASE MANAGEMENT THAT CONTAINED UNMARKED MEDICATIONS THAT WERE FOUND ON PATIENT ON ADMIT. PATIENT PICKED UP ALL OTHER BELONGINGS WITH STAFF FROM [facility] AT DISCHARGE AND LEFT WITH TRANSPORT. PATIENT IS UNABLE TO GIVE OWN MEDS SAFELY DUE TO STROKE RESIDUAL SYMPTOMS INCLUDING BLINDNESS. PILLS WERE BROKE IN 1/2 AND IN CLEAR BAGGIE. THESE WERE LABELED AT 41 HALF-TABLETS. THESE WERE COUNTED IN PRESENCE OF MYSELF, HECTOR REED AND HORACE REEDRETAIL POS SPECIALIST. THERE WERE EXACTLY 41 HALF-TABLETS. THESE WERE GIVEN TO PHARMACIST WHO GAVE US A MAIL-IN ENVELOPE THEY USE TO DISPOSE OF SUCH MEDS TO [facility] TO, [facility] [address] [facility] [place] [address]. MEDICATIONS WERE PLACED INSIDE WITHOUT ANY PATIENT IDETIFYING TAGS AND SEALED AND TAKEN TO ADMITTING FOR MAILING.
--- NOTE | 2022-03-31 09:54 | NUR ---
REPORT CALLED TO ZAKIA AT [facility], ALL QUESTIONS ANSWERED.
--- NOTE | 2022-03-31 11:45 | NUR ---
PT REPORTS NAUSEA ONCE IN TRANSPORT VAN. VERBAL ORDER FROM DR REYES TO GIVE [facility] FOR DISCHARGE
--- NOTE | 2022-03-31 12:05 | NUR ---
CALLED [facility] AND UPDATED THEM THAT PATIENT IS JUST LEFT TOWN SO THEY HAVE A NEW ETA. [phone].
== END 2022-03-31 09:05 | disposition home health service (06) | DRG 64 ==
LOC: ED 10:48 → MS 13:27 → CCU 13:27 → MS 02-26 14:00
PROVIDERS: ADMIT Internal Medicine; ATTEND Internal Medicine
DX: I63.431 Cerebral infarction due to embolism of right posterior cerebral artery (principal); G93.41 Metabolic encephalopathy; A04.72 Enterocolitis due to Clostridium difficile, not specified as recurrent; F11.20 Opioid dependence, uncomplicated; I48.20 Chronic atrial fibrillation, unspecified; E87.1 Hypo-osmolality and hyponatremia; Z66 Do not resuscitate; Z20.822 Contact with and (suspected) exposure to COVID-19; R29.718 NIHSS score 18; H53.461 Homonymous bilateral field defects, right side; I11.0 Hypertensive heart disease with heart failure; N40.1 Benign prostatic hyperplasia with lower urinary tract symptoms; F41.8 Other specified anxiety disorders; G89.4 Chronic pain syndrome; I48.0 Paroxysmal atrial fibrillation; E78.00 Pure hypercholesterolemia, unspecified; I50.9 Heart failure, unspecified; Z96.642 Presence of left artificial hip joint; Z98.890 Other specified postprocedural states; Z88.8 Allergy status to other drugs, medicaments and biological substances; Z79.899 Other long term (current) drug therapy
CPT/HCPCS: 36415; 70450; 70496; 70498; 71045; 80048; 80053; 80061; 81001; 83036; 83735; 84484; 85025; 85610; 85730; 87502; 93005; 93010; 94760; 97110; 97116; 97163; 97166; 97168; 97530; 97535; A9270; A9270-GY; C9803; J1630; J2060; J2270; J2405; J7030; J7121; Q0177; Q3014; Q9967; U0003

== ENCOUNTER 2022-09-24 07:24 | Inpatient (IN) | payer MEDICARE, OTHER ==
[~2022-09-24] VITALS: Ht 177.8 cm; Wt 107.0 kg
--- NOTE | ~2022-09-24 | EKG ---
[facility] [address] [place], [place] [address] Draft EK completed, results pending confirmation PATIENT NAME: MOSHE ROBERTS Electrocardiogram DATE OF : 41 PHYSICIAN: PRELIMINARY REPORT #: [id number] REPORT IS CONFIDENTIAL AND NOT TO BE RELEASED WITHOUT AUTHORIZATION
[~2022-09-24 07:24] MED LIST changes: +ATORVASTATIN CA10 MG PO; +DOXEPIN HCL10 MG PO; +ESCITALOPRAM OX20 MG PO; +HYDROXYZINE PAM25 MG PO; +LIPITOR40 MG PO; +METOPROLOL SUCC50 MG PO; +NALOXONE HCL4 MG NAS; +OLANZAPINE2.5 MG PO; +TAMSULOSIN HCL0.4 MG PO; +TRAZODONE HCL100 MG PO; +VANCOMYCIN HCL125 MG PO
--- OUTSIDE RECORDS SUMMARY | 2022-09-24 07:26 | XMS ---
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 Social Group Worker Events 1 event(s) in the past 18 months Most recent security events: Elopement at [facility] 08/02/2022 16:41 - Patient eloped before treatment completed. - Patient with suicidal and/or homicidal ideations eloped. - Patient eloped with IV in place. Details: Patient LWBS CRITERIA MET - 6 ED Visits in [address] [facility] - 2 Visits in 30 Days - Group Notification CARE PROVIDERS -Ld- Dentist: Call Out Operator [facility] PHONE: [phone] Myra Jacobson Senior Corporate Recruiter/Culvert Installer 01/26/2022-Current PHONE: [phone] GERARD JOYCE Nurse Practitioner: Family Current PHONE: [phone] ELA WEISSiatrshira Tarango PHONE: [phone] KARRI MONREAL Internal Medicine Current PHONE: [phone] Ksenia Todd Senior Corporate Recruiter/Culvert Installer 07/27/2022-Current PHONE: [phone] YUVAL DE LA CRUZ Nurse Practitioner: Family Current PHONE: Unknown DANA KIRK Internal Medicine Current PHONE: [phone] BRETT DALTON Physician Splitter Operator 04/02/2020-Current PHONE: [phone] GERRY GOLDBERG I. Physician Splitter Operator Current PHONE: Unknown YUE SHIRLEY Nurse Practitioner Current PHONE: Unknown BECKY JENSEN Nurse Practitioner Serena ARREDONDO PHONE: [phone] ELDER [facility] Current PHONE: Unknown AMBER [facility] Current PHONE: [phone] [place] has no Care Guidelines for this patient. Sheila VISIT COUNT ([address] [facility] 1 [facility] 10 [facility] TOTAL 16 NOTE: Visits indicate total known visits. ED/UCC VISIT TRACKING (12 MO.) 09/24/2022 07:25 [facility] [place] TYPE: Emergency COMPLAINT: - HIP PAIN 09/22/2022 19:22 [facility] TYPE: Emergency COMPLAINT: - SHORTNESS OF BREATH DIAGNOSES: - Anxiety disorder, unspecified - Essential (primary) hypertension - Other alf (current) drug therapy 08/02/2022 16:41 [facility] [place] TYPE: Emergency COMPLAINT: - ANXIETY [facility]22 20:[facility] COMPLAINT: - Anxiety DIAGNOSES: - Anxiety disorder, unspecified - Anxiety 04/26/2022 07:18 [facility] OR [facility] TYPE: Emergency COMPLAINT: - chest pain; shortness of breath DIAGNOSES: - Other chest pain - Chest Pain - chest pain; shortness of breath - Panic Attack 04/20/2022 08:40 [facility] TYPE: Emergency COMPLAINT: - ground level fall DIAGNOSES: - Personal history of transient ischemic attack (TIA), and cerebral infarction without residual deficits - Unspecified fall, initial encounter - Unspecified injury of head, initial encounter - Fall - ground level fall 04/18/2022 05:10 [facility] OR [facility] TYPE: Emergency COMPLAINT: - Anxiety Attack DIAGNOSES: - Panic disorder [episodic paroxysmal anxiety] - Anxiety - Anxiety Attack 04/09/2022 13:24 [facility] ID TYPE: Emergency DIAGNOSES: - Panic disorder [episodic paroxysmal anxiety] - Anxiety 03/31/2022 21:36 [facility] COMPLAINT: - TVP- Back pain DIAGNOSES: - Other chronic pain - Pain in thoracic spine - Back Pain - TVP- Back pain 02/25/2022 10:49 [facility] TYPE: Emergency COMPLAINT: - UNABLE TO SEE, SOB 02/24/2022 06:17 [facility] TYPE: Emergency COMPLAINT: - NAUSEA DIAGNOSES: - Allergy status to other drugs, medicaments and biological substances - Heart failure, unspecified - Hypomagnesemia - Nausea - Other press tender long goods (current) drug therapy - Pure hypercholesterolemia, unspecified - Unspecified atrial fibrillation 11/21/2021 11:05 [facility] [place] TYPE: Emergency COMPLAINT: - RIB PAIN 11/17/2021 11:45 [facility] [place] TYPE: Emergency COMPLAINT: - WEAKNESS DIAGNOSES: - Allergy status to other drugs, medicaments and biological substances - Contact with and (suspected) exposure to COVID-19 - Heart failure, unspecified - Hyperlipidemia, unspecified - Hypertensive heart disease with heart failure - CHCF (current) use of anticoagulants - Opioid abuse, uncomplicated - Other press tender long goods (current) drug therapy - Unspecified atrial fibrillation - Weakness 11/11/2021 09:10 [facility] [place] TYPE: Emergency COMPLAINT: - FLU SYMPTOMS DIAGNOSES: - Allergy status to other drugs, medicaments and biological substances - Essential (primary) hypertension - silver solderer (current) use of opiate analgesic - Other press tender long goods (current) drug therapy - Pure hypercholesterolemia, unspecified - Unspecified atrial fibrillation - Weakness 11/08/2021 13:24 [facility] [place] TYPE: Emergency COMPLAINT: - FLU SYMPTOMS DIAGNOSES: - Allergy status to other drugs, medicaments and biological substances - Contact with and (suspected) exposure to COVID-19 - Diarrhea, unspecified - Essential (primary) hypertension - Hypo-osmolality and hyponatremia - CHCF (current) use of opiate analgesic - Other press tender long goods (current) drug therapy - Pure hypercholesterolemia, unspecified - Unspecified atrial fibrillation 10/28/2021 19:59 [facility] [place] TYPE: Emergency COMPLAINT: - FLU SYMPTOMS DIAGNOSES: - Contact with and (suspected) exposure to COVID-19 - Diarrhea, unspecified - Heart failure, unspecified - Hypertensive heart disease with heart failure - silver solderer (current) use of anticoagulants - Other press tender long goods (current) drug therapy - Pure hypercholesterolemia, unspecified - Viral intestinal infection, unspecified INPATIENT VISIT TRACKING (12 MO.) 02/25/2022 13:27 [facility] [place] TYPE: Medical Surgical COMPLAINT: - ACUTE CVA DIAGNOSES: - Allergy status to other drugs, medicaments and biological substances - Allergy status to other drugs, medicaments and biological substances - Benign prostatic hyperplasia with lower urinary tract symptoms - Benign prostatic hyperplasia with lower urinary tract symptoms - 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 - 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 - Cerebral infarction, unspecified - Chronic atrial fibrillation, unspecified - Chronic atrial fibrillation, unspecified - Chronic pain syndrome - Chronic pain syndrome - Contact with and (suspected) exposure to COVID-19 - Contact with and (suspected) exposure to COVID-19 - Do not resuscitate - Do not resuscitate - Enterocolitis due to Clostridium difficile, not specified as recurrent - Enterocolitis due to Clostridium difficile, not specified as recurrent - Heart failure, unspecified - Heart failure, unspecified - Homonymous bilateral field defects, 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, right side - Hypertensive heart disease with heart failure - Hypertensive heart disease with heart failure - Hypo-osmolality and hyponatremia - Hypo-osmolality and hyponatremia - Metabolic encephalopathy - Metabolic encephalopathy - NIHSS score 18 - NIHSS score 18 - Opioid dependence, uncomplicated - Opioid dependence, uncomplicated - Other press tender long goods (current) drug therapy - Other press tender long goods (current) drug therapy - Other specified anxiety disorders - Other specified anxiety disorders - Other specified postprocedural states - Other specified postprocedural states - Paroxysmal atrial fibrillation - Paroxysmal atrial fibrillation - Presence of left artificial hip joint - Presence of left artificial hip joint - Pure hypercholesterolemia, unspecified - Pure hypercholesterolemia, unspecified 11/29/2021 00:00 [facility] [place] TYPE: Medical Surgical DIAGNOSES: - Bacteremia - Bacteremia - Enterococcus as the cause of diseases classified elsewhere - Enterococcus as the cause of diseases classified elsewhere - Evaluation for infected endocarditis - Infected endocarditis 11/21/2021 13:[address] [facility] [place] TYPE: Critical Care COMPLAINT: - ATRIAL FIBRILLATIOJ RVR, ENCEPHALOPATHY DIAGNOSES: - Allergy status to other drugs, medicaments and biological substances - Allergy status to other drugs, medicaments and biological substances - Anxiety disorder, unspecified - Anxiety disorder, unspecified - Bacteremia - Bacteremia - Cerebral edema - Cerebral edema - Contact with and (suspected) exposure to COVID-19 - Contact with and (suspected) exposure to COVID-19 - Dehydration - Dehydration - Dorsalgia, unspecified - Dorsalgia, unspecified - Enterocolitis due to Clostridium difficile, not specified as recurrent - Enterocolitis due to Clostridium difficile, not specified as recurrent - Essential (primary) hypertension - Essential (primary) hypertension - Hypokalemia - Hypokalemia - Hypomagnesemia - Hypomagnesemia - Insomnia, unspecified - Insomnia, unspecified - silver solderer (current) use of anticoagulants - CHCF (current) use of anticoagulants - Metabolic encephalopathy - Metabolic encephalopathy - Other chronic pain - Other chronic pain - Other fall on same level, initial encounter - Other fall on same level, initial encounter - Other alf (current) drug therapy - Other alf (current) drug therapy - Other specified postprocedural states - Other specified postprocedural states - Permanent atrial fibrillation - Permanent atrial fibrillation - Presence of left artificial hip joint - Presence of left artificial hip joint - Presence of prosthetic heart valve - Presence of prosthetic heart valve - Pure hypercholesterolemia, unspecified - Pure hypercholesterolemia, unspecified - Repeated falls - Repeated falls - Sepsis, unspecified organism - Syndrome of inappropriate secretion of antidiuretic hormone - Syndrome of inappropriate secretion of antidiuretic hormone - Traumatic subarachnoid hemorrhage without loss of consciousness, initial encounter - Traumatic subarachnoid hemorrhage without loss of consciousness, initial encounter - Unspecified atrial fibrillation [email or web address]
[2022-09-24] MEDS ORDERED: HYDROXYZINE HCL25 MG PO (10:54)
[2022-09-24] MEDS ORDERED: BUSPIRONE HCL5 MG PO (10:55)
[2022-09-24] MEDS ORDERED: TRAZODONE HCL50 MG PO (10:55)
[2022-09-24] MEDS ORDERED: LORAZEPAM1 MG PO (10:56)
[2022-09-24] MEDS ORDERED: LATANOPROST2.5 ML OU (10:57)
[2022-09-24] MEDS ORDERED: VITAMIN D31250 MC1 PO (10:58)
[2022-09-24 11:19] VITALS: BP 150/66
--- NOTE | 2022-09-24 12:30 | NUR ---
PT PULLED IV, CALLING OUT FOR HELP. ASSISTED TO CHAIR WITH 2PA. ASSISTED TO USE URINAL. LUNCH DELIVERED.
--- NOTE | 2022-09-24 13:00 | NUR ---
MEDICATION ADMINISTRATION COMPLETE. PT REPORTS PAIN TO R HIP, CRYO CUFF IN PLACE.
--- NOTE | 2022-09-24 13:28 | NUR ---
patient's medications reconciled using pharmacy records
--- NOTE | 2022-09-24 14:06 | NUR ---
REPORT RECEIVED FROM BRIANNA YANG. THIS RN ASSUMING CARE OF PT. PT REAMINS UP TO CHAIR. CRYO CUFF IN PLACE. IV STARTED PER PROTOCOL TO RIGHT HAND. IV FLUIDS AND BOLUS STARTED. PT TOELRATED WELL. BULK DRESSING IN PLACE TO [facility] IV SITE. PT DENIES ADDITIONAL REQUESTS OR COMPLAINTS. CALL LIGHT WITHIN REACH. CHAIR ALARM ON.
--- NOTE | 2022-09-24 14:56 | NUR ---
THIS RN TO ROOM ROLAND HECK ON PT. PT RESTING IN CHAIR WITH EYES CLOSED. RESPRIATIONS EVEN AND UNLABORED. CALL LIGHT WITHIN REACH. PT ALLOWED TO REST. CHAIR ALARM ON.
[2022-09-24 15:18] VITALS: BP 143/58
--- NOTE | 2022-09-24 15:52 | NUR ---
ASSESSMENT AND MEDICATION DUE. PT REMAINS UP TO CHAIR, RESTING WITH EYES CLOSED. PT RESPONDS TO VOICE. PT REPORTS NEED TO VOID. PT UP TO STAND WITH FWW AND 1 PERSON ASSIST. PT CRIES OUT IN PAIN FROM RIGHT HIP. PT ABLE TO VOID 50ML DARK YELLOW URINE IN URINAL, OTHERWISE HAS ALREADY SATURATED DEPENDS. NAHUN CARE DONE. DEPENDS CHANGED. PT BACK TO CHAIR. ASSISTED WITH POSITIONING FOR COMFORT. PT CRIES OUT IN PAIN WHENEVER RIGHT HIP OR NEAR RIGHT HIP IS TOUCHED. FLACC SCORE OF 4/10. SCHEDULED PAIN MEDICAITON GIVEN. PT REMAINS OREINTED TO SELF AND EVENTS. PT ABLE TO RECALL THAT HE FELL AND THAT IS WHY HIS HIP HURTS. PT UNABLE TO STATE DATE OR PLACE OR IDENTIFY THAT HE IS AT THE HOSPITAL. PT UNABLE TO IDENTIFY LOWER LEGS WHEN TOUCHED. RIGHT HIP BRUISED AND SKIN IS TIGHT. RIGHT PEDIAL AND TIBIALIS PULSES FOUND WITH DOPPLER. CRY CUFF IN PLACE BUT FOUND TO BE WARM TO TOUCH. PROBLEM SOLVING DONE, UNABLE TO MAKE CRYOCUFF CYCLE COLD WATER, NEW CRYO CUFF OBTAINED. PT BLIND AT BASELINE. UNABLE TO TRACK WITH EYES. PITTING EDEMA CONTINUES IN BLE. PT REMAINS UP TO CHAIR, NO ADDITIONAL REQEUSTS OR COMPLAINTS. MEDICAITON GIVEN. CALL LIGHT WITHIN REACH. CHAIR ALARM ON.
--- NOTE | 2022-09-24 16:47 | NUR ---
THIS RN TO ROOM TO CHECK ON PT. PT REMAINS UP TO CHAIR. PT SEEN TO CRY OUT AT TIMES WHEN SHIFTING HIS POSITION. PT CLUTCHES AT RIGHT HIP. PT FALLS BACK TO SLEEP QUICKLY. RESPRIRATIONS EVEN AND UNLABORED. CALL LIGHT WITHIN REACH. CHAIR ALARM ON.
--- NOTE | 2022-09-24 17:30 | NUR ---
PT CALLING OUT FOR HELP. PT REPORTS NEED TO VOID. PT UP WITH 2 PERSON ASSIST AND FWW TO STAND. PT FALLS BACK TO CHAIR TWICE. PT VOIDS 50ML DARK YELLOW URINE INTO URINAL WITH ASSITANCE, DEPENDS ALSO SOILED. NAHUN CARE DONE. DEPENDS CHANGED. PT BACK TO CHAIR AND NOW RESTING WITH EYES CLOSED. PT CRIES OUT "OWE" ONCE BUT IS OTHERWISE ABLE TO MOVE WITHOUT SIGNS OF PAIN. NO ADDITIONAL NEEDS AT THIS TIME. CALL LIGHT WITHIN REACH. CHAIR ALARM ON. CRYO CUFF IN PLACE.
[2022-09-24 17:32] VITALS: BP 147/56
--- NOTE | 2022-09-24 18:06 | NUR ---
PT HERE AFTER FALL FOR DEHYDRATION. PT UP TO STAND THIS SHIFT WITH 1-2 PERSON ASSIST AND FWW. PT TOELRATING 2G SODIUM DIET WITH GOOD APPTITIE. PT CRIES OUT IN PAIN AT TIMES, DOES NOT RATE PAIN FOR THIS RN. FLACC SCORES TAKEN. SCHEDULED PAIN MEDICAITON GIVEN. LARGE HEMATOMA TO RIGHT HIP, AREA TIGHT, PULSES OBTAINED BY DOPPLER, MD AWARE. CRYO CUFF IN PLACE. PT ORIENTED TO SELF AND SOME EVENTS BUT OTHERWISE DISORIENTED, HAS PULLED 2 IVS THIS SHIFT, BULK DRESSING CURRENTLY OVER IV SITE. +2-3 EDEMA IN BLE SEEN. PT VOIDING QUANITTY SUFFICIENT, URGE INCONTINANCE. PHYSICAL THERAPY AND OCCUPATIONAL THERAPY INVOLVED. NO ADDITIONAL REQUESTS OR COMPLAINTS. BED/CHAIR ALARM FOR SAFETY.
--- NOTE | 2022-09-24 18:10 | NUR ---
MEDICATION DUE. THIS RN TO ROOM. PT ENCORUAGED TO GET BACK TO BED FOR THE EVENTING. PT AGREES. PT TRANSERE TO BED WITH 2 PERSON ASSIST AND FWW. PT BECOMES VERY AGITATED AND IS CLIMBING OUT OF BED. PT TRANSFERED BACK TO CHAIR WITH 2 PERSON ASSIST. PT CONTINUES TO BE AGIATATED, HIGH ANXIETY, AND CRYING OUT "I NEED HELP. OH PLEASE GOD." EVENING MEDIATION GIVEN. THIS RN, AND STEPHANIE MARVIN, IN ROOM WITH PT TO KEEP PT SAFE. PT TRYING TO CLIMB OVER FURNATURE, ATTEMPTING TO PULL OUT IV, CRYNG OUT FOR "HELP." PT UNSAFE TO WALK OR STAND ON HIS OWN. PT FALLS BACK TO CHAIR/BED REPEATDLY WHEN LEGS BUCKLE OR FROM "MY HIP!." 1839 - DR REYES CALLED. STATES TO GIVE 2100 BUSPAR EARLY. NO ADDITOINAL NEW ORDERS. MEDICATION GIVEN WELL AN ADDITIONAL PRN NORCO TO ASSIST WITH ANY POSSIBLE PAIN. FLACC SCORE OF 7/10 (MOSTLY RELATED TO HIGH LEVEL ANXIETY AND ACTIVITY). 1899 - PT BECOMING MORE AGRESSIVE. SECURITY CALLED TO BEDSIDE AND STANDING WITH PT. PT UP TO CHAIR WITH WALKER AND SITTING/STANDING FREELY AND REPEADLY. PT CONTINUES TO COLAPSE BACK TO CHAIR AT TIMES. THIS RN AND STEPHANIE MARVIN REMAIN AT BEDSIDE. 1919 - REPORT GIVEN TO BRIANNA WALDRON WHO IS ASSUMING CARE OF PT. SECURITY X2 REMAIN AT BEDSIDE WITH PT.
--- NOTE | 2022-09-24 19:30 | NUR ---
2 SECURITYY HERE TO ASSIST WITH KEEPING PT SAFE. PT IS UP TO HIS CHAIR. WILL NOT SIT BUT CONTINUALLY WANTS TO STAND AND AMBULATE WITH FWW. HIS RIGHT HIP IS PAINFULA ND HAS A LARGE BRUISE. WHEN HE ATTEMPTS TO WEIGHT ON RIGHT HIP HIS RIGHT KULDEEP NATSAHA. PT DOES NOT TAKE DIRECTION. CALLS OUT FOR HELP. STAFF IS REASSURRING PT HE IS SAFE.
[2022-09-24 21:20] VITALS: BP 135/113
--- NOTE | 2022-09-24 22:33 | NUR ---
PT ASSISTED BACK TO BED BY 3 STAFF. HE IS REASSURED OF HIS SAFETY. PT HAS A CLEAN GOWN. SECURITY IS AT THE BEDSIDE. CALL LIGHT IS IN REACH AND PT IS CLOSE TO THE NURSES STATION. PT DOES NOT SEEM TO BE ABLE TO FOLLOW INSTRUCTION. CONTINUALLY CALLS FOR HELP.
--- NOTE | 2022-09-24 23:07 | NUR ---
PT IS LYING QUIETLY ON HIS BED. BED ALARM IS ON. PT IS IN VIEW OF STAFF AT NURSES STATION.
--- NOTE | 2022-09-25 01:17 | NUR ---
PT CONTINUES TO SLEEP. ROOM TEMP IS WARMED TO 72. PT APPEAR STO BE COMFORTABLE. HE IS IN VIEW OF NURSING STAFF. BED ALARM IS ON.
--- NOTE | 2022-09-25 03:54 | NUR ---
PT IS ABLE TO MOVE IN BED. SHIFTED HIS FEET BACK ONTO THE BED, PULLED HIS COVERS OVER HIS BODY. THIS RN PLACED A WARMED BLANKET ON PT, HE DID NOT AWAKEN.
--- NOTE | 2022-09-25 06:55 | NUR ---
ATTEMPTED TO DO VS ON PT THIS AM. HE WOULD NOT HOLD STILL. PT HAD TO VOID. HELD URINAL FOR HIM AND HE VOIDED 100 DARK YELLOW URINE. A CLEAN BRIEF WAS PLACED. PT WAS BOOSTED AND REPOSITIONED IN BED. HE HAS A PILLOW UNDER HIS RIGHT SHOULDER FOR COMFORT. BED ALARM IS ON. PT WENT BACK TO SLEEP AFTER CARES.
--- NOTE | 2022-09-25 07:08 | NUR ---
REPORT RECEIVED FROM BRIANNA WALDRON. PT RESTING IN BED WITH EYES CLOSED. RESPIRATIONS EVEN AND UNLABORED. BED RAILS UP. CALL LIGHT WITHIN REACH. BED ALARM ON. VANITA STATES IN REPORT THAT PT HAS BEEN ABLE TO SLEEP OFF AN ON SINCE 2299 LAST NIGHT. SHE ALSO STATES THE 1914 BUSPAR WAS NOT GIVEN.
--- NOTE | 2022-09-25 09:34 | NUR ---
THIS RN TO ROOM TO CHECK ON PT. PT CONTINUES RESTING WITH EYES CLOSED. RESPRIRATIONS EVEN AND UNLABORED. BED RAILS UP. CALL LIGHT WITHIN REACH. BED ALARM ON. PT ALLOWED TO REST.
[2022-09-25 09:39] VITALS: BP 129/56
--- NOTE | 2022-09-25 10:33 | NUR ---
THIS RN TO ROOM TO CHECK ON PT. PT CONTINUES RESTING IN BED WITH EYES CLOSED. HEAD OF BED AT 30 DEGREES. PT LYING ON LEFT SIDE. BED RAILS UP. CALL LIGHT WITHIN REACH. RESPRIATIONS EVEN AND UNLABORED. BED ALARM ON.
--- NOTE | 2022-09-25 11:28 | NUR ---
THIS RN TO ROOM TO CHECK ON PT. PT AWAKE AND INTERACTING APPROPRIATLY. PT REPORTS NEED TO VOID. PT ASSISTED WITH VOIDING IN URINAL. VOIDS 175ML DARK YELLOW URINE. NAHUN CARE DONE. DEPENDS CHANGED. PT ASSISTED WITH PUTTING ON CLOTHES FROM HOME. PT UP TO CHAIR WITH 2 PERSON ASSIST AND FWW. PT GRIMICES WITH PAIN WITH ACTIVITY BUT OTHERWISE DENIES PAIN. CRYO CUFF ICE REFILLED AND CRYO CUFF PLACED TO RIGHT HIP. PT DRIFTS BACK TO SLEEP AGAIN ONCE UP TO CHAIR. NO ADDITIONAL NEEDS AT THIS TIME. CALL LIGHT WITHIN REACH. CHAIR ALARM ON.
--- NOTE | 2022-09-25 12:11 | NUR ---
PT CALLING OUT FOR "HELP." PT HAS DUMPED HIS ICE WATER OVER HIS ARMS AND BLANKET. PT DRIED OFF. NEW BLANKET PROVIDED. NEW FINGERLESS GLOVE PLACED OVER IV SITE, SITE REMAINS WNL. LUNCH DELIVERE TO PT. PT EATING INDEPENDANTLY. NO ADDITIONAL REQUESTS OR COMPLAINTS. CALL LIGHT WITHIN REACH. CHAIR ALARM ON.
--- NOTE | 2022-09-25 12:28 | NUR ---
PT CRYING OUT AGAIN "HELP" "PLEASE HELP ME" "I NEED SOME AIR." SAME BEHAVIOURS NOTED YESTERDAY EVENING BEFORE PT BECAME UNCONSOLABLE. SERIQUEL GIVEN. THIS RN REMAINS AT BEDSIDE WITH PT. PT REQUIRING 1:1 OBSERVATION AND ASSISTANCE TO STAY SAFE. PT GROPING ARROUND AND TRYING TO CLIMB OUT OF CHAIR AND ON FURNATURE. PT INSISTING ON GETTING UP. PT TRIES TO GET UP TO STAND AND FALLS BACK TO CHAIR. PT REPORTS PAIN IN RIGHT HIP. UNABLE TO RATE PAIN. 6/10 FLACC SCORE. PRN PAIN MEDICATION GIVEN. PT BACK TO RECLINED POSITION AND THEN UP AGAIN. THIS PATTERN CONTINUES FOR 45 MINUTES WHEN PT BEGINS TO CALM. PT NOW RESTING IN CHAIR WITH EYES CLOSED. CHAIR ALARM ON. CALL LIGHT WITHIN REACH. QUOC HAYWOOD RN, AT BEDSIDE WITH PT. TO ENSURE SAFETY.
--- NOTE | 2022-09-25 14:09 | NUR ---
AFTERNOON ASSESSMENT DUE. PT CONTINUES TO BE AGITATED. PT TRYING TO GET UP AND OUT OF CHAIR. PT STATES "OH GOD, HELP ME" AND CONTINUES TO STATE HE IS NOT FEELING WELL. PT DISOREINTED TO ALL BUT SELF AND TOWN. PT RESTLESS AND TRYING TO GET UP OUT OF CHAIR. PT UP AND DOWN TO STAND AND SIT. PT UP TO VOID, VOIDS 50ML DARK YELLOW URINE. PT UP TO COMODE. UNABLE TO CALM PT. SEROQUEL TITRATED UP TO FULL DOSE (SEE MAR). HEART TONES REMAIN REGULAR. LUNG SOUNDS CLEAR. +2 PITTING EDEMA CONTINUES IN BLE. PT SENSITIVE TO TOUCH WHEN FEELING LOWER EXTREMITIES. TIBILIAS AND PEDIAL PULSES FOUND WITH DOPPLER. VITAL SIGSN STABLE. DR. REYES TO BEDSIDE, UPDATED ON PT STATUS AND ASSESSMENT. DR REYES STATES TO HOLD AFTERNOON NORCO DOSE. NEW ORDERS PLACED. THIS RN REMAINS AT BEDSIDE WITH PT.
[2022-09-25 14:44] VITALS: BP 133/53
--- NOTE | 2022-09-25 14:56 | NUR ---
THIS RN REMAINED AT BEDSIDE UNTIL THIS TIME. PT CONTINUES TO BE ANXIOUS AND CRYING OUT "OH GOD" AND "HELP ME PLEASE." PT UP AND DOWN FROM CHAIR TO STAND. PT NOT ALLOWED TO WALK AT THIS TIME FOR SAFETY PT FALLS BACK TO CHAIR SPONTANIOUSLY. BRIANNA YANG TAKING OVER 1:1 OBSERVATIONS. TREY AT BEDSIDE. CALL LIGHT WITHINR EACH.
--- NOTE | 2022-09-25 16:06 | NUR ---
THIS RN TO ROOM TO CHECK ON PT. BREAK GIVEN TO BRIANNA YANG. THIS RN AT BEDSIDE FOR 20 MINUTES WITH PT. FREQUENCEY WITH WHICH PT CALLS OUT DECREASING. PT RESTING OCCATIONALLY (EVERY 10-30 SECONDS). PT CONTINUES TO REPORT PAIN IN RIGHT HIP. DR REYES CALLED FOR LIDOCANE PATCH. ORDERS GIVEN, ENTERED, REPEAT BACK PERFORMED. TREY BACK TO BEDSIDE. PT RESTING IN CHAIR WITH EYES CLOSED. 1:1 OBSERVATION CONTINUES BY BRIANNA YANG
--- NOTE | 2022-09-25 16:13 | NUR ---
PT HERE AFTER FALL FOR DEHYDRATION. PT UP TO STAND THIS SHIFT WITH 1-2 PERSON ASSIST AND FWW. PT TOELRATING 2G SODIUM DIET WITH POOR APPTITIE. PT CRIES OUT IN PAIN AT TIMES, DOES NOT RATE PAIN FOR THIS RN. FLACC SCORES TAKEN. SCHEDULED AND PRN PAIN MEDICATION GIVEN. LARGE HEMATOMA TO RIGHT HIP, AREA TIGHT, PULSES OBTAINED BY DOPPLER, MD AWARE. CRYO CUFF REMOVED PT IS VERY AGITATED WITH CRYO CUFF. PT ANXIOUS THROUGH MUCH OF SHIFT. PRN SEROQUEL GIVEN, MD AWARE. LIDOCANE PATCH FOR PAIN. MEDICATIONS ADJUSTED. 1:1 OBSERVATION FOR MUCH OF SHIFT. PT ORIENTED TO SELF, TOWN AND SOME EVENTS BUT OTHERWISE DICOREINTED. BULK DRESSING CURRENTLY OVER IV SITE. +2-3 EDEMA IN BLE SEEN. PT VOIDING QUANITTY SUFFICIENT, URGE INCONTINANCE. PHYSICAL THERAPY AND OCCUPATIONAL THERAPY ORDERED. BED/CHAIR ALARM FOR SAFETY.
--- NOTE | 2022-09-25 16:38 | NUR ---
PT CONTINUES TO BE RESTLESS. ALTHOUGH HE IS STAYING IN THE CHAIR AT THIS TIME. PT UP TO STAND AND VOID IN URINAL. NAHUN CARE DONE. LIDOCANE PATCH APPLIED TO RIGHT HIP. PT BACK TO CHAIR. 1:1 OBSERVATION CONTINUES, BRIANNA YANG AT BEDSIDE. CALL LIGHT WITHIN REACH.
--- NOTE | 2022-09-25 16:43 | EKG ---
[facility] [address], [place] [address] Signed Atrial fibrillation Prolonged QT Abnormal ECG When compared with ECG of 24-SEP-2022 07:53, (Unconfirmed) No significant change was found Confirmed by NATALIE REYES MD ([id number]) on 09/25/2022 4:42:45 PM Electronically Signed By: NATALIE REYES MD 09/25/22 1643 PATIENT NAME: MOSHE ROBERTS Electrocardiogram DATE OF : 41 PHYSICIAN: NATALIE REYES MD REPORT #: [id number] REPORT IS CONFIDENTIAL AND NOT TO BE RELEASED WITHOUT AUTHORIZATION
--- NOTE | 2022-09-25 17:15 | NUR ---
MEDICAITON DUE. PT EATING PASTA WITH 1:1 RN'S ASSISTANCE. PT UP TO STAND AND VOIDS IN URINAL. NAHUN CARE DONE. DEPENDS CHANGED. MEDICATION GIVEN. PT REMAINS UP TO CHAIR. VITAL SIGNS STABLE. 1:1 OBSERVATION CONTINUES. NO ADDITIONAL NEEDS AT THIS TIME. CALL LIGHT WITHIN REACH. BRIANNA YANG, AT BEDSIDE WITH PT.
[2022-09-25 17:20] VITALS: BP 146/69
--- NOTE | 2022-09-25 18:36 | NUR ---
DR. REYES UPDATED BY PHONE. NEW MEDICATION ORDERS. THIS RN TO ROOM. PT NOW RESTING WITH EYES CLOSED BUT SEEN TO AWAKEN FROM TIME TO TIME, CRINGE, HOLD HIS RIGHT HIP, AND ATTEMPT TO REPOSITION. FLACC SCORE OF 4/10, SEE MAR FOR MEDICATION GIVEN. PT AWAKENS TO VOICE AND TAKES MEDICATION CALMLY. PT DECLINES OFFER TO GET BACK TO BED. CHAIR ALARM SET. NO ADDITIONAL REQUESTS OR COMPLAINTS. CALL LIGHT WITHIN REACH.
--- NOTE | 2022-09-25 19:20 | NUR ---
RECEIVED REPORT FROM DAY NURSE. PT SITTING UP IN CHAIR. APPEARS TO BE SLEEPING COMFORTABLY. RESPIRATIONS EVEN AND REGULAR.
--- NOTE | 2022-09-25 20:07 | NUR ---
PATIENT IS STILL RESTING IN THE CHAIR WITH EYES CLOSED.
--- NOTE | 2022-09-25 21:00 | NUR ---
PT ASSESSMENT AND MEDICATION ADMINISTRATION COMPLETED. PT IS ANXIOUS, 1:1 SITTER AT BEDSIDE.
[2022-09-25 21:10] VITALS: BP 140/95
--- NOTE | 2022-09-25 21:50 | NUR ---
PT MOANING, RESTLESS, AND C/O PAIN. PRN OXYCODONE ADMINISTERED. SITTTER REMAINS AT BEDSIDE.
--- NOTE | 2022-09-25 23:03 | NUR ---
TO PT ROOM FOR MEDICATION ADMINISTRATION. PT IS ANXIOUS/AGITATED. SITTER AT BEDSIDE. PT ATE 100% SNACK.
--- NOTE | 2022-09-26 00:48 | NUR ---
ASSISTED MOLD CARRIER WITH PT TRANSFER TO CHAIR. PT CONTINUES TO BE ANXIOUS AND AGITATED DESPITE PRN SEROQUEL.
--- NOTE | 2022-09-26 02:07 | NUR ---
PRN PAIN MEDICATION ADMINISTERED. PT REMAINS RESTLESS. 1:1 SITTER AT BEDSIDE.
--- NOTE | 2022-09-26 04:21 | NUR ---
PT IS ANXIOUS AND RESTLESS. CONSTANTLY MOVING FROM SITTING TO STANDING. DIFFICULT TO DISTRATCT OR CONSOLE. 1:1 SITTER AT BEDSIDE.
--- NOTE | 2022-09-26 04:50 | NUR ---
PT HAS BEEN EXTREMELY AGITATED THROUGHOUT THE NIGHT WITH CONSTANT MOVEMENT AND CALLING OUT FOR HELP DESPITE PRN MEDICATIONS. DUE TO ANXIETY AND AGITATION LEVEL SECOND DOSE OF PRN SEROQUEL ADMINISTERED.
[2022-09-26 06:12] VITALS: BP 94/72
--- NOTE | 2022-09-26 06:24 | NUR ---
UPDATED ON PT STATUS OVERNIGHT REGARDING AGITATION/ANXIETY. NOTED THAT IT IS CONCERNING FOR FALL RISK STAFF IS NOT ABLE TO REDIRECT PT OR CONSOLE. NO NEW ORDERS ATT.
--- NOTE | 2022-09-26 06:46 | NUR ---
PATIENT IS 1:1 SINCE THE BEGINNING OF THE FORENSIC MATERIALS ENGINEER. PATIENT DOES NOT FOLLOW DIRECTION. ASSISTED 2 STAFF GOING TO THE BATHROOM. MOST OF THE TIMES PATIENT DID NOT WANT HIS PANTS AND UNDERWEAR OFF AND SAT ON THE TOILET FOR QUITE SOME TIME. PATIENT GETS IRRITATED. PATIENT YELLED "HELP" AND ASKED WHAT HELP HE NEEDS. PATIENT STATED " I DONT KNOW". PATIENT DID NOT SLEEP THE WHOLE NIGHT.
--- NOTE | 2022-09-26 07:09 | NUR ---
Patient awake walking in room wt flour mixer by his side to ensure safety. Patient needs continual redirecting, he is very impulsive and at times agitated with cares. Continue to use therapeutic communication with patient. Staff in room at all times assisting [facility] cares.
--- NOTE | 2022-09-26 08:30 | NUR ---
INTO ROOM, PATIENT SITTING UP IN CHAIR WITH EYES CLOSED. CHEO CONTRERAS PATIENT STATE PAID CAREGIVER AT BEDSIDE. CHEO STATES HE STATES HE HAS CAREGIVING HOURS DAILY 0730 TO 1530. HE STATES THE PATIENT HAS RETURNED TO HIS TRAILER FOLLOWING HIS STAY AT [facility]. CHEO STATES THE PATIENT HAD BEEN DOING WELL AND WAS SEEING HIS PCP TO ADJUST HIS MEDICATIONS PRIOR TO HIS ADMISSION. CHEO BELIEVES THE PATIENT SYMPTOMS ARE CAUSED BY MEDICATIONS. CHEO NOTES THE PATIENT IS STILL MOSTLY BLIND, BUT HIS VISION HAS IMPROVED. CHEO IS ABLE TO LEAD THE PATIENT IN THE TRAILER AND WHEN THEY GO OUT IN THE COMMUNITY. CHEO STATES HE BELIEVES THE PATIENT HAS NO FINANCIAL CONCERNS AT THIS TIME. CHEO COOKS, SHOPS AND DOES LAUNDRY FOR THE PATIENT. DEMOGRAPHIC INFORMATION REVIEWED WITH CHEO. CHEO REQUESTS TO BE ADDED TO PATIENT CONATC LIST [phone]. EMAIL SENT TO ADMISSIONS TO UPDATE CONTACTS.
--- NOTE | 2022-09-26 09:16 | NUR ---
I BILINGUAL ADMINISTRATIVE ASSISTANT IN ROOM 1:1 W PT. PT IN CHAIR STATING "HELP ME,. HELP ME, HELP ME". WHEN PT ASKED WHAT HE NEEDS HE STATES " I NEED HELP PLEASE". "PLEASE GOD". PT THEN STATES "I NEED TO PEE REALLY BAD". PT STOOD UP FROM CHAIR AND ASSISTED W URINAL. PT HAD ALREADY STARTED TO VOID I BILINGUAL ADMINISTRATIVE ASSISTANT WAS TRYING TO PLACE URINAL. PERIC CARE PERFORMED. PT BACK TO CHAIR. LEGS ELEVATED. BLANKETS PROVIDED. CHAIR ALARM SET. 1:1 CONTINUED
--- NOTE | 2022-09-26 09:25 | NUR ---
Patient sitting up in chair resting, eyes closed, respirations even and non labored. Patient has no notable distress at this time. IV site intact/patent. Ice to right hip, pt tolerating well. No current needs, personal supplies and call light within reach.
--- NOTE | 2022-09-26 10:19 | NUR ---
PT RESTING IN CHAIR. 1:1 CONTINUED W THIS WAD LUBRICATOR
--- NOTE | 2022-09-26 10:48 | NUR ---
Patient resting in chair, eyes closed, respirations even and non labored. Patient has no notable distress. Call light within reach. HALL SUPERVISOR at bedside monitoring patient.
--- NOTE | 2022-09-26 12:09 | NUR ---
Patient slept for approxiately three hours. Patient now awake in pleasant mood, alert to self. Lunch to patient. LOCKSTITCH SLEEVE SETTER assisting patient with his lunch. Patient has no notable distress at this time. Close to RN station. LOCKSTITCH SLEEVE SETTER in room assisting with cares.
--- NOTE | 2022-09-26 12:30 | NUR ---
pt working w OT.
--- NOTE | 2022-09-26 13:43 | NUR ---
i ophthalmic medical technologist 1:1 w pt. I LOGISTICS DIRECTOR ATTEMPTED TO COMPLETE VITALS BUT PT BECAME AGGITATED. BP CUFF REMOVED AND RN NOTIFIED
--- NOTE | 2022-09-26 14:14 | NUR ---
Patient becoming agitated. Patient states "please help"..."don't help me"..."oh no, please". Patient reports his right shoulder is painful as well. Pending X-ray results for his shoulder. Oxycodone 10mg po and seroquel 25mg po admin at this time. Patient offered ice cream at this time, he tolerated a few bites but remains anxious. SOFTWARE SUPPORT REPRESENTATIVE with patient at all times fo monitoring. Close to RN station at this time.
--- NOTE | 2022-09-26 14:21 | NUR ---
IMAGING IN WITH PT AT THIS TIME. WILL CHECK BACK
[2022-09-26 15:04] VITALS: BP 132/62
--- NOTE | 2022-09-26 15:25 | EKG ---
[facility] [address] [place] [address] Signed Normal sinus rhythm Normal ECG When compared with ECG of 24-SEP-2022 07:55, Sinus rhythm has replaced Atrial fibrillation Nonspecific T wave abnormality no longer evident in Inferior leads Confirmed by NATALIE REYES MD ([id number]) on 09/26/2022 3:24:52 PM Electronically Signed By: NATALIE REYES MD 09/26/22 1525 PATIENT NAME: MOSHE ROBERTS Electrocardiogram DATE OF : 41 PHYSICIAN: NATALIE REYES MD REPORT #: [id number] REPORT IS CONFIDENTIAL AND NOT TO BE RELEASED WITHOUT AUTHORIZATION
[2022-09-26 16:49] VITALS: BP 153/53
--- NOTE | 2022-09-26 19:18 | NUR ---
REPORT RECEIVED FROM DAY SHIFT RN. PT SITTING IN RECLINER WITH EYES CLOSED. RESPIRATIONS EVEN. LEGS ELEVATED. CHAIR ALARM IN PLACE. CALL LIGHT IN REACH.
--- NOTE | 2022-09-26 19:29 | NUR ---
ASSISTED PATIENT USING THE URINAL. PATIENT STATED "IM COLD". WARM BLANKET PROVIDED. CHAIR ALARM IS ON.
[2022-09-26 20:19] VITALS: BP 137/55
--- NOTE | 2022-09-26 20:20 | NUR ---
ASSISTED USING URINAL. CHANGED INCONTINENT PULL UP. WARM BLANKET PROVIDED. PATIENT STILL UP IN THE CHAIR RESTING WITH EYES CLOSED. CHAIR ALARM ON FOR SAFETY. V/S AND I&O'S TAKEN AND CHARTED.
--- NOTE | 2022-09-26 21:26 | NUR ---
PATIENT IS STILL RESTING UP IN THE CHAIR WITH EYES CLOSED. PATIENT ADJUSTING HIMSELF EVERY NOW AND THEN. CHAIR ALARM REMAIN ON FOR SAFETY.
--- NOTE | 2022-09-26 22:20 | NUR ---
ASSISTED PATIENT USED THE URINAL. PRIMARY RN IN THE ROOM WITH PATIENT. WARM BLANKET TO PATIENT.
--- NOTE | 2022-09-26 22:30 | NUR ---
EVENING ASSESSMENT COMPLETE. SCHEDULED MEDS ADMIN PER EMAR. PT REPORTS RIGHT HIP PAIN 10/05. PRN FOR PAIN ADMIN PER EMAR. PT SITTING IN RECLINER WITH FEET ELEVATED. ORIENTED TO SELF. PT ANXIOUS AT TIMES, CRIES OUT "HELP." PT SHIVERING. WARM BLANKETS PROVIDED. ASSISTED TO REPOSITION. POWER GENERATION TECHNICIAN IN ROOM FOR CLOSE OBSERVATION. PT DENIES FURTHER NEEDS. CHAIR ALARM IN PLACE.
--- NOTE | 2022-09-27 00:44 | NUR ---
PATIENT IS QUIETLY RESTING UP IN THE CHAIR WITH EYES CLOSED. CHAIR ALARM ON. LEGS UP THIS TIME.
--- NOTE | 2022-09-27 02:01 | NUR ---
PT RESTING IN RECLINER WITH EYES CLOSED. RESPIRATIONS EVEN. LEGS ELEVATED. PT IN VIEW OF NURSES STATION. CHAIR ALARM IN PLACE.
--- NOTE | 2022-09-27 03:33 | NUR ---
PT RESTING IN RECLINER WITH EYES CLOSED. RESPIRATIONS EVEN. PT BRIEFLY WAKES OCCASIONALLY TO REPOSITION BLANKETS. CHAIR ALARM IN PLACE. PT IN VIEW OF NURSES STATION.
--- NOTE | 2022-09-27 05:47 | NUR ---
PATIENT IS STILL RESTING QUIETLY UP IN THE CHAIR WITH EYES CLOSED. SELF REPOSITIONING EVERY NOW AND THEN. CHAIR ALARM IS ON FOR SAFETY.
--- NOTE | 2022-09-27 06:35 | NUR ---
PT RESTING IN RECLINER WITH EYES CLOSED. RESPIRATIONS EVEN. PT STIRS OCCASIONALLY. PT IN VIEW OF NURSES STATION. CHAIR ALARM IN PLACE.
--- NOTE | 2022-09-27 07:09 | NUR ---
REPORT RECEIVED FROM BRIANNA WALTON. PT RESTING IN CHAIR WITH EYES CLOSED. RESPIRATIONS EVEN AND UNLABORED. PT ALLOWED TO REST UNDESTURBED, CALL LIGHT WITHIN REACH. 1:1 SEMICONDUCTOR TECHNICIAN AT BEDSIDE. CHAIR ALARM ON.
--- NOTE | 2022-09-27 07:43 | NUR ---
PATIENT IS SLEEPING IN HIS CHAIR. BED LINENS CHANGED.
--- NOTE | 2022-09-27 08:31 | NUR ---
THIS RN TO ROOM TO CHECK ON PT. PT CONTINUES RESTING WITH EYES CLOSED, RESPIRATIONS EVEN AND UNLABORED. PTS CAREGIVER TO BEDSIDE, UPDATED ON PT STATUS AND PLAN OF CARE. NO ADDITIONAL NEEDS AT THIS TIME. 1:1 OBSERVATION CONTINUES. CALL LIGHT WITHIN REACH.
[2022-09-27 08:44] VITALS: BP 151/63
--- NOTE | 2022-09-27 08:57 | NUR ---
MORNING ASSESSMENT AND MEDICATION DUE. PT CONTINUES RESTING IN CHAIR WITH EYES CLOSED. PT RESPONDS TO VOICE. PT ABLE TO STATE HIS OWN NAME BUT IS OTHERWISE DISORIENTED. WHEN ASKED WHERE HE IS AND WHAT THE YEAR IS PT STATES "I DON'T KNOW." PT DOES NOT OPEN EYES DURING ASSESSMENT BUT ANSWERS QUESTIONS AND FOLLOWS COMMANDS WHEN ASKED. FLACC SCORE OF 2/10, LIDOCANE PATCH APPLIED TO RIGHT HIP. LUNG SOUNDS CLEAR. HEART TONES REGULAR. EDEMA TO BLE IMPROVING, NOW +1. BRUISE TO RIGHT HIP REMAINS SLIGHTLY OUTSIDE OF MARKED LINE. AREA TIGHT AND PAINFUL TO TOUCH. TIGHTNESS LOCALIZED TO HIP AND MIDWAY DOWN LATERAL THIGH. LEG OTHEWISE SOFT AND NON TENDER. PEDIAL AND TIBIAL PULSES FOUND BY DOPPLER. BOWEL TONES ACTIVE. STOOL SOFTERNERS GIVEN. PT DENIES NEED TO VOID AT THIS TIME. DEPENDS CLEAN AND DRY. PTS CAREGIVER REMAINS AT BEDSIDE, QUESTIONS ANSWERED. WARM BLANKETS PROVIDED AND PT ALLOWED TO REST. CALL LIGHT WITHIN REACH. CHAIR ALARM ON. 1:1 OBSERVATION CONTINUES.
--- NOTE | 2022-09-27 09:41 | NUR ---
THIS RN TO ROOM TO CHECK ON PT. PT AWAKE AND OPENING EYES. PT REPORTS HE IS HUNGRY AND READY FOR BREAKFAST. PT ASSISTED WITH GETTING FOOD, EATES TWO SMALL PIECES OF INDONESIAN TOAST AND THEN REPORTS HE IS FINISHED. PT REPORTS PAIN IN RIGHT HIP, HAS TROUBLE REPOSITIONING RELATED TO PAIN. FLACC SCORE OF 4/10, SEE MAR FOR MEDICATION GIVEN. NO ADDITONAL NEESD AT THIS TIME. CALL LIGHT WITHIN REACH. CHAIR ALARM ON. 1:1 OBSERVATION CONTINUES.
[2022-09-27] MEDS ORDERED: METOPROLOL SUCC50 MG PO (10:12)
[2022-09-27] MEDS ORDERED: BUSPIRONE HCL10 MG PO (10:14)
[2022-09-27] MEDS ORDERED: OLANZAPINE5 MG PO (10:15)
--- NOTE | 2022-09-27 10:28 | NUR ---
THIS RN TO ROOM TO CHECK ON PT. PT FINISHED WITH PHYSICAL THERAPY. DR REYES TO BEDSIDE, UPDATED ON PT STATUS, DISCHRAGE ORDERS GIVEN. IV MAGNESIUM STARTED. PT UP TO RESTROOM WITH 1 PERSON ASSIST AND FWW. PTS CAREGIVER CALLED, MESSAGE LEFT. 1:1 OBSERVATION CONTINUES. NO ADDITIONAL REQUESTS OR COMPLAINTS. CALL LIGHT WITHIN REACH.
--- NOTE | 2022-09-27 10:30 | NUR ---
PATIENT AND I WALKED TO THE BATHROOM. HE NEEDED TO BE DIRECTED WHICH WAY TO GO. NEW TAPED ATTEND. ALSO PUT ON HIS SWEATPANTS.
--- NOTE | 2022-09-27 11:06 | NUR ---
MULTIPLE CALLS TO PATIENT'S CAREGIVER AND MESSAGE LEFT. CALL TO SON. ALL CALLS ARE GOING DIRECTLY TO VOICEMAIL FOR SON AND CAREGIVER.
--- NOTE | 2022-09-27 11:24 | NUR ---
PATIENT IS SLEEPING IN HIS CHAIR.
--- NOTE | 2022-09-27 11:26 | NUR ---
PATIENT SITTING UP AT BESIDE. PATIENT PLANS TO GO TO HIS HOME/RV. PATIENT HAS A FULLTIME CAREGIVER WHO DOES PATIENT CARE, SHOPPING AND MEALS. PATIENT SIGNED HIS IM LETTER AND COPY WAS GIVEN TO PATIENT.
--- NOTE | 2022-09-27 11:36 | NUR ---
THIS RN TO ROOM TO CHECK ON PT. PT REMAINS UP TO CHAIR, RESTING WITH EYES CLOSED. 1:1 OBSERVATION CONTINUES. ADDITIONAL ATTEMPTS AT CONTACTING PTS CAREGIVER MADE, NO ANSWER AT THIS TIME, AWAITING CALL BACK. PT VERBALIZES UNDERSTANDING OF PLAN FOR DISCHRAGE. FLACC SCORE OF 1/10. IV MAGNESIUM COMPLETE. IV FLUISHED AND DC'D PER PROTOCOL. GAUZE AND COBAN APPLIED. PT GETTING DRESSED WITH ELECTRONICS RESEARCH ENGINEER. NO ADDITIONAL REQUESTS OR COMPLAINTS. CALL LIGHT WITHIN REACH. STEPHANIE NETTLES AT BEDSIDE.
[2022-09-27 11:57] VITALS: BP 125/49
--- NOTE | 2022-09-27 11:57 | NUR ---
GOT PATIENT A WARM BLANKET. PATIENT IS RESTING.
--- NOTE | 2022-09-27 11:57 | NUR ---
PT UPDATED ON PLAN FOR DISCHRAGE. PT CALM AND COOPERATIVE AT THIS TIME. PT VERBALIZES UNDERSTANDING OF PLAN FOR DISCHRAGE. VITAL SIGNS STABLE. AWAITING PTS CAREGIVER. 1:1 OBSERVATION CONTINUES.
--- NOTE | 2022-09-27 12:24 | NUR ---
LUNCH DELIVERED TO PT. PT REMAINS UP TO CHAIR, CALM AND COOPERATIVE. PT ASSITED WITH ARRANGING LUNCH TRAY AND FINDING FOOD. PT CRIES OUT IN PAIN WITH REPOSITIONING, OTHERWISE PT DENIES PAIN. FLACC SCORE OF 3/10. PT VERBALIZES UNDERSTANDING OF PLAN FOR DISCHRAGE. NO ADDITIONAL REQUESTS OR COMPLAINTS. CALL LIGHT WITHIN REACH. CHAIR ALARM ON.
--- NOTE | 2022-09-27 13:09 | NUR ---
PTS CAREGIVER ARRIVED. DISCHARGE INSTRUCTIONS REVIEWED WITH PT AND CAREGIVER. PT ASKS APPROPRIATE QUESTIONS. CAREGIVER VERBALIZES UNDERSTANDING OF INSTRUCTIONS, MEDICATIONS, FOLLOW UP, AND CHANGES TO OLD MEDICATIONS. ENVELOPE GIVEN TO PT TO MAIL OLD MEDICATIONS OFF FOR DISPOSAL. CAREGIVER STATES HIS QUESTIONS HAVE ALL BEEN ANSWERED. PHARMACIST TO BEDSIDE TO FURTHER REVIEW MEDICATIONS. PT TRANSFERS SELF TO WHEELCHAIR WITH 1 PERSON ASSIST AND FWW. PT WHEELED FROM MED/SURG BY DESIGN ENGINEER AGRICULTURAL EQUIPMENT WITH CARGIVER. NO ADDITIONAL REQUESTS OR CONCERNS.
== END 2022-09-27 13:15 | disposition home or self-care (01) | DRG 92 ==
LOC: ED 07:24 → MS 07:26
PROVIDERS: ADMIT Internal Medicine; ATTEND Internal Medicine
DX: G92.8 Other toxic encephalopathy (principal); I48.20 Chronic atrial fibrillation, unspecified; Z20.822 Contact with and (suspected) exposure to COVID-19; S70.01XA Contusion of right hip, initial encounter; N40.0 Benign prostatic hyperplasia without lower urinary tract symptoms; G89.4 Chronic pain syndrome; F41.9 Anxiety disorder, unspecified; T43.595A Adverse effect of other antipsychotics and neuroleptics, initial encounter; E86.0 Dehydration; S40.022A Contusion of left upper arm, initial encounter; S40.021A Contusion of right upper arm, initial encounter; S80.12XA Contusion of left lower leg, initial encounter; S80.11XA Contusion of right lower leg, initial encounter; S80.212A Abrasion, left knee, initial encounter; I11.0 Hypertensive heart disease with heart failure; S00.83XA Contusion of other part of head, initial encounter; I50.9 Heart failure, unspecified; F32.A Depression, unspecified; E78.00 Pure hypercholesterolemia, unspecified; M54.9 Dorsalgia, unspecified; Z96.642 Presence of left artificial hip joint; Z86.73 Personal history of transient ischemic attack (TIA), and cerebral infarction without residual deficits; Z88.8 Allergy status to other drugs, medicaments and biological substances; Z98.890 Other specified postprocedural states; Z98.41 Cataract extraction status, right eye; Z79.02 Long term (current) use of antithrombotics/antiplatelets; Z79.82 Long term (current) use of aspirin; Z79.899 Other long term (current) drug therapy; W18.39XA Other fall on same level, initial encounter
CPT/HCPCS: 36415; 70450; 71045; 73030; 73502; 73700; 80048; 80053; 83735; 85025; 85060; 86850; 86900; 86901; 93005; 93010; 97162; 97166; A9270; C9803; J1170; J2405; J3475; J7121; U0003

== ENCOUNTER 2023-06-27 16:55 | Emergency (ER) | payer MEDICARE, OTHER ==
[~2023-06-27] VITALS: Ht 177.8 cm; Wt 95.8 kg
[~2023-06-27 16:55] MED LIST changes: +BUSPIRONE HCL10 MG PO; +BUSPIRONE HCL5 MG PO; +HYDROCODON-ACE1 EA10 PO; +HYDROXYZINE HCL25 MG PO; +LATANOPROST2.5 ML OU; +LORAZEPAM1 MG PO; +MIRTAZAPINE15 MG PO; +OLANZAPINE5 MG PO; +PROPRANOLOL HCL20 MG PO; +RISPERIDONE0.25 MG PO; +VITAMIN D31250 MC1 PO
--- OUTSIDE RECORDS SUMMARY | 2023-06-27 16:58 | XMS ---
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 - Patient eloped before treatment completed. - Patient with suicidal and/or homicidal ideations eloped. Details: Patient LWBS CRITERIA MET - [facility] LUIZ MCDONALD Braiding Machine Tender/Case Preparer And Liner 04/28/2023-Current PHONE: [phone] BELEN COBIAN Braiding Machine Tender/Case Preparer And Liner 10/12/2022-Current PHONE: [phone] Myra Jacobson Braiding Machine Tender/Case Preparer And Liner 01/26/2022-Current PHONE: [phone] -Ld- Dentist: Imagery Analyst [facility] [[email or web address] PHONE: [phone] GERADR JOYCE Nurse Practitioner: Family Current PHONE: [phone] ELA WEISS Balance Sheet Analyst [facility]: [phone] KARRI MONREAL Internal Medicine Current PHONE: [phone] YUVAL DE LA CRUZ Nurse Practitioner: Family Current PHONE: Unknown DANA KIRK Internal Medicine Current PHONE: [phone] NITHYA MATTHEWS Internal Medicine Current PHONE: [phone] CHERELLE RUIZ Nurse Practitioner: Family Current PHONE: [phone] GERRY GOLDBERG I. Physician Shiftman Current PHONE: Unknown YUE SHIRLEY Nurse Practitioner Current PHONE: Unknown BECKY JENSEN Nurse Practitioner Current MARIA ELENA PHONE: [phone] [facility] Current PHONE: Unknown AMBER [facility] Current PHONE: [phone] QUE GARCIA Nurse Practitioner: Family Current PHONE: Unknown [facility] has no Care Guidelines for this patient. E.D. VISIT COUNT (12 MO.) 5 MALA Lafleur TOTAL 5 NOTE: Visits indicate total known visits. ED/UCC VISIT TRACKING (12 MO.) 06/27/2023 16:56 MALA Sethi OR TYPE: Emergency COMPLAINT: - ABDOMINAL PAIN 09/27/2022 17:23 MALA Sethi [place] TYPE: Emergency COMPLAINT: - ANXIETY DIAGNOSES: - Allergy status to other drugs, medicaments and biological substances - Altered mental status, unspecified - Anxiety disorder, unspecified - Contusion of right hip, initial encounter - Essential (primary) hypertension - Exposure to other specified factors, initial encounter - Other nursing home (current) drug therapy 09/24/2022 07:25 MALA Sethi [place] TYPE: Emergency COMPLAINT: - HIP PAIN 09/22/2022 19:22 MALA Sethi [place] TYPE: Emergency COMPLAINT: - SHORTNESS OF BREATH DIAGNOSES: - Anxiety disorder, unspecified - Essential (primary) hypertension - Other intermediate manager (current) drug therapy 08/02/2022 16:41 MALA Sethi [place] TYPE: Emergency COMPLAINT: - ANXIETY INPATIENT VISIT TRACKING (12 MO.) 09/29/2022 16:34 MALA Sethi OR TYPE: Medical Surgical COMPLAINT: - PULMONARY EDEMA DIAGNOSES: - Acute pulmonary edema - Acute pulmonary edema - Allergy status to other drugs, medicaments and biological substances - Altered mental status, unspecified - Anxiety disorder, unspecified - Benign prostatic hyperplasia with lower urinary tract symptoms - Benign prostatic hyperplasia with lower urinary tract symptoms - Benign prostatic hyperplasia without lower urinary tract symptoms - Chronic pain syndrome - Chronic pain syndrome - Contusion of right hip, initial encounter - Contusion of right hip, subsequent encounter - Contusion of right hip, subsequent encounter - COVID-19 - COVID-19 - Essential (primary) hypertension - Essential (primary) hypertension - Exposure to other specified factors, initial encounter - Generalized anxiety disorder - Generalized anxiety disorder - Homonymous bilateral field defects, 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, right side - Hyperlipidemia, unspecified - Hyperlipidemia, unspecified - retirement (current) use of opiate analgesic - retirement (current) use of opiate analgesic - Other intermediate manager (current) drug therapy - Other nursing home (current) drug therapy - Other sequelae of cerebral infarction - Other sequelae of cerebral infarction - Other specified anxiety disorders - Unspecified atrial fibrillation - Unspecified atrial fibrillation - Unspecified fall, subsequent encounter - Unspecified fall, subsequent encounter - Vascular dementia, unspecified severity, with psychotic disturbance - Vascular dementia, unspecified severity, with psychotic disturbance 09/26/2022 13:00 MALA Sethi [place] TYPE: Medical Surgical COMPLAINT: - DEHYDRATION, INABILITY TO WALK, HIP HEMATOMA DIAGNOSES: - Abrasion, left knee, initial encounter - Abrasion, left knee, initial encounter - Adverse effect of other antipsychotics and neuroleptics, initial encounter - Adverse effect of other antipsychotics and neuroleptics, initial encounter - Allergy status to other drugs, medicaments and biological substances - Allergy status to other drugs, medicaments and biological substances - Anxiety disorder, unspecified - Anxiety disorder, unspecified - Benign prostatic hyperplasia without lower urinary tract symptoms - Benign prostatic hyperplasia without lower urinary tract symptoms - Cataract extraction status, right eye - Cataract extraction status, right eye - Chronic atrial fibrillation, unspecified - Chronic atrial fibrillation, unspecified - Chronic pain syndrome - Chronic pain syndrome - Contact with and (suspected) exposure to COVID-19 - Contact with and (suspected) exposure to COVID-19 - Contusion of left lower leg, initial encounter - Contusion of left lower leg, initial encounter - Contusion of left upper arm, initial encounter - Contusion of left upper arm, initial encounter - Contusion of other part of head, initial encounter - Contusion of other part of head, initial encounter - Contusion of right hip, initial encounter - Contusion of right hip, initial encounter - Contusion of right lower leg, initial encounter - Contusion of right lower leg, initial encounter - Contusion of right upper arm, initial encounter - Contusion of right upper arm, initial encounter - Dehydration - Dehydration - Depression, unspecified - Depression, unspecified - Dorsalgia, unspecified - Dorsalgia, unspecified - Heart failure, unspecified - Heart failure, unspecified - Hypertensive heart disease with heart failure - Hypertensive heart disease with heart failure - terminal superintendent (current) use of antithrombotics/antiplatelets - terminal superintendent (current) use of antithrombotics/antiplatelets - terminal superintendent (current) use of aspirin - terminal superintendent (current) use of aspirin - Metabolic encephalopathy - Other fall on same level, initial encounter - Other fall on same level, initial encounter - Other nursing home (current) drug therapy - Other nursing home (current) drug therapy - Other specified postprocedural states - Other specified postprocedural states - Other toxic encephalopathy - Other toxic encephalopathy - Personal history of transient ischemic attack (TIA), and cerebral infarction without residual deficits - Personal history of transient ischemic attack (TIA), and cerebral infarction without residual deficits - Poisoning by benzodiazepines, accidental (unintentional), initial encounter - Presence of left artificial hip joint - Presence of left artificial hip joint - Pure hypercholesterolemia, unspecified - Pure hypercholesterolemia, unspecified - Unspecified atrial fibrillation [email or web address]
[2023-06-27 17:38] LABS: LYMPHOCYTES 19.5 % (24-44)
[2023-06-27 17:42] LABS: BASOPHILS 0.9 % (0-2); EOSINOPHILS 1.7 % (0-6); HEMATOCRIT 28.4 % (35.0-50.0); MCH 32.5 (27-36); MCHC 35.3 g/dl (30-36); MCV 92.2 fl (81-99); MONOCYTES 9.5 % (0-12); NEUTROPHILS 68.4 % (39-80); PLATELET COUNT 156 K/uL (140-440); RBC 3.08 M/ul (4.3-5.7); RDW 15.5 (10.5-15.0)
[2023-06-27 17:53] LABS: ALBUMIN 3.2 g/dL (3.4-5.0); ALBUMIN/GLOBULIN RATIO 0.94 (1.1-2.4); ANION GAP 12.3 (7-21); BILIRUBIN, TOTAL 2.1 ng/dL (0.2-1.0); BUN/CREATININE RATIO 18.46 (6.0-28.6); CALCIUM 8.5 mg/dL (8.5-10.1); CREATININE, SERUM 1.3 mg/dL (0.70-1.30); POTASSIUM 4.3 mmol/L (3.5-5.1); PROTEIN, TOTAL 6.6 g/dL (6.4-8.2)
[2023-06-27 18:35] LABS: BILIRUBIN, URINE POSITIVE (negative); BLOOD/HGB, URINE LARGE (Negative); KETONE, URINE NEGATIVE (Negative); LEUK ESTERASE, URINE NEGATIVE (negative); NITRITE, URINE NEGATIVE (negative)
[2023-06-27 18:45] LABS: BACTERIA, URINE 2+ /hpf (negative); CRYSTALS, URINE NONE SEEN (0-1+); EPITHELIAL CELLS, URINE 0 /lpf (0-1+); WHITE BLOOD CELLS, URINE 0-1 /HPF (0-5)
[2023-06-27 18:46] LABS: CASTS, URINE GRANULAR 1+ \\lpf; COLLECTION TYPE, URINE CLEAN CATCH; REFLEX CULTURE, URINE Yes (No)
[2023-06-27 19:49] VITALS: BP 170/62
== END 2023-06-27 19:45 | disposition home or self-care (01) ==
LOC: ED 16:55
PROVIDERS: Internal Medicine
DX: R10.32 Left lower quadrant pain (principal); E86.0 Dehydration; I10 Essential (primary) hypertension; F41.9 Anxiety disorder, unspecified; Z79.899 Other long term (current) drug therapy
CPT/HCPCS: 36415; 80053; 81001; 85025; 87088; 99284

== ENCOUNTER 2024-03-27 18:29 | Emergency (ER) | payer MEDICARE, OTHER ==
[~2024-03-27] VITALS: Ht 177.8 cm; Wt 84.0 kg
--- OUTSIDE RECORDS SUMMARY | 2024-03-27 18:36 | XMS ---
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 Stretching Press Operator Events No recent Security Events currently on file CRITERIA MET - Group Notification CARE PROVIDERS TAMARALUIZ Validation Software Facilitator/Stenotypist 02/27/2024-Current PHONE: [phone] BELEN COBIAN Validation Software Facilitator/Stenotypist 10/12/2022-Current PHONE: [phone] Myra Jacobson Validation Software Facilitator/Stenotypist 01/26/2022-Current PHONE: [phone] -[facility] Dentist: Digital Asset Specialist Current Ld PHONE: [phone] -, Ld- Dentist: Digital Asset Specialist [facility] PHONE: [phone] GERARD JOYCE Nurse Practitioner: Family Current PHONE: [phone] ELA WEISS Electrician Supervisor Substationshira Tarango PHONE: [phone] KARRI MONREAL Internal Medicine Current PHONE: [phone] YUVAL DE LA CRUZ Nurse Practitioner: Family Current PHONE: [phone] DANA KIRK Internal Medicine Current PHONE: [phone] NITHYA MATTHEWS Internal Medicine Current PHONE: [phone] CHERELLE RUIZ Nurse Practitioner: Family Current PHONE: [phone] GERRY GOLDBERG I. Physician Barking Machine Feeder Current PHONE: Unknown YUE SHIRLEY Nurse Practitioner Current PHONE: Unknown BECKY JENSEN Nurse Practitioner Serena MARIA ELENA PHONE: [phone] ELDER [facility] Current PHONE: Unknown DEBRA CLARK [facility] Current PHONE: Unknown QUE GARCIA Nurse Practitioner: Family Current PHONE: Unknown [facility] has no Care Guidelines for this patient. E.D. VISIT COUNT (12 MO.) [address] [facility] TOTAL 2 NOTE: Visits indicate total known visits. ED/UCC VISIT TRACKING (12 MO.) 03/27/2024 18:29 MALA Sethi [place] TYPE: Emergency COMPLAINT: - CHEST PAIN 06/27/2023 16:56 MALA Sethi [facility] TYPE: Emergency COMPLAINT: - ABDOMINAL PAIN DIAGNOSES: - Anxiety disorder, unspecified - Dehydration - Essential (primary) hypertension - Left lower quadrant pain - Other group home (current) drug therapy INPATIENT VISIT TRACKING (12 MO.) No inpatient visits to display in this time frame [email or web address]
[2024-03-27 18:43] LABS: MCH 33.5 (27-36)
[2024-03-27] MEDS ORDERED: FEOSOL325 MG PO (18:43)
[2024-03-27] MEDS ORDERED: SEROQUEL25 MG PO (18:44)
[2024-03-27] MEDS ORDERED: NITROGLYCERIN 0.4 MG SUBL SL PRN (18:45)
[2024-03-27 18:46] LABS: BASOPHILS 1.4 % (0-2); EOSINOPHILS 2.4 % (0-6); HEMATOCRIT 27.5 % (35.0-50.0); HEMOGLOBIN 9.6 g/dL (12.0-18.0); MCHC 35.1 g/dl (30-36); MCV 95.3 fl (81-99); MONOCYTES 11.2 % (0-12); PLATELET COUNT 178 K/uL (140-440); RBC 2.88 M/ul (4.3-5.7); RDW 15.3 (10.5-15.0)
[2024-03-27 18:59] LABS: ALBUMIN 3.1 g/dL (3.4-5.0); ANION GAP 12.3 (7-21); BILIRUBIN, TOTAL 1.1 ng/dL (0.2-1.0); BUN/CREATININE RATIO 29.26 (6.0-28.6); CALCIUM 8.4 mg/dL (8.5-10.1); CREATININE, SERUM 1.23 mg/dL (0.70-1.30); POTASSIUM 4.3 mmol/L (3.5-5.1); PROTEIN, TOTAL 6.2 g/dL (6.4-8.2)
[2024-03-27] MEDS ORDERED: LORazepam 2 MG/ML VIAL IV ONE ×2 (19:30→20:30)
[2024-03-27] MEDS ORDERED: XANAX0.5 MG PO (23:09)
[2024-03-27 23:35] VITALS: BP 121/55
--- NOTE | 2024-03-28 14:41 | EKG ---
[facility] [address], [place] [address] Signed Junctional rhythm Abnormal ECG No previous ECGs available Confirmed by Pepito Ureña MD ([id number]) on 03/28/2024 2:40:57 PM Electronically Signed By: PEPITO UREÑA DO 03/28/24 1441 PATIENT NAME: CLAUDIO ROBERTSRanjeet ECKERT Electrocardiogram DATE OF : 41 PHYSICIAN: PEPITO UREÑA DO REPORT #: [id number] REPORT IS CONFIDENTIAL AND NOT TO BE RELEASED WITHOUT AUTHORIZATION
== END 2024-03-27 23:55 | disposition home or self-care (01) ==
LOC: ED 18:29
PROVIDERS: Emergency Medicine
DX: F41.9 Anxiety disorder, unspecified (principal); F03.90 Unspecified dementia, unspecified severity, without behavioral disturbance, psychotic disturbance, mood disturbance, and anxiety; I11.0 Hypertensive heart disease with heart failure; I50.9 Heart failure, unspecified; E78.00 Pure hypercholesterolemia, unspecified; Z86.73 Personal history of transient ischemic attack (TIA), and cerebral infarction without residual deficits; Z79.899 Other long term (current) drug therapy
CPT/HCPCS: 36415; 71045; 76705; 80053; 83735; 83880; 84484; 85025; 85060; 93005; 93010; 96374; 96376; 99285-25; J2060

== ENCOUNTER 2024-04-02 23:47 | Emergency (ER) | payer MEDICARE, OTHER ==
[~2024-04-02] VITALS: Ht 177.8 cm; Wt 89.0 kg
[~2024-04-02 23:47] MED LIST changes: +FEOSOL325 MG PO; +SEROQUEL25 MG PO; +XANAX0.5 MG PO
--- OUTSIDE RECORDS SUMMARY | 2024-04-02 23:54 | XMS ---
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 Scientist Events No recent Security Events currently on file CRITERIA MET - Group Notification - [facility] - 2 Visits in 30 Days CARE PROVIDERS LUIZ MCDONALD Drill Hand/Faceter 02/27/2024-Current PHONE: [phone] BELEN COBIAN Drill Hand/Faceter 10/12/2022-Current PHONE: [phone] Myra Jacobson Drill Hand/Faceter 01/26/2022-Current PHONE: [phone] -[facility]+ Dentist: Summer Intern Serena Jaffe PHONE: [phone] -, Ld- Dentist: Summer Intern [facility] PHONE: [phone] GERARD JOYCE Nurse Practitioner: Family Current PHONE: [phone] ELA WEISS Current NIXON Tarango PHONE: [phone] KARRI MONREAL Internal Medicine Current PHONE: [phone] YUVAL DE LA CRUZ Nurse Practitioner: Family Current PHONE: [phone] DANA KIRK Internal Medicine Current PHONE: [phone] NITHYA MATTHEWS Internal Medicine Current PHONE: [phone] CHERELLE RUIZ Nurse Practitioner: Family Current PHONE: [phone] GERRY GOLDBERG I. Physician Gold Stamper Current PHONE: Unknown YUE SHIRLEY Nurse Practitioner Current PHONE: Unknown BECKY JENSEN Nurse Practitioner Serena MARIA ELENA [phone]: [facility] DEBRA CLARK [facility] Current PHONE: Unknown QUE GARCIA Nurse Practitioner: Family Current PHONE: Unknown Cheko has no Care Guidelines for this patient. E.D. VISIT COUNT (12 MO.) 3 MALA Lafleur TOTAL 3 NOTE: Visits indicate total known visits. ED/UCC VISIT TRACKING (12 MO.) 04/02/2024 23:47 MAL[facility] Sethi [place] TYPE: Emergency COMPLAINT: - POSS ANXIETY 03/27/2024 18:29 MAL[facility] Sethi [place] TYPE: Emergency COMPLAINT: - CHEST PAIN DIAGNOSES: - Anxiety disorder, unspecified - Chest pain, unspecified - Heart failure, unspecified - Hypertensive heart disease with heart failure - Other correction (current) drug therapy - Personal history of transient ischemic attack (TIA), and cerebral infarction without residual deficits - Pure hypercholesterolemia, unspecified - Unspecified dementia, unspecified severity, without behavioral disturbance, psychotic disturbance, mood disturbance, and anxiety 06/27/2023 16:56 MALA Sethi [place] TYPE: Emergency COMPLAINT: - ABDOMINAL PAIN DIAGNOSES: - Anxiety disorder, unspecified - Dehydration - Essential (primary) hypertension - Left lower quadrant pain - Other correction (current) drug therapy INPATIENT VISIT TRACKING (12 MO.) No inpatient visits to display in this time frame [id number]
[2024-04-03] MEDS ORDERED: hydrOXYzine pamoate 50 MG HOME.PACK PO ONE (01:15)
[2024-04-03 01:37] VITALS: BP 107/84
== END 2024-04-03 01:43 | disposition home or self-care (01) ==
LOC: ED 23:47
DX: F41.9 Anxiety disorder, unspecified (principal); I11.0 Hypertensive heart disease with heart failure; I50.9 Heart failure, unspecified; I48.91 Unspecified atrial fibrillation; E78.00 Pure hypercholesterolemia, unspecified; Z86.73 Personal history of transient ischemic attack (TIA), and cerebral infarction without residual deficits; Z79.899 Other long term (current) drug therapy
CPT/HCPCS: 99283

== ENCOUNTER 2024-05-22 16:59 | Emergency (ER) | payer MEDICARE, OTHER ==
[~2024-05-22] VITALS: Ht 177.8 cm; Wt 88.0 kg
--- OUTSIDE RECORDS SUMMARY | 2024-05-22 17:05 | XMS ---
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 Supervisor Photostat Events No recent Security Events currently on file CRITERIA MET - Group Notification CARE PROVIDERS ALFIELUIZ ORLANDO Sole Cutter/Dining Room Coordinator 04/28/2024-Current PHONE: [phone] BELEN COBIAN Sole Cutter/Dining Room Coordinator 10/12/2022-Current PHONE: [phone] Myra Jacobson Sole Cutter/Dining Room Coordinator 01/26/2022-Current PHONE: [phone] GERARD JOYCE Nurse Practitioner: Family Current PHONE: [phone] ELA WEISS [employer] Supervisorshira Tarango PHONE: [phone] KARRI MONREAL Internal Medicine Current PHONE: [phone] YUVAL DE LA CRUZ Nurse Practitioner: Current PHONE: [phone] DANA KIRK Internal Medicine Current PHONE: [phone] NITHYA MATTHEWS Internal Medicine Current PHONE: [phone] CHERELLE RUIZ Nurse Practitioner: Current PHONE: [phone] GERRY GOLDBERG I. Physician Drill Press Operator Numerical Control Current PHONE: Unknown YUE SHIRLEY Nurse Practitioner Current PHONE: Unknown BECKY JENSEN Nurse Practitioner Serena ARREDONDO PHONE: [phone] [facility]LD[facility] Nursing [facility] Current PHONE: Unknown DEBRA CLARK [facility] Current PHONE: Unknown QUE GARCIA Nurse Practitioner: Family Current PHONE: Unknown Cheko has no Care Guidelines for this patient. Sheila VISIT COUNT (12 MO.) 4 MALA Lafleur TOTAL 4 NOTE: Visits indicate total known visits. ED/UCC VISIT TRACKING (12 MO.) 05/22/2024 16:59 MALA Sethi [place] TYPE: Emergency COMPLAINT: - CONFUSION 04/02/2024 23:47 MALA Sethi [place] TYPE: Emergency COMPLAINT: - POSS ANXIETY DIAGNOSES: - Anxiety disorder, unspecified - Heart failure, unspecified - Hypertensive heart disease with heart failure - Other medical terminologist (current) drug therapy - Personal history of transient ischemic attack (TIA), and cerebral infarction without residual deficits - Pure hypercholesterolemia, unspecified - Unspecified atrial fibrillation 03/27/2024 18:29 MALA Sethi [place] TYPE: Emergency COMPLAINT: - CHEST PAIN DIAGNOSES: - Anxiety disorder, unspecified - Chest pain, unspecified - Heart failure, unspecified - Hypertensive heart disease with heart failure - Other medical terminologist (current) drug therapy - Personal history of transient ischemic attack (TIA), and cerebral infarction without residual deficits - Pure hypercholesterolemia, unspecified - Unspecified dementia, unspecified severity, without behavioral disturbance, psychotic disturbance, mood disturbance, and anxiety 06/27/2023 16:[address] [facility] [place] TYPE: Emergency COMPLAINT: - ABDOMINAL PAIN DIAGNOSES: - Anxiety disorder, unspecified - Dehydration - Essential (primary) hypertension - Left lower quadrant pain - Other half-way (current) drug therapy INPATIENT VISIT TRACKING (12 MO.) No inpatient visits to display in this time frame [id number]
[2024-05-22] MEDS ORDERED: PRAZOSIN HCL1 GM MC (17:14)
[2024-05-22] MEDS ORDERED: SODIUM CHLORIDE 0.9% 1,000 ML IV ONE (17:30)
[2024-05-22 17:37] LABS: BASOPHILS 0.9 % (0-2)
[2024-05-22 17:40] LABS: ALBUMIN 3.5 g/dL (3.4-5.0); ALBUMIN/GLOBULIN RATIO 1.09 (1.1-2.4); ANION GAP 15.3 (7-21); BILIRUBIN, TOTAL 2.6 ng/dL (0.2-1.0); BUN/CREATININE RATIO 23.93 (6.0-28.6); CALCIUM 8.7 mg/dL (8.5-10.1); CREATININE, SERUM 1.17 mg/dL (0.70-1.30); POTASSIUM 4.3 mmol/L (3.5-5.1); PROTEIN, TOTAL 6.7 g/dL (6.4-8.2)
[2024-05-22 17:52] LABS: EOSINOPHILS 1.3 % (0-6); HEMATOCRIT 32.6 % (35.0-50.0); HEMOGLOBIN 11.3 g/dL (12.0-18.0); LYMPHOCYTES 16.9 % (24-44); MCHC 34.5 g/dl (30-36); MCV 95.6 fl (81-99); MONOCYTES 13.1 % (0-12); NEUTROPHILS 67.8 % (39-80); PLATELET COUNT 141 K/uL (140-440); RBC 3.41 M/ul (4.3-5.7); RDW 15.5 (10.5-15.0)
[2024-05-22 17:56] LABS: BILIRUBIN, URINE NEGATIVE (negative); BLOOD/HGB, URINE LARGE (Negative); KETONE, URINE NEGATIVE (Negative); LEUK ESTERASE, URINE NEGATIVE (negative); NITRITE, URINE NEGATIVE (negative); PH, URINE 5.5 (5-7)
[2024-05-22 18:02] LABS: BACTERIA, URINE NONE SEEN /hpf (negative); CASTS, URINE GRANULAR 2+ \\lpf; COLLECTION TYPE, URINE CLEAN CATCH; CRYSTALS, URINE AMORPHOUS URATES 1+ (0-1+); EPITHELIAL CELLS, URINE NONE SEEN /lpf (0-1+); RED BLOOD CELLS, URINE 0-1 /hpf (0-5); REFLEX CULTURE, URINE No (No); WHITE BLOOD CELLS, URINE 0-1 /HPF (0-5)
[2024-05-22 18:20] LABS: INFLUENZA B NAA NEGATIVE (NEGATIVE); RESPIRATORY SYNCYTIAL VIR NAA NEGATIVE (NEGATIVE)
[2024-05-22 19:39] VITALS: BP 133/72
== END 2024-05-22 20:00 | disposition home or self-care (01) ==
LOC: ED 16:59
PROVIDERS: Emergency Medicine
DX: R41.0 Disorientation, unspecified (principal); I11.0 Hypertensive heart disease with heart failure; I50.9 Heart failure, unspecified; I48.91 Unspecified atrial fibrillation; Z79.899 Other long term (current) drug therapy
CPT/HCPCS: 36415; 80053; 81001; 85025; 87502; 99285; J7030; U0002

== ENCOUNTER 2024-08-10 05:07 | Emergency (ER) | payer MEDICARE, OTHER ==
[~2024-08-10] VITALS: Ht 177.8 cm; Wt 88.9 kg
[~2024-08-10 05:07] MED LIST changes: +PRAZOSIN HCL1 GM MC
--- OUTSIDE RECORDS SUMMARY | 2024-08-10 05:09 | XMS ---
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 Feltmaker And Weigher Events No recent Security Events currently on file CRITERIA MET - Group Notification CARE PROVIDERS ALFIELUIZ ORLANDO Slurry Mixer/Traveling Representative 05/29/2024-Current PHONE: [phone] BELEN COBIAN Slurry Mixer/Traveling Representative 10/12/2022-Current PHONE: [phone] Myra Jacobson Slurry Mixer/Traveling Representative 01/26/2022-Current PHONE: [phone] GERARD JOYCE Nurse Practitioner: Family Current PHONE: [phone] ELA WEISS Svp Digital Sales Food & Cookingshira Tarango PHONE: [phone] KARRI MONREAL Internal Medicine Current PHONE: Unknown YUVAL DE LA CRUZ Nurse Practitioner: Family Current PHONE: [phone] DANA KIRK Internal Medicine Current PHONE: [phone] NITHYA MATTHEWS Internal Medicine Current PHONE: [phone] CHERELLE RUIZ Nurse Practitioner: Current PHONE: [phone] GERRY GOLDBERG I. Physician Import Coordination And Production Head Current PHONE: Unknown YUE SHIRLEY Nurse Jordyn Current PHONE: Unknown BECKY JENSEN Nurse Jordyn ARREDONDO PHONE: [phone] ELDER [facility] Nursing [place] Current PHONE: Unknown DEBRA CLARK [facility] Current PHONE: Unknown QUE GARCIA Nurse Practitioner: Family Current PHONE: Unknown Cheko has no Care Guidelines for this patient. Sheila VISIT COUNT (12 MO.) 4 MALA Lafleur TOTAL 4 NOTE: Visits indicate total known visits. ED/UCC VISIT TRACKING (12 MO.) 08/10/2024 05:08 MALA Sethi [place] TYPE: Emergency COMPLAINT: - SHORTNESS OF BREATH 05/22/2024 16:59 MALA Sethi [place] TYPE: Emergency COMPLAINT: - CONFUSION DIAGNOSES: - Disorientation, unspecified - Heart failure, unspecified - Hypertensive heart disease with heart failure - Other watcher automat long goods (current) drug therapy - Unspecified atrial fibrillation 04/02/2024 23:47 MALA Sethi [place] TYPE: Emergency COMPLAINT: - POSS ANXIETY DIAGNOSES: - Anxiety disorder, unspecified - Heart failure, unspecified - Hypertensive heart disease with heart failure - Other fpc (current) drug therapy - Personal history of transient ischemic attack (TIA), and cerebral infarction without residual deficits - Pure hypercholesterolemia, unspecified - Unspecified atrial fibrillation 03/27/2024 18:[address] [facility] [place] TYPE: Emergency COMPLAINT: - CHEST PAIN DIAGNOSES: - Anxiety disorder, unspecified - Chest pain, unspecified - Heart failure, unspecified - Hypertensive heart disease with heart failure - Other fpc (current) drug therapy - Personal history of transient ischemic attack (TIA), and cerebral infarction without residual deficits - Pure hypercholesterolemia, unspecified - Unspecified dementia, unspecified severity, without behavioral disturbance, psychotic disturbance, mood disturbance, and anxiety INPATIENT VISIT TRACKING (12 MO.) No inpatient visits to display in this time frame [id number]
[2024-08-10] MEDS ORDERED: ALBUTEROL/IPRATROPIUM 3 ML NEB INH ONE (05:15)
[2024-08-10] MEDS ORDERED: LORazepam 0.5 MG TAB PO ONE (05:45)
[2024-08-10 05:46] LABS: CORONAVIRUS COVID-19 AG NEGATIVE (NEGATIVE); INFLUENZA A AG NEGATIVE (NEGATIVE); INFLUENZA B AG NEGATIVE (NEGATIVE)
[2024-08-10] MEDS ORDERED: ALBUTEROL SULFATE 8 GM HOME.PACK INH ONE (06:00)
[2024-08-10] MEDS ORDERED: INHALER, ASSIST DEVICES 1 EACH SPACER MISC ONE (06:00)
[2024-08-10] MEDS ORDERED: methylPREDNISolone 4 MG HOME.PACK PO ONE (06:00)
[2024-08-10 06:20] VITALS: BP 132/72
[2024-08-12] MEDS ORDERED: LASIX20 MG PO (01:52)
== END 2024-08-10 06:20 | disposition home or self-care (01) ==
LOC: ED 05:07
PROVIDERS: Family Medicine
DX: J44.89 Other specified chronic obstructive pulmonary disease (principal); I11.0 Hypertensive heart disease with heart failure; I50.9 Heart failure, unspecified; I48.91 Unspecified atrial fibrillation; Z88.8 Allergy status to other drugs, medicaments and biological substances; Z79.899 Other long term (current) drug therapy
CPT/HCPCS: 36415; 71045; 94640; 94664; 99285-25

== ENCOUNTER 2024-08-11 23:16 | Emergency (ER) | payer MEDICARE, OTHER ==
[~2024-08-11] VITALS: Ht 177.8 cm; Wt 99.1 kg
--- OUTSIDE RECORDS SUMMARY | 2024-08-11 23:18 | XMS ---
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 Metal Painter Events No recent Security Events currently on file CRITERIA MET - Group Notification - [facility] - 2 Visits in 30 Days CARE PROVIDERS LUIZ MCDONALD Information Security/Chief Dietitian 05/29/2024-Current PHONE: [phone] BELEN COBIAN Information Security/Chief Dietitian 10/12/2022-Current PHONE: [phone] Myra Jacobson Information Security/Chief Dietitian 01/26/2022-Current PHONE: [phone] GERARD JOYCE Nurse Practitioner: Family Current PHONE: [phone] ELA WEISS Stitcher Aroundshira ALICEA DPM F PHONE: [phone] KARRI MONREAL Internal Medicine Current PHONE: Unknown YUVAL DE LA CRUZ Nurse Practitioner: Current PHONE: [phone] DANA KIRK Internal Medicine Current PHONE: [phone] NITHYA MATTHEWS Internal Medicine Current PHONE: [phone] CHERELLE RUIZ Nurse Practitioner: Family Current PHONE: [phone] GERRY GOLDBERG I. Physician Manager Of Community Relations Current PHONE: Unknown YUE SHIRLEY Nurse Practitioner Current PHONE: Unknown BECKY JENSEN Nurse Practitioner Serena ARREDONDO PHONE: [phone] [facility] Current PHONE: Unknown DEBRA CLARK [facility] Current PHONE: Unknown QUE GARCIA Nurse Practitioner: Family Current PHONE: Unknown Cheko has no Care Guidelines for this patient. Sheila VISIT COUNT (12 MO.) 5 MALA Lafleur TOTAL 5 NOTE: Visits indicate total known visits. ED/UCC VISIT TRACKING (12 MO.) 08/11/2024 23:16 MALA Sethi [place] TYPE: Emergency COMPLAINT: - SOB 08/10/2024 05:08 MALA Sethi [place] TYPE: Emergency COMPLAINT: - SHORTNESS OF BREATH 05/22/2024 16:59 MALA Sethi [place] TYPE: Emergency COMPLAINT: - CONFUSION DIAGNOSES: - Disorientation, unspecified - Heart failure, unspecified - Hypertensive heart disease with heart failure - Other prison (current) drug therapy - Unspecified atrial fibrillation 04/02/2024 23:47 MALA Sethi [place] TYPE: Emergency COMPLAINT: - POSS ANXIETY DIAGNOSES: - Anxiety disorder, unspecified - Heart failure, unspecified - Hypertensive heart disease with heart failure - Other prison (current) drug therapy - Personal history of transient ischemic attack (TIA), and cerebral infarction without residual deficits - Pure hypercholesterolemia, unspecified - Unspecified atrial fibrillation 03/27/2024 18:29 MALA Sethi [place] TYPE: Emergency COMPLAINT: - CHEST PAIN DIAGNOSES: - Anxiety disorder, unspecified - Chest pain, unspecified - Heart failure, unspecified - Hypertensive heart disease with heart failure - Other prison (current) drug therapy - Personal history of transient ischemic attack (TIA), and cerebral infarction without residual deficits - Pure hypercholesterolemia, unspecified - Unspecified dementia, unspecified severity, without behavioral disturbance, psychotic disturbance, mood disturbance, and anxiety INPATIENT VISIT TRACKING (12 MO.) No inpatient visits to display in this time frame [id number]
[2024-08-11 23:51] LABS: HEMOGLOBIN 11.3 g/dL (12.0-18.0); RDW 17.6 (10.5-15.0)
[2024-08-11 23:54] LABS: NEUTROPHILS 89.2 % (39-80)
[2024-08-11 23:58] LABS: BASOPHILS 0.3 % (0-2); HEMATOCRIT 32.8 % (35.0-50.0); LYMPHOCYTES 3.5 % (24-44); MCH 33.3 (27-36); MCHC 34.5 g/dl (30-36); MCV 96.3 fl (81-99); PLATELET COUNT 161 K/uL (140-440); RBC 3.41 M/ul (4.3-5.7)
[2024-08-12 00:16] LABS: ALBUMIN 3.6 g/dL (3.4-5.0); ALBUMIN/GLOBULIN RATIO 1.03 (1.1-2.4); ANION GAP 13.6 (7-21); BILIRUBIN, TOTAL 1.6 mg/dL (0.2-1.0); BUN/CREATININE RATIO 26.66 (6.0-28.6); CALCIUM 8.5 mg/dL (8.5-10.1); CREATININE, SERUM 1.2 mg/dL (0.70-1.30); POTASSIUM 4.6 mmol/L (3.5-5.1); PROTEIN, TOTAL 7.1 g/dL (6.4-8.2)
[2024-08-12] MEDS ORDERED: FUROSEMIDE 20 MG/2 ML VIAL IV ONE (00:30)
[2024-08-12] MEDS ORDERED: droPERidol 5 MG/2 ML VIAL IM ONE (01:00)
[2024-08-12] MEDS ORDERED: IBUPROFEN 600 MG TAB PO ONE (01:00)
[2024-08-12] MEDS ORDERED: LASIX20 MG PO ×2 (01:52→07:25)
[2024-08-12] MEDS ORDERED: GUAIFENESIN/CODEINE 5 ML UDC PO ONE (02:00)
[2024-08-12] MEDS ORDERED: GUAIFENESIN/CODEINE 60 ML HOME.PACK PO ONE (02:00)
[2024-08-12] MEDS ORDERED: ALPRAZolam 0.5 MG TAB PO ONE (04:15)
[2024-08-12 06:07] VITALS: BP 125/82
== END 2024-08-12 06:07 | disposition home or self-care (01) ==
LOC: ED 23:16
PROVIDERS: Family Medicine
DX: I11.0 Hypertensive heart disease with heart failure (principal); I50.9 Heart failure, unspecified; Z88.8 Allergy status to other drugs, medicaments and biological substances; Z79.899 Other long term (current) drug therapy
CPT/HCPCS: 36415; 80053; 83880; 85025; 85060; 96374; 99285-25; A9270; J1940

== ENCOUNTER 2024-09-21 23:35 | Emergency (ER) | payer MEDICARE, OTHER ==
[~2024-09-21] VITALS: Ht 177.8 cm; Wt 98.0 kg
[~2024-09-21 23:35] MED LIST changes: +LASIX20 MG PO; -PRAZOSIN HCL1 GM MC; +PRAZOSIN HCL1 MG PO
--- OUTSIDE RECORDS SUMMARY | 2024-09-21 23:39 | XMS ---
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 Cardiac Specialist Events No recent Security Events currently on file CRITERIA MET - 6 ED Visits in 6 Months - Group Notification CARE PROVIDERS BELEN COBIAN Trapper Bird/Mechanics Supervisor 10/12/2022-Current PHONE: [phone] Myra Jacobson Trapper Bird/Mechanics Supervisor 01/26/2022-Current PHONE: [phone] GERARD JOYCE Nurse Practitioner: Family Current PHONE: [phone] ELA WEISSiatrshira Tarango PHONE: [phone] KARRI MONREAL Internal Medicine Current PHONE: Unknown LUIZ MCDONALD Trapper Bird/Mechanics Supervisor Current PHONE: [phone] YUVAL DE LA CRUZ Nurse Practitioner: Family Current PHONE: [phone] DANA KIRK Internal Medicine Current PHONE: [phone] CHERELLE RUIZ Nurse Practitioner: Family Current PHONE: [phone] GERRY GOLDBERG I. Physician Vice President Of Brand Management Current PHONE: Unknown YUE SHIRLEY Nurse Practitioner Current PHONE: Unknown BECKY JENSEN Nurse Practitioner Current PHONE: [phone] [facility]LDER [facility] Nursing [facility] Current PHONE: Unknown CASSIE BARRIGA Internal Medicine Current PHONE: [phone] DEBRA CLARK [facility] Current PHONE: Unknown QUE GARCIA Nurse Practitioner: Family Current PHONE: Unknown Cheko has no Care Guidelines for this patient. Sheila VISIT COUNT (12 MO.) 6 MALA Lafleur TOTAL 6 NOTE: Visits indicate total known visits. ED/UCC VISIT TRACKING (12 MO.) 09/21/2024 23:35 MALA Sethi [place] TYPE: Emergency COMPLAINT: - SOB 08/11/2024 23:16 MALA Sethi [place] TYPE: Emergency COMPLAINT: - SOB DIAGNOSES: - Allergy status to other drugs, medicaments and biological substances - Heart failure, unspecified - Hypertensive heart disease with heart failure - Other roasterman (current) drug therapy - Shortness of breath 08/10/2024 05:08 MALA Sethi [place] TYPE: Emergency COMPLAINT: - SHORTNESS OF BREATH DIAGNOSES: - Allergy status to other drugs, medicaments and biological substances - Cough, unspecified - Heart failure, unspecified - Hypertensive heart disease with heart failure - Other alf (current) drug therapy - Other specified chronic obstructive pulmonary disease - Unspecified atrial fibrillation 05/22/2024 16:59 MALA Sethi [place] TYPE: Emergency COMPLAINT: - CONFUSION DIAGNOSES: - Disorientation, unspecified - Heart failure, unspecified - Hypertensive heart disease with heart failure - Other alf (current) drug therapy - Unspecified atrial fibrillation 04/02/2024 23:47 MALA Sethi [place] TYPE: Emergency COMPLAINT: - POSS ANXIETY DIAGNOSES: - Anxiety disorder, unspecified - Heart failure, unspecified - Hypertensive heart disease with heart failure - Other alf (current) drug therapy - Personal history of transient ischemic attack (TIA), and cerebral infarction without residual deficits - Pure hypercholesterolemia, unspecified - Unspecified atrial fibrillation 03/27/2024 18:29 MALA Sethi [place] TYPE: Emergency COMPLAINT: - CHEST PAIN DIAGNOSES: - Anxiety disorder, unspecified - Chest pain, unspecified - Heart failure, unspecified - Hypertensive heart disease with heart failure - Other alf (current) drug therapy - Personal history of transient ischemic attack (TIA), and cerebral infarction without residual deficits - Pure hypercholesterolemia, unspecified - Unspecified dementia, unspecified severity, without behavioral disturbance, psychotic disturbance, mood disturbance, and anxiety INPATIENT VISIT TRACKING (12 MO.) No inpatient visits to display in this time frame [id number]
[2024-09-21] MEDS ORDERED: diazePAM 10 MG/2 ML SYR IV ONE (23:45)
[2024-09-22 00:15] LABS: BASOPHILS 1.8 % (0-2); EOSINOPHILS 2.9 % (0-6); HEMOGLOBIN 10.8 g/dL (12.0-18.0); LYMPHOCYTES 28.9 % (24-44); MCH 33.4 (27-36); MCHC 35.9 g/dl (30-36); MCV 93.1 fl (81-99); MONOCYTES 13.4 % (0-12); PLATELET COUNT 143 K/uL (140-440); RBC 3.22 M/ul (4.3-5.7); RDW 15.6 (10.5-15.0)
[2024-09-22 00:21] LABS: ANION GAP 10.2 (7-21); BUN/CREATININE RATIO 22.07 (6.0-28.6); CALCIUM 8.3 mg/dL (8.5-10.1); CREATININE, SERUM 1.54 mg/dL (0.70-1.30); POTASSIUM 4.2 mmol/L (3.5-5.1)
[2024-09-22] MEDS ORDERED: ATIVAN1 MG PO (01:10)
[2024-09-22] MEDS ORDERED: LORazepam 1 MG HOME.PACK PO ONE (01:15)
[2024-09-22] MEDS ORDERED: ZOLPIDEM TARTRATE 5 MG TAB PO ONE (01:30)
[2024-09-22 02:20] VITALS: BP 121/61
--- NOTE | 2024-09-22 02:25 | NUR ---
PATIENT PLACED INTO UBER BY [facility] MELT HELPER AND MIXING OPERATOR EDU. EDU MIXING OPERATOR NOTIFIED REMINGTON LOPEZ THAT PATIENT WAS ON HIS WAY TO FACILITY. REMINGTON LOPEZ WORKER STATED "I WILL BE WAITING FOR HIM AND AVAILABLE TO HELP HIM INTO HIS ROOM". ALL BELONGINGS WITH PATIENT.
== END 2024-09-22 02:23 | disposition home or self-care (01) ==
LOC: ED 23:35
PROVIDERS: Family Medicine
DX: F41.9 Anxiety disorder, unspecified (principal)
CPT/HCPCS: 36415; 80048; 85025; 96374; 99285-25; J3360

== ENCOUNTER 2024-09-25 19:20 | Emergency (ER) | payer MEDICARE, OTHER ==
[~2024-09-25] VITALS: Ht 177.8 cm; Wt 98.0 kg
[~2024-09-25 19:20] MED LIST changes: +ATIVAN1 MG PO
--- OUTSIDE RECORDS SUMMARY | 2024-09-25 19:27 | XMS ---
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 Packaging Design Engineer Events No recent Security Events currently on file CRITERIA MET - 6 ED Visits in 6 Months - Group Notification - [facility] - 2 Visits in 30 Days CARE PROVIDERS BELEN COBIAN Stone Rigger/Quilting Supervisor 10/12/2022-Current PHONE: [phone] Myra Jacobson Stone Rigger/Quilting Supervisor 01/26/2022-Current PHONE: [phone] GERARD JOYCE Nurse Practitioner: Family Current PHONE: [phone] ELA WEISS Soil Fertility Specialistshira Tarango PHONE: [phone] KARRI MONREAL Internal Medicine Current PHONE: Unknown LUIZ MCDONALD Stone Rigger/Quilting Supervisor Current PHONE: [phone] YUVAL DE LA CRUZ Nurse Practitioner: Family Current PHONE: [phone] DANA KIRK Internal Medicine Current PHONE: [phone] CHERELLE RUIZ Nurse Practitioner: Family Current PHONE: [phone] GERRY GOLDBERG I. Physician Odd Ticket Clerk Current PHONE: Unknown YUE SHIRLEY Nurse Practitioner Current PHONE: Unknown BECKY JENSEN Nurse Practitioner Current PHONE: [phone] [facility] Current PHONE: Unknown CASSIE BARRIGA Internal Medicine Current PHONE: [phone] DEBRA CLARK [facility] Current PHONE: Unknown QUE GARCIA Nurse Practitioner: Family Current PHONE: Unknown Cheko has no Care Guidelines for this patient. Sheila VISIT COUNT (12 MO.) 7 MALA Lafleur TOTAL 7 NOTE: Visits indicate total known visits. ED/UCC VISIT TRACKING (12 MO.) 09/25/2024 19:20 MALA Sethi [place] TYPE: Emergency COMPLAINT: - ANXIETY 09/21/2024 23:35 MALA Sethi [place] TYPE: Emergency COMPLAINT: - SOB DIAGNOSES: - Anxiety disorder, unspecified - Shortness of breath 08/11/2024 23:16 MALA Sethi [place] TYPE: Emergency COMPLAINT: - SOB DIAGNOSES: - Allergy status to other drugs, medicaments and biological substances - Heart failure, unspecified - Hypertensive heart disease with heart failure - Other mcfp (current) drug therapy - Shortness of breath 08/10/2024 05:08 MALA Sethi [place] TYPE: Emergency COMPLAINT: - SHORTNESS OF BREATH DIAGNOSES: - Allergy status to other drugs, medicaments and biological substances - Cough, unspecified - Heart failure, unspecified - Hypertensive heart disease with heart failure - Other terminal computer operator (current) drug therapy - Other specified chronic obstructive pulmonary disease - Unspecified atrial fibrillation 05/22/2024 16:59 MALA Sethi [place] TYPE: Emergency COMPLAINT: - CONFUSION DIAGNOSES: - Disorientation, unspecified - Heart failure, unspecified - Hypertensive heart disease with heart failure - Other mcfp (current) drug therapy - Unspecified atrial fibrillation 04/02/2024 23:[address] [facility] [place] TYPE: Emergency COMPLAINT: - POSS ANXIETY DIAGNOSES: - Anxiety disorder, unspecified - Heart failure, unspecified - Hypertensive heart disease with heart failure - Other mcfp (current) drug therapy - Personal history of transient ischemic attack (TIA), and cerebral infarction without residual deficits - Pure hypercholesterolemia, unspecified - Unspecified atrial fibrillation 03/27/2024 18:[address] [facility] [place] TYPE: Emergency COMPLAINT: - CHEST PAIN DIAGNOSES: - Anxiety disorder, unspecified - Chest pain, unspecified - Heart failure, unspecified - Hypertensive heart disease with heart failure - Other mcfp (current) drug therapy - Personal history of transient ischemic attack (TIA), and cerebral infarction without residual deficits - Pure hypercholesterolemia, unspecified - Unspecified dementia, unspecified severity, without behavioral disturbance, psychotic disturbance, mood disturbance, and anxiety INPATIENT VISIT TRACKING (12 MO.) No inpatient visits to display in this time frame [id number]
[2024-09-25] MEDS ORDERED: LORazepam 1 MG TAB PO ONE (20:00)
[2024-09-25] MEDS ORDERED: METOPROLOL SUCCINATE 25 MG TABCR PO ONE (20:30)
[2024-09-25 21:55] VITALS: BP 116/60
== END 2024-09-25 21:50 | disposition home or self-care (01) ==
LOC: ED 19:20
DX: F41.9 Anxiety disorder, unspecified (principal); E78.00 Pure hypercholesterolemia, unspecified; I10 Essential (primary) hypertension; I48.91 Unspecified atrial fibrillation; Z79.899 Other long term (current) drug therapy; Z88.8 Allergy status to other drugs, medicaments and biological substances; Z86.73 Personal history of transient ischemic attack (TIA), and cerebral infarction without residual deficits
CPT/HCPCS: 71045; 99283-25; A9270-GY

== ENCOUNTER 2024-10-10 05:35 | Day surgery (SDC) | payer MEDICARE, OTHER | END 2024-10-10 10:10 | disposition home or self-care (01) | LOC: DS 05:35 | PROC: 3E0K8GC Introduction of Other Therapeutic Substance into Genitourinary Tract, Via Natural or Artificial Opening Endoscopic (ICD-10-PCS; principal; 2024-10-10) | DX: N32.81 Overactive bladder (principal); I11.0 Hypertensive heart disease with heart failure; I50.9 Heart failure, unspecified; I48.91 Unspecified atrial fibrillation; E78.00 Pure hypercholesterolemia, unspecified; Z79.899 Other long term (current) drug therapy; Z88.8 Allergy status to other drugs, medicaments and biological substances ==

== ENCOUNTER 2024-12-09 03:45 | Emergency (ER) | payer MEDICARE, OTHER ==
[~2024-12-09] VITALS: Ht 177.8 cm; Wt 105.6 kg
--- OUTSIDE RECORDS SUMMARY | 2024-12-09 03:51 | XMS ---
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 Physician Aide Events No recent Security Events currently on file CRITERIA MET - Group Notification CARE PROVIDERS ANTIONETTEBELEN Tejada Computer Terminal Operator/Director Of Academic Support 10/12/2022-Current PHONE: [phone] Myra Jacobson Computer Terminal Operator/Director Of Academic Support 01/26/2022-Current PHONE: [phone] -, [facility] Dentist: Cutter Barrel Drum Current [place] PHONE: [phone] GERARD JOYCE Nurse Practitioner: Family Current PHONE: [phone] ELA WEISS Coal Hauler Operatorshira Tarango PHONE: [phone] KARRI MONREAL Internal Medicine Current PHONE: Unknown LUIZ MCDONALD Computer Terminal Operator/Director Of Academic Support Current PHONE: [phone] YUVAL DE LA CRUZ Nurse Practitioner: Family Current PHONE: [phone] DANA KIRK Internal Medicine Current PHONE: [phone] GERRY GOLDBERG I. Physician Cistern Room Operator Current PHONE: Unknown Margie Sethi Nurse Practitioner: Family Current PHONE: [phone] YUE SHIRLEY Nurse Practitioner Current PHONE: Unknown BECKY JENSEN Nurse Practitioner Current PHONE: [phone] ELDER [facility] Nursing [facility] Current PHONE: Unknown CASSIE BARRIGA Internal Medicine Current PHONE: [phone] DEBRA CLARK [facility] Current PHONE: Unknown QUE GARCAI Nurse Practitioner: Family Current PHONE: Unknown Cheko has no Care Guidelines for this patient. Sheila VISIT COUNT (12 MO.) Jessy Lafleur TOTAL 8 NOTE: Visits indicate total known visits. ED/UCC VISIT TRACKING (12 MO.) 12/09/2024 03:[address] [facility] [place] TYPE: Emergency COMPLAINT: - VOMITING 09/25/2024 19:[address] [facility] [address] [facility] [place] TYPE: Emergency COMPLAINT: - ANXIETY DIAGNOSES: - Allergy status to other drugs, medicaments and biological substances - Anxiety disorder, unspecified - Essential (primary) hypertension - Other tool setter apprentice (current) drug therapy - Personal history of transient ischemic attack (TIA), and cerebral infarction without residual deficits - Pure hypercholesterolemia, unspecified - Shortness of breath - Unspecified atrial fibrillation 09/21/2024 23:35 MALA Sethi [place] TYPE: Emergency COMPLAINT: - SOB DIAGNOSES: - Anxiety disorder, unspecified - Shortness of breath 08/11/2024 23:16 MALA Sethi [place] TYPE: Emergency COMPLAINT: - SOB DIAGNOSES: - Allergy status to other drugs, medicaments and biological substances - Heart failure, unspecified - Hypertensive heart disease with heart failure - Other detention (current) drug therapy - Shortness of breath 08/10/2024 05:08 MALA Sethi [place] TYPE: Emergency COMPLAINT: - SHORTNESS OF BREATH DIAGNOSES: - Allergy status to other drugs, medicaments and biological substances - Cough, unspecified - Heart failure, unspecified - Hypertensive heart disease with heart failure - Other detention (current) drug therapy - Other specified chronic obstructive pulmonary disease - Unspecified atrial fibrillation 05/22/2024 16:59 MALA Romanoon [place] TYPE: Emergency COMPLAINT: - CONFUSION DIAGNOSES: - Disorientation, unspecified - Heart failure, unspecified - Hypertensive heart disease with heart failure - Other detention (current) drug therapy - Unspecified atrial fibrillation [facility]24 [facility] COMPLAINT: - POSS ANXIETY DIAGNOSES: - Anxiety disorder, unspecified - Heart failure, unspecified - Hypertensive heart disease with heart failure - Other tool setter apprentice (current) drug therapy - Personal history of transient ischemic attack (TIA), and cerebral infarction without residual deficits - Pure hypercholesterolemia, unspecified - Unspecified atrial fibrillation 03[facility]27[facility]24 18[facility] COMPLAINT: - CHEST PAIN DIAGNOSES: - Anxiety disorder, unspecified - Chest pain, unspecified - Heart failure, unspecified - Hypertensive heart disease with heart failure - Other tool setter apprentice (current) drug therapy - Personal history of transient ischemic attack (TIA), and cerebral infarction without residual deficits - Pure hypercholesterolemia, unspecified - Unspecified dementia, unspecified severity, without behavioral disturbance, psychotic disturbance, mood disturbance, and anxiety INPATIENT VISIT TRACKING (12 MO.) No inpatient visits to display in this time frame [id number]
[2024-12-09] MEDS ORDERED: METOPROLOL TARTRATE 5 MG/5 ML VIAL IV SCH (04:15)
[2024-12-09] MEDS ORDERED: PROCHLORPERAZINE EDISYLATE 10 MG/2 ML VIAL IV ONE (04:15)
[2024-12-09 04:17] LABS: BASOPHILS 0.4 % (0.2-1.2); EOSINOPHILS 1.2 % (0.8-7.0); LYMPHOCYTES 1.9 % (21.8-53.1); MCH 32.1 PG (25.7-32.2); MCHC 33.0 g/dL (32.3-36.5); MCV 97.1 fL (79.0-92.2); MONOCYTES 5.2 % (5.3-12.2); NEUTROPHILS 91.0 % (34.0-67.9); RBC 4.21 M/uL (4.63-6.08)
[2024-12-09 04:25] LABS: ALT (SGPT) 29.0 U/L (14-59); AST (SGOT) 69.0 U/L (15-37); GLOMERULAR FILTRATION RATE,EST 49.0 mL/min (>60); PROTEIN, TOTAL 7.7 g/dL (6.4-8.2); UREA NITROGEN 45.0 mg/dL (7-18)
[2024-12-09] MEDS ORDERED: diazePAM 10 MG/2 ML SYR IV ONE (04:45)
[2024-12-09] MEDS ORDERED: OLANZapine 10 MG TAB PO ONE (05:45)
[2024-12-09] MEDS ORDERED: FUROSEMIDE 40 MG/4 ML VIAL IV ONE (06:00)
[2024-12-09] MEDS ORDERED: LASIX20 MG PO (06:57)
[2024-12-09] MEDS ORDERED: METOPROLOL SUC100 MG PO (06:57)
[2024-12-09] MEDS ORDERED: ONDANSETRON ODT8 MG PO (06:57)
[2024-12-09] MEDS ORDERED: ONDANSETRON 4 MG HOME.PACK SL ONE (07:00)
[2024-12-09] MEDS ORDERED: AZITHROMYCIN 250 MG HOME.PACK PO ONE (07:00)
[2024-12-09] MEDS ORDERED: methylPREDNISolone 4 MG HOME.PACK PO ONE (07:00)
[2024-12-09 07:47] LABS: BLOOD/HGB, URINE LARGE (Negative); KETONE, URINE NEGATIVE (Negative); LEUK ESTERASE, URINE NEGATIVE (negative); NITRITE, URINE NEGATIVE (negative)
[2024-12-09 07:53] LABS: EPITHELIAL CELLS, URINE 0 /lpf (0-1+)
[2024-12-09 07:54] LABS: CRYSTALS, URINE AMORPHOUS URATES 1+ (0-1+); REFLEX CULTURE, URINE Yes (No)
[2024-12-09 07:55] LABS: BACTERIA, URINE 1+ /hpf (negative); CASTS, URINE GRANULAR 1+ \\lpf
[2024-12-09] MEDS ORDERED: MACROBID 100 M100 MG PO ×2 (08:01)
[2024-12-09 08:23] VITALS: BP 131/82
== END 2024-12-09 08:24 | disposition home or self-care (01) ==
LOC: ED 03:45
PROVIDERS: Family Medicine
DX: K52.9 Noninfective gastroenteritis and colitis, unspecified (principal); J18.9 Pneumonia, unspecified organism; I10 Essential (primary) hypertension; E78.00 Pure hypercholesterolemia, unspecified; Z79.899 Other long term (current) drug therapy; Z88.8 Allergy status to other drugs, medicaments and biological substances; Z86.73 Personal history of transient ischemic attack (TIA), and cerebral infarction without residual deficits
CPT/HCPCS: 36415; 51798; 71045; 80053; 81001; 83735; 83880; 85025; 87045; 87046; 87088; 96374; 96375; 99284-25; A9270; J0780; J1938; J3360

== ENCOUNTER 2024-12-14 11:19 | Emergency (ER) | payer MEDICARE, OTHER ==
[~2024-12-14] VITALS: Ht 177.8 cm; Wt 98.4 kg
[~2024-12-14 11:19] MED LIST changes: +MACROBID 100 M100 MG PO; +METOPROLOL SUC100 MG PO; +ONDANSETRON ODT8 MG PO
--- OUTSIDE RECORDS SUMMARY | 2024-12-14 11:25 | XMS ---
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 Harness Cutter Events No recent Security Events currently on file CRITERIA MET - 6 ED Visits in 6 Months - Group Notification - [facility] - 2 Visits in 30 Days CARE PROVIDERS BELEN COBIAN Manager Activities/Assistant Womens Volleyball Coach 10/12/2022-Current PHONE: [phone] Myra Jacobson Manager Activities/Assistant Womens Volleyball Coach 01/26/2022-Current PHONE: [phone] -, [facility] Dentist: Extractor And Wringer Operator Current Ld PHONE: [phone] GERARD JOYCE Nurse Practitioner: Family Current PHONE: [phone] ELA WEISS Security Assurance Specialistshira Tarango PHONE: [phone] KARRI MONREAL Internal Medicine Current PHONE: Unknown LUIZ MCDONALD Manager Activities/Assistant Womens Volleyball Coach Current PHONE: [phone] YUVAL DE LA CRUZ Nurse Practitioner: Family Current PHONE: [phone] DANA KIRK Internal Medicine Current PHONE: [phone] GERRY GOLDBERG I. Physician Seat Covers Trimmer Current PHONE: Unknown Margie Sethi Nurse Practitioner: Family Current PHONE: [phone] YUE SHIRLEY Nurse Practitioner Current PHONE: Unknown BECKY JENSEN Nurse Practitioner Current PHONE: [phone] [facility] Current PHONE: Unknown CASSIE BARRIGA Internal Medicine Current PHONE: [phone] DEBRA CLARK Family [facility] Current PHONE: Unknown QUE GARCIA Nurse Practitioner: Current PHONE: Unknown Cheko has no Care Guidelines for this patient. Sheila VISIT COUNT (12 MO.) [facility] TOTAL 9 NOTE: Visits indicate total known visits. ED/UCC VISIT TRACKING (12 MO.) 12/14/2024 11:19 [facility] [place] TYPE: Emergency COMPLAINT: - SHORTNESS OF BREATH 12/09/2024 03:45 [facility] [place] TYPE: Emergency COMPLAINT: - VOMITING DIAGNOSES: - Allergy status to other drugs, medicaments and biological substances - Essential (primary) hypertension - Nausea with vomiting, unspecified - Noninfective gastroenteritis and colitis, unspecified - Other chcf (current) drug therapy - Personal history of transient ischemic attack (TIA), and cerebral infarction without residual deficits - Pneumonia, unspecified organism - Pure hypercholesterolemia, unspecified 09/25/2024 19:20 [facility] [place] TYPE: Emergency COMPLAINT: - ANXIETY DIAGNOSES: - Allergy status to other drugs, medicaments and biological substances - Anxiety disorder, unspecified - Essential (primary) hypertension - Other local company intermodal truck driver (current) drug therapy - Personal history of [...] heart disease with heart failure - Other chcf (current) drug therapy - Shortness of breath 08/10/2024 05:08 [facility] [place] TYPE: Emergency COMPLAINT: - SHORTNESS OF BREATH DIAGNOSES: - Allergy status to other drugs, medicaments and biological substances - Cough, unspecified - Heart failure, unspecified - Hypertensive heart disease with heart failure - Other local company intermodal truck driver (current) drug therapy - Other specified chronic obstructive pulmonary disease - Unspecified atrial fibrillation 05/22/2024 16:59 [facility] [place] TYPE: Emergency COMPLAINT: - CONFUSION DIAGNOSES: - Disorientation, unspecified - Heart failure, unspecified - Hypertensive heart disease with heart failure - Other local company intermodal truck driver (current) drug therapy - Unspecified atrial fibrillation 04/02/2024 23:47 [facility] [place] TYPE: Emergency COMPLAINT: - POSS ANXIETY DIAGNOSES: - Anxiety disorder, unspecified - Heart failure, unspecified - Hypertensive heart disease with heart failure - Other local company intermodal truck driver (current) drug therapy - Personal history of transient ischemic attack (TIA), and cerebral infarction without residual deficits - Pure hypercholesterolemia, unspecified - Unspecified atrial fibrillation 03/27/2024 18:[address] [facility] [place] TYPE: Emergency COMPLAINT: - CHEST PAIN DIAGNOSES: - Anxiety disorder, unspecified - Chest pain, unspecified - Heart failure, unspecified - Hypertensive heart disease with heart failure - Other chcf (current) drug therapy - Personal history of transient ischemic attack (TIA), and cerebral infarction without residual deficits - Pure hypercholesterolemia, unspecified - Unspecified dementia, unspecified severity, without behavioral disturbance, psychotic disturbance, mood disturbance, and anxiety INPATIENT VISIT TRACKING (12 MO.) No inpatient visits to display in this time frame [id number]
[2024-12-14] MEDS ORDERED: ATORVASTATIN CA40 MG PO (11:44)
[2024-12-14] MEDS ORDERED: BUSPIRONE HCL15 MG PO (11:45)
[2024-12-14] MEDS ORDERED: LAMOTRIGINE100 MG PO (11:48)
[2024-12-14] MEDS ORDERED: LAMICTAL100 MG PO (11:50)
[2024-12-14] MEDS ORDERED: NITROFURANTOIN100 M1 PO (11:55)
[2024-12-14] MEDS ORDERED: VITAMIN D21250 MCG PO (11:56)
[2024-12-14] MEDS ORDERED: VENTOLIN HFA18 GM INH (11:58)
[2024-12-14 12:29] LABS: MCH 32.4 PG (25.7-32.2); MCHC 34.1 g/dL (32.3-36.5); MCV 95.0 fL (79.0-92.2); RBC 3.77 M/uL (4.63-6.08)
[2024-12-14 12:40] LABS: BANDS, MANUAL DIFF 1; LYMPHOCYTES, MANUAL DIFF 12; MONOCYTES, MANUAL DIFF 14; NEUTROPHILS, MANUAL DIFF 73
[2024-12-14 13:35] VITALS: BP 148/80
--- NOTE | 2024-12-15 09:44 | EKG ---
[facility] [address] [place] [address] Signed Atrial fibrillation Nonspecific T wave abnormality Abnormal ECG When compared with ECG of 17-SEP-2024 14:10, No significant change was found Confirmed by Anjana Bob MD ([id number]) on 12/15/2024 9:43:54 AM Electronically Signed By: ANJANA BOB MD 12/15/24 0944 PATIENT NAME: MOSHE ROBERTS Electrocardiogram DATE OF : 41 PHYSICIAN: ANJANA BOB MD REPORT #: [id number] REPORT IS CONFIDENTIAL AND NOT TO BE RELEASED WITHOUT AUTHORIZATION
== END 2024-12-14 13:35 | disposition home or self-care (01) ==
LOC: ED 11:19
PROVIDERS: Emergency Medicine
DX: R06.02 Shortness of breath (principal); I11.0 Hypertensive heart disease with heart failure; I50.9 Heart failure, unspecified; Z88.8 Allergy status to other drugs, medicaments and biological substances; Z79.899 Other long term (current) drug therapy
CPT/HCPCS: 36415; 71045; 83880; 84484; 85025; 93005; 93010; 99285-25

== ENCOUNTER 2025-01-02 14:34 | Emergency (ER) | payer MEDICARE, OTHER ==
[~2025-01-02] VITALS: Ht 177.8 cm; Wt 98.4 kg
[~2025-01-02 14:34] MED LIST changes: +ATORVASTATIN CA40 MG PO; +BUSPIRONE HCL15 MG PO; +LAMICTAL100 MG PO; +LAMOTRIGINE100 MG PO; +NITROFURANTOIN100 M1 PO; +VENTOLIN HFA18 GM INH; +VITAMIN D21250 MCG PO
--- OUTSIDE RECORDS SUMMARY | 2025-01-02 14:39 | XMS ---
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 Graduate Civil Engineer Events No recent Security Events currently on file CRITERIA MET - 6 ED Visits in 6 Months - Group Notification - [facility] - 2 Visits in 30 Days CARE PROVIDERS BELEN COBIAN Gastroenterology Professor/Accounts Payable Assistant 10/12/2022-Current PHONE: [phone] Myar Jacobson Gastroenterology Professor/Accounts Payable Assistant 01/26/2022-Current PHONE: [phone] -, [facility] Dentist: Nuclear Operator Current Ld PHONE: [phone] GERARD JOYCE Nurse Practitioner: Family Current PHONE: [phone] ELA WEISS Pulverizer Mill Operatorshira Tarango PHONE: [phone] KARRI MONREAL Internal Medicine Current PHONE: Unknown LUIZ MCDONALD Gastroenterology Professor/Accounts Payable Assistant Current PHONE: [phone] YUVAL DE LA CRUZ Nurse Practitioner: Family Current PHONE: [phone] DANA KIRK Internal Medicine Current PHONE: [phone] GERRY GOLDBERG I. Physician Flow Nurse Current PHONE: Unknown Margie Sethi Nurse Practitioner: Family Current PHONE: [phone] YUE SHIRLEY Nurse Practitioner Current PHONE: Unknown BECKY JENSEN Nurse Practitioner Current PHONE: [phone] CASSY FRIEDMANHCA [facility] Current PHONE: Unknown CASSIE BARRIGA Internal Medicine Current PHONE: Unknown DEBRA CLARK Family [facility] Current PHONE: Unknown QUE GARCIA Nurse Practitioner: Family Current PHONE: Unknown Cheko has no Care Guidelines for this patient. Sheila VISIT COUNT (12 MO.) Nya Lafleur TOTAL 10 NOTE: Visits indicate total known visits. ED/UCC VISIT TRACKING (12 MO.) 01/02/2025 14:[address] [facility] [place] TYPE: Emergency COMPLAINT: - CHEST PAIN 12/14/2024 11:19 [facility] [place] TYPE: Emergency COMPLAINT: - SHORTNESS OF BREATH DIAGNOSES: - Allergy status to other drugs, medicaments and biological substances - Heart failure, unspecified - Hypertensive heart disease with heart failure - Other petroleum terminal plant operator (current) drug therapy - Shortness of breath 12/09/2024 03:45 [facility] [place] TYPE: Emergency COMPLAINT: - VOMITING DIAGNOSES: - Allergy status to other drugs, medicaments and biological substances - Essential (primary) hypertension - Nausea with vomiting, unspecified - Noninfective gastroenteritis and colitis, unspecified - Other fpc (current) drug therapy - Personal history of transient ischemic attack (TIA), and cerebral infarction without residual deficits - Pneumonia, unspecified organism - Pure hypercholesterolemia, unspecified 09/25/2024 19:20 [facility] [place] TYPE: Emergency COMPLAINT: - ANXIETY DIAGNOSES: - Allergy status to other drugs, medicaments and biological substances - Anxiety disorder, unspecified - Essential (primary) hypertension - Other fpc (current) drug therapy - Personal history of transient ischemic attack (TIA), and cerebral infarction without residual deficits - Pure hypercholesterolemia, unspecified - Shortness of breath - Unspecified atrial fibrillation 09/21/2024 23:35 [facility] [place] TYPE: Emergency COMPLAINT: - SOB DIAGNOSES: - Anxiety disorder, unspecified - Shortness of breath 08/11/2024 23:16 [facility] [place] TYPE: Emergency COMPLAINT: - SOB DIAGNOSES: - Allergy status to other drugs, medicaments and biological substances - Heart failure, unspecified - Hypertensive heart disease with heart failure - Other fpc (current) drug therapy - Shortness of breath 08/10/2024 05:08 [facility] COMPLAINT: - SHORTNESS OF BREATH DIAGNOSES: - Allergy status to other drugs, medicaments and biological substances - Cough, unspecified - Heart failure, unspecified - Hypertensive heart disease with heart failure - Other petroleum terminal plant operator (current) drug therapy - Other specified chronic obstructive pulmonary disease - Unspecified atrial fibrillation 05/22/2024 16:59 [facility] [place] [facility] COMPLAINT: - CONFUSION DIAGNOSES: - Disorientation, unspecified - Heart failure, unspecified - Hypertensive heart disease with heart failure - Other petroleum terminal plant operator (current) drug therapy - Unspecified atrial fibrillation [...] visits to display in this time frame [id number]
[2025-01-02 14:57] LABS: BASOPHILS 0.7 % (0.2-1.2); EOSINOPHILS 1.1 % (0.8-7.0); LYMPHOCYTES 11.0 % (21.8-53.1); MCH 32.2 PG (25.7-32.2); MCHC 33.3 g/dL (32.3-36.5); MCV 96.7 fL (79.0-92.2); MONOCYTES 12.3 % (5.3-12.2); NEUTROPHILS 74.6 % (34.0-67.9); RBC 3.69 M/uL (4.63-6.08)
[2025-01-02] MEDS ORDERED: LIDOCAINE 2% (VISCOUS) HCL 15 ML UDC MT ONE (15:00)
[2025-01-02 15:16] LABS: ALT (SGPT) 33.0 U/L (14-59); AST (SGOT) 62.0 U/L (15-37); GLOMERULAR FILTRATION RATE,EST 60.0 mL/min (>60); PROTEIN, TOTAL 7.0 g/dL (6.4-8.2); UREA NITROGEN 24.0 mg/dL (7-18)
[2025-01-02 16:34] LABS: CORONAVIRUS COVID-19 AG NEGATIVE (NEGATIVE)
[2025-01-02] MEDS ORDERED: ACETAMINOPHEN 500 MG TAB PO ONE (17:15)
[2025-01-02 17:32] VITALS: BP 109/86
--- NOTE | 2025-01-02 22:50 | EKG ---
[facility] [address] [place] [address] Signed Atrial fibrillation with rapid ventricular response with premature ventricular or aberrantly conducted complexes Abnormal ECG When compared with ECG of 14-DEC-2024 12:00, No significant change was found Confirmed by Cecil Tenorio MD () on 01/02/2025 10:50:16 PM Electronically Signed By: CECIL TENORIO MD 01/02/25 2250 PATIENT NAME: ALEJANDRAMOSHERanjeet ECKERT Electrocardiogram DATE OF : 41 PHYSICIAN: CECIL TENORIO MD REPORT #: [id number] REPORT IS CONFIDENTIAL AND NOT TO BE RELEASED WITHOUT AUTHORIZATION
== END 2025-01-02 17:33 | disposition home or self-care (01) ==
LOC: ED 14:34
PROVIDERS: Emergency Medicine
DX: R07.0 Pain in throat (principal); I11.0 Hypertensive heart disease with heart failure; I50.9 Heart failure, unspecified; E78.00 Pure hypercholesterolemia, unspecified; I48.91 Unspecified atrial fibrillation; Z88.8 Allergy status to other drugs, medicaments and biological substances; Z79.899 Other long term (current) drug therapy
CPT/HCPCS: 36415; 70491; 71045; 80053; 83735; 84484; 85025; 87651; 93005; 93010; 96374; 99285-25; A9270; Q9967

== ENCOUNTER 2025-01-16 05:45 | Emergency (ER) | payer MEDICARE, OTHER ==
[~2025-01-16] VITALS: Ht 177.8 cm; Wt 97.0 kg
[~2025-01-16 05:45] MED LIST changes: +ACETAMINOPHEN500 MG PO; +COL-RITE100 MG PO; +GAVILAX238 GM PO
--- OUTSIDE RECORDS SUMMARY | 2025-01-16 05:51 | XMS ---
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 Corporate Risk Analyst Events No recent Security Events currently on file CRITERIA MET - 6 ED Visits in 6 Months - Group Notification - [facility] - 2 Visits in 30 Days CARE PROVIDERS BELEN COBIAN Canvas Goods Maker/Surgical Garment Inspector 10/12/2022-Current PHONE: [phone] Myra Jacobson Canvas Goods Maker/Surgical Garment Inspector 01/26/2022-Current PHONE: [phone] -, [facility] Dentist: Spanisher Current Ld PHONE: [phone] GERARD JOYCE Nurse Practitioner: Family Current PHONE: [phone] ELA WEISS Agency Directorshira Tarango PHONE: [phone] KARRI MONREAL Internal Medicine Current PHONE: Unknown LUIZ MCDONALD Canvas Goods Maker/Surgical Garment Inspector Current PHONE: [phone] YUVLA DE LA CRUZ Nurse Practitioner: Family Current PHONE: [phone] DANA KIRK Internal Medicine Current PHONE: [phone] GERRY GOLDBERG I. Physician Manager Document Control Current PHONE: Unknown Margie Sethi Nurse Practitioner: Family Current PHONE: [phone] YUE SHIRLEY Nurse Practitioner Current PHONE: Unknown BECKY JENSEN Nurse Practitioner Current PHONE: [phone] [facility]EDMANH[facility] Current PHONE: Unknown CASSIE BARRIGA Internal Medicine Current PHONE: Unknown DEBRA CLARK Family [facility] Current PHONE: Unknown QUE GARCIA Nurse Practitioner: Family Current PHONE: Unknown Cheko has no Care Guidelines for this patient. Sheila VISIT COUNT (12 MO.) 14 MALA Lafleur TOTAL 14 NOTE: Visits indicate total known visits. ED/UCC VISIT TRACKING (12 MO.) 01/16/2025 05:45 [facility] [place] TYPE: Emergency COMPLAINT: - VISION PROBLEMS 01/10/2025 05:48 [facility] [place] TYPE: Emergency COMPLAINT: - SHORTNESS OF BREATH DIAGNOSES: - Allergy status to other drugs, medicaments and biological substances - Heart failure, unspecified - Hypertensive heart disease with heart failure - Nutritional anemia, unspecified - Other terminal computer operator (current) drug therapy - Personal history of nicotine dependence - Personal history of transient ischemic attack (TIA), and cerebral infarction without residual deficits - Presence of prosthetic heart valve - Pulmonary hypertension, unspecified - Pure hypercholesterolemia, unspecified - Shortness of breath - Unspecified atrial fibrillation 01/09/2025 19:32 [facility] [place] TYPE: Emergency COMPLAINT: - SORE THROAT DIAGNOSES: - Acute pharyngitis due to other specified organisms - Acute pharyngitis, unspecified - Allergy status to other drugs, medicaments and biological substances - Heart failure, unspecified - Hypertensive heart disease with heart failure - Other chcf (current) drug therapy - Other viral agents as the cause of diseases classified elsewhere - Pure hypercholesterolemia, unspecified - Unspecified atrial fibrillation 01/09/2025 11:04 [facility] [place] TYPE: Emergency COMPLAINT: - CHEST PAIN DIAGNOSES: - Allergy status to other drugs, medicaments and biological substances - Atherosclerotic heart disease of [place] coronary artery without angina pectoris - Chest pain, unspecified - Heart failure, unspecified - Hypertensive heart disease with heart failure - Other terminal computer operator (current) drug therapy - Presence of prosthetic heart valve - Pure hypercholesterolemia, unspecified - Unspecified atrial fibrillation 01/02/2025 14:35 [facility] [place] TYPE: Emergency COMPLAINT: - CHEST PAIN DIAGNOSES: - Allergy status to other drugs, medicaments and biological substances - Heart failure, unspecified - Hypertensive heart disease with heart failure - Other chcf (current) drug therapy - Pain in throat - Pure hypercholesterolemia, unspecified - Unspecified atrial fibrillation 12/14/2024 11:19 [facility] [place] TYPE: Emergency COMPLAINT: - SHORTNESS OF BREATH DIAGNOSES: - Allergy status to other drugs, medicaments and biological substances - Heart failure, unspecified - Hypertensive heart disease with heart failure - Other terminal computer operator (current) drug therapy - Shortness of breath 12/09/2024 03:45 [facility] [place] TYPE: Emergency COMPLAINT: - VOMITING DIAGNOSES: - Allergy status to other drugs, medicaments and biological substances - Essential (primary) hypertension - Nausea with vomiting, unspecified - Noninfective gastroenteritis and colitis, unspecified - Other terminal computer operator (current) drug therapy - Personal history of transient ischemic attack (TIA), and cerebral infarction without residual deficits - Pneumonia, unspecified organism - Pure hypercholesterolemia, unspecified 09/25/2024 19:20 [facility] [place] TYPE: Emergency COMPLAINT: - ANXIETY DIAGNOSES: - Allergy status to other drugs, medicaments and biological substances - Anxiety disorder, unspecified - Essential (primary) hypertension - Other terminal computer operator (current) drug therapy - Personal history of [...] - Other chcf (current) drug therapy - Other specified chronic obstructive pulmonary disease - Unspecified atrial fibrillation 05/22/2024 16:[address] [facility] [address] [facility] [place] TYPE: Emergency COMPLAINT: - CONFUSION DIAGNOSES: - Disorientation, unspecified - Heart failure, unspecified - Hypertensive heart disease with heart failure - Other chcf (current) drug therapy - Unspecified atrial fibrillation 04/02/2024 23:[address] [facility] [address] [facility] [place] TYPE: Emergency COMPLAINT: - POSS ANXIETY DIAGNOSES: - Anxiety disorder, unspecified - Heart failure, unspecified - Hypertensive heart disease with heart failure - Other terminal computer operator (current) drug therapy - Personal history of transient ischemic attack (TIA), and cerebral infarction without residual deficits - Pure hypercholesterolemia, unspecified - Unspecified atrial fibrillation 03/27/2024 18:[address] [facility] [address] [facility] [place] TYPE: Emergency COMPLAINT: [...] visits to display in this time frame [id number]
[2025-01-16] MEDS ORDERED: ACETAMINOPHEN 500 MG TAB PO ONE (06:30)
[2025-01-16 07:16] LABS: ALT (SGPT) 32.0 U/L (14-59); AST (SGOT) 64.0 U/L (15-37); GLOMERULAR FILTRATION RATE,EST 49.0 mL/min (>60); PROTEIN, TOTAL 6.4 g/dL (6.4-8.2); UREA NITROGEN 21.0 mg/dL (7-18)
[2025-01-16 07:31] LABS: BASOPHILS 1.6 % (0.2-1.2); EOSINOPHILS 2.6 % (0.8-7.0); LYMPHOCYTES 21.2 % (21.8-53.1); MCH 31.7 PG (25.7-32.2); MCHC 33.2 g/dL (32.3-36.5); MCV 95.5 fL (79.0-92.2); MONOCYTES 10.5 % (5.3-12.2); NEUTROPHILS 63.4 % (34.0-67.9); RBC 3.34 M/uL (4.63-6.08)
[2025-01-16 08:41] VITALS: BP 124/61
== END 2025-01-16 08:41 | disposition home or self-care (01) ==
LOC: ED 05:45
PROVIDERS: Internal Medicine
DX: F41.9 Anxiety disorder, unspecified (principal); I11.0 Hypertensive heart disease with heart failure; I50.9 Heart failure, unspecified; I48.91 Unspecified atrial fibrillation; Z88.8 Allergy status to other drugs, medicaments and biological substances; Z79.899 Other long term (current) drug therapy; E78.5 Hyperlipidemia, unspecified
CPT/HCPCS: 36415; 71045; 80053; 85025; 99285-25; A9270

== ENCOUNTER 2025-01-30 02:34 | Emergency (ER) | payer MEDICARE, OTHER ==
[~2025-01-30] VITALS: Ht 177.8 cm; Wt 97.0 kg
--- OUTSIDE RECORDS SUMMARY | 2025-01-30 02:36 | XMS ---
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 Engine Installer Events No recent Security Events currently on file CRITERIA MET - 6 ED Visits in 6 Months - Group Notification - [facility] - 2 Visits in 30 Days CARE PROVIDERS BELEN COBIAN Pharmaceutical Development Technician/Technical Specialist Cytology 10/12/2022-Current PHONE: [phone] Myra Jacobson Pharmaceutical Development Technician/Technical Specialist Cytology 01/26/2022-Current PHONE: [phone] -, [facility] Dentist: Printing Pressman Current Ld PHONE: [phone] GERARD JOYCE Nurse Practitioner: Family Current PHONE: [phone] ELA WEISS Magnetic Observershira Tarango PHONE: [phone] KARRI MONREAL Internal Medicine Current PHONE: Unknown LUIZ MCDONALD Pharmaceutical Development Technician/Technical Specialist Cytology Current PHONE: [phone] YUVAL DE LA CRUZ Nurse Practitioner: Family Current PHONE: [phone] DANA KIRK Internal Medicine Current PHONE: [phone] GERRY GOLDBERG I. Physician Work Order Sorting Clerk Current PHONE: Unknown Margie Sethi Nurse Practitioner: Family Current PHONE: [phone] YUE SHIRLEY Nurse Practitioner Current PHONE: Unknown BECKY JENSEN Nurse Practitioner Current PHONE: [phone] CASSY FRIEDMANHCA [facility] Current PHONE: Unknown CASSIE BARRIGA Internal Medicine Current PHONE: Unknown DEBRA CLARK Family [facility] Current PHONE: Unknown QUE GARCIA Nurse Practitioner: Family Current PHONE: Unknown Cheko has no Care Guidelines for this patient. Sheila VISIT COUNT (12 MO.) 15 MALA Lafleur TOTAL 15 NOTE: Visits indicate total known visits. ED/UCC VISIT TRACKING (12 MO.) 01/30/2025 02:35 [facility] [place] TYPE: Emergency COMPLAINT: - SOB 01/16/2025 05:45 [facility] [place] TYPE: Emergency COMPLAINT: - VISUAL CHANGES DIAGNOSES: - Allergy status to other drugs, medicaments and biological substances - Anxiety disorder, unspecified - Disorientation, unspecified - Heart failure, unspecified - Hyperlipidemia, unspecified - Hypertensive heart disease with heart failure - Other fci (current) drug therapy - Unspecified atrial fibrillation 01/10/2025 05:48 [facility] [place] TYPE: Emergency COMPLAINT: - SHORTNESS OF BREATH DIAGNOSES: - Allergy status to other drugs, medicaments and biological substances - Heart failure, unspecified - Hypertensive heart disease with heart failure - Nutritional anemia, unspecified - Other fci (current) drug therapy - Personal history of [...] heart disease with heart failure - Other fci (current) drug therapy - Other viral agents as the cause of diseases classified elsewhere - Pure hypercholesterolemia, unspecified - Unspecified atrial fibrillation 01/09/2025 11:04 [facility] [place] TYPE: Emergency COMPLAINT: - CHEST PAIN DIAGNOSES: - Allergy status to other drugs, medicaments and biological substances - Atherosclerotic heart disease of [place] coronary artery without angina pectoris - Chest pain, unspecified - Heart failure, unspecified - Hypertensive heart disease with heart failure - Other predatory animal exterminator (current) drug therapy - Presence of prosthetic heart valve - Pure hypercholesterolemia, unspecified - Unspecified atrial fibrillation 01/02/2025 14:35 [facility] [place] TYPE: Emergency COMPLAINT: - CHEST PAIN DIAGNOSES: - Allergy status to other drugs, medicaments and biological substances - Heart failure, unspecified - Hypertensive heart disease with heart failure - Other fci (current) drug therapy - Pain in throat - Pure hypercholesterolemia, unspecified - Unspecified atrial fibrillation 12/14/2024 11:19 [facility] [place] TYPE: Emergency COMPLAINT: - SHORTNESS OF BREATH DIAGNOSES: - Allergy status to other drugs, medicaments and biological substances - Heart failure, unspecified - Hypertensive heart disease with heart failure - Other predatory animal exterminator (current) drug therapy - Shortness of breath 12/09/2024 03:45 [facility] [place] TYPE: Emergency COMPLAINT: - VOMITING DIAGNOSES: - Allergy status to other drugs, medicaments and biological substances - Essential (primary) hypertension - Nausea with vomiting, unspecified - Noninfective gastroenteritis and colitis, unspecified - Other fci (current) drug therapy - Personal history of transient ischemic attack (TIA), and cerebral infarction without residual deficits - Pneumonia, unspecified organism - Pure hypercholesterolemia, unspecified 09/25/2024 19:20 [facility] [place] TYPE: Emergency COMPLAINT: - ANXIETY DIAGNOSES: - Allergy status to other drugs, medicaments and biological substances - Anxiety disorder, unspecified - Essential (primary) hypertension - Other fci (current) drug therapy - Personal history of [...] heart disease with heart failure - Other predatory animal exterminator (current) drug therapy - Shortness of breath 08/10/2024 05:08 [facility] [place] TYPE: Emergency COMPLAINT: - SHORTNESS OF BREATH DIAGNOSES: - Allergy status to other drugs, medicaments and biological substances - Cough, unspecified - Heart failure, unspecified - Hypertensive heart disease with heart failure - Other predatory animal exterminator (current) drug therapy - Other specified chronic obstructive pulmonary disease - Unspecified atrial fibrillation 05/22/2024 16:59 [facility] [place] TYPE: Emergency COMPLAINT: - CONFUSION DIAGNOSES: - Disorientation, unspecified - Heart failure, unspecified - Hypertensive heart disease with heart failure - Other fci (current) drug therapy - Unspecified atrial fibrillation 04/02/2024 23:47 [facility] [place] TYPE: Emergency COMPLAINT: - POSS ANXIETY DIAGNOSES: - Anxiety disorder, unspecified - Heart failure, unspecified - Hypertensive heart disease with heart failure - Other predatory animal exterminator (current) drug therapy - Personal history of transient ischemic attack (TIA), and cerebral infarction without residual deficits - Pure hypercholesterolemia, unspecified - Unspecified atrial fibrillation 03/27/2024 18:[address] [facility] [place] TYPE: Emergency COMPLAINT: - CHEST PAIN DIAGNOSES: - Anxiety disorder, unspecified - Chest pain, unspecified - Heart failure, unspecified - Hypertensive heart disease with heart failure - Other fci (current) drug therapy - Personal history of transient ischemic attack (TIA), and cerebral infarction without residual deficits - Pure hypercholesterolemia, unspecified - Unspecified dementia, unspecified severity, without behavioral disturbance, psychotic disturbance, mood disturbance, and anxiety INPATIENT VISIT TRACKING (12 MO.) No inpatient visits to display in this time frame [id number]
[2025-01-30] MEDS ORDERED: ALBUTEROL/IPRATROPIUM 3 ML NEB INH ONE (02:45)
[2025-01-30] MEDS ORDERED: FUROSEMIDE 40 MG/4 ML VIAL IV ONE (02:45)
[2025-01-30] MEDS ORDERED: LORazepam 2 MG/ML VIAL IV ONE (02:45)
[2025-01-30 03:24] LABS: BASOPHILS 1.3 % (0.2-1.2); EOSINOPHILS 4.1 % (0.8-7.0); LYMPHOCYTES 17.4 % (21.8-53.1); MCH 32.2 PG (25.7-32.2); MCHC 32.8 g/dL (32.3-36.5); MCV 98.4 fL (79.0-92.2); MONOCYTES 13.9 % (5.3-12.2); NEUTROPHILS 62.7 % (34.0-67.9); RBC 3.07 M/uL (4.63-6.08)
[2025-01-30 03:28] LABS: CORONAVIRUS COVID-19 AG NEGATIVE (NEGATIVE)
[2025-01-30 03:45] LABS: ALT (SGPT) 19.0 U/L (14-59); AST (SGOT) 38.0 U/L (15-37); GLOMERULAR FILTRATION RATE,EST 54.0 mL/min (>60); PROTEIN, TOTAL 6.0 g/dL (6.4-8.2); UREA NITROGEN 33.0 mg/dL (7-18)
[2025-01-30 05:45] VITALS: BP 108/62
--- NOTE | 2025-01-30 10:24 | EKG ---
[facility] [address] [place] [address] Signed Atrial fibrillation Low voltage QRS Nonspecific T wave abnormality Abnormal ECG When compared with ECG of 09-JAN-2025 11:07, Nonspecific T wave abnormality, improved in Lateral leads QT has shortened Confirmed by SOFIA ROWLAND MD ([id number]) on 01/30/2025 10:24:23 AM Electronically Signed By: SOFIA ROWLAND 01/30/25 1024 PATIENT NAME: MOSHE ROBERTS Electrocardiogram DATE OF : 41 PHYSICIAN: SOFIA ROWLAND REPORT #: [id number] REPORT IS CONFIDENTIAL AND NOT TO BE RELEASED WITHOUT AUTHORIZATION
== END 2025-01-30 05:46 | disposition home or self-care (01) ==
LOC: ED 02:34
PROVIDERS: Family Medicine
DX: I11.0 Hypertensive heart disease with heart failure (principal); I50.9 Heart failure, unspecified; E78.00 Pure hypercholesterolemia, unspecified; I48.91 Unspecified atrial fibrillation; Z86.73 Personal history of transient ischemic attack (TIA), and cerebral infarction without residual deficits; Z88.8 Allergy status to other drugs, medicaments and biological substances; Z79.899 Other long term (current) drug therapy
CPT/HCPCS: 36415; 71045; 80053; 83880; 85025; 93005; 93010; 94640; 96374; 99285-25; J2060

== ENCOUNTER 2025-01-31 00:03 | Emergency (ER) | payer MEDICARE, OTHER ==
[~2025-01-31] VITALS: Ht 177.8 cm; Wt 103.4 kg
--- OUTSIDE RECORDS SUMMARY | 2025-01-31 00:06 | XMS ---
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 Transfer Specialist Events No recent Security Events currently on file CRITERIA MET - 6 ED Visits in 6 Months - Group Notification - [facility] - 2 Visits in 30 Days CARE PROVIDERS BELEN COBIAN Car Stower/Glassware Engraver 10/12/2022-Current PHONE: [phone] Myra Jacobson Car Stower/Glassware Engraver 01/26/2022-Current PHONE: [phone] -, [facility]ist: Computer Support Analyst Current Ld PHONE: [phone] GERARD JOYCE Nurse Practitioner: Family Current PHONE: [phone] ELA WEISS Manager Telecomshira Tarango PHONE: [phone] KARRI MONREAL Internal Medicine Current PHONE: Unknown LUIZ MCDONALD Car Stower/Glassware Engraver Current PHONE: [phone] YUVAL DE LA CRUZ Nurse Practitioner: Family Current PHONE: [phone] DANA KIRK Internal Medicine Current PHONE: [phone] GERRY GOLDBERG I. Physician Screen Examiner Current PHONE: Unknown Margie Sethi Nurse Practitioner: Family Current PHONE: [phone] YUE SHIRLEY Nurse Practitioner Current PHONE: Unknown BECKY JENSEN Nurse Practitioner Current PHONE: [phone] C[facility] Current PHONE: Unknown CASSIE BARRIGA Internal Medicine Current PHONE: Unknown DEBRA CLARK Family [facility] Current PHONE: Unknown QUE GARCIA Nurse Practitioner: Family Current PHONE: Unknown Cheko has no Care Guidelines for this patient. Sheila VISIT COUNT (12 MO.) 16 [facility] TOTAL 16 NOTE: Visits indicate total known visits. ED/UCC VISIT TRACKING (12 MO.) 01/31/2025 00:03 [facility] [place] TYPE: Emergency COMPLAINT: - ANXIETY 01/30/2025 02:35 [facility] [place] TYPE: Emergency COMPLAINT: - SOB 01/16/2025 05:[address] [facility] [place] TYPE: Emergency COMPLAINT: - VISUAL CHANGES DIAGNOSES: - Allergy status to other drugs, medicaments and biological substances - Anxiety disorder, unspecified - Disorientation, unspecified - Heart failure, unspecified - Hyperlipidemia, unspecified - Hypertensive heart disease with heart failure - Other retirement (current) drug therapy - Unspecified atrial fibrillation 01/10/2025 05:[address] [facility] [place] TYPE: Emergency COMPLAINT: - SHORTNESS OF BREATH DIAGNOSES: - Allergy status to other drugs, medicaments and biological substances - Heart failure, unspecified - Hypertensive heart disease with heart failure - Nutritional anemia, unspecified - Other retirement (current) drug therapy - Personal history of nicotine dependence - Personal history of transient ischemic attack (TIA), and cerebral infarction without residual deficits - Presence of prosthetic heart valve - Pulmonary hypertension, unspecified - Pure hypercholesterolemia, unspecified - Shortness of breath - Unspecified atrial fibrillation 01/09/2025 19:32 [facility] [place] TYPE: Emergency COMPLAINT: - SORE THROAT DIAGNOSES: - Acute pharyngitis due to other specified organisms - Acute pharyngitis, unspecified - Allergy status to other drugs, medicaments and biological substances - Heart failure, unspecified - Hypertensive heart disease with heart failure - Other retirement (current) drug therapy - Other viral agents as the cause of diseases classified elsewhere - Pure hypercholesterolemia, unspecified - Unspecified atrial fibrillation 01/09/2025 11:04 AML[facility] Sethi [place] TYPE: Emergency COMPLAINT: - CHEST PAIN DIAGNOSES: - Allergy status to other drugs, medicaments and biological substances - Atherosclerotic heart disease of [place] coronary artery without angina pectoris - Chest pain, unspecified - Heart failure, unspecified - Hypertensive heart disease with heart failure - Other exterminator termite (current) drug therapy - Presence of prosthetic heart valve - Pure hypercholesterolemia, unspecified - Unspecified atrial fibrillation 01/02/2025 14:35 [facility] [place] TYPE: Emergency COMPLAINT: - CHEST PAIN DIAGNOSES: - Allergy status to other drugs, medicaments and biological substances - Heart failure, unspecified - Hypertensive heart disease with heart failure - Other exterminator termite (current) drug therapy - Pain in throat - Pure hypercholesterolemia, unspecified - Unspecified atrial fibrillation 12/14/2024 11:19 [facility] [place] TYPE: Emergency COMPLAINT: - SHORTNESS OF BREATH DIAGNOSES: - Allergy status to other drugs, medicaments and biological substances - Heart failure, unspecified - Hypertensive heart disease with heart failure - Other retirement (current) drug therapy - Shortness of breath 12/09/2024 03:45 [facility] [place] [facility] [place] TYPE: Emergency COMPLAINT: - VOMITING DIAGNOSES: - Allergy status to other drugs, medicaments and biological substances - Essential (primary) hypertension - Nausea with vomiting, unspecified - Noninfective gastroenteritis and colitis, unspecified - Other exterminator termite (current) drug therapy - Personal history of transient ischemic attack (TIA), and cerebral infarction without residual deficits - Pneumonia, unspecified organism - Pure hypercholesterolemia, unspecified 09/25/2024 19:20 [facility] [place] [facility] [place] TYPE: Emergency COMPLAINT: - ANXIETY DIAGNOSES: - Allergy status to other drugs, medicaments and biological substances - Anxiety disorder, unspecified - Essential (primary) hypertension - Other exterminator termite (current) drug therapy - Personal history of transient ischemic attack (TIA), and cerebral infarction without residual deficits - Pure hypercholesterolemia, unspecified - Shortness of breath - Unspecified atrial fibrillation 09/21/2024 23:35 [facility] [place] [facility]air [facility] [place] TYPE: Emergency COMPLAINT: - SOB DIAGNOSES: - Anxiety disorder, unspecified - Shortness of breath 08/11/2024 23:16 [facility] Sethi [place] TYPE: Emergency COMPLAINT: - SOB DIAGNOSES: - Allergy status to other drugs, medicaments and biological substances - Heart failure, unspecified - Hypertensive heart disease with heart failure - Other exterminator termite (current) drug therapy - Shortness of breath 08/10/2024 05:08 MALA Sethi [place] TYPE: Emergency COMPLAINT: - SHORTNESS OF BREATH DIAGNOSES: - Allergy status to other drugs, medicaments and biological substances - Cough, unspecified - Heart failure, unspecified - Hypertensive heart disease with heart failure - Other retirement (current) drug therapy - Other specified chronic obstructive pulmonary disease - Unspecified atrial fibrillation 05/22/2024 16:[address] [facility] [place] TYPE: Emergency COMPLAINT: - CONFUSION DIAGNOSES: - Disorientation, unspecified - Heart failure, unspecified - Hypertensive heart disease with heart failure - Other exterminator termite (current) drug therapy - Unspecified atrial fibrillation 04/02/2024 23:47 [facility] Seth[facility] [place] TYPE: Emergency COMPLAINT: - POSS ANXIETY DIAGNOSES: - Anxiety disorder, unspecified - Heart failure, unspecified - Hypertensive heart disease with heart failure - Other exterminator termite (current) drug therapy - Personal history of transient ischemic attack (TIA), and cerebral infarction without residual deficits - Pure hypercholesterolemia, unspecified - Unspecified atrial fibrillation 03/27/2024 18:29 [facility] Sethi [place] TYPE: Emergency COMPLAINT: - CHEST PAIN DIAGNOSES: - Anxiety disorder, unspecified - Chest pain, unspecified - Heart failure, unspecified - Hypertensive heart disease with heart failure - Other retirement (current) drug therapy - Personal history of transient ischemic attack (TIA), and cerebral infarction without residual deficits - Pure hypercholesterolemia, unspecified - Unspecified dementia, unspecified severity, without behavioral disturbance, psychotic disturbance, mood disturbance, and anxiety INPATIENT VISIT TRACKING (12 MO.) No inpatient visits to display in this time frame [id number]
[2025-01-31] MEDS ORDERED: LORazepam 1 MG TAB PO ONE (03:00)
[2025-01-31 07:55] VITALS: BP 167/128
== END 2025-01-31 07:55 | disposition home or self-care (01) ==
LOC: ED 00:03
DX: F41.9 Anxiety disorder, unspecified (principal); I11.0 Hypertensive heart disease with heart failure; I50.9 Heart failure, unspecified; E78.00 Pure hypercholesterolemia, unspecified; I48.91 Unspecified atrial fibrillation; Z86.73 Personal history of transient ischemic attack (TIA), and cerebral infarction without residual deficits; Z88.8 Allergy status to other drugs, medicaments and biological substances; Z79.899 Other long term (current) drug therapy
CPT/HCPCS: 99283

== ENCOUNTER 2025-02-05 11:27 | Emergency (ER) | payer MEDICARE, OTHER ==
[~2025-02-05] VITALS: Ht 177.8 cm; Wt 116.0 kg
--- OUTSIDE RECORDS SUMMARY | 2025-02-05 11:33 | XMS ---
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 Mechanic Assistant Events No recent Security Events currently on file CRITERIA MET - 6 ED Visits in 6 Months - Group Notification - [facility] - 2 Visits in 30 Days CARE PROVIDERS BELEN COBIAN Tire Bagger/Vice President Sales 10/12/2022-Current PHONE: [phone] Myra Jacobson Tire Bagger/Vice President Sales 01/26/2022-Current PHONE: [phone] -, [facility]ist: Rural Mail Contractor Current Ld PHONE: [phone] GERARD JOYCE Nurse Practitioner: Family Current PHONE: [phone] ELA WEISS Inspector Precisionshira Tarango PHONE: [phone] KARRI MONREAL Internal Medicine Current PHONE: Unknown LUIZ MCDONALD Tire Bagger/Vice President Sales Current PHONE: [phone] YUVAL DE LA CRUZ Nurse Practitioner: Family Current PHONE: [phone] DANA KIRK Internal Medicine Current PHONE: [phone] GERRY GOLDBERG I. Physician Teletray Operator Current PHONE: Unknown Margie Sethi Nurse Practitioner: Family Current PHONE: [phone] YUE SHIRLEY Nurse Practitioner Current PHONE: Unknown BECKY JENSEN Nurse Practitioner Current PHONE: [phone] [facility] Current PHONE: Unknown CASSIE BARRIGA Internal Medicine Current PHONE: Unknown DEBRA CLARK Family [facility] Current PHONE: Unknown QUE GARCIA Nurse Practitioner: Family Current PHONE: Unknown Cheko has no Care Guidelines for this patient. Sheila VISIT COUNT (12 MO.) [facility] TOTAL 17 NOTE: Visits indicate total known visits. ED/UCC VISIT TRACKING (12 MO.) 02/05/2025 11:27 [facility]A Seth[facility] [place] TYPE: Emergency COMPLAINT: - LEG PAIN 01/31/2025 00:03 [facility]A Seth[facility] [place] TYPE: Emergency COMPLAINT: - COLD SYMPTOMS 01/30/2025 02:35 [facility] Seth[facility] [place] TYPE: Emergency COMPLAINT: - SOB DIAGNOSES: - Allergy status to other drugs, medicaments and biological substances - Heart failure, unspecified - Hypertensive heart disease with heart failure - Other local intermodal truck driver (current) drug therapy - Personal history of transient ischemic attack (TIA), and cerebral infarction without residual deficits - Pure hypercholesterolemia, unspecified - Shortness of breath - Unspecified atrial fibrillation 01/16/2025 05:45 [facility] Sethi [place] TYPE: Emergency COMPLAINT: - VISUAL CHANGES DIAGNOSES: - Allergy status to other drugs, medicaments and biological substances - Anxiety disorder, unspecified - Disorientation, unspecified - Heart failure, unspecified - Hyperlipidemia, unspecified - Hypertensive heart disease with heart failure - Other nursing home (current) drug therapy - Unspecified atrial fibrillation 01/10/2025 05:48 [facility]A Sethi [place] TYPE: Emergency COMPLAINT: - SHORTNESS OF BREATH DIAGNOSES: - Allergy status to other drugs, medicaments and biological substances - Heart failure, unspecified - Hypertensive heart disease with heart failure - Nutritional anemia, unspecified - Other local intermodal truck driver (current) drug therapy - Personal history of nicotine dependence - Personal history of transient ischemic attack (TIA), and cerebral infarction without residual deficits - Presence of prosthetic heart valve - Pulmonary hypertension, unspecified - Pure hypercholesterolemia, unspecified - Shortness of breath - Unspecified atrial fibrillation 01/09/2025 19:32 [facility]gloria Te[facility]air [facility] [place] TYPE: Emergency COMPLAINT: - SORE THROAT DIAGNOSES: - Acute pharyngitis due to other specified organisms - Acute pharyngitis, unspecified - Allergy status to other drugs, medicaments and biological substances - Heart failure, unspecified - Hypertensive heart disease with heart failure - Other local intermodal truck driver (current) drug therapy - Other viral agents as the cause of diseases classified elsewhere - Pure hypercholesterolemia, unspecified - Unspecified atrial fibrillation 01/09/2025 11:04 MALA Sethi [place] TYPE: Emergency COMPLAINT: - CHEST PAIN DIAGNOSES: - Allergy status to other drugs, medicaments and biological substances - Atherosclerotic heart disease of [place] coronary artery without angina pectoris - Chest pain, unspecified - Heart failure, unspecified - Hypertensive heart disease with heart failure - Other nursing home (current) drug therapy - Presence of prosthetic heart valve - Pure hypercholesterolemia, unspecified - Unspecified atrial fibrillation 01/02/2025 14:35 MALA Hernandezony Kayla Jaffe [place] TYPE: Emergency COMPLAINT: - CHEST PAIN DIAGNOSES: - Allergy status to other drugs, medicaments and biological substances - Heart failure, unspecified - Hypertensive heart disease with heart failure - Other local intermodal truck driver (current) drug therapy - Pain in throat - Pure hypercholesterolemia, unspecified - Unspecified atrial fibrillation 12/14/2024 11:19 MALA Sethi [place] TYPE: Emergency COMPLAINT: - SHORTNESS OF BREATH DIAGNOSES: - Allergy status to other drugs, medicaments and biological substances - Heart failure, unspecified - Hypertensive heart disease with heart failure - Other local intermodal truck driver (current) drug therapy - Shortness of breath 12/09/2024 03:45 MALA Sethi [place] TYPE: Emergency COMPLAINT: - VOMITING DIAGNOSES: - Allergy status to other drugs, medicaments and biological substances - Essential (primary) hypertension - Nausea with vomiting, unspecified - Noninfective gastroenteritis and colitis, unspecified - Other local intermodal truck driver (current) drug therapy - Personal history of transient ischemic attack (TIA), and cerebral infarction without residual deficits - Pneumonia, unspecified organism - Pure hypercholesterolemia, unspecified 09/25/2024 19:20 MALA Sethi [place] TYPE: Emergency COMPLAINT: - ANXIETY DIAGNOSES: - Allergy status to other drugs, medicaments and biological substances - Anxiety disorder, unspecified - Essential (primary) hypertension - Other nursing home (current) drug therapy - Personal history of [...] disease with heart failure - Other local intermodal truck driver (current) drug therapy - Shortness of breath 08/10/2024 05:08 MALA Sethi [place] TYPE: Emergency COMPLAINT: - SHORTNESS OF BREATH DIAGNOSES: - Allergy status to other drugs, medicaments and biological substances - Cough, unspecified - Heart failure, unspecified - Hypertensive heart disease with heart failure - Other local intermodal truck driver (current) drug therapy - Other specified chronic obstructive pulmonary disease - Unspecified atrial fibrillation 05/22/2024 16:[address] [facility] [place] HJair Jaffe [place] TYPE: Emergency COMPLAINT: - CONFUSION DIAGNOSES: - Disorientation, unspecified - Heart failure, unspecified - Hypertensive heart disease with heart failure - Other nursing home (current) drug therapy - Unspecified atrial fibrillation 04/02/2024 23:[address] [facility] [place] TYPE: Emergency COMPLAINT: - POSS ANXIETY DIAGNOSES: - Anxiety disorder, unspecified - Heart failure, unspecified - Hypertensive heart disease with heart failure - Other nursing home (current) drug therapy - Personal history of transient ischemic attack (TIA), and cerebral infarction without residual deficits - Pure hypercholesterolemia, unspecified - Unspecified atrial fibrillation 03/27/2024 18:[address] [facility] [place] HJair Jaffe [place] TYPE: Emergency COMPLAINT: - CHEST PAIN DIAGNOSES: - Anxiety disorder, unspecified - Chest pain, unspecified - Heart failure, unspecified - Hypertensive heart disease with heart failure - Other nursing home (current) drug therapy - Personal history of transient ischemic attack (TIA), and cerebral infarction without residual deficits - Pure hypercholesterolemia, unspecified - Unspecified dementia, unspecified severity, without behavioral disturbance, psychotic disturbance, mood disturbance, and anxiety INPATIENT VISIT TRACKING (12 MO.) No inpatient visits to display in this time frame [id number]
[2025-02-05] MEDS ORDERED: FUROSEMIDE 100 MG/10 ML VIAL IV ONE (11:45)
[2025-02-05 12:10] LABS: BASOPHILS 1.0 % (0.2-1.2); EOSINOPHILS 3.0 % (0.8-7.0); LYMPHOCYTES 13.7 % (21.8-53.1); MCH 31.3 PG (25.7-32.2); MCHC 32.0 g/dL (32.3-36.5); MCV 97.6 fL (79.0-92.2); MONOCYTES 11.9 % (5.3-12.2); NEUTROPHILS 69.8 % (34.0-67.9); RBC 3.36 M/uL (4.63-6.08)
[2025-02-05 12:29] LABS: ALT (SGPT) 23.0 U/L (14-59); AST (SGOT) 51.0 U/L (15-37); GLOMERULAR FILTRATION RATE,EST 57.0 mL/min (>60); PROTEIN, TOTAL 6.0 g/dL (6.4-8.2); UREA NITROGEN 27.0 mg/dL (7-18)
[2025-02-05 14:12] VITALS: BP 131/77
== END 2025-02-05 14:14 | disposition home or self-care (01) ==
LOC: ED 11:27
PROVIDERS: Emergency Medicine
DX: I11.0 Hypertensive heart disease with heart failure (principal); I50.9 Heart failure, unspecified; R60.0 Localized edema; E78.00 Pure hypercholesterolemia, unspecified; I48.91 Unspecified atrial fibrillation; Z79.899 Other long term (current) drug therapy; Z88.8 Allergy status to other drugs, medicaments and biological substances
CPT/HCPCS: 36415; 71045; 80053; 83880; 85025; 96374; 99284-25; A6590; J1938

== ENCOUNTER 2025-02-08 09:17 | Emergency (ER) | payer MEDICARE, OTHER ==
[~2025-02-08] VITALS: Ht 177.8 cm; Wt 111.2 kg
--- OUTSIDE RECORDS SUMMARY | 2025-02-08 09:21 | XMS ---
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 Orchestra Conductor Events No recent Security Events currently on file CRITERIA MET - 6 ED Visits in 6 Months - Group Notification - [facility] - 2 Visits in 30 Days CARE PROVIDERS BELEN COBIAN Manager Mortgage/Taco Maker 10/12/2022-Current PHONE: [phone] Myra Jacobson Manager Mortgage/Taco Maker 01/26/2022-Current PHONE: [phone] -, [facility]ist: Associate Professor Current Ld PHONE: [phone] GERARD JOYCE Nurse Practitioner: Family Current PHONE: [phone] ELA WEISS Diagnostic Imaging Managershira Tarango PHONE: [phone] KARRI MONREAL Internal Medicine Current PHONE: Unknown LUIZ MCDONALD Manager Mortgage/Taco Maker Current PHONE: [phone] YUVAL DE LA CRUZ Nurse Practitioner: Family Current PHONE: [phone] DANA KIRK Internal Medicine Current PHONE: [phone] GERRY GOLDBERG I. Physician Vice President Network Development Current PHONE: Unknown Margie Sethi Nurse Practitioner: Family Current PHONE: [phone] YUE SHIRLEY Nurse Practitioner Current PHONE: Unknown BECKY JENSEN Nurse Practitioner Current PHONE: [phone] [facility] Current PHONE: Unknown CASSIE BARRIGA Internal Medicine Current PHONE: Unknown DEBRA CLARK Family [facility] Current PHONE: Unknown QUE GARCIA Nurse Practitioner: Family Current PHONE: Unknown Cheko has no Care Guidelines for this patient. Sheila VISIT COUNT (12 MO.) 18 MALA Lafleur TOTAL 18 NOTE: Visits indicate total known visits. ED/UCC VISIT TRACKING (12 MO.) 02/08/2025 09:18 [facility]A Sethi [place] TYPE: Emergency COMPLAINT: - LEG PAIN 02/05/2025 11:27 [facility] Sethi [place] TYPE: Emergency COMPLAINT: - LEG PAIN 01/31/2025 00:03 [facility] Sethi [place] TYPE: Emergency COMPLAINT: - COLD SYMPTOMS DIAGNOSES: - Allergy status to other drugs, medicaments and biological substances - Anxiety disorder, unspecified - Cough, unspecified - Heart failure, unspecified - Hypertensive heart disease with heart failure - Other residential (current) drug therapy - Personal history of transient ischemic attack (TIA), and cerebral infarction without residual deficits - Pure hypercholesterolemia, unspecified - Unspecified atrial fibrillation 01/30/2025 02:35 MALA Sethi [place] TYPE: Emergency COMPLAINT: - SOB DIAGNOSES: - Allergy status to other drugs, medicaments and biological substances - Heart failure, unspecified - Hypertensive heart disease with heart failure - Other petroleum terminal plant operator (current) drug therapy - Personal history [...] failure - Nutritional anemia, unspecified - Other petroleum terminal plant operator (current) drug therapy - Personal history [...] plant operator (current) drug therapy - Other viral agents as the cause of diseases classified elsewhere - Pure hypercholesterolemia, unspecified - Unspecified atrial fibrillation 01/09/2025 11:04 MALA Sethi [place] TYPE: Emergency COMPLAINT: - CHEST PAIN DIAGNOSES: - Allergy status to other drugs, medicaments and biological substances - Atherosclerotic heart disease of [place] coronary artery without angina pectoris - Chest pain, unspecified - Heart failure, unspecified - Hypertensive heart disease with heart failure - Other residential (current) drug therapy - Presence of prosthetic heart valve - Pure hypercholesterolemia, unspecified - Unspecified atrial fibrillation 01/02/2025 14:35 MALA Sethi [place] TYPE: Emergency COMPLAINT: - CHEST PAIN DIAGNOSES: - Allergy status to other drugs, medicaments and biological substances - Heart failure, unspecified - Hypertensive heart disease with heart failure - Other residential (current) drug therapy - Pain in throat [...] Noninfective gastroenteritis and colitis, unspecified - Other residential (current) drug therapy - Personal history of transient ischemic attack (TIA), and cerebral infarction without residual deficits - Pneumonia, unspecified organism - Pure hypercholesterolemia, unspecified 09/25/2024 19:[address] [facility] [address] [facility] [place] TYPE: Emergency COMPLAINT: - ANXIETY DIAGNOSES: - Allergy status to other drugs, medicaments and biological substances - Anxiety disorder, unspecified - Essential (primary) hypertension - Other petroleum terminal plant operator (current) drug therapy - Personal history of transient ischemic attack (TIA), and cerebral infarction without residual deficits - Pure hypercholesterolemia, unspecified - Shortness of breath - Unspecified atrial fibrillation 09/21/2024 23:[address] [facility] [address] [facility] [place] TYPE: Emergency COMPLAINT: - SOB DIAGNOSES: - Anxiety disorder, unspecified - Shortness of breath 08/11/2024 23:[address] [facility] [address] [place] TYPE: Emergency COMPLAINT: - SOB DIAGNOSES: - Allergy status to other drugs, medicaments and biological substances - Heart failure, unspecified - Hypertensive heart disease with heart failure - Other residential (current) drug therapy - Shortness of breath [...] - Other residential (current) drug therapy - Unspecified atrial fibrillation 04/02/2024 23:47 MALA Sethi [place] TYPE: Emergency COMPLAINT: - POSS ANXIETY DIAGNOSES: - Anxiety disorder, unspecified - Heart failure, unspecified - Hypertensive heart disease with heart failure - Other petroleum terminal plant operator (current) drug therapy - Personal history [...] - Other residential (current) drug therapy - Personal history of transient ischemic attack (TIA), and cerebral infarction without residual deficits - Pure hypercholesterolemia, unspecified - Unspecified dementia, unspecified severity, without behavioral disturbance, psychotic disturbance, mood disturbance, and anxiety INPATIENT VISIT TRACKING (12 MO.) No inpatient visits to display in this time frame [id number]
[2025-02-08] MEDS ORDERED: LASIX20 MG PO (09:40)
[2025-02-08] MEDS ORDERED: FUROSEMIDE 40 MG TAB PO ONE (09:45)
[2025-02-08 10:45] VITALS: BP 90/61
[2025-02-08] MEDS ORDERED: ACETAMINOPHEN 500 MG TAB PO ONE (11:00)
== END 2025-02-08 10:45 | disposition home or self-care (01) ==
LOC: ED 09:17
DX: R60.0 Localized edema (principal); I11.0 Hypertensive heart disease with heart failure; I50.9 Heart failure, unspecified; E78.00 Pure hypercholesterolemia, unspecified; I48.91 Unspecified atrial fibrillation; Z86.73 Personal history of transient ischemic attack (TIA), and cerebral infarction without residual deficits; Z88.8 Allergy status to other drugs, medicaments and biological substances; Z79.899 Other long term (current) drug therapy
CPT/HCPCS: 99284; A9270

== ENCOUNTER 2025-02-12 01:56 | Emergency (ER) | payer MEDICARE, OTHER ==
[~2025-02-12] VITALS: Ht 177.8 cm; Wt 111.2 kg
--- OUTSIDE RECORDS SUMMARY | 2025-02-12 02:03 | XMS ---
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 Saxophone Player Events No recent Security Events currently on file CRITERIA MET - 6 ED Visits in 6 Months - Group Notification - [facility] - 2 Visits in 30 Days CARE PROVIDERS BELEN COBIAN Machine Shorthand Teacher/Dividing Machine Operator 10/12/2022-Current PHONE: [phone] Myra Jacobson Machine Shorthand Teacher/Dividing Machine Operator 01/26/2022-Current PHONE: [phone] -, [facility]ist: Auto Repair Shop Manager Current Ld PHONE: [phone] GERARD JOYCE Nurse Practitioner: Family Current PHONE: [phone] ELA WEISS Marine Cargo Surveyorshira Tarango PHONE: [phone] KARRI MONREAL Internal Medicine Current PHONE: Unknown LUIZ MCDONALD Machine Shorthand Teacher/Dividing Machine Operator Current PHONE: [phone] YUVAL DE LA CRUZ Nurse Practitioner: Family Current PHONE: [phone] DANA KIRK Internal Medicine Current PHONE: [phone] GERRY GOLDBERG I. Physician Reduction Plant Supervisor Current PHONE: Unknown Margie Sethi Nurse Practitioner: Family Current PHONE: [phone] YUE SHIRLEY Nurse Practitioner Current PHONE: Unknown BECKY JENSEN Nurse Practitioner Current PHONE: [phone] [facility] Current PHONE: Unknown CASSIE BARRIGA Internal Medicine Current PHONE: Unknown DEBRA CLARK [facility] Current PHONE: Unknown QUE GARCIA Nurse Practitioner: Family Current PHONE: Unknown Cheko has no Care Guidelines for this patient. Sheila VISIT COUNT (12 [address] [facility] [address] [facility] Garza TOTAL 19 NOTE: Visits indicate total known visits. ED/UCC VISIT TRACKING (12 MO.) 02/12/2025 01:56 MALA Sethi [place] TYPE: Emergency COMPLAINT: - LEG PAIN 02/08/2025 09:18 MALA Sethi [place] TYPE: Emergency COMPLAINT: - LEG SWELLING DIAGNOSES: - Allergy status to other drugs, medicaments and biological substances - Heart failure, unspecified - Hypertensive heart disease with heart failure - Localized edema - Other terminal make up operator (current) drug therapy - Personal history of transient ischemic attack (TIA), and cerebral infarction without residual deficits - Pure hypercholesterolemia, unspecified - Unspecified atrial fibrillation 02/05/2025 11:27 MALA Sethi [place] TYPE: Emergency COMPLAINT: - LEG PAIN DIAGNOSES: - Allergy status to other drugs, medicaments and biological substances - Heart failure, unspecified - Hypertensive heart disease with heart failure - Localized edema - Other skilled nursing (current) drug therapy - Other specified soft tissue disorders - Pure hypercholesterolemia, unspecified - Unspecified atrial fibrillation 01/31/2025 00:03 MALA Sethi [place] TYPE: Emergency COMPLAINT: - COLD SYMPTOMS DIAGNOSES: - Allergy status to other drugs, medicaments and biological substances - Anxiety disorder, unspecified - Cough, unspecified - Heart failure, unspecified - Hypertensive heart disease with heart failure - Other skilled nursing (current) drug therapy - Personal history of transient ischemic attack (TIA), and cerebral infarction without residual deficits - Pure hypercholesterolemia, unspecified - Unspecified atrial fibrillation 01/30/2025 02:35 MALA Sethi [place] TYPE: Emergency COMPLAINT: - SOB DIAGNOSES: - Allergy status to other drugs, medicaments and biological substances - Heart failure, unspecified - Hypertensive heart disease with heart failure - Other skilled nursing (current) drug therapy - Personal history of [...] disease with heart failure - Other terminal make up operator (current) drug therapy - Unspecified atrial fibrillation 01/10/2025 05:48 MALA Sethi [place] TYPE: Emergency COMPLAINT: - SHORTNESS OF BREATH DIAGNOSES: - Allergy status to other drugs, medicaments and biological substances - Heart failure, unspecified - Hypertensive heart disease with heart failure - Nutritional anemia, unspecified - Other skilled nursing (current) drug therapy - Personal history of [...] disease with heart failure - Other terminal make up operator (current) drug therapy - Other viral agents as the cause of diseases classified elsewhere - Pure hypercholesterolemia, unspecified - Unspecified atrial fibrillation 01/09/2025 11:04 MALA Sethi [place] TYPE: Emergency COMPLAINT: - CHEST PAIN DIAGNOSES: - Allergy status to other drugs, medicaments and biological substances - Atherosclerotic heart disease of [place] coronary artery without angina pectoris - Chest pain, unspecified - Heart failure, unspecified - Hypertensive heart disease with heart failure - Other terminal make up operator (current) drug therapy - Presence of prosthetic heart valve - Pure hypercholesterolemia, unspecified - Unspecified atrial fibrillation 01/02/2025 14:35 MALA Sethi [place] TYPE: Emergency COMPLAINT: - CHEST PAIN DIAGNOSES: - Allergy status to other drugs, medicaments and biological substances - Heart failure, unspecified - Hypertensive heart disease with heart failure - Other skilled nursing (current) drug therapy - Pain in throat - Pure hypercholesterolemia, unspecified - Unspecified atrial fibrillation 12/14/2024 11:19 MALA Hernandezgloria TejadaJair Jaffe [place] TYPE: Emergency COMPLAINT: - SHORTNESS OF BREATH DIAGNOSES: - Allergy status to other drugs, medicaments and biological substances - Heart failure, unspecified - Hypertensive heart disease with heart failure - Other skilled nursing (current) drug therapy - Shortness of breath 12/09/2024 03:45 MALA Sethi [place] TYPE: Emergency COMPLAINT: - VOMITING DIAGNOSES: - Allergy status to other drugs, medicaments and biological substances - Essential (primary) hypertension - Nausea with vomiting, unspecified - Noninfective gastroenteritis and colitis, unspecified - Other terminal make up operator (current) drug therapy - Personal history of transient ischemic attack (TIA), and cerebral infarction without residual deficits - Pneumonia, unspecified organism - Pure hypercholesterolemia, unspecified 09/25/2024 19:20 MALA Sethi [place] TYPE: Emergency COMPLAINT: - ANXIETY DIAGNOSES: - Allergy status to other drugs, medicaments and biological substances - Anxiety disorder, unspecified - Essential (primary) hypertension - Other skilled nursing (current) drug therapy - Personal history of [...] heart disease with heart failure - Other skilled nursing (current) drug therapy - Shortness of breath 08/10/2024 05:08 MALA Sethi [place] TYPE: Emergency COMPLAINT: - SHORTNESS OF BREATH DIAGNOSES: - Allergy status to other drugs, medicaments and biological substances - Cough, unspecified - Heart failure, unspecified - Hypertensive heart disease with heart failure - Other skilled nursing (current) drug therapy - Other specified chronic obstructive pulmonary disease - Unspecified atrial fibrillation 05/22/2024 16:59 MALA Sethi [place] TYPE: Emergency COMPLAINT: - CONFUSION DIAGNOSES: - Disorientation, unspecified - Heart failure, unspecified - Hypertensive heart disease with heart failure - Other terminal make up operator (current) drug therapy - Unspecified atrial fibrillation [facility]02[facility]2024 23[facility] COMPLAINT: - POSS ANXIETY DIAGNOSES: - Anxiety disorder, unspecified - Heart failure, unspecified - Hypertensive heart disease with heart failure - Other terminal make up operator (current) drug therapy - Personal history of transient ischemic attack (TIA), and cerebral infarction without residual deficits - Pure hypercholesterolemia, unspecified - Unspecified atrial fibrillation 03/27/2024 18:29 [facility] [address] Reji Jaffe [place] TYPE: Emergency COMPLAINT: - CHEST PAIN DIAGNOSES: - Anxiety disorder, unspecified - Chest pain, unspecified - Heart failure, unspecified - Hypertensive heart disease with heart failure - Other skilled nursing (current) drug therapy - Personal history of transient ischemic attack (TIA), and cerebral infarction without residual deficits - Pure hypercholesterolemia, unspecified - Unspecified dementia, unspecified severity, without behavioral disturbance, psychotic disturbance, mood disturbance, and anxiety INPATIENT VISIT TRACKING (12 MO.) No inpatient visits to display in this time frame [id number]
[2025-02-12 02:30] LABS: BASOPHILS 0.8 % (0.2-1.2); EOSINOPHILS 2.8 % (0.8-7.0); LYMPHOCYTES 14.1 % (21.8-53.1); MCH 31.6 PG (25.7-32.2); MCHC 31.9 g/dL (32.3-36.5); MCV 99.1 fL (79.0-92.2); MONOCYTES 13.9 % (5.3-12.2); NEUTROPHILS 68.0 % (34.0-67.9); RBC 3.20 M/uL (4.63-6.08)
[2025-02-12 02:43] LABS: ALT (SGPT) 22.0 U/L (14-59); AST (SGOT) 51.0 U/L (15-37); GLOMERULAR FILTRATION RATE,EST 50.0 mL/min (>60); PROTEIN, TOTAL 6.1 g/dL (6.4-8.2); UREA NITROGEN 25.0 mg/dL (7-18)
[2025-02-12] MEDS ORDERED: ACETAMINOPHEN 500 MG TAB PO ONE (06:00)
[2025-02-12 07:50] VITALS: BP 89/57
== END 2025-02-12 07:50 | disposition home or self-care (01) ==
LOC: ED 01:56
PROVIDERS: Family Medicine
DX: R25.2 Cramp and spasm (principal); I11.0 Hypertensive heart disease with heart failure; I50.9 Heart failure, unspecified; I48.91 Unspecified atrial fibrillation; Z88.8 Allergy status to other drugs, medicaments and biological substances
CPT/HCPCS: 36415; 80053; 85025; 93971; 99284-25; A9270

== ENCOUNTER 2025-02-14 05:56 | Emergency (ER) | payer MEDICARE, OTHER ==
[~2025-02-14] VITALS: Ht 177.8 cm; Wt 104.5 kg
--- OUTSIDE RECORDS SUMMARY | 2025-02-14 06:03 | XMS ---
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 Events No recent Security Events currently on file CRITERIA MET - 6 ED Visits in 6 Months - Group Notification - [facility] - 2 Visits in 30 Days CARE PROVIDERS BELEN COBIAN Welcome Center Attendant/Navy Diver 10/12/2022-Current PHONE: [phone] Myra Jacobson Welcome Center Attendant/Navy Diver 01/26/2022-Current PHONE: [phone] -, [facility]ist: Rail Bender Current Ld PHONE: [phone] GERARD JOYCE Nurse Practitioner: Family Current PHONE: [phone] ELA WEISS Mannequin Decoratorshira Tarango PHONE: [phone] KARRI MONREAL Internal Medicine Current PHONE: Unknown LUIZ MCDONALD Welcome Center Attendant/Navy Diver Current PHONE: [phone] YUVAL DE LA CRUZ Nurse Practitioner: Family Current PHONE: [phone] DANA KIRK Internal Medicine Current PHONE: [phone] GERRY GOLDBERG I. Physician Manager Speech Current PHONE: Unknown Margie Sethi Nurse Practitioner: Family Current PHONE: [phone] YUE SHIRLEY Nurse Practitioner Current PHONE: Unknown BECKY JENSEN Nurse Practitioner Current PHONE: [phone] CASSY [facility]EDMANH[facility] [place] Current PHONE: Unknown CASSIE BARRIGA Internal Medicine Current PHONE: Unknown DEBRA CLARK Family [facility] Current PHONE: Unknown QUE GARCIA Nurse Practitioner: Family Current PHONE: Unknown Cheko has no Care Guidelines for this patient. Sheila VISIT COUNT (12 MO.) 20 MALA Lafleur TOTAL 20 NOTE: Visits indicate total known visits. ED/UCC VISIT TRACKING (12 MO.) 02/14/2025 05:57 MALA Sethi [place] TYPE: Emergency COMPLAINT: - FOOT PAIN 02/12/2025 01:56 MALA Sethi [place] TYPE: Emergency COMPLAINT: - LEG PAIN DIAGNOSES: - Allergy status to other drugs, medicaments and biological substances - Cramp and spasm - Heart failure, unspecified - Hypertensive heart disease with heart failure - Pain in right thigh - Unspecified atrial fibrillation 02/08/2025 09:18 MALA Sethi [place] TYPE: Emergency COMPLAINT: - LEG SWELLING DIAGNOSES: - Allergy status to other drugs, medicaments and biological substances - Heart failure, unspecified - Hypertensive heart disease with heart failure - Localized edema - Other group home (current) drug therapy - Personal history [...] heart failure - Localized edema - Other group home (current) drug therapy - Other specified soft tissue disorders - Pure hypercholesterolemia, unspecified - Unspecified atrial fibrillation 01/31/2025 00:03 MALA Sethi [place] TYPE: Emergency COMPLAINT: - COLD SYMPTOMS DIAGNOSES: - Allergy status to other drugs, medicaments and biological substances - Anxiety disorder, unspecified - Cough, unspecified - Heart failure, unspecified - Hypertensive heart disease with heart failure - Other termite treater helper (current) drug therapy - Personal history of transient ischemic attack (TIA), and cerebral infarction without residual deficits - Pure hypercholesterolemia, unspecified - Unspecified atrial fibrillation 01/30/2025 02:35 MALA Sethi [place] TYPE: Emergency COMPLAINT: - SOB DIAGNOSES: - Allergy status to other drugs, medicaments and biological substances - Heart failure, unspecified - Hypertensive heart disease with heart failure - Other group home (current) drug therapy - Personal history [...] heart disease with heart failure - Other group home (current) drug therapy - Unspecified atrial fibrillation 01/10/2025 05:48 MALA Sethi [place] TYPE: Emergency COMPLAINT: - SHORTNESS OF BREATH DIAGNOSES: - Allergy status to other drugs, medicaments and biological substances - Heart failure, unspecified - Hypertensive heart disease with heart failure - Nutritional anemia, unspecified - Other termite treater helper (current) drug therapy - Personal history of [...] heart disease with heart failure - Other group home (current) drug therapy - Other viral agents as the cause of diseases classified elsewhere - Pure hypercholesterolemia, unspecified - Unspecified atrial fibrillation 01/09/2025 11:04 MALA Sethi [place] TYPE: Emergency COMPLAINT: - CHEST PAIN DIAGNOSES: - Allergy status to other drugs, medicaments and biological substances - Atherosclerotic heart disease of [place] coronary artery without angina pectoris - Chest pain, unspecified - Heart failure, unspecified - Hypertensive heart disease with heart failure - Other termite treater helper (current) drug therapy - Presence of prosthetic heart valve - Pure hypercholesterolemia, unspecified - Unspecified atrial fibrillation 01/02/2025 14:35 [facility] [place] HJair Jaffe [place] TYPE: Emergency COMPLAINT: - CHEST PAIN DIAGNOSES: - Allergy status to other drugs, medicaments and biological substances - Heart failure, unspecified - Hypertensive heart disease with heart failure - Other group home (current) drug therapy - Pain in throat - Pure hypercholesterolemia, unspecified - Unspecified atrial fibrillation 12/14/2024 11:19 MALA Hernandezgloria TejadaJair Jaffe [place] TYPE: Emergency COMPLAINT: - SHORTNESS OF BREATH DIAGNOSES: - Allergy status to other drugs, medicaments and biological substances - Heart failure, unspecified - Hypertensive heart disease with heart failure - Other group home (current) drug therapy - Shortness of breath 12/09/2024 03:[address] [facility] [address] M[facility] MalloryJair Jaffe [place] TYPE: Emergency COMPLAINT: - VOMITING DIAGNOSES: - Allergy status to other drugs, medicaments and biological substances - Essential (primary) hypertension - Nausea with vomiting, unspecified - Noninfective gastroenteritis and colitis, unspecified - Other termite treater helper (current) drug therapy - Personal history of transient ischemic attack (TIA), and cerebral infarction without residual deficits - Pneumonia, unspecified organism - Pure hypercholesterolemia, unspecified 09/25/2024 19:20 MALA Sethi [place] TYPE: Emergency COMPLAINT: - ANXIETY DIAGNOSES: - Allergy status to other drugs, medicaments and biological substances - Anxiety disorder, unspecified - Essential (primary) hypertension - Other termite treater helper (current) drug therapy - Personal history of [...] heart disease with heart failure - Other termite treater helper (current) drug therapy - Shortness of breath 08/10/2024 05:08 MALA Sethi [place] TYPE: Emergency COMPLAINT: - SHORTNESS OF BREATH DIAGNOSES: - Allergy status to other drugs, medicaments and biological substances - Cough, unspecified - Heart failure, unspecified - Hypertensive heart disease with heart failure - Other termite treater helper (current) drug therapy - Other specified chronic obstructive pulmonary disease - Unspecified atrial fibrillation 05/22/2024 16:59 [facility] [address] Reji Jaffe [place] TYPE: Emergency COMPLAINT: - CONFUSION DIAGNOSES: - Disorientation, unspecified - Heart failure, unspecified - Hypertensive heart disease with heart failure - Other group home (current) drug therapy - Unspecified atrial fibrillation 04/02/2024 23:47 MALA Sethi [place] TYPE: Emergency COMPLAINT: - POSS ANXIETY DIAGNOSES: - Anxiety disorder, unspecified - Heart failure, unspecified - Hypertensive heart disease with heart failure - Other termite treater helper (current) drug therapy - Personal history of transient ischemic attack (TIA), and cerebral infarction without residual deficits - Pure hypercholesterolemia, unspecified - Unspecified atrial fibrillation 03/27/2024 18:29 [facility] [address] Reji Jaffe [place] TYPE: Emergency COMPLAINT: - CHEST PAIN DIAGNOSES: - Anxiety disorder, unspecified - Chest pain, unspecified - Heart failure, unspecified - Hypertensive heart disease with heart failure - Other termite treater helper (current) drug therapy - Personal history of transient ischemic attack (TIA), and cerebral infarction without residual deficits - Pure hypercholesterolemia, unspecified - Unspecified dementia, unspecified severity, without behavioral disturbance, psychotic disturbance, mood disturbance, and anxiety INPATIENT VISIT TRACKING (12 MO.) No inpatient visits to display in this time frame [id number]
[2025-02-14 06:24] LABS: BASOPHILS 1.1 % (0.2-1.2); EOSINOPHILS 3.2 % (0.8-7.0); LYMPHOCYTES 15.2 % (21.8-53.1); MCH 31.5 PG (25.7-32.2); MCHC 32.5 g/dL (32.3-36.5); MCV 96.7 fL (79.0-92.2); MONOCYTES 12.4 % (5.3-12.2); NEUTROPHILS 67.7 % (34.0-67.9); RBC 3.37 M/uL (4.63-6.08)
[2025-02-14 06:44] LABS: ALT (SGPT) 25.0 U/L (14-59); AST (SGOT) 57.0 U/L (15-37); GLOMERULAR FILTRATION RATE,EST 50.0 mL/min (>60); PROTEIN, TOTAL 6.3 g/dL (6.4-8.2); UREA NITROGEN 25.0 mg/dL (7-18)
[2025-02-14] MEDS ORDERED: BUMETANIDE 1 MG/4 ML VIAL IV ONE (07:00)
[2025-02-14 07:48] VITALS: BP 119/59
== END 2025-02-14 08:00 | disposition home or self-care (01) ==
LOC: ED 05:56
PROVIDERS: Family Medicine
DX: R60.0 Localized edema (principal); I11.0 Hypertensive heart disease with heart failure; I50.9 Heart failure, unspecified; E78.00 Pure hypercholesterolemia, unspecified; I48.91 Unspecified atrial fibrillation; Z86.73 Personal history of transient ischemic attack (TIA), and cerebral infarction without residual deficits; Z88.8 Allergy status to other drugs, medicaments and biological substances; Z79.899 Other long term (current) drug therapy
CPT/HCPCS: 36415; 80053; 83735; 83880; 85025; 96374; 99284-25

== ENCOUNTER 2025-03-02 18:54 | Emergency (ER) | payer MEDICARE, OTHER ==
[~2025-03-02] VITALS: Ht 177.8 cm; Wt 105.0 kg
--- OUTSIDE RECORDS SUMMARY | ~2025-03-02 | XMS | Continuity of Care Document ---
Demographics + + + | Address | [address] | | | [place] [address] | + + + | Preferred Language | Unknown | + + + | Marital Status | | + + + | Mu-Ism Affiliation | Unknown | + + + | Race | White | + + + | Ethnic Group | Not or | + + + Author + + + | Author | [place] | + + + | Organization | [place] | + + + | Address | [address] | | | [place] [address] | + + + | Phone | | + + + Care Team Providers + + + + | Care Beam Department Supervisor Name | Role | Phone | + + + + Unavailable | Unavailable | + + + + Unavailable | Unavailable | + + + + Allergies and Intolerances + + + + + + | date | description | facility | reaction | severity | + + + + + + | 2025-01-09 | Lisinopril | [facility] | (no reaction) | (no severity) | | 00:00 | | [facility] | | | + + + + + + | 2025-01-16 | Lisinopril | [facility] - | (no reaction) | (no severity) | | 00:00 | | [facility] | | | + + + + + + | 2025-02-05 | Lisinopril | [facility] - | (no reaction) | (no severity) | | 00:00 | | [facility] | | | + + + + + + | 2025-01-09 | Olmesartan | [facility] - | (no reaction) | (no severity) | | 00:00 | | [facility] | | | + + + + + + | 2025-01-16 | Olmesartan | [facility] - | (no reaction) | (no severity) | | 00:00 | | [facility] | | | + + + + + + | 2025-02-05 | Olmesartan | [facility] - | (no reaction) | (no severity) | | 00:00 | | [facility] | | | + + + + + + | 2025-01-09 | Atorvastatin | [facility] - | Anaphylaxis | Moderate | | 00:00 | | [facility] | | | + + + + + + | 2025-01-16 | Atorvastatin | [facility] - | (no reaction) | (no severity) | | 00:00 | | [facility] | | | + + + + + + | 2025-02-05 | Atorvastatin | [facility] - | (no reaction) | (no severity) | | 00:00 | | [facility] | | | + + + + + + | 2025-01-09 | Lisinopril | [facility] - | (no reaction) | (no severity) | | 00:00 | | [facility] | | | + + + + + + | 2025-01-16 | Lisinopril | [facility] - | (no reaction) | (no severity) | | 00:00 | | [facility] | | | + + + + + + | 2025-02-05 | Lisinopril | [facility] - | (no reaction) | (no severity) | | 00:00 | | [facility] | | | + + + + + + | 2025-01-09 | Olmesartan | [facility] - | (no reaction) | (no severity) | | 00:00 | | [facility] | | | + + + + + + | 2025-01-16 | Olmesartan | [facility] - | (no reaction) | (no severity) | | 00:00 | | [facility] | | | + + + + + + | 2025-02-05 | Olmesartan | [facility] - | (no reaction) | (no severity) | | 00:00 | | [facility] | | | + + + + + + | 2025-01-09 | Atorvastatin | [facility] - | Anaphylaxis | Moderate | | 00:00 | | [facility] | | | + + + + + + | 2025-01-16 | Atorvastatin | [facility] - | (no reaction) | (no severity) | | 00:00 | | [facility] | | | + + + + + + | 2025-02-05 | Atorvastatin | [facility] - | (no reaction) | (no severity) | | 00:00 | | [facility] | | | + + + + + + | 2025-01-09 | Olmesartan | [facility] - | (no reaction) | (no severity) | | 00:00 | | [facility] | | | + + + + + + | 2025-01-16 | Olmesartan | [facility] - | (no reaction) | (no severity) | | 00:00 | | [facility] | | | + + + + + + | 2025-02-05 | Olmesartan | [facility] - | (no reaction) | (no severity) | | 00:00 | | [facility] | | | + + + + + + | 2025-01-09 | Atorvastatin | [facility] - | Anaphylaxis | Moderate | | 00:00 | | [facility] | | | + + + + + + | 2025-01-16 | Atorvastatin | [facility] - | (no reaction) | (no severity) | | 00:00 | | [facility] | | | + + + + + + | 2025-02-05 | Atorvastatin | [facility] - | (no reaction) | (no severity) | | 00:00 | | [facility] | | | + + + + + + | 2025-01-09 | Lisinopril | [facility] - | (no reaction) | (no severity) | | 00:00 | | [facility] | | | + + + + + + | 2025-01-16 | Lisinopril | [facility] - | (no reaction) | (no severity) | | 00:00 | | [facility] | | | + + + + + + | 2025-02-05 | Lisinopril | [facility] - | (no reaction) | (no severity) | | 00:00 | | [facility] | | | + + + + + + | 2025-01-09 | UNK | [facility] - | (no reaction) | (no severity) | | 00:00 | | [facility] | | | + + + + + + Encounters No information. Functional Status No information. Immunizations No information. Medications + + + + | date | description | facility | + + + + | (no date) | DOXEPIN HCL | [facility] | | | | [facility] | + + + + | (no date) | ONDANSETRON | [facility] | | | | [facility] | + + + + | (no date) | OXYCODONE HCL | [facility] | | | | [facility] | + + + + | (no date) | RIVAROXABAN | [facility] | | | | [facility] | + + + + | (no date) | DOCUSATE SODIUM | [facility] | | | [facility] | + + + + | (no date) | Ergocalciferol (Vitamin | [facility] | | | D2) | [facility] | + + + + | (no date) | QUETIAPINE FUMARATE | [facility] | | | | [facility] | + + + + | (no date) | Naloxone HCl | [facility] | | | | [facility] | + + + + | (no date) | LITHIUM CARBONATE | [facility] | | | | [facility] | + + + + | (no date) | LORAZEPAM | [facility] | | | | [facility] | + + + + | (no date) | LAMOTRIGINE | [facility] | | | | [facility] | + + + + | (no date) | ACETAMINOPHEN | [facility] | | | | [facility] | + + + + | 2025-01-09 00:00 | ACETAMINOPHEN | [facility] | | | | [facility] | + + + + | 2024-12-09 00:00 | FUROSEMIDE | [facility] | | | | [facility] | + + + + | 2025-01-10 00:00 | FUROSEMIDE | [facility] | | | [facility] | + + + + | 2025-01-30 00:00 | FUROSEMIDE | [facility] | | | | [facility] | + + + + | 2025-02-08 00:00 | FUROSEMIDE | [facility] | | | | [facility] | + + + + | (no date) | ALPRAZOLAM | [facility] | | | | [facility] | + + + + | (no date) | FLUOXETINE HCL | [facility] | | | [facility] | + + + + | (no date) | FUROSEMIDE | [facility] | | | | [facility] | + + + + | 2024-12-09 00:00 | ONDANSETRON | [facility] | | | [facility] | + + + + | (no date) | PRAZOSIN HCL | [facility] | | | | [facility] | + + + + | (no date) | LATANOPROST | [facility] | | | [facility] | + + + + | (no date) | ESCITALOPRAM OXALATE | [facility] | | | [facility] | + + + + | (no date) | ESCITALOPRAM OXALATE | [facility] | | | [facility] | + + + + | (no date) | ATORVASTATIN CALCIUM | [facility] | | | [facility] | + + + + | (no date) | ATORVASTATIN | [facility] | [facility] | + + + + | (no date) | FERROUS SULFATE | [facility] | | | | [facility] | + + + + | (no date) | DILTIAZEM HCL | [facility] | | | | [facility] | + + + + | (no date) | DILTIAZEM HCL | [facility] | | | | [facility] | + + + + | (no date) | TRAZODONE HCL | [facility] | | [facility] | + + + + | (no date) | HYDROCODONE | [facility] | | | BIT/ACETAMINOPHEN | [facility] | + + + + | (no date) | HYDROCODONE/APAP | [facility] | | | (10-325MG) | [facility] | + + + + | (no date) | ALBUTEROL SULFATE | [facility] | | | [facility] | + + + + | (no date) | TAMSULOSIN HCL | [facility] | | | | [facility] | + + + + | (no date) | BUSPIRONE HCL | [facility] | | | | [facility] | + + + + | (no date) | BUSPIRONE HCL | [facility] | | | [facility] | + + + + | 2024-12-09 00:00 | METOPROLOL SUCCINATE | [facility] | | | [facility] | + + + + | (no date) | POLYETHYLENE GLYCOL 3350 | [facility] | | | [facility] | + + + + | (no date) | POLYETHYLENE GLYCOL 3350 | [facility] | | | [facility] | + + + + | (no date) | HYDROMORPHONE HCL | [facility] | | | | [facility] | + + + + | (no date) | LOSARTAN POTASSIUM | [facility] | | | | [facility] | + + + + | (no date) | BUPROPION HCL | [facility] | | | | [facility] | + + + + | (no date) | hydrOXYzine HCL | [facility] | | | | [facility] | + + + + Problems + + + + | date | description | facility | + + + + | 2024-12-09 00:00 | Pneumonia | [facility] | | | | [facility] | + + + + | 2024-12-09 00:00 | Gastroenteritis | [facility] | | | | [facility] | + + + + | 2024-12-14 00:00 | Dyspnea | [facility] | | | | [facility] | + + + + | 2025-01-02 00:00 | Throat pain | [facility] | | | | [facility] | + + + + | 2025-01-09 00:00 | Viral pharyngitis | [facility] | | | | [facility] | + + + + | 2025-01-09 00:00 | Chest pain | [facility] | | | | [facility] | + + + + | 2025-01-10 00:00 | Mild pulmonary | [facility]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 | [facility] | + + + + | 2025-01-30 00:00 | Acute on chronic | [facility] | | | congestive heart failure | [facility] | + + + + | 2025-02-05 00:00 | Peripheral edema | [facility] | | | | [facility] | + + + + | 2025-02-08 00:00 | Edema | [facility] | | | | [facility] | + + + + | 2025-02-12 00:00 | Cramps of lower extremity | [facility] | | | | [facility] | + + + + | 2025-02-14 00:00 | Edema of lower extremity | [facility] | | | | [facility] | + + + + Procedures No information. Results/Labs +--------+--------+ +---------+--------+---------+ | test | date | facility | value | unit | notes | +--------+--------+ +---------+--------+---------+ + + | Result panel 1 | + + + + + +------+ + + | Neuts Seg | 2024-12-14 | | 73 | (missing) | (missing) | | NFr Bld | 12:16: | [facility] | | | | + + + +------+ + + + + | Result panel 2 | + + + + + +------+ + + | Lymphocytes | 2024-12-14 | | 12 | (missing) | (missing) | | NFr Bld | 12:16:07 | [facility] | | | | | [facility] | | | | + + + +------+ + + + + | Result panel 3 | + + + + + +------+ + + | Monocytes | 2024-12-14 | | 14 | (missing) | (missing) | | NFr Bld | 12:16:07 | [facility] | | | | [facility] | | | | + + + +------+ + + + + | Result panel 4 | + + + + + +-----+ + + | Neuts Band | 2024-12-14 | | 1 | (missing) | (missing) | | NFr Bld | 12:16:07 | [facility] | | | | [facility] | | | | + + + +-----+ + + + + | Result panel 5 | + + + + + + + + + | | 2025-01-02 | | NEGATIVE | (missing) | (missing) | | SARS-CoV+LAVELLE | 16:10:07 | [facility] | | | | | S-CoV-2 Ag | [facility] Resp Ql | | [facility] | | [facility] | | | | + + + + + + + + + | Result panel 6 | + + + + + + + + + | Annotation | 2025-01-02 | | SEE BELOW | (missing) | (missing) | | comment Imp | 16:10:07 | [facility] | | | | | | | - | | | | | | | [facility] | | | | + + + + + + + + + | Result panel 7 | + + + + + +--------+ + + | Prothrombin | 2025-01-09 | | 13.4 | (missing) | (missing) | | time | 11:28:07 | [facility] | | | | + + + +--------+ + + + + | Result panel 8 | + + + + + +--------+ + + | INR PPP | 2025-01-09 | | 1.09 | (missing) | (missing) | | | 11:28:07 | [facility] | | | | + + + +--------+ + + + + | Result panel 9 | + + + + + +-------+---------+ + | Magnesium | 2025-01-09 | | 2.1 | mg/dL | (missing) | | SerPl-mCnc | 11:28:07 | [facility] | | | | + + + +-------+---------+ + + + | Result panel 10 | + + + + + +--------+ + + | Troponin I | 2025-01-09 | | 12.7 | (missing) | (missing) | | SerPl | 11:28:07 | [facility] | | | | | HS-mCnc | [facility] | | | | + + + +--------+ + + + + | Result panel 11 | + + + + + +--------+ + + | WBC # Bld | 2025-01-09 | | 8.21 | (missing) | (missing) | | Auto | 11:28:07 | [facility] | | | | + + + +--------+ + + + + | Result panel 12 | + + + + + +--------+ + + | RBC # Bld | 2025-01-09 | | 3.41 | (missing) | (missing) | | Auto | 11:28:07 | [facility] | | | | + + + +--------+ + + + + | Result panel 13 | + + + + + +--------+ + + | Hgb | 2025-01-09 | | 10.9 | (missing) | (missing) | | Bld-mCnc | :07 | [facility] | | | | + + + +--------+ + + + + | Result panel 14 | + + + + + +--------+ + + | Hct VFr.DF | 2025-01-09 | | 33.2 | (missing) | (missing) | | Bld Auto | 11::07 | [facility] | | | | + + + +--------+ + + + + | Result panel 15 | + + + + + +--------+ + + | RBC Auto | 2025-01-09 | | 97.4 | (missing) | (missing) | | | :: | [facility] | | | | | | | - | | | | | | | [facility] | | | | + + + +--------+ + + + + | Result panel 16 | + + + + + +--------+ + + | MCH RBC Qn | 2025-01-09 | | 32.0 | (missing) | (missing) | | Auto | 11:28:07 | [facility] | | | | + + + +--------+ + + + + | Result panel 17 | + + + + + +--------+ + + | MCHC RBC | 2025-01-09 | | 32.8 | (missing) | (missing) | | Auto-EntMCnc | 11:28:07 | [facility] | | | | + + + +--------+ + + + + | Result panel 18 | + + + + + +-------+ + + | Platelet # | 2025-01-09 | | 150 | (missing) | (missing) | | Bld Auto | 11:28:07 | [facility] | | | | + + + +-------+ + + + + | Result panel 19 | + + + + + +--------+ + + | Neutrophils | 2025-01-09 | | 68.4 | (missing) | (missing) | | NFr Bld | 11:28:07 | [facility] | | | | | Auto | [facility] | | | | + + + +--------+ + + + + | Result panel 20 | + + + + + +--------+ + + | Lymphocytes | 2025-01-09 | | 15.6 | (missing) | (missing) | | NFr Bld | 11:28:07 | [facility] | | | | | Auto | [facility] | | | | + + + +--------+ + + + + | Result panel 21 | + + + + + +--------+ + + | Monocytes | 2025-01-09 | | 11.7 | (missing) | (missing) | | NFr Bld Auto | 11:28:07 | [facility] | | | | + + + +--------+ + + + + | Result panel 22 | + + + + + +-------+ + + | Eosinophil | 2025-01-09 | | 2.6 | (missing) | (missing) | | NFr Bld Auto | 11:28:07 | [facility] | | | | + + + +-------+ + + + + | Result panel 23 | + + + + + +-------+ + + | Basophils | 2025-01-09 | | 1.0 | (missing) | (missing) | | NFr Bld Auto | 11:28:07 | [facility] | | | | + + + +-------+ + + + + | Result panel 24 | + + + + + +--------+ + + | Prothrombin | 2025-01-09 | | 13.4 | (missing) | (missing) | | time | : | [facility] | | | | + + + +--------+ + + + + | Result panel 25 | + + + + + +--------+ + + | INR PPP | 2025-01-09 | | 1.09 | (missing) | (missing) | | | :28:07 | [facility] | | | | + + + +--------+ + + + + | Result panel 26 | + + + + + +-------+---------+ + | Glucose | 2025-01-09 | | 101 | mg/dL | (missing) | | [facility] | 11:28:07 | [facility] | | | | + + + +-------+---------+ + + + | Result panel 27 | + + + + + +------+---------+ + | BUN | 2025-01-09 | | 29 | mg/dL | (missing) | | [facility]gal-[facility] | 11:28:07 | [facility] | | | | + + + +------+---------+ + + + | Result panel 28 | + + + + + +--------+---------+ + | Creat | 2025-01-09 | | 1.32 | mg/dL | (missing) | | [facility] | 11:28:07 | [facility] | | | | + + + +--------+---------+ + + + | Result panel 29 | + + + + + +------+ + + | eGFRcr | 2025-01-09 | | 54 | (missing) | (missing) | | SerPlBld | 11:28:07 | [facility] | | | | | CKD-EPI 2020 | [facility] | | | | + + + +------+ + + + + | Result panel 30 | + + + + + +---------+ + + | BUN/Creat | 2025-01-09 | | 21.96 | (missing) | (missing) | | SerPl | 11:28:07 | [facility] | | | | + + + +---------+ + + + + | Result panel 31 | + + + + + +-------+ + + | Sodium | 2025-01-09 | | 140 | (missing) | (missing) | | SerPl-sCnc | 11:28:07 | [facility] | | | | + + + +-------+ + + + + | Result panel 32 | + + + + + +-------+ + + | Potassium | 2025-01-09 | | 4.4 | (missing) | (missing) | | SerPl-sCnc | 11:28:07 | [facility] | | | | + + + +-------+ + + + + | Result panel 33 | + + + + + +-------+ + + | Chloride | 2025-01-09 | | 106 | (missing) | (missing) | | SerPl-sCnc | 11:28:07 | [facility] | | | | + + + +-------+ + + + + | Result panel 34 | + + + + + +------+ + + | CO2 | 2025-01-09 | | 26 | (missing) | (missing) | | SerPl-sCnc | 11:28:07 | [facility] | | | | + + + +------+ + + + + | Result panel 35 | + + + + + +--------+ + + | Anion Gap | 2025-01-09 | | 12.4 | (missing) | (missing) | | SerPl | 11:28:07 | [facility] | | | | | Calculated.4 | | [facility] | [facility]-s[facility]nc | | [facility] | | | | + + + +--------+ + + + + | Result panel 36 | + + + + + +-------+---------+ + | Calcium | 2025-01-09 | | 8.7 | mg/dL | (missing) | | SerPl-mCnc | 11:28:07 | [facility] | | | | + + + +-------+---------+ + + + | Result panel 37 | + + + + + +-------+---------+ + | Magnesium | 2025-01-09 | | 2.1 | mg/dL | (missing) | | [facility] | 11:28:07 | [facility] | | | | + + + +-------+---------+ + + + | Result panel 38 | + + + + + +-------+ + + | Prot | 2025-01-09 | | 6.4 | (missing) | (missing) | | SerPl-mCnc | 11:28:07 | [facility] | | | | + + + +-------+ + + + + | Result panel 39 | + + + + + +-------+ + + | Albumin | 2025-01-09 | | 3.3 | (missing) | (missing) | | SerPl-mCnc | 11:28:07 | [facility] | | | | + + + +-------+ + + + + | Result panel 40 | + + + + + +-------+ + + | Globulin | 2025-01-09 | | 3.1 | (missing) | (missing) | | Ser-mCnc | 11:28:07 | [facility] | | | | + + + +-------+ + + + + | Result panel 41 | + + + + + +--------+ + + | | 2025-01-09 | | 1.06 | (missing) | (missing) | | Albumin/Glob | 11:28:07 | [facility] | | | | | SerPl | [facility] | | | | + + + +--------+ + + + + | Result panel 42 | + + + + + +-------+---------+ + | Bilirub | 2025-01-09 | | 1.3 | mg/dL | (missing) | | SerPl-mCnc | 11:28:07 | [facility] | | | | + + + +-------+---------+ + + + | Result panel 43 | + + + + + +------+ + + | AST | 2025-01-09 | | 60 | (missing) | (missing) | | SerPl-cCnc | 11:28:07 | [facility] | | | | + + + +------+ + + + + | Result panel 44 | + + + + + +------+ + + | ALT | 2025-01-09 | | 30 | (missing) | (missing) | | SerPl-cCn | 11:28:07 | [facility] | | | | + + + +------+ + + + + | Result panel 45 | + + + + + +------+ + + | ALP | 2025-01-09 | | 83 | (missing) | (missing) | | [facility] | 11:28:07 | [facility] | | | | + + + +------+ + + + + | Result panel 46 | + + + + + +--------+ + + | Troponin I | 2025-01-09 | | 12.7 | (missing) | (missing) | | SerPl | 11:28:07 | [facility] | | | | | [facility] | | | | + + + +--------+ + + + + | Result panel 47 | + + + + + +--------+ + + | Prothrombin | 2025-01-09 | | 13.4 | (missing) | (missing) | | time | 11:28:07 | [facility] | | | | + + + +--------+ + + + + | Result panel 48 | + + + + + +--------+ + + | INR PPP | 2025-01-09 | | 1.09 | (missing) | (missing) | | | 11:28:07 | [facility] | | | | + + + +--------+ + + + + | Result panel 49 | + + + + + +-------+---------+ + | Magnesium | 2025-01-09 | | 2.1 | mg/dL | (missing) | | SerPl-m[facility]nc | 11:28:07 | [facility] | | | | + + + +-------+---------+ + + + | Result panel 50 | + + + + + +--------+ + + | Troponin I | 2025-01-09 | | 12.7 | (missing) | (missing) | | SerPl | :07 | [facility] | | | | | [facility] | | | | + + + +--------+ + + + + | Result panel 51 | + + + + + + + + + | | 2025-01-30 | | NEGATIVE | (missing) | (missing) | | SARS-CoV+LAV[place]LE | :: | [facility] | | | | | S-CoV-2 Ag [facility] | | [facility] | | [facility] | | | | + + + + + + + + + | Result panel 52 | + + + + + + + + + | Annotation | 2025-01-30 | | SEE BELOW | (missing) | (missing) | | comment Imp | : | [facility] | | | | | | | [facility] | | | | + + + + + + + + + | Result panel 53 | + + + + + + + + + | | 2025-01-30 | | NEGATIVE | (missing) | (missing) | | SARS-CoV+[place] | 03:09:07 | [facility] | | | | | S-CoV-2 Ag | [facility] | [facility] | Resp Ql | [facility] | [facility] [place] | | [facility] | | | | + + + + + + + + + | Result panel 54 | + + + + + + + + + | Annotation | 2025-01-30 | | SEE BELOW | (missing) | (missing) | | comment Imp | 03::07 | [facility] | | | | | | | - | | | | | | | [facility] | | | | + + + + + + + + + | Result panel 55 | + + + + + + + + + | | 2025-01-30 | | NEGATIVE | (missing) | (missing) | | SARS-CoV+[place]LE | 03:09:07 | [facility] | | | | | S-CoV-2 Ag | | - | | | | | Resp Ql | | [facility] | | | | rapid | | [facility] | | | | + + + + + + + + + | Result panel 56 | + + + + + + + + + | Annotation | 2025-01-30 | | SEE BELOW | (missing) | (missing) | | comment Imp | 03:09:07 | [facility] | | | | | | | - | | | | | | | [facility] | | | [facility] | | | | + + + + + + + + + | Result panel 57 | + + + + + +-------+ + + | Globulin | 2025-01-30 | | 3.3 | (missing) | (missing) | | Ser-mCnc | 03:15:07 | [facility] | | | | + + + +-------+ + + + + | Result panel 58 | + + + + + +--------+ + + | | 2025-01-30 | | 0.82 | (missing) | (missing) | | Albumin/Glob | 03:15:07 | [facility] | | | | | SerPl | [facility] | | | | + + + +--------+ + + + + | Result panel 59 | + + + + + +-------+---------+ + | Bilirub | 2025-01-30 | | 0.9 | mg/dL | (missing) | | SerPl-mCnc | 03:15:07 | [facility] | | | | + + + +-------+---------+ + + + | Result panel 60 | + + + + + +------+ + + | AST | 2025-01-30 | | 38 | (missing) | (missing) | | SerPl-cCnc | 03:15:07 | [facility] | | | | + + + +------+ + + + + | Result panel 61 | + + + + + +------+ + + | ALT | 2025-01-30 | | 19 | (missing) | (missing) | | SerPl-cCnc | 03:15:07 | [facility] | | | | + + + +------+ + + + + | Result panel 62 | + + + + + +------+ + + | ALP | 2025-01-30 | | 99 | (missing) | (missing) | | [facility] | 03:15:07 | [facility] | | | | + + + +------+ + + + + | Result panel 63 | + + + + + +--------+ + + | WBC # Bld | 2025-01-30 | | 5.41 | (missing) | (missing) | | Auto | 03:15:07 | [facility] | | | | + + + +--------+ + + + + | Result panel 64 | + + + + + +--------+ + + | RBC # Bld | 2025-01-30 | | 3.07 | (missing) | (missing) | | Auto | 03:15:07 | [facility] | | | | + + + +--------+ + + + + | Result panel 65 | + + + + + +-------+ + + | Hgb | 2025-01-30 | | 9.9 | (missing) | (missing) | | Bld-mCnc | 03:15:07 | [facility] | | | | + + + +-------+ + + + + | Result panel 66 | + + + + + +--------+ + + | Hct VFr.DF | 2025-01-30 | | 30.2 | (missing) | (missing) | | Bld Auto | 03:15:07 | [facility] | | | | + + + +--------+ + + + + | Result panel 67 | + + + + + +--------+ + + | RBC Auto | 2025-01-30 | | 98.4 | (missing) | (missing) | | | 03:15:07 | [facility] | | | | + + + +--------+ + + + + | Result panel 68 | + + + + + +--------+ + + | MCH RBC Qn | 2025-01-30 | | 32.2 | (missing) | (missing) | | Auto | 03:15:07 | [facility] | | | | + + + +--------+ + + + + | Result panel 69 | + + + + + +--------+ + + | MCHC RBC | 2025-01-30 | | 32.8 | (missing) | (missing) | | Auto-EntMCnc | 03:15:07 | [facility] | | | | + + + +--------+ + + + + | Result panel 70 | + + + + + +-------+ + + | Platelet # | 2025-01-30 | | 134 | (missing) | (missing) | | Bld Auto | 03:15:07 | [facility] | | | | + + + +-------+ + + + + | Result panel 71 | + + + + + +--------+ + + | Neutrophils | 2025-01-30 | | 62.7 | (missing) | (missing) | | NFr Bld | 03:15:07 | [facility] | | | | | Auto | [facility] | | | | + + + +--------+ + + + + | Result panel 72 | + + + + + +--------+ + + | Lymphocytes | 2025-01-30 | | 17.4 | (missing) | (missing) | | NFr Bld | 03:15:07 | [facility] | | | | | Auto | [facility] | | | | + + + +--------+ + + + + | Result panel 73 | + + + + + +--------+ + + | Monocytes | 2025-01-30 | | 13.9 | (missing) | (missing) | | NFr Bld Auto | 03:15:07 | [facility] | | | | + + + +--------+ + + + + | Result panel 74 | + + + + + +-------+ + + | Eosinophil | 2025-01-30 | | 4.1 | (missing) | (missing) | | NFr Bld Auto | 03:15:07 | [facility] | | | | + + + +-------+ + + + + | Result panel 75 | + + + + + +-------+ + + | Basophils | 2025-01-30 | | 1.3 | (missing) | (missing) | | NFr Bld Auto | 03:15:07 | [facility] | | | | + + + +-------+ + + + + | Result panel 76 | + + + + + +------+---------+ + | Glucose | 2025-01-30 | | 99 | mg/dL | (missing) | | SerPl-mCnc | 03:15:07 | [facility] | | | | + + + +------+---------+ + + + | Result panel 77 | + + + + + +------+---------+ + | BUN | 2025-01-30 | | 33 | mg/dL | (missing) | | SerPl-mCnc | 03:15:07 | [facility] | [facility] | | | | + + + +------+---------+ + + + | Result panel 78 | + + + + + +--------+---------+ + | Creat | 2025-01-30 | | 1.33 | mg/dL | (missing) | | SerPl-[facility] | 03:15:07 | [facility] | | | | + + + +--------+---------+ + + + | Result panel 79 | + + + + + +------+ + + | eGFRcr | 2025-01-30 | | 54 | (missing) | (missing) | | SerPlBld | 03:15:07 | [facility] | | | | | CKD-EPI 2020 | [facility] | | | | + + + +------+ + + + + | Result panel 80 | + + + + + +---------+ + + | BUN/Creat | 2025-01-30 | | 24.81 | (missing) | (missing) | | SerPl | 03:15:07 | [facility] | | | | + + + +---------+ + + + + | Result panel 81 | + + + + + +-------+ + + | Sodium | 2025-01-30 | | 139 | (missing) | (missing) | | SerPl-sCnc | 03:15:07 | [facility] | | | | + + + +-------+ + + + + | Result panel 82 | + + + + + +-------+ + + | Potassium | 2025-01-30 | | 3.6 | (missing) | (missing) | | SerPl-sCnc | 03:15:07 | [facility] | | | | + + + +-------+ + + + + | Result panel 83 | + + + + + +-------+ + + | Chloride | 2025-01-30 | | 105 | (missing) | (missing) | | SerPl-sCnc | 03:15:07 | [facility] | | | | + + + +-------+ + + + + | Result panel 84 | + + + + + +------+ + + | CO2 | 2025-01-30 | | 27 | (missing) | (missing) | | SerPl-sCnc | 03:15:07 | [facility] | | | | + + + +------+ + + + + | Result panel 85 | + + + + + +--------+ + + | Anion Gap | 2025-01-30 | | 10.6 | (missing) | (missing) | | SerPl | 03:15:07 | [facility] | | | | | Calculated.4 | [facility] Ions-sCnc | [facility] | | | | + + + +--------+ + + + + | Result panel 86 | + + + + + +-------+---------+ + | Calcium | 2025-01-30 | | 8.5 | mg/dL | (missing) | | SerPl-mCnc | 03:15:07 | [facility] | | | | + + + +-------+---------+ + + + | Result panel 87 | + + + + + +-------+ + + | Prot | 2025-01-30 | | 6.0 | (missing) | (missing) | | [facility] | 03:15:07 | [facility] | | | | + + + +-------+ + + + + | Result panel 88 | + + + + + +-------+ + + | Albumin | 2025-01-30 | | 2.7 | (missing) | (missing) | | SerPl-mCnc | 03:15:07 | [facility] | | | | + + + +-------+ + + + + | Result panel 89 | + + + + + +--------+ + + | WBC # Bld | 2025-02-05 | | 7.00 | (missing) | (missing) | | Auto | 12:00:07 | [facility] | | | | + + + +--------+ + + + + | Result panel 90 | + + + + + +--------+ + + | Lymphocytes | 2025-02-05 | | 13.7 | (missing) | (missing) | | NFr Bld | 12:00:07 | [facility] | | | | | Auto | [facility] | | | | + + + +--------+ + + + + | Result panel 91 | + + + + + +--------+ + + | Monocytes | 2025-02-05 | | 11.9 | (missing) | (missing) | | NFr Bld Auto | 12:00:07 | [facility] | | | | + + + +--------+ + + + + | Result panel 92 | + + + + + +-------+ + + | Eosinophil | 2025-02-05 | | 3.0 | (missing) | (missing) | | NFr Bld Auto | 12:00:07 | [facility] | | | | | | | - | | | | | | | [facility] | | | | + + + +-------+ + + + + | Result panel 93 | + + + + + +-------+ + + | Basophils | 2025-02-05 | | 1.0 | (missing) | (missing) | | NFr Bld Auto | 12:00:07 | [facility] | | | | | | | - | | | | | | | [facility] | | | | + + + +-------+ + + + + | Result panel 94 | + + + + + +-------+---------+ + | Glucose | 2025-02-05 | | 101 | mg/dL | (missing) | | SerPl-mCcaridad | 12:00:07 | [facility] | | | | + + + +-------+---------+ + + + | Result panel 95 | + + + + + +------+---------+ + | BUN | 2025-02-05 | | 27 | mg/dL | (missing) | | SerPl-mCnc | 12:00:07 | [facility] | | | | + + + +------+---------+ + + + | Result panel 96 | + + + + + +--------+---------+ + | Creat | 2025-02-05 | | 1.26 | mg/dL | (missing) | | SerPl-mCcaridad | 12:00:07 | [facility] | | | | + + + +--------+---------+ + + + | Result panel 97 | + + + + + +------+ + + | eGFRcr | 2025-02-05 | | 57 | (missing) | (missing) | | SerPlBld | 12:00:07 | [facility] | | | | | CKD-EPI 2020 | [facility] | | | | + + + +------+ + + + + | Result panel 98 | + + + + + +---------+ + + | BUN/Creat | 2025-02-05 | | 21.42 | (missing) | (missing) | | SerPl | 12:00:07 | [facility] | | | | + + + +---------+ + + + + | Result panel 99 | + + + + + +-------+ + + | Sodium | 2025-02-05 | | 139 | (missing) | (missing) | | SerPl-sCnc | 12:00:07 | [facility] | | | | + + + +-------+ + + + + | Result panel 100 | + + + + + +--------+ + + | RBC # Bld | 2025-02-05 | | 3.36 | (missing) | (missing) | | Auto | 12:00:07 | [facility] | | | | + + + +--------+ + + + + | Result panel 101 | + + + + + +-------+ + + | Potassium | 2025-02-05 | | 4.2 | (missing) | (missing) | | SerPl-sCnc | 12:00:07 | [facility] | | | | + + + +-------+ + + + + | Result panel 102 | + + + + + +-------+ + + | Chloride | 2025-02-05 | | 105 | (missing) | (missing) | | SerPl-sCnc | 12:00:07 | [facility] | | | | + + + +-------+ + + + + | Result panel 103 | + + + + + +------+ + + | CO2 | 2025-02-05 | | 29 | (missing) | (missing) | | SerPl-sCnc | 12:00:07 | [facility] | | | | + + + +------+ + + + + | Result panel 104 | + + + + + +-------+ + + | Anion Gap | 2025-02-05 | | 9.2 | (missing) | (missing) | | SerPl | 12:00:07 | [facility] | | | | | Calculated.4 | [facility] I[facility]-sCnc | [facility] | | | | + + + +-------+ + + + + | Result panel 105 | + + + + + +-------+---------+ + | Calcium | 2025-02-05 | | 8.7 | mg/dL | (missing) | | SerPl-mCmo | 12:00:07 | [facility] | | | | + + + +-------+---------+ + + + | Result panel 106 | + + + + + +-------+ + + | Prot | 2025-02-05 | | 6.0 | (missing) | (missing) | | SerPl-mCnc | 12:00:07 | [facility] | | | | + + + +-------+ + + + + | Result panel 107 | + + + + + +-------+ + + | Albumin | 2025-02-05 | | 2.7 | (missing) | (missing) | | SerPl-mCnc | 12:00:07 | [facility] | | | | + + + +-------+ + + + + | Result panel 108 | + + + + + +-------+ + + | Globulin | 2025-02-05 | | 3.3 | (missing) | (missing) | | Ser-mCnc | 12:00:07 | [facility] | | | | + + + +-------+ + + + + | Result panel 109 | + + + + + +--------+ + + | | 2025-02-05 | | 0.82 | (missing) | (missing) | | Albumin/Glob | 12:00:07 | [facility] | | | SerPl [facility] | | | | + + + +--------+ + + + + | Result panel 110 | + + + + + +-------+---------+ + | Bilirub | 2025-02-05 | | 0.9 | mg/dL | (missing) | | SerPl-mCnc | 12:00:07 | [facility] | | | | + + + +-------+---------+ + + + | Result panel 111 | + + + + + +--------+ + + | Hgb | 2025-02-05 | | 10.5 | (missing) | (missing) | | Bld-mCnc | 12:00:07 | [facility] | | | | + + + +--------+ + + + + | Result panel 112 | + + + + + +------+ + + | AST | 2025-02-05 | | 51 | (missing) | (missing) | | SerPl-cCnc | 12:00:07 | [facility] | | | | + + + +------+ + + + + | Result panel 113 | + + + + + +------+ + + | ALT | 2025-02-05 | | 23 | (missing) | (missing) | | SerPl-cCnc | 12:00:07 | [facility] | | | | + + + +------+ + + + + | Result panel 114 | + + + + + +------+ + + | ALP | 2025-02-05 | | 97 | (missing) | (missing) | | [facility] | 12:00:07 | [facility] | | | | + + + +------+ + + + + | Result panel 115 | + + + + + +--------+ + + | Hct VFr.DF | 2025-02-05 | | 32.8 | (missing) | (missing) | | Bld Auto | 12::07 | [facility] - [facility] | | [facility] | | | | + + + +--------+ + + + + | Result panel 116 | + + + + + +--------+ + + | RBC Auto | 2025-02-05 | | 97.6 | (missing) | (missing) | | | 12:00:07 | [facility] | | | | | | | - | | | | | | [facility] | | | | + + + +--------+ + + + + | Result panel 117 | + + + + + +--------+ + + | MCH RBC Qn | 2025-02-05 | | 31.3 | (missing) | (missing) | | Auto | 12:00:07 | [facility] | | | | | | | - | [facility] | | | | [facility] | | | | + + + +--------+ + + + + | Result panel 118 | + + + + + +--------+ + + | MCHC RBC | 2025-02-05 | | 32.0 | (missing) | (missing) | | Auto-EntMCnc | 12:00:07 | [facility] | | | | + + + +--------+ + + + + | Result panel 119 | + + + + + +-------+ + + | Platelet # | 2025-02-05 | | 138 | (missing) | (missing) | | Bld Auto | 12:00:07 | [facility] | | | | + + + +-------+ + + + + | Result panel 120 | + + + + + +--------+ + + | Neutrophils | 2025-02-05 | | 69.8 | (missing) | (missing) | | NFr Bld | 12:00:07 | [facility] | | | | | Auto | [facility] | | | | + + + +--------+ + + + + | Result panel 121 | + + + + + +--------+ + + | WBC # Bld | 2025-02-14 | | 5.71 | (missing) | (missing) | | Auto | 06:16:07 | [facility] | | | | + + + +--------+ + + + + | Result panel 122 | + + + + + +--------+ + + | RBC # Bld | 2025-02-14 | | 3.37 | (missing) | (missing) | | Auto | 06:16:07 | [facility] | | | | + + + +--------+ + + + + | Result panel 123 | + + + + + +--------+ + + | Hgb | 2025-02-14 | | 10.6 | (missing) | (missing) | | Bld-mCnc | 06:16:07 | [facility] | | | | + + + +--------+ + + + + | Result panel 124 | + + + + + +--------+ + + | Hct VFr.DF | 2025-02-14 | | 32.6 | (missing) | (missing) | | Bld Auto | 06:16:07 | [facility] | | | | [facility] - [facility] | | | [facility] | | | | + + + +--------+ + + + + | Result panel 125 | + + + + + +--------+ + + | RBC Auto | 2025-02-14 | | 96.7 | (missing) | (missing) | | | 06:16:07 | [facility] | | | | + + + +--------+ + + + + | Result panel 126 | + + + + + +--------+ + + | MCH RBC Qn | 2025-02-14 | | 31.5 | (missing) | (missing) | | Auto | 06:16:07 | [facility] | | | | + + + +--------+ + + + + | Result panel 127 | + + + + + +--------+ + + | MCHC RBC | 2025-02-14 | | 32.5 | (missing) | (missing) | | Auto-EntMCnc | 06:16:07 | [facility] | | | | + + + +--------+ + + + + | Result panel 128 | + + + + + +-------+ + + | Platelet # | 2025-02-14 | | 144 | (missing) | (missing) | | Bld Auto | 06:16:07 | [facility] | | | | + + + +-------+ + + + + | Result panel 129 | + + + + + +--------+ + + | Neutrophils | 2025-02-14 | | 67.7 | (missing) | (missing) | | NFr Bld | 06:16:07 | [facility] | | | | | Auto | [facility] | | | | + + + +--------+ + + + + | Result panel 130 | + + + + + +--------+ + + | Lymphocytes | 2025-02-14 | | 15.2 | (missing) | (missing) | | NFr Bld | 06:16:07 | [facility] | | | | Auto | [facility] | | | | + + + +--------+ + + + + | Result panel 131 | + + + + + +--------+ + + | Monocytes | 2025-02-14 | | 12.4 | (missing) | (missing) | | NFr Bld Auto | 06:16:07 | [facility] | | | | + + + +--------+ + + + + | Result panel 132 | + + + + + +-------+ + + | Eosinophil | 2025-02-14 | | 3.2 | (missing) | (missing) | | NFr Bld Auto | 06:16:07 | [facility] | | | | + + + +-------+ + + + + | Result panel 133 | + + + + + +-------+ + + | Basophils | 2025-02-14 | | 1.1 | (missing) | (missing) | | NFr Bld Auto | 06:16:07 | [facility] | | | | + + + +-------+ + + + + | Result panel 134 | + + + + + +------+---------+ + | Glucose | 2025-02-14 | | 95 | mg/dL | (missing) | | SerPl-mCnc | 06:16:07 | [facility] | | | | + + + +------+---------+ + + + | Result panel 135 | + + + + + +------+---------+ + | BUN | 2025-02-14 | | 25 | mg/dL | (missing) | | [facility] | 06:16:07 | [facility] | | | | + + + +------+---------+ + + + | Result panel 136 | + + + + + +--------+---------+ + | Creat | 2025-02-14 | | 1.40 | mg/dL | (missing) | | SerPl-mCcaridad | 06:16:07 | [facility] | | | | + + + +--------+---------+ + + + | Result panel 137 | + + + + + +------+ + + | eGFRcr | 2025-02-14 | | 50 | (missing) | (missing) | | SerPlBld | 06:16:07 | [facility] | | | | | CKD-EPI 2020 | [facility] | | | | + + + +------+ + + + + | Result panel 138 | + + + + + +---------+ + + | BUN/Creat | 2025-02-14 | | 17.85 | (missing) | (missing) | | SerPl | 06:16:07 | [facility] | | | | + + + +---------+ + + + + | Result panel 139 | + + + + + +-------+ + + | Sodium | 2025-02-14 | | 138 | (missing) | (missing) | | Ser[facility]-sCnc | 06:16:07 | [facility] | | | | + + + +-------+ + + + + | Result panel 140 | + + + + + +-------+ + + | Potassium | 2025-02-14 | | 3.7 | (missing) | (missing) | | [facility]-s[facility]nc | 06:16:07 | [facility] | | | | + + + +-------+ + + + + | Result panel 141 | + + + + + +-------+ + + | Chloride | 2025-02-14 | | 103 | (missing) | (missing) | | SerPl-sCnc | 06:16:07 | [facility] | | | | + + + +-------+ + + + + | Result panel 142 | + + + + + +------+ + + | CO2 | 2025-02-14 | | 29 | (missing) | (missing) | | SerPl-s[facility]nc | 06:16:07 | [facility] | | | | + + + +------+ + + + + | Result panel 143 | + + + + + +-------+ + + | Anion Gap | 2025-02-14 | | 9.7 | (missing) | (missing) | | SerPl | 06:16:07 | [facility] | | | | | Calculated.4 | [facility] | | | | + + + +-------+ + + + + | Result panel 144 | + + + + + +-------+---------+ + | Calcium | 2025-02-14 | | 9.1 | mg/dL | (missing) | | [facility] | 06:16:07 | [facility] | | | | + + + +-------+---------+ + + + | Result panel 145 | + + + + + +-------+---------+ + | Magnesium | 2025-02-14 | | 2.2 | mg/dL | (missing) | | [facility] | 06:16:07 | [facility] | | | | + + + +-------+---------+ + + + | Result panel 146 | + + + + + +-------+ + + | Prot | 2025-02-14 | | 6.3 | (missing) | (missing) | | [facility] | 06:16:07 | [facility] | | | | + + + +-------+ + + + + | Result panel 147 | + + + + + +-------+ + + | Albumin | 2025-02-14 | | 2.7 | (missing) | (missing) | | [facility] | 06:16:07 | [facility] | | | | + + + +-------+ + + + + | Result panel 148 | + + + + + +-------+ + + | Globulin | 2025-02-14 | | 3.6 | (missing) | (missing) | | Ser-caridad | 06:16:07 | [facility] | | | | + + + +-------+ + + + + | Result panel 149 | + + + + + +--------+ + + | | 2025-02-14 | | 0.75 | (missing) | (missing) | | Albumin/Glob | 06:16:07 | [facility] | | | | + + + +--------+ + + + + | Result panel 150 | + + + + + +-------+---------+ + | Bilirub | 2025-02-14 | | 1.2 | mg/dL | (missing) | | SerPl-m[facility]nc | 06:16:07 | [facility] | | | | + + + +-------+---------+ + + + | Result panel 151 | + + + + + +------+ + + | AST | 2025-02-14 | | 57 | (missing) | (missing) | | SerPl-cCnc | 06:16:07 | [facility] | | | | + + + +------+ + + + + | Result panel 152 | + + + + + +------+ + + | ALT | 2025-02-14 | | 25 | (missing) | (missing) | | [facility] | 06:16:07 | [facility] | | | | + + + +------+ + + + + | Result panel 153 | + + + + + +------+ + + | ALP | 2025-02-14 | | 99 | (missing) | (missing) | | [facility] | 06:16:07 | [facility] | | [facility] | | | | + + + +------+ + + Social History +--------+ + + | date | description | facility | +--------+ + + Vital Signs + + + +---------+ | date | measurement | value | units | + + + +---------+ | 2024-12-14 00:00 | BMI | 31.1 | kg/m2 | + + + +---------+ | 2024-12-14 00:00 | BP_diastolic | 80 | mmHg | + + + +---------+ | 2024-12-14 00:00 | BP_systolic | 148 | mmHg | + + + +---------+ | 2024-12-14 00:00 | heart_rate | 88 | /min | + + + +---------+ | 2024-12-14 00:00 | height_metric | 177.8 | cm | + + + +---------+ | 2024-12-14 00:00 | height_standard | 70 | in | + + + +---------+ | 2024-12-14 00:00 | o2_saturation | 98 | % | + + + +---------+ | 2024-12-14 00:00 | respiration_rate | 19 | /min | + + + +---------+ | 2024-12-14 00:00 | | 97.7 | F | | | temperature_standar | | | | | d | | | + + + +---------+ | 2024-12-14 00:00 | weight_metric | 98.401 | kg | + + + +---------+ | 2024-12-14 00:00 | weight_standard | 216.937 | lb | + + + +---------+ | 2025-01-02 00:00 | BMI | 31.1 | kg/m2 | + + + +---------+ | 2025-01-02 00:00 | BP_diastolic | 86 | mmHg | + + + +---------+ | 2025-01-02 00:00 | BP_systolic | 109 | mmHg | + + + +---------+ | 2025-01-02 00:00 | heart_rate | 68 | /min | + + + +---------+ | 2025-01-02 00:00 | height_metric | 177.8 | cm | + + + +---------+ | 2025-01-02 00:00 | height_standard | 70 | in | + + + +---------+ | 2025-01-02 00:00 | o2_saturation | 94 | % | + + + +---------+ | 2025-01-02 00:00 | respiration_rate | 24 | /min | + + + +---------+ | 2025-01-02 00:00 | | 97.9 | F | | | temperature_standar | | | | | d | | | + + + +---------+ | 2025-01-02 00:00 | weight_metric | 98.401 | kg | + + + +---------+ | 2025-01-02 00:00 | weight_standard | 216.937 | lb | + + + +---------+ | 2025-01-09 00:00 | BMI | 33.3 | kg/m2 | + + + +---------+ | 2025-01-09 00:00 | BMI | 33.5 | kg/m2 | + + + +---------+ | 2025-01-09 00:00 | BP_diastolic | 68 | mmHg | + + + +---------+ | 2025-01-09 00:00 | BP_diastolic | 88 | mmHg | + + + +---------+ | 2025-01-09 00:00 | BP_systolic | 133 | mmHg | + + + +---------+ | 2025-01-09 00:00 | BP_systolic | 135 | mmHg | + + + +---------+ | 2025-01-09 00:00 | heart_rate | 88 | /min | + + + +---------+ | 2025-01-09 00:00 | heart_rate | 96 | /min | + + + +---------+ | 2025-01-09 00:00 | height_metric | 177.8 | cm | + + + +---------+ | 2025-01-09 00:00 | height_standard | 70 | in | + + + +---------+ | 2025-01-09 00:00 | o2_saturation | 98 | % | + + + +---------+ | 2025-01-09 00:00 | respiration_rate | 16 | /min | + + + +---------+ | 2025-01-09 00:00 | respiration_rate | 21 | /min | + + + +---------+ | 2025-01-09 00:00 | | 97.7 | F | | | temperature_standar | | | | | d | | | + + + +---------+ | 2025-01-09 00:00 | | 98.4 | F | | | temperature_standar | | | | | d | | | + + + +---------+ | 2025-01-09 00:00 | weight_metric | 105.401 | kg | + + + +---------+ | 2025-01-09 00:00 | weight_metric | 105.9 | kg | + + + +---------+ | 2025-01-09 00:00 | weight_standard | 232.368 | lb | + + + +---------+ | 2025-01-09 00:00 | weight_standard | 233.468 | lb | + + + +---------+ | 2025-01-10 00:00 | BMI | 31.4 | kg/m2 | + + + +---------+ | 2025-01-10 00:00 | BP_diastolic | 57 | mmHg | + + + +---------+ | 2025-01-10 00:00 | BP_systolic | 105 | mmHg | + + + +---------+ | 2025-01-10 00:00 | heart_rate | 86 | /min | + + + +---------+ | 2025-01-10 00:00 | height_metric | 177.8 | cm | + + + +---------+ | 2025-01-10 00:00 | height_standard | 70 | in | + + + +---------+ | 2025-01-10 00:00 | o2_saturation | 100 | % | + + + +---------+ | 2025-01-10 00:00 | respiration_rate | 18 | /min | + + + +---------+ | 2025-01-10 00:00 | | 97.9 | F | | | temperature_standar | | | | | d | | | + + + +---------+ | 2025-01-10 00:00 | weight_metric | 99.3 | kg | + + + +---------+ | 2025-01-10 00:00 | weight_standard | 218.918 | lb | + + + +---------+ | 2025-01-16 00:00 | BMI | 30.7 | kg/m2 | + + + +---------+ | 2025-01-16 00:00 | BP_diastolic | 61 | mmHg | + + + +---------+ | 2025-01-16 00:00 | BP_systolic | 124 | mmHg | + + + +---------+ | 2025-01-16 00:00 | heart_rate | 75 | /min | + + + +---------+ | 2025-01-16 00:00 | height_metric | 177.8 | cm | + + + +---------+ | 2025-01-16 00:00 | height_standard | 70 | in | + + + +---------+ | 2025-01-16 00:00 | o2_saturation | 99 | % | + + + +---------+ | 2025-01-16 00:00 | respiration_rate | 20 | /min | + + + +---------+ | 2025-01-16 00:00 | | 97.9 | F | | | temperature_standar | | | | | d | | | + + + +---------+ | 2025-01-16 00:00 | weight_metric | 97.001 | kg | + + + +---------+ | 2025-01-16 00:00 | weight_standard | 213.850 | lb | + + + +---------+ | 2025-01-30 00:00 | BMI | 30.7 | kg/m2 | + + + +---------+ | 2025-01-30 00:00 | BP_diastolic | 62 | mmHg | + + + +---------+ | 2025-01-30 00:00 | BP_systolic | 108 | mmHg | + + + +---------+ | 2025-01-30 00:00 | heart_rate | 81 | /min | + + + +---------+ | 2025-01-30 00:00 | height_metric | 177.8 | cm | + + + +---------+ | 2025-01-30 00:00 | height_standard | 70 | in | + + + +---------+ | 2025-01-30 00:00 | o2_saturation | 96 | % | + + + +---------+ | 2025-01-30 00:00 | respiration_rate | 16 | /min | + + + +---------+ | 2025-01-30 00:00 | | 98.2 | F | | | temperature_standar | | | | | d | | | + + + +---------+ | 2025-01-30 00:00 | weight_metric | 97.001 | kg | + + + +---------+ | 2025-01-30 00:00 | weight_standard | 213.850 | lb | + + + +---------+ | 2025-01-31 00:00 | BMI | 32.7 | kg/m2 | + + + +---------+ | 2025-01-31 00:00 | BP_diastolic | 128 | mmHg | + + + +---------+ | 2025-01-31 00:00 | BP_systolic | 167 | mmHg | + + + +---------+ | 2025-01-31 00:00 | heart_rate | 84 | /min | + + + +---------+ | 2025-01-31 00:00 | height_metric | 177.8 | cm | + + + +---------+ | 2025-01-31 00:00 | height_standard | 70 | in | + + + +---------+ | 2025-01-31 00:00 | o2_saturation | 100 | % | + + + +---------+ | 2025-01-31 00:00 | respiration_rate | 17 | /min | + + + +---------+ | 2025-01-31 00:00 | | 97.8 | F | | | temperature_standar | | | | | d | | | + + + +---------+ | 2025-01-31 00:00 | weight_metric | 103.399 | kg | + + + +---------+ | 2025-01-31 00:00 | weight_standard | 227.956 | lb | + + + +---------+ | 2025-02-05 00:00 | BMI | 36.7 | kg/m2 | + + + +---------+ | 2025-02-05 00:00 | BP_diastolic | 77 | mmHg | + + + +---------+ | 2025-02-05 00:00 | BP_systolic | 131 | mmHg | + + + +---------+ | 2025-02-05 00:00 | heart_rate | 83 | /min | + + + +---------+ | 2025-02-05 00:00 | height_metric | 177.8 | cm | + + + +---------+ | 2025-02-05 00:00 | height_standard | 70 | in | + + + +---------+ | 2025-02-05 00:00 | o2_saturation | 98 | % | + + + +---------+ | 2025-02-05 00:00 | respiration_rate | 15 | /min | + + + +---------+ | 2025-02-05 00:00 | | 98.2 | F | | | temperature_standar | | | | | d | | | + + + +---------+ | 2025-02-05 00:00 | weight_metric | 116.001 | kg | + + + +---------+ | 2025-02-05 00:00 | weight_standard | 255.737 | lb | + + + +---------+ | 2025-02-08 00:00 | BMI | 35.2 | kg/m2 | + + + +---------+ | 2025-02-08 00:00 | BP_diastolic | 61 | mmHg | + + + +---------+ | 2025-02-08 00:00 | BP_systolic | 90 | mmHg | + + + +---------+ | 2025-02-08 00:00 | heart_rate | 72 | /min | + + + +---------+ | 2025-02-08 00:00 | height_metric | 177.8 | cm | + + + +---------+ | 2025-02-08 00:00 | height_standard | 70 | in | + + + +---------+ | 2025-02-08 00:00 | o2_saturation | 97 | % | + + + +---------+ | 2025-02-08 00:00 | respiration_rate | 19 | /min | + + + +---------+ | 2025-02-08 00:00 | | 97 | F | | | temperature_standar | | | | | d | | | + + + +---------+ | 2025-02-08 00:00 | weight_metric | 111.201 | kg | + + + +---------+ | 2025-02-08 00:00 | weight_standard | 245.156 | lb | + + + +---------+ | 2025-02-12 00:00 | BMI | 35.2 | kg/m2 | + + + +---------+ | 2025-02-12 00:00 | BP_diastolic | 57 | mmHg | + + + +---------+ | 2025-02-12 00:00 | BP_systolic | 89 | mmHg | + + + +---------+ | 2025-02-12 00:00 | heart_rate | 74 | /min | + + + +---------+ | 2025-02-12 00:00 | height_metric | 177.8 | cm | + + + +---------+ | 2025-02-12 00:00 | height_standard | 70 | in | + + + +---------+ | 2025-02-12 00:00 | o2_saturation | 94 | % | + + + +---------+ | 2025-02-12 00:00 | respiration_rate | 14 | /min | + + + +---------+ | 2025-02-12 00:00 | | 98.4 | F | | | temperature_standar | | | | | d | | | + + + +---------+ | 2025-02-12 00:00 | weight_metric | 111.201 | kg | + + + +---------+ | 2025-02-12 00:00 | weight_standard | 245.156 | lb | + + + +---------+ | 2025-02-14 00:00 | BMI | 33.1 | kg/m2 | + + + +---------+ | 2025-02-14 00:00 | BP_diastolic | 59 | mmHg | + + + +---------+ | 2025-02-14 00:00 | BP_systolic | 119 | mmHg | + + + +---------+ | 2025-02-14 00:00 | heart_rate | 81 | /min | + + + +---------+ | 2025-02-14 00:00 | height_metric | 177.8 | cm | + + + +---------+ | 2025-02-14 00:00 | height_standard | 70 | in | + + + +---------+ | 2025-02-14 00:00 | o2_saturation | 96 | % | + + + +---------+ | 2025-02-14 00:00 | respiration_rate | 24 | /min | + + + +---------+ | 2025-02-14 00:00 | | 97.8 | F | | | temperature_standar | | | | | d | | | + + + +---------+ | 2025-02-14 00:00 | weight_metric | 104.499 | kg | + + + +---------+ | 2025-02-14 00:00 | weight_standard | 230.381 | lb | + + + +---------+"
--- OUTSIDE RECORDS SUMMARY | 2025-03-02 19:01 | XMS ---
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 Events No recent Security Events currently on file CRITERIA MET - 6 ED Visits in 6 Months - Group Notification - [facility] - 2 Visits in 30 Days CARE PROVIDERS BELEN COBIAN Roller Mill Operator/Measurement Specialist 10/12/2022-Current PHONE: [phone] Myra Jacobson Roller Mill Operator/Measurement Specialist 01/26/2022-Current PHONE: [phone] -, [facility]: Media Monitor Current Ld PHONE: [phone] GERARD JOYCE Nurse Practitioner: Family Current PHONE: [phone] ELA WEISS [employer] PHONE: [phone] KARRI MONREAL Internal Medicine Current PHONE: Unknown LUIZ MCDONALD Roller Mill Operator/Measurement Specialist Current PHONE: [phone] YUVAL DE LA CRUZ Nurse Practitioner: Family Current PHONE: [phone] DANA KIRK Internal Medicine Current PHONE: [phone] GERRY GOLDBERG I. Physician Boiler Room Helper Current PHONE: Unknown Margie Sethi Nurse Practitioner: Family Current PHONE: [phone] YUE SHIRLEY Nurse Practitioner Current PHONE: Unknown BECKY JENSEN Nurse Practitioner Current PHONE: [phone] [facility] Current PHONE: Unknown CASSIE BARRIGA Internal Medicine Current PHONE: Unknown DEBRA CLARK Family [facility] Current PHONE: Unknown QUE GARCIA Nurse Practitioner: Family Current PHONE: Unknown Cheko has no Care Guidelines for this patient. Sheila VISIT COUNT (12 MO.) [address] [facility] [address] TOTAL 22 NOTE: Visits indicate total known visits. ED/UCC VISIT TRACKING (12 MO.) 03/02/2025 18:54 [facility] [place] TYPE: Emergency COMPLAINT: - EDEMA 02/25/2025 14:40 [facility] [place] TYPE: Emergency COMPLAINT: - WOUND CARE 02/14/2025 05:[address] [facility] [place] TYPE: Emergency COMPLAINT: - FOOT PAIN DIAGNOSES: - Allergy status to other drugs, medicaments and biological substances - Heart failure, unspecified - Hypertensive heart disease with heart failure - Localized edema - Localized swelling, mass and lump, lower limb, bilateral - Other assisted (current) drug therapy - Personal history of transient ischemic attack (TIA), and cerebral infarction without residual deficits - Pure hypercholesterolemia, unspecified - Unspecified atrial fibrillation 02/12/2025 01:56 [facility] [place] TYPE: Emergency COMPLAINT: - LEG PAIN DIAGNOSES: - Allergy status to other drugs, medicaments and biological substances - Cramp and spasm - Heart failure, unspecified - Hypertensive heart disease with heart failure - Pain in right thigh - Unspecified atrial fibrillation 02/08/2025 09:[address] [facility] [place] TYPE: Emergency COMPLAINT: - LEG SWELLING DIAGNOSES: - Allergy status to other drugs, medicaments and biological substances - Heart failure, unspecified - Hypertensive heart disease with heart failure - Localized edema - Other superintendent container terminal (current) drug therapy - Personal history of transient ischemic attack (TIA), and cerebral infarction without residual deficits - Pure hypercholesterolemia, unspecified - Unspecified atrial fibrillation 02/05/2025 11:27 [facility] [place] TYPE: Emergency COMPLAINT: - LEG PAIN DIAGNOSES: - Allergy status to other drugs, medicaments and biological substances - Heart failure, unspecified - Hypertensive heart disease with heart failure - Localized edema - Other assisted (current) drug therapy - Other specified soft tissue disorders - Pure hypercholesterolemia, unspecified - Unspecified atrial fibrillation 01/31/2025 00:03 [facility] [place] TYPE: Emergency COMPLAINT: - COLD SYMPTOMS DIAGNOSES: - Allergy status to other drugs, medicaments and biological substances - Anxiety disorder, unspecified - Cough, unspecified - Heart failure, unspecified - Hypertensive heart disease with heart failure - Other superintendent container terminal (current) drug therapy - Personal history of transient ischemic attack (TIA), and cerebral infarction without residual deficits - Pure hypercholesterolemia, unspecified - Unspecified atrial fibrillation 01/30/2025 02:35 [facility] [place] TYPE: Emergency COMPLAINT: - SOB DIAGNOSES: - Allergy status to other drugs, medicaments and biological substances - Heart failure, unspecified - Hypertensive heart disease with heart failure - Other superintendent container terminal (current) drug therapy - Personal history of [...] heart disease with heart failure - Other superintendent container terminal (current) drug therapy - Unspecified atrial fibrillation 01/10/2025 05:48 [facility] [place] TYPE: Emergency COMPLAINT: - SHORTNESS OF BREATH DIAGNOSES: - Allergy status to other drugs, medicaments and biological substances - Heart failure, unspecified - Hypertensive heart disease with heart failure - Nutritional anemia, unspecified - Other assisted (current) drug therapy - Personal history of [...] heart disease with heart failure - Other superintendent container terminal (current) drug therapy - Other viral agents as the cause of diseases classified elsewhere - Pure hypercholesterolemia, unspecified - Unspecified atrial fibrillation 01/09/2025 11:04 [facility] [place] TYPE: Emergency COMPLAINT: - CHEST PAIN DIAGNOSES: - Allergy status to other drugs, medicaments and biological substances - Atherosclerotic heart disease of curyung coronary artery without angina pectoris - Chest pain, unspecified - Heart failure, unspecified - Hypertensive heart disease with heart failure - Other superintendent container terminal (current) drug therapy - Presence of prosthetic heart valve - Pure hypercholesterolemia, unspecified - Unspecified atrial fibrillation 01/02/2025 14:35 [facility] [place] TYPE: Emergency COMPLAINT: - CHEST PAIN DIAGNOSES: - Allergy status to other drugs, medicaments and biological substances - Heart failure, unspecified - Hypertensive heart disease with heart failure - Other assisted (current) drug therapy - Pain in throat - Pure hypercholesterolemia, unspecified - Unspecified atrial fibrillation 12/14/2024 11:19 [facility] [place] TYPE: Emergency COMPLAINT: - SHORTNESS OF BREATH DIAGNOSES: - Allergy status to other drugs, medicaments and biological substances - Heart failure, unspecified - Hypertensive heart disease with heart failure - Other superintendent container terminal (current) drug therapy - Shortness of breath 12/09/2024 03:45 [facility] [place] TYPE: Emergency COMPLAINT: - VOMITING DIAGNOSES: - Allergy status to other drugs, medicaments and biological substances - Essential (primary) hypertension - Nausea with vomiting, unspecified - Noninfective gastroenteritis and colitis, unspecified - Other superintendent container terminal (current) drug therapy - Personal history of transient ischemic attack (TIA), and cerebral infarction without residual deficits - Pneumonia, unspecified organism - Pure hypercholesterolemia, unspecified 09/25/2024 19:20 [facility] [place] TYPE: Emergency COMPLAINT: - ANXIETY DIAGNOSES: - Allergy status to other drugs, medicaments and biological substances - Anxiety disorder, unspecified - Essential (primary) hypertension - Other assisted (current) drug therapy - Personal history of [...] heart disease with heart failure - Other assisted (current) drug therapy - Shortness of breath 08/10/2024 05:08 [facility] [place] TYPE: Emergency COMPLAINT: - SHORTNESS OF BREATH DIAGNOSES: - Allergy status to other drugs, medicaments and biological substances - Cough, unspecified - Heart failure, unspecified - Hypertensive heart disease with heart failure - Other assisted (current) drug therapy - Other specified chronic obstructive pulmonary disease - Unspecified atrial fibrillation 05/22/2024 16:59 [facility] [place] TYPE: Emergency COMPLAINT: - CONFUSION DIAGNOSES: - Disorientation, unspecified - Heart failure, unspecified - Hypertensive heart disease with heart failure - Other assisted (current) drug therapy - Unspecified atrial fibrillation Plus 2 More Visits INPATIENT VISIT TRACKING (12 MO.) No inpatient visits to display in this time frame [email or web address]
[2025-03-02 19:40] LABS: BASOPHILS 0.8 % (0.2-1.2); EOSINOPHILS 2.6 % (0.8-7.0); LYMPHOCYTES 17.3 % (21.8-53.1); MCH 31.0 PG (25.7-32.2); MCHC 32.1 g/dL (32.3-36.5); MCV 96.7 fL (79.0-92.2); MONOCYTES 16.5 % (5.3-12.2); NEUTROPHILS 62.5 % (34.0-67.9); RBC 3.35 M/uL (4.63-6.08)
[2025-03-02 19:56] LABS: ALT (SGPT) 26.0 U/L (14-59); AST (SGOT) 50.0 U/L (15-37); GLOMERULAR FILTRATION RATE,EST 55.0 mL/min (>60); PROTEIN, TOTAL 6.1 g/dL (6.4-8.2); UREA NITROGEN 32.0 mg/dL (7-18)
[2025-03-02 21:06] VITALS: BP 93/58
== END 2025-03-02 21:00 | disposition home or self-care (01) ==
LOC: ED 18:54
PROVIDERS: Family Medicine
DX: R60.0 Localized edema (principal); I11.0 Hypertensive heart disease with heart failure; I50.9 Heart failure, unspecified; I48.91 Unspecified atrial fibrillation; E78.00 Pure hypercholesterolemia, unspecified; Z86.73 Personal history of transient ischemic attack (TIA), and cerebral infarction without residual deficits; Z88.8 Allergy status to other drugs, medicaments and biological substances; Z79.899 Other long term (current) drug therapy
CPT/HCPCS: 36415; 80053; 85025; 99283

== ENCOUNTER 2025-03-07 15:24 | Emergency (ER) | payer MEDICARE, OTHER ==
[~2025-03-07] VITALS: Ht 177.8 cm; Wt 105.0 kg
--- OUTSIDE RECORDS SUMMARY | ~2025-03-07 | XMS | Continuity of Care Document ---
Demographics + + + | Address | [address] | | | [place] [address] | + + + | Preferred Language | Unknown | + + + | Marital Status | | + + + | Yazdanism Affiliation | Unknown | + + + | Race | White | + + + | Ethnic Group | Not or | + + + Author + + + | Author | [facility] | + + + | Organization | [facility] | + + + | Address | [address] | | | [place] [address] | + + + | Phone | | + + + Care Team Providers + + + + | Care Installer Molding And Trim Name | Role | Phone | + [...] | (no date) | DOXEPIN HCL | [facility] [place] [place] [facility] [place] | | | | [facility] | + + + + | (no date) | ONDANSETRON | [facility] | | | | [facility] | + + + + | (no date) | OXYCODONE HCL | [facility] [place] [place] [facility] [place] | | | | [facility] | + + + + | (no date) | RIVAROXABAN | [facility] [place] [place] [facility] | | | | [facility] | + + + + | (no date) | DOCUSATE SODIUM | [facility] | | | | [facility] | + + + + | (no date) | Ergocalciferol (Vitamin | [facility] | | | D2) | [facility] | + + + + | (no date) | QUETIAPINE FUMARATE | [facility] | | | | [facility] | + + + + | (no date) | Naloxone HCl | [facility] | | | | [facility] | + + + + | (no date) | LITHIUM CARBONATE | [facility] | | | | [facility] | + + + + | (no date) | LORAZEPAM | [facility] [place] [place] [facility] [place] | | | | [facility] | + + + + | (no date) | LAMOTRIGINE | [facility] [place] [place] [facility] [place] | | | | [facility] | + + + + | (no date) | ACETAMINOPHEN | [facility] [place] [place] [facility] [place] | | | | [facility] | + + + + | 2025-01-09 00:00 | ACETAMINOPHEN | [facility] [place] [place] [facility] [place] | | | | [facility] | + + + + | 2024-12-09 00:00 | FUROSEMIDE | [facility] [place] [place] [facility] [place] | | | | [facility] | + + + + | 2025-01-10 00:00 | FUROSEMIDE | [facility] | | | | [facility] | + + + + | 2025-01-30 00:00 | FUROSEMIDE | [facility] [place] | | | | [facility] | + + + + | 2025-02-08 00:00 | FUROSEMIDE | [facility] [place] [place] [facility] [place] | | | | [facility] | + + + + | (no date) | ALPRAZOLAM | [facility] [place] [place] [facility] [place] | | | | [facility] | + + + + | (no date) | FLUOXETINE HCL | [facility] | | | | [facility] | + + + + | (no date) | FUROSEMIDE | [facility] [place] [place] [facility] | | | | [facility] | + + + + | 2024-12-09 00:00 | ONDANSETRON | [facility] | | | | [facility] | + + + + | (no date) | PRAZOSIN HCL | [facility] [place] [place] [facility] [place] | | | | [facility] | + + + + | (no date) | LATANOPROST | [facility] [place] [place] [facility] [place] | | | | [facility] | + + + + | (no date) | ESCITALOPRAM OXALATE | [facility] | | | | [facility] | + + + + | (no date) | ESCITALOPRAM OXALATE | [facility] | | | | [facility] | + + + + | (no date) | ATORVASTATIN CALCIUM | [facility] | | | | [facility] | + + + + | (no date) | ATORVASTATIN | [facility] [place] [place] [facility] [place] | | | | [facility] | + + + + | (no date) | FERROUS SULFATE | [facility] [place] [place] [facility] [place] | | | | [facility] | + + + + | (no date) | DILTIAZEM HCL | [facility] | | | | [facility] | + + + + | (no date) | DILTIAZEM HCL | [facility] | | | | [facility] | + + + + | (no date) | TRAZODONE HCL | [facility] [place] [place] [facility] [place] | | | | [facility] | + + + + | (no date) | HYDROCODONE | [facility] [place] [place] [facility] [place] | | | BIT/ACETAMINOPHEN | [facility] | + + + + | (no date) | HYDROCODONE/APAP | [facility] [place] [place] | | | (10-325MG) | [facility] | + + + + | (no date) | ALBUTEROL SULFATE | [facility] | | | | [facility] | + + + + | (no date) | TAMSULOSIN HCL | [facility] [place] [place] [facility] [place] | | | | [facility] | + + + + | (no date) | BUSPIRONE HCL | [facility] [place] | | | | [facility] | + + + + | (no date) | BUSPIRONE HCL | [facility] [place] | | | | [facility] | + + + + | 2024-12-09 00:00 | METOPROLOL SUCCINATE | [facility] | | | | [facility] | + + + + | (no date) | POLYETHYLENE GLYCOL 3350 | [facility] | | | | [facility] | + + + + | (no date) | POLYETHYLENE GLYCOL 3350 | [facility] [place] | | | | [facility] | + + + + | (no date) | HYDROMORPHONE HCL | [facility] [place] | | | | [facility] | + + + + | (no date) | LOSARTAN POTASSIUM | [facility] [place] | | | | [facility] | + + + + | (no date) | BUPROPION HCL | [facility] [place] | | | | [facility] | + + + + | (no date) | hydrOXYzine HCL | [facility] [place] | | | | [facility] | + + + + Problems + + + + | date | description | facility | + + + + | 2024-12-09 00:00 | Pneumonia | [facility] [place] | | | | [facility] | + + + + | 2024-12-09 00:00 | Gastroenteritis | [facility] | | | | [facility] | + + + + | 2024-12-14 00:00 | Dyspnea | [facility] | | | | [facility] | + + + + | 2025-01-02 00:00 | Throat pain | [facility] | | | | [facility] | + + + + | 2025-01-09 00:00 | Viral pharyngitis | [facility] [place] | | | | [facility] | + + + + | 2025-01-09 00:00 | Chest pain | [facility] [place] | | | | [facility] | + + + + | 2025-01-10 00:00 | 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 | [facility] | + + + + | 2025-01-30 00:00 | Acute on chronic | [facility] | | | congestive heart failure | [facility] | + + + + | 2025-02-05 00:00 | Peripheral edema | [facility] [place] | | | | [facility] | + + + + | 2025-02-08 00:00 | Edema | [facility] [place] | | | | [facility] | + + + + | 2025-02-12 00:00 | Cramps of lower extremity | [facility] [place] | | | | [facility] | + + + + | 2025-02-14 00:00 | Edema of lower extremity | [facility] [place] | | | | [facility] | + + + + Procedures No information. Results/Labs +--------+--------+ +---------+--------+---------+ | test | date | facility | value | unit | notes | +--------+--------+ +---------+--------+---------+ + + | Result panel 1 | + + + + + +------+ + + | Neuts Seg | 2024-12-14 | | 71 | (missing) | (missing) | | NFr Bld | : | [facility] | | | | | Manual | [...] (missing) | (missing) | | Bld-mCnc | 11:28:07 | [facility] | | | [...] | (missing) | (missing) | | | 11::07 | [facility] | | | [...] | (missing) | | NFr Bld | 11::07 | [facility] | | | [...] | (missing) | (missing) | | | ::07 | [facility] | | | [...] 29 | mg/dL | (missing) | | Ousmane [...] 1.32 | mg/dL | (missing) | | [facility] | 11:28:07 | [facility] | | | [...] 2.1 | mg/dL | (missing) | | [facility] | 11:28:07 | [facility] | | | [...] (missing) | (missing) | | SerPl-mCnc | 11::07 | [facility] | | | [...] (missing) | (missing) | | SerPl | 11::07 | [facility] | | | [...] (missing) | (missing) | | SARS-CoV+LAVELLE | : | [facility] | | | [...] | | comment Imp | 03:09:07 | [facility] | | | | [...] 99 | (missing) | (missing) | | SerPl-cCn | 03:15:07 | [facility] | | | [...] 99 | mg/dL | (missing) | | [facility] | 03:15:07 | [facility] | | | [...] 33 | mg/dL | (missing) | | SerPl-mCcaridad | 03:15:07 | [facility] | | | [...] 1.33 | mg/dL | (missing) | | [facility] | 03:15:07 | [facility] | | | [...] 6.0 | (missing) | (missing) | | [facility] | 03:15:07 | [facility] | | | [...] 101 | mg/dL | (missing) | | [facility] | 12:00:07 | [facility] | | | [...] 1.26 | mg/dL | (missing) | | [facility] | 12:00:07 | [facility] | | | [...] (missing) | (missing) | | SerPl-cCnc | 12::07 | [facility] | | | | | [...] 97 | (missing) | (missing) | | [facility] | 12:00:07 | [facility] | | | [...] | | Bld Auto | 12:00:07 | [facility] | | | | | | | [...] | (missing) | | | 12:00:07 | [facility] | | | | [...] 1.40 | mg/dL | (missing) | | SerPl-mCnc [...] 9.1 | mg/dL | (missing) | | [facility] [...] 2.2 | mg/dL | (missing) | | SerPl-mCnc [...] 6.3 | (missing) | (missing) | | SerPl-mCnc | 06:16:07 [...] 3.6 | (missing) | (missing) | | Ser-mCnc | 06:16:07 | [facility] | | | [...] 57 | (missing) | (missing) | | SerPgal-[facility] | 06:16:07 | [facility] | | | [...] 99 | (missing) | (missing) | | SerPl-[facility] | 06:16:07 | [facility] | | [...]
--- OUTSIDE RECORDS SUMMARY | 2025-03-07 15:32 | XMS ---
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 Events No recent Security Events currently on file CRITERIA MET - 6 ED Visits in 6 Months - Group Notification - [facility] - 2 Visits in 30 Days CARE PROVIDERS BELEN COBIAN Business Support Specialist/Rigging Up Man 10/12/2022-Current PHONE: [phone] Myra Jacobson Business Support Specialist/Rigging Up Man 01/26/2022-Current PHONE: [phone] -, [facility] Dentist: State Fire Marshal Current Ld PHONE: [phone] GERARD JOYCE Nurse Practitioner: Family Current PHONE: [phone] ELA WEISS [facility] [employer] Shearershira Tarango PHONE: [phone] KARRI MONREAL Internal Medicine Current PHONE: Unknown LUIZ MCDONALD Business Support Specialist/Rigging Up Man Current PHONE: [phone] YUVAL DE LA CRUZ Nurse Practitioner: Family Current PHONE: [phone] DANA KIRK Internal Medicine Current PHONE: [phone] GERRY GOLDBERG I. Physician Project Facilitator Current PHONE: Unknown Margie Sethi Nurse Practitioner: Family Current PHONE: [phone] YUE SHIRLEY Nurse Practitioner Current PHONE: Unknown BECKY JENSEN Nurse Practitioner Current PHONE: [phone] [facility] Current PHONE: Unknown CASSIE BARRIGA Internal Medicine Current PHONE: Unknown DEBRA CLARK Family [facility] Current PHONE: Unknown QUE GARCIA Nurse Practitioner: Family Current PHONE: Unknown Cheko has no Care Guidelines for this patient. Sheila VISIT COUNT (12 MO.) 23 [facility] TOTAL 23 NOTE: Visits indicate total known visits. ED/UCC VISIT TRACKING (12 MO.) 03/07/2025 15:[address] [facility] [place] TYPE: Emergency COMPLAINT: - HIGH BLOOD PREASRE 03/02/2025 18:[address] [facility] [place] TYPE: Emergency COMPLAINT: - EDEMA DIAGNOSES: - Allergy status to other drugs, medicaments and biological substances - Heart failure, unspecified - Hypertensive heart disease with heart failure - Localized edema - Localized swelling, mass and lump, lower limb, bilateral - Other fpc (current) drug therapy - Personal history of transient ischemic attack (TIA), and cerebral infarction without residual deficits - Pure hypercholesterolemia, unspecified - Unspecified atrial fibrillation 02/25/2025 14:40 [facility] [place] TYPE: Emergency COMPLAINT: - WOUND CARE 02/14/2025 05:57 [facility] [place] TYPE: Emergency COMPLAINT: - FOOT PAIN DIAGNOSES: - Allergy status to other drugs, medicaments and biological substances - Heart failure, unspecified - Hypertensive heart disease with heart failure - Localized edema - Localized swelling, mass and lump, lower limb, bilateral - Other supervisor intermediates (current) drug therapy - Personal history of [...] heart failure - Localized edema - Other supervisor intermediates (current) drug therapy - Personal history of transient ischemic attack (TIA), and cerebral infarction without residual deficits - Pure hypercholesterolemia, unspecified - Unspecified atrial fibrillation 02/05/2025 11:27 [facility] [place] TYPE: Emergency COMPLAINT: - LEG PAIN DIAGNOSES: - Allergy status to other drugs, medicaments and biological substances - Heart failure, unspecified - Hypertensive heart disease with heart failure - Localized edema - Other supervisor intermediates (current) drug therapy - Other specified soft tissue disorders - Pure hypercholesterolemia, unspecified - Unspecified atrial fibrillation 01/31/2025 00:03 [facility] [place] TYPE: Emergency COMPLAINT: - COLD SYMPTOMS DIAGNOSES: - Allergy status to other drugs, medicaments and biological substances - Anxiety disorder, unspecified - Cough, unspecified - Heart failure, unspecified - Hypertensive heart disease with heart failure - Other supervisor intermediates (current) drug therapy - Personal history of transient ischemic attack (TIA), and cerebral infarction without residual deficits - Pure hypercholesterolemia, unspecified - Unspecified atrial fibrillation 01/30/2025 02:35 [facility] [place] TYPE: Emergency COMPLAINT: - SOB DIAGNOSES: - Allergy status to other drugs, medicaments and biological substances - Heart failure, unspecified - Hypertensive heart disease with heart failure - Other supervisor intermediates (current) drug therapy - Personal history of [...] - Other fpc (current) drug therapy - Unspecified atrial fibrillation 01/10/2025 05:48 [facility] [place] TYPE: Emergency COMPLAINT: - SHORTNESS OF BREATH DIAGNOSES: - Allergy status to other drugs, medicaments and biological substances - Heart failure, unspecified - Hypertensive heart disease with heart failure - Nutritional anemia, unspecified - Other fpc (current) drug therapy [...] heart disease with heart failure - Other supervisor intermediates (current) drug therapy - Other viral agents as the cause of diseases classified elsewhere - Pure hypercholesterolemia, unspecified - Unspecified atrial fibrillation 01/09/2025 11:04 [facility] [place] TYPE: Emergency COMPLAINT: - CHEST PAIN DIAGNOSES: - Allergy status to other drugs, medicaments and biological substances - Atherosclerotic heart disease of [place] coronary artery without angina pectoris - Chest pain, unspecified - Heart failure, unspecified - Hypertensive heart disease with heart failure - Other fpc (current) drug therapy - Presence of prosthetic heart valve - Pure hypercholesterolemia, unspecified - Unspecified atrial fibrillation 01/02/2025 14:35 [facility] [place] [facility] COMPLAINT: - CHEST PAIN DIAGNOSES: - Allergy status to other drugs, medicaments and biological substances - Heart failure, unspecified - Hypertensive heart disease with heart failure - Other supervisor intermediates (current) drug therapy - Pain in throat [...] heart disease with heart failure - Other supervisor intermediates (current) drug therapy - Shortness of breath 08/10/2024 05:08 [facility] [place] TYPE: Emergency COMPLAINT: - SHORTNESS OF BREATH DIAGNOSES: - Allergy status to other drugs, medicaments and biological substances - Cough, unspecified - Heart failure, unspecified - Hypertensive heart disease with heart failure - Other fpc (current) drug therapy - Other specified chronic obstructive pulmonary disease - Unspecified atrial fibrillation Plus 3 More Visits INPATIENT VISIT TRACKING (12 MO.) No inpatient visits to display in this time frame [id number]
[2025-03-07] MEDS ORDERED: ACETAMINOPHEN 500 MG TAB PO ONE (16:00)
[2025-03-07 16:32] LABS: BASOPHILS 0.8 % (0.2-1.2); EOSINOPHILS 1.4 % (0.8-7.0); LYMPHOCYTES 13.7 % (21.8-53.1); MCH 30.5 PG (25.7-32.2); MCHC 32.7 g/dL (32.3-36.5); MCV 93.5 fL (79.0-92.2); MONOCYTES 13.3 % (5.3-12.2); NEUTROPHILS 70.5 % (34.0-67.9); RBC 3.70 M/uL (4.63-6.08)
[2025-03-07 16:55] LABS: ALT (SGPT) 28.0 U/L (14-59); AST (SGOT) 56.0 U/L (15-37); GLOMERULAR FILTRATION RATE,EST 54.0 mL/min (>60); PROTEIN, TOTAL 6.6 g/dL (6.4-8.2); UREA NITROGEN 29.0 mg/dL (7-18)
[2025-03-07] MEDS ORDERED: HYDROmorphone HCL 1 MG/ML SYR IV PRN (17:30)
[2025-03-07] MEDS ORDERED: SODIUM CHLORIDE 0.9% 500 ML IV PRN (17:30)
[2025-03-07 18:57] LABS: LACTIC ACID, BLOOD 0.9 mmol/L (0.4-2.0)
[2025-03-07] MEDS ORDERED: HYDROCODON-ACE1 EA10 PO (19:47)
[2025-03-07 20:00] LABS: BLOOD/HGB, URINE MODERATE (Negative); KETONE, URINE NEGATIVE (Negative); LEUK ESTERASE, URINE NEGATIVE (negative); NITRITE, URINE NEGATIVE (negative)
[2025-03-07 20:08] LABS: BACTERIA, URINE RARE /hpf (negative); CRYSTALS, URINE NONE SEEN (0-1+); EPITHELIAL CELLS, URINE SQUAMOUS 1+ /lpf (0-1+)
[2025-03-07 20:09] LABS: CASTS, URINE HYALINE 1+ \\lpf; REFLEX CULTURE, URINE No (No)
[2025-03-07 20:15] VITALS: BP 95/62
[2025-03-07] MEDS ORDERED: HYDROCODONE BIT/ACETAMINOPHEN 5/325 MG 1 TAB HOME.PACK PO ONE (20:15)
--- NOTE | 2025-03-08 09:25 | EKG ---
[facility] [address], [place] [address] Signed Atrial fibrillation with rapid ventricular response Nonspecific ST and T wave abnormality Abnormal ECG When compared with ECG of 30-JAN-2025 02:38, Nonspecific T wave abnormality, worse in Lateral leads Confirmed by Lori Ureña DO ([id number]) on 03/08/2025 9:25:13 AM Electronically Signed By: LORI UERÑA DO 03/08/25924 PATIENT NAME: MOSHE ROBERTS Electrocardiogram DATE OF : 41 PHYSICIAN: LORI UREÑA DO REPORT #: [id number] REPORT IS CONFIDENTIAL AND NOT TO BE RELEASED WITHOUT AUTHORIZATION
== END 2025-03-07 20:15 | disposition home or self-care (01) ==
LOC: ED 15:24
PROVIDERS: Emergency Medicine
DX: I48.91 Unspecified atrial fibrillation (principal); M79.605 Pain in left leg; M79.604 Pain in right leg; I11.0 Hypertensive heart disease with heart failure; I50.9 Heart failure, unspecified; Z88.8 Allergy status to other drugs, medicaments and biological substances; Z79.899 Other long term (current) drug therapy
CPT/HCPCS: 36415; 71045; 71260; 80053; 81001; 83605; 83880; 84484; 85025; 85379; 93005; 93010; 96365; 96375; 96376; 99285-25; A9270; J0696; J1171; J7040; Q9967

== ENCOUNTER 2025-05-03 17:26 | Emergency (ER) | payer MEDICARE, OTHER ==
[~2025-05-03] VITALS: Ht 177.8 cm; Wt 101.5 kg
--- OUTSIDE RECORDS SUMMARY | ~2025-05-03 | XMS | Continuity of Care Document ---
Demographics + + + | Address | [address] | | | [place] [address] | + + + | Preferred Language | Unknown | + + + | Marital Status | | + + + | Yarsanism Affiliation | Unknown | + + + | Race | White | + + + | Ethnic Group | Not or | + + + Author + + + | Author | [facility] | + + + | Organization | [facility] | + + + | Address | [address] | | | [place] [address] | + + + | Phone | | + + + Care Team Providers + + + + | Care Water Mechanic Name | Role | Phone | + [...] [place] | | | | [facility] | + + + + | (no date) | ONDANSETRON | [facility] [place] [facility] | | | | [facility] | + + + + | (no date) | OXYCODONE HCL | [facility] [place] [place] [facility] | | | | [facility] | + + + + | (no date) | RIVAROXABAN | [facility] | | | | [facility] | + + + + | (no date) | DOCUSATE SODIUM | [facility] | | | | [facility] | + + + + | (no date) | Ergocalciferol (Vitamin | [facility] | | | D2) | [facility] | + + + + | (no date) | QUETIAPINE FUMARATE | [facility] | | | | [facility] | + + + + | (no date) | Naloxone HCl | [facility] | | | | [facility] | + + + + | (no date) | LITHIUM CARBONATE | [facility] | | | | [facility] | + + + + | (no date) | LORAZEPAM | [facility] [place] | | | | [facility] | + + + + | (no date) | LAMOTRIGINE | [facility] [place] | | | | [facility] | + + + + | (no date) | ACETAMINOPHEN | [facility] [place] [place] [facility] | | | | [facility] | + + + + | 2025-02-08 00:00 | FUROSEMIDE | [facility] [place] | | | | [facility] | + + + + | (no date) | ALPRAZOLAM | [facility] | | | | [facility] | + + + + | (no date) | FLUOXETINE HCL | [facility] [place] [place] | | | | [facility] | + + + + | (no date) | FUROSEMIDE | [facility] | | | | [facility] | + + + + | (no date) | PRAZOSIN HCL | [facility] [place] [place] | | | | [facility] | + + + + | (no date) | LATANOPROST | [facility] [place] [place] | | | | [facility] | + + + + | (no date) | ESCITALOPRAM OXALATE | [facility] | | | | [facility] | + + + + | (no date) | ESCITALOPRAM OXALATE | [facility] [place] [place] [facility] | | | | [facility] | + + + + | (no date) | ATORVASTATIN CALCIUM | [facility] [place] [place] | | | | [facility] | + + + + | (no date) | ATORVASTATIN | [facility] [place] [place] [facility] | | | | [facility] | + + + + | (no date) | FERROUS SULFATE | [facility] | | | | [facility] | + + + + | (no date) | DILTIAZEM HCL | [facility] | | | | [facility] | + + + + | (no date) | DILTIAZEM HCL | [facility] [place] [place] | | | | [facility] | + + + + | (no date) | TRAZODONE HCL | [facility] | | | | [facility] | + + + + | (no date) | HYDROCODONE | [facility] [place] [place] [facility] | | | BIT/ACETAMINOPHEN | [facility] | + + + + | (no date) | HYDROCODONE/APAP | [facility] [place] [place] [facility] | | | (10-325MG) | [facility] | + + + + | 2025-03-07 00:00 | HYDROCODONE | [facility] | | | BIT/ACETAMINOPHEN | [facility] | + + + + | (no date) | ALBUTEROL SULFATE | [facility] | | | | [facility] | + + + + | (no date) | TAMSULOSIN HCL | [facility] | | | | [facility] | + + + + | (no date) | BUSPIRONE HCL | [facility] | | | | [facility] | + + + + | (no date) | BUSPIRONE HCL | [facility] | | | | [facility] | + + + + | (no date) | POLYETHYLENE GLYCOL 3350 | [facility] | | | | [facility] | + + + + | (no date) | POLYETHYLENE GLYCOL 3350 | [facility] | | | | [facility] | + + + + | (no date) | HYDROMORPHONE HCL | [facility] | | | | [facility] | + + + + | (no date) | LOSARTAN POTASSIUM | [facility] | | | | [facility] | + + + + | (no date) | BUPROPION HCL | [facility] | | | | [facility] | + + + + | (no date) | hydrOXYzine HCL | [facility] | | | | [facility] | + + + + Problems + + + + | date | description | facility | + + + + | 2025-02-05 00:00 | Peripheral edema | [facility] | | | | [facility] | + + + + | 2025-02-08 00:00 | Edema | [facility] | | | | [facility] | + + + + | 2025-02-12 00:00 | Cramps of lower extremity | [facility] | | | | [facility] | + + + + | 2025-02-14 00:00 | Edema of lower extremity | [facility] | | | | [facility] | + + + + | 2025-02-25 00:00 | Encounter for medical | [facility] | | | screening examination | [facility] | + + + + | 2025-03-07 00:00 | Atrial fibrillation | [facility] | | | | [facility] | + + + + | 2025-03-07 00:00 | Pain of lower extremity | [facility] | | | | [facility] | + + + + | 2025-03-12 00:00 | Encounter for wound | [facility] | | | re-check | [facility] | + + + + Procedures [...] 4 | + + + + + +--------+ [...] 5 | + + + + + +--------+ [...] 8 | + + + + + +-------+ [...] 9 | + + + + + +--------+ [...] + + + + | Result panel 10 [...] 12 | + + + + + +-------+ [...] 13 | + + + + + +-------+ [...] 14 | + + + + + +-------+---------+ [...] +-------+---------+ + + + | Result panel 15 | + + + + + +------+---------+ + | BUN | 2025-02-05 | | 27 | mg/dL | (missing) | | [facility] | 12:00:07 | [facility] | | | | + + + +------+---------+ + + + | Result panel 16 | + + + + + +--------+---------+ + | Creat | 2025-02-05 | | 1.26 | mg/dL | (missing) | | [facility] | 12:00:07 | [facility] | | | | | | | - | | | | | | | [facility] | | | | + + + +--------+---------+ + + + | Result panel 17 [...] 18 | + + + + + +---------+ [...] 19 | + + + + + +-------+ [...] 20 | + + + + + +-------+ [...] 22 | + + + + + +------+ [...] 24 | + + + + + +-------+---------+ [...] +-------+---------+ + + + | Result panel 25 | + + + + + +-------+ [...] 26 | + + + + + +-------+ [...] + + + + | Result panel 27 | + + + + + +-------+ [...] 28 | + + + + + +--------+ [...] 29 | + + + + + +-------+---------+ [...] +-------+---------+ + + + | Result panel 30 | + + + + + +------+ [...] 31 | + + + + + +------+ [...] 32 | + + + + + +------+ + + | ALP | 2025-02-05 | | 97 | (missing) | (missing) | | [facility] | 12:00:07 | [facility] | | | | + + + +------+ + + + + | Result panel 33 | + + + + + +-------+---------+ + | Magnesium | 2025-02-14 | | 2.2 | mg/dL | (missing) | | [facility] | 06:16:07 | [facility] | | | | + + + +-------+---------+ + + + | Result panel 34 [...] 36 | + + + + + +-------+ [...] 38 | + + + + + +------+---------+ + | Glucose | 2025-02-14 | | 95 | mg/dL | (missing) | | [facility] | 06:16:07 | [facility] | | | | + + + +------+---------+ + + + | Result panel 39 | + + + + + +------+---------+ + | BUN | 2025-02-14 | | 25 | mg/dL | (missing) | | [facility] | 06:16:07 | [facility] | | | | + + + +------+---------+ + + + | Result panel 40 | + + + + + +--------+---------+ [...] +--------+---------+ + + + | Result panel 41 | + + + + + +------+ [...] 42 | + + + + + +---------+ + + | KIMBERLY/Danette | 2025-02-14 | | 17.85 | (missing) | (missing) | | [facility] | 06:16:07 | [facility] | | | | + + + +---------+ + + + + | Result panel 43 | + + + + + +-------+ [...] 44 | + + + + + +-------+ + + | Potassium | 2025-02-14 | | 3.7 | (missing) | (missing) | | [facility] | 06:16:07 | [facility] | | | | | | | [...] 46 | + + + + + +------+ [...] 47 | + + + + + +-------+ [...] 48 | + + + + + +-------+---------+ + | Calcium | 2025-02-14 | | 9.1 | mg/dL | (missing) | | [facility] | 06:16:07 | [facility] | | | | + + + +-------+---------+ + + + | Result panel 49 | + + + + + +-------+---------+ + | Magnesium | 2025-02-14 | | 2.2 | mg/dL | (missing) | | [facility] [...] 6.3 | (missing) | (missing) | | [facility] [...] 2.7 | (missing) | (missing) | | [facility] | 06:16:07 | [facility] | | | | + + + +-------+ + + + + | Result panel 52 | + + + + + +-------+ [...] 53 | + + + + + +--------+ [...] 54 | + + + + + +-------+---------+ [...] +-------+---------+ + + + | Result panel 55 | + + + + + +------+ + + | AST | 2025-02-14 | | 57 | (missing) | (missing) | | [facility] | 06:16:07 | [facility] | | | [...] 57 | + + + + + +------+ + + | ALP | 2025-02-14 | | 99 | (missing) | (missing) | | [facility] [...] 59 | + + + + + +--------+ [...] + + + + | Result panel 60 | + + + + + +--------+ + + | Hgb | 2025-02-14 | | 10.6 | (missing) | (missing) | | [facility] | 06:16:07 | [facility] | | | | + + + +--------+ + + + + | Result panel 61 | + + + + + +--------+ [...] 62 | + + + + + +--------+ [...] 71 | + + + + + +-------+ [...] + + +--------+ + + | D Oziel PPP | 2025-03-07 | | 2.21 | (missing) | (missing) | | [facility] | 16:25:07 | [facility] | | | [...] 74 | + + + + + +--------+ [...] 75 | + + + + + +-------+---------+ [...] +-------+---------+ + + + | Result panel 76 [...] 77 | + + + + + +--------+---------+ [...] +--------+---------+ + + + | Result panel 78 | + + + + + +------+ [...] + + + + | Result panel 79 | + + + + + +--------+ + + | Hgb | 2025-03-07 | | 11.3 | (missing) | (missing) | | Bld-m[facility]nc | 16::07 | [facility] | | | [...] 83 | + + + + + +------+ [...] 2.6 | (missing) | (missing) | | SerPl-m[facility]nc | 16:25:07 | [facility] | | | | + + + +-------+ + + + + | Result panel 89 | + + + + + +-------+ + + | Globulin | 2025-03-07 | | 4.0 | (missing) | (missing) | | Ser-caridad | 16:25:07 | [facility] | | | [...] | (missing) | | Bld Auto | 16:: | [facility] | | | | | [...] 92 | + + + + + +-------+---------+ [...] +-------+---------+ + + + | Result panel 93 | + + + + + +------+ [...] 94 | + + + + + +------+ + + | ALT | 2025-03-07 | | 28 | (missing) | (missing) | | [facility] | 16:25:07 | [facility] | | | | + + + +------+ + + + + | Result panel 95 | + + + + + +-------+ + + | ALP | 2025-03-07 | | 140 | (missing) | (missing) | | [facility] | 16:25:07 | [facility] | | | | + + + +-------+ + + + + | Result panel 96 | + + + + + +--------+ [...] + + + + | Result panel 97 | + + + + + +--------+ [...] 98 | + + + + + +--------+ [...] 99 | + + + + + +--------+ + + | MCHC RBC | 2025-03-07 | | 32.7 | (missing) | (missing) | | Auto-Ent[facility] | 16:25:07 | [facility] | | | | + + + +--------+ + + + + | Result panel 100 | + + + + + +-------+ [...] 101 | + + + + + + [...] 102 | + + + + + + [...] 103 | + + + + + +-------+ + + | Lactate | 2025-03-07 | | 0.9 | (missing) | (missing) | | SerPl-s[facility]n | 18:34:07 | [facility] | | | | + + + +-------+ + + + + | Result panel 104 | + + + + + + [...] 105 | + + + + + +---------+ [...] + + + + | Result panel 106 | + + + + + + [...] 107 | + + + + + + + + + | Bilirub Ur | 2025-03-07 | | NEGATIVE | [...] 108 | + + + + + + + + + | Ketones Ur | 2025-03-07 | | NEGATIVE | (missing) | (missing) | | Ql Strip | 19:53:07 | [facility] | | | | + + + + + + + + + | Result panel 109 | + + + + + +---------+ [...] 110 | + + + + + + [...] + + + + | Result panel 111 | + + + + + +-------+ [...] 112 | + + + + + + + + + | Prot Ur | 2025-03-07 | | NEGATIVE | (missing) | (missing) | | [facility] | 19:53:07 | [facility] | | | | + + + + + + + + + | Result panel 113 | + + + + + + [...] 114 | + + + + + + [...] 115 | + + + + + + [...] 116 | + + + + + +-------+ + + | RBC #/area | 2025-03-07 | | 4-6 | (missing) | (missing) | | [facility] | 19:53:07 | [facility] | | | | + + + +-------+ + + + + | Result panel 117 | + + + + + +-------+ + + | WBC #/area | 2025-03-07 | | 2-3 | (missing) | (missing) | | [facility] | 19:53:07 | [facility] | | | | + + + +-------+ + + + + | Result panel 118 | + + + + + + [...] 119 | + + + + + + [...] 121 | + + + + + + [...] 122 | + + + + + +------+ [...] 123 | + + + + + + [...] units | + + + +---------+ | 2025-02-05 [...] 230.381 | lb | + + + +---------+ | 2025-02-25 [...] 217.375 | lb | + + + +---------+"
--- OUTSIDE RECORDS SUMMARY | 2025-05-03 17:33 | XMS ---
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 No recent Security Events currently on file CRITERIA MET - 6 ED Visits in 6 Months - Group Notification CARE PROVIDERS BELEN COBIAN Cost Analyst/Emt I/85 10/12/2022-Current PHONE: [phone] Myra Jacobson Cost Analyst/Emt I/85 01/26/2022-Current PHONE: [phone] -, [facility]ist: Order Entry Clerk Serena Jaffe PHONE: [phone] GERARD JOYCE Nurse Practitioner: Family Current PHONE: [phone] ELA WEISS Chin Strap Sewershira Tarango PHONE: [phone] [facility]: Multi-Specialty Current FAMILY PHONE: Unknown KARRI MONREAL Internal Medicine Current PHONE: Unknown LUIZ MCDONALD Cost Analyst/Emt I/85 Current PHONE: [phone] YUVAL DE LA CRUZ Nurse Practitioner: Family Current PHONE: [phone] DANA KIRK Internal Medicine Current PHONE: [phone] GERRY GOLDBERG I. Physician Lip And Gate Builder Current PHONE: Unknown Margie Sethi Nurse Practitioner: Family Current PHONE: [phone] YUE SHIRLEY Nurse Practitioner Current PHONE: Unknown BECKY JENSEN Nurse Practitioner Current PHONE: [phone] ELDER [facility] Current PHONE: Unknown CASSIE BARRIGA Internal Medicine Current PHONE: Unknown DEBRA CLARK Family Medicine Current PHONE: Unknown QUE GARCIA Nurse Practitioner: Family Current PHONE: Unknown [facility] has no Care Guidelines for this patient. E.DJair VISIT COUNT (12 MO.) [address] [facility] TOTAL 23 NOTE: Visits indicate total known visits. ED/UCC VISIT TRACKING (12 MO.) 05/03/2025 17:26 [facility] [place] TYPE: Emergency COMPLAINT: - EYE PROBLEM 03/12/2025 20:02 [facility] [place] TYPE: Emergency COMPLAINT: - DRESSING CHANGE DIAGNOSES: - Encounter for change or removal of nonsurgical wound dressing - Heart failure, unspecified - Hypertensive heart disease with heart failure - Other group home (current) drug therapy - Pure hypercholesterolemia, unspecified 03/07/2025 15:25 [facility] [place] TYPE: Emergency COMPLAINT: - HIGH BLOOD PREASRE DIAGNOSES: - Allergy status to other drugs, medicaments and biological substances - Heart failure, unspecified - Hypertensive heart disease with heart failure - Other termite control representative (current) drug therapy - Pain in left leg - Pain in right leg - Shortness of breath - Unspecified atrial fibrillation 03/02/2025 18:[address] [facility] [place] TYPE: Emergency COMPLAINT: - EDEMA DIAGNOSES: - Allergy status to other drugs, medicaments and biological substances - Heart failure, unspecified - Hypertensive heart disease with heart failure - Localized edema - Localized swelling, mass and lump, lower limb, bilateral - Other group home (current) drug therapy - Personal history of transient ischemic attack (TIA), and cerebral infarction without residual deficits - Pure hypercholesterolemia, unspecified - Unspecified atrial fibrillation 02/25/2025 14:40 [facility] [place] TYPE: Emergency COMPLAINT: - WOUND CARE 02/14/2025 05:57 [facility] [place] TYPE: Emergency COMPLAINT: - FOOT PAIN DIAGNOSES: - Allergy status to other drugs, medicaments and biological substances - Heart failure, unspecified - Hypertensive heart disease with heart failure - Localized edema - Localized swelling, mass and lump, lower limb, bilateral - Other group home (current) drug therapy [...] heart failure - Localized edema - Other termite control representative (current) drug therapy - Personal history of transient ischemic attack (TIA), and cerebral infarction without residual deficits - Pure hypercholesterolemia, unspecified - Unspecified atrial fibrillation 02/05/2025 11:27 [facility] [place] TYPE: Emergency COMPLAINT: - LEG PAIN DIAGNOSES: - Allergy status to other drugs, medicaments and biological substances - Heart failure, unspecified - Hypertensive heart disease with heart failure - Localized edema - Other termite control representative (current) drug therapy - Other specified soft tissue disorders - Pure hypercholesterolemia, unspecified - Unspecified atrial fibrillation 01/31/2025 00:03 [facility] [place] TYPE: Emergency COMPLAINT: - COLD SYMPTOMS [...] unspecified - Unspecified atrial fibrillation 01/30/2025 02:35 [facility] [place] TYPE: Emergency COMPLAINT: - SOB DIAGNOSES: - Allergy status to other drugs, medicaments and biological substances - Heart failure, unspecified - Hypertensive heart disease with heart failure - Other termite control representative (current) drug therapy - Personal history of [...] failure - Nutritional anemia, unspecified - Other group home (current) drug therapy [...] unspecified - Unspecified atrial fibrillation 01/09/2025 11:04 [facility] [place] TYPE: Emergency COMPLAINT: - CHEST PAIN DIAGNOSES: - Allergy status to other drugs, medicaments and biological substances - Atherosclerotic heart disease of [place] coronary artery without angina pectoris - Chest pain, unspecified - Heart failure, unspecified - Hypertensive heart disease with heart failure - Other group home (current) drug therapy - Presence of prosthetic heart valve - Pure hypercholesterolemia, unspecified - Unspecified atrial fibrillation 01/02/2025 14:[address] [facility] [place] TYPE: Emergency COMPLAINT: - CHEST PAIN DIAGNOSES: - Allergy status to other drugs, medicaments and biological substances - Heart failure, unspecified - Hypertensive heart disease with heart failure - Other termite control representative (current) drug therapy - Pain in throat - Pure hypercholesterolemia, unspecified - Unspecified atrial fibrillation 12/14/2024 11:19 [facility] [place] TYPE: Emergency COMPLAINT: - SHORTNESS OF BREATH DIAGNOSES: - Allergy status to other drugs, medicaments and biological substances - Heart failure, unspecified - Hypertensive heart disease with heart failure - Other group home (current) drug therapy - Shortness of breath 12/09/2024 03:[address] [facility] [place] TYPE: Emergency COMPLAINT: - VOMITING DIAGNOSES: - Allergy status to other drugs, medicaments and biological substances - Essential (primary) hypertension - Nausea with vomiting, unspecified - Noninfective gastroenteritis and colitis, unspecified - Other group home (current) drug therapy - Personal history of transient ischemic attack (TIA), and cerebral infarction without residual deficits - Pneumonia, unspecified organism - Pure hypercholesterolemia, unspecified 09/25/2024 19:20 [facility] [place] TYPE: Emergency COMPLAINT: - ANXIETY DIAGNOSES: - Allergy status to other drugs, medicaments and biological substances - Anxiety disorder, unspecified - Essential (primary) hypertension - Other termite control representative (current) drug therapy - Personal history of transient ischemic attack (TIA), and cerebral infarction without residual deficits - Pure hypercholesterolemia, unspecified - Shortness of breath - Unspecified atrial fibrillation 09/21/2024 23:[address] [facility] [place] TYPE: Emergency COMPLAINT: - SOB DIAGNOSES: - Anxiety disorder, unspecified - Shortness of breath Plus 3 More Visits INPATIENT VISIT TRACKING (12 MO.) No inpatient visits to display in this time frame [email or web address]
[2025-05-03] MEDS ORDERED: MAXITROL EYE DRO5 ML OU (19:44)
[2025-05-03] MEDS ORDERED: CIPROFLOXACIN 0.3% 5 ML HOME.PACK OPTH ONE (19:45)
[2025-05-03 20:00] VITALS: BP 106/67
== END 2025-05-03 20:00 | disposition home or self-care (01) ==
LOC: ED 17:26
DX: H10.9 Unspecified conjunctivitis (principal); I11.0 Hypertensive heart disease with heart failure; I50.9 Heart failure, unspecified; Z79.899 Other long term (current) drug therapy; Z88.8 Allergy status to other drugs, medicaments and biological substances
CPT/HCPCS: 99283

== ENCOUNTER 2025-05-23 22:52 | Emergency (ER) | payer MEDICARE, OTHER ==
[~2025-05-23] VITALS: Ht 177.8 cm; Wt 103.7 kg
--- OUTSIDE RECORDS SUMMARY | ~2025-05-23 | XMS | Continuity of Care Document ---
Demographics + + + | Address | [address] | | | [place] [address] | + + + | Preferred Language | Unknown | + + + | Marital Status | | + + + | Orthodox Affiliation | Unknown | + + + | Race | White | + + + | Ethnic Group | Not or | + + + Author + + + | Author | [facility] | + + + | Organization | [facility] | + + + | Address | [address] | | | [place] [address] | + + + | Phone | | + + + Care Team Providers + + + + | Care [employer] Player Name | Role | Phone | + + + + Unavailable | Unavailable | + + + + Unavailable | Unavailable | + + + + Allergies and Intolerances + + + + + + | date | description | facility | reaction | severity | + + + + + + | 2025-03-02 | Lisinopril | [facility] - | (no reaction) | (no severity) | | 00:00 | | [facility] | | | + + + + + + | 2025-05-03 | Lisinopril | [facility] - | (no reaction) | (no severity) | | 00:00 | | [facility] | | | + + + + + + | 2025-03-02 | Atorvastatin | [facility] - | (no reaction) | (no severity) | | 00:00 | | [facility] | | | + + + + + + | 2025-05-03 | Atorvastatin | [facility] - | (no reaction) | (no severity) | | 00:00 | | [facility] | | | + + + + + + | 2025-03-02 | Lisinopril | [facility] - | (no reaction) | (no severity) | | 00:00 | | [facility] | | | + + + + + + | 2025-05-03 | Lisinopril | [facility] - | (no reaction) | (no severity) | | 00:00 | | [facility] | | | + + + + + + | 2025-03-02 | Olmesartan | [facility] - | (no reaction) | (no severity) | | 00:00 | | [facility] | | | + + + + + + | 2025-05-03 | Olmesartan | [facility] - | (no reaction) | (no severity) | | 00:00 | | [facility] | | | + + + + + + | 2025-03-12 | Simvastatin | [facility] - | (no reaction) | (no severity) | | 00:00 | | [facility] | | | + + + + + + | 2025-05-03 | Simvastatin | [facility] - | (no reaction) | (no severity) | | 00:00 | | [facility] | | | + + + + + + | 2025-03-02 | Olmesartan | [facility] - | (no reaction) | (no severity) | | 00:00 | | [facility] | | | + + + + + + | 2025-05-03 | Olmesartan | [facility] - | (no reaction) | (no severity) | | 00:00 | | [facility] | | | + + + + + + | 2025-03-12 | Simvastatin | [facility] - | (no reaction) | (no severity) | | 00:00 | | [facility] | | | + + + + + + | 2025-05-03 | Simvastatin | [facility] - | (no reaction) | (no severity) | | 00:00 | | [facility] | | | + + + + + + | 2025-03-02 | Atorvastatin | [facility] - | (no reaction) | (no severity) | | 00:00 | | [facility] | | | + + + + + + | 2025-05-03 | Atorvastatin | [facility] - | (no reaction) | (no severity) | | 00:00 | | [facility] | | | + + + + + + | 2025-03-02 | Olmesartan | [facility] - | (no reaction) | (no severity) | | 00:00 | | [facility] | | | + + + + + + | 2025-05-03 | Olmesartan | [facility] - | (no reaction) | (no severity) | | 00:00 | | [facility] | | | + + + + + + | 2025-03-02 | Atorvastatin | [facility] - | (no reaction) | (no severity) | | 00:00 | | [facility] | | | + + + + + + | 2025-05-03 | Atorvastatin | [facility] - | (no reaction) | (no severity) | | 00:00 | | [facility] | | | + + + + + + | 2025-03-12 | Simvastatin | [facility] - | (no reaction) | (no severity) | | 00:00 | | [facility] | | | + + + + + + | 2025-05-03 | Simvastatin | [facility] - | (no reaction) | (no severity) | | 00:00 | | [facility] | | | + + + + + + | 2025-03-02 | Lisinopril | [facility] - | (no reaction) | (no severity) | | 00:00 | | [facility] | | | + + + + + + | 2025-05-03 | Lisinopril | [facility] - | (no [...] | (no date) | DOXEPIN HCL | [facility] | | | | [facility] | + + + + | (no date) | ONDANSETRON | [facility] | | | | [facility] | + + + + | (no date) | OXYCODONE HCL | [facility] | | | | [facility] | + + + + | (no date) | RIVAROXABAN | [facility] | | | | [facility] | + + + + | (no date) | DOCUSATE SODIUM | [facility] | | | | [facility] | + + + + | (no date) | Ergocalciferol (Vitamin | [facility] | | | D2) | [facility] | + + + + | (no date) | QUETIAPINE FUMARATE | [facility] | | | | [facility] | + + + + | (no date) | Naloxone HCl | [facility] | | | | [facility] | + + + + | (no date) | LITHIUM CARBONATE | [facility] | | | | [facility] | + + + + | (no date) | LORAZEPAM | [facility] | | | | [facility] | + + + + | (no date) | LAMOTRIGINE | [facility] | | | | [facility] | + + + + | (no date) | ACETAMINOPHEN | [facility] | | | | [facility] | + + + + | 2025-05-03 00:00 | ISABEL/POLYMYX B | [facility] | | | SULF/DEXAMETH | [facility] | + + + + | (no date) | ALPRAZOLAM | [facility] | | | | [facility] | + + + + | (no date) | FLUOXETINE HCL | [facility] | | | | [facility] | + + + + | (no date) | FUROSEMIDE | [facility] | | | | [facility] | + + + + | (no date) | PRAZOSIN HCL | [facility] | | | | [facility] | + + + + | (no date) | LATANOPROST | [facility] | | | | [facility] | + + + + | (no date) | ESCITALOPRAM OXALATE | [facility] | | | | [facility] | + + + + | (no date) | ESCITALOPRAM OXALATE | [facility] | | | | [facility] | + + + + | (no date) | ATORVASTATIN CALCIUM | [facility] | | | | [facility] | + + + + | (no date) | ATORVASTATIN | [facility] | | | | [facility] | + + + + | (no date) | FERROUS SULFATE | [facility] | | | | [facility] | + + + + | (no date) | DILTIAZEM HCL | [facility] | | | | [facility] | + + + + | (no date) | DILTIAZEM HCL | [facility] | | | | [facility] | + + + + | (no date) | TRAZODONE HCL | [facility] | | | | [facility] | + + + + | (no date) | HYDROCODONE | [facility] | | | BIT/ACETAMINOPHEN | [facility] | + + + + | (no date) | HYDROCODONE/APAP | [facility] | | | (10-325MG) | [facility] | + + + + | 2025-03-07 00:00 | HYDROCODONE | [facility] | | | BIT/ACETAMINOPHEN | [facility] | + + + + | (no date) | ALBUTEROL SULFATE | [facility] | | | | [facility] | + + + + | (no date) | TAMSULOSIN HCL | [facility] | | | | [facility] | + + + + | (no date) | BUSPIRONE HCL | [facility] | | | | [facility] | + + + + | (no date) | BUSPIRONE HCL | [facility] | | | | [facility] | + + + + | (no date) | POLYETHYLENE GLYCOL 3350 | [facility] | | | | [facility] | + + + + | (no date) | POLYETHYLENE GLYCOL 3350 | [facility] | | | | [facility] | + + + + | (no date) | HYDROMORPHONE HCL | [facility] | | | | [facility] | + + + + | (no date) | LOSARTAN POTASSIUM | [facility] | | | | [facility] | + + + + | (no date) | BUPROPION HCL | [facility] | | | | [facility] | + + + + | (no date) | hydrOXYzine HCL | [facility] | | | | [facility] | + + + + Problems + + + + | date | description | facility | + + + + | 2025-02-25 00:00 | Encounter for medical | [facility] | | | screening examination | [facility] | + + + + | 2025-03-07 00:00 | Atrial fibrillation | [facility] | | | | [facility] | + + + + | 2025-03-07 00:00 | Pain of lower extremity | [facility] | | | | [facility] | + + + + | 2025-03-12 00:00 | Encounter for wound | [facility] | | | re-check | [facility] | + + + + | 2025-05-03 00:00 | Conjunctivitis | [facility] | | | | [facility] | + + + + Procedures No information. Results/Labs +--------+--------+ +---------+--------+---------+ | test | date | facility | value | unit | notes | +--------+--------+ +---------+--------+---------+ + + | Result panel 1 | + + + + + +--------+ + + | WBC # Bld | 2025-03-07 | | 8.70 | (missing) | (missing) | | Auto | 16:25:07 | [facility] | | | | + + + +--------+ + + + + | Result panel 2 | + + + + + +--------+ + + | Lymphocytes | 2025-03-07 | | 13.7 | (missing) | (missing) | | NFr Bld | 16:25:07 | [facility] | | | | | Auto | [facility] | | | | + + + +--------+ + + + + | Result panel 3 | + + + + + +--------+ + + | Monocytes | 2025-03-07 | | 13.3 | (missing) | (missing) | | NFr Bld Auto | 16:25:07 | [facility] | | | | + + + +--------+ + + + + | Result panel 4 | + + + + + +-------+ + + | Eosinophil | 2025-03-07 | | 1.4 | (missing) | (missing) | | NFr Bld Auto | 16:25:07 | [facility] | | | | + + + +-------+ + + + + | Result panel 5 | + + + + + +-------+ + + | Basophils | 2025-03-07 | | 0.8 | (missing) | (missing) | | NFr Bld Auto | 16:25:07 | [facility] | | | | | | | - | | | | | | | [facility] | | | | + + + +-------+ + + + + | Result panel 6 | + + + + + +--------+ + + | D Dimer PPP | 2025-03-07 | | 2.21 | (missing) | (missing) | | Sigrid | 16:25:07 | [facility] | | | | + + + +--------+ + + + + | Result panel 7 | + + + + + +--------+ + + | RBC # Bld | 2025-03-07 | | 3.70 | (missing) | (missing) | | Auto | 16:25:07 | [facility] | | | | + + + +--------+ + + + + | Result panel 8 | + + + + + +--------+ + + | Hgb | 2025-03-07 | | 11.3 | (missing) | (missing) | | Bld-mCnc | 16:25:07 | [facility] | | | | + + + +--------+ + + + + | Result panel 9 | + + + + + +-------+---------+ + | Glucose | 2025-03-07 | | 101 | mg/dL | (missing) | | SerPl-mCnc | 16:25:07 | [facility] | | | | + + + +-------+---------+ + + + | Result panel 10 | + + + + + +------+---------+ + | BUN | 2025-03-07 | | 29 | mg/dL | (missing) | | SerPl-mCnc | 16:25:07 | [facility] | | | | + + + +------+---------+ + + + | Result panel 11 | + + + + + +--------+---------+ + | Creat | 2025-03-07 | | 1.33 | mg/dL | (missing) | | SerPl-mCnc | 16:25:07 | [facility] | | | | + + + +--------+---------+ + + + | Result panel 12 | + + + + + +------+ + + | eGFRcr | 2025-03-07 | | 54 | (missing) | (missing) | | SerPlBld | 16:25:07 | [facility] | | | | | CKD-EPI 2020 | | - | | | | | | | [facility] | | | | + + + +------+ + + + + | Result panel 13 | + + + + + +---------+ + + | BUN/Creat | 2025-03-07 | | 21.80 | (missing) | (missing) | | SerPl | 16:25:07 | [facility] | | | | | | | - | | | | | | | [facility] | | | | + + + +---------+ + + + + | Result panel 14 | + + + + + +--------+ + + | Hct VFr.DF | 2025-03-07 | | 34.6 | (missing) | (missing) | | Bld Auto | 16:25:07 | [facility] | | | | | | | - | | | | | | | [facility] | | | | + + + +--------+ + + + + | Result panel 15 | + + + + + +-------+ + + | Sodium | 2025-03-07 | | 133 | (missing) | (missing) | | SerPl-sCnc | 16:25:07 | [facility] | | | | + + + +-------+ + + + + | Result panel 16 | + + + + + +-------+ + + | Potassium | 2025-03-07 | | 4.3 | (missing) | (missing) | | SerPl-sCnc | 16:25:07 | [facility] | | | | + + + +-------+ + + + + | Result panel 17 | + + + + + +------+ + + | Chloride | 2025-03-07 | | 97 | (missing) | (missing) | | SerPl-sCnc | 16:25:07 | [facility] | | | | + + + +------+ + + + + | Result panel 18 | + + + + + +------+ + + | CO2 | 2025-03-07 | | 28 | (missing) | (missing) | | SerPl-sCnc | 16::07 | [facility] | | | | + + + +------+ + + + + | Result panel 19 | + + + + + +--------+ + + | Anion Gap | 2025-03-07 | | 12.3 | (missing) | (missing) | | SerPl | 16:25:07 | [facility] | | | | | Calculated.4 | [facility] I[facility]-sCnc | [facility] | | | | + + + +--------+ + + + + | Result panel 20 | + + + + + +-------+---------+ + | Calcium | 2025-03-07 | | 8.5 | mg/dL | (missing) | | SerPl-mCnc | 16:25:07 | [facility] | | | | + + + +-------+---------+ + + + | Result panel 21 | + + + + + +-------+ + + | Prot | 2025-03-07 | | 6.6 | (missing) | (missing) | | SerPl-mCnc | 16:25:07 | [facility] | | | | + + + +-------+ + + + + | Result panel 22 | + + + + + +-------+ + + | Albumin | 2025-03-07 | | 2.6 | (missing) | (missing) | | [facility] | 16:25:07 | [facility] | | | | + + + +-------+ + + + + | Result panel 23 | + + + + + +-------+ + + | Globulin | 2025-03-07 | | 4.0 | (missing) | (missing) | | Ser-mCnc | 16:25:07 | [facility] | | | | + + + +-------+ + + + + | Result panel 24 | + + + + + +--------+ + + | | 2025-03-07 | | 0.65 | (missing) | (missing) | | Albumin/Glob | 16:25:07 | [facility] | | | | | SerPl | [facility] | | | | + + + +--------+ + + + + | Result panel 25 | + + + + + +--------+ + + | RBC Auto | 2025-03-07 | | 93.5 | (missing) | (missing) | | | 16:25:07 | [facility] | | | | + + + +--------+ + + + + | Result panel 26 | + + + + + +-------+---------+ + | Bilirub | 2025-03-07 | | 1.6 | mg/dL | (missing) | | SerPl-mCnc | 16:25:07 | [facility] | | | | + + + +-------+---------+ + + + | Result panel 27 | + + + + + +------+ + + | AST | 2025-03-07 | | 56 | (missing) | (missing) | | SerPl-cCnc | 16::07 | [facility] | [facility] | | [facility] | | | | + + + +------+ + + + + | Result panel 28 | + + + + + +------+ + + | ALT | 2025-03-07 | | 28 | (missing) | (missing) | | SerPl-cCnc | 16:25:07 | [facility] | | | [facility] | | | | + + + +------+ + + + + | Result panel 29 | + + + + + +-------+ + + | ALP | 2025-03-07 | | 140 | (missing) | (missing) | | SerPl-cCn | 16:25:07 | [facility] | | | [facility] | [facility] | | | | + + + +-------+ + + + + | Result panel 30 | + + + + + +--------+ + + | Troponin I | 2025-03-07 | | 16.9 | (missing) | (missing) | | SerPl | 16:25:07 | [facility] | | | | | [facility] | [facility] | | | | + + + +--------+ + + + + | Result panel 31 | + + + + + +--------+ + + | MCH RBC Qn | 2025-03-07 | | 30.5 | (missing) | (missing) | | Auto | 16:25:07 | [facility] | | | | + + + +--------+ + + + + | Result panel 32 | + + + + + +--------+ + + | MCHC RBC | 2025-03-07 | | 32.7 | (missing) | (missing) | | Auto-EntMCnc | 16::07 | [facility] | | | | | | | - | | | | | | | [facility] | | | | + + + +--------+ + + + + | Result panel 33 | + + + + + +-------+ + + | Platelet # | 2025-03-07 | | 179 | (missing) | (missing) | | Bld Auto | ::07 | [facility] | | | | [facility] | | | | + + + +-------+ + + + + | Result panel 34 | + + + + + +--------+ + + | Neutrophils | 2025-03-07 | | 70.5 | (missing) | (missing) | | NFr Bld | 16:25:07 | [facility] | | | | | Auto | [facility] | | | | + + + +--------+ + + + + | Result panel 35 | + + + + + + + + + | Bacteria | 2025-03-07 | | BETA | (missing) | (missing) | | Spec Aerobe | 17:05:07 | [facility] | STREPTOCOCCU | | | | Cult | [facility] | | | | | | [facility] | | | | + + + + + + + + + | Result panel 36 | + + + + + + + + + | Bacteria | 2025-03-07 | | PSEUDOMONAS | (missing) | (missing) | | Spec Aerobe | 17:05:07 | [facility] | AERUGINOSA | | | | Cult | [facility] - [facility] | | | | + + + + + + + + + | Result panel 37 | + + + + + +-------+ + + | Lactate | 2025-03-07 | | 0.9 | (missing) | (missing) | | SerPl-sCnc | 18:34:07 | [facility] | | | | | | [facility] | | | | + + + +-------+ + + + + | Result panel 38 | + + + + + + + + + | Color Ur | 2025-03-07 | | YELLOW | (missing) | (missing) | | Auto | 19:53:07 | [facility] | | | | | | [facility] | | | | + + + + + + + + + | Result panel 39 | + + + + + +---------+ + + | Character | 2025-03-07 | | CLEAR | (missing) | (missing) | | Ur | 19:53:07 | [facility] | | | | | | [facility] | | | | + + + +---------+ + + + + | Result panel 40 | + + + + + + + + + | Glucose Ur | 2025-03-07 | | NEGATIVE | (missing) | (missing) | | Ql Strip | 19:53:07 | [facility] | | | | | | [facility] | | | | + + + + + + + + + | Result panel 41 | + + + + + + + + + | Louann Ur | 2025-03-07 | | NEGATIVE | (missing) | (missing) | | Ql Strip | 19:53:07 | [facility] | | | | | | [facility] | | | | + + + + + + + + + | Result panel 42 | + + + + + + + + + | Ketones Ur | 2025-03-07 | | NEGATIVE | (missing) | (missing) | | Ql Strip | 19:53:07 | [facility] | | | | | | [facility] | | | | + + + + + + + + + | Result panel 43 | + + + + + +---------+ + + | Sp Gr Ur | 2025-03-07 | | 1.010 | (missing) | (missing) | | Strip | 19:53:07 | [facility] | | | | | | [facility] | | | | + + + +---------+ + + + + | Result panel 44 | + + + + + + + + + | Hgb Ur Ql | 2025-03-07 | | MODERATE | (missing) | (missing) | | Strip | 19:53:07 | [facility] | | | | | | [facility] | | | | + + + + + + + + + | Result panel 45 | + + + + + +-------+ + + | pH Ur Strip | 2025-03-07 | | 5.5 | (missing) | (missing) | | | 19:53:07 | [facility] | | | | | | [facility] | | | | + + + +-------+ + + + + | Result panel 46 | + + + + + + + + + | Prot Ur | 2025-03-07 | | NEGATIVE | (missing) | (missing) | | Strip-mCcaridad | 19:53:07 | [facility] | | | | | | [facility] | | | | + + + + + + + + + | Result panel 47 | + + + + + + + + + | | 2025-03-07 | | NORMAL | (missing) | (missing) | | Urobilinogen | 19:53:07 | [facility] | | | | | Ur | | [facility] | Strip-mCnc | | [facility] | | | | + + + + + + + + + | Result panel 48 | + + + + + + + + + | Nitrite Ur | 2025-03-07 | | NEGATIVE | (missing) | (missing) | | Ql Strip | 19:53:07 | [facility] | | | | | | [facility] | | | | + + + + + + + + + | Result panel 49 | + + + + + + + + + | Leukocyte | 2025-03-07 | | NEGATIVE | (missing) | (missing) | | esterase Ur | 19:53:07 | [facility] | | | | | Ql Strip | [facility] | | | | + + + + + + + + + | Result panel 50 | + + + + + +-------+ + + | RBC #/area | 2025-03-07 | | 4-6 | (missing) | (missing) | | UrnS HPF | 19:53:07 | [facility] | | | | | | [facility] | | | | + + + +-------+ + + + + | Result panel 51 | + + + + + +-------+ + + | WBC #/area | 2025-03-07 | | 2-3 | (missing) | (missing) | | UrnS HPF | 19:53:07 | [facility] | | | | | | [facility] | | | | + + + +-------+ + + + + | Result panel 52 | + + + + + + + + + | Epi Cells | 2025-03-07 | | SQUAMOUS 1+ | (missing) | (missing) | | #/area UrnS | 19:53:07 | [facility] | | [facility] | | | | + + + + + + + + + | Result panel 53 | + + + + + + + + + | Crystals | 2025-03-07 | | NONE SEEN | (missing) | (missing) | | Urn[facility] Micro | 19:53:07 | [facility] | | | | | | [facility] | | [facility] | | | | + + + + + + + + + | Result panel 54 | + + + + + +--------+ + + | Bacteria | 2025-03-07 | | RARE | (missing) | (missing) | | #/area PapinS | 19:53:07 | [facility] | | | | + + + +--------+ + + + + | Result panel 55 | + + + + + + + + + | Casts | 2025-03-07 | | HYALINE 1+ | (missing) | (missing) | | #/area UrnS | 19:53:07 | [facility] | | | | + + + + + + + + + | Result panel 56 | + + + + + +------+ + + | Bacteria Ur | 2025-03-07 | | No | (missing) | (missing) | | Cult | 19:53:07 | [facility] | | | | + + + +------+ + + + + | Result panel 57 | + + + + + + + + + | Urn Spec | 2025-03-07 | | CLEAN CATCH | (missing) | (missing) | | Collect Meth | 19:53:07 | [facility] | | | | + + + + + + + Social History +--------+ + + | date | description | facility | +--------+ + + Vital Signs + + + +---------+ | date | measurement | value | units | + + + +---------+ | 2025-02-25 00:00 | BMI | 33.2 | kg/m2 | + + + +---------+ | 2025-02-25 00:00 | BP_diastolic | 64 | mmHg | + + + +---------+ | 2025-02-25 00:00 | BP_systolic | 106 | mmHg | + + + +---------+ | 2025-02-25 00:00 | heart_rate | 88 | /min | + + + +---------+ | 2025-02-25 00:00 | height_metric | 177.8 | cm | + + + +---------+ | 2025-02-25 00:00 | height_standard | 70 | in | + + + +---------+ | 2025-02-25 00:00 | o2_saturation | 96 | % | + + + +---------+ | 2025-02-25 00:00 | respiration_rate | 16 | /min | + + + +---------+ | 2025-02-25 00:00 | | 97.8 | F | | | temperature_standar | | | | | d | | | + + + +---------+ | 2025-02-25 00:00 | weight_metric | 105.001 | kg | + + + +---------+ | 2025-02-25 00:00 | weight_standard | 231.487 | lb | + + + +---------+ | 2025-03-02 00:00 | BMI | 33.2 | kg/m2 | + + + +---------+ | 2025-03-02 00:00 | BP_diastolic | 58 | mmHg | + + + +---------+ | 2025-03-02 00:00 | BP_systolic | 93 | mmHg | + + + +---------+ | 2025-03-02 00:00 | heart_rate | 96 | /min | + + + +---------+ | 2025-03-02 00:00 | height_metric | 177.8 | cm | + + + +---------+ | 2025-03-02 00:00 | height_standard | 70 | in | + + + +---------+ | 2025-03-02 00:00 | o2_saturation | 97 | % | + + + +---------+ | 2025-03-02 00:00 | respiration_rate | 16 | /min | + + + +---------+ | 2025-03-02 00:00 | | 98.6 | F | | | temperature_standar | | | | | d | | | + + + +---------+ | 2025-03-02 00:00 | weight_metric | 105.001 | kg | + + + +---------+ | 2025-03-02 00:00 | weight_standard | 231.487 | lb | + + + +---------+ | 2025-03-07 00:00 | BMI | 33.2 | kg/m2 | + + + +---------+ | 2025-03-07 00:00 | BP_diastolic | 62 | mmHg | + + + +---------+ | 2025-03-07 00:00 | BP_systolic | 95 | mmHg | + + + +---------+ | 2025-03-07 00:00 | heart_rate | 116 | /min | + + + +---------+ | 2025-03-07 00:00 | height_metric | 177.8 | cm | + + + +---------+ | 2025-03-07 00:00 | height_standard | 70 | in | + + + +---------+ | 2025-03-07 00:00 | o2_saturation | 98 | % | + + + +---------+ | 2025-03-07 00:00 | respiration_rate | 19 | /min | + + + +---------+ | 2025-03-07 00:00 | | 99 | F | | | temperature_standar | | | | | d | | | + + + +---------+ | 2025-03-07 00:00 | weight_metric | 105.001 | kg | + + + +---------+ | 2025-03-07 00:00 | weight_standard | 231.487 | lb | + + + +---------+ | 2025-03-12 00:00 | BMI | 31.2 | kg/m2 | + + + +---------+ | 2025-03-12 00:00 | BP_diastolic | 71 | mmHg | + + + +---------+ | 2025-03-12 00:00 | BP_systolic | 109 | mmHg | + + + +---------+ | 2025-03-12 00:00 | heart_rate | 75 | /min | + + + +---------+ | 2025-03-12 00:00 | height_metric | 177.8 | cm | + + + +---------+ | 2025-03-12 00:00 | height_standard | 70 | in | + + + +---------+ | 2025-03-12 00:00 | o2_saturation | 98 | % | + + + +---------+ | 2025-03-12 00:00 | respiration_rate | 18 | /min | + + + +---------+ | 2025-03-12 00:00 | | 97.5 | F | | | temperature_standar | | | | | d | | | + + + +---------+ | 2025-03-12 00:00 | weight_metric | 98.6 | kg | + + + +---------+ | 2025-03-12 00:00 | weight_standard | 217.375 | lb | + + + +---------+ | 2025-05-03 00:00 | BMI | 32.1 | kg/m2 | + + + +---------+ | 2025-05-03 00:00 | BP_diastolic | 67 | mmHg | + + + +---------+ | 2025-05-03 00:00 | BP_systolic | 106 | mmHg | + + + +---------+ | 2025-05-03 00:00 | heart_rate | 81 | /min | + + + +---------+ | 2025-05-03 00:00 | height_metric | 177.8 | cm | + + + +---------+ | 2025-05-03 00:00 | height_standard | 70 | in | + + + +---------+ | 2025-05-03 00:00 | o2_saturation | 98 | % | + + + +---------+ | 2025-05-03 00:00 | respiration_rate | 16 | /min | + + + +---------+ | 2025-05-03 00:00 | | 97.5 | F | | | temperature_standar | | | | | d | | | + + + +---------+ | 2025-05-03 00:00 | weight_metric | 101.5 | kg | + + + +---------+ | 2025-05-03 00:00 | weight_standard | 223.768 | lb | + + + +---------+"
[~2025-05-23 22:52] MED LIST changes: +MAXITROL EYE DRO5 ML OU
--- OUTSIDE RECORDS SUMMARY | 2025-05-23 22:59 | XMS ---
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 Paramedic Events No recent Security Events currently on file CRITERIA MET - 6 ED Visits in 6 Months - Group Notification - [facility] - 2 Visits in 30 Days CARE PROVIDERS BELEN COBIAN Topographical Surveyor/Manager Psychiatry 10/12/2022-Current PHONE: [phone] Myra Jacobson Topographical Surveyor/Manager Psychiatry 01/26/2022-Current PHONE: [phone] -, [facility]: Medical Charge Entry Specialist Current Ld PHONE: [phone] GERARD JOYCE Nurse Practitioner: Family Current PHONE: [phone] ELA WEISS Managing Director Atlasshira Tarango PHONE: [phone] [facility]: Multi-Specialty Current FAMILY PHONE: Unknown KARRI MONREAL Internal Medicine Current PHONE: Unknown LUIZ MCDONALD Topographical Surveyor/Manager Psychiatry Current PHONE: [phone] YUVAL DE LA CRUZ Nurse Practitioner: Family Current PHONE: [phone] DANA KIRK Internal Medicine Current PHONE: [phone] GERRY GOLDBERG I. Physician Criminal Intelligence Analyst Current PHONE: Unknown Margie Sethi Nurse Practitioner: Current PHONE: [phone] YUE SHIRLEY Nurse Practitioner Current PHONE: Unknown BECKY JENSEN Nurse Practitioner Current PHONE: [phone] [facility]: Unknown CASSIE BARRIGA Internal Medicine Current PHONE: Unknown DEBRA CLARK [facility] Current PHONE: Unknown QUE GARCIA Nurse Practitioner: Family Current PHONE: Unknown Cheko has no Care Guidelines for this patient. E.D. VISIT COUNT (12 MO.) [address] [facility] TOTAL 24 NOTE: Visits indicate total known visits. ED/UCC VISIT TRACKING (12 MO.) 05/23/2025 22:52 [facility] [place] TYPE: Emergency COMPLAINT: - ANXIETY 05/14/2025 22:55 [facility] [place] TYPE: Emergency COMPLAINT: - ANXIETY DIAGNOSES: - Allergy status to other drugs, medicaments and biological substances - Anxiety disorder, unspecified - Heart failure, unspecified - Hypertensive heart disease with heart failure - Other chest pain - Other penitentiary (current) drug therapy - Unspecified atrial fibrillation 05/03/2025 17:26 [facility] [place] TYPE: Emergency COMPLAINT: - EYE PROBLEM DIAGNOSES: - Allergy status to other drugs, medicaments and biological substances - Heart failure, unspecified - Hypertensive heart disease with heart failure - Ocular pain, bilateral - Other penitentiary (current) drug therapy - Unspecified conjunctivitis 03/12/2025 20:02 [facility] [place] TYPE: Emergency COMPLAINT: - DRESSING CHANGE DIAGNOSES: - Encounter for change or removal of nonsurgical wound dressing - Heart failure, unspecified - Hypertensive heart disease with heart failure - Other exterminator (current) drug therapy - Pure hypercholesterolemia, unspecified 03/07/2025 15:25 [facility] [place] TYPE: Emergency COMPLAINT: - HIGH BLOOD PREASRE DIAGNOSES: - Allergy status to other drugs, medicaments and biological substances - Heart failure, unspecified - Hypertensive heart disease with heart failure - Other penitentiary (current) drug therapy - Pain in left leg - Pain in right leg - Shortness of breath - Unspecified atrial fibrillation 03/02/2025 18:54 [facility] [place] TYPE: Emergency COMPLAINT: - EDEMA DIAGNOSES: - Allergy status to other drugs, medicaments and biological substances - Heart failure, unspecified - Hypertensive heart disease with heart failure - Localized edema - Localized swelling, mass and lump, lower limb, bilateral - Other exterminator (current) drug therapy - Personal history [...] and lump, lower limb, bilateral - Other exterminator (current) drug therapy - Personal history of transient ischemic attack (TIA), and cerebral infarction without residual deficits - Pure hypercholesterolemia, unspecified - Unspecified atrial fibrillation 02/12/2025 01:[address] [facility] [place] TYPE: Emergency COMPLAINT: - LEG PAIN DIAGNOSES: - Allergy status to other drugs, medicaments and biological substances - Cramp and spasm - Heart failure, unspecified - Hypertensive heart disease with heart failure - Pain in right thigh - Unspecified atrial fibrillation 02/08/2025 09:18 [facility] [place] TYPE: Emergency COMPLAINT: - LEG SWELLING DIAGNOSES: - Allergy status to other drugs, medicaments and biological substances - Heart failure, unspecified - Hypertensive heart disease with heart failure - Localized edema - Other penitentiary (current) drug therapy - Personal history of transient ischemic attack (TIA), and cerebral infarction without residual deficits - Pure hypercholesterolemia, unspecified - Unspecified atrial fibrillation 02/05/2025 11:[address] [facility] [place] TYPE: Emergency COMPLAINT: - LEG PAIN DIAGNOSES: - Allergy status to other drugs, medicaments and biological substances - Heart failure, unspecified - Hypertensive heart disease with heart failure - Localized edema - Other exterminator (current) drug therapy - Other specified soft tissue disorders - Pure hypercholesterolemia, unspecified - Unspecified atrial fibrillation 01/31/2025 00:03 [facility] [place] TYPE: Emergency COMPLAINT: - COLD SYMPTOMS DIAGNOSES: - Allergy status to other drugs, medicaments and biological substances - Anxiety disorder, unspecified - Cough, unspecified - Heart failure, unspecified - Hypertensive heart disease with heart failure - Other exterminator (current) drug therapy - Personal history of transient ischemic attack (TIA), and cerebral infarction without residual deficits - Pure hypercholesterolemia, unspecified - Unspecified atrial fibrillation 01/30/2025 02:35 [facility] [place] TYPE: Emergency COMPLAINT: - SOB DIAGNOSES: - Allergy status to other drugs, medicaments and biological substances - Heart failure, unspecified - Hypertensive heart disease with heart failure - Other exterminator (current) drug therapy - Personal history of transient ischemic attack (TIA), and cerebral infarction without residual deficits - Pure hypercholesterolemia, unspecified - Shortness of breath - Unspecified atrial fibrillation 01/16/2025 05:[address] [facility] [place] TYPE: Emergency COMPLAINT: - VISUAL CHANGES DIAGNOSES: - Allergy status to other drugs, medicaments and biological substances - Anxiety disorder, unspecified - Disorientation, unspecified - Heart failure, unspecified - Hyperlipidemia, unspecified - Hypertensive heart disease with heart failure - Other penitentiary (current) drug therapy - Unspecified atrial fibrillation 01/10/2025 05:48 [facility] [place] TYPE: Emergency COMPLAINT: - SHORTNESS OF BREATH DIAGNOSES: - Allergy status to other drugs, medicaments and biological substances - Heart failure, unspecified - Hypertensive heart disease with heart failure - Nutritional anemia, unspecified - Other penitentiary (current) drug therapy - Personal history of nicotine dependence - Personal history of transient ischemic attack (TIA), and cerebral infarction without residual deficits - Presence of prosthetic heart valve - Pulmonary hypertension, unspecified - Pure hypercholesterolemia, unspecified - Shortness of breath - Unspecified atrial fibrillation 01/09/2025 19:32 [facility] [place] TYPE: Emergency COMPLAINT: - SORE THROAT DIAGNOSES: - Acute pharyngitis due to other specified organisms - Acute pharyngitis, unspecified - Allergy status to other drugs, medicaments and biological substances - Heart failure, unspecified - Hypertensive heart disease with heart failure - Other exterminator (current) drug therapy - Other viral agents as the cause of diseases classified elsewhere - Pure hypercholesterolemia, unspecified - Unspecified atrial fibrillation 01/09/2025 11:04 [facility] [place] TYPE: Emergency COMPLAINT: - CHEST PAIN DIAGNOSES: - Allergy status to other drugs, medicaments and biological substances - Atherosclerotic heart disease of minto coronary artery without angina pectoris - Chest pain, unspecified - Heart failure, unspecified - Hypertensive heart disease with heart failure - Other exterminator (current) drug therapy - Presence of prosthetic heart valve - Pure hypercholesterolemia, unspecified - Unspecified atrial fibrillation 01/02/2025 14:35 [facility] [place] TYPE: Emergency COMPLAINT: - CHEST PAIN DIAGNOSES: - Allergy status to other drugs, medicaments and biological substances - Heart failure, unspecified - Hypertensive heart disease with heart failure - Other exterminator (current) drug therapy - Pain in throat - Pure hypercholesterolemia, unspecified - Unspecified atrial fibrillation 12/14/2024 11:19 [facility] [place] TYPE: Emergency COMPLAINT: - SHORTNESS OF BREATH DIAGNOSES: - Allergy status to other drugs, medicaments and biological substances - Heart failure, unspecified - Hypertensive heart disease with heart failure - Other exterminator (current) drug therapy - Shortness of breath 12/09/2024 03:[address] [facility] [place] TYPE: Emergency COMPLAINT: - VOMITING DIAGNOSES: - Allergy status to other drugs, medicaments and biological substances - Essential (primary) hypertension - Nausea with vomiting, unspecified - Noninfective gastroenteritis and colitis, unspecified - Other penitentiary (current) drug therapy - Personal history of transient ischemic attack (TIA), and cerebral infarction without residual deficits - Pneumonia, unspecified organism - Pure hypercholesterolemia, unspecified Plus 4 More Visits INPATIENT VISIT TRACKING (12 MO.) No inpatient visits to display in this time frame [email or web address]
[2025-05-23] MEDS ORDERED: LORazepam 0.5 MG TAB PO ONE (23:30)
[2025-05-24] MEDS ORDERED: ATIVAN0.5 MG PO (00:05)
[2025-05-24 00:15] VITALS: BP 105/64
== END 2025-05-24 00:15 | disposition home or self-care (01) ==
LOC: ED 22:52
DX: F41.9 Anxiety disorder, unspecified (principal); I11.0 Hypertensive heart disease with heart failure; I48.91 Unspecified atrial fibrillation; I50.9 Heart failure, unspecified; Z88.8 Allergy status to other drugs, medicaments and biological substances; Z79.899 Other long term (current) drug therapy
CPT/HCPCS: 99283